=== PATIENT | female | born 1975 | race African-American/Black ===

== ENCOUNTER 2016-02-19 05:49 | Inpatient (IN) | payer MEDICAID ==
[~2016-02-19] VITALS: Ht 162.6 cm; Wt 75.0 kg
[2016-02-19] VITALS (30 sets, daily range): BP systolic 146–188; BP diastolic 75–98
[~2016-02-19 05:49] MED LIST: ASPI81TA2 PO; ASPI81TA9 PO; CARV12.5 PO; CLOP75TA PO; FERR325T58 PO; LOVA40TA2 PO; METF10002 PO; PANT40TA5 PO; PRAV10TA2 PO; [UNRECOGNIZED DRUG - REMARK] PO
--- NOTE | 2016-02-19 06:21 | PHYS DOC ---
Past Medical History Past Medical History: Anemia, Anxiety, CVA, Diabetes-Type II, Hypertension Past Surgical History: Alcohol Use: Occasionally Drug Use: Marijuana Adult General Chief Complaint Chief Complaint: HEADACHE HPI HPI Patient is a 40 year old female who presents with complaint of severe headache. Patient states that this awoke her from sleep approximately 2 hours prior to arrival. Patient states that her pain is along the right side of her head. Patient rates her pain as 10 out of 10. Patient states that she is having associated nausea and has had episodes of vomiting in the emergency department prior to my patient interview. Patient denies any fevers or recent illnesses. The patient has history of diabetes mellitus, hypertension, history of myocardial infarction and stroke. The patient is supposed to be taking medications for all of these problems however the patient states that she did not take her medications yesterday. Patient states that she does not have a primary physician at this time. Patient has not taken any medications this morning to help with her symptoms. Patient denies any unilateral weakness, difficulty with speech or swallowing, or vision loss at this time. Review of Systems Review of Systems Constitutional: Denies fever or chills [] Eyes: Denies change in visual acuity, redness, or eye pain [] HENT: Denies nasal congestion or sore throat [] Respiratory: Denies cough or shortness of breath [] Cardiovascular: Denies chest pain or edema [] GI: Nausea, vomiting, denies abdominal pain, bloody stools or diarrhea [] : Denies dysuria or hematuria [] Musculoskeletal: Denies back pain or joint pain [] Integument: Denies rash or skin lesions [] Neurologic: Headache, denies focal weakness or sensory changes [] Endocrine: Denies polyuria or polydipsia [] Current Medications Current Medications Current Medications Medications (Trade) Dose Ordered Sig/Payton Start Time Stop Time Status Last Admin Dose Admin Acetaminophen (Tylenol) 650 mg PRN Q4HRS PRN 02/19/16 08:30 02/20/16 08:29 Fentanyl Citrate (Fentanyl 2ml Vial) 50 mcg PRN Q15MIN PRN 02/19/16 06:30 02/20/16 06:29 02/19/16 08:04 50 MCG Fentanyl Citrate 50 mcg 50 mcg PRN Q2HR PRN 02/19/16 08:30 02/20/16 08:29 Hydralazine HCl (Apresoline) 10 mg 1X ONCE 02/19/16 06:30 02/19/16 06:31 DC 02/19/16 06:41 10 MG Lorazepam (Ativan) 1 mg 1X ONCE 02/19/16 07:00 02/19/16 07:08 DC 02/19/16 07:49 1 MG Lorazepam 1 mg 1 mg 1X ONCE 02/19/16 08:00 02/19/16 08:00 DC Nitroglycerin/ Dextrose (Nitroglycerin Drip) 250 ml @ 0 mls/hr CONT PRN 02/19/16 08:30 02/19/16 08:37 0 MLS/HR Ondansetron HCl (Zofran) 4 mg PRN Q8HRS PRN 02/19/16 08:30 02/20/16 08:29 Promethazine HCl (Phenergan Im) 25 mg 1X ONCE 02/19/16 07:00 02/19/16 07:01 DC 02/19/16 07:49 25 MG Sodium Chloride (Iv Sodium Chloride 0.9% 1000ml Bag) 1,000 ml @ 100 mls/hr Q10H 02/19/16 08:18 02/20/16 08:17 Allergies Allergies Allergies Coded Allergies Type Severity Reaction Last Updated Verified Sulfa (Sulfonamide Antibiotics) Allergy Intermediate hives 06/08/15 Yes lisinopril Allergy Intermediate hives 06/08/15 Yes Physical Exam Physical Exam Constitutional: Alert, afebrile, appears in moderate discomfort [] HENT: Normocephalic, atraumatic, bilateral external ears normal, oropharynx moist, no oral exudates, nose normal. [] Eyes: PERRLA, EOMI, conjunctiva normal, no discharge. [] Neck: Normal range of motion, no tenderness, supple, no stridor. [] Cardiovascular:Heart rate regular rhythm, no murmur [] Lungs & Thorax: Bilateral breath sounds clear to auscultation [] Abdomen: Bowel sounds normal, soft, no tenderness, no masses, no pulsatile masses. [] Skin: Warm, dry, no erythema, no rash. [] Back: No tenderness, no CVA tenderness. [] Extremities: No tenderness, no cyanosis, no clubbing, ROM intact, no edema. [] Neurologic: Alert and oriented X 3, normal motor function, normal sensory function, no focal deficits noted. [] Current Patient Data Vital Signs Vital Signs Date Time Temp Pulse Resp B/P Pulse Ox O2 Delivery O2 Flow Rate FiO2 02/19/16 08:37 24 02/19/16 06:41 65 217/100 02/19/16 06:37 100 Room Air 02/19/16 05:49 97.9 97.9 Lab Values Laboratory Tests Test 02/19/16 06:30 White Blood Count 9.9x10^3/uL (4.0-11.0) Red Blood Count 4.11x10^6/uL (3.50-5.40) Hemoglobin 13.3g/dL (12.0-15.5) Hematocrit 38.8% (36.0-47.0) Mean Corpuscular Volume 95fL (79-100) Mean Corpuscular Hemoglobin 33pg (25-35) Mean Corpuscular Hemoglobin Concent 34g/dL (31-37) Red Cell Distribution Width 13.5% (11.5-14.5) Platelet Count 288x10^3/uL (140-400) Neutrophils (%) (Auto) 60% (31-73) Lymphocytes (%) (Auto) 25% (24-48) Monocytes (%) (Auto) 10% (0-9) H Eosinophils (%) (Auto) 3% (0-3) Basophils (%) (Auto) 2% (0-3) Neutrophils # (Auto) 5.9x10^3uL (1.8-7.7) Lymphocytes # (Auto) 2.5x10^3/uL (1.0-4.8) Monocytes # (Auto) 1.0x10^3/uL (0.0-1.1) Eosinophils # (Auto) 0.3x10^3/uL (0.0-0.7) Basophils # (Auto) 0.1x10^3/uL (0.0-0.2) Prothrombin Time 13.4SEC (11.7-14.0) Prothrombin Time INR 1.1 (0.8-1.1) PTT 29SEC (24-38) Urine Collection Type Unknown Urine Color Yellow Urine Clarity Clear Urine pH 7.0 Urine Specific [place] 1.020 Urine Protein Negativemg/dL (NEG-TRACE) Urine Glucose (UA) Negativemg/dL (NEG) Urine Ketones (Stick) 15mg/dL (NEG) Urine Blood Large (NEG) Urine Nitrite Negative (NEG) Urine Bilirubin Negative (NEG) Urine Urobilinogen Dipstick 0.2mg/dL (0.2 mg/dL) Urine Leukocyte Esterase Negative (NEG) Urine RBC Occ/HPF (0-2) Urine WBC Rare/HPF (0-4) Urine Squamous Epithelial Cells Many/LPF Urine Bacteria Moderate/HPF (0-FEW) Urine Mucus Marked/LPF Urine Test Negative (NEG) Sodium Level 143mmol/L (136-145) Potassium Level 3.6mmol/L (3.5-5.1) Chloride Level 105mmol/L (98-107) Carbon Dioxide Level 20mmol/L (21-32) L Anion Gap 18 (6-14) H Blood Urea Nitrogen 10mg/dL (7-20) Creatinine 0.8mg/dL (0.6-1.0) Estimated GFR (Cockcroft-Gault) 95.2 BUN/Creatinine Ratio 13 (6-20) Glucose Level 186mg/dL (70-99) H Calcium Level 9.6mg/dL (8.5-10.1) Magnesium Level 1.6mg/dL (1.8-2.4) L Total Bilirubin 0.4mg/dL (0.2-1.0) Aspartate Amino Transferase (AST) 23U/L (15-37) Alanine Aminotransferase (ALT) 26U/L (14-59) Alkaline Phosphatase 74U/L (46-116) Total Protein 8.3g/dL (6.4-8.2) H Albumin 4.0g/dL (3.4-5.0) Albumin/Globulin Ratio 0.9 (1.0-1.7) L Urine Opiates Screen Neg (NEG) Urine Methadone Screen Neg (NEG) Urine Barbiturates Neg (NEG) Urine Phencyclidine Screen Neg (NEG) Urine Amphetamine/Methamphetamine Neg (NEG) Urine Benzodiazepines Screen Neg (NEG) Urine Cocaine Screen Pos (NEG) Urine Cannabinoids Screen Pos (NEG) Urine Ethyl Alcohol Neg (NEG) Laboratory Tests 02/19/16 06:30 Laboratory Tests 02/19/16 06:30 EKG EKG Interpreted by me: Heart rate 64, sinus rhythm, normal intervals, normal axis, no acute ST/T-wave abnormalities present [] Radiology/Procedures Radiology/Procedures [facility] [address] [place] [address] IMAGING REPORT Signed PATIENT: MARILU MANCIA ACCOUNT: [id number] : 1975 LOCATION: ER AGE: 40 SEX: F EXAM STATUS: REG ER ORD. PHYSICIAN: TL SANTIZO MD REASON: vomiting, hypertension, headache, rule out acute cardiopulmonary abnormalit PROCEDURE: PORTABLE CHEST 1V Portable AP view CXR: Clinical indications: Vomiting. Hypertension. Chest pain. Comparison: August 23, 2015. Findings: No acute lung infiltrate or pleural effusion or pulmonary edema or lung mass or pneumothorax is seen. The heart size, pulmonary vasculature, mediastinum and both soy are unremarkable. Impression: No acute radiographic abnormality is seen. DICTATED and SIGNED BY: SHEFALI LOERA MD DATE: 02/19/16804 CC: TL SANTIZO MD; NO PCP ~ [facility] [address] [place] [address] IMAGING REPORT Signed PATIENT: MARILU MANCIA ACCOUNT: [id number] : 1975 LOCATION: ER AGE: 40 SEX: F EXAM STATUS: REG ER ORD. PHYSICIAN: TL SANTIZO MD REASON: severe headache PROCEDURE: HEAD WO CONTRAST Clinical indications: Severe headache today with nausea.. Technique: Noncontrast axial cross sectional scanning of the head was performed. PQRS Compliance Statement: One or more of the following individualized dose reduction techniques were utilized for this examination: 1. Automated exposure control 2. Adjustment of the mA and/or kV according to patient size 3. Use of iterative reconstruction technique Comparison: None available. Findings: No acute intracranial hemorrhage or midline shift or mass-effect or hydrocephalus or extra-axial fluid collection is seen. No focal hypodense area or sulci effacement is seen to indicate an acute infarct or edema radiographically. No skull fracture or pneumocephalus is seen. No opacification of the mastoid sinuses or the paranasal sinuses is seen. The maxillary sinuses are not seen in this study. Impression: No acute intracranial abnormality is seen. DICTATED and SIGNED BY: SHEFALI LOERA MD DATE: 02/19/16 0801 CC: TL SANTIZO MD; NO PCP ~ [] Course & Med Decision Making Course & Med Decision Making Pertinent Labs and Imaging studies reviewed. (See chart for details) Patient was given lorazepam, hydralazine, Zofran, fentanyl, and Phenergan. Despite treatment, the patient continues to have severe headache and elevated blood pressure area. Patient was found to be cocaine positive in her tox screen. A consult to Dr. Jerry of cardiology. He recommended the patient be put on a nitroglycerin drip to help with her blood pressure. This was started in the emergency department with slight reduction in blood pressure 199/100. The patient will be admitted for further treatment. I spoke with Dr. Purcell who accepted care patient in hospital. Critical care time excluding procedures: 45 minutes Dragon Disclaimer Dragon Disclaimer This electronic medical record was generated, in whole or in part, using a voice recognition dictation system. Departure Departure Impression: Primary Impression: Malignant hypertension Additional Impressions: Cocaine abuse Coronary artery disease Intractable vomiting Headache Type 2 diabetes mellitus Disposition: ADMITTED INPATIENT Admitting Physician: Other Condition: GUARDED Referrals: NO PCP (PCP) Problem Qualifiers Additional Impressions: Coronary artery disease Coronary Disease-Associated Artery/Lesion type: [place] artery [place] vs. transplanted heart: [place] heart Associated angina: without angina Qualified Code: I25.10 - Atherosclerotic heart disease of [place] coronary artery without angina pectoris Intractable vomiting Vomiting type: unspecified Nausea presence: with nausea Qualified Code: R11.2 - Nausea with vomiting, unspecified Headache Headache type: unspecified Headache chronicity pattern: acute headache Intractability: intractable Qualified Code: R51 - Headache Type 2 diabetes mellitus Diabetes mellitus complication status: with hyperglycemia Diabetes mellitus chcf insulin use: without chcf use Qualified Code: E11.65 - Type 2 diabetes mellitus with hyperglycemia TL SANTIZO MD Feb 19, 2016 06:21
[2016-02-19] MEDS ORDERED: ONDANSETRON PF 4 MG/2 ML VIAL. IV ONE (06:30)
[2016-02-19] MEDS ORDERED: hydrALAZINE 20 MG/ML VIAL. IVP ONE (06:30)
[2016-02-19] MEDS ORDERED: IV NORMAL SALINE 1000ML BAG 1,000 ML IV SCH ×2 (06:30→08:18)
[2016-02-19] MEDS: FENTANYL PF 100 MCG/2 ML VIAL. IV PRN ×2 (06:37→08:04)
[2016-02-19 06:48] LABS: CALCIUM 9.6 mg/dL (8.5-10.1); CREATININE 0.8 mg/dL (0.6-1.0); GFR 95.2; POTASSIUM 3.6 mmol/L (3.5-5.1)
[2016-02-19 06:52] LABS: BARBITURATES NEG (NEG); BASO # 0.1 x10^3/uL (0.0-0.2); BASO % 2 % (0-3); BENZODIAZEPINES NEG (NEG); CANNABINOIDS POS (NEG); COCAINE POS (NEG); EOS % 3 % (0-3); HEMATOCRIT 38.8 % (36.0-47.0); HEMOGLOBIN 13.3 g/dL (12.0-15.5); LYMPH # 2.5 x10^3/uL (1.0-4.8); LYMPH % 25 % (24-48); MEAN CORPUSCULAR HEMOGLOBIN 33 pg (25-35); MEAN CORPUSCULAR HGB CONC 34 g/dL (31-37); MEAN CORPUSCULAR VOLUME 95 fL (79-100); METHADONE NEG (NEG); MONO % 10 % (0-9); NEUT % 60 % (31-73); OPIATES NEG (NEG); PHENCYCLIDINE NEG (NEG); PLATELET COUNT 288 x10^3/uL (140-400); RED BLOOD COUNT 4.11 x10^6/uL (3.50-5.40); RED CELL DISTRIBUTION WIDTH 13.5 % (11.5-14.5); WHITE BLOOD COUNT 9.9 x10^3/uL (4.0-11.0)
[2016-02-19 06:53] LABS: ALBUMIN/GLOBULIN RATIO 0.9 (1.0-1.7); MAGNESIUM 1.6 mg/dL (1.8-2.4); TOTAL BILIRUBIN 0.4 mg/dL (0.2-1.0); TOTAL PROTEIN 8.3 g/dL (6.4-8.2)
[2016-02-19 06:56] LABS: ETHANOL, URINE NEG (NEG)
[2016-02-19] MEDS ORDERED: PROMETHAZINE IM 25 MG/ML VIAL IM ONE (07:00)
[2016-02-19] MEDS ORDERED: LORAZEPAM 2 MG/ML VIAL IV ONE ×2 (07:00→08:00)
[2016-02-19 07:10] LABS: NEG OBC UR NEG; POS OBC UR POS
[2016-02-19 07:11] LABS: BILIRUBIN,URINE NEGATIVE (NEG); GLUCOSE,URINE NEGATIVE (NEG); NITRITE,URINE NEGATIVE (NEG); UROBILINOGEN,URINE 0.2 mg/dL (0.2 mg/dL)
[2016-02-19 07:23] LABS: PROTEIN,URINE NEGATIVE (NEG-TRACE); RBC,URINE OCC /HPF (0-2); WBC,URINE RARE /HPF (0-4)
[2016-02-19 07:24] LABS: BACTERIA,URINE MODERATE /HPF (0-FEW); SQUAMOUS EPITHELIAL CELL,UR MANY /LPF
[2016-02-19 07:36] LABS: INR 1.1 (0.8-1.1); PROTHROMBIN TIME PATIENT 13.4 SEC (11.7-14.0)
--- NOTE | 2016-02-19 08:06 | RAD ---
Clinical indications: Severe headache today with nausea.. Technique: Noncontrast axial cross sectional scanning of the head was performed. PQRS Compliance Statement: One or more of the following individualized dose reduction techniques were utilized for this examination: 1. Automated exposure control 2. Adjustment of the mA and/or kV according to patient size 3. Use of iterative reconstruction technique Comparison: None available. Findings: No acute intracranial hemorrhage or midline shift or mass-effect or hydrocephalus or extra-axial fluid collection is seen. No focal hypodense area or sulci effacement is seen to indicate an acute infarct or edema radiographically. No skull fracture or pneumocephalus is seen. No opacification of the mastoid sinuses or the paranasal sinuses is seen. The maxillary sinuses are not seen in this study. Impression: No acute intracranial abnormality is seen.
--- NOTE | 2016-02-19 08:08 | RAD ---
Portable AP view CXR: Clinical indications: Vomiting. Hypertension. Chest pain. Comparison: August 23, 2015. Findings: No acute lung infiltrate or pleural effusion or pulmonary edema or lung mass or pneumothorax is seen. The heart size, pulmonary vasculature, mediastinum and both soy are unremarkable. Impression: No acute radiographic abnormality is seen.
[2016-02-19] MEDS ORDERED: ONDANSETRON PF 4 MG/2 ML VIAL. IV PRN (08:30)
[2016-02-19] MEDS ORDERED: FENTANYL PF 100 MCG/2 ML VIAL. IV PRN (08:30)
[2016-02-19] MEDS ORDERED: NITROGLYCERIN PREMIX 250 ML IV PRN (08:30)
[2016-02-19] MEDS ORDERED: ACETAMINOPHEN 325 MG TABLET. PO PRN (08:30)
[2016-02-19] MEDS ORDERED: MAGNESIUM SULFATE 2GM 50 ML IV ONE (10:00)
[2016-02-19 10:20] LABS: CKMB INDEX 0.8 % (0-4); CKMB MASS 0.7 ng/mL (0.0-3.6)
--- NOTE | 2016-02-19 10:20 | PDOC2 ---
CARDIAC CONSULT DATE OF CONSULT Date of Consult DATE: 02/19/16 TIME: 10:16 REASON FOR CONSULT Reason for Consult: malignant HTN REFERRING PHYSICIAN Referring Physician: Dr. Austin Fulton SOURCE Source: Chart review, Patient (who is a poor historian) HISTORY OF PRESENT ILLNESS HISTORY OF PRESENT ILLNESS 40 year old female admitted through the ER with accelerated HTN and headaches which awakened her about 0200 today. Missed all medications in the last 24 - 48 hours. ? CP prior to admission. Patient is very groggy during this interview and was unable to remain awake for questioning. UDS + cocaine and admits to THC use. No acute changes in EKG. Reason for Visit: HTN PAST MEDICAL HISTORY Cardiovascular: CAD (BMS to RPLB, OM AND LAD- 08/2015), HTN, Hyperlipidemia CENTRAL NERVOUS SYSTEM: CVA, TIA Heme/Onc: Anemia NOS Psych: Anxiety Endocrine: Diabetes PAST SURGICAL HISTORY Past Surgical History: , Other (cardiac cath) FAMILY HISTORY Family History: Diabetes SOCIAL HISTORY Smoke: 1 pack per day ALCOHOL: occassional Drugs: Cocaine, Marijuana CURRENT MEDICATIONS CURRENT MEDICATIONS Current Medications Medications (Trade) Dose Ordered Sig/Payton Route PRN Reason Start Time Stop Time Status Last Admin Dose Admin Sodium Chloride (Iv Sodium Chloride 0.9% 1000ml Bag) 1,000 ml @ 100 mls/hr Q10H IV 02/19/16 06:30 02/19/16 16:29 02/19/16 06:33 Hydralazine HCl (Apresoline) 10 mg 1X ONCE IVP 02/19/16 06:30 02/19/16 06:31 DC 02/19/16 06:41 Fentanyl Citrate (Fentanyl 2ml Vial) 50 mcg PRN Q15MIN PRN IV PAIN GREATER THAN 3/10 02/19/16 06:30 02/20/16 06:29 02/19/16 08:04 Ondansetron HCl (Zofran) 4 mg 1X ONCE IV 02/19/16 06:30 02/19/16 06:31 DC 02/19/16 06:35 Promethazine HCl (Phenergan Im) 25 mg 1X ONCE IM 02/19/16 07:00 02/19/16 07:01 DC 02/19/16 07:49 Lorazepam 1 mg 1 mg 1X ONCE IV 02/19/16 07:00 02/19/16 07:08 DC 02/19/16 07:49 Nitroglycerin/ Dextrose (Nitroglycerin Drip) 250 ml @ 0 mls/hr CONT PRN IV SEE I/O RECORD 02/19/16 08:30 02/19/16 08:37 ALLERGIES ALLERGIES: Coded Allergies: Sulfa (Sulfonamide Antibiotics) (Verified Allergy, Intermediate, hives, ) lisinopril (Verified Allergy, Intermediate, hives, 06/08/15) ROS Review of System 14 point review attempted - pertinent positives in HPI PHYSICAL EXAM General: Cooperative, No acute distress HEENT: Atraumatic, PERRLA Lungs: Clear to auscultation Heart: Regular rate, Normal S1, Normal S2, No murmurs Abdomen: Normal bowel sounds, Soft Extremities: No edema, Normal pulses Skin: No rashes Neuro: Normal speech Psych/Mental Status: Mood NL MUSCULOSKELETAL: No deformity VITALS VITALS Vital Signs Date Time Temp Pulse Resp B/P Pulse Ox O2 Delivery O2 Flow Rate FiO2 02/19/16 09:25 62 34 184/98 100 02/19/16 06:37 Room Air 02/19/16 05:49 97.9 97.9 LABS Lab: Laboratory Tests Test 02/19/16 06:30 White Blood Count 9.9x10^3/uL (4.0-11.0) Red Blood Count 4.11x10^6/uL (3.50-5.40) Hemoglobin 13.3g/dL (12.0-15.5) Hematocrit 38.8% (36.0-47.0) Mean Corpuscular Volume 95fL (79-100) Mean Corpuscular Hemoglobin 33pg (25-35) Mean Corpuscular Hemoglobin Concent 34g/dL (31-37) Red Cell Distribution Width 13.5% (11.5-14.5) Platelet Count 288x10^3/uL (140-400) Neutrophils (%) (Auto) 60% (31-73) Lymphocytes (%) (Auto) 25% (24-48) Monocytes (%) (Auto) 10% (0-9) Eosinophils (%) (Auto) 3% (0-3) Basophils (%) (Auto) 2% (0-3) Neutrophils # (Auto) 5.9x10^3uL (1.8-7.7) Lymphocytes # (Auto) 2.5x10^3/uL (1.0-4.8) Monocytes # (Auto) 1.0x10^3/uL (0.0-1.1) Eosinophils # (Auto) 0.3x10^3/uL (0.0-0.7) Basophils # (Auto) 0.1x10^3/uL (0.0-0.2) Prothrombin Time 13.4SEC (11.7-14.0) Prothromb Time International Ratio 1.1 (0.8-1.1) Activated Partial Thromboplast Time 29SEC (24-38) Urine Collection Type Unknown Urine Color Yellow Urine Clarity Clear Urine pH 7.0 Urine Specific [place] 1.020 Urine Protein Negativemg/dL (NEG-TRACE) Urine Glucose (UA) Negativemg/dL (NEG) Urine Ketones (Stick) 15mg/dL (NEG) Urine Blood Large (NEG) Urine Nitrite Negative (NEG) Urine Bilirubin Negative (NEG) Urine Urobilinogen Dipstick 0.2mg/dL (0.2 mg/dL) Urine Leukocyte Esterase Negative (NEG) Urine RBC Occ/HPF (0-2) Urine WBC Rare/HPF (0-4) Urine Squamous Epithelial Cells Many/LPF Urine Bacteria Moderate/HPF (0-FEW) Urine Mucus Marked/LPF Urine Test Negative (NEG) Sodium Level 143mmol/L (136-145) Potassium Level 3.6mmol/L (3.5-5.1) Chloride Level 105mmol/L (98-107) Carbon Dioxide Level 20mmol/L (21-32) Anion Gap 18 (6-14) Blood Urea Nitrogen 10mg/dL (7-20) Creatinine 0.8mg/dL (0.6-1.0) Estimated GFR (Cockcroft-Gault) 95.2 BUN/Creatinine Ratio 13 (6-20) Glucose Level 186mg/dL (70-99) Calcium Level 9.6mg/dL (8.5-10.1) Magnesium Level 1.6mg/dL (1.8-2.4) Total Bilirubin 0.4mg/dL (0.2-1.0) Aspartate Amino Transf (AST/SGOT) 23U/L (15-37) Alanine Aminotransferase (ALT/SGPT) 26U/L (14-59) Alkaline Phosphatase 74U/L (46-116) Total Protein 8.3g/dL (6.4-8.2) Albumin 4.0g/dL (3.4-5.0) Albumin/Globulin Ratio 0.9 (1.0-1.7) Urine Opiates Screen Neg (NEG) Urine Methadone Screen Neg (NEG) Urine Barbiturates Neg (NEG) Urine Phencyclidine Screen Neg (NEG) Urine Amphetamine/Methamphetamine Neg (NEG) Urine Benzodiazepines Screen Neg (NEG) Urine Cocaine Screen Pos (NEG) Urine Cannabinoids Screen Pos (NEG) Urine Ethyl Alcohol Neg (NEG) IMAGES IMAGES CXR without acute process EKG EKG SR without acute changes ECHOCARDIOGRAM ECHOCARDIOGRAM 08/25/2015: TTE: The left ventricle is normal size. Left ventricle systolic function is normal. The Ejection Fraction is 55-60%. There is no significant aortic valvular stenosis. Doppler and Color Flow revealed no significant aortic regurgitation. Doppler and Color Flow revealed trace mitral regurgitation. Doppler and Color Flow revealed trace to mild tricuspid regurgitation. The PA pressure was estimated at 44 mmHg. HEART CATH HEART CATH 08/25/2015: Conclusion 1. Three-vessel coronary artery disease 2. Successful PCI/bare metal stents placement to the posterolateral branch of right coronary artery, obtuse marginal branch of left circumflex artery and the left anterior descending artery Recommendations 1. Plavix 75 mg daily for preferably one year 2. Aspirin 325 mg daily if okay with gastroenterology team (anemia from possible GI bleed) 3. Check 2-D echo to assess LV systolic function 4. Cardiovascular risk factor modification ASSESSMENT/PLAN ASSESSMENT/PLAN 1. malignant HTN NO BETA-BLOCKERS DUE TO COCAINE USE will add amlodipine as must stop usual carvedilol allergy to ACEI prn hydralazine 2. CAD with multiple BMS preserved LVEF ? CP continue DAPT and medical management 3. HLD check FLP in a.m continue statin therapy 4. DM, II per primary service 5. polysubstance abuse cocaine, THC, tobacco, ETOH 6. hypomagnesemia replace Problems: ALIX BARRAZA APRN Feb 19, 2016 10:20
[2016-02-19] MEDS ORDERED: hydrALAZINE 20 MG/ML VIAL. IVP PRN ×2 (10:30→14:15)
[2016-02-19] MEDS: AMLODIPINE BESYLATE 5 MG TABLET PO SCH (11:31)
--- NOTE | 2016-02-19 11:42 | EKG ---
[facility] [address] [place] [address] Test Date: 2016-02-19 Test Time: 05:55:11 Pat Name: MARILU MANCIA Department: Room: 205 1 Gender: F [employer] Supervisor: : 1975 Requested By: TL SANTIZO Order Number: [id number] Reading MD: Donna Matthews Measurements Intervals [place] Rate: 64 P: [place]: QRS: 41 QRSD: 84 T: 27 QT: 408 QTc: 421 Interpretive Statements IRREGULAR RHYTHM, NO P-WAVE FOUND OTHERWISE NORMAL ECG RI6.01 Compared to ECG 08/24/2015 12:55:21 Sinus rhythm no longer present Electronically Signed On 02-21-2016 0:16:10 CATHOLIC PRIEST by Donna Matthews
[2016-02-19] MEDS ORDERED: ENOXAPARIN 40 MG/0.4 ML DISP.SYRIN. SQ SCH (15:00)
--- NOTE | 2016-02-19 15:32 | HP ---
ADMIT DATE: 02/19/2016 CHIEF COMPLAINT: Headache, hypertensive urgency. HISTORY OF PRESENT ILLNESS: The patient is a 40-year-old woman with history of CAD, status post RI and stent placement x 3 in 08/2015. She presented to the Emergency Room after waking up with severe headache over her right frontal area. She tried to take Goody's powder for this, unfortunately without any result. She came to the Emergency Room, was found with severe hypertension and was admitted for further monitoring. Of note, her drug screen was positive for cocaine as well as cannabinoids, both of which she professes not know how that happened. PAST MEDICAL HISTORY: CAD status post stent placement x 3 in 08/2015 and hypertension. FAMILY HISTORY: No family history of CAD. Diabetes and hypertension in mother and two sisters. SOCIAL HISTORY: Recently lost her home, currently with her sister. Started smoking again 1 pack a day, positive drug use. ALLERGIES: SULFA AND LISINOPRIL. MEDICATIONS: Home medications were reconciled with MAR. REVIEW OF SYSTEMS: Positive for right frontal headache, stuffy nose, postnasal drip. No cough, no chest pain, no shortness of breath. Rest of organ system review is completely negative. PHYSICAL EXAMINATION: VITAL SIGNS: From today show a blood pressure of 183/89, heart rate of 68, respiratory rate at 20. She is afebrile. GENERAL: This is a well-nourished 40-year-old woman, alert and oriented, in no acute distress. HEENT: Shows no scleral icterus. Tenderness to palpation over the right orbital ridge and maxillary sinuses. NECK: Supple, without any lymphadenopathy. LUNGS: Clear to auscultation bilaterally. HEART: Regular rate and rhythm. ABDOMEN: Has positive bowel sounds, soft, nontender, without any organomegaly or masses. EXTREMITIES: Show no edema. SKIN: Warm, soft and dry without any rash. NEUROLOGIC: She appears grossly intact. LABORATORY DATA: CBC from today shows a WBC of 9.9, hemoglobin 13.3 and a platelet count of 288. Essentially normal differential. Chemistries with a BUN and creatinine of 10 and 0.8. Normal electrolytes, normal LFTs. Only abnormality is magnesium of 1.6, glucose at 186, repeat fingerstick at 260. Toxicology is positive for urine cocaine and cannabinoids. UA with large blood, occasional rbc, rare wbc, and moderate bacteria. Coags within normal. RADIOGRAPHIC FINDINGS: Chest x-ray without acute radiographic abnormality. ASSESSMENT AND PLAN: The patient is a 40-year-old woman with coronary artery disease, who presents with what appears to be sinus pressure headache. She is found with hypertensive urgency. For her sinus headache, we will give her Excedrin and decongestant. For the more urgent issue of hypertension, we will have to hold off beta blockers due to recent cocaine use, and she has a listed ALLERGY TO LISINOPRIL, specificity unknown. We will start hydralazine IV p.r.n. Start Norvasc for long-term blood pressure control. We will continue her other home medications including aspirin and clopidogrel. She is on lovastatin for cardiac risk control. Diabetes mellitus is currently poorly controlled. She did not receive her morning medication. We will continue on metformin, add insulin sliding scale. Prophylaxis will be achieved with Lovenox and PPI, which she is already taken for gastroesophageal reflux disease. The patient is on antidepressants, but cannot recall the name. We will try and get more information from her pharmacy. EULA KENNEDY MD DR: SHERRIE/nts JOB#: [id number] / [id number]
[2016-02-19] MEDS: ASA/APAP/CAFFEINE 250/250/65MG TABLET. PO PRN (18:19)
[2016-02-19] MEDS: METFORMIN 1,000 MG TABLET PO SCH (18:19)
[2016-02-19] MEDS ORDERED: OXYMETAZOLINE 0.05% NASAL SPRAY 30ML BOTTLE. NS PRN ×2 (20:00)
[2016-02-19] MEDS ORDERED: ATORVASTATIN CALCIUM 10 MG TABLET. PO SCH (21:00)
[2016-02-20] VITALS (10 sets, daily range): BP systolic 142–181; BP diastolic 80–102
[2016-02-20 03:42] LABS: BASO # 0.1 x10^3/uL (0.0-0.2); BASO % 1 % (0-3); EOS % 2 % (0-3); HEMATOCRIT 33.7 % (36.0-47.0); HEMOGLOBIN 11.6 g/dL (12.0-15.5); LYMPH % 24 % (24-48); MEAN CORPUSCULAR HEMOGLOBIN 34 pg (25-35); MEAN CORPUSCULAR HGB CONC 35 g/dL (31-37); MEAN CORPUSCULAR VOLUME 97 fL (79-100); MONO % 10 % (0-9); NEUT % 64 % (31-73); PLATELET COUNT 242 x10^3/uL (140-400); RED BLOOD COUNT 3.47 x10^6/uL (3.50-5.40); RED CELL DISTRIBUTION WIDTH 13.8 % (11.5-14.5); WHITE BLOOD COUNT 8.5 x10^3/uL (4.0-11.0)
[2016-02-20 04:06] LABS: CALCIUM 8.6 mg/dL (8.5-10.1); CREATININE 0.9 mg/dL (0.6-1.0); GFR 83.1; POTASSIUM 3.3 mmol/L (3.5-5.1)
[2016-02-20 04:15] LABS: CHOLESTEROL/HDL RATIO 3.2
--- NOTE | 2016-02-20 06:53 | ACF ---
Admission Forms Criteria HEADACHES Clinical Indications for Admission to Inpatient Care (Place 'X' for any and all applicable criteria): Admission is indicated for ANY ONE of the following(1)(2)(3)(4): [X]I. Inpatient admission required rather than observational care (Also use Headaches: Observation Care as appropriate) because of ANY ONE of the following: [X]a) Severe pain requiring acute inpatient management [ ]b) Altered mental status that is severe or persistent [X]c) Vomiting or dehydration that is severe or persistent [ ]d) New-onset focal neurologic deficit that is severe or persistent [X]e) Hypertension requiring inpatient treatment [ ]f) Severe (new) neurologic findings requiring inpatient care as indicated by ANY ONE of following(9)(10): [ ]1) Papilledema [ ]2) Cerebral edema [ ]3) Mass effect on CT scan [ ]4) Cerebral bleeding, ischemia, or vasospasm(16) [ ]5) Hydrocephalus(17) [ ]6) Uncontrolled seizures [ ]g) IV infusion of anticoagulation, platelet inhibitors vasoactive, or antiarrhythmic medication. [ ]h) Cerebral bleeding, hydrocephalus, or vasospasm monitoring (16) [ ]i) Increased intracranial pressure or cerebral edema monitoring (17) [ ]j) Other condition, treatment or monitoring requiring inpatient admission [ ]II. Unruptured but threatening aneurysm or vascular malformation [ ]III. Venous sinus thrombosis [ ]IV. Increased intracranial pressure [ ]V. Cerebral spinal fluid leak with decreased intracranial pressure [ ]. Medication-overuse headache that has failed all outpatient management options [ ]VII. Vasculitis (eg, giant cell (temporal) arteritis, central nervous system vasculitis) requiring IV corticosteroids, IV antithrombotic therapy, or inpatient monitoring (eg, visual symptoms or findings, other ischemic manifestations)[A](10)(11) Extended stay beyond goal length of stay may be needed for (27): [ ]a) Intractable migraine [ ]b) Subarachnoid or intracranial hemorrhage [ ]c) Malignant hypertension [ ]d) Detoxification from drug withdrawal in medication-overuse headache (29) The original [facility] content created by [employer] has been revised. The portions of the content which have been revised are identified through the use of italic text or in bold, and [employer] has neither reviewed nor approved the modified material.All other unmodified content is copyright [facility]. Please see references footnoted in the original [facility] edition 2016 Admission Criteria Met?: Yes CINDY HE Feb 20, 2016 06:53
[2016-02-20] MEDS ORDERED: FLUTICASONE 50MCG/NASAL SPRAY 16GM BOTTLE. NS SCH (09:00)
[2016-02-20] MEDS ORDERED: FERROUS SULFATE 325 MG TABLET PO SCH (09:00)
[2016-02-20] MEDS: ASPIRIN 81 MG TAB.CHEW PO SCH ×2 (09:43→13:22)
[2016-02-20] MEDS: AMLODIPINE BESYLATE 5 MG TABLET PO SCH ×2 (09:44→13:23)
[2016-02-20] MEDS: CLOPIDOGREL BISULFATE 75 MG TABLET PO SCH ×2 (09:44→13:22)
[2016-02-20] MEDS: METFORMIN 1,000 MG TABLET PO SCH ×2 (09:44→13:22)
[2016-02-20] MEDS: PANTOPRAZOLE 40 MG TABLET. PO SCH ×2 (09:44→13:22)
[2016-02-20] MEDS: ASA/APAP/CAFFEINE 250/250/65MG TABLET. PO PRN (09:45)
--- NOTE | 2016-02-20 10:45 | PDOC ---
CARDIO Progress Notes Date and Time Date of Service 02/20/2016 Time of Evaluation 1040 Subjective Subjective: No Chest Pain, No shortness of breath, No Palpitations, No Dizziness, Other (teary talking about family psychosocial issues) Vitals Vitals Vital Signs Date Time Temp Pulse Resp B/P Pulse Ox O2 Delivery O2 Flow Rate FiO2 02/20/16 10:17 98.0 89 18 163/91 98 Room Air 98.0 Weight Weight [ ] Input and Output Intake and Output Intake and Output 02/20/16 07:00 Intake Total 660 ml Output Total 380 ml Balance 280 ml Intake Oral 660 ml Output Urine Total 350 ml Emesis 30 ml # Voids 2 Laboratory Labs Laboratory Tests Test 02/20/16 03:22 White Blood Count 8.5x10^3/uL (4.0-11.0) Red Blood Count 3.47x10^6/uL (3.50-5.40) Hemoglobin 11.6g/dL (12.0-15.5) Hematocrit 33.7% (36.0-47.0) Mean Corpuscular Volume 97fL (79-100) Mean Corpuscular Hemoglobin 34pg (25-35) Mean Corpuscular Hemoglobin Concent 35g/dL (31-37) Red Cell Distribution Width 13.8% (11.5-14.5) Platelet Count 242x10^3/uL (140-400) Neutrophils (%) (Auto) 64% (31-73) Lymphocytes (%) (Auto) 24% (24-48) Monocytes (%) (Auto) 10% (0-9) Eosinophils (%) (Auto) 2% (0-3) Basophils (%) (Auto) 1% (0-3) Neutrophils # (Auto) 5.4x10^3uL (1.8-7.7) Lymphocytes # (Auto) 2.0x10^3/uL (1.0-4.8) Monocytes # (Auto) 0.8x10^3/uL (0.0-1.1) Eosinophils # (Auto) 0.1x10^3/uL (0.0-0.7) Basophils # (Auto) 0.1x10^3/uL (0.0-0.2) Sodium Level 137mmol/L (136-145) Potassium Level 3.3mmol/L (3.5-5.1) Chloride Level 102mmol/L (98-107) Carbon Dioxide Level 24mmol/L (21-32) Anion Gap 11 (6-14) Blood Urea Nitrogen 10mg/dL (7-20) Creatinine 0.9mg/dL (0.6-1.0) Estimated GFR (Cockcroft-Gault) 83.1 Glucose Level 240mg/dL (70-99) Calcium Level 8.6mg/dL (8.5-10.1) Triglycerides Level 124mg/dL (0-150) Cholesterol Level 186mg/dL (0-200) LDL Cholesterol, Calculated 102mg/dL (0-100) VLDL Cholesterol, Calculated 25mg/dL (0-40) HDL Cholesterol 59mg/dL (40-60) Cholesterol/HDL Ratio 3.2 Physical Exam HEENT: Neck Supple W Full Motion Chest: Symmetric LUNGS: Clear to Auscultation Heart: S1S2, RRR (SR no signficiant ectopies overnight) Abdomen: Soft N/T Extremities: No Calf Tenderness Neurology: alert, oriented, follow commands Assessment Assessment 1. Malignant HTN NO BETA-BLOCKERS DUE TO COCAINE USE Remains labile. Continue with amlodipine. Start on hydralazine and imdur. Allergy to ACEi (hives) Will reevaluate BB use at a later time when abstinence to recreational drugs is consistent. 2. CAD with multiple BMS preserved LVEF continue DAPT and medical management 3. HLD Lipids close to goal continue statin therapy 4. DM, II uncontrolled. Per PCP 5. polysubstance abuse cocaine, THC, tobacco, ETOH Discussed cessation and compliance with cardiac treatments. 6. hypomagnesemia/hypokalemia Check Mg. Replace K. 7. Anxiety Issues with family psychosocial issues Defer to PCP KEILY BUCIO APRN Feb 20, 2016 10:45
[2016-02-20] MEDS ORDERED: POTASSIUM CHLORIDE 20 MEQ TABLET.ER. PO ONE (11:30)
[2016-02-20] MEDS ORDERED: DEXTROSE 50% 25 GM / 50ML DISP.SYRIN. IV PRN (11:45)
[2016-02-20] MEDS ORDERED: INSULIN ASPART 300 UNITS/3 ML INSULN.PEN SQ SCH (12:00)
--- NOTE | 2016-02-20 12:24 | DISCH ---
DISCHARGE INSTRUCTIONS Condition on Discharge Condition on Discharge: Stable Activity After Discharge Activity Instructions for Disc: No restrictions Diet after Discharge Diet after Discharge: [facility] Contacting the DR. after DC Call your doctor for: If your condition worsens Follow-Up Follow up with: PCP EULA STEWARD MD Feb 20, 2016 12:24
[2016-02-20] MEDS ORDERED: HYDR-2868 PO (12:27)
[2016-02-20] MEDS ORDERED: FLUT16SP NS (12:27)
[2016-02-20] MEDS ORDERED: AMLO5TAB2 PO (12:27)
[2016-02-20] MEDS ORDERED: ISOS30TA4 PO (12:27)
[2016-02-20] MEDS ORDERED: HYDRALAZINE 25 MG TABLET PO SCH (14:00)
[2016-02-20] MEDS ORDERED: ATORVASTATIN CALCIUM 40 MG TABLET. PO SCH (21:00)
--- NOTE | 2016-02-20 22:18 | DS ---
DATE OF DISCHARGE: 02/20/2016 CHIEF COMPLAINT: Headache, hypertensive urgency. HOSPITAL COURSE: The patient is a 40-year-old -[place] woman who presented with headache into the Emergency Room and was found with severe hypertension. She does carry a diagnosis of CAD with an CA and stent placement x 3 in August 2015. She was therefore admitted for rule out ACS and blood pressure control. Headache was addressed with Excedrin and nasal steroids with good improvement. As far as cardiac issues were concerned, she was ruled out by serial enzymes and EKGs. Beta blockers were held secondary to cocaine use, and she was started on Norvasc and hydralazine as well as Imdur with improved, albeit not ideal control. Because of social issues including moving into a new apartment, she was discharged on her urging on 02/20/2016. She will follow up with her filenet architect for adjustment of her blood pressure medications LUANNE. PHYSICAL EXAMINATION: VITAL SIGNS: From today show a blood pressure of 148/96, heart rate of 95, respiratory rate at 18. She is afebrile. GENERAL: This is a well-nourished 40-year-old -[place] woman, alert and oriented, no acute distress. HEENT: Shows no scleral icterus. Oral mucosa is pink and moist. NECK: Supple. LUNGS: Clear. HEART: Regular rate and rhythm. ABDOMEN: Positive bowel sounds, soft, nontender. EXTREMITIES: Show no edema. DISCHARGE DATE: 02/20/2016 DISCHARGE DISPOSITION: To home. DISCHARGE CONDITION: Improved. DISCHARGE DIAGNOSES: 1. Hypertensive urgency. 2. Cocaine use. 3. Sinus headache. DISCHARGE MEDICATIONS: Please refer to MAR. DISCHARGE INSTRUCTIONS: The patient will follow up with her filenet architect LUANNE. EULA KENNEDY MD DR: UR/nts JOB#: [id number] / [id number] VANDA
[2016-02-21] MEDS ORDERED: ISOSORBIDE MONONITRATE ER 30 MG TAB.ER.24H PO SCH (09:00)
== END 2016-02-20 15:29 | disposition home or self-care (01) | DRG 103 ==
LOC: ER 05:49 → 2 NORTH 07:26
PROVIDERS: ADMIT Internal Medicine Hematology & Oncology; ATTEND Internal Medicine Hematology & Oncology
DX: R51 Headache (principal); I16.0 Hypertensive urgency; E78.5 Hyperlipidemia, unspecified; E83.42 Hypomagnesemia; E87.6 Hypokalemia; F14.10 Cocaine abuse, uncomplicated; F17.200 Nicotine dependence, unspecified, uncomplicated; F41.9 Anxiety disorder, unspecified; E11.65 Type 2 diabetes mellitus with hyperglycemia; I25.10 Atherosclerotic heart disease of native coronary artery without angina pectoris; K21.9 Gastro-esophageal reflux disease without esophagitis; Z82.49 Family history of ischemic heart disease and other diseases of the circulatory system; I25.2 Old myocardial infarction; Z83.3 Family history of diabetes mellitus; Z86.73 Personal history of transient ischemic attack (TIA), and cerebral infarction without residual deficits; Z88.8 Allergy status to other drugs, medicaments and biological substances; Z95.5 Presence of coronary angioplasty implant and graft; Z88.2 Allergy status to sulfonamides; Z79.4 Long term (current) use of insulin; I10 Essential (primary) hypertension; D64.9 Anemia, unspecified
CPT/HCPCS: 36415; 70450; 71010; 80048; 80053; 80061; 81001; 81025; 82553; 82947; 83735; 84484; 85027; 85610; 85730; 87086; 93005; 96372; 96374; 96375; G0481; J0360; J1650; J1815; J2060; J2405; J2550; J3010; J3490; J7030; J7060; 99285-25

== ENCOUNTER 2016-03-05 15:13 | Emergency (ER) | payer MEDICAID ==
[~2016-03-05] VITALS: Ht 162.6 cm; Wt 68.0 kg
[~2016-03-05 15:13] MED LIST changes: +AMLO5TAB2 PO; +FLUT16SP NS; +HYDR-2868 PO; +ISOS30TA4 PO
[2016-03-05] MEDS ORDERED: NAPROXEN 500 MG TABLET PO STA (15:30)
[2016-03-05] MEDS ORDERED: HYDROCODONE/APAP 5/325MG TABLET. PO ONE (15:30)
[2016-03-05] MEDS ORDERED: ONDANSETRON ODT 4 MG TAB.RAPDIS PO ONE (15:30)
--- NOTE | 2016-03-05 15:37 | PHYS DOC ---
Past Medical History Past Medical History: Anemia, Anxiety, CVA, Diabetes-Type II, Hypertension Past Surgical History: Alcohol Use: Occasionally Drug Use: Marijuana Adult General Chief Complaint Chief Complaint: ABDOMINAL PAIN HPI HPI Patient is a 40 year old female with history of anxiety, hypertension, diabetes type 2, CVA, who presents today with moderate right pelvic pain that began at 1:00 PM when having sex with her partner. Patient denies any chance she is , denies any concerns for STDs. Denies any urgency frequency dysuria. Denies any chance she is . Patient is very tearful. Review of Systems Review of Systems Constitutional: Denies fever or chills [] Eyes: Denies change in visual acuity, redness, or eye pain [] HENT: Denies nasal congestion or sore throat [] Respiratory: Denies cough or shortness of breath [] Cardiovascular: No additional information not addressed in HPI [] GI: Right pelvic pain : Denies dysuria or hematuria [] Musculoskeletal: Denies back pain or joint pain [] Integument: Denies rash or skin lesions [] Neurologic: Denies headache, focal weakness or sensory changes [] Endocrine: Denies polyuria or polydipsia [] Current Medications Current Medications Current Medications Medications (Trade) Dose Ordered Sig/Payton Start Time Stop Time Status Last Admin Dose Admin Acetaminophen/ Hydrocodone Bitart (Lortab 5/325) 2 tab 1X ONCE 03/05/16 15:30 03/05/16 15:33 DC 03/05/16 15:50 2 TAB Clonidine HCl (Catapres) 0.1 mg 1X ONCE 03/05/16 15:45 03/05/16 15:46 DC 03/05/16 15:50 0.1 MG Naproxen (Naprosyn) 500 mg 1X STAT 03/05/16 15:30 03/05/16 15:33 DC 03/05/16 15:49 500 MG Ondansetron HCl (Zofran Odt) 4 mg 1X ONCE 03/05/16 15:30 03/05/16 15:33 DC 03/05/16 15:51 4 MG Allergies Allergies Allergies Coded Allergies Type Severity Reaction Last Updated Verified Sulfa (Sulfonamide Antibiotics) Allergy Intermediate hives 06/08/15 Yes lisinopril Allergy Intermediate hives 06/08/15 Yes Physical Exam Physical Exam Constitutional: Well developed, well nourished, no acute distress, non-toxic appearance. [] HENT: Normocephalic, atraumatic, bilateral external ears normal, oropharynx moist, no oral exudates, nose normal. [] Eyes: PERRLA, EOMI, conjunctiva normal, no discharge. [] Neck: Normal range of motion, no tenderness, supple, no stridor. [] Cardiovascular:Heart rate regular rhythm, no murmur [] Lungs & Thorax: Bilateral breath sounds clear to auscultation [] Abdomen: Bowel sounds normal, soft, no tenderness, no masses, no pulsatile masses. [] Pelvic exam External pelvic appears normal. Cervix is closed, no CMT, mild right adnexal tenderness, no left adnexal tenderness, small amount of white discharge in the vaginal vault. Skin: Warm, dry, no erythema, no rash. [] Back: No tenderness, no CVA tenderness. [] Extremities: No tenderness, no cyanosis, no clubbing, ROM intact, no edema. [] Neurologic: Alert and oriented X 3, normal motor function, normal sensory function, no focal deficits noted. [] Psychologic: Affect normal, judgement normal, mood normal. [] Current Patient Data Vital Signs Vital Signs Date Time Temp Pulse Resp B/P Pulse Ox O2 Delivery O2 Flow Rate FiO2 03/05/16 15:50 72 149/102 03/05/16 15:50 18 Room Air 03/05/16 15:32 97.9 100 97.9 Lab Values Laboratory Tests Test 03/05/16 15:20 Urine Collection Type Unknown Urine Color Yellow Urine Clarity Clear Urine pH 7.0 Urine Specific [place] 1.010 Urine Protein Negativemg/dL (NEG-TRACE) Urine Glucose (UA) Negativemg/dL (NEG) Urine Ketones (Stick) 15mg/dL (NEG) Urine Blood Negative (NEG) Urine Nitrite Negative (NEG) Urine Bilirubin Negative (NEG) Urine Urobilinogen Dipstick 0.2mg/dL (0.2 mg/dL) Urine Leukocyte Esterase Negative (NEG) Urine RBC Occ/HPF (0-2) Urine WBC 0/HPF (0-4) Urine Squamous Epithelial Cells Few/LPF Urine Bacteria 0/HPF (0-FEW) Urine Mucus Mod/LPF Urine Test Negative (NEG) Microbiology 03/05/16 Wet Prep - Final, Complete EKG EKG [] Radiology/Procedures Radiology/Procedures [] Course & Med Decision Making Course & Med Decision Making Pertinent Labs and Imaging studies reviewed. (See chart for details) Patient is in the Ed with Right Pelvic pain that begun at 1 pm while having sex with the partner. She is very tearful on arrival via EMS. Negative urine hCG, UA negative for infection. Wet prep negative for any acute findings. Pelvic ultrasound noted for probable complex cyst associated with the right ovary with recommendation for follow-up imaging. Talked to patient this results. She has a PCP she follows up for her OB care. Recommended she follows up with the PCP and have follow-up imaging done. She is provided return precautions and discharged in stable condition. Dragon Disclaimer Dragon Disclaimer This electronic medical record was generated, in whole or in part, using a voice recognition dictation system. Departure Departure Impression: Primary Impression: Ovarian cyst Additional Impression: Dyspareunia Disposition: 01 HOME, SELF-CARE Condition: STABLE Referrals: NO PCP (PCP) ROSALIA LEVINE MD Follow-up with your doctor in the next 7 days. Patient Instructions: Dyspareunia, Ovarian Cyst Additional Instructions: You were seen for right pelvic pain after during intercourse. Your ultrasound shows you have a cyst on the right ovary, they recommended follow-up imaging, contact your primary care doctor or INSURANCE CLAIM REPRESENTATIVE and arrange for follow-up imaging. Take the prescribed pain medicines as needed. Come back to the emergency room if symptoms worsen. Scripts Naproxen 500 Mg Tablet.dr1 Tab PO BID #60 TAB Ref 2 Prov:MALENA CID APRN 03/05/16 Hydrocodone/Apap 5-325 ([place] 5-325 Tablet)1 Each Tablet1-2 Tab PO Q4-6HRS #14 TAB Prov:MALENA CID APRN 03/05/16 Problem Qualifiers Primary Impression: Ovarian cyst Laterality: right Qualified Code: N83.201 - Unspecified ovarian cyst, right side MALENA CID HYUN Mar 05, 2016 15:37
[2016-03-05] MEDS ORDERED: CLONIDINE HCL 0.1 MG TABLET PO ONE (15:45)
[2016-03-05 15:58] LABS: NEG OBC UR NEG; POS OBC UR POS
[2016-03-05 16:03] LABS: BILIRUBIN,URINE NEGATIVE (NEG); GLUCOSE,URINE NEGATIVE (NEG); NITRITE,URINE NEGATIVE (NEG); PROTEIN,URINE NEGATIVE (NEG-TRACE); UROBILINOGEN,URINE 0.2 mg/dL (0.2 mg/dL)
[2016-03-05 16:19] LABS: BACTERIA,URINE 0 /HPF (0-FEW); RBC,URINE OCC /HPF (0-2); SQUAMOUS EPITHELIAL CELL,UR FEW /LPF; WBC,URINE 0 /HPF (0-4)
--- NOTE | 2016-03-05 17:00 | RAD ---
Indication pelvic pain. Initially transabdominal scans were obtained. The initial transabdominal scans were supplemented with transvaginal scans. No similar imaging is available. The hCG status is uncertain but for the purposes of this dictation will be assumed to be negative. The uterus measures 12.4 x 6.9 x 6.7 cm. In the posterior body of the uterus there is a 5 cm mass compatible with a fibroid. Endometrial thickness is within normal limits at 8 mm. The right ovary is enlarged measuring overall 7 x 4 x 7 cm. The ovary has a complex appearance. Flow is seen in the ovary. The finding probably reflects a complex cyst. Other etiologies including the potential for neoplastic disease are not entirely excluded. Follow-up imaging should be considered. The appearance of the ovary is not typical of torsion. There is a small amount of free fluid in the pelvis. The left ovary appears unremarkable IMPRESSION: Fibroid uterus. Probable complex cyst associated with the right ovary. Follow-up imaging should be considered.
[2016-03-05 17:31] VITALS: BP 150/90
[2016-03-05] MEDS ORDERED: NAPR500T8 PO (17:35)
[2016-03-05] MEDS ORDERED: HYDR-971 PO (17:35)
== END 2016-03-05 17:40 | disposition home or self-care (01) ==
LOC: ER 15:13
DX: N83.209 Unspecified ovarian cyst, unspecified side (principal); N94.10 Unspecified dyspareunia; E11.9 Type 2 diabetes mellitus without complications; I10 Essential (primary) hypertension; F41.9 Anxiety disorder, unspecified; F12.10 Cannabis abuse, uncomplicated; Z86.73 Personal history of transient ischemic attack (TIA), and cerebral infarction without residual deficits; Z98.890 Other specified postprocedural states; Z88.8 Allergy status to other drugs, medicaments and biological substances; Z88.2 Allergy status to sulfonamides
CPT/HCPCS: 76830; 76856; 81001; 81025; 87491; 87591; 99285; Q0111; Q0162

== ENCOUNTER 2016-07-18 13:11 | Inpatient (IN) | payer SELFPAY ==
[~2016-07-18] VITALS: Ht 162.6 cm; Wt 80.3 kg
[~2016-07-18 13:11] MED LIST changes: +HYDR-971 PO; +METF-620 PO; -METF10002 PO; +NAPR500T8 PO
[2016-07-18] MEDS ORDERED: IV NORMAL SALINE 1000ML BAG 1,000 ML IV SCH (13:26)
--- NOTE | 2016-07-18 13:44 | EKG ---
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 RI6.01 Unconfirmed report Electronically Signed On 07-24-2016 9:20:13 CDT by Alistair Christopher
--- NOTE | 2016-07-18 13:51 | RAD ---
Indication weakness. Protocol study. A single view of the chest was obtained. Comparison is made to an examination 5 months earlier. Heart size is unchanged. The pulmonary vasculature is normal. Lungs are clear. There has not been a significant change compared to the prior study. IMPRESSION: No acute or focal process. No significant change
--- NOTE | 2016-07-18 13:54 | PHYS DOC ---
Past Medical History Past Medical History: Anemia, Anxiety, CVA, Diabetes-Type II, Hypertension Past Surgical History: Alcohol Use: Occasionally Drug Use: Marijuana Adult General Chief Complaint Chief Complaint: NEURO SYMPTOMS/DEFICITS HPI HPI Patient is a 41 year old female who presents with complaint of right-sided weakness. Patient states her symptoms started 2 days ago. Patient has history of type 2 diabetes mellitus and hypertension. Patient states that she has not been taking medications for the past several months and does not have a primary physician at this time. Patient states that she is having residual numbness throughout her right arm and right leg and states that she has been having difficulty with walking due to loss of balance. Patient also notes that she has been having right-sided chest pain which started today. Patient describes her pain as sharp and currently rates it 10 out of 10. Patient states she also started having slurring of speech last night though she says that this has resolved today. Review of Systems Review of Systems Constitutional: Denies fever or chills [] Eyes: Denies change in visual acuity, redness, or eye pain [] HENT: Denies nasal congestion or sore throat [] Respiratory: Denies cough or shortness of breath [] Cardiovascular: Right-sided chest pain [] GI: Denies abdominal pain, nausea, vomiting, bloody stools or diarrhea [] : Denies dysuria or hematuria [] Musculoskeletal: Denies back pain or joint pain [] Integument: Denies rash or skin lesions [] Neurologic: Right-sided numbness and weakness, slurring of speech [] Current Medications Current Medications Current Medications Medications (Trade) Dose Ordered Sig/[facility] Start Time Stop Time Status Last Admin Dose Admin Sodium Chloride 1,000 ml @ 100 mls/hr Q10H 07/18/16 13:26 07/18/16 23:25 07/18/16 13:50 100 MLS/HR Allergies Allergies Allergies Coded Allergies Type Severity Reaction Last Updated Verified Sulfa (Sulfonamide Antibiotics) Allergy Intermediate hives 06/08/15 Yes lisinopril Allergy Intermediate hives 06/08/15 Yes Physical Exam Physical Exam Constitutional: Alert, afebrile, appears in mild to moderate discomfort. [] HENT: Normocephalic, atraumatic, bilateral external ears normal, oropharynx moist, no oral exudates, nose normal. [] Eyes: PERRLA, EOMI, conjunctiva normal, no discharge. [] Neck: Normal range of motion, no tenderness, supple, no stridor. [] Cardiovascular:Heart rate regular rhythm, no murmur [] Lungs & Thorax: Bilateral breath sounds clear to auscultation [] Abdomen: Bowel sounds normal, soft, no tenderness, no masses, no pulsatile masses. [] Skin: Warm, dry, no erythema, no rash. [] Back: No tenderness, no CVA tenderness. [] Extremities: No tenderness, no cyanosis, no clubbing, ROM intact, no edema. [] Neurologic: Alert and oriented X 3, 4 out of 5 strength in right upper and lower extremity, 5 out of 5 strength in left upper and lower extremity, pronator drift and right upper extremity, decreased sensation to light touch in right upper and lower extremity. [] Current Patient Data Vital Signs Vital Signs Date Time Temp Pulse Resp B/P (MAP) Pulse Ox O2 Delivery O2 Flow Rate FiO2 07/18/16 14:15 82 22 177/90 (119) 100 07/18/16 13:51 Room Air 07/18/16 13:20 98.3 98.3 Lab Values Laboratory Tests Test 07/18/16 13:02 07/18/16 13:24 07/18/16 13:50 07/18/16 14:25 POC Urine HCG, Qualitative Hcg negative (Negative) White Blood Count 8.2 x10^3/uL (4.0-11.0) Red Blood Count 3.98 x10^6/uL (3.50-5.40) Hemoglobin 12.1 g/dL (12.0-15.5) Hematocrit 36.3 % (36.0-47.0) Mean Corpuscular Volume 91 fL (79-100) Mean Corpuscular Hemoglobin 31 pg (25-35) Mean Corpuscular Hemoglobin Concent 33 g/dL (31-37) Red Cell Distribution Width 15.7 % (11.5-14.5) H Platelet Count 302 x10^3/uL (140-400) Neutrophils (%) (Auto) 63 % (31-73) Lymphocytes (%) (Auto) 26 % (24-48) Monocytes (%) (Auto) 7 % (0-9) Eosinophils (%) (Auto) 2 % (0-3) Basophils (%) (Auto) 1 % (0-3) Neutrophils # (Auto) 5.2 x10^3uL (1.8-7.7) Lymphocytes # (Auto) 2.2 x10^3/uL (1.0-4.8) Monocytes # (Auto) 0.6 x10^3/uL (0.0-1.1) Eosinophils # (Auto) 0.2 x10^3/uL (0.0-0.7) Basophils # (Auto) 0.1 x10^3/uL (0.0-0.2) Prothrombin Time 13.3 SEC (11.7-14.0) Prothrombin Time INR 1.1 (0.8-1.1) PTT 31 SEC (24-38) Urine Color Yellow Urine Clarity Cloudy Urine pH 6.0 Urine Specific [place] >=1.030 Urine Protein 30 mg/dL (NEG-TRACE) Urine Glucose (UA) >=1000 mg/dL (NEG) Urine Ketones (Stick) Negative mg/dL (NEG) Urine Blood Negative (NEG) Urine Nitrite Negative (NEG) Urine Bilirubin Negative (NEG) Urine Urobilinogen Dipstick 1.0 mg/dL (0.2 mg/dL) Urine Leukocyte Esterase Negative (NEG) Urine RBC 0 /HPF (0-2) Urine WBC 0 /HPF (0-4) Urine Squamous Epithelial Cells Many /LPF Urine Bacteria 0 /HPF (0-FEW) Urine Mucus Mod /LPF Urine Yeast Present /HPF Urine Opiates Screen Neg (NEG) Urine Methadone Screen Neg (NEG) Urine Barbiturates Neg (NEG) Urine Phencyclidine Screen Neg (NEG) Urine Amphetamine/Methamphetamine Neg (NEG) Urine Benzodiazepines Screen Neg (NEG) Urine Cocaine Screen Pos (NEG) Urine Cannabinoids Screen Pos (NEG) Urine Ethyl Alcohol Neg (NEG) Sodium Level 139 mmol/L (136-145) Potassium Level 4.3 mmol/L (3.5-5.1) Chloride Level 104 mmol/L (98-107) Carbon Dioxide Level 25 mmol/L (21-32) Anion Gap 10 (6-14) Blood Urea Nitrogen 11 mg/dL (7-20) Creatinine 0.9 mg/dL (0.6-1.0) Estimated GFR (Cockcroft-Gault) 82.7 BUN/Creatinine Ratio 12 (6-20) Glucose Level 259 mg/dL (70-99) H Calcium Level 8.6 mg/dL (8.5-10.1) Magnesium Level 1.8 mg/dL (1.8-2.4) Total Bilirubin 0.3 mg/dL (0.2-1.0) Aspartate Amino Transferase (AST) 25 U/L (15-37) Alanine Aminotransferase (ALT) 26 U/L (14-59) Alkaline Phosphatase 72 U/L (46-116) Troponin I Quantitative < 0.017 ng/mL (0.000-0.055) Total Protein 7.3 g/dL (6.4-8.2) Albumin 3.5 g/dL (3.4-5.0) Albumin/Globulin Ratio 0.9 (1.0-1.7) L Lipase 205 U/L (73-393) Laboratory Tests 07/18/16 13:24 Laboratory Tests 07/18/16 14:25 EKG EKG Interpreted by me: Heart rate 77, sinus rhythm, normal intervals, normal axis, no acute ST/T-wave abnormalities present [] Radiology/Procedures Radiology/Procedures [place] [id number] IMAGING REPORT Signed PATIENT: MARILU MANCIA ACCOUNT: [id number] : 1975 LOCATION: ER AGE: 41 SEX: F EXAM STATUS: PRE ER ORD. PHYSICIAN: TL SANTIZO MD REASON: weakness, rule out acute cardiopulmonary abnormality PROCEDURE: PORTABLE CHEST 1V Indication weakness. Protocol study. A single view of the chest was obtained. Comparison is made to an examination 5 months earlier. Heart size is unchanged. The pulmonary vasculature is normal. Lungs are clear. There has not been a significant change compared to the prior study. IMPRESSION: No acute or focal process. No significant change DICTATED and SIGNED BY: MYLA KAPADIA MD DATE: 07/18/16 1348 CC: ROSALIA LEVINE MD; TL SANTIZO MD ~ [address] [id number] IMAGING REPORT Signed PATIENT: MARILU MANCIA ACCOUNT: [id number] : 1975 LOCATION: ER AGE: 41 SEX: F EXAM STATUS: REG ER ORD. PHYSICIAN: TL SANTIZO MD REASON: right-sided weakness for 2 days PROCEDURE: CT HEAD WO CONTRAST Indication right-sided weakness for 2 days. Noncontrast images of the head were obtained. Comparison is made to an examination 5 months earlier. No acute or significant calvarial finding is seen. The visualized paranasal sinuses are unremarkable. There is some diminished aeration of mastoid air cells. This is likely chronic and appears similar to the previous exam. There is a small area of parenchymal loss in the left parietal lobe appearing similar to the previous exam. There is a small lucency in the left basal ganglia. This is not readily apparent on the previous exam and an interval small bland lacunar infarct is not excluded. If additional evaluation of the head is warranted an MRI examination could be performed. There is no evidence of hemorrhage. The right cerebral hemisphere appears unremarkable. IMPRESSION: No evidence of hemorrhage. Small lucency in the left basal ganglia, new relative to the previous exam 5 months ago. A small bland area of infarction accounting for the appearance is most likely. PQRS Compliance Statement: One or more of the following individualized dose reduction techniques were utilized for this examination: 1. Automated exposure control 2. Adjustment of the mA and/or kV according to patient size 3. Use of iterative reconstruction technique DICTATED and SIGNED BY: MYLA KAPADIA MD DATE: 07/18/16 1412 CC: ROSALIA LEVINE MD; TL SANTIZO MD ~ [] Course & Med Decision Making Course & Med Decision Making Pertinent Labs and Imaging studies reviewed. (See chart for details) The patient had an NIH score of 4 in the emergency department. The patient's CT scan shows an area of evolving stroke in the left basal ganglia. Given the patient's symptoms present for the past 2 days, the patient is out of the window for any aggressive intervention including TPA or clot retrieval. The patient was started on oral aspirin in the emergency department. I spoke with Dr. Cruz of neurology who agreed with initial plan of care and will consult on patient in hospital. Patient was admitted to Dr. Naqvi. Digna Disclaimer Digna Disclaimer This electronic medical record was generated, in whole or in part, using a voice recognition dictation system. 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
[2016-07-18 14:00] LABS: BASO # 0.1 x10^3/uL (0.0-0.2); BASO % 1 % (0-3); EOS % 2 % (0-3); HEMATOCRIT 36.3 % (36.0-47.0); HEMOGLOBIN 12.1 g/dL (12.0-15.5); LYMPH # 2.2 x10^3/uL (1.0-4.8); LYMPH % 26 % (24-48); MEAN CORPUSCULAR HEMOGLOBIN 31 pg (25-35); MEAN CORPUSCULAR HGB CONC 33 g/dL (31-37); MEAN CORPUSCULAR VOLUME 91 fL (79-100); MONO % 7 % (0-9); NEUT % 63 % (31-73); PLATELET COUNT 302 x10^3/uL (140-400); RED BLOOD COUNT 3.98 x10^6/uL (3.50-5.40); RED CELL DISTRIBUTION WIDTH 15.7 % (11.5-14.5); WHITE BLOOD COUNT 8.2 x10^3/uL (4.0-11.0)
[2016-07-18 14:09] LABS: INR 1.1 (0.8-1.1); PROTHROMBIN TIME PATIENT 13.3 SEC (11.7-14.0)
[2016-07-18 14:10] LABS: BILIRUBIN,URINE NEGATIVE (NEG); GLUCOSE,URINE >=1000 mg/dL (NEG); NITRITE,URINE NEGATIVE (NEG); PROTEIN,URINE 30 mg/dL (NEG-TRACE)
[2016-07-18 14:14] LABS: BARBITURATES NEG (NEG); BENZODIAZEPINES NEG (NEG); CANNABINOIDS POS (NEG); COCAINE POS (NEG); METHADONE NEG (NEG); OPIATES NEG (NEG); PHENCYCLIDINE NEG (NEG)
--- NOTE | 2016-07-18 14:26 | RAD ---
Indication right-sided weakness for 2 days. Noncontrast images of the head were obtained. Comparison is made to an examination 5 months earlier. No acute or significant calvarial finding is seen. The visualized paranasal sinuses are unremarkable. There is some diminished aeration of mastoid air cells. This is likely chronic and appears similar to the previous exam. There is a small area of parenchymal loss in the left parietal lobe appearing similar to the previous exam. There is a small lucency in the left basal ganglia. This is not readily apparent on the previous exam and an interval small bland lacunar infarct is not excluded. If additional evaluation of the head is warranted an MRI examination could be performed. There is no evidence of hemorrhage. The right cerebral hemisphere appears unremarkable. IMPRESSION: No evidence of hemorrhage. Small lucency in the left basal ganglia, new relative to the previous exam 5 months ago. A small bland area of infarction accounting for the appearance is most likely. PQRS Compliance Statement: One or more of the following individualized dose reduction techniques were utilized for this examination: 1. Automated exposure control 2. Adjustment of the mA and/or kV according to patient size 3. Use of iterative reconstruction technique
--- NOTE | 2016-07-18 14:27 | ACF ---
Admit Criteria Forms Admit Criteria Forms Admit Criteria Forms NEUROLOGY [facility] Clinical Indications for Admission to Inpatient Care (Place ' X' for any and all applicable criteria): Hospital admission is needed for appropriate care of the patient because of 1 or more of the following: [ ]I. Encephalitis [ ]II. Severe [employer]FORMATION SYSTEM[employer]JECT [employer]GER infections indicated by 1 or more of the following(1)(2)(3) : [ ]a) Intracranial abscess [ ]b) Spinal abscess or myelitis [ ]c) Tuberculous or other nonbacterial, nonviral [employer]FORMATION [employer]S PROJECT MANAGER infection(8) [ ]III. Vasculitis and 1 or more of the following(14)(15): []a) Altered mental status that is severe or persistent or other acute neurologic change []b) Psychosis []c) Seizure [ ]IV. Status epilepticus or repetitive seizures not controlled with emergent treatment [A] (7)(8) [ ]V. Altered mental status that is severe or persistent [ ]. Transient alteration in consciousness with high-risk etiology; examples include (12)(13): [ ]a) Cardiovascular source [ ]b) Cataplexy [ ]VII. Cerebral aneurysm requiring ANY ONE of the following(14): [ ]a) IV antihypertensives or vasoactive agents [ ]b) Sedation and analgesia for suspected leak [ ]c) Need for external ventricular drainage and cerebral perfusion pressure monitoring [ ]d) Emergent evaluation to determine need for surgical clipping or endovascular coiling by interventional radiology. If surgery is required ( Also use Craniotomy, Supratentorial, for Surgery of Bleeding Intracranial Aneurysm (for bleeding aneurysm) or Craniotomy, Supratentorial (for nonbleeding aneurysm) as appropriate. [X]VIII. New-onset severe neurologic symptom requiring inpatient care indicated by ANY ONE of the following: [ ]a) Aphasia(15) [X]b) Weakness (grade 3 or less) [ ]c) Paralysis (eg, hemiplegia) [ ]d) Spasticity(16) [ ]e) Dystonia [ ]e) Ataxia(17) [ ]f) Amnesia(18) [ ]g) Involuntary movements(19) [ ]h) Vertigo [ ] Visual loss [ ]i) Other severe neurologic finding (eg, papilledema, mass effect on imaging, myoclonus not treatable at alternative level of care (eg, observation care) [ ]IX. Guillain-Victor syndrome(20) [ ]X. Myasthenia gravis crisis or inpatient monitoring need as indicated by 1 or more of the following(21): [ ]a) Intensive treatment (eg, course of plasmapheresis) with inadequate outpatient situation to monitor patients status [ ]b) Inadequate airway protection [ ]c) Respiratory insufficiency requiring intubation or inpatient. monitoring [ ]d) Progressive dysphagia with failure to thrive [ ]XI. Multiple sclerosis or other acute demyelinating disease requiring inpatient care as indicated by 1 or more of the following (22)(23): [ ]a) Acute severe deterioration requiring inpatient treatment (eg, IV steroids, plasmapheresis, close observation) [ ]b) Acute complication requiring inpatient care (eg, sepsis, severe decubitus, aspiration) [ ]XII.Parkinson disease requiring inpatient care (Also use Optimal Recovery Care Criteria or General Recovery Criteria as appropriate) indicated by 1 or more of the following(25): [ ]a) Infection (eg, aspiration pneumonia) not treatable at alternative level of care [ ]b Dehydration that is severe or persistent [ ]c) Life-threatening agitation or psychotic behavior not treatable on emergency, observation care, or alternative level (eg, residential) basis [ ]d) Severe medication withdrawal effects (eg, freezing, neuroleptic malignant syndrome) not responsive to emergency and observation care treatment ( as appropriate) [ ]e) Other severe manifestation not treatable at alternative level of care [ ]XII. Amyotrophic lateral sclerosis with inpatient care needs as indicated by ANY ONE of the following(26): [ ]a) Acute complications (eg, aspiration pneumonia, sepsis ) requiring inpatient care ( see other optimal Recovery Guideline as appropriate) [ ]b) Dehydration that is severe persistent AND artificial support desired [ ]c) Inadequate airway protection AND artificial support desired [ ]d) Severe ventilatory insufficiency AND artificial support desired [ ]XIII. Myasthenia gravis crisis or inpatient monitoring need as indicated by 1 or more of the following(21): [] a) Inadequate airway protection []b) Respiratory insufficiency requiring intubation or inpatient monitoring []c) Progressive dysphagia with failure to thrive []d) Intensive treatment (e.g., course of plasmapheresis) with inadequate outpatient situation to monitor patients status [ ]XIV. Multiple sclerosis or other acute demyelinating disease requiring inpatient care indicated by 1 or more of the following[C](36)(43)(44)(45)(46): []a) Acute severe deterioration requiring inpatient treatment (eg, IV steroids, plasmapheresis, close observation) []b) Acute complication requiring inpatient care (eg, sepsis, severe decubitus, aspiration) [ ]XV. Intracranial hypertension (e.g., pseudotumor cerebri) requiring inpatient care (e.g., acute visual loss, inadequate oral intake) (47)(48)(49) [ ]XVI. Parkinson disease requiring inpatient care (Also use Optimal Recovery Care Criteria or General Recovery Criteria as appropriate) indicated by 1 or more of the following(25): [] a) Infection (e.g., aspiration pneumonia) not treatable at alternative level of care []b) Volume depletion not responsive to emergency and observation care treatment (as appropriate) []c) Life-threatening agitation or psychotic behavior not treatable on emergency, observation care, or alternative level (e.g., residential) basis []d) Severe medication withdrawal effects (e.g., freezing, neuroleptic malignant syndrome) not responsive to emergency and observation care treatment (as appropriate) []e) Other severe manifestation not treatable at alternative level of care [ ]XVII. Amyotrophic lateral sclerosis with inpatient care needs as indicated by1 or more of the following(42): []a) Acute complications (eg, aspiration pneumonia, sepsis) requiring inpatient care (see other Optimal Recovery Guideline or General Recovery Guideline as appropriate) []b) Dehydration that is severe or persistent AND artificial support desired []c) Inadequate airway protection AND artificial support desired []d) Severe ventilatory insufficiency AND artificial support desired [ ]XVIII. Severe myopathy, neuropathy, or other neuromuscular disease indicated by 1 or more of the following(42)(52)(53)(54): []a ) New-onset severe diffuse weakness (eg, strength 3/5 or less) []b) Severe dysphagia []c) Dyspnea at rest or with minimal exertion (new) []d) Inadequate airway protection []e) Inadequate ventilation indicated by 1 or more of the following : i) Partial pressure of carbon dioxide greater than 44 mm Hg ( 5.9 kPa) (new) ii) Reduced peak expiratory flow rate (new) iii) Vital capacity less than 50% of predicted (less than 15 mL/kg) iv) Peak inspiratory force less negative than -30 cm H2O (- 2942 Pa) [ ]XVII.Complications of congenital or degenerative disease (eg, infection, seizures, dehydration, injury) not responsive to emergency and observation care treatment (as appropriate ) [C](16)(29)(30) [ ]XVIII.Suspected or confirmed nerve or muscle toxic injury, including ANY ONE of the following: [ ]a) Rhabdomyolysis(31) i) Acute renal failure ii) Dehydration that is severe or persistent iii) Altered mental status that is severe or persistent iv) Electrolyte abnormality that remains after emergency or observation level care ( as appropriate) [ ]b) Botulism(32) [ ]c) Other severe toxin-induced sign or symptom [ ]XIX. Neurologic trauma requiring inpatient treatment (medical) indicated by ANY ONE of the following(33)(34): [ ]a) Vital signs or neurologic signs more frequently than every 4 hours [ ]b) Hyperosmolar therapy [ ]c) Respiratory monitoring [ ]d) Intracranial pressure monitoring and treatment [ ]e) Stabilization and immobilization device placement (eg, braces, body jacket) [ ]f) Intubation & mechanical ventilation for airway protection or therapeutic hyperventilation [ ]g) Other treatment or monitoring needed that requires inpatient level of care [ ]XX.Complications of neurologic devices (eg, ventricular shunt, neurostimulator) requiring 1 or more of the following(35)(36): [ ]a) IV antibiotics with monitoring while awaiting culture results [ ]b) Monitoring for hydrocephalus [ ]XXI. Neurology condition symptom, or finding for which emergency and observation care have failed or are not considered appropriate. See General Criteria: Observation Care ISC, General Admission Criteria GRG, or Pediatric General Admission Criteria [facility] guideline as appropriate. The original [employer] content created by [employer] has been revised. The portions of the content which have been revised are identified through the use of italic text or in bold, and [facility] has neither reviewed nor approved the modified material. All other unmodified content is copyright [facility] Original Please see references footnoted in the original [facility] edition 2016 PADMINI VORA Jul 18, 2016 14:27
[2016-07-18 14:30] LABS: BACTERIA,URINE 0 /HPF (0-FEW); RBC,URINE 0 /HPF (0-2); SQUAMOUS EPITHELIAL CELL,UR MANY /LPF; WBC,URINE 0 /HPF (0-4)
[2016-07-18 14:31] LABS: YEAST,URINE PRESENT /HPF
[2016-07-18] MEDS: ASPIRIN 325 MG TABLET PO ONE ×2 (14:45→15:24)
[2016-07-18 14:52] LABS: ALBUMIN 3.5 g/dL (3.4-5.0); ALBUMIN/GLOBULIN RATIO 0.9 (1.0-1.7); CALCIUM 8.6 mg/dL (8.5-10.1); CREATININE 0.9 mg/dL (0.6-1.0); GFR 82.7; MAGNESIUM 1.8 mg/dL (1.8-2.4); POTASSIUM 4.3 mmol/L (3.5-5.1); TOTAL BILIRUBIN 0.3 mg/dL (0.2-1.0); TOTAL PROTEIN 7.3 g/dL (6.4-8.2)
[2016-07-18] MEDS: IV NORMAL SALINE 1000ML BAG 1,000 ML IV SCH ×3 (14:59→22:59)
[2016-07-18] MEDS ORDERED: ONDANSETRON PF 4 MG/2 ML VIAL. IV PRN (15:00)
[2016-07-18] MEDS ORDERED: ACETAMINOPHEN 325 MG TABLET. PO PRN ×2 (15:00→15:15)
[2016-07-18] MEDS ORDERED: fentaNYL PF VIAL 100 MCG/2 ML VIAL IV PRN (15:00)
[2016-07-18] MEDS ORDERED: ACETAMINOPHEN 650 MG SUPP.RECT. PR PRN (15:15)
[2016-07-18] MEDS ORDERED: LABETALOL 20 MG/4 ML DISP.SYRIN. IV PRN (15:15)
[2016-07-18] MEDS ORDERED: 0.9 % SODIUM CHLORIDE 10 ML DISP.SYRIN. IV PRN (15:15)
--- NOTE | 2016-07-18 15:18 | PDOC2 ---
NEUROLOGY CONSULT Date of Admission Date of Admission DATE: 07/18/16 TIME: 15:13 Reason for Consult Reason for Consult: Stroke Referring Physician Referring Physician: Dr. Naqvi Source Source: Chart review, Patient History of Present Illness History of Present Illness The patient is a 41-year-old right-handed female presenting with right hemiparesis for the past 2 days of acute onset. She has hypertension and diabetes but has been noncompliant for the last several months. She also recently used cocaine. There is no prior history of seizure or head injury but she did have 2 strokes in the past from which she made a full recovery. She was at for them Past Medical History Cardiovascular: HTN CENTRAL NERVOUS SYSTEM: CVA Heme/Onc: Anemia NOS Psych: Anxiety, Depression Renal/: Other (uterine fibroid) Endocrine: Diabetes Past Surgical History Past Surgical History: Family History Family History: No pertinent hx Social History Social History Unemployed, trying for disability, occasional cocaine, tobacco, alcohol; marijuana daily, Current Medications Current Medications Current Medications Sodium Chloride 1,000 ml @ 100 mls/hr Q10H IV Last administered on 07/18/16t 13 :50; Start 07/18/16 at 13:26; Stop 07/18/16 at 23:25 Aspirin (Yenifer Aspirin) 325 mg 1X ONCE PO ; Start 07/18/16 at 14:45; Stop at 14:49; Status DC Ondansetron HCl (Zofran) 4 mg PRN Q8HRS PRN IV NAUSEA/VOMITING; Start 07/18/16 at 15:00; Stop 07/19/16 at 14:59 Fentanyl Citrate (Fentanyl 2ml Vial) 50 mcg PRN Q2HR PRN IV PAIN; Start at 15:00; Stop 07/19/16 at 14:59 Sodium Chloride 1,000 ml @ 125 mls/hr Q8H IV ; Start 07/18/16 at 14:59; Stop 07/19/16 at 14:58 Acetaminophen (Tylenol) 650 mg PRN Q4HRS PRN PO FEVER; Start 07/18/16 at 15:00; Stop 07/19/16 at 14:59 Aspirin (Yenifer Aspirin) 325 mg DAILYWBKFT PO ; Start 07/19/16 at 08:00 Amlodipine Besylate (Norvasc) 10 mg DAILY PO ; Start 07/19/16 at 09:00; Status UNV Aspirin (Children'S Aspirin) 81 mg DAILY PO ; Start 07/19/16 at 09:00; Status UNV Carvedilol (Coreg) 12.5 mg BIDWMEALS PO ; Start 07/18/16 at 17:00; Status UNV Clopidogrel Bisulfate (Plavix) 75 mg DAILYWBKFT PO ; Start 07/19/16 at 08:00; Status UNV Ferrous Sulfate (Feosol) 325 mg DAILY PO ; Start 07/19/16 at 09:00; Status UNV Fluticasone Propionate (Flonase) 2 spray DAILY NS ; Start 07/19/16 at 09:00; Status UNV Hydralazine HCl (Apresoline) 25 mg TID PO ; Start 07/18/16 at 21:00; Status UNV Acetaminophen/ Hydrocodone Bitart (Lortab 5/325) 1 tab PRN Q6HRS PRN PO PAIN; Start 07/18/16 at 15:15; Status UNV Isosorbide Mononitrate (Imdur) 30 mg DAILY PO ; Start 07/19/16 at 09:00; Status UNV Metformin HCl (Glucophage) 1,000 mg BID PO ; Start 07/18/16 at 21:00; Status UNV Pantoprazole Sodium (Protonix) 40 mg DAILYAC PO ; Start 07/19/16 at 07:30; Status UNV Non-Formulary Medication 40 mg DAILY PO ; Start 07/19/16 at 09:00; Status UNV Active Scripts Active Naproxen 500 Mg Tablet.dr 1 Tab PO BID Austin 5-325 Tablet (Acetaminophen/Hydrocodone Bitart) 1 Each Tablet 1-2 Tab PO Q4-6HRS Isosorbide Mononitrate Er (Isosorbide Mononitrate) 30 Mg Tab.er.24h 30 Mg PO DAILY Hydralazine Hcl 25 Mg Tablet 25 Mg PO TID Fluticasone Propionate Nasal Overton (Fluticasone Propionate) 16 Gm Overton.susp 2 Overton NS DAILY Amlodipine Besylate 5 Mg Tablet 10 Mg PO DAILY Pantoprazole Sodium 40 Mg Tablet.dr 40 Mg PO DAILYAC Coreg (Carvedilol) 12.5 Mg Tablet 12.5 Mg PO BIDWMEALS Lovastatin 40 Mg Tablet 40 Mg PO DAILY Metformin Hcl 1,000 Mg Tablet 1,000 Mg PO BID Clopidogrel (Clopidogrel Bisulfate) 75 Mg Tablet 75 Mg PO DAILYWBKFT Reported [depression pill] 1 Tab PO DAILY Iron Supplement (Ferrous Sulfate) 325 Mg Tablet 1 Tab PO DAILY Aspirin 81 Mg Tab.chew 1 Tab PO DAILY Allergies Allergies: Coded Allergies: Sulfa (Sulfonamide Antibiotics) (Verified Allergy, Intermediate, hives, ) lisinopril (Verified Allergy, Intermediate, hives, 06/08/15) ROS Review of System Patient denies fevers, chills, weight loss, dyspnea, angina, abdominal pain, change in bowels, or dysuria. 14 point review of systems is negative. Physical Exam Physical Examination PHYSICAL EXAMINATION: Vital signs: see above. General appearance is normal and in no acute distress. HEENT: Normocephalic and nontraumatic. Eyes, nose, ears, and throat are unremarkable. Neck is supple. No lymphadenopathy. No bruits are heard over the carotid artery. No crepitus. NEUROLOGICAL EXAMINATION: Mental Status Examination: Alert. Oriented to time, place, and person. Answers questions and follows commends. Pupils are equal round and reactive to light and accommodation. Funduscopic exam: No papilledema. Extraocular movements are intact. Visual field exam shows no defect on the direct confrontation. No motor or sensory deficits on the facial exam. Uvula in the midline and the soft palate elevated symmetrically. No deviation of the tongue to any direction. Gross hearing is normal. Shoulder shrug normal. Muscle tone is normal. Muscle strength is 4/5 on right, 5/5 on left. Deep tendon reflexes are 2+ all around. Plantar reflex is with flexion response bilaterally. Finger -to-nose test performance is accurate. Alternative movements are accurate. Gait not tested. Sensory exam shows no deficits. No cerebellar signs are elicited. Vitals VITALS Vital Signs Date Time Temp Pulse Resp B/P (MAP) Pulse Ox O2 Delivery O2 Flow Rate FiO2 07/18/16 14:45 72 27 188/88 (121) 99 07/18/16 13:51 Room Air 07/18/16 13:20 98.3 98.3 Labs Labs Laboratory Tests Test 07/18/16 13:02 07/18/16 13:24 07/18/16 13:50 07/18/16 14:25 Bedside Urine HCG, Qualitative Hcg negative (Negative) White Blood Count 8.2 x10^3/uL (4.0-11.0) Red Blood Count 3.98 x10^6/uL (3.50-5.40) Hemoglobin 12.1 g/dL (12.0-15.5) Hematocrit 36.3 % (36.0-47.0) Mean Corpuscular Volume 91 fL (79-100) Mean Corpuscular Hemoglobin 31 pg (25-35) Mean Corpuscular Hemoglobin Concent 33 g/dL (31-37) Red Cell Distribution Width 15.7 % (11.5-14.5) Platelet Count 302 x10^3/uL (140-400) Neutrophils (%) (Auto) 63 % (31-73) Lymphocytes (%) (Auto) 26 % (24-48) Monocytes (%) (Auto) 7 % (0-9) Eosinophils (%) (Auto) 2 % (0-3) Basophils (%) (Auto) 1 % (0-3) Neutrophils # (Auto) 5.2 x10^3uL (1.8-7.7) Lymphocytes # (Auto) 2.2 x10^3/uL (1.0-4.8) Monocytes # (Auto) 0.6 x10^3/uL (0.0-1.1) Eosinophils # (Auto) 0.2 x10^3/uL (0.0-0.7) Basophils # (Auto) 0.1 x10^3/uL (0.0-0.2) Prothrombin Time 13.3 SEC (11.7-14.0) Prothromb Time International Ratio 1.1 (0.8-1.1) Activated Partial Thromboplast Time 31 SEC (24-38) Urine Color Yellow Urine Clarity Cloudy Urine pH 6.0 Urine Specific [place] >=1.030 Urine Protein 30 mg/dL (NEG-TRACE) Urine Glucose (UA) >=1000 mg/dL (NEG) Urine Ketones (Stick) Negative mg/dL (NEG) Urine Blood Negative (NEG) Urine Nitrite Negative (NEG) Urine Bilirubin Negative (NEG) Urine Urobilinogen Dipstick 1.0 mg/dL (0.2 mg/dL) Urine Leukocyte Esterase Negative (NEG) Urine RBC 0 /HPF (0-2) Urine WBC 0 /HPF (0-4) Urine Squamous Epithelial Cells Many /LPF Urine Bacteria 0 /HPF (0-FEW) Urine Mucus Mod /LPF Urine Yeast Present /HPF Urine Opiates Screen Neg (NEG) Urine Methadone Screen Neg (NEG) Urine Barbiturates Neg (NEG) Urine Phencyclidine Screen Neg (NEG) Urine Amphetamine/Methamphetamine Neg (NEG) Urine Benzodiazepines Screen Neg (NEG) Urine Cocaine Screen Pos (NEG) Urine Cannabinoids Screen Pos (NEG) Urine Ethyl Alcohol Neg (NEG) Sodium Level 139 mmol/L (136-145) Potassium Level 4.3 mmol/L (3.5-5.1) Chloride Level 104 mmol/L (98-107) Carbon Dioxide Level 25 mmol/L (21-32) Anion Gap 10 (6-14) Blood Urea Nitrogen 11 mg/dL (7-20) Creatinine 0.9 mg/dL (0.6-1.0) Estimated GFR (Cockcroft-Gault) 82.7 BUN/Creatinine Ratio 12 (6-20) Glucose Level 259 mg/dL (70-99) Calcium Level 8.6 mg/dL (8.5-10.1) Magnesium Level 1.8 mg/dL (1.8-2.4) Total Bilirubin 0.3 mg/dL (0.2-1.0) Aspartate Amino Transf (AST/SGOT) 25 U/L (15-37) Alanine Aminotransferase (ALT/SGPT) 26 U/L (14-59) Alkaline Phosphatase 72 U/L (46-116) Troponin I Quantitative < 0.017 ng/mL (0.000-0.055) Total Protein 7.3 g/dL (6.4-8.2) Albumin 3.5 g/dL (3.4-5.0) Albumin/Globulin Ratio 0.9 (1.0-1.7) Lipase 205 U/L (73-393) Laboratory Tests Test 07/18/16 13:02 07/18/16 13:24 07/18/16 13:50 07/18/16 14:25 Bedside Urine HCG, Qualitative Hcg negative (Negative) White Blood Count 8.2 x10^3/uL (4.0-11.0) Red Blood Count 3.98 x10^6/uL (3.50-5.40) Hemoglobin 12.1 g/dL (12.0-15.5) Hematocrit 36.3 % (36.0-47.0) Mean Corpuscular Volume 91 fL (79-100) Mean Corpuscular Hemoglobin 31 pg (25-35) Mean Corpuscular Hemoglobin Concent 33 g/dL (31-37) Red Cell Distribution Width 15.7 % (11.5-14.5) Platelet Count 302 x10^3/uL (140-400) Neutrophils (%) (Auto) 63 % (31-73) Lymphocytes (%) (Auto) 26 % (24-48) Monocytes (%) (Auto) 7 % (0-9) Eosinophils (%) (Auto) 2 % (0-3) Basophils (%) (Auto) 1 % (0-3) Neutrophils # (Auto) 5.2 x10^3uL (1.8-7.7) Lymphocytes # (Auto) 2.2 x10^3/uL (1.0-4.8) Monocytes # (Auto) 0.6 x10^3/uL (0.0-1.1) Eosinophils # (Auto) 0.2 x10^3/uL (0.0-0.7) Basophils # (Auto) 0.1 x10^3/uL (0.0-0.2) Prothrombin Time 13.3 SEC (11.7-14.0) Prothromb Time International Ratio 1.1 (0.8-1.1) Activated Partial Thromboplast Time 31 SEC (24-38) Urine Color Yellow Urine Clarity Cloudy Urine pH 6.0 Urine Specific [place] >=1.030 Urine Protein 30 mg/dL (NEG-TRACE) Urine Glucose (UA) >=1000 mg/dL (NEG) Urine Ketones (Stick) Negative mg/dL (NEG) Urine Blood Negative (NEG) Urine Nitrite Negative (NEG) Urine Bilirubin Negative (NEG) Urine Urobilinogen Dipstick 1.0 mg/dL (0.2 mg/dL) Urine Leukocyte Esterase Negative (NEG) Urine RBC 0 /HPF (0-2) Urine WBC 0 /HPF (0-4) Urine Squamous Epithelial Cells Many /LPF Urine Bacteria 0 /HPF (0-FEW) Urine Mucus Mod /LPF Urine Yeast Present /HPF Urine Opiates Screen Neg (NEG) Urine Methadone Screen Neg (NEG) Urine Barbiturates Neg (NEG) Urine Phencyclidine Screen Neg (NEG) Urine Amphetamine/Methamphetamine Neg (NEG) Urine Benzodiazepines Screen Neg (NEG) Urine Cocaine Screen Pos (NEG) Urine Cannabinoids Screen Pos (NEG) Urine Ethyl Alcohol Neg (NEG) Sodium Level 139 mmol/L (136-145) Potassium Level 4.3 mmol/L (3.5-5.1) Chloride Level 104 mmol/L (98-107) Carbon Dioxide Level 25 mmol/L (21-32) Anion Gap 10 (6-14) Blood Urea Nitrogen 11 mg/dL (7-20) Creatinine 0.9 mg/dL (0.6-1.0) Estimated GFR (Cockcroft-Gault) 82.7 BUN/Creatinine Ratio 12 (6-20) Glucose Level 259 mg/dL (70-99) Calcium Level 8.6 mg/dL (8.5-10.1) Magnesium Level 1.8 mg/dL (1.8-2.4) Total Bilirubin 0.3 mg/dL (0.2-1.0) Aspartate Amino Transf (AST/SGOT) 25 U/L (15-37) Alanine Aminotransferase (ALT/SGPT) 26 U/L (14-59) Alkaline Phosphatase 72 U/L (46-116) Troponin I Quantitative < 0.017 ng/mL (0.000-0.055) Total Protein 7.3 g/dL (6.4-8.2) Albumin 3.5 g/dL (3.4-5.0) Albumin/Globulin Ratio 0.9 (1.0-1.7) Lipase 205 U/L (73-393) Images Images CT head: No acute or significant calvarial finding is seen. The visualized paranasal sinuses are unremarkable. There is some diminished aeration of mastoid air cells. This is likely chronic and appears similar to the previous exam. There is a small area of parenchymal loss in the left parietal lobe appearing similar to the previous exam. There is a small lucency in the left basal ganglia. This is not readily apparent on the previous exam and an interval small bland lacunar infarct is not excluded. If additional evaluation of the head is warranted an MRI examination could be performed. There is no evidence of hemorrhage. The right cerebral hemisphere appears unremarkable. IMPRESSION: No evidence of hemorrhage. Small lucency in the left basal ganglia, new relative to the previous exam 5 months ago. A small bland area of infarction accounting for the appearance is most likely. Assessment/Plan Assessment/Plan Impression: Left base of ganglia lacunar stroke already apparent on the head CT related to her known hypertension and diabetes Recommendations: Blood pressure and diabetic control Statin Rehabilitation modalities Aspirin Carotid Dopplers Echocardiogram Thank you for letting me help with the patient's care. CAT DORADO MD Jul 18, 2016 15:18
--- NOTE | 2016-07-18 15:23 | PDOC1 ---
History and Physical Date of Admission Date of Admission 07/18/16 Identification/Chief Complaint Chief Complaint right side weakness Problems: Source Source: Chart review, Patient History of Present Illness History of Present Illness HPI HPI Patient is a 41 year old female with h/o CVA wo neurologic deficit, MO with 3 stents last time 07/2015, smoking, presents with complaint of right-sided weakness FOR 1 week. Pt is currently off insurance, not taking meds or fu PCP for 2 months. Crying. She said she started to feel right side upper and lower ext weakness 1 week ago , worse for 2 days, with slurry speech this am, now better. NO headache, vision , or hearing change. has difficulty to walk now. Pt has non productive cough, smoking, left side lower chest pain intermittent for a few days. No fever, chills, N/V. has lower abd pain, chronic , with fibroids. Head CT neg. Past Medical History Cardiovascular: CAD, HTN, Hyperlipidemia Pulmonary: No pertinent hx CENTRAL NERVOUS SYSTEM: CVA, TIA GI: No pertinent hx Heme/Onc: Anemia NOS Hepatobiliary: No pertinent hx Psych: Anxiety Rheumatologic: No pertinent hx Infectious disease: No pertinent hx Renal/: Other Endocrine: Diabetes Past Surgical History Past Surgical History: , Other Family History Family History: Diabetes Social History Smoke: <1 pack per day ALCOHOL: occassional Drugs: Cocaine, Marijuana Current Problem List Problem List Problems Medical Problems: (1) Acute CVA (cerebrovascular accident) Status: Acute Current Medications Current Medications Current Medications Medications (Trade) Dose Ordered Sig/Payton Start Time Stop Time Status Last Admin Dose Admin Acetaminophen (Tylenol) 650 mg PRN Q4HRS PRN 07/18/16 15:00 07/19/16 14:59 Aspirin (Yenifer Aspirin) 325 mg DAILYWBKFT 07/19/16 08:00 Fentanyl Citrate (Fentanyl 2ml Vial) 50 mcg PRN Q2HR PRN 07/18/16 15:00 07/19/16 14:59 Ondansetron HCl (Zofran) 4 mg PRN Q8HRS PRN 07/18/16 15:00 07/19/16 14:59 Sodium Chloride 1,000 ml @ 125 mls/hr Q8H 07/18/16 14:59 07/19/16 14:58 Allergies Allergies Allergies Coded Allergies Type Severity Reaction Last Updated Verified Sulfa (Sulfonamide Antibiotics) Allergy Intermediate hives 06/08/15 Yes lisinopril Allergy Intermediate hives 06/08/15 Yes ROS Review of System CONSTITUTIONAL: No fever or chills EYES: No recent changes SKIN: No rash or itching CARDIOVASCULAR: No chest pain, syncope, palpitations, or edema RESPIRATORY: No SOB or cough GASTROINTESTINAL: No nausea, vomiting or abdominal pain NEUROLOGICAL: No headaches or weakness ENDOCRINE: No cold or heat intolerance GENITOURINARY: No urgency or frequency of urination MUSCULOSKELETAL: No back pain or joint pain LYMPHATICS: No enlarged lymph nodes PSYCHIATRIC: No anxiety or depression Physical Exam Physical Exam GEN.: crying. Alert and oriented. HEENT: Head is normocephalic, atraumatic NECK: Supple. LUNGS: bl decreased bs. left lower chest wall mild tenderness. HEART: RRR, S1, S2 present. Peripheral pulses intact ABDOMEN: Soft, nontender. Positive bowel sounds. EXTREMITIES: Without any cyanosis. mild right side facial droop, right side sensation decreased, strength right arm 4/5, leg 2/5. left side normal. NEUROLOGIC: Normal speech, normal tone PSYCHIATRIC: Normal affect, normal mood. SKIN: No ulcerations Vitals Vitals Vital Signs Date Time Temp Pulse Resp B/P (MAP) Pulse Ox O2 Delivery O2 Flow Rate FiO2 07/18/16 14:45 72 27 188/88 (121) 99 07/18/16 13:51 Room Air 07/18/16 13:20 98.3 98.3 Labs Labs Laboratory Tests Test 07/18/16 13:02 07/18/16 13:24 07/18/16 13:50 07/18/16 14:25 Bedside Urine HCG, Qualitative Hcg negative (Negative) White Blood Count 8.2 x10^3/uL (4.0-11.0) Red Blood Count 3.98 x10^6/uL (3.50-5.40) Hemoglobin 12.1 g/dL (12.0-15.5) Hematocrit 36.3 % (36.0-47.0) Mean Corpuscular Volume 91 fL (79-100) Mean Corpuscular Hemoglobin 31 pg (25-35) Mean Corpuscular Hemoglobin Concent 33 g/dL (31-37) Red Cell Distribution Width 15.7 % (11.5-14.5) Platelet Count 302 x10^3/uL (140-400) Neutrophils (%) (Auto) 63 % (31-73) Lymphocytes (%) (Auto) 26 % (24-48) Monocytes (%) (Auto) 7 % (0-9) Eosinophils (%) (Auto) 2 % (0-3) Basophils (%) (Auto) 1 % (0-3) Neutrophils # (Auto) 5.2 x10^3uL (1.8-7.7) Lymphocytes # (Auto) 2.2 x10^3/uL (1.0-4.8) Monocytes # (Auto) 0.6 x10^3/uL (0.0-1.1) Eosinophils # (Auto) 0.2 x10^3/uL (0.0-0.7) Basophils # (Auto) 0.1 x10^3/uL (0.0-0.2) Prothrombin Time 13.3 SEC (11.7-14.0) Prothromb Time International Ratio 1.1 (0.8-1.1) Activated Partial Thromboplast Time 31 SEC (24-38) Urine Color Yellow Urine Clarity Cloudy Urine pH 6.0 Urine Specific [place] >=1.030 Urine Protein 30 mg/dL (NEG-TRACE) Urine Glucose (UA) >=1000 mg/dL (NEG) Urine Ketones (Stick) Negative mg/dL (NEG) Urine Blood Negative (NEG) Urine Nitrite Negative (NEG) Urine Bilirubin Negative (NEG) Urine Urobilinogen Dipstick 1.0 mg/dL (0.2 mg/dL) Urine Leukocyte Esterase Negative (NEG) Urine RBC 0 /HPF (0-2) Urine WBC 0 /HPF (0-4) Urine Squamous Epithelial Cells Many /LPF Urine Bacteria 0 /HPF (0-FEW) Urine Mucus Mod /LPF Urine Yeast Present /HPF Urine Opiates Screen Neg (NEG) Urine Methadone Screen Neg (NEG) Urine Barbiturates Neg (NEG) Urine Phencyclidine Screen Neg (NEG) Urine Amphetamine/Methamphetamine Neg (NEG) Urine Benzodiazepines Screen Neg (NEG) Urine Cocaine Screen Pos (NEG) Urine Cannabinoids Screen Pos (NEG) Urine Ethyl Alcohol Neg (NEG) Sodium Level 139 mmol/L (136-145) Potassium Level 4.3 mmol/L (3.5-5.1) Chloride Level 104 mmol/L (98-107) Carbon Dioxide Level 25 mmol/L (21-32) Anion Gap 10 (6-14) Blood Urea Nitrogen 11 mg/dL (7-20) Creatinine 0.9 mg/dL (0.6-1.0) Estimated GFR (Cockcroft-Gault) 82.7 BUN/Creatinine Ratio 12 (6-20) Glucose Level 259 mg/dL (70-99) Calcium Level 8.6 mg/dL (8.5-10.1) Magnesium Level 1.8 mg/dL (1.8-2.4) Total Bilirubin 0.3 mg/dL (0.2-1.0) Aspartate Amino Transf (AST/SGOT) 25 U/L (15-37) Alanine Aminotransferase (ALT/SGPT) 26 U/L (14-59) Alkaline Phosphatase 72 U/L (46-116) Troponin I Quantitative < 0.017 ng/mL (0.000-0.055) Total Protein 7.3 g/dL (6.4-8.2) Albumin 3.5 g/dL (3.4-5.0) Albumin/Globulin Ratio 0.9 (1.0-1.7) Lipase 205 U/L (73-393) Laboratory Tests Test 07/18/16 13:02 07/18/16 13:24 07/18/16 13:50 07/18/16 14:25 Bedside Urine HCG, Qualitative Hcg negative (Negative) White Blood Count 8.2 x10^3/uL (4.0-11.0) Red Blood Count 3.98 x10^6/uL (3.50-5.40) Hemoglobin 12.1 g/dL (12.0-15.5) Hematocrit 36.3 % (36.0-47.0) Mean Corpuscular Volume 91 fL (79-100) Mean Corpuscular Hemoglobin 31 pg (25-35) Mean Corpuscular Hemoglobin Concent 33 g/dL (31-37) Red Cell Distribution Width 15.7 % (11.5-14.5) Platelet Count 302 x10^3/uL (140-400) Neutrophils (%) (Auto) 63 % (31-73) Lymphocytes (%) (Auto) 26 % (24-48) Monocytes (%) (Auto) 7 % (0-9) Eosinophils (%) (Auto) 2 % (0-3) Basophils (%) (Auto) 1 % (0-3) Neutrophils # (Auto) 5.2 x10^3uL (1.8-7.7) Lymphocytes # (Auto) 2.2 x10^3/uL (1.0-4.8) Monocytes # (Auto) 0.6 x10^3/uL (0.0-1.1) Eosinophils # (Auto) 0.2 x10^3/uL (0.0-0.7) Basophils # (Auto) 0.1 x10^3/uL (0.0-0.2) Prothrombin Time 13.3 SEC (11.7-14.0) Prothromb Time International Ratio 1.1 (0.8-1.1) Activated Partial Thromboplast Time 31 SEC (24-38) Urine Color Yellow Urine Clarity Cloudy Urine pH 6.0 Urine Specific [place] >=1.030 Urine Protein 30 mg/dL (NEG-TRACE) Urine Glucose (UA) >=1000 mg/dL (NEG) Urine Ketones (Stick) Negative mg/dL (NEG) Urine Blood Negative (NEG) Urine Nitrite Negative (NEG) Urine Bilirubin Negative (NEG) Urine Urobilinogen Dipstick 1.0 mg/dL (0.2 mg/dL) Urine Leukocyte Esterase Negative (NEG) Urine RBC 0 /HPF (0-2) Urine WBC 0 /HPF (0-4) Urine Squamous Epithelial Cells Many /LPF Urine Bacteria 0 /HPF (0-FEW) Urine Mucus Mod /LPF Urine Yeast Present /HPF Urine Opiates Screen Neg (NEG) Urine Methadone Screen Neg (NEG) Urine Barbiturates Neg (NEG) Urine Phencyclidine Screen Neg (NEG) Urine Amphetamine/Methamphetamine Neg (NEG) Urine Benzodiazepines Screen Neg (NEG) Urine Cocaine Screen Pos (NEG) Urine Cannabinoids Screen Pos (NEG) Urine Ethyl Alcohol Neg (NEG) Sodium Level 139 mmol/L (136-145) Potassium Level 4.3 mmol/L (3.5-5.1) Chloride Level 104 mmol/L (98-107) Carbon Dioxide Level 25 mmol/L (21-32) Anion Gap 10 (6-14) Blood Urea Nitrogen 11 mg/dL (7-20) Creatinine 0.9 mg/dL (0.6-1.0) Estimated GFR (Cockcroft-Gault) 82.7 BUN/Creatinine Ratio 12 (6-20) Glucose Level 259 mg/dL (70-99) Calcium Level 8.6 mg/dL (8.5-10.1) Magnesium Level 1.8 mg/dL (1.8-2.4) Total Bilirubin 0.3 mg/dL (0.2-1.0) Aspartate Amino Transf (AST/SGOT) 25 U/L (15-37) Alanine Aminotransferase (ALT/SGPT) 26 U/L (14-59) Alkaline Phosphatase 72 U/L (46-116) Troponin I Quantitative < 0.017 ng/mL (0.000-0.055) Total Protein 7.3 g/dL (6.4-8.2) Albumin 3.5 g/dL (3.4-5.0) Albumin/Globulin Ratio 0.9 (1.0-1.7) Lipase 205 U/L (73-393) VTE Prophylaxis Ordered VTE Prophylaxis Devices: Yes VTE Pharmacological Prophylaxi: Yes Assessment/Plan Assessment/Plan 1. acute stroke, ischemic likely. right side weakness 2. HTN urgency 3. uncompliance wo insurance 4. h/o CVA wo deficit 5. h/o CAD with PCI 3 stents 6. dm2 7. obesity 8. drug abuse with marijuana daily, denies cocaine, but + in urine tox plan: fu with Neuro allow BP high for tonight, till >200/110 cont home meds on ASA 325mg daily as per neuro, cont plavix mri brain, echo, carotid US dvt ppx PTOT SW for medicaid and clinic referral check hba1c, lipid panel. SSI ALBUTERol prn admit >2 nights TREE DUARTE MD Jul 18, 2016 15:23
[2016-07-18] MEDS ORDERED: ALBUTEROL SULFATE 2.5 MG/3 ML NEBU. NEB PRN (15:30)
[2016-07-18] MEDS ORDERED: hydrALAZINE 20 MG/ML VIAL. IVP PRN (15:30)
[2016-07-18] MEDS ORDERED: DEXTROSE 50% 25 GM / 50ML DISP.SYRIN. IV PRN (15:30)
[2016-07-18] MEDS: hydrALAZINE 25 MG TABLET PO SCH ×2 (16:00→21:00)
[2016-07-18] MEDS: ASPIRIN CHEWABLE 81 MG TABLET. PO SCH (16:00)
[2016-07-18] MEDS: ISOSORBIDE MONONITRATE ER 30 MG TAB.ER.24H PO SCH (16:00)
[2016-07-18] MEDS: amLODIPine BESYLATE 10 MG TABLET PO SCH (16:00)
--- NOTE | 2016-07-18 16:21 | RAD ---
Indication CVA. Grayscale color Doppler and spectral analysis was performed. Examination was targeted to the carotid bifurcations. On the right significant plaquing is not seen. The color Doppler images do not suggest significant turbulence. The common carotid waveform and velocities are normal. The external carotid has a normal appearance. The internal carotid waveform and velocities are also normal. The vertebral is patent and demonstrates normal directional flow. On the left there is no significant plaquing. The color Doppler images do not suggest significant turbulence. The common carotid waveform and velocities are normal. The external carotid has a normal appearance. The internal carotid waveform and velocities are normal. The vertebral is patent and demonstrates normal directional flow. IMPRESSION: No evidence of hemodynamically significant stenosis at either carotid bifurcation. Stenosis 0-50%. Note: Stenosis calculations for CT, MR and conventional angiography are based upon determination of the distal ICA diameter in accordance with the NASCET methodology. Stenosis calculations for doppler studies are derived from validated velocity criteria which are known to correlate with NASCET methodology of determining stenosis.
--- NOTE | 2016-07-18 16:45 | RAD ---
EXAM: Brain MRI without contrast. HISTORY: Right side numbness and speech difficulty. TECHNIQUE: Multiplanar, multisequence magnetic resonance imaging of the brain was performed without contrast. COMPARISON: Head CT obtained on the same date. FINDINGS: There are multiple there are 6 foci of restricted diffusion within the bilateral cerebral and cerebellar hemispheres. These are located within the posterior lateral right frontal lobe, the right caudate nucleus, the junction of the left thalamus and internal capsule, left parieto-occipital junction and the right cerebellum and possibly left cerebellum. These are consistent with acute or subacute infarcts. There is no susceptibility artifact to suggest hemorrhage. There is no mass effect or midline shift. There is no hydrocephalus. There are 15-20 scattered focal areas of T2/FLAIR hyperintensity throughout the cerebral white matter. The distribution and configuration of these lesions favors demyelinating disease. There is a suspected chronic lacunar infarct within the left thalamus and there are chronic lacunar infarcts or dilated perivascular spaces within the bilateral putamina. The orbits are unremarkable. The right maxillary sinus is slightly decreased in size, likely due to hypoplasia or chronic sinusitis. There is mild paranasal sinus thickening. There is trace fluid within the mastoid air cells. There are normal flow voids within the cerebral vessels. IMPRESSION: 1. Several scattered foci of restricted diffusion within the posterior right frontal lobe, right caudate nucleus, the junction of the left thalamus and internal capsule, left parietal-occipital junction and right cerebellum and possibly left cerebellum. This is most likely due to scattered acute or subacute infarcts. 2. Multiple scattered focal areas of T2/FLAIR hyperintensity throughout the cerebral white matter, the majority which are separate from the aforementioned areas of suspected acute or subacute infarction. The distribution and configuration of these lesions and age of the patient favors demyelinating disease as the underlying etiology. Correlate with clinical history and possible CSF analysis. 3. Suspected chronic lacunar infarct within the left thalamus and possible chronic lacunar infarcts or dilated perivascular spaces within the bilateral renal ganglia. Findings were discussed with Jimbo, the nurse caring for the patient, at 1640 hours on 07/18/2016. Electronically signed by: Jocelyn Miller MD (07/18/2016 4:42 PM)
[2016-07-18] MEDS: INSULIN ASPART 300 UNITS/3 ML INSULN.PEN SQ SCH (17:00)
[2016-07-18 17:35] VITALS: BP 170/93
[2016-07-18] MEDS: FERROUS SULFATE 325 MG TABLET. PO SCH (18:30)
[2016-07-18] MEDS: PANTOPRAZOLE 40 MG TABLET.DR. PO SCH (18:30)
[2016-07-18] MEDS: ASPIRIN ENTERIC COATED 325 MG TABLET.DR. PO SCH (18:30)
[2016-07-18] MEDS: CLOPIDOGREL BISULFATE 75 MG TABLET PO SCH (18:31)
[2016-07-18] MEDS: CARVEDILOL 12.5 MG TABLET. PO SCH (18:31)
[2016-07-18] MEDS: ENOXAPARIN 40 MG/0.4 ML SYRINGE. SQ SCH (18:32)
[2016-07-18] MEDS: IPRATRPIUM/ALBUTEROL 0.5/2.5MG 3 ML NEBU. NEB SCH ×2 (19:52→20:39)
[2016-07-18 19:57] VITALS: BP 159/85
[2016-07-18] MEDS ORDERED: ATORVASTATIN CALCIUM 10 MG TABLET. PO SCH (21:00)
[2016-07-18] MEDS ORDERED: ATORVASTATIN CALCIUM 20 MG TABLET PO SCH (21:00)
[2016-07-18] MEDS: HYDROcodone/APAP 5/325MG 1 TAB TABLET PO PRN (21:18)
[2016-07-18 23:41] VITALS: BP 149/91
[2016-07-19] MEDS: IV NORMAL SALINE 1000ML BAG 1,000 ML IV SCH ×2 (01:10→01:57)
[2016-07-19 03:37] VITALS: BP 150/87
[2016-07-19 04:19] LABS: BASO # 0.1 x10^3/uL (0.0-0.2); BASO % 1 % (0-3); EOS % 4 % (0-3); HEMATOCRIT 33.9 % (36.0-47.0); HEMOGLOBIN 11.2 g/dL (12.0-15.5); LYMPH # 2.4 x10^3/uL (1.0-4.8); LYMPH % 31 % (24-48); MEAN CORPUSCULAR HEMOGLOBIN 31 pg (25-35); MEAN CORPUSCULAR HGB CONC 33 g/dL (31-37); MEAN CORPUSCULAR VOLUME 92 fL (79-100); MONO % 11 % (0-9); NEUT % 53 % (31-73); PLATELET COUNT 254 x10^3/uL (140-400); RED BLOOD COUNT 3.68 x10^6/uL (3.50-5.40); RED CELL DISTRIBUTION WIDTH 16.1 % (11.5-14.5); WHITE BLOOD COUNT 7.6 x10^3/uL (4.0-11.0)
[2016-07-19 04:29] LABS: CALCIUM 8.8 mg/dL (8.5-10.1); CREATININE 0.9 mg/dL (0.6-1.0); GFR 82.7; POTASSIUM 4.1 mmol/L (3.5-5.1)
[2016-07-19 04:39] LABS: CHOLESTEROL/HDL RATIO 3.9
[2016-07-19] MEDS: IPRATRPIUM/ALBUTEROL 0.5/2.5MG 3 ML NEBU. NEB SCH ×4 (07:32→20:08)
[2016-07-19] MEDS: FERROUS SULFATE 325 MG TABLET. PO SCH (07:58)
[2016-07-19] MEDS: ASPIRIN ENTERIC COATED 325 MG TABLET.DR. PO SCH (07:58)
[2016-07-19] MEDS: CARVEDILOL 12.5 MG TABLET. PO SCH ×3 (07:58→18:05)
[2016-07-19 07:59] VITALS: BP 175/99
[2016-07-19] MEDS: PANTOPRAZOLE 40 MG TABLET.DR. PO SCH (07:59)
[2016-07-19] MEDS: CLOPIDOGREL BISULFATE 75 MG TABLET PO SCH (07:59)
[2016-07-19] MEDS: ASPIRIN 325 MG TABLET PO SCH (08:00)
[2016-07-19] MEDS: INSULIN ASPART 300 UNITS/3 ML INSULN.PEN SQ SCH ×3 (08:16→17:00)
[2016-07-19] MEDS: ASPIRIN CHEWABLE 81 MG TABLET. PO SCH (09:00)
[2016-07-19] MEDS: amLODIPine BESYLATE 10 MG TABLET PO SCH (09:00)
[2016-07-19] MEDS: hydrALAZINE 25 MG TABLET PO SCH (09:00)
--- NOTE | 2016-07-19 10:34 | PDOC ---
PROGRESS NOTES Assessment Problems Medical Problems: (1) Acute CVA (cerebrovascular accident) Status: Acute (2) Chest pain Status: Acute (3) Cocaine abuse Status: Acute (4) Hypertension Status: Acute (5) Noncompliance with medications Status: Acute (6) Type 2 diabetes mellitus Status: Acute Left base of ganglia lacunar stroke already apparent on the head CT related to her known hypertension and diabetes. MRI brain shows multiple other acute white matter infarcts consistent with her history of hypertension, diabetes, and cocaine use. Chronic white matter abnormalities, given her use of cocaine, hypertension, and diabetes, these are much more likely to be related to cerebrovascular disease than multiple sclerosis. Plan Blood pressure and diabetic control Statin Rehabilitation modalities Aspirin Observe over weekend No need for workup for multiple sclerosis Subjective Feels better Objective Vital Signs Date Time Temp Pulse Resp B/P (MAP) Pulse Ox O2 Delivery O2 Flow Rate FiO2 07/19/16 07:59 97.7 78 20 175/99 (124) 98 Room Air 97.7 Intake and Output 07/19/16 07:00 Intake Total 450 ml Balance 450 ml Intake Oral 300 ml IV Total 150 ml # Voids 3 PHYSICAL EXAM Alert. Oriented to time, place and person. PERRL. EOMI. CN: no focal findings. Muscle tone: normal. Muscle strength: 5-/5 on right, 5/5 on left DTR: 1+ Plantar reflex: flexor Gait: not examined in bed. Sensory exam: no abnormal findings. No cerebellar signs elicited. Review of Relevant I have reviewed the following items cecilia (where applicable) has been applied. Labs Laboratory Tests Test 07/18/16 13:02 07/18/16 13:24 07/18/16 13:50 07/18/16 14:25 Bedside Urine HCG, Qualitative Hcg negative (Negative) White Blood Count 8.2 x10^3/uL (4.0-11.0) Red Blood Count 3.98 x10^6/uL (3.50-5.40) Hemoglobin 12.1 g/dL (12.0-15.5) Hematocrit 36.3 % (36.0-47.0) Mean Corpuscular Volume 91 fL (79-100) Mean Corpuscular Hemoglobin 31 pg (25-35) Mean Corpuscular Hemoglobin Concent 33 g/dL (31-37) Red Cell Distribution Width 15.7 % (11.5-14.5) Platelet Count 302 x10^3/uL (140-400) Neutrophils (%) (Auto) 63 % (31-73) Lymphocytes (%) (Auto) 26 % (24-48) Monocytes (%) (Auto) 7 % (0-9) Eosinophils (%) (Auto) 2 % (0-3) Basophils (%) (Auto) 1 % (0-3) Neutrophils # (Auto) 5.2 x10^3uL (1.8-7.7) Lymphocytes # (Auto) 2.2 x10^3/uL (1.0-4.8) Monocytes # (Auto) 0.6 x10^3/uL (0.0-1.1) Eosinophils # (Auto) 0.2 x10^3/uL (0.0-0.7) Basophils # (Auto) 0.1 x10^3/uL (0.0-0.2) Prothrombin Time 13.3 SEC (11.7-14.0) Prothromb Time International Ratio 1.1 (0.8-1.1) Activated Partial Thromboplast Time 31 SEC (24-38) Urine Color Yellow Urine Clarity Cloudy Urine pH 6.0 Urine Specific Byers >=1.030 Urine Protein 30 mg/dL (NEG-TRACE) Urine Glucose (UA) >=1000 mg/dL (NEG) Urine Ketones (Stick) Negative mg/dL (NEG) Urine Blood Negative (NEG) Urine Nitrite Negative (NEG) Urine Bilirubin Negative (NEG) Urine Urobilinogen Dipstick 1.0 mg/dL (0.2 mg/dL) Urine Leukocyte Esterase Negative (NEG) Urine RBC 0 /HPF (0-2) Urine WBC 0 /HPF (0-4) Urine Squamous Epithelial Cells Many /LPF Urine Bacteria 0 /HPF (0-FEW) Urine Mucus Mod /LPF Urine Yeast Present /HPF Urine Opiates Screen Neg (NEG) Urine Methadone Screen Neg (NEG) Urine Barbiturates Neg (NEG) Urine Phencyclidine Screen Neg (NEG) Urine Amphetamine/Methamphetamine Neg (NEG) Urine Benzodiazepines Screen Neg (NEG) Urine Cocaine Screen Pos (NEG) Urine Cannabinoids Screen Pos (NEG) Urine Ethyl Alcohol Neg (NEG) Sodium Level 139 mmol/L (136-145) Potassium Level 4.3 mmol/L (3.5-5.1) Chloride Level 104 mmol/L (98-107) Carbon Dioxide Level 25 mmol/L (21-32) Anion Gap 10 (6-14) Blood Urea Nitrogen 11 mg/dL (7-20) Creatinine 0.9 mg/dL (0.6-1.0) Estimated GFR (Cockcroft-Gault) 82.7 BUN/Creatinine Ratio 12 (6-20) Glucose Level 259 mg/dL (70-99) Calcium Level 8.6 mg/dL (8.5-10.1) Magnesium Level 1.8 mg/dL (1.8-2.4) Total Bilirubin 0.3 mg/dL (0.2-1.0) Aspartate Amino Transf (AST/SGOT) 25 U/L (15-37) Alanine Aminotransferase (ALT/SGPT) 26 U/L (14-59) Alkaline Phosphatase 72 U/L (46-116) Troponin I Quantitative < 0.017 ng/mL (0.000-0.055) Total Protein 7.3 g/dL (6.4-8.2) Albumin 3.5 g/dL (3.4-5.0) Albumin/Globulin Ratio 0.9 (1.0-1.7) Lipase 205 U/L (73-393) Test 07/18/16 17:32 07/18/16 20:35 07/19/16 04:03 07/19/16 08:10 Glucose (Fingerstick) 191 mg/dL (70-99) 224 mg/dL (70-99) 181 mg/dL (70-99) White Blood Count 7.6 x10^3/uL (4.0-11.0) Red Blood Count 3.68 x10^6/uL (3.50-5.40) Hemoglobin 11.2 g/dL (12.0-15.5) Hematocrit 33.9 % (36.0-47.0) Mean Corpuscular Volume 92 fL (79-100) Mean Corpuscular Hemoglobin 31 pg (25-35) Mean Corpuscular Hemoglobin Concent 33 g/dL (31-37) Red Cell Distribution Width 16.1 % (11.5-14.5) Platelet Count 254 x10^3/uL (140-400) Neutrophils (%) (Auto) 53 % (31-73) Lymphocytes (%) (Auto) 31 % (24-48) Monocytes (%) (Auto) 11 % (0-9) Eosinophils (%) (Auto) 4 % (0-3) Basophils (%) (Auto) 1 % (0-3) Neutrophils # (Auto) 4.0 x10^3uL (1.8-7.7) Lymphocytes # (Auto) 2.4 x10^3/uL (1.0-4.8) Monocytes # (Auto) 0.8 x10^3/uL (0.0-1.1) Eosinophils # (Auto) 0.3 x10^3/uL (0.0-0.7) Basophils # (Auto) 0.1 x10^3/uL (0.0-0.2) Sodium Level 138 mmol/L (136-145) Potassium Level 4.1 mmol/L (3.5-5.1) Chloride Level 104 mmol/L (98-107) Carbon Dioxide Level 22 mmol/L (21-32) Anion Gap 12 (6-14) Blood Urea Nitrogen 9 mg/dL (7-20) Creatinine 0.9 mg/dL (0.6-1.0) Estimated GFR (Cockcroft-Gault) 82.7 Glucose Level 140 mg/dL (70-99) Calcium Level 8.8 mg/dL (8.5-10.1) Troponin I Quantitative < 0.017 ng/mL (0.000-0.055) Triglycerides Level 150 mg/dL (0-150) Cholesterol Level 201 mg/dL (0-200) LDL Cholesterol, Calculated 119 mg/dL (0-100) VLDL Cholesterol, Calculated 30 mg/dL (0-40) Non-HDL Cholesterol Calculated 149 mg/dL (0-129) HDL Cholesterol 52 mg/dL (40-60) Cholesterol/HDL Ratio 3.9 Laboratory Tests Test 07/18/16 13:02 07/18/16 13:24 07/18/16 13:50 07/18/16 14:25 Bedside Urine HCG, Qualitative Hcg negative (Negative) White Blood Count 8.2 x10^3/uL (4.0-11.0) Red Blood Count 3.98 x10^6/uL (3.50-5.40) Hemoglobin 12.1 g/dL (12.0-15.5) Hematocrit 36.3 % (36.0-47.0) Mean Corpuscular Volume 91 fL (79-100) Mean Corpuscular Hemoglobin 31 pg (25-35) Mean Corpuscular Hemoglobin Concent 33 g/dL (31-37) Red Cell Distribution Width 15.7 % (11.5-14.5) Platelet Count 302 x10^3/uL (140-400) Neutrophils (%) (Auto) 63 % (31-73) Lymphocytes (%) (Auto) 26 % (24-48) Monocytes (%) (Auto) 7 % (0-9) Eosinophils (%) (Auto) 2 % (0-3) Basophils (%) (Auto) 1 % (0-3) Neutrophils # (Auto) 5.2 x10^3uL (1.8-7.7) Lymphocytes # (Auto) 2.2 x10^3/uL (1.0-4.8) Monocytes # (Auto) 0.6 x10^3/uL (0.0-1.1) Eosinophils # (Auto) 0.2 x10^3/uL (0.0-0.7) Basophils # (Auto) 0.1 x10^3/uL (0.0-0.2) Prothrombin Time 13.3 SEC (11.7-14.0) Prothromb Time International Ratio 1.1 (0.8-1.1) Activated Partial Thromboplast Time 31 SEC (24-38) Urine Color Yellow Urine Clarity Cloudy Urine pH 6.0 Urine Specific [place]ers >=1.030 Urine Protein 30 mg/dL (NEG-TRACE) Urine Glucose (UA) >=1000 mg/dL (NEG) Urine Ketones (Stick) Negative mg/dL (NEG) Urine Blood Negative (NEG) Urine Nitrite Negative (NEG) Urine Bilirubin Negative (NEG) Urine Urobilinogen Dipstick 1.0 mg/dL (0.2 mg/dL) Urine Leukocyte Esterase Negative (NEG) Urine RBC 0 /HPF (0-2) Urine WBC 0 /HPF (0-4) Urine Squamous Epithelial Cells Many /LPF Urine Bacteria 0 /HPF (0-FEW) Urine Mucus Mod /LPF Urine Yeast Present /HPF Urine Opiates Screen Neg (NEG) Urine Methadone Screen Neg (NEG) Urine Barbiturates Neg (NEG) Urine Phencyclidine Screen Neg (NEG) Urine Amphetamine/Methamphetamine Neg (NEG) Urine Benzodiazepines Screen Neg (NEG) Urine Cocaine Screen Pos (NEG) Urine Cannabinoids Screen Pos (NEG) Urine Ethyl Alcohol Neg (NEG) Sodium Level 139 mmol/L (136-145) Potassium Level 4.3 mmol/L (3.5-5.1) Chloride Level 104 mmol/L (98-107) Carbon Dioxide Level 25 mmol/L (21-32) Anion Gap 10 (6-14) Blood Urea Nitrogen 11 mg/dL (7-20) Creatinine 0.9 mg/dL (0.6-1.0) Estimated GFR (Cockcroft-Gault) 82.7 BUN/Creatinine Ratio 12 (6-20) Glucose Level 259 mg/dL (70-99) Calcium Level 8.6 mg/dL (8.5-10.1) Magnesium Level 1.8 mg/dL (1.8-2.4) Total Bilirubin 0.3 mg/dL (0.2-1.0) Aspartate Amino Transf (AST/SGOT) 25 U/L (15-37) Alanine Aminotransferase (ALT/SGPT) 26 U/L (14-59) Alkaline Phosphatase 72 U/L (46-116) Troponin I Quantitative < 0.017 ng/mL (0.000-0.055) Total Protein 7.3 g/dL (6.4-8.2) Albumin 3.5 g/dL (3.4-5.0) Albumin/Globulin Ratio 0.9 (1.0-1.7) Lipase 205 U/L (73-393) Test 07/18/16 17:32 07/18/16 20:35 07/19/16 04:03 07/19/16 08:10 Glucose (Fingerstick) 191 mg/dL (70-99) 224 mg/dL (70-99) 181 mg/dL (70-99) White Blood Count 7.6 x10^3/uL (4.0-11.0) Red Blood Count 3.68 x10^6/uL (3.50-5.40) Hemoglobin 11.2 g/dL (12.0-15.5) Hematocrit 33.9 % (36.0-47.0) Mean Corpuscular Volume 92 fL (79-100) Mean Corpuscular Hemoglobin 31 pg (25-35) Mean Corpuscular Hemoglobin Concent 33 g/dL (31-37) Red Cell Distribution Width 16.1 % (11.5-14.5) Platelet Count 254 x10^3/uL (140-400) Neutrophils (%) (Auto) 53 % (31-73) Lymphocytes (%) (Auto) 31 % (24-48) Monocytes (%) (Auto) 11 % (0-9) Eosinophils (%) (Auto) 4 % (0-3) Basophils (%) (Auto) 1 % (0-3) Neutrophils # (Auto) 4.0 x10^3uL (1.8-7.7) Lymphocytes # (Auto) 2.4 x10^3/uL (1.0-4.8) Monocytes # (Auto) 0.8 x10^3/uL (0.0-1.1) Eosinophils # (Auto) 0.3 x10^3/uL (0.0-0.7) Basophils # (Auto) 0.1 x10^3/uL (0.0-0.2) Sodium Level 138 mmol/L (136-145) Potassium Level 4.1 mmol/L (3.5-5.1) Chloride Level 104 mmol/L (98-107) Carbon Dioxide Level 22 mmol/L (21-32) Anion Gap 12 (6-14) Blood Urea Nitrogen 9 mg/dL (7-20) Creatinine 0.9 mg/dL (0.6-1.0) Estimated GFR (Cockcroft-Gault) 82.7 Glucose Level 140 mg/dL (70-99) Calcium Level 8.8 mg/dL (8.5-10.1) Troponin I Quantitative < 0.017 ng/mL (0.000-0.055) Triglycerides Level 150 mg/dL (0-150) Cholesterol Level 201 mg/dL (0-200) LDL Cholesterol, Calculated 119 mg/dL (0-100) VLDL Cholesterol, Calculated 30 mg/dL (0-40) Non-HDL Cholesterol Calculated 149 mg/dL (0-129) HDL Cholesterol 52 mg/dL (40-60) Cholesterol/HDL Ratio 3.9 Medications Current Medications Sodium Chloride 1,000 ml @ 100 mls/hr Q10H IV Last administered on 07/18/16t 13 :50; Start 07/18/16 at 13:26; Stop 07/18/16 at 23:25; Status DC Aspirin (Yenifer Aspirin) 325 mg 1X ONCE PO Last administered on 07/18/16 15:24 ; Start 07/18/16 at 14:45; Stop 07/18/16 at 14:49; Status DC Ondansetron HCl (Zofran) 4 mg PRN Q8HRS PRN IV NAUSEA/VOMITING; Start 07/18/16 at 15:00; Stop 07/19/16 at 14:59 Fentanyl Citrate (Fentanyl 2ml Vial) 50 mcg PRN Q2HR PRN IV PAIN; Start at 15:00; Stop 07/19/16 at 14:59 Sodium Chloride 1,000 ml @ 125 mls/hr Q8H IV ; Start 07/18/16 at 14:59; Stop 07/19/16 at 09:35; Status DC Acetaminophen (Tylenol) 650 mg PRN Q4HRS PRN PO FEVER; Start 07/18/16 at 15:00; Stop 07/19/16 at 14:59 Aspirin (Yenifer Aspirin) 325 mg DAILYWBKFT PO ; Start 07/19/16 at 08:00 Amlodipine Besylate (Norvasc) 10 mg DAILY PO ; Start 07/18/16 at 16:00 Aspirin (Children'S Aspirin) 81 mg DAILY PO ; Start 07/18/16 at 16:00; Stop at 09:35; Status DC Carvedilol (Coreg) 12.5 mg BIDWMEALS PO Last administered on 07/19/16 07:58; Start 07/18/16 at 17:00 Clopidogrel Bisulfate (Plavix) 75 mg DAILYWBKFT PO Last administered on 07:59; Start 07/18/16 at 16:00 Ferrous Sulfate (Feosol) 325 mg DAILY PO Last administered on 07/19/16 07:58; Start 07/18/16 at 16:00 Fluticasone Propionate (Flonase) 2 spray DAILY NS ; Start 07/19/16 at 09:00 Hydralazine HCl (Apresoline) 25 mg TID PO ; Start 07/18/16 at 16:00 Acetaminophen/ Hydrocodone Bitart (Lortab 5/325) 1 tab PRN Q6HRS PRN PO PAIN Last administered on 07/18/16 21:18; Start 07/18/16 at 15:15 Isosorbide Mononitrate (Imdur) 30 mg DAILY PO ; Start 07/18/16 at 16:00 Metformin HCl (Glucophage) 1,000 mg BIDWMEALS PO Last administered on 07/19/16 07:58; Start 07/18/16 at 17:00 Pantoprazole Sodium (Protonix) 40 mg DAILYAC PO Last administered on 07/19/16 07:59; Start 07/18/16 at 16:30 Atorvastatin Calcium (Lipitor) 10 mg QHS PO ; Start 07/18/16 at 21:00; Stop at 09:35; Status DC Sodium Chloride (Normal Saline Flush) 3 ml QSHIFT PRN IV AFTER MEDS AND BLOOD DRAWS; Start 07/18/16 at 15:15 Sodium Chloride 1,000 ml @ 100 mls/hr Q10H IV ; Start 07/18/16 at 15:10 Aspirin (Ecotrin) 325 mg DAILYWBKFT PO Last administered on 07/19/16 07:58; Start 07/18/16 at 16:00; Stop 07/19/16 at 09:35; Status DC Atorvastatin Calcium (Lipitor) 20 mg QHS PO Last administered on 07/18/16 21:17 ; Start 07/18/16 at 21:00 Labetalol HCl (Normodyne) 10 mg PRN Q10MIN PRN IV HYPERTENSION, SEE COMMENTS; Start 07/18/16 at 15:15 Acetaminophen (Tylenol) 650 mg PRN Q6HRS PRN PO FEVER; Start 07/18/16 at 15:15; Stop 07/18/16 at 15:34; Status DC Acetaminophen (Acetaminophen Supp) 650 mg PRN Q6HRS PRN [place] FEVER; Start at 15:15 Ondansetron HCl (Zofran) 4 mg PRN Q6HRS PRN IV NAUSEA/VOMITING; Start 07/18/16 at 15:15 Enoxaparin Sodium (Lovenox 40mg Syringe) 40 mg Q24H SQ Last administered on 07/18 18:32; Start 07/18/16 at 16:00 Hydralazine HCl (Apresoline) 10 mg PRN Q4HRS PRN IVP ELEVATED BP, SEE COMMENTS ; Start 07/18/16 at 15:30 Insulin Aspart (NovoLOG) 0-9 UNITS TIDWMEALS SQ Last administered on 07/19/16 08:16; Start 07/18/16 at 17:00 Dextrose (Dextrose 50%-Water Syringe) 12.5 gm PRN Q15MIN PRN IV SEE COMMENTS; Start 07/18/16 at 15:30 Nicotine (Nicoderm Cq 21mg) 1 patch PRN DAILY PRN TD SMOKING CESSATION; Start 07/18/16 at 15:30 Albuterol/ Ipratropium (Duoneb) 3 ml RTQID NEB Last administered on 07/19/16 07 :32; Start 07/18/16 at 16:00 Albuterol Sulfate (Ventolin Neb Soln) 2.5 mg PRN Q2HR PRN NEB SHORTNESS OF BREATH; Start 07/18/16 at 15:30 Guaifenesin (Mucinex) 600 mg BID PO Last administered on 07/19/16 07:58; Start 07/18/16 at 21:00 Active Scripts Active Naproxen 500 Mg Tablet.dr 1 Tab PO BID [place] 5-325 Tablet (Acetaminophen/Hydrocodone Bitart) 1 Each Tablet 1-2 Tab PO Q4-6HRS Isosorbide Mononitrate Er (Isosorbide Mononitrate) 30 Mg Tab.er.24h 30 Mg PO DAILY Hydralazine Hcl 25 Mg Tablet 25 Mg PO TID Fluticasone Propionate Nasal [place] (Fluticasone Propionate) 16 Gm [place].susp 2 [place] NS DAILY Amlodipine Besylate 5 Mg Tablet 10 Mg PO DAILY Pantoprazole Sodium 40 Mg Tablet.dr 40 Mg PO DAILYAC Coreg (Carvedilol) 12.5 Mg Tablet 12.5 Mg PO BIDWMEALS Lovastatin 40 Mg Tablet 40 Mg PO DAILY Metformin Hcl 1,000 Mg Tablet 1,000 Mg PO BID Clopidogrel (Clopidogrel Bisulfate) 75 Mg Tablet 75 Mg PO DAILYWBKFT Reported [depression pill] 1 Tab PO DAILY Iron Supplement (Ferrous Sulfate) 325 Mg Tablet 1 Tab PO DAILY Aspirin 81 Mg Tab.chew 1 Tab PO DAILY Vitals/I & O Vital Sign - Last 24 Hours 07/18/16 07/18/16 07/18/16 07/18/16 13:20 13:51 14:15 14:45 Temp 98.3 98.3 Pulse 82 75 82 72 Resp 16 20 22 27 B/P (MAP) 178/92 (120) 187/92 (123) 177/90 (119) 188/88 (121) Pulse Ox 99 99 100 99 O2 Delivery Room Air Room Air 07/18/16 07/18/16 07/18/16 07/18/16 16:00 16:00 17:35 17:35 Temp 98.2 98.2 98.2 98.2 Pulse 74 74 74 74 Resp 20 20 B/P (MAP) 170/93 170/93 170/93 (118) 170/93 (118) Pulse Ox 99 99 O2 Delivery Room Air Room Air 07/18/16 07/18/16 07/18/16 07/18/16 18:31 19:57 20:43 23:13 Temp 98.1 98.1 Pulse 74 82 Resp 18 B/P (MAP) 170/93 159/85 (109) Pulse Ox 99 99 O2 Delivery Room Air Room Air Room Air 07/18/16 07/19/16 07/19/16 07/19/16 23:41 03:37 07:32 07:58 Temp 98.2 99.0 98.2 99.0 Pulse 82 83 83 Resp 18 18 B/P (MAP) 149/91 (110) 150/87 (108) 150/87 Pulse Ox 100 100 99 O2 Delivery Room Air Room Air Room Air 07/19/16 07:59 Temp 97.7 97.7 Pulse 78 Resp 20 B/P (MAP) 175/99 (124) Pulse Ox 98 O2 Delivery Room Air Intake and Output 07/18/16 07/18/16 07/19/16 15:00 23:00 07:00 Intake Total 150 ml 300 ml Balance 150 ml 300 ml Images MRI brain: FINDINGS: There are multiple there are 6 foci of restricted diffusion within the bilateral cerebral and cerebellar hemispheres. These are located within the posterior lateral right frontal lobe, the right caudate nucleus, the junction of the left thalamus and internal capsule, left parieto-occipital junction and the right cerebellum and possibly left cerebellum. These are consistent with acute or subacute infarcts. There is no susceptibility artifact to suggest hemorrhage. There is no mass effect or midline shift. There is no hydrocephalus. There are 15-20 scattered focal areas of T2/FLAIR hyperintensity throughout the cerebral white matter. The distribution and configuration of these lesions favors demyelinating disease. There is a suspected chronic lacunar infarct within the left thalamus and there are chronic lacunar infarcts or dilated perivascular spaces within the bilateral putamina. The orbits are unremarkable. The right maxillary sinus is slightly decreased in size, likely due to hypoplasia or chronic sinusitis. There is mild paranasal sinus thickening. There is trace fluid within the mastoid air cells. There are normal flow voids within the cerebral vessels. IMPRESSION: 1. Several scattered foci of restricted diffusion within the posterior right frontal lobe, right caudate nucleus, the junction of the left thalamus and internal capsule, left parietal-occipital junction and right cerebellum and possibly left cerebellum. This is most likely due to scattered acute or subacute infarcts. 2. Multiple scattered focal areas of T2/FLAIR hyperintensity throughout the cerebral white matter, the majority which are separate from the aforementioned areas of suspected acute or subacute infarction. The distribution and configuration of these lesions and age of the patient favors demyelinating disease as the underlying etiology. Correlate with clinical history and possible CSF analysis. 3. Suspected chronic lacunar infarct within the left thalamus and possible chronic lacunar infarcts or dilated perivascular spaces within the bilateral renal ganglia. Carotids: On the right significant plaquing is not seen. The color Doppler images do not suggest significant turbulence. The common carotid waveform and velocities are normal. The external carotid has a normal appearance. The internal carotid waveform and velocities are also normal. The vertebral is patent and demonstrates normal directional flow. On the left there is no significant plaquing. The color Doppler images do not suggest significant turbulence. The common carotid waveform and velocities are normal. The external carotid has a normal appearance. The internal carotid waveform and velocities are normal. The vertebral is patent and demonstrates normal directional flow. IMPRESSION: No evidence of hemodynamically significant stenosis at either carotid bifurcation. Stenosis 0-50%. Echocardiogram:Pending CAT DORADO MD Jul 19, 2016 10:34
[2016-07-19 10:35] VITALS: BP 181/104
--- NOTE | 2016-07-19 11:01 | CARD ---
APPROVED REPORT EXAM: Two-dimensional and M-mode echocardiogram with Doppler and color Doppler. Other Information Quality : GoodHR: 69bpm Rhythm : NSR INDICATION Acute CVA RISK FACTORS Hypertension 2D DIMENSIONS RVDd2.5 (2.9-3.5cm)Left Atrium(2D)3.9 (1.6-4.0cm) IVSd1.1 (0.7-1.1cm)Aortic Root(2D)2.4 (2.0-3.7cm) LVDd4.9 (3.9-5.9cm)LVOT Diameter2.2 (1.8-2.4cm) PWd1.1 (0.7-1.1cm)LVDs3.0 (2.5-4.0cm) FS (%) 39.7 %SV79.1 ml LVEF(%)70.1 (>50%) Aortic Valve AoV Peak Jon.127.9cm/sAoV VTI25.9cm AO Peak GR.6.5mmHgLVOT Peak Jon.114.1cm/s AO Mean GR.4mmHgAVA (VMAX)3.45cm2 Mitral Valve MV E Nawlclfg40.4cm/sMV E Peak Gr.3mmHg MV DECEL [id number] A Hnqmyerf21.0cm/s MV E Mean Gr.1mmHgE/A Ratio1.1 MV A [id number] Pulmonary Valve PV Peak Getyjvsg56.9cm/s Pulmonary Vein S1 Btxdrvwz25.0cm/sD2 Tlvvkocg17.2cm/s PVa [id number] LEFT VENTRICLE The left ventricle is normal size. There is mild concentric left ventricular hypertrophy. The left ve ntricular systolic function is normal and the ejection fraction is within normal range. The Ejection Fraction is 60-65%. There is normal LV segmental wall motion. The left ventricular diastolic function and filling is normal for age. No left ventricle thrombus noted on this study. There is no ventricul ar septal defect visualized. RIGHT VENTRICLE The right ventricle is normal size. There is normal right ventricular wall thickness. The right ventr icular systolic function is normal. ATRIA The left atrium is mildly dilated. The right atrium size is normal. There is a small interatrial shun t, consistent with PFO upon injection of agitated saline contrast. AORTIC VALVE The aortic valve is normal in structure and function. Doppler and Color Flow revealed no significant aortic regurgitation. There is no significant aortic valvular stenosis. MITRAL VALVE The mitral valve is normal in structure and function. There is no evidence of mitral valve prolapse. There is no mitral valve stenosis. Doppler and Color Flow revealed trace mitral regurgitation. TRICUSPID VALVE Doppler and Color Flow revealed trace tricuspid regurgitation. Pulmonary artery pressures could not b e assessed at exam time. PULMONIC VALVE Doppler and Color Flow revealed no pulmonic valvular regurgitation. There is no pulmonic valvular farhan nosis. GREAT VESSELS The aortic root is normal in size. The ascending aorta is normal in size. The pulmonary artery is nor mal. The IVC is normal in size and collapses >50% with inspiration. PERICARDIAL EFFUSION There is no evidence of significant pericardial effusion. Critical Notification Critical Value: No <Conclusion> The left ventricular systolic function is normal and the ejection fraction is within normal range. Th e Ejection Fraction is 60-65%. There is normal LV segmental wall motion. There is a small interatrial shunt, consistent with PFO upon injection of agitated saline contrast. ( Positive bubble study)
[2016-07-19] MEDS: FLUTICASONE 50MCG/NASAL SPRAY 16GM BOTTLE. NS SCH (11:43)
[2016-07-19] MEDS: ISOSORBIDE MONONITRATE ER 30 MG TAB.ER.24H PO SCH (11:44)
[2016-07-19] MEDS: HYDROcodone/APAP 5/325MG 1 TAB TABLET PO PRN ×2 (11:48→20:22)
[2016-07-19] MEDS ORDERED: FLUCONAZOLE 100 MG TABLET. PO ONE (12:00)
[2016-07-19] MEDS ORDERED: traMADol 50 MG TABLET PO PRN (12:00)
--- NOTE | 2016-07-19 13:25 | PDOC ---
PROGRESS NOTES Chief Complaint Chief Complaint 1. acute ischemic left basal ganglia stroke 2. HTN urgency 3. uncompliance wo insurance 4. h/o CVA wo deficit 5. h/o CAD with PCI 3 stents 6. dm2 7. obesity 8. drug abuse with marijuana daily, denies cocaine, but + in urine tox plan: fu with Neuro control HTN cont home meds, was on many HTN meds, which pt didnot take anyway, dc hydralazine and imdur. on ASA 325mg daily as per neuro, cont plavix mri brain done. echo, carotid US neg dvt ppx PTOT SW for medicaid and clinic referral check hba1c, lipid panel. increase lipitor to 40mg daily SSI ALBUTERol prn diflucan x1 for possible fungus vaginitis History of Present Illness History of Present Illness STILL right side weakness, leg is worse c/o right shoulder pain with rotator cuff tear history c/o vaginal discharge and pain high BP + headache Vitals Vitals Vital Signs Date Time Temp Pulse Resp B/P (MAP) Pulse Ox O2 Delivery O2 Flow Rate FiO2 07/19/16 11:48 20 Room Air 07/19/16 11:44 75 181/104 07/19/16 10:35 98.1 99 98.1 Physical Exam Physical Exam right arm strength 4/5, leg 2-3/5 General: Alert, Oriented X3, Cooperative Heart: Regular rate, Normal S1 Lungs: Clear Abdomen: Normal bowel sounds, Soft Extremities: No clubbing, No cyanosis Labs LABS Laboratory Tests Test 07/18/16 13:24 07/18/16 13:50 07/18/16 14:25 07/18/16 17:32 White Blood Count 8.2 x10^3/uL (4.0-11.0) Red Blood Count 3.98 x10^6/uL (3.50-5.40) Hemoglobin 12.1 g/dL (12.0-15.5) Hematocrit 36.3 % (36.0-47.0) Mean Corpuscular Volume 91 fL (79-100) Mean Corpuscular Hemoglobin 31 pg (25-35) Mean Corpuscular Hemoglobin Concent 33 g/dL (31-37) Red Cell Distribution Width 15.7 % (11.5-14.5) Platelet Count 302 x10^3/uL (140-400) Neutrophils (%) (Auto) 63 % (31-73) Lymphocytes (%) (Auto) 26 % (24-48) Monocytes (%) (Auto) 7 % (0-9) Eosinophils (%) (Auto) 2 % (0-3) Basophils (%) (Auto) 1 % (0-3) Neutrophils # (Auto) 5.2 x10^3uL (1.8-7.7) Lymphocytes # (Auto) 2.2 x10^3/uL (1.0-4.8) Monocytes # (Auto) 0.6 x10^3/uL (0.0-1.1) Eosinophils # (Auto) 0.2 x10^3/uL (0.0-0.7) Basophils # (Auto) 0.1 x10^3/uL (0.0-0.2) Prothrombin Time 13.3 SEC (11.7-14.0) Prothromb Time International Ratio 1.1 (0.8-1.1) Activated Partial Thromboplast Time 31 SEC (24-38) Urine Color Yellow Urine Clarity Cloudy Urine pH 6.0 Urine Specific [place] >=1.030 Urine Protein 30 mg/dL (NEG-TRACE) Urine Glucose (UA) >=1000 mg/dL (NEG) Urine Ketones (Stick) Negative mg/dL (NEG) Urine Blood Negative (NEG) Urine Nitrite Negative (NEG) Urine Bilirubin Negative (NEG) Urine Urobilinogen Dipstick 1.0 mg/dL (0.2 mg/dL) Urine Leukocyte Esterase Negative (NEG) Urine RBC 0 /HPF (0-2) Urine WBC 0 /HPF (0-4) Urine Squamous Epithelial Cells Many /LPF Urine Bacteria 0 /HPF (0-FEW) Urine Mucus Mod /LPF Urine Yeast Present /HPF Urine Opiates Screen Neg (NEG) Urine Methadone Screen Neg (NEG) Urine Barbiturates Neg (NEG) Urine Phencyclidine Screen Neg (NEG) Urine Amphetamine/Methamphetamine Neg (NEG) Urine Benzodiazepines Screen Neg (NEG) Urine Cocaine Screen Pos (NEG) Urine Cannabinoids Screen Pos (NEG) Urine Ethyl Alcohol Neg (NEG) Sodium Level 139 mmol/L (136-145) Potassium Level 4.3 mmol/L (3.5-5.1) Chloride Level 104 mmol/L (98-107) Carbon Dioxide Level 25 mmol/L (21-32) Anion Gap 10 (6-14) Blood Urea Nitrogen 11 mg/dL (7-20) Creatinine 0.9 mg/dL (0.6-1.0) Estimated GFR (Cockcroft-Gault) 82.7 BUN/Creatinine Ratio 12 (6-20) Glucose Level 259 mg/dL (70-99) Calcium Level 8.6 mg/dL (8.5-10.1) Magnesium Level 1.8 mg/dL (1.8-2.4) Total Bilirubin 0.3 mg/dL (0.2-1.0) Aspartate Amino Transf (AST/SGOT) 25 U/L (15-37) Alanine Aminotransferase (ALT/SGPT) 26 U/L (14-59) Alkaline Phosphatase 72 U/L (46-116) Troponin I Quantitative < 0.017 ng/mL (0.000-0.055) Total Protein 7.3 g/dL (6.4-8.2) Albumin 3.5 g/dL (3.4-5.0) Albumin/Globulin Ratio 0.9 (1.0-1.7) Lipase 205 U/L (73-393) Glucose (Fingerstick) 191 mg/dL (70-99) Test 07/18/16 20:35 07/19/16 04:03 07/19/16 08:10 07/19/16 11:55 Glucose (Fingerstick) 224 mg/dL (70-99) 181 mg/dL (70-99) 183 mg/dL (70-99) White Blood Count 7.6 x10^3/uL (4.0-11.0) Red Blood Count 3.68 x10^6/uL (3.50-5.40) Hemoglobin 11.2 g/dL (12.0-15.5) Hematocrit 33.9 % (36.0-47.0) Mean Corpuscular Volume 92 fL (79-100) Mean Corpuscular Hemoglobin 31 pg (25-35) Mean Corpuscular Hemoglobin Concent 33 g/dL (31-37) Red Cell Distribution Width 16.1 % (11.5-14.5) Platelet Count 254 x10^3/uL (140-400) Neutrophils (%) (Auto) 53 % (31-73) Lymphocytes (%) (Auto) 31 % (24-48) Monocytes (%) (Auto) 11 % (0-9) Eosinophils (%) (Auto) 4 % (0-3) Basophils (%) (Auto) 1 % (0-3) Neutrophils # (Auto) 4.0 x10^3uL (1.8-7.7) Lymphocytes # (Auto) 2.4 x10^3/uL (1.0-4.8) Monocytes # (Auto) 0.8 x10^3/uL (0.0-1.1) Eosinophils # (Auto) 0.3 x10^3/uL (0.0-0.7) Basophils # (Auto) 0.1 x10^3/uL (0.0-0.2) Sodium Level 138 mmol/L (136-145) Potassium Level 4.1 mmol/L (3.5-5.1) Chloride Level 104 mmol/L (98-107) Carbon Dioxide Level 22 mmol/L (21-32) Anion Gap 12 (6-14) Blood Urea Nitrogen 9 mg/dL (7-20) Creatinine 0.9 mg/dL (0.6-1.0) Estimated GFR (Cockcroft-Gault) 82.7 Glucose Level 140 mg/dL (70-99) Calcium Level 8.8 mg/dL (8.5-10.1) Troponin I Quantitative < 0.017 ng/mL (0.000-0.055) Triglycerides Level 150 mg/dL (0-150) Cholesterol Level 201 mg/dL (0-200) LDL Cholesterol, Calculated 119 mg/dL (0-100) VLDL Cholesterol, Calculated 30 mg/dL (0-40) Non-HDL Cholesterol Calculated 149 mg/dL (0-129) HDL Cholesterol 52 mg/dL (40-60) Cholesterol/HDL Ratio 3.9 Review of Systems Review of Systems no fever, chills, sob or chest pain Assessment and Plan Assessmemt and Plan Problems Medical Problems: (1) Acute CVA (cerebrovascular accident) Status: Acute (2) Chest pain Status: Acute (3) Cocaine abuse Status: Acute (4) Hypertension Status: Acute (5) Noncompliance with medications Status: Acute (6) Type 2 diabetes mellitus Status: Acute Problems: Comment Review of Relevant I have reviewed the following items cecilia (where applicable) has been applied. Labs Laboratory Tests Test 07/18/16 13:02 07/18/16 13:24 07/18/16 13:50 07/18/16 14:25 Bedside Urine HCG, Qualitative Hcg negative (Negative) White Blood Count 8.2 x10^3/uL (4.0-11.0) Red Blood Count 3.98 x10^6/uL (3.50-5.40) Hemoglobin 12.1 g/dL (12.0-15.5) Hematocrit 36.3 % (36.0-47.0) Mean Corpuscular Volume 91 fL (79-100) Mean Corpuscular Hemoglobin 31 pg (25-35) Mean Corpuscular Hemoglobin Concent 33 g/dL (31-37) Red Cell Distribution Width 15.7 % (11.5-14.5) Platelet Count 302 x10^3/uL (140-400) Neutrophils (%) (Auto) 63 % (31-73) Lymphocytes (%) (Auto) 26 % (24-48) Monocytes (%) (Auto) 7 % (0-9) Eosinophils (%) (Auto) 2 % (0-3) Basophils (%) (Auto) 1 % (0-3) Neutrophils # (Auto) 5.2 x10^3uL (1.8-7.7) Lymphocytes # (Auto) 2.2 x10^3/uL (1.0-4.8) Monocytes # (Auto) 0.6 x10^3/uL (0.0-1.1) Eosinophils # (Auto) 0.2 x10^3/uL (0.0-0.7) Basophils # (Auto) 0.1 x10^3/uL (0.0-0.2) Prothrombin Time 13.3 SEC (11.7-14.0) Prothromb Time International Ratio 1.1 (0.8-1.1) Activated Partial Thromboplast Time 31 SEC (24-38) Urine Color Yellow Urine Clarity Cloudy Urine pH 6.0 Urine Specific [place] >=1.030 Urine Protein 30 mg/dL (NEG-TRACE) Urine Glucose (UA) >=1000 mg/dL (NEG) Urine Ketones (Stick) Negative mg/dL (NEG) Urine Blood Negative (NEG) Urine Nitrite Negative (NEG) Urine Bilirubin Negative (NEG) Urine Urobilinogen Dipstick 1.0 mg/dL (0.2 mg/dL) Urine Leukocyte Esterase Negative (NEG) Urine RBC 0 /HPF (0-2) Urine WBC 0 /HPF (0-4) Urine Squamous Epithelial Cells Many /LPF Urine Bacteria 0 /HPF (0-FEW) Urine Mucus Mod /LPF Urine Yeast Present /HPF Urine Opiates Screen Neg (NEG) Urine Methadone Screen Neg (NEG) Urine Barbiturates Neg (NEG) Urine Phencyclidine Screen Neg (NEG) Urine Amphetamine/Methamphetamine Neg (NEG) Urine Benzodiazepines Screen Neg (NEG) Urine Cocaine Screen Pos (NEG) Urine Cannabinoids Screen Pos (NEG) Urine Ethyl Alcohol Neg (NEG) Sodium Level 139 mmol/L (136-145) Potassium Level 4.3 mmol/L (3.5-5.1) Chloride Level 104 mmol/L (98-107) Carbon Dioxide Level 25 mmol/L (21-32) Anion Gap 10 (6-14) Blood Urea Nitrogen 11 mg/dL (7-20) Creatinine 0.9 mg/dL (0.6-1.0) Estimated GFR (Cockcroft-Gault) 82.7 BUN/Creatinine Ratio 12 (6-20) Glucose Level 259 mg/dL (70-99) Calcium Level 8.6 mg/dL (8.5-10.1) Magnesium Level 1.8 mg/dL (1.8-2.4) Total Bilirubin 0.3 mg/dL (0.2-1.0) Aspartate Amino Transf (AST/SGOT) 25 U/L (15-37) Alanine Aminotransferase (ALT/SGPT) 26 U/L (14-59) Alkaline Phosphatase 72 U/L (46-116) Troponin I Quantitative < 0.017 ng/mL (0.000-0.055) Total Protein 7.3 g/dL (6.4-8.2) Albumin 3.5 g/dL (3.4-5.0) Albumin/Globulin Ratio 0.9 (1.0-1.7) Lipase 205 U/L (73-393) Test 07/18/16 17:32 07/18/16 20:35 07/19/16 04:03 07/19/16 08:10 Glucose (Fingerstick) 191 mg/dL (70-99) 224 mg/dL (70-99) 181 mg/dL (70-99) White Blood Count 7.6 x10^3/uL (4.0-11.0) Red Blood Count 3.68 x10^6/uL (3.50-5.40) Hemoglobin 11.2 g/dL (12.0-15.5) Hematocrit 33.9 % (36.0-47.0) Mean Corpuscular Volume 92 fL (79-100) Mean Corpuscular Hemoglobin 31 pg (25-35) Mean Corpuscular Hemoglobin Concent 33 g/dL (31-37) Red Cell Distribution Width 16.1 % (11.5-14.5) Platelet Count 254 x10^3/uL (140-400) Neutrophils (%) (Auto) 53 % (31-73) Lymphocytes (%) (Auto) 31 % (24-48) Monocytes (%) (Auto) 11 % (0-9) Eosinophils (%) (Auto) 4 % (0-3) Basophils (%) (Auto) 1 % (0-3) Neutrophils # (Auto) 4.0 x10^3uL (1.8-7.7) Lymphocytes # (Auto) 2.4 x10^3/uL (1.0-4.8) Monocytes # (Auto) 0.8 x10^3/uL (0.0-1.1) Eosinophils # (Auto) 0.3 x10^3/uL (0.0-0.7) Basophils # (Auto) 0.1 x10^3/uL (0.0-0.2) Sodium Level 138 mmol/L (136-145) Potassium Level 4.1 mmol/L (3.5-5.1) Chloride Level 104 mmol/L (98-107) Carbon Dioxide Level 22 mmol/L (21-32) Anion Gap 12 (6-14) Blood Urea Nitrogen 9 mg/dL (7-20) Creatinine 0.9 mg/dL (0.6-1.0) Estimated GFR (Cockcroft-Gault) 82.7 Glucose Level 140 mg/dL (70-99) Calcium Level 8.8 mg/dL (8.5-10.1) Troponin I Quantitative < 0.017 ng/mL (0.000-0.055) Triglycerides Level 150 mg/dL (0-150) Cholesterol Level 201 mg/dL (0-200) LDL Cholesterol, Calculated 119 mg/dL (0-100) VLDL Cholesterol, Calculated 30 mg/dL (0-40) Non-HDL Cholesterol Calculated 149 mg/dL (0-129) HDL Cholesterol 52 mg/dL (40-60) Cholesterol/HDL Ratio 3.9 Test 07/19/16 11:55 Glucose (Fingerstick) 183 mg/dL (70-99) Laboratory Tests Test 07/18/16 13:24 07/18/16 13:50 07/18/16 14:25 07/18/16 17:32 White Blood Count 8.2 x10^3/uL (4.0-11.0) Red Blood Count 3.98 x10^6/uL (3.50-5.40) Hemoglobin 12.1 g/dL (12.0-15.5) Hematocrit 36.3 % (36.0-47.0) Mean Corpuscular Volume 91 fL (79-100) Mean Corpuscular Hemoglobin 31 pg (25-35) Mean Corpuscular Hemoglobin Concent 33 g/dL (31-37) Red Cell Distribution Width 15.7 % (11.5-14.5) Platelet Count 302 x10^3/uL (140-400) Neutrophils (%) (Auto) 63 % (31-73) Lymphocytes (%) (Auto) 26 % (24-48) Monocytes (%) (Auto) 7 % (0-9) Eosinophils (%) (Auto) 2 % (0-3) Basophils (%) (Auto) 1 % (0-3) Neutrophils # (Auto) 5.2 x10^3uL (1.8-7.7) Lymphocytes # (Auto) 2.2 x10^3/uL (1.0-4.8) Monocytes # (Auto) 0.6 x10^3/uL (0.0-1.1) Eosinophils # (Auto) 0.2 x10^3/uL (0.0-0.7) Basophils # (Auto) 0.1 x10^3/uL (0.0-0.2) Prothrombin Time 13.3 SEC (11.7-14.0) Prothromb Time International Ratio 1.1 (0.8-1.1) Activated Partial Thromboplast Time 31 SEC (24-38) Urine Color Yellow Urine Clarity Cloudy Urine pH 6.0 Urine Specific [place] >=1.030 Urine Protein 30 mg/dL (NEG-TRACE) Urine Glucose (UA) >=1000 mg/dL (NEG) Urine Ketones (Stick) Negative mg/dL (NEG) Urine Blood Negative (NEG) Urine Nitrite Negative (NEG) Urine Bilirubin Negative (NEG) Urine Urobilinogen Dipstick 1.0 mg/dL (0.2 mg/dL) Urine Leukocyte Esterase Negative (NEG) Urine RBC 0 /HPF (0-2) Urine WBC 0 /HPF (0-4) Urine Squamous Epithelial Cells Many /LPF Urine Bacteria 0 /HPF (0-FEW) Urine Mucus Mod /LPF Urine Yeast Present /HPF Urine Opiates Screen Neg (NEG) Urine Methadone Screen Neg (NEG) Urine Barbiturates Neg (NEG) Urine Phencyclidine Screen Neg (NEG) Urine Amphetamine/Methamphetamine Neg (NEG) Urine Benzodiazepines Screen Neg (NEG) Urine Cocaine Screen Pos (NEG) Urine Cannabinoids Screen Pos (NEG) Urine Ethyl Alcohol Neg (NEG) Sodium Level 139 mmol/L (136-145) Potassium Level 4.3 mmol/L (3.5-5.1) Chloride Level 104 mmol/L (98-107) Carbon Dioxide Level 25 mmol/L (21-32) Anion Gap 10 (6-14) Blood Urea Nitrogen 11 mg/dL (7-20) Creatinine 0.9 mg/dL (0.6-1.0) Estimated GFR (Cockcroft-Gault) 82.7 BUN/Creatinine Ratio 12 (6-20) Glucose Level 259 mg/dL (70-99) Calcium Level 8.6 mg/dL (8.5-10.1) Magnesium Level 1.8 mg/dL (1.8-2.4) Total Bilirubin 0.3 mg/dL (0.2-1.0) Aspartate Amino Transf (AST/SGOT) 25 U/L (15-37) Alanine Aminotransferase (ALT/SGPT) 26 U/L (14-59) Alkaline Phosphatase 72 U/L (46-116) Troponin I Quantitative < 0.017 ng/mL (0.000-0.055) Total Protein 7.3 g/dL (6.4-8.2) Albumin 3.5 g/dL (3.4-5.0) Albumin/Globulin Ratio 0.9 (1.0-1.7) Lipase 205 U/L (73-393) Glucose (Fingerstick) 191 mg/dL (70-99) Test 07/18/16 20:35 07/19/16 04:03 07/19/16 08:10 07/19/16 11:55 Glucose (Fingerstick) 224 mg/dL (70-99) 181 mg/dL (70-99) 183 mg/dL (70-99) White Blood Count 7.6 x10^3/uL (4.0-11.0) Red Blood Count 3.68 x10^6/uL (3.50-5.40) Hemoglobin 11.2 g/dL (12.0-15.5) Hematocrit 33.9 % (36.0-47.0) Mean Corpuscular Volume 92 fL (79-100) Mean Corpuscular Hemoglobin 31 pg (25-35) Mean Corpuscular Hemoglobin Concent 33 g/dL (31-37) Red Cell Distribution Width 16.1 % (11.5-14.5) Platelet Count 254 x10^3/uL (140-400) Neutrophils (%) (Auto) 53 % (31-73) Lymphocytes (%) (Auto) 31 % (24-48) Monocytes (%) (Auto) 11 % (0-9) Eosinophils (%) (Auto) 4 % (0-3) Basophils (%) (Auto) 1 % (0-3) Neutrophils # (Auto) 4.0 x10^3uL (1.8-7.7) Lymphocytes # (Auto) 2.4 x10^3/uL (1.0-4.8) Monocytes # (Auto) 0.8 x10^3/uL (0.0-1.1) Eosinophils # (Auto) 0.3 x10^3/uL (0.0-0.7) Basophils # (Auto) 0.1 x10^3/uL (0.0-0.2) Sodium Level 138 mmol/L (136-145) Potassium Level 4.1 mmol/L (3.5-5.1) Chloride Level 104 mmol/L (98-107) Carbon Dioxide Level 22 mmol/L (21-32) Anion Gap 12 (6-14) Blood Urea Nitrogen 9 mg/dL (7-20) Creatinine 0.9 mg/dL (0.6-1.0) Estimated GFR (Cockcroft-Gault) 82.7 Glucose Level 140 mg/dL (70-99) Calcium Level 8.8 mg/dL (8.5-10.1) Troponin I Quantitative < 0.017 ng/mL (0.000-0.055) Triglycerides Level 150 mg/dL (0-150) Cholesterol Level 201 mg/dL (0-200) LDL Cholesterol, Calculated 119 mg/dL (0-100) VLDL Cholesterol, Calculated 30 mg/dL (0-40) Non-HDL Cholesterol Calculated 149 mg/dL (0-129) HDL Cholesterol 52 mg/dL (40-60) Cholesterol/HDL Ratio 3.9 Medications Current Medications Sodium Chloride 1,000 ml @ 100 mls/hr Q10H IV Last administered on 07/18/16 13 :50; Start 07/18/16 at 13:26; Stop 07/18/16 at 23:25; Status DC Aspirin (Yenifer Aspirin) 325 mg 1X ONCE PO Last administered on 07/18/16 15:24 ; Start 07/18/16 at 14:45; Stop 07/18/16 at 14:49; Status DC Ondansetron HCl (Zofran) 4 mg PRN Q8HRS PRN IV NAUSEA/VOMITING; Start 07/18/16 at 15:00; Stop 07/19/16 at 14:59 Fentanyl Citrate (Fentanyl 2ml Vial) 50 mcg PRN Q2HR PRN IV PAIN; Start at 15:00; Stop 07/19/16 at 14:59 Sodium Chloride 1,000 ml @ 125 mls/hr Q8H IV ; Start 07/18/16 at 14:59; Stop 07/19/16 at 09:35; Status DC Acetaminophen (Tylenol) 650 mg PRN Q4HRS PRN PO FEVER; Start 07/18/16 at 15:00; Stop 07/19/16 at 14:59 Aspirin (Yenifer Aspirin) 325 mg DAILYWBKFT PO ; Start 07/19/16 at 08:00 Amlodipine Besylate (Norvasc) 10 mg DAILY PO ; Start 07/18/16 at 16:00 Aspirin (Children'S Aspirin) 81 mg DAILY PO ; Start 07/18/16 at 16:00; Stop at 09:35; Status DC Carvedilol (Coreg) 12.5 mg BIDWMEALS PO Last administered on 07/19/16 07:58; Start 07/18/16 at 17:00 Clopidogrel Bisulfate (Plavix) 75 mg DAILYWBKFT PO Last administered on 07:59; Start 07/18/16 at 16:00 Ferrous Sulfate (Feosol) 325 mg DAILY PO Last administered on 07/19/16 07:58; Start 07/18/16 at 16:00 Fluticasone Propionate (Flonase) 2 spray DAILY NS Last administered on 11:43; Start 07/19/16 at 09:00 Hydralazine HCl (Apresoline) 25 mg TID PO ; Start 07/18/16 at 16:00; Stop at 11:54; Status DC Acetaminophen/ Hydrocodone Bitart (Lortab 5/325) 1 tab PRN Q6HRS PRN PO PAIN Last administered on 07/19/16 11:48; Start 07/18/16 at 15:15 Isosorbide Mononitrate (Imdur) 30 mg DAILY PO Last administered on 07/19/16 11: 44; Start 07/18/16 at 16:00; Stop 07/19/16 at 11:54; Status DC Metformin HCl (Glucophage) 1,000 mg BIDWMEALS PO Last administered on 07/19/16 07:58; Start 07/18/16 at 17:00 Pantoprazole Sodium (Protonix) 40 mg DAILYAC PO Last administered on 07/19/16 07:59; Start 07/18/16 at 16:30 Atorvastatin Calcium (Lipitor) 10 mg QHS PO ; Start 07/18/16 at 21:00; Stop at 09:35; Status DC Sodium Chloride (Normal Saline Flush) 3 ml QSHIFT PRN IV AFTER MEDS AND BLOOD DRAWS; Start 07/18/16 at 15:15 Sodium Chloride 1,000 ml @ 100 mls/hr Q10H IV ; Start 07/18/16 at 15:10; Stop at 10:52; Status DC Aspirin (Ecotrin) 325 mg DAILYWBKFT PO Last administered on 07/19/16 07:58; Start 07/18/16 at 16:00; Stop 07/19/16 at 09:35; Status DC Atorvastatin Calcium (Lipitor) 20 mg QHS PO Last administered on 07/18/16 21:17 ; Start 07/18/16 at 21:00 Labetalol HCl (Normodyne) 10 mg PRN Q10MIN PRN IV HYPERTENSION, SEE COMMENTS; Start 07/18/16 at 15:15 Acetaminophen (Tylenol) 650 mg PRN Q6HRS PRN PO FEVER; Start 07/18/16 at 15:15; Stop 07/18/16 at 15:34; Status DC Acetaminophen (Acetaminophen Supp) 650 mg PRN Q6HRS PRN MI FEVER; Start at 15:15 Ondansetron HCl (Zofran) 4 mg PRN Q6HRS PRN IV NAUSEA/VOMITING; Start 07/18/16 at 15:15 Enoxaparin Sodium (Lovenox 40mg Syringe) 40 mg Q24H SQ Last administered on 07/18 18:32; Start 07/18/16 at 16:00 Hydralazine HCl (Apresoline) 10 mg PRN Q4HRS PRN IVP ELEVATED BP, SEE COMMENTS ; Start 07/18/16 at 15:30 Insulin Aspart (NovoLOG) 0-9 UNITS TIDWMEALS SQ Last administered on 07/19/16 08:16; Start 07/18/16 at 17:00 Dextrose (Dextrose 50%-Water Syringe) 12.5 gm PRN Q15MIN PRN IV SEE COMMENTS; Start 07/18/16 at 15:30 Nicotine (Nicoderm Cq 21mg) 1 patch PRN DAILY PRN TD SMOKING CESSATION; Start 07/18/16 at 15:30 Albuterol/ Ipratropium (Duoneb) 3 ml RTQID NEB Last administered on 07/19/16 11 :05; Start 07/18/16 at 16:00 Albuterol Sulfate (Ventolin Neb Soln) 2.5 mg PRN Q2HR PRN NEB SHORTNESS OF BREATH; Start 07/18/16 at 15:30 Guaifenesin (Mucinex) 600 mg BID PO Last administered on 6/2/17at 07:58; Start 07/18/16 at 21:00 Fluconazole (Diflucan) 200 mg 1X ONCE PO ; Start 07/19/16 at 12:00; Stop at 12:01; Status DC Tramadol HCl (Ultram) 50 mg PRN Q6HRS PRN PO PAIN MILD TO MOD; Start 07/19/16 at 12:00 Active Scripts Active Naproxen 500 Mg Tablet.dr 1 Tab PO BID [place] 5-325 Tablet (Acetaminophen/Hydrocodone Bitart) 1 Each Tablet 1-2 Tab PO Q4-6HRS Isosorbide Mononitrate Er (Isosorbide Mononitrate) 30 Mg Tab.er.24h 30 Mg PO DAILY Hydralazine Hcl 25 Mg Tablet 25 Mg PO TID Fluticasone Propionate Nasal [place] (Fluticasone Propionate) 16 Gm [place]ers.susp 2 [place]ers NS DAILY Amlodipine Besylate 5 Mg Tablet 10 Mg PO DAILY Pantoprazole Sodium 40 Mg Tablet.dr 40 Mg PO DAILYAC Coreg (Carvedilol) 12.5 Mg Tablet 12.5 Mg PO BIDWMEALS Lovastatin 40 Mg Tablet 40 Mg PO DAILY Metformin Hcl 1,000 Mg Tablet 1,000 Mg PO BID Clopidogrel (Clopidogrel Bisulfate) 75 Mg Tablet 75 Mg PO DAILYWBKFT Reported [depression pill] 1 Tab PO DAILY Iron Supplement (Ferrous Sulfate) 325 Mg Tablet 1 Tab PO DAILY Aspirin 81 Mg Tab.chew 1 Tab PO DAILY Vitals/I & O Vital Sign - Last 24 Hours 07/18/16 07/18/16 07/18/16 07/18/16 13:20 13:51 14:15 14:45 Temp 98.3 98.3 Pulse 82 75 82 72 Resp 16 20 22 27 B/P (MAP) 178/92 (120) 187/92 (123) 177/90 (119) 188/88 (121) Pulse Ox 99 99 100 99 O2 Delivery Room Air Room Air 07/18/16 07/18/16 07/18/16 07/18/16 16:00 16:00 17:35 17:35 Temp 98.2 98.2 98.2 98.2 Pulse 74 74 74 74 Resp 20 20 B/P (MAP) 170/93 170/93 170/93 (118) 170/93 (118) Pulse Ox 99 99 O2 Delivery Room Air Room Air 607/18/16 07/18/16 07/18/16 18:31 19:57 20:43 23:13 Temp 98.1 98.1 Pulse 74 82 Resp 18 B/P (MAP) 170/93 159/85 (109) Pulse Ox 99 99 O2 Delivery Room Air Room Air Room Air 07/18/16 07/19/16 07/19/16 07/19/16 23:41 03:37 07:32 07:58 Temp 98.2 99.0 98.2 99.0 Pulse 82 83 83 Resp 18 18 B/P (MAP) 149/91 (110) 150/87 (108) 150/87 Pulse Ox 100 100 99 O2 Delivery Room Air Room Air Room Air 07/19/16 07/19/16 07/19/16 07/19/16 07:59 10:35 11:06 11:44 Temp 97.7 98.1 97.7 98.1 Pulse 78 75 75 Resp 20 20 B/P (MAP) 175/99 (124) 181/104 (129) 181/104 Pulse Ox 98 99 O2 Delivery Room Air Room Air Room Air 07/19/16 11:48 Resp 20 O2 Delivery Room Air Intake and Output 07/18/16 07/18/16 07/19/16 15:00 23:00 07:00 Intake Total 150 ml 300 ml Balance 150 ml 300 ml TREE DUARTE MD Jul 19, 2016 13:25
[2016-07-19 15:00] VITALS: BP 133/73
[2016-07-19] MEDS: ENOXAPARIN 40 MG/0.4 ML SYRINGE. SQ SCH (18:01)
[2016-07-19] MEDS: ONDANSETRON PF 4 MG/2 ML VIAL. IV PRN (18:13)
[2016-07-19 19:58] VITALS: BP 134/75
[2016-07-19] MEDS: NICOTINE 21MG PATCH. TD PRN (20:22)
[2016-07-19] MEDS: ATORVASTATIN CALCIUM 40 MG TABLET. PO SCH (20:22)
[2016-07-19 23:36] VITALS: BP 134/82
[2016-07-20 03:31] VITALS: BP 120/69
[2016-07-20 07:00] VITALS: BP 169/98
[2016-07-20] MEDS: INSULIN ASPART 300 UNITS/3 ML INSULN.PEN SQ SCH ×3 (08:00→16:46)
[2016-07-20] MEDS: IPRATRPIUM/ALBUTEROL 0.5/2.5MG 3 ML NEBU. NEB SCH ×4 (08:11→20:08)
[2016-07-20 08:59] LABS: BASO # 0.1 x10^3/uL (0.0-0.2); BASO % 1 % (0-3); EOS % 3 % (0-3); HEMATOCRIT 32.9 % (36.0-47.0); HEMOGLOBIN 11.2 g/dL (12.0-15.5); LYMPH # 1.3 x10^3/uL (1.0-4.8); LYMPH % 19 % (24-48); MEAN CORPUSCULAR HEMOGLOBIN 31 pg (25-35); MEAN CORPUSCULAR HGB CONC 34 g/dL (31-37); MEAN CORPUSCULAR VOLUME 90 fL (79-100); MONO % 9 % (0-9); NEUT % 69 % (31-73); PLATELET COUNT 278 x10^3/uL (140-400); RED BLOOD COUNT 3.65 x10^6/uL (3.50-5.40); RED CELL DISTRIBUTION WIDTH 16.2 % (11.5-14.5)
[2016-07-20] MEDS: FLUTICASONE 50MCG/NASAL SPRAY 16GM BOTTLE. NS SCH ×2 (09:00→20:39)
[2016-07-20 09:06] LABS: CREATININE 0.9 mg/dL (0.6-1.0); GFR 82.7; POTASSIUM 4.1 mmol/L (3.5-5.1)
[2016-07-20] MEDS: ASPIRIN 325 MG TABLET PO SCH (09:12)
[2016-07-20] MEDS: FERROUS SULFATE 325 MG TABLET. PO SCH (09:13)
[2016-07-20] MEDS: CARVEDILOL 12.5 MG TABLET. PO SCH ×2 (09:13→16:41)
[2016-07-20] MEDS: CLOPIDOGREL BISULFATE 75 MG TABLET PO SCH (09:13)
[2016-07-20] MEDS: amLODIPine BESYLATE 10 MG TABLET PO SCH (09:13)
[2016-07-20] MEDS: PANTOPRAZOLE 40 MG TABLET.DR. PO SCH (09:14)
[2016-07-20] MEDS: ONDANSETRON PF 4 MG/2 ML VIAL. IV PRN (09:21)
[2016-07-20] MEDS: NICOTINE 21MG PATCH. TD PRN (10:05)
[2016-07-20 11:00] VITALS: BP 164/88
--- NOTE | 2016-07-20 11:07 | PDOC ---
PROGRESS NOTES Chief Complaint Chief Complaint 1. acute ischemic left basal ganglia stroke 2. HTN urgency 3. uncompliance wo insurance 4. h/o CVA wo deficit 5. h/o CAD with PCI 3 stents 6. dm2 7. obesity 8. drug abuse with marijuana daily, denies cocaine, but + in urine tox plan: fu with Neuro control HTN cont home meds, was on many HTN meds, which pt didnot take anyway, dc hydralazine and imdur. on ASA 325mg daily as per neuro, cont plavix mri brain done. echo, carotid US neg dvt ppx PTOT SW for medicaid and clinic referral check hba1c, lipid panel. increase lipitor to 40mg daily SSI ALBUTERol prn diflucan x1 for possible fungus vaginitis History of Present Illness History of Present Illness Up walking, but weak. Cant write. STILL right side weakness, leg is worse c/o right shoulder pain with rotator cuff tear history c/o vaginal discharge and pain high BP + headache Vitals Vitals Vital Signs Date Time Temp Pulse Resp B/P (MAP) Pulse Ox O2 Delivery O2 Flow Rate FiO2 07/20/16 09:13 82 169/98 07/20/16 08:11 Room Air 07/20/16 07:00 97.6 20 96 97.6 Physical Exam Physical Exam right arm strength 4/5, leg 2-3/5 General: Alert, Oriented X3, Cooperative Heart: Regular rate, Normal S1 Lungs: Clear Abdomen: Normal bowel sounds, Soft Extremities: No clubbing, No cyanosis Labs LABS Laboratory Tests Test 07/19/16 11:55 07/19/16 17:15 07/19/16 20:21 07/20/16 07:52 Glucose (Fingerstick) 183 mg/dL (70-99) 111 mg/dL (70-99) 116 mg/dL (70-99) 144 mg/dL (70-99) Test 07/20/16 08:20 White Blood Count 7.0 x10^3/uL (4.0-11.0) Red Blood Count 3.65 x10^6/uL (3.50-5.40) Hemoglobin 11.2 g/dL (12.0-15.5) Hematocrit 32.9 % (36.0-47.0) Mean Corpuscular Volume 90 fL (79-100) Mean Corpuscular Hemoglobin 31 pg (25-35) Mean Corpuscular Hemoglobin Concent 34 g/dL (31-37) Red Cell Distribution Width 16.2 % (11.5-14.5) Platelet Count 278 x10^3/uL (140-400) Neutrophils (%) (Auto) 69 % (31-73) Lymphocytes (%) (Auto) 19 % (24-48) Monocytes (%) (Auto) 9 % (0-9) Eosinophils (%) (Auto) 3 % (0-3) Basophils (%) (Auto) 1 % (0-3) Neutrophils # (Auto) 4.8 x10^3uL (1.8-7.7) Lymphocytes # (Auto) 1.3 x10^3/uL (1.0-4.8) Monocytes # (Auto) 0.6 x10^3/uL (0.0-1.1) Eosinophils # (Auto) 0.2 x10^3/uL (0.0-0.7) Basophils # (Auto) 0.1 x10^3/uL (0.0-0.2) Sodium Level 137 mmol/L (136-145) Potassium Level 4.1 mmol/L (3.5-5.1) Chloride Level 104 mmol/L (98-107) Carbon Dioxide Level 24 mmol/L (21-32) Anion Gap 9 (6-14) Blood Urea Nitrogen 9 mg/dL (7-20) Creatinine 0.9 mg/dL (0.6-1.0) Estimated GFR (Cockcroft-Gault) 82.7 Glucose Level 143 mg/dL (70-99) Calcium Level 9.0 mg/dL (8.5-10.1) Review of Systems Review of Systems co weakness co pain Assessment and Plan Assessmemt and Plan Problems Medical Problems: (1) Acute CVA (cerebrovascular accident) Status: Acute (2) Chest pain Status: Acute (3) Cocaine abuse Status: Acute (4) Hypertension Status: Acute (5) Noncompliance with medications Status: Acute (6) Type 2 diabetes mellitus Status: Acute 1. acute ischemic left basal ganglia stroke 2. HTN urgency 3. uncompliance wo insurance 4. h/o CVA wo deficit 5. h/o CAD with PCI 3 stents 6. dm2 7. obesity 8. drug abuse with marijuana daily, denies cocaine, but + in urine tox plan: fu with Neuro control HTN cont home meds, was on many HTN meds, which pt didnot take anyway, dc hydralazine and imdur. on ASA 325mg daily as per neuro, cont plavix mri brain done. echo, carotid US neg dvt ppx PTOT SW for medicaid and clinic referral check hba1c, lipid panel. increase lipitor to 40mg daily SSI ALBUTERol prn diflucan x1 for possible fungus vaginitis Problems: Comment Review of Relevant I have reviewed the following items cecilia (where applicable) has been applied. Labs Laboratory Tests Test 07/18/16 13:02 07/18/16 13:24 07/18/16 13:50 07/18/16 14:25 Bedside Urine HCG, Qualitative Hcg negative (Negative) White Blood Count 8.2 x10^3/uL (4.0-11.0) Red Blood Count 3.98 x10^6/uL (3.50-5.40) Hemoglobin 12.1 g/dL (12.0-15.5) Hematocrit 36.3 % (36.0-47.0) Mean Corpuscular Volume 91 fL (79-100) Mean Corpuscular Hemoglobin 31 pg (25-35) Mean Corpuscular Hemoglobin Concent 33 g/dL (31-37) Red Cell Distribution Width 15.7 % (11.5-14.5) Platelet Count 302 x10^3/uL (140-400) Neutrophils (%) (Auto) 63 % (31-73) Lymphocytes (%) (Auto) 26 % (24-48) Monocytes (%) (Auto) 7 % (0-9) Eosinophils (%) (Auto) 2 % (0-3) Basophils (%) (Auto) 1 % (0-3) Neutrophils # (Auto) 5.2 x10^3uL (1.8-7.7) Lymphocytes # (Auto) 2.2 x10^3/uL (1.0-4.8) Monocytes # (Auto) 0.6 x10^3/uL (0.0-1.1) Eosinophils # (Auto) 0.2 x10^3/uL (0.0-0.7) Basophils # (Auto) 0.1 x10^3/uL (0.0-0.2) Prothrombin Time 13.3 SEC (11.7-14.0) Prothromb Time International Ratio 1.1 (0.8-1.1) Activated Partial Thromboplast Time 31 SEC (24-38) Urine Color Yellow Urine Clarity Cloudy Urine pH 6.0 Urine Specific [place] >=1.030 Urine Protein 30 mg/dL (NEG-TRACE) Urine Glucose (UA) >=1000 mg/dL (NEG) Urine Ketones (Stick) Negative mg/dL (NEG) Urine Blood Negative (NEG) Urine Nitrite Negative (NEG) Urine Bilirubin Negative (NEG) Urine Urobilinogen Dipstick 1.0 mg/dL (0.2 mg/dL) Urine Leukocyte Esterase Negative (NEG) Urine RBC 0 /HPF (0-2) Urine WBC 0 /HPF (0-4) Urine Squamous Epithelial Cells Many /LPF Urine Bacteria 0 /HPF (0-FEW) Urine Mucus Mod /LPF Urine Yeast Present /HPF Urine Opiates Screen Neg (NEG) Urine Methadone Screen Neg (NEG) Urine Barbiturates Neg (NEG) Urine Phencyclidine Screen Neg (NEG) Urine Amphetamine/Methamphetamine Neg (NEG) Urine Benzodiazepines Screen Neg (NEG) Urine Cocaine Screen Pos (NEG) Urine Cannabinoids Screen Pos (NEG) Urine Ethyl Alcohol Neg (NEG) Sodium Level 139 mmol/L (136-145) Potassium Level 4.3 mmol/L (3.5-5.1) Chloride Level 104 mmol/L (98-107) Carbon Dioxide Level 25 mmol/L (21-32) Anion Gap 10 (6-14) Blood Urea Nitrogen 11 mg/dL (7-20) Creatinine 0.9 mg/dL (0.6-1.0) Estimated GFR (Cockcroft-Gault) 82.7 BUN/Creatinine Ratio 12 (6-20) Glucose Level 259 mg/dL (70-99) Calcium Level 8.6 mg/dL (8.5-10.1) Magnesium Level 1.8 mg/dL (1.8-2.4) Total Bilirubin 0.3 mg/dL (0.2-1.0) Aspartate Amino Transf (AST/SGOT) 25 U/L (15-37) Alanine Aminotransferase (ALT/SGPT) 26 U/L (14-59) Alkaline Phosphatase 72 U/L (46-116) Troponin I Quantitative < 0.017 ng/mL (0.000-0.055) Total Protein 7.3 g/dL (6.4-8.2) Albumin 3.5 g/dL (3.4-5.0) Albumin/Globulin Ratio 0.9 (1.0-1.7) Lipase 205 U/L (73-393) Test 07/18/16 17:32 07/18/16 20:35 07/19/16 04:03 07/19/16 08:10 Glucose (Fingerstick) 191 mg/dL (70-99) 224 mg/dL (70-99) 181 mg/dL (70-99) White Blood Count 7.6 x10^3/uL (4.0-11.0) Red Blood Count 3.68 x10^6/uL (3.50-5.40) Hemoglobin 11.2 g/dL (12.0-15.5) Hematocrit 33.9 % (36.0-47.0) Mean Corpuscular Volume 92 fL (79-100) Mean Corpuscular Hemoglobin 31 pg (25-35) Mean Corpuscular Hemoglobin Concent 33 g/dL (31-37) Red Cell Distribution Width 16.1 % (11.5-14.5) Platelet Count 254 x10^3/uL (140-400) Neutrophils (%) (Auto) 53 % (31-73) Lymphocytes (%) (Auto) 31 % (24-48) Monocytes (%) (Auto) 11 % (0-9) Eosinophils (%) (Auto) 4 % (0-3) Basophils (%) (Auto) 1 % (0-3) Neutrophils # (Auto) 4.0 x10^3uL (1.8-7.7) Lymphocytes # (Auto) 2.4 x10^3/uL (1.0-4.8) Monocytes # (Auto) 0.8 x10^3/uL (0.0-1.1) Eosinophils # (Auto) 0.3 x10^3/uL (0.0-0.7) Basophils # (Auto) 0.1 x10^3/uL (0.0-0.2) Sodium Level 138 mmol/L (136-145) Potassium Level 4.1 mmol/L (3.5-5.1) Chloride Level 104 mmol/L (98-107) Carbon Dioxide Level 22 mmol/L (21-32) Anion Gap 12 (6-14) Blood Urea Nitrogen 9 mg/dL (7-20) Creatinine 0.9 mg/dL (0.6-1.0) Estimated GFR (Cockcroft-Gault) 82.7 Glucose Level 140 mg/dL (70-99) Hemoglobin A1c 7.7 % (4.8-5.6) Calcium Level 8.8 mg/dL (8.5-10.1) Troponin I Quantitative < 0.017 ng/mL (0.000-0.055) Triglycerides Level 150 mg/dL (0-150) Cholesterol Level 201 mg/dL (0-200) LDL Cholesterol, Calculated 119 mg/dL (0-100) VLDL Cholesterol, Calculated 30 mg/dL (0-40) Non-HDL Cholesterol Calculated 149 mg/dL (0-129) HDL Cholesterol 52 mg/dL (40-60) Cholesterol/HDL Ratio 3.9 Test 07/19/16 11:55 07/19/16 17:15 07/19/16 20:21 07/20/16 07:52 Glucose (Fingerstick) 183 mg/dL (70-99) 111 mg/dL (70-99) 116 mg/dL (70-99) 144 mg/dL (70-99) Test 07/20/16 08:20 White Blood Count 7.0 x10^3/uL (4.0-11.0) Red Blood Count 3.65 x10^6/uL (3.50-5.40) Hemoglobin 11.2 g/dL (12.0-15.5) Hematocrit 32.9 % (36.0-47.0) Mean Corpuscular Volume 90 fL (79-100) Mean Corpuscular Hemoglobin 31 pg (25-35) Mean Corpuscular Hemoglobin Concent 34 g/dL (31-37) Red Cell Distribution Width 16.2 % (11.5-14.5) Platelet Count 278 x10^3/uL (140-400) Neutrophils (%) (Auto) 69 % (31-73) Lymphocytes (%) (Auto) 19 % (24-48) Monocytes (%) (Auto) 9 % (0-9) Eosinophils (%) (Auto) 3 % (0-3) Basophils (%) (Auto) 1 % (0-3) Neutrophils # (Auto) 4.8 x10^3uL (1.8-7.7) Lymphocytes # (Auto) 1.3 x10^3/uL (1.0-4.8) Monocytes # (Auto) 0.6 x10^3/uL (0.0-1.1) Eosinophils # (Auto) 0.2 x10^3/uL (0.0-0.7) Basophils # (Auto) 0.1 x10^3/uL (0.0-0.2) Sodium Level 137 mmol/L (136-145) Potassium Level 4.1 mmol/L (3.5-5.1) Chloride Level 104 mmol/L (98-107) Carbon Dioxide Level 24 mmol/L (21-32) Anion Gap 9 (6-14) Blood Urea Nitrogen 9 mg/dL (7-20) Creatinine 0.9 mg/dL (0.6-1.0) Estimated GFR (Cockcroft-Gault) 82.7 Glucose Level 143 mg/dL (70-99) Calcium Level 9.0 mg/dL (8.5-10.1) Laboratory Tests Test 07/19/16 11:55 07/19/16 17:15 07/19/16 20:21 07/20/16 07:52 Glucose (Fingerstick) 183 mg/dL (70-99) 111 mg/dL (70-99) 116 mg/dL (70-99) 144 mg/dL (70-99) Test 07/20/16 08:20 White Blood Count 7.0 x10^3/uL (4.0-11.0) Red Blood Count 3.65 x10^6/uL (3.50-5.40) Hemoglobin 11.2 g/dL (12.0-15.5) Hematocrit 32.9 % (36.0-47.0) Mean Corpuscular Volume 90 fL (79-100) Mean Corpuscular Hemoglobin 31 pg (25-35) Mean Corpuscular Hemoglobin Concent 34 g/dL (31-37) Red Cell Distribution Width 16.2 % (11.5-14.5) Platelet Count 278 x10^3/uL (140-400) Neutrophils (%) (Auto) 69 % (31-73) Lymphocytes (%) (Auto) 19 % (24-48) Monocytes (%) (Auto) 9 % (0-9) Eosinophils (%) (Auto) 3 % (0-3) Basophils (%) (Auto) 1 % (0-3) Neutrophils # (Auto) 4.8 x10^3uL (1.8-7.7) Lymphocytes # (Auto) 1.3 x10^3/uL (1.0-4.8) Monocytes # (Auto) 0.6 x10^3/uL (0.0-1.1) Eosinophils # (Auto) 0.2 x10^3/uL (0.0-0.7) Basophils # (Auto) 0.1 x10^3/uL (0.0-0.2) Sodium Level 137 mmol/L (136-145) Potassium Level 4.1 mmol/L (3.5-5.1) Chloride Level 104 mmol/L (98-107) Carbon Dioxide Level 24 mmol/L (21-32) Anion Gap 9 (6-14) Blood Urea Nitrogen 9 mg/dL (7-20) Creatinine 0.9 mg/dL (0.6-1.0) Estimated GFR (Cockcroft-Gault) 82.7 Glucose Level 143 mg/dL (70-99) Calcium Level 9.0 mg/dL (8.5-10.1) Medications Current Medications Sodium Chloride 1,000 ml @ 100 mls/hr Q10H IV Last administered on 07/18/16 13 :50; Start 07/18/16 at 13:26; Stop 07/18/16 at 23:25; Status DC Aspirin (Yenifer Aspirin) 325 mg 1X ONCE PO Last administered on 07/18/16 15:24 ; Start 07/18/16 at 14:45; Stop 07/18/16 at 14:49; Status DC Ondansetron HCl (Zofran) 4 mg PRN Q8HRS PRN IV NAUSEA/VOMITING; Start 07/18/16 at 15:00; Stop 07/19/16 at 14:59; Status DC Fentanyl Citrate (Fentanyl 2ml Vial) 50 mcg PRN Q2HR PRN IV PAIN; Start at 15:00; Stop 07/19/16 at 14:59; Status DC Sodium Chloride 1,000 ml @ 125 mls/hr Q8H IV ; Start 07/18/16 at 14:59; Stop 07/19/16 at 09:35; Status DC Acetaminophen (Tylenol) 650 mg PRN Q4HRS PRN PO FEVER; Start 07/18/16 at 15:00; Stop 07/19/16 at 14:59; Status DC Aspirin (Yenifer Aspirin) 325 mg DAILYWBKFT PO Last administered on 07/20/16 09: 12; Start 07/19/16 at 08:00 Amlodipine Besylate (Norvasc) 10 mg DAILY PO Last administered on 07/20/16 09: 13; Start 07/18/16 at 16:00 Aspirin (Children'S Aspirin) 81 mg DAILY PO ; Start 07/18/16 at 16:00; Stop at 09:35; Status DC Carvedilol (Coreg) 12.5 mg BIDWMEALS PO Last administered on 07/20/16 09:13; Start 07/18/16 at 17:00 Clopidogrel Bisulfate (Plavix) 75 mg DAILYWBKFT PO Last administered on 09:13; Start 07/18/16 at 16:00 Ferrous Sulfate (Feosol) 325 mg DAILY PO Last administered on 07/20/16 09:13; Start 07/18/16 at 16:00 Fluticasone Propionate (Flonase) 2 spray DAILY NS Last administered on 11:43; Start 07/19/16 at 09:00 Hydralazine HCl (Apresoline) 25 mg TID PO ; Start 07/18/16 at 16:00; Stop at 11:54; Status DC Acetaminophen/ Hydrocodone Bitart (Lortab 5/325) 1 tab PRN Q6HRS PRN PO PAIN Last administered on 07/19/16 20:22; Start 07/18/16 at 15:15 Isosorbide Mononitrate (Imdur) 30 mg DAILY PO Last administered on 07/19/16 11: 44; Start 07/18/16 at 16:00; Stop 07/19/16 at 11:54; Status DC Metformin HCl (Glucophage) 1,000 mg BIDWMEALS PO Last administered on 07/20/16 09:14; Start 07/18/16 at 17:00 Pantoprazole Sodium (Protonix) 40 mg DAILYAC PO Last administered on 07/20/16 09:14; Start 07/18/16 at 16:30 Atorvastatin Calcium (Lipitor) 10 mg QHS PO ; Start 07/18/16 at 21:00; Stop at 09:35; Status DC Sodium Chloride (Normal Saline Flush) 3 ml QSHIFT PRN IV AFTER MEDS AND BLOOD DRAWS; Start 07/18/16 at 15:15 Sodium Chloride 1,000 ml @ 100 mls/hr Q10H IV ; Start 07/18/16 at 15:10; Stop at 10:52; Status DC Aspirin (Ecotrin) 325 mg DAILYWBKFT PO Last administered on 07/19/16 07:58; Start 07/18/16 at 16:00; Stop 07/19/16 at 09:35; Status DC Atorvastatin Calcium (Lipitor) 20 mg QHS PO Last administered on 07/18/16 21:17 ; Start 07/18/16 at 21:00; Stop 07/19/16 at 13:24; Status DC Labetalol HCl (Normodyne) 10 mg PRN Q10MIN PRN IV HYPERTENSION, SEE COMMENTS; Start 07/18/16 at 15:15 Acetaminophen (Tylenol) 650 mg PRN Q6HRS PRN PO FEVER; Start 07/18/16 at 15:15; Stop 07/18/16 at 15:34; Status DC Acetaminophen (Acetaminophen Supp) 650 mg PRN Q6HRS PRN [place] FEVER; Start at 15:15 Ondansetron HCl (Zofran) 4 mg PRN Q6HRS PRN IV NAUSEA/VOMITING Last administered on 07/20/16 09:21; Start 07/18/16 at 15:15 Enoxaparin Sodium (Lovenox 40mg Syringe) 40 mg Q24H SQ Last administered on 07/19 18:01; Start 07/18/16 at 16:00 Hydralazine HCl (Apresoline) 10 mg PRN Q4HRS PRN IVP ELEVATED BP, SEE COMMENTS ; Start 07/18/16 at 15:30 Insulin Aspart (NovoLOG) 0-9 UNITS TIDWMEALS SQ Last administered on 07/19/16 13:43; Start 07/18/16 at 17:00 Dextrose (Dextrose 50%-Water Syringe) 12.5 gm PRN Q15MIN PRN IV SEE COMMENTS; Start 07/18/16 at 15:30 Nicotine (Nicoderm Cq 21mg) 1 patch PRN DAILY PRN TD SMOKING CESSATION Last administered on 07/20/16 10:05; Start 07/18/16 at 15:30 Albuterol/ Ipratropium (Duoneb) 3 ml RTQID NEB Last administered on 07/20/16 08 :11; Start 07/18/16 at 16:00 Albuterol Sulfate (Ventolin Neb Soln) 2.5 mg PRN Q2HR PRN NEB SHORTNESS OF BREATH; Start 07/18/16 at 15:30 Guaifenesin (Mucinex) 600 mg BID PO Last administered on 07/20/16 09:13; Start 07/18/16 at 21:00 Fluconazole (Diflucan) 200 mg 1X ONCE PO Last administered on 07/19/16 13:41; Start 07/19/16 at 12:00; Stop 07/19/16 at 12:01; Status DC Tramadol HCl (Ultram) 50 mg PRN Q6HRS PRN PO PAIN MILD TO MOD; Start 07/19/16 at 12:00 Atorvastatin Calcium (Lipitor) 40 mg QHS PO Last administered on 07/19/16 20:22 ; Start 07/19/16 at 21:00 Active Scripts Active Naproxen 500 Mg Tablet.dr 1 Tab PO BID [place] 5-325 Tablet (Acetaminophen/Hydrocodone Bitart) 1 Each Tablet 1-2 Tab PO Q4-6HRS Isosorbide Mononitrate Er (Isosorbide Mononitrate) 30 Mg Tab.er.24h 30 Mg PO DAILY Hydralazine Hcl 25 Mg Tablet 25 Mg PO TID Fluticasone Propionate Nasal [place] (Fluticasone Propionate) 16 Gm [place].susp 2 [place] NS DAILY Amlodipine Besylate 5 Mg Tablet 10 Mg PO DAILY Pantoprazole Sodium 40 Mg Tablet.dr 40 Mg PO DAILYAC Coreg (Carvedilol) 12.5 Mg Tablet 12.5 Mg PO BIDWMEALS Lovastatin 40 Mg Tablet 40 Mg PO DAILY Metformin Hcl 1,000 Mg Tablet 1,000 Mg PO BID Clopidogrel (Clopidogrel Bisulfate) 75 Mg Tablet 75 Mg PO DAILYWBKFT Reported [depression pill] 1 Tab PO DAILY Iron Supplement (Ferrous Sulfate) 325 Mg Tablet 1 Tab PO DAILY Aspirin 81 Mg Tab.chew 1 Tab PO DAILY Vitals/I & O Vital Sign - Last 24 Hours 07/19/16 07/19/16 07/19/16 07/19/16 11:06 11:44 11:48 12:48 Pulse 75 Resp 20 20 B/P (MAP) 181/104 O2 Delivery Room Air Room Air Room Air 07/19/16 07/19/16 07/19/16 07/19/16 15:00 15:23 19:58 20:00 Temp 97.7 98.1 97.7 98.1 Pulse 83 71 Resp 20 20 B/P (MAP) 133/73 (93) 134/75 (94) Pulse Ox 100 99 O2 Delivery Room Air Room Air Room Air Room Air 07/19/16 07/19/16 07/20/16 07/20/16 20:09 23:36 03:31 07:00 Temp 98.8 98.1 97.6 98.8 98.1 97.6 Pulse 85 80 82 Resp 16 16 20 B/P (MAP) 134/82 (99) 120/69 (86) 169/98 (121) Pulse Ox 99 99 96 O2 Delivery Room Air Room Air Room Air Room Air 07/20/16 07/20/16 07/20/16 07/20/16 08:00 08:11 09:13 09:13 Pulse 82 82 B/P (MAP) 169/98 169/98 O2 Delivery Room Air Room Air Intake and Output 07/19/16 07/19/16 07/20/16 15:00 23:00 07:00 Intake Total 120 ml 600 ml Balance 120 ml 600 ml BYRON DINH III DO Jul 20, 2016 11:07
[2016-07-20 15:00] VITALS: BP 136/84
--- NOTE | 2016-07-20 15:53 | PDOC ---
PROGRESS NOTES Assessment Problems Medical Problems: (1) Acute CVA (cerebrovascular accident) Status: Acute (2) Chest pain Status: Acute (3) Cocaine abuse Status: Acute (4) Hypertension Status: Acute (5) Noncompliance with medications Status: Acute (6) Type 2 diabetes mellitus Status: Acute Left basal ganglia lacunar stroke already apparent on the head CT related to her known hypertension and diabetes. MRI brain shows multiple other acute white matter infarcts consistent with her history of hypertension, diabetes, and cocaine use. Chronic white matter abnormalities, given her use of cocaine, hypertension, and diabetes, these are much more likely to be related to cerebrovascular disease than multiple sclerosis. Plan Blood pressure and diabetic control Statin Rehabilitation modalities Aspirin Observe over weekend No need for workup for multiple sclerosis Subjective She wants to go home today but after discussion she is willing to stay through the weekend to make sure that she has received full rehabilitation modalities. Objective Vital Signs Date Time Temp Pulse Resp B/P (MAP) Pulse Ox O2 Delivery O2 Flow Rate FiO2 07/20/16 15:00 97.4 85 20 136/84 (101) 99 Room Air 97.4 Intake and Output 07/20/16 07:00 Intake Total 720 ml Balance 720 ml Intake Oral 720 ml # Voids 4 PHYSICAL EXAM Alert. Oriented to time, place and person. PERRL. EOMI. CN: no focal findings. Muscle tone: normal. Muscle strength: 5-/5 on right, 5/5 on left DTR: 1+ Plantar reflex: flexor Gait: does well, but needs walker Sensory exam: no abnormal findings. No cerebellar signs elicited. Review of Relevant I have reviewed the following items cecilia (where applicable) has been applied. Labs Laboratory Tests Test 07/18/16 17:32 07/18/16 20:35 07/19/16 04:03 07/19/16 08:10 Glucose (Fingerstick) 191 mg/dL (70-99) 224 mg/dL (70-99) 181 mg/dL (70-99) White Blood Count 7.6 x10^3/uL (4.0-11.0) Red Blood Count 3.68 x10^6/uL (3.50-5.40) Hemoglobin 11.2 g/dL (12.0-15.5) Hematocrit 33.9 % (36.0-47.0) Mean Corpuscular Volume 92 fL (79-100) Mean Corpuscular Hemoglobin 31 pg (25-35) Mean Corpuscular Hemoglobin Concent 33 g/dL (31-37) Red Cell Distribution Width 16.1 % (11.5-14.5) Platelet Count 254 x10^3/uL (140-400) Neutrophils (%) (Auto) 53 % (31-73) Lymphocytes (%) (Auto) 31 % (24-48) Monocytes (%) (Auto) 11 % (0-9) Eosinophils (%) (Auto) 4 % (0-3) Basophils (%) (Auto) 1 % (0-3) Neutrophils # (Auto) 4.0 x10^3uL (1.8-7.7) Lymphocytes # (Auto) 2.4 x10^3/uL (1.0-4.8) Monocytes # (Auto) 0.8 x10^3/uL (0.0-1.1) Eosinophils # (Auto) 0.3 x10^3/uL (0.0-0.7) Basophils # (Auto) 0.1 x10^3/uL (0.0-0.2) Sodium Level 138 mmol/L (136-145) Potassium Level 4.1 mmol/L (3.5-5.1) Chloride Level 104 mmol/L (98-107) Carbon Dioxide Level 22 mmol/L (21-32) Anion Gap 12 (6-14) Blood Urea Nitrogen 9 mg/dL (7-20) Creatinine 0.9 mg/dL (0.6-1.0) Estimated GFR (Cockcroft-Gault) 82.7 Glucose Level 140 mg/dL (70-99) Hemoglobin A1c 7.7 % (4.8-5.6) Calcium Level 8.8 mg/dL (8.5-10.1) Troponin I Quantitative < 0.017 ng/mL (0.000-0.055) Triglycerides Level 150 mg/dL (0-150) Cholesterol Level 201 mg/dL (0-200) LDL Cholesterol, Calculated 119 mg/dL (0-100) VLDL Cholesterol, Calculated 30 mg/dL (0-40) Non-HDL Cholesterol Calculated 149 mg/dL (0-129) HDL Cholesterol 52 mg/dL (40-60) Cholesterol/HDL Ratio 3.9 Test 07/19/16 11:55 07/19/16 17:15 07/19/16 20:21 07/20/16 07:52 Glucose (Fingerstick) 183 mg/dL (70-99) 111 mg/dL (70-99) 116 mg/dL (70-99) 144 mg/dL (70-99) Test 07/20/16 08:20 07/20/16 11:36 White Blood Count 7.0 x10^3/uL (4.0-11.0) Red Blood Count 3.65 x10^6/uL (3.50-5.40) Hemoglobin 11.2 g/dL (12.0-15.5) Hematocrit 32.9 % (36.0-47.0) Mean Corpuscular Volume 90 fL (79-100) Mean Corpuscular Hemoglobin 31 pg (25-35) Mean Corpuscular Hemoglobin Concent 34 g/dL (31-37) Red Cell Distribution Width 16.2 % (11.5-14.5) Platelet Count 278 x10^3/uL (140-400) Neutrophils (%) (Auto) 69 % (31-73) Lymphocytes (%) (Auto) 19 % (24-48) Monocytes (%) (Auto) 9 % (0-9) Eosinophils (%) (Auto) 3 % (0-3) Basophils (%) (Auto) 1 % (0-3) Neutrophils # (Auto) 4.8 x10^3uL (1.8-7.7) Lymphocytes # (Auto) 1.3 x10^3/uL (1.0-4.8) Monocytes # (Auto) 0.6 x10^3/uL (0.0-1.1) Eosinophils # (Auto) 0.2 x10^3/uL (0.0-0.7) Basophils # (Auto) 0.1 x10^3/uL (0.0-0.2) Sodium Level 137 mmol/L (136-145) Potassium Level 4.1 mmol/L (3.5-5.1) Chloride Level 104 mmol/L (98-107) Carbon Dioxide Level 24 mmol/L (21-32) Anion Gap 9 (6-14) Blood Urea Nitrogen 9 mg/dL (7-20) Creatinine 0.9 mg/dL (0.6-1.0) Estimated GFR (Cockcroft-Gault) 82.7 Glucose Level 143 mg/dL (70-99) Calcium Level 9.0 mg/dL (8.5-10.1) Glucose (Fingerstick) 188 mg/dL (70-99) Laboratory Tests Test 07/19/16 17:15 07/19/16 20:21 07/20/16 07:52 07/20/16 08:20 Glucose (Fingerstick) 111 mg/dL (70-99) 116 mg/dL (70-99) 144 mg/dL (70-99) White Blood Count 7.0 x10^3/uL (4.0-11.0) Red Blood Count 3.65 x10^6/uL (3.50-5.40) Hemoglobin 11.2 g/dL (12.0-15.5) Hematocrit 32.9 % (36.0-47.0) Mean Corpuscular Volume 90 fL (79-100) Mean Corpuscular Hemoglobin 31 pg (25-35) Mean Corpuscular Hemoglobin Concent 34 g/dL (31-37) Red Cell Distribution Width 16.2 % (11.5-14.5) Platelet Count 278 x10^3/uL (140-400) Neutrophils (%) (Auto) 69 % (31-73) Lymphocytes (%) (Auto) 19 % (24-48) Monocytes (%) (Auto) 9 % (0-9) Eosinophils (%) (Auto) 3 % (0-3) Basophils (%) (Auto) 1 % (0-3) Neutrophils # (Auto) 4.8 x10^3uL (1.8-7.7) Lymphocytes # (Auto) 1.3 x10^3/uL (1.0-4.8) Monocytes # (Auto) 0.6 x10^3/uL (0.0-1.1) Eosinophils # (Auto) 0.2 x10^3/uL (0.0-0.7) Basophils # (Auto) 0.1 x10^3/uL (0.0-0.2) Sodium Level 137 mmol/L (136-145) Potassium Level 4.1 mmol/L (3.5-5.1) Chloride Level 104 mmol/L (98-107) Carbon Dioxide Level 24 mmol/L (21-32) Anion Gap 9 (6-14) Blood Urea Nitrogen 9 mg/dL (7-20) Creatinine 0.9 mg/dL (0.6-1.0) Estimated GFR (Cockcroft-Gault) 82.7 Glucose Level 143 mg/dL (70-99) Calcium Level 9.0 mg/dL (8.5-10.1) Test 07/20/16 11:36 Glucose (Fingerstick) 188 mg/dL (70-99) Medications Current Medications Sodium Chloride 1,000 ml @ 100 mls/hr Q10H IV Last administered on 07/18/16 13 :50; Start 07/18/16 at 13:26; Stop 07/18/16 at 23:25; Status DC Aspirin ([employer] Aspirin) 325 mg 1X ONCE PO Last administered on 07/18/16 15:24 ; Start 07/18/16 at 14:45; Stop 07/18/16 at 14:49; Status DC Ondansetron HCl (Zofran) 4 mg PRN Q8HRS PRN IV NAUSEA/VOMITING; Start 07/18/16 at 15:00; Stop 07/19/16 at 14:59; Status DC Fentanyl Citrate (Fentanyl 2ml Vial) 50 mcg PRN Q2HR PRN IV PAIN; Start at 15:00; Stop 07/19/16 at 14:59; Status DC Sodium Chloride 1,000 ml @ 125 mls/hr Q8H IV ; Start 07/18/16 at 14:59; Stop 07/19/16 at 09:35; Status DC Acetaminophen (Tylenol) 650 mg PRN Q4HRS PRN PO FEVER; Start 07/18/16 at 15:00; Stop 07/19/16 at 14:59; Status DC Aspirin ([employer] Aspirin) 325 mg DAILYWBKFT PO Last administered on 07/20/16 09: 12; Start 07/19/16 at 08:00 Amlodipine Besylate (Norvasc) 10 mg DAILY PO Last administered on 07/20/16 09: 13; Start 07/18/16 at 16:00 Aspirin (Children'S Aspirin) 81 mg DAILY PO ; Start 07/18/16 at 16:00; Stop at 09:35; Status DC Carvedilol (Coreg) 12.5 mg BIDWMEALS PO Last administered on 07/20/16 09:13; Start 07/18/16 at 17:00 Clopidogrel Bisulfate (Plavix) 75 mg DAILYWBKFT PO Last administered on 09:13; Start 07/18/16 at 16:00 Ferrous Sulfate (Feosol) 325 mg DAILY PO Last administered on 07/20/16 09:13; Start 07/18/16 at 16:00 Fluticasone Propionate (Flonase) 2 spray DAILY NS Last administered on 11:43; Start 07/19/16 at 09:00 Hydralazine HCl (Apresoline) 25 mg TID PO ; Start 07/18/16 at 16:00; Stop at 11:54; Status DC Acetaminophen/ Hydrocodone Bitart (Lortab 5/325) 1 tab PRN Q6HRS PRN PO PAIN Last administered on 07/19/16 20:22; Start 07/18/16 at 15:15 Isosorbide Mononitrate (Imdur) 30 mg DAILY PO Last administered on 07/19/16 11: 44; Start 07/18/16 at 16:00; Stop 07/19/16 at 11:54; Status DC Metformin HCl (Glucophage) 1,000 mg BIDWMEALS PO Last administered on 07/20/16 09:14; Start 07/18/16 at 17:00 Pantoprazole Sodium (Protonix) 40 mg DAILYAC PO Last administered on 07/20/16 09:14; Start 07/18/16 at 16:30 Atorvastatin Calcium (Lipitor) 10 mg QHS PO ; Start 07/18/16 at 21:00; Stop at 09:35; Status DC Sodium Chloride (Normal Saline Flush) 3 ml QSHIFT PRN IV AFTER MEDS AND BLOOD DRAWS; Start 07/18/16 at 15:15 Sodium Chloride 1,000 ml @ 100 mls/hr Q10H IV ; Start 07/18/16 at 15:10; Stop at 10:52; Status DC Aspirin (Ecotrin) 325 mg DAILYWBKFT PO Last administered on 07/19/16 07:58; Start 07/18/16 at 16:00; Stop 07/19/16 at 09:35; Status DC Atorvastatin Calcium (Lipitor) 20 mg QHS PO Last administered on 07/18/16 21:17 ; Start 07/18/16 at 21:00; Stop 07/19/16 at 13:24; Status DC Labetalol HCl (Normodyne) 10 mg PRN Q10MIN PRN IV HYPERTENSION, SEE COMMENTS; Start 07/18/16 at 15:15 Acetaminophen (Tylenol) 650 mg PRN Q6HRS PRN PO FEVER; Start 07/18/16 at 15:15; Stop 07/18/16 at 15:34; Status DC Acetaminophen (Acetaminophen Supp) 650 mg PRN Q6HRS PRN [place] FEVER; Start at 15:15 Ondansetron HCl (Zofran) 4 mg PRN Q6HRS PRN IV NAUSEA/VOMITING Last administered on 07/20/16 09:21; Start 07/18/16 at 15:15 Enoxaparin Sodium (Lovenox 40mg Syringe) 40 mg Q24H SQ Last administered on 07/19 18:01; Start 07/18/16 at 16:00 Hydralazine HCl (Apresoline) 10 mg PRN Q4HRS PRN IVP ELEVATED BP, SEE COMMENTS ; Start 07/18/16 at 15:30 Insulin Aspart (NovoLOG) 0-9 UNITS TIDWMEALS SQ Last administered on 07/20/16 12:29; Start 07/18/16 at 17:00 Dextrose (Dextrose 50%-Water Syringe) 12.5 gm PRN Q15MIN PRN IV SEE COMMENTS; Start 07/18/16 at 15:30 Nicotine (Nicoderm Cq 21mg) 1 patch PRN DAILY PRN TD SMOKING CESSATION Last administered on 07/20/16 10:05; Start 07/18/16 at 15:30 Albuterol/ Ipratropium (Duoneb) 3 ml RTQID NEB Last administered on 07/20/16 11 :29; Start 07/18/16 at 16:00 Albuterol Sulfate (Ventolin Neb Soln) 2.5 mg PRN Q2HR PRN NEB SHORTNESS OF BREATH; Start 07/18/16 at 15:30 Guaifenesin (Mucinex) 600 mg BID PO Last administered on 07/20/16 09:13; Start 07/18/16 at 21:00 Fluconazole (Diflucan) 200 mg 1X ONCE PO Last administered on 07/19/16 13:41; Start 07/19/16 at 12:00; Stop 07/19/16 at 12:01; Status DC Tramadol HCl (Ultram) 50 mg PRN Q6HRS PRN PO PAIN MILD TO MOD; Start 07/19/16 at 12:00 Atorvastatin Calcium (Lipitor) 40 mg QHS PO Last administered on 07/19/16 20:22 ; Start 07/19/16 at 21:00 Active Scripts Active Naproxen 500 Mg Tablet.dr 1 Tab PO BID [place] 5-325 Tablet (Acetaminophen/Hydrocodone Bitart) 1 Each Tablet 1-2 Tab PO Q4-6HRS Isosorbide Mononitrate Er (Isosorbide Mononitrate) 30 Mg Tab.er.24h 30 Mg PO DAILY Hydralazine Hcl 25 Mg Tablet 25 Mg PO TID Fluticasone Propionate Nasal [place] (Fluticasone Propionate) 16 Gm [place].susp 2 [place] NS DAILY Amlodipine Besylate 5 Mg Tablet 10 Mg PO DAILY Pantoprazole Sodium 40 Mg Tablet.dr 40 Mg PO DAILYAC Coreg (Carvedilol) 12.5 Mg Tablet 12.5 Mg PO BIDWMEALS Lovastatin 40 Mg Tablet 40 Mg PO DAILY Metformin Hcl 1,000 Mg Tablet 1,000 Mg PO BID Clopidogrel (Clopidogrel Bisulfate) 75 Mg Tablet 75 Mg PO DAILYWBKFT Reported [depression pill] 1 Tab PO DAILY Iron Supplement (Ferrous Sulfate) 325 Mg Tablet 1 Tab PO DAILY Aspirin 81 Mg Tab.chew 1 Tab PO DAILY Vitals/I & O Vital Sign - Last 24 Hours 07/19/16 07/19/16 07/19/16 07/19/16 19:58 20:00 20:09 23:36 Temp 98.1 98.8 98.1 98.8 Pulse 71 85 Resp 20 16 B/P (MAP) 134/75 (94) 134/82 (99) Pulse Ox 99 99 O2 Delivery Room Air Room Air Room Air Room Air 07/20/16 07/20/16 07/20/16 07/20/16 03:31 07:00 08:00 08:11 Temp 98.1 97.6 98.1 97.6 Pulse 80 82 Resp 16 20 B/P (MAP) 120/69 (86) 169/98 (121) Pulse Ox 99 96 O2 Delivery Room Air Room Air Room Air Room Air 07/20/16 07/20/16 07/20/16 07/20/16 09:13 09:13 11:00 11:29 Temp 97.7 97.7 Pulse 82 82 85 Resp 20 B/P (MAP) 169/98 169/98 164/88 (113) Pulse Ox 97 O2 Delivery Room Air Room Air 07/20/16 15:00 Temp 97.4 97.4 Pulse 85 Resp 20 B/P (MAP) 136/84 (101) Pulse Ox 99 O2 Delivery Room Air Intake and Output 07/19/16 07/19/16 07/20/16 15:00 23:00 07:00 Intake Total 120 ml 600 ml Balance 120 ml 600 ml CAT DORADO MD Jul 20, 2016 15:53
[2016-07-20] MEDS: ENOXAPARIN 40 MG/0.4 ML SYRINGE. SQ SCH (16:41)
[2016-07-20 19:20] VITALS: BP 162/101
[2016-07-20] MEDS: ATORVASTATIN CALCIUM 40 MG TABLET. PO SCH (20:38)
[2016-07-20 23:15] VITALS: BP 173/96
[2016-07-21 03:41] VITALS: BP 150/90
[2016-07-21 07:00] VITALS: BP 139/82
[2016-07-21] MEDS: IPRATRPIUM/ALBUTEROL 0.5/2.5MG 3 ML NEBU. NEB SCH ×4 (08:00→20:25)
[2016-07-21] MEDS: ONDANSETRON PF 4 MG/2 ML VIAL. IV PRN (09:03)
[2016-07-21] MEDS: HYDROcodone/APAP 5/325MG 1 TAB TABLET PO PRN (09:07)
[2016-07-21] MEDS: amLODIPine BESYLATE 10 MG TABLET PO SCH (09:08)
[2016-07-21] MEDS: ASPIRIN 325 MG TABLET PO SCH (09:08)
[2016-07-21] MEDS: PANTOPRAZOLE 40 MG TABLET.DR. PO SCH (09:08)
[2016-07-21] MEDS: CLOPIDOGREL BISULFATE 75 MG TABLET PO SCH (09:09)
[2016-07-21] MEDS: FERROUS SULFATE 325 MG TABLET. PO SCH (09:09)
[2016-07-21] MEDS: CARVEDILOL 12.5 MG TABLET. PO SCH ×2 (09:10→17:04)
[2016-07-21] MEDS: FLUTICASONE 50MCG/NASAL SPRAY 16GM BOTTLE. NS SCH (09:11)
[2016-07-21] MEDS: INSULIN ASPART 300 UNITS/3 ML INSULN.PEN SQ SCH ×3 (09:17→17:00)
[2016-07-21 11:00] VITALS: BP 160/91
[2016-07-21] MEDS: NICOTINE 21MG PATCH. TD PRN (12:34)
--- NOTE | 2016-07-21 13:45 | PDOC ---
PROGRESS NOTES Chief Complaint Chief Complaint 1. acute ischemic left basal ganglia stroke 2. HTN urgency 3. uncompliance wo insurance 4. h/o CVA wo deficit 5. h/o CAD with PCI 3 stents 6. dm2 7. obesity 8. drug abuse with marijuana daily, denies cocaine, but + in urine tox plan: fu with Neuro control HTN cont home meds, was on many HTN meds, which pt didnot take anyway, dc hydralazine and imdur. on ASA 325mg daily as per neuro, cont plavix mri brain done. echo, carotid US neg dvt ppx PTOT SW for medicaid and clinic referral check hba1c, lipid panel. increase lipitor to 40mg daily SSI ALBUTERol prn diflucan x1 for possible fungus vaginitis History of Present Illness History of Present Illness Seen and examined Sleeping, awoke. Daughter present VSS. Vitals Vitals Vital Signs Date Time Temp Pulse Resp B/P (MAP) Pulse Ox O2 Delivery O2 Flow Rate FiO2 07/21/16 11:34 98 Room Air 07/21/16 11:00 97.7 108 18 160/91 (114) 97.7 Physical Exam Physical Exam right arm strength 4/5, leg 2-3/5 General: Alert, Oriented X3, Cooperative Heart: Regular rate, Normal S1 Lungs: Clear Abdomen: Normal bowel sounds, Soft Extremities: No clubbing, No cyanosis Labs LABS Laboratory Tests Test 07/20/16 16:41 07/20/16 20:56 07/21/16 07:21 07/21/16 11:45 Glucose (Fingerstick) 153 mg/dL (70-99) 163 mg/dL (70-99) 173 mg/dL (70-99) 126 mg/dL (70-99) Review of Systems Review of Systems co r weakness co feeling tired Assessment and Plan Assessmemt and Plan Problems Medical Problems: (1) Acute CVA (cerebrovascular accident) Status: Acute (2) Chest pain Status: Acute (3) Cocaine abuse Status: Acute (4) Hypertension Status: Acute (5) Noncompliance with medications Status: Acute (6) Type 2 diabetes mellitus Status: Acute 1. acute ischemic left basal ganglia stroke 2. HTN urgency 3. uncompliance wo insurance 4. h/o CVA wo deficit 5. h/o CAD with PCI 3 stents 6. dm2 7. obesity 8. drug abuse with marijuana daily, denies cocaine, but + in urine tox plan: fu with Neuro control HTN cont home meds, was on many HTN meds, which pt didnot take anyway, dc hydralazine and imdur. on ASA 325mg daily as per neuro, cont plavix mri brain done. echo, carotid US neg dvt ppx PTOT SW for medicaid and clinic referral check hba1c, lipid panel. increase lipitor to 40mg daily SSI ALBUTERol prn ? dc in am? Problems: Comment Review of Relevant I have reviewed the following items cecilia (where applicable) has been applied. Labs Laboratory Tests Test 07/19/16 17:15 07/19/16 20:21 07/20/16 07:52 07/20/16 08:20 Glucose (Fingerstick) 111 mg/dL (70-99) 116 mg/dL (70-99) 144 mg/dL (70-99) White Blood Count 7.0 x10^3/uL (4.0-11.0) Red Blood Count 3.65 x10^6/uL (3.50-5.40) Hemoglobin 11.2 g/dL (12.0-15.5) Hematocrit 32.9 % (36.0-47.0) Mean Corpuscular Volume 90 fL (79-100) Mean Corpuscular Hemoglobin 31 pg (25-35) Mean Corpuscular Hemoglobin Concent 34 g/dL (31-37) Red Cell Distribution Width 16.2 % (11.5-14.5) Platelet Count 278 x10^3/uL (140-400) Neutrophils (%) (Auto) 69 % (31-73) Lymphocytes (%) (Auto) 19 % (24-48) Monocytes (%) (Auto) 9 % (0-9) Eosinophils (%) (Auto) 3 % (0-3) Basophils (%) (Auto) 1 % (0-3) Neutrophils # (Auto) 4.8 x10^3uL (1.8-7.7) Lymphocytes # (Auto) 1.3 x10^3/uL (1.0-4.8) Monocytes # (Auto) 0.6 x10^3/uL (0.0-1.1) Eosinophils # (Auto) 0.2 x10^3/uL (0.0-0.7) Basophils # (Auto) 0.1 x10^3/uL (0.0-0.2) Sodium Level 137 mmol/L (136-145) Potassium Level 4.1 mmol/L (3.5-5.1) Chloride Level 104 mmol/L (98-107) Carbon Dioxide Level 24 mmol/L (21-32) Anion Gap 9 (6-14) Blood Urea Nitrogen 9 mg/dL (7-20) Creatinine 0.9 mg/dL (0.6-1.0) Estimated GFR (Cockcroft-Gault) 82.7 Glucose Level 143 mg/dL (70-99) Calcium Level 9.0 mg/dL (8.5-10.1) Test 07/20/16 11:36 07/20/16 16:41 07/20/16 20:56 07/21/16 07:21 Glucose (Fingerstick) 188 mg/dL (70-99) 153 mg/dL (70-99) 163 mg/dL (70-99) 173 mg/dL (70-99) Test 07/21/16 11:45 Glucose (Fingerstick) 126 mg/dL (70-99) Laboratory Tests Test 07/20/16 16:41 07/20/16 20:56 07/21/16 07:21 07/21/16 11:45 Glucose (Fingerstick) 153 mg/dL (70-99) 163 mg/dL (70-99) 173 mg/dL (70-99) 126 mg/dL (70-99) Medications Current Medications Sodium Chloride 1,000 ml @ 100 mls/hr Q10H IV Last administered on 07/18/16 13 :50; Start 07/18/16 at 13:26; Stop 07/18/16 at 23:25; Status DC Aspirin ([employer] Aspirin) 325 mg 1X ONCE PO Last administered on 07/18/16 15:24 ; Start 07/18/16 at 14:45; Stop 07/18/16 at 14:49; Status DC Ondansetron HCl (Zofran) 4 mg PRN Q8HRS PRN IV NAUSEA/VOMITING; Start 07/18/16 at 15:00; Stop 07/19/16 at 14:59; Status DC Fentanyl Citrate (Fentanyl 2ml Vial) 50 mcg PRN Q2HR PRN IV PAIN; Start at 15:00; Stop 07/19/16 at 14:59; Status DC Sodium Chloride 1,000 ml @ 125 mls/hr Q8H IV ; Start 07/18/16 at 14:59; Stop 07/19/16 at 09:35; Status DC Acetaminophen (Tylenol) 650 mg PRN Q4HRS PRN PO FEVER; Start 07/18/16 at 15:00; Stop 07/19/16 at 14:59; Status DC Aspirin ([employer] Aspirin) 325 mg DAILYWBKFT PO Last administered on 07/21/16 09: 08; Start 07/19/16 at 08:00 Amlodipine Besylate (Norvasc) 10 mg DAILY PO Last administered on 07/21/16 09: 08; Start 07/18/16 at 16:00 Aspirin (Children'S Aspirin) 81 mg DAILY PO ; Start 07/18/16 at 16:00; Stop at 09:35; Status DC Carvedilol (Coreg) 12.5 mg BIDWMEALS PO Last administered on 07/21/16 09:10; Start 07/18/16 at 17:00 Clopidogrel Bisulfate (Plavix) 75 mg DAILYWBKFT PO Last administered on 09:09; Start 07/18/16 at 16:00 Ferrous Sulfate (Feosol) 325 mg DAILY PO Last administered on 07/21/16 09:09; Start 07/18/16 at 16:00 Fluticasone Propionate (Flonase) 2 spray DAILY NS Last administered on 09:11; Start 07/19/16 at 09:00 Hydralazine HCl (Apresoline) 25 mg TID PO ; Start 07/18/16 at 16:00; Stop at 11:54; Status DC Acetaminophen/ Hydrocodone Bitart (Lortab 5/325) 1 tab PRN Q6HRS PRN PO PAIN Last administered on 07/21/16 09:07; Start 07/18/16 at 15:15 Isosorbide Mononitrate (Imdur) 30 mg DAILY PO Last administered on 07/19/16 11: 44; Start 07/18/16 at 16:00; Stop 07/19/16 at 11:54; Status DC Metformin HCl (Glucophage) 1,000 mg BIDWMEALS PO Last administered on 07/21/16 09:09; Start 07/18/16 at 17:00 Pantoprazole Sodium (Protonix) 40 mg DAILYAC PO Last administered on 07/21/16 09:08; Start 07/18/16 at 16:30 Atorvastatin Calcium (Lipitor) 10 mg QHS PO ; Start 07/18/16 at 21:00; Stop at 09:35; Status DC Sodium Chloride (Normal Saline Flush) 3 ml QSHIFT PRN IV AFTER MEDS AND BLOOD DRAWS; Start 07/18/16 at 15:15 Sodium Chloride 1,000 ml @ 100 mls/hr Q10H IV ; Start 07/18/16 at 15:10; Stop at 10:52; Status DC Aspirin (Ecotrin) 325 mg DAILYWBKFT PO Last administered on 07/19/16 07:58; Start 07/18/16 at 16:00; Stop 07/19/16 at 09:35; Status DC Atorvastatin Calcium (Lipitor) 20 mg QHS PO Last administered on 07/18/16 21:17 ; Start 07/18/16 at 21:00; Stop 07/19/16 at 13:24; Status DC Labetalol HCl (Normodyne) 10 mg PRN Q10MIN PRN IV HYPERTENSION, SEE COMMENTS; Start 07/18/16 at 15:15 Acetaminophen (Tylenol) 650 mg PRN Q6HRS PRN PO FEVER; Start 07/18/16 at 15:15; Stop 07/18/16 at 15:34; Status DC Acetaminophen (Acetaminophen Supp) 650 mg PRN Q6HRS PRN [place] FEVER; Start at 15:15 Ondansetron HCl (Zofran) 4 mg PRN Q6HRS PRN IV NAUSEA/VOMITING Last administered on 07/21/16 09:03; Start 07/18/16 at 15:15 Enoxaparin Sodium (Lovenox 40mg Syringe) 40 mg Q24H SQ Last administered on 07/20 16:41; Start 07/18/16 at 16:00 Hydralazine HCl (Apresoline) 10 mg PRN Q4HRS PRN IVP ELEVATED BP, SEE COMMENTS ; Start 07/18/16 at 15:30 Insulin Aspart (NovoLOG) 0-9 UNITS TIDWMEALS SQ Last administered on 07/21/16 09:17; Start 07/18/16 at 17:00 Dextrose (Dextrose 50%-Water Syringe) 12.5 gm PRN Q15MIN PRN IV SEE COMMENTS; Start 07/18/16 at 15:30 Nicotine (Nicoderm Cq 21mg) 1 patch PRN DAILY PRN TD SMOKING CESSATION Last administered on 07/21/16 12:34; Start 07/18/16 at 15:30 Albuterol/ Ipratropium (Duoneb) 3 ml RTQID NEB Last administered on 07/21/16 11 :32; Start 07/18/16 at 16:00 Albuterol Sulfate (Ventolin Neb Soln) 2.5 mg PRN Q2HR PRN NEB SHORTNESS OF BREATH; Start 07/18/16 at 15:30 Guaifenesin (Mucinex) 600 mg BID PO Last administered on 07/21/16 09:09; Start 07/18/16 at 21:00 Fluconazole (Diflucan) 200 mg 1X ONCE PO Last administered on 07/19/16 13:41; Start 07/19/16 at 12:00; Stop 07/19/16 at 12:01; Status DC Tramadol HCl (Ultram) 50 mg PRN Q6HRS PRN PO PAIN MILD TO MOD; Start 07/19/16 at 12:00 Atorvastatin Calcium (Lipitor) 40 mg QHS PO Last administered on 07/20/16 20:38 ; Start 07/19/16 at 21:00 Active Scripts Active Naproxen 500 Mg Tablet. 1 Tab PO BID [place] 5-325 Tablet (Acetaminophen/Hydrocodone Bitart) 1 Each Tablet 1-2 Tab PO Q4-6HRS Isosorbide Mononitrate Er (Isosorbide Mononitrate) 30 Mg Tab.er.24h 30 Mg PO DAILY Hydralazine Hcl 25 Mg Tablet 25 Mg PO TID Fluticasone Propionate Nasal [place] (Fluticasone Propionate) 16 Gm [place].susp 2 [place] NS DAILY Amlodipine Besylate 5 Mg Tablet 10 Mg PO DAILY Pantoprazole Sodium 40 Mg Tablet.dr 40 Mg PO DAILYAC Coreg (Carvedilol) 12.5 Mg Tablet 12.5 Mg PO BIDWMEALS Lovastatin 40 Mg Tablet 40 Mg PO DAILY Metformin Hcl 1,000 Mg Tablet 1,000 Mg PO BID Clopidogrel (Clopidogrel Bisulfate) 75 Mg Tablet 75 Mg PO DAILYWBKFT Reported [depression pill] 1 Tab PO DAILY Iron Supplement (Ferrous Sulfate) 325 Mg Tablet 1 Tab PO DAILY Aspirin 81 Mg Tab.chew 1 Tab PO DAILY Vitals/I & O Vital Sign - Last 24 Hours 07/20/16 07/20/16 07/20/16 07/20/16 15:00 15:59 16:41 19:20 Temp 97.4 98.1 97.4 98.1 Pulse 85 85 83 Resp 20 18 B/P (MAP) 136/84 (101) 136/84 162/101 (121) Pulse Ox 99 97 O2 Delivery Room Air Room Air Room Air 07/20/16 07/20/16 07/20/16 07/21/16 20:05 20:09 23:15 03:41 Temp 98.1 98.4 98.1 98.4 Pulse 81 87 Resp 18 18 B/P (MAP) 173/96 (121) 150/90 (110) Pulse Ox 98 98 O2 Delivery Room Air Room Air Room Air Room Air 07/21/16 07/21/16 07/21/16 07/21/16 07:00 08:00 09:07 09:08 Temp 97.5 97.5 Pulse 101 101 Resp 18 B/P (MAP) 139/82 (101) 139/82 Pulse Ox 99 99 O2 Delivery Room Air Room Air Room Air 07/21/16 07/21/16 07/21/16 07/21/16 09:10 10:11 11:00 11:34 Temp 97.7 97.7 Pulse 101 108 Resp 18 B/P (MAP) 139/82 160/91 (114) Pulse Ox 99 98 98 O2 Delivery Room Air Room Air Room Air Intake and Output 07/20/16 07/20/16 07/21/16 15:00 23:00 07:00 Intake Total 500 ml 240 ml Output Total 0 ml Balance 500 ml 240 ml BYRON DINH III DO Jul 21, 2016 13:45
--- NOTE | 2016-07-21 14:43 | PDOC ---
PROGRESS NOTES Assessment Problems Medical Problems: (1) Acute CVA (cerebrovascular accident) Status: Acute (2) Chest pain Status: Acute (3) Cocaine abuse Status: Acute (4) Hypertension Status: Acute (5) Noncompliance with medications Status: Acute (6) Type 2 diabetes mellitus Status: Acute Left basal ganglia lacunar stroke, multiple other acute white matter infarcts consistent with her history of hypertension, diabetes, and cocaine use. Chronic white matter abnormalities, given her use of cocaine, hypertension, and diabetes, these are much more likely to be related to cerebrovascular disease than multiple sclerosis. Plan Blood pressure and diabetic control Statin Rehabilitation modalities Aspirin No need for workup for multiple sclerosis Aim for discharge tomorrow Subjective No complaints, ready to go home tomorrow. Objective Vital Signs Date Time Temp Pulse Resp B/P (MAP) Pulse Ox O2 Delivery O2 Flow Rate FiO2 07/21/16 11:34 98 Room Air 07/21/16 11:00 97.7 108 18 160/91 (114) 97.7 Intake and Output 07/21/16 07:00 Intake Total 740 ml Output Total 0 ml Balance 740 ml Intake Oral 740 ml Output Urine Total 0 ml # Voids 4 PHYSICAL EXAM Alert. Oriented to time, place and person. PERRL. EOMI. CN: no focal findings. Muscle tone: normal. Muscle strength: 5-/5 on right, 5/5 on left DTR: 1+ Plantar reflex: flexor Gait: Not tested Sensory exam: no abnormal findings. No cerebellar signs elicited. Review of Relevant I have reviewed the following items cecilia (where applicable) has been applied. Labs Laboratory Tests Test 07/19/16 17:15 07/19/16 20:21 07/20/16 07:52 07/20/16 08:20 Glucose (Fingerstick) 111 mg/dL (70-99) 116 mg/dL (70-99) 144 mg/dL (70-99) White Blood Count 7.0 x10^3/uL (4.0-11.0) Red Blood Count 3.65 x10^6/uL (3.50-5.40) Hemoglobin 11.2 g/dL (12.0-15.5) Hematocrit 32.9 % (36.0-47.0) Mean Corpuscular Volume 90 fL (79-100) Mean Corpuscular Hemoglobin 31 pg (25-35) Mean Corpuscular Hemoglobin Concent 34 g/dL (31-37) Red Cell Distribution Width 16.2 % (11.5-14.5) Platelet Count 278 x10^3/uL (140-400) Neutrophils (%) (Auto) 69 % (31-73) Lymphocytes (%) (Auto) 19 % (24-48) Monocytes (%) (Auto) 9 % (0-9) Eosinophils (%) (Auto) 3 % (0-3) Basophils (%) (Auto) 1 % (0-3) Neutrophils # (Auto) 4.8 x10^3uL (1.8-7.7) Lymphocytes # (Auto) 1.3 x10^3/uL (1.0-4.8) Monocytes # (Auto) 0.6 x10^3/uL (0.0-1.1) Eosinophils # (Auto) 0.2 x10^3/uL (0.0-0.7) Basophils # (Auto) 0.1 x10^3/uL (0.0-0.2) Sodium Level 137 mmol/L (136-145) Potassium Level 4.1 mmol/L (3.5-5.1) Chloride Level 104 mmol/L (98-107) Carbon Dioxide Level 24 mmol/L (21-32) Anion Gap 9 (6-14) Blood Urea Nitrogen 9 mg/dL (7-20) Creatinine 0.9 mg/dL (0.6-1.0) Estimated GFR (Cockcroft-Gault) 82.7 Glucose Level 143 mg/dL (70-99) Calcium Level 9.0 mg/dL (8.5-10.1) Test 07/20/16 11:36 07/20/16 16:41 07/20/16 20:56 07/21/16 07:21 Glucose (Fingerstick) 188 mg/dL (70-99) 153 mg/dL (70-99) 163 mg/dL (70-99) 173 mg/dL (70-99) Test 07/21/16 11:45 Glucose (Fingerstick) 126 mg/dL (70-99) Laboratory Tests Test 07/20/16 16:41 07/20/16 20:56 07/21/16 07:21 07/21/16 11:45 Glucose (Fingerstick) 153 mg/dL (70-99) 163 mg/dL (70-99) 173 mg/dL (70-99) 126 mg/dL (70-99) Medications Current Medications Sodium Chloride 1,000 ml @ 100 mls/hr Q10H IV Last administered on 07/18/16 13 :50; Start 07/18/16 at 13:26; Stop 07/18/16 at 23:25; Status DC Aspirin (Yenifer Aspirin) 325 mg 1X ONCE PO Last administered on 07/18/16 15:24 ; Start 07/18/16 at 14:45; Stop 07/18/16 at 14:49; Status DC Ondansetron HCl (Zofran) 4 mg PRN Q8HRS PRN IV NAUSEA/VOMITING; Start 07/18/16 at 15:00; Stop 07/19/16 at 14:59; Status DC Fentanyl Citrate (Fentanyl 2ml Vial) 50 mcg PRN Q2HR PRN IV PAIN; Start at 15:00; Stop 07/19/16 at 14:59; Status DC Sodium Chloride 1,000 ml @ 125 mls/hr Q8H IV ; Start 07/18/16 at 14:59; Stop 07/19/16 at 09:35; Status DC Acetaminophen (Tylenol) 650 mg PRN Q4HRS PRN PO FEVER; Start 07/18/16 at 15:00; Stop 07/19/16 at 14:59; Status DC Aspirin (Yenifer Aspirin) 325 mg DAILYWBKFT PO Last administered on 07/21/16 09: 08; Start 07/19/16 at 08:00 Amlodipine Besylate (Norvasc) 10 mg DAILY PO Last administered on 07/21/16 09: 08; Start 07/18/16 at 16:00 Aspirin (Children'S Aspirin) 81 mg DAILY PO ; Start 07/18/16 at 16:00; Stop at 09:35; Status DC Carvedilol (Coreg) 12.5 mg BIDWMEALS PO Last administered on 07/21/16 09:10; Start 07/18/16 at 17:00 Clopidogrel Bisulfate (Plavix) 75 mg DAILYWBKFT PO Last administered on 09:09; Start 07/18/16 at 16:00 Ferrous Sulfate (Feosol) 325 mg DAILY PO Last administered on 07/21/16 09:09; Start 07/18/16 at 16:00 Fluticasone Propionate (Flonase) 2 spray DAILY NS Last administered on 09:11; Start 07/19/16 at 09:00 Hydralazine HCl (Apresoline) 25 mg TID PO ; Start 07/18/16 at 16:00; Stop at 11:54; Status DC Acetaminophen/ Hydrocodone Bitart (Lortab 5/325) 1 tab PRN Q6HRS PRN PO PAIN Last administered on 07/21/16 09:07; Start 07/18/16 at 15:15 Isosorbide Mononitrate (Imdur) 30 mg DAILY PO Last administered on 07/19/16 11: 44; Start 07/18/16 at 16:00; Stop 07/19/16 at 11:54; Status DC Metformin HCl (Glucophage) 1,000 mg BIDWMEALS PO Last administered on 07/21/16 09:09; Start 07/18/16 at 17:00 Pantoprazole Sodium (Protonix) 40 mg DAILYAC PO Last administered on 07/21/16 09:08; Start 07/18/16 at 16:30 Atorvastatin Calcium (Lipitor) 10 mg QHS PO ; Start 07/18/16 at 21:00; Stop at 09:35; Status DC Sodium Chloride (Normal Saline Flush) 3 ml QSHIFT PRN IV AFTER MEDS AND BLOOD DRAWS; Start 07/18/16 at 15:15 Sodium Chloride 1,000 ml @ 100 mls/hr Q10H IV ; Start 07/18/16 at 15:10; Stop at 10:52; Status DC Aspirin (Ecotrin) 325 mg DAILYWBKFT PO Last administered on 07/19/16 07:58; Start 07/18/16 at 16:00; Stop 07/19/16 at 09:35; Status DC Atorvastatin Calcium (Lipitor) 20 mg QHS PO Last administered on 07/18/16 21:17 ; Start 07/18/16 at 21:00; Stop 07/19/16 at 13:24; Status DC Labetalol HCl (Normodyne) 10 mg PRN Q10MIN PRN IV HYPERTENSION, SEE COMMENTS; Start 07/18/16 at 15:15 Acetaminophen (Tylenol) 650 mg PRN Q6HRS PRN PO FEVER; Start 07/18/16 at 15:15; Stop 07/18/16 at 15:34; Status DC Acetaminophen (Acetaminophen Supp) 650 mg PRN Q6HRS PRN [place] FEVER; Start at 15:15 Ondansetron HCl (Zofran) 4 mg PRN Q6HRS PRN IV NAUSEA/VOMITING Last administered on 07/21/16 09:03; Start 07/18/16 at 15:15 Enoxaparin Sodium (Lovenox 40mg Syringe) 40 mg Q24H SQ Last administered on 07/20 16:41; Start 07/18/16 at 16:00 Hydralazine HCl (Apresoline) 10 mg PRN Q4HRS PRN IVP ELEVATED BP, SEE COMMENTS ; Start 07/18/16 at 15:30 Insulin Aspart (NovoLOG) 0-9 UNITS TIDWMEALS SQ Last administered on 07/21/16 09:17; Start 07/18/16 at 17:00 Dextrose (Dextrose 50%-Water Syringe) 12.5 gm PRN Q15MIN PRN IV SEE COMMENTS; Start 07/18/16 at 15:30 Nicotine (Nicoderm Cq 21mg) 1 patch PRN DAILY PRN TD SMOKING CESSATION Last administered on 07/21/16 12:34; Start 07/18/16 at 15:30 Albuterol/ Ipratropium (Duoneb) 3 ml RTQID NEB Last administered on 07/21/16 11 :32; Start 07/18/16 at 16:00 Albuterol Sulfate (Ventolin Neb Soln) 2.5 mg PRN Q2HR PRN NEB SHORTNESS OF BREATH; Start 07/18/16 at 15:30 Guaifenesin (Mucinex) 600 mg BID PO Last administered on 07/21/16 09:09; Start 07/18/16 at 21:00 Fluconazole (Diflucan) 200 mg 1X ONCE PO Last administered on 07/19/16 13:41; Start 07/19/16 at 12:00; Stop 07/19/16 at 12:01; Status DC Tramadol HCl (Ultram) 50 mg PRN Q6HRS PRN PO PAIN MILD TO MOD; Start 07/19/16 at 12:00 Atorvastatin Calcium (Lipitor) 40 mg QHS PO Last administered on 07/20/16t 20:38 ; Start 07/19/16 at 21:00 Active Scripts Active Naproxen 500 Mg Tablet.dr 1 Tab PO BID [place] 5-325 Tablet (Acetaminophen/Hydrocodone Bitart) 1 Each Tablet 1-2 Tab PO Q4-6HRS Isosorbide Mononitrate Er (Isosorbide Mononitrate) 30 Mg Tab.er.24h 30 Mg PO DAILY Hydralazine Hcl 25 Mg Tablet 25 Mg PO TID Fluticasone Propionate Nasal [place] (Fluticasone Propionate) 16 Gm [place].susp 2 [place] NS DAILY Amlodipine Besylate 5 Mg Tablet 10 Mg PO DAILY Pantoprazole Sodium 40 Mg Tablet.dr 40 Mg PO DAILYAC Coreg (Carvedilol) 12.5 Mg Tablet 12.5 Mg PO BIDWMEALS Lovastatin 40 Mg Tablet 40 Mg PO DAILY Metformin Hcl 1,000 Mg Tablet 1,000 Mg PO BID Clopidogrel (Clopidogrel Bisulfate) 75 Mg Tablet 75 Mg PO DAILYWBKFT Reported [depression pill] 1 Tab PO DAILY Iron Supplement (Ferrous Sulfate) 325 Mg Tablet 1 Tab PO DAILY Aspirin 81 Mg Tab.chew 1 Tab PO DAILY Vitals/I & O Vital Sign - Last 24 Hours 07/20/16 07/20/16 07/20/16 07/20/16 15:00 15:59 16:41 19:20 Temp 97.4 98.1 97.4 98.1 Pulse 85 85 83 Resp 20 18 B/P (MAP) 136/84 (101) 136/84 162/101 (121) Pulse Ox 99 97 O2 Delivery Room Air Room Air Room Air 07/20/16 07/20/16 07/20/16 07/21/16 20:05 20:09 23:15 03:41 Temp 98.1 98.4 98.1 98.4 Pulse 81 87 Resp 18 18 B/P (MAP) 173/96 (121) 150/90 (110) Pulse Ox 98 98 O2 Delivery Room Air Room Air Room Air Room Air 07/21/16 07/21/16 07/21/16 07/21/16 07:00 08:00 09:07 09:08 Temp 97.5 97.5 Pulse 101 101 Resp 18 B/P (MAP) 139/82 (101) 139/82 Pulse Ox 99 99 O2 Delivery Room Air Room Air Room Air 07/21/16 07/21/16 07/21/16 07/21/16 09:10 10:11 11:00 11:34 Temp 97.7 97.7 Pulse 101 108 Resp 18 B/P (MAP) 139/82 160/91 (114) Pulse Ox 99 98 98 O2 Delivery Room Air Room Air Room Air Intake and Output 07/20/16 07/20/16 07/21/16 15:00 23:00 07:00 Intake Total 500 ml 240 ml Output Total 0 ml Balance 500 ml 240 ml CAT DORADO MD Jul 21, 2016 14:43
[2016-07-21 14:53] VITALS: BP 123/77
[2016-07-21] MEDS: ENOXAPARIN 40 MG/0.4 ML SYRINGE. SQ SCH (17:04)
[2016-07-21 19:00] VITALS: BP 133/82
[2016-07-21] MEDS: ATORVASTATIN CALCIUM 40 MG TABLET. PO SCH (20:21)
[2016-07-21 23:00] VITALS: BP 144/88
[2016-07-22 03:00] VITALS: BP 134/79
[2016-07-22 07:00] VITALS: BP 116/82
[2016-07-22] MEDS: IPRATRPIUM/ALBUTEROL 0.5/2.5MG 3 ML NEBU. NEB SCH ×2 (07:55→11:30)
[2016-07-22] MEDS: INSULIN ASPART 300 UNITS/3 ML INSULN.PEN SQ SCH (08:00)
[2016-07-22] MEDS: ASPIRIN 325 MG TABLET PO SCH (08:15)
[2016-07-22] MEDS: NICOTINE 21MG PATCH. TD PRN (08:15)
[2016-07-22] MEDS: FERROUS SULFATE 325 MG TABLET. PO SCH (08:16)
[2016-07-22] MEDS: CLOPIDOGREL BISULFATE 75 MG TABLET PO SCH (08:16)
[2016-07-22] MEDS: CARVEDILOL 12.5 MG TABLET. PO SCH (08:16)
[2016-07-22] MEDS: PANTOPRAZOLE 40 MG TABLET.DR. PO SCH (08:16)
[2016-07-22] MEDS: FLUTICASONE 50MCG/NASAL SPRAY 16GM BOTTLE. NS SCH (08:17)
[2016-07-22] MEDS: amLODIPine BESYLATE 10 MG TABLET PO SCH (08:17)
--- NOTE | 2016-07-22 10:53 | DS ---
DATE OF DISCHARGE: 07/22/2016 ADMISSION DIAGNOSES: Stroke in the left basal ganglia, hypertensive urgency, drug abuse with marijuana, and she was cocaine positive on her drug screen, although she denies that. DISCHARGE DIAGNOSES: Resolving stroke, diabetes, obesity, resolving hypertension, drug abuse, history of old stroke, and history of coronary artery disease with three stents. HOSPITAL COURSE: The patient is a pleasant middle-aged female who basically presented with a new stroke. She was weak on the right. She was admitted. The stroke appeared to be ischemic on her imaging study. She also was cocaine positive. We did physical therapy, occupational therapy, and speech therapy. She is back to her baseline. We will plan to discharge her with close outpatient followup. The patient was seen and examined this morning. Her heart sounds were normal. Her lungs were clear. Abdomen was soft. Extremities were with no edema. DISPOSITION: Home. ACTIVITY: As tolerated. DIET: Low sodium. MEDICATIONS: Please see the MRAD. TOTAL TIME ON DISCHARGE: 31 minutes. BYRON DINH DO DR: JESSICA/ivonne JOB#: [id number] / [id number]
--- NOTE | 2016-07-22 10:58 | PDOC ---
PROGRESS NOTES Assessment Problems Medical Problems: (1) Acute CVA (cerebrovascular accident) Status: Acute (2) Chest pain Status: Acute (3) Cocaine abuse Status: Acute (4) Hypertension Status: Acute (5) Noncompliance with medications Status: Acute (6) Type 2 diabetes mellitus Status: Acute Left basal ganglia lacunar stroke, multiple other acute white matter infarcts consistent with her history of hypertension, diabetes, and cocaine use. Chronic white matter abnormalities, given her use of cocaine, hypertension, and diabetes, these are much more likely to be related to cerebrovascular disease than multiple sclerosis. PFO Plan Blood pressure and diabetic control Statin Rehabilitation modalities Aspirin No need for workup for multiple sclerosis Okay for discharge Follow-up with me as needed She needs to follow up with a primary care physician Studies show no role for closure of PFO, but would consider this if she continues to have strokes despite maximum medical treatment Subjective She complains of heavy menstrual bleeding Objective Vital Signs Date Time Temp Pulse Resp B/P (MAP) Pulse Ox O2 Delivery O2 Flow Rate FiO2 07/22/16 08:21 Room Air 07/22/16 08:17 77 116/82 07/22/16 07:57 97 07/22/16 07:00 98.1 18 98.1 Intake and Output 07/22/16 07:00 Intake Total 460 ml Balance 460 ml Intake Oral 460 ml # Voids 4 PHYSICAL EXAM Alert. Oriented to time, place and person. PERRL. EOMI. CN: no focal findings. Muscle tone: normal. Muscle strength: 5-/5 on right, 5/5 on left DTR: 1+ Plantar reflex: flexor Gait: Not tested Sensory exam: no abnormal findings. No cerebellar signs elicited. Review of Relevant I have reviewed the following items cecilia (where applicable) has been applied. Labs Laboratory Tests Test 07/20/16 11:36 07/20/16 16:41 07/20/16 20:56 07/21/16 07:21 Glucose (Fingerstick) 188 mg/dL (70-99) 153 mg/dL (70-99) 163 mg/dL (70-99) 173 mg/dL (70-99) Test 07/21/16 11:45 07/21/16 16:53 07/21/16 20:51 07/21/16 20:58 Glucose (Fingerstick) 126 mg/dL (70-99) 110 mg/dL (70-99) 237 mg/dL (70-99) 168 mg/dL (70-99) Test 07/22/16 07:48 Glucose (Fingerstick) 148 mg/dL (70-99) Laboratory Tests Test 07/21/16 11:45 07/21/16 16:53 07/21/16 20:51 07/21/16 20:58 Glucose (Fingerstick) 126 mg/dL (70-99) 110 mg/dL (70-99) 237 mg/dL (70-99) 168 mg/dL (70-99) Test 07/22/16 07:48 Glucose (Fingerstick) 148 mg/dL (70-99) Medications Current Medications Sodium Chloride 1,000 ml @ 100 mls/hr Q10H IV Last administered on 07/18/16 13 :50; Start 07/18/16 at 13:26; Stop 07/18/16 at 23:25; Status DC Aspirin ([place] Noise Aspirin) 325 mg 1X ONCE PO Last administered on 07/18/16 15:24 ; Start 07/18/16 at 14:45; Stop 07/18/16 at 14:49; Status DC Ondansetron HCl (Zofran) 4 mg PRN Q8HRS PRN IV NAUSEA/VOMITING; Start 07/18/16 at 15:00; Stop 07/19/16 at 14:59; Status DC Fentanyl Citrate (Fentanyl 2ml Vial) 50 mcg PRN Q2HR PRN IV PAIN; Start at 15:00; Stop 07/19/16 at 14:59; Status DC Sodium Chloride 1,000 ml @ 125 mls/hr Q8H IV ; Start 07/18/16 at 14:59; Stop 07/19/16 at 09:35; Status DC Acetaminophen (Tylenol) 650 mg PRN Q4HRS PRN PO FEVER; Start 07/18/16 at 15:00; Stop 07/19/16 at 14:59; Status DC Aspirin (Yenifer Aspirin) 325 mg DAILYWBKFT PO Last administered on 07/22/16 08: 15; Start 07/19/16 at 08:00 Amlodipine Besylate (Norvasc) 10 mg DAILY PO Last administered on 07/22/16 08: 17; Start 07/18/16 at 16:00 Aspirin (Children'S Aspirin) 81 mg DAILY PO ; Start 07/18/16 at 16:00; Stop at 09:35; Status DC Carvedilol (Coreg) 12.5 mg BIDWMEALS PO Last administered on 07/22/16 08:16; Start 07/18/16 at 17:00 Clopidogrel Bisulfate (Plavix) 75 mg DAILYWBKFT PO Last administered on 08:16; Start 07/18/16 at 16:00 Ferrous Sulfate (Feosol) 325 mg DAILY PO Last administered on 07/22/16 08:16; Start 07/18/16 at 16:00 Fluticasone Propionate (Flonase) 2 spray DAILY NS Last administered on 09:11; Start 07/19/16 at 09:00 Hydralazine HCl (Apresoline) 25 mg TID PO ; Start 07/18/16 at 16:00; Stop at 11:54; Status DC Acetaminophen/ Hydrocodone Bitart (Lortab 5/325) 1 tab PRN Q6HRS PRN PO PAIN Last administered on 07/21/16 09:07; Start 07/18/16 at 15:15 Isosorbide Mononitrate (Imdur) 30 mg DAILY PO Last administered on 07/19/16 11: 44; Start 07/18/16 at 16:00; Stop 07/19/16 at 11:54; Status DC Metformin HCl (Glucophage) 1,000 mg BIDWMEALS PO Last administered on 07/22/16 08:15; Start 07/18/16 at 17:00 Pantoprazole Sodium (Protonix) 40 mg DAILYAC PO Last administered on 07/22/16 08:16; Start 07/18/16 at 16:30 Atorvastatin Calcium (Lipitor) 10 mg QHS PO ; Start 07/18/16 at 21:00; Stop at 09:35; Status DC Sodium Chloride (Normal Saline Flush) 3 ml QSHIFT PRN IV AFTER MEDS AND BLOOD DRAWS; Start 07/18/16 at 15:15 Sodium Chloride 1,000 ml @ 100 mls/hr Q10H IV ; Start 07/18/16 at 15:10; Stop at 10:52; Status DC Aspirin (Ecotrin) 325 mg DAILYWBKFT PO Last administered on 07/19/16 07:58; Start 07/18/16 at 16:00; Stop 07/19/16 at 09:35; Status DC Atorvastatin Calcium (Lipitor) 20 mg QHS PO Last administered on 07/18/16 21:17 ; Start 07/18/16 at 21:00; Stop 07/19/16 at 13:24; Status DC Labetalol HCl (Normodyne) 10 mg PRN Q10MIN PRN IV HYPERTENSION, SEE COMMENTS; Start 07/18/16 at 15:15 Acetaminophen (Tylenol) 650 mg PRN Q6HRS PRN PO FEVER; Start 07/18/16 at 15:15; Stop 07/18/16 at 15:34; Status DC Acetaminophen (Acetaminophen Supp) 650 mg PRN Q6HRS PRN [place] FEVER; Start at 15:15 Ondansetron HCl (Zofran) 4 mg PRN Q6HRS PRN IV NAUSEA/VOMITING Last administered on 07/21/16 09:03; Start 07/18/16 at 15:15 Enoxaparin Sodium (Lovenox 40mg Syringe) 40 mg Q24H SQ Last administered on 07/21 17:04; Start 07/18/16 at 16:00 Hydralazine HCl (Apresoline) 10 mg PRN Q4HRS PRN IVP ELEVATED BP, SEE COMMENTS ; Start 07/18/16 at 15:30 Insulin Aspart (NovoLOG) 0-9 UNITS TIDWMEALS SQ Last administered on 07/21/16 09:17; Start 07/18/16 at 17:00 Dextrose (Dextrose 50%-Water Syringe) 12.5 gm PRN Q15MIN PRN IV SEE COMMENTS; Start 07/18/16 at 15:30 Nicotine (Nicoderm Cq 21mg) 1 patch PRN DAILY PRN TD SMOKING CESSATION Last administered on 07/22/16 08:15; Start 07/18/16 at 15:30 Albuterol/ Ipratropium (Duoneb) 3 ml RTQID NEB Last administered on 07/22/16 07 :55; Start 07/18/16 at 16:00 Albuterol Sulfate (Ventolin Neb Soln) 2.5 mg PRN Q2HR PRN NEB SHORTNESS OF BREATH; Start 07/18/16 at 15:30 Guaifenesin (Mucinex) 600 mg BID PO Last administered on 07/22/16 08:16; Start 07/18/16 at 21:00 Fluconazole (Diflucan) 200 mg 1X ONCE PO Last administered on 07/19/16 13:41; Start 07/19/16 at 12:00; Stop 07/19/16 at 12:01; Status DC Tramadol HCl (Ultram) 50 mg PRN Q6HRS PRN PO PAIN MILD TO MOD; Start 07/19/16 at 12:00 Atorvastatin Calcium (Lipitor) 40 mg QHS PO Last administered on 07/21/16 20:21 ; Start 07/19/16 at 21:00 Active Scripts Active Naproxen 500 Mg Tablet.dr 1 Tab PO BID [place] 5-325 Tablet (Acetaminophen/Hydrocodone Bitart) 1 Each Tablet 1-2 Tab PO Q4-6HRS Isosorbide Mononitrate Er (Isosorbide Mononitrate) 30 Mg Tab.er.24h 30 Mg PO DAILY Hydralazine Hcl 25 Mg Tablet 25 Mg PO TID Fluticasone Propionate Nasal [place] (Fluticasone Propionate) 16 Gm [place].susp 2 [place] NS DAILY Amlodipine Besylate 5 Mg Tablet 10 Mg PO DAILY Pantoprazole Sodium 40 Mg Tablet.dr 40 Mg PO DAILYAC Coreg (Carvedilol) 12.5 Mg Tablet 12.5 Mg PO BIDWMEALS Lovastatin 40 Mg Tablet 40 Mg PO DAILY Metformin Hcl 1,000 Mg Tablet 1,000 Mg PO BID Clopidogrel (Clopidogrel Bisulfate) 75 Mg Tablet 75 Mg PO DAILYWBKFT Reported [depression pill] 1 Tab PO DAILY Iron Supplement (Ferrous Sulfate) 325 Mg Tablet 1 Tab PO DAILY Aspirin 81 Mg Tab.chew 1 Tab PO DAILY Vitals/I & O Vital Sign - Last 24 Hours 07/21/16 07/21/16 07/21/16 07/21/16 11:00 11:34 14:53 17:04 Temp 97.7 97.9 97.7 97.9 Pulse 108 87 87 Resp 18 18 B/P (MAP) 160/91 (114) 123/77 (92) 123/77 Pulse Ox 98 98 99 O2 Delivery Room Air Room Air Room Air 6/4/17 6/4/17 6/4/17 6/4/17 19:00 20:10 20:26 23:00 Temp 98.8 97.9 98.8 97.9 Pulse 85 82 Resp 20 20 B/P (MAP) 133/82 (99) 144/88 (106) Pulse Ox 99 97 99 O2 Delivery Room Air Room Air Room Air Room Air 07/22/16 07/22/16 07/22/16 07/22/16 03:00 07:00 07:57 08:16 Temp 98.2 98.1 98.2 98.1 Pulse 78 77 77 Resp 20 18 B/P (MAP) 134/79 (97) 116/82 (93) 116/82 Pulse Ox 99 98 97 O2 Delivery Room Air Room Air Room Air 07/22/16 07/22/16 08:17 08:21 Pulse 77 B/P (MAP) 116/82 O2 Delivery Room Air Intake and Output 07/21/16 07/21/16 07/22/16 15:00 23:00 07:00 Intake Total 460 ml Balance 460 ml Images Echo: LEFT VENTRICLE The left ventricle is normal size. There is mild concentric left ventricular hypertrophy. The left ventricular systolic function is normal and the ejection fraction is within normal range. The Ejection Fraction is 60-65%. There is normal LV segmental wall motion. The left ventricular diastolic function and filling is normal for age. No left ventricle thrombus noted on this study. There is no ventricular septal defect visualized. RIGHT VENTRICLE The right ventricle is normal size. There is normal right ventricular wall thickness. The right ventricular systolic function is normal. ATRIA The left atrium is mildly dilated. The right atrium size is normal. There is a small interatrial shunt, consistent with PFO upon injection of agitated saline contrast. AORTIC VALVE The aortic valve is normal in structure and function. Doppler and Color Flow revealed no significant aortic regurgitation. There is no significant aortic valvular stenosis. MITRAL VALVE The mitral valve is normal in structure and function. There is no evidence of mitral valve prolapse. There is no mitral valve stenosis. Doppler and Color Flow revealed trace mitral regurgitation. TRICUSPID VALVE Doppler and Color Flow revealed trace tricuspid regurgitation. Pulmonary artery pressures could not be assessed at exam time. PULMONIC VALVE Doppler and Color Flow revealed no pulmonic valvular regurgitation. There is no pulmonic valvular stenosis. GREAT VESSELS The aortic root is normal in size. The ascending aorta is normal in size. The pulmonary artery is normal. The IVC is normal in size and collapses >50% with inspiration. PERICARDIAL EFFUSION There is no evidence of significant pericardial effusion. Critical Notification Critical Value: No <Conclusion> The left ventricular systolic function is normal and the ejection fraction is within normal range. The Ejection Fraction is 60-65%. There is normal LV segmental wall motion. There is a small interatrial shunt, consistent with PFO upon injection of agitated saline contrast. (Positive bubble study) CAT DORADO MD Jul 22, 2016 10:58
[2016-07-22 11:23] VITALS: BP 124/86
== END 2016-07-22 13:15 | disposition home or self-care (01) | DRG 65 ==
LOC: ER 13:11 → 6 SOUTH 14:40
PROVIDERS: ADMIT Internal Medicine; ATTEND Internal Medicine
DX: I63.9 Cerebral infarction, unspecified (principal); G81.91 Hemiplegia, unspecified affecting right dominant side; F12.10 Cannabis abuse, uncomplicated; E11.9 Type 2 diabetes mellitus without complications; E66.9 Obesity, unspecified; E78.5 Hyperlipidemia, unspecified; I10 Essential (primary) hypertension; I25.10 Atherosclerotic heart disease of native coronary artery without angina pectoris; I16.0 Hypertensive urgency; F14.10 Cocaine abuse, uncomplicated; D25.9 Leiomyoma of uterus, unspecified; F17.200 Nicotine dependence, unspecified, uncomplicated; G35 Multiple sclerosis; F32.9 Major depressive disorder, single episode, unspecified; F41.9 Anxiety disorder, unspecified; Z86.73 Personal history of transient ischemic attack (TIA), and cerebral infarction without residual deficits; Z91.14 Patient's other noncompliance with medication regimen; Z91.19 Patient's noncompliance with other medical treatment and regimen; Z83.3 Family history of diabetes mellitus; Z88.2 Allergy status to sulfonamides; Z88.8 Allergy status to other drugs, medicaments and biological substances
CPT/HCPCS: 99285; C8929; 36415; 70450; 70551; 71010; 80048; 80053; 80061; 81001; 81025; 82962; 83036; 83690; 83735; 84484; 85027; 85610; 85730; 93005; 93880; 94250; 94640; 94760; 96360; 96361; G0481; J1650; J1815; J2405; J7030; J7620; 92610; 97110; 97112; 97116

== ENCOUNTER 2016-07-22 19:52 | Inpatient (IN) | payer SELFPAY ==
[~2016-07-22] VITALS: Ht 157.5 cm; Wt 80.3 kg
[2016-07-22] MEDS ORDERED: IV NORMAL SALINE 1000ML BAG 1,000 ML IV SCH (20:12)
[2016-07-22] MEDS ORDERED: fentaNYL PF VIAL 100 MCG/2 ML VIAL IV ONE (20:30)
[2016-07-22] MEDS ORDERED: PROCHLORPERAZINE 10 MG/2 ML VIAL. IV ONE (20:30)
[2016-07-22] MEDS ORDERED: diphenhydrAMINE 50 MG/ML VIAL IVP ONE (20:30)
[2016-07-22 20:40] LABS: BASO # 0.1 x10^3/uL (0.0-0.2); BASO % 1 % (0-3); EOS % 1 % (0-3); HEMATOCRIT 34.1 % (36.0-47.0); HEMOGLOBIN 11.5 g/dL (12.0-15.5); LYMPH # 1.1 x10^3/uL (1.0-4.8); LYMPH % 12 % (24-48); MEAN CORPUSCULAR HEMOGLOBIN 31 pg (25-35); MEAN CORPUSCULAR HGB CONC 34 g/dL (31-37); MEAN CORPUSCULAR VOLUME 91 fL (79-100); MONO % 5 % (0-9); NEUT % 81 % (31-73); PLATELET COUNT 267 x10^3/uL (140-400); RED BLOOD COUNT 3.74 x10^6/uL (3.50-5.40); RED CELL DISTRIBUTION WIDTH 16.3 % (11.5-14.5); WHITE BLOOD COUNT 9.2 x10^3/uL (4.0-11.0)
[2016-07-22 20:50] LABS: INR 1.1 (0.8-1.1); PROTHROMBIN TIME PATIENT 13.6 SEC (11.7-14.0)
[2016-07-22 20:51] LABS: CALCIUM 9.7 mg/dL (8.5-10.1); CREATININE 1.4 mg/dL (0.6-1.0); GFR 49.7; POTASSIUM 4.9 mmol/L (3.5-5.1)
[2016-07-22 20:57] LABS: ALBUMIN 4.3 g/dL (3.4-5.0); ALBUMIN/GLOBULIN RATIO 1.1 (1.0-1.7); MAGNESIUM 1.7 mg/dL (1.8-2.4); TOTAL BILIRUBIN 0.3 mg/dL (0.2-1.0); TOTAL PROTEIN 8.3 g/dL (6.4-8.2)
--- NOTE | 2016-07-22 21:09 | PHYS DOC ---
Past Medical History Past Medical History: Anemia, Anxiety, CVA, Diabetes-Type II, Hypertension Past Surgical History: Additional Past Surgical Histo: heart stents Alcohol Use: Occasionally Drug Use: Marijuana Adult General Chief Complaint Chief Complaint: NEURO SYMPTOMS/DEFICITS HPI HPI Patient is a 41 year old female who presents with complaint of left-sided headache and weakness. Patient states that her symptoms started at 1400 today. Patient was admitted to the hospital on July 18, 2016 and diagnosed with an acute CVA. Patient underwent MRI imaging which confirmed multiple small areas of acute and subacute stroke in the right hemisphere. Patient has history of hypertension and substance abuse. Patient's symptoms had resolved and patient was discharged home earlier today. Patient states her symptoms started shortly after discharge. Patient rates her pain as 10 out of 10. Patient states the pain is mostly along the left side of her head and neck. Patient also notes that she had noticed facial drooping and slurring of speech with onset of symptoms. Patient has not taken any medications to help with symptoms at this time. Review of Systems Review of Systems Constitutional: Denies fever or chills [] Eyes: Denies change in visual acuity, redness, or eye pain [] HENT: Denies nasal congestion or sore throat [] Respiratory: Denies cough or shortness of breath [] Cardiovascular: Denies chest pain or edema [] GI: Denies abdominal pain, nausea, vomiting, bloody stools or diarrhea [] : Denies dysuria or hematuria [] Musculoskeletal: Denies back pain or joint pain [] Integument: Denies rash or skin lesions [] Neurologic: Headache, left-sided facial droop [] Endocrine: Denies polyuria or polydipsia [] Current Medications Current Medications Current Medications Medications (Trade) Dose Ordered Sig/Payton Start Time Stop Time Status Last Admin Dose Admin Diphenhydramine HCl (Benadryl) 25 mg 1X ONCE 07/22/16 20:30 07/22/16 20:31 DC 07/22/16 21:06 25 MG Fentanyl Citrate (Fentanyl 2ml Vial) 50 mcg 1X ONCE 07/22/16 20:30 07/22/16 20:31 DC 07/22/16 21:06 50 MCG Prochlorperazine Edisylate (Compazine) 10 mg 1X ONCE 07/22/16 20:30 07/22/16 20:31 DC 07/22/16 21:06 10 MG Sodium Chloride 1,000 ml @ 100 mls/hr Q10H 07/22/16 20:12 07/23/16 06:11 07/22/16 20:12 100 MLS/HR Allergies Allergies Allergies Coded Allergies Type Severity Reaction Last Updated Verified Sulfa (Sulfonamide Antibiotics) Allergy Intermediate hives 06/08/15 Yes lisinopril Allergy Intermediate hives 06/08/15 Yes Physical Exam Physical Exam Constitutional: Alert, afebrile, appears in moderate to severe discomfort. [] HENT: Normocephalic, atraumatic, bilateral external ears normal, oropharynx moist, no oral exudates, nose normal. [] Eyes: PERRLA, EOMI, conjunctiva normal, no discharge. [] Neck: Normal range of motion, no tenderness, supple, no stridor. [] Cardiovascular:Heart rate regular rhythm, no murmur [] Lungs & Thorax: Bilateral breath sounds clear to auscultation [] Abdomen: Bowel sounds normal, soft, no tenderness, no masses, no pulsatile masses. [] Skin: Warm, dry, no erythema, no rash. [] Back: No tenderness, no CVA tenderness. [] Extremities: No tenderness, no cyanosis, no clubbing, ROM intact, no edema. [] Neurologic: Alert and oriented X 3, 4 out of 5 strength in right upper and lower extremity, slight slurring speech, normal sensory function. [] Current Patient Data Vital Signs Vital Signs Date Time Temp Pulse Resp B/P (MAP) Pulse Ox O2 Delivery O2 Flow Rate FiO2 07/22/16 21:06 16 Room Air 07/22/16 20:25 98.8 82 169/100 (123) 100 98.8 Lab Values Laboratory Tests Test 07/22/16 20:23 07/22/16 20:30 Glucose (Fingerstick) 200 mg/dL (70-99) H White Blood Count 9.2 x10^3/uL (4.0-11.0) Red Blood Count 3.74 x10^6/uL (3.50-5.40) Hemoglobin 11.5 g/dL (12.0-15.5) L Hematocrit 34.1 % (36.0-47.0) L Mean Corpuscular Volume 91 fL (79-100) Mean Corpuscular Hemoglobin 31 pg (25-35) Mean Corpuscular Hemoglobin Concent 34 g/dL (31-37) Red Cell Distribution Width 16.3 % (11.5-14.5) H Platelet Count 267 x10^3/uL (140-400) Neutrophils (%) (Auto) 81 % (31-73) H Lymphocytes (%) (Auto) 12 % (24-48) L Monocytes (%) (Auto) 5 % (0-9) Eosinophils (%) (Auto) 1 % (0-3) Basophils (%) (Auto) 1 % (0-3) Neutrophils # (Auto) 7.5 x10^3uL (1.8-7.7) Lymphocytes # (Auto) 1.1 x10^3/uL (1.0-4.8) Monocytes # (Auto) 0.5 x10^3/uL (0.0-1.1) Eosinophils # (Auto) 0.1 x10^3/uL (0.0-0.7) Basophils # (Auto) 0.1 x10^3/uL (0.0-0.2) Prothrombin Time 13.6 SEC (11.7-14.0) Prothrombin Time INR 1.1 (0.8-1.1) PTT 28 SEC (24-38) Sodium Level 135 mmol/L (136-145) L Potassium Level 4.9 mmol/L (3.5-5.1) Chloride Level 101 mmol/L (98-107) Carbon Dioxide Level 23 mmol/L (21-32) Anion Gap 11 (6-14) Blood Urea Nitrogen 22 mg/dL (7-20) H Creatinine 1.4 mg/dL (0.6-1.0) H Estimated GFR (Cockcroft-Gault) 49.7 BUN/Creatinine Ratio 16 (6-20) Glucose Level 194 mg/dL (70-99) H Calcium Level 9.7 mg/dL (8.5-10.1) Magnesium Level 1.7 mg/dL (1.8-2.4) L Total Bilirubin 0.3 mg/dL (0.2-1.0) Aspartate Amino Transferase (AST) 31 U/L (15-37) Alanine Aminotransferase (ALT) 27 U/L (14-59) Alkaline Phosphatase 73 U/L (46-116) Total Protein 8.3 g/dL (6.4-8.2) H Albumin 4.3 g/dL (3.4-5.0) Albumin/Globulin Ratio 1.1 (1.0-1.7) Laboratory Tests 07/22/16 20:30 Laboratory Tests 07/22/16 20:30 EKG EKG Interpreted by me: Heart rate 82, sinus rhythm, normal intervals, normal axis, no acute ST/T-wave abnormalities present [] Radiology/Procedures Radiology/Procedures [facility] [address] [place] [address] IMAGING REPORT Signed PATIENT: MARILU MANCIA ACCOUNT: [id number] : 1975 LOCATION: ER AGE: 41 SEX: F EXAM STATUS: REG ER ORD. PHYSICIAN: TL SANTIZO MD REASON: left-sided weakness, recent ischemic stroke PROCEDURE: CT HEAD WO CONTRAST CT Head without contrast Indication: RT SD WEAK, LT SD REYNOLDS, RECENT ISCHEMIC STROKE, PRIOR SENT Date of service:07/22/2016 8:47 PM. Comparison: CT head without contrast from 07/18/2016. Technique:Contiguous helical images are obtained from foramen magnum, to the vertex without IV contrast . Findings: The ventricles and sulci are normal for the patient's age. No mass , midline shift , hemorrhage or acute infarct is present. Chronic-appearing calcification is seen in the left lentiform nucleus. Bone windows are normal without calvarial abnormality. The visualized orbits, paranasal sinuses and mastoid air cells are clear . Impression: No acute intracranial process detected. PQRS Compliance Statement: One or more of the following individualized dose reduction techniques were utilized for this examination: 1. Automated exposure control 2. Adjustment of the mA and/or kV according to patient size 3. Use of iterative reconstruction technique Electronically signed by: Ashley Malin MD (07/22/2016 9:04 PM) DICTATED and SIGNED BY: ASHLEY MALIN MD DATE: 07/22/162101 CC: ROSALIA LEVINE MD; TL SANTIZO MD ~ [] Course & Med Decision Making Course & Med Decision Making Pertinent Labs and Imaging studies reviewed. (See chart for details) Patient's CT shows no acute abnormalities. Due to recent stroke, the patient is out of the window for TPA. Patient's symptoms may be due to evolving symptoms from previous stroke. I spoke with Dr. Purcell who asked that the patient be admitted under observation status. Spoke with patient regarding plan of care and she is in agreement at this time. Dragon Disclaimer Dragon Disclaimer This electronic medical record was generated, in whole or in part, using a voice recognition dictation system. Departure Departure Impression: Primary Impression: CVA (cerebral vascular accident) Additional Impressions: Dehydration Substance abuse Disposition: ADMITTED INPATIENT Admitting Physician: Other Condition: STABLE Referrals: ROSALIA LEVINE MD (PCP) Problem Qualifiers Primary Impression: CVA (cerebral vascular accident) CVA mechanism: unspecified Qualified Codes: I63.9 - Cerebral infarction, unspecified TL SANTIZO MD Jul 22, 2016 21:09
[2016-07-22 21:20] LABS: BILIRUBIN,URINE MODERATE (NEG); GLUCOSE,URINE NEGATIVE (NEG); NITRITE,URINE NEGATIVE (NEG); PROTEIN,URINE 100 mg/dL (NEG-TRACE)
[2016-07-22 21:25] LABS: RBC,URINE TNTC /HPF (0-2)
[2016-07-22 21:26] LABS: BACTERIA,URINE 0 /HPF (0-FEW); SQUAMOUS EPITHELIAL CELL,UR MOD /LPF
[2016-07-22 21:33] LABS: BARBITURATES NEG (NEG); BENZODIAZEPINES NEG (NEG); CANNABINOIDS POS (NEG); COCAINE NEG (NEG); METHADONE NEG (NEG); OPIATES POS (NEG); PHENCYCLIDINE NEG (NEG)
[2016-07-22] MEDS: NAPROXEN 500 MG TABLET PO SCH (21:45)
[2016-07-22] MEDS ORDERED: ATORVASTATIN CALCIUM 10 MG TABLET. PO SCH (21:45)
[2016-07-22] MEDS: hydrALAZINE 25 MG TABLET PO SCH (21:45)
[2016-07-22] MEDS: IV NORMAL SALINE 1000ML BAG 1,000 ML IV SCH (22:00)
[2016-07-22] MEDS ORDERED: ACETAMINOPHEN 325 MG TABLET. PO PRN (22:00)
[2016-07-22] MEDS ORDERED: ONDANSETRON PF 4 MG/2 ML VIAL. IV PRN (22:00)
[2016-07-22] MEDS ORDERED: fentaNYL PF VIAL 100 MCG/2 ML VIAL IV PRN (22:00)
[2016-07-22 23:21] VITALS: BP 127/76
--- NOTE | 2016-07-23 01:41 | ACF ---
Admission Forms Criteria TELEMETRY CARE Telemetry Admission Guidelines (Place 'X' for any and all applicable criteria): Admission to telemetry [A] may be indicated for ANY ONE of the following(1)(2)(3 )(4)(5): [ ]I. Cardiac disease, including ANY ONE of the following (9)(10)(11)(12)(13 ): [ ]a) Postacute ID [ ]b) Low-risk patients with ST-segment elevation ID who have undergone successful percutaneous coronary intervention [ ]c) Unstable angina [ ]d) Suspected ID (until it is ruled out) [ ]e) Post cardiac surgery (first 48 to 72 hours unless complications occur) [ ]f) Acute arrhythmias (including significant tachycardia or bradycardia) [B] [ ]g) Firing of an implantable cardioverter defibrillator [C] [ ]h) Suspected pacemaker or implantable cardioverter defibrillator malfunction (10) [ ]i) New administration or adjustment of an antiarrhythmic drug [D ] [ ]j) Child admitted for acute congestive heart failure [ ]j) Long QT syndrome [ ]k) Advanced heart block (eg, second-degree Mobitz type II, third- degree heart block) [ ]l) Acute myocarditis or pericarditis [ ]m) Short-term (ambulatory or inpatient) monitoring after a cardiac procedure as indicated by ANY ONE of the following [E]: [ ]i) Electrophysiologic studies [ ]ii) Percutaneous coronary intervention with stent placement [ ]iii) Pacemaker placement with cardiac conduction defect [ ]iv) Implantable cardiac defibrillator placement [ ]II. Drug overdose or poisoning with substance that causes arrhythmias or QT prolongation (eg, phenothiazines, sympathomimetic agents, cyclic antidepressants, digitalis, antiarrhythmic drugs)(15) [ ]III. Short-term (ambulatory or inpatient) monitoring after therapeutic or diagnostic procedure requiring conscious sedation or anesthesia (eg, endoscopy, elective cardioversion) [X]IV. Acute cerebrovascular even[F](18) [ ]V. Massive blood transfusion (eg, at least 10 units of packed red blood cells in 24 hours) [ ]. Variceal bleeding after endoscopy, sclerotherapy, or IV vasopressin [ ]VII. Uncorrected electrolyte abnormalities associated with an increased risk of dangerous arrhythmia [G]; examples include [ ]a) Hyperkalemia with attributable ECG changes [ ]b) Potassium greater than 6.5 mmol/L (mEq/L) in a patient without history of chronic renal disease [ ]c) Prolonged QT attributed to hypokalemia, hypomagnesemia, or hypocalcemia [ ]VIII.Unexplained syncope or other neurologic event suspected of being due to arrhythmia due to a finding that increases risk; examples include(19)(20)(21): [ ]a) High-risk ECG findings (eg, bifascicular block, bradycardia, abnormal QT interval, ventricular pre- excitation) [ ]b) History of previous syncope due to arrhythmia [ ]c) Abnormal ventricular function (eg, reduced ejection fraction ) [ ]d) Exertional or supine syncope [ ]e) Concerning syncope characteristics (eg, sudden loss of consciousness without prodrome) [ ]f) Family history of sudden [ ]g) Use of arrhythmogenic medication [ ]h) Suspected cardiac ischemia [ ]i) Known channelopathy (eg, long QT syndrome, Brugada syndrome, or catecholaminergic paroxysmal ventricular tachycardia) [ ]j) Known structural heart disease (eg, hypertrophic cardiomyopathy , severe valvular disease) [ ]k) Palpitations preceding syncope The original [email or web address] content created by [employer] has been revised. The portions of the content which have been revised are identified through the use of italic text or in bold, and [facility] [facility] [employer] has neither reviewed nor approved the modified material. All other unmodified content is copyright [employer]. Please see references footnoted in the original [employer] edition 2016 Admission Criteria Met?: Yes BENI SY Jul 23, 2016 01:41
[2016-07-23 03:43] VITALS: BP 128/74
[2016-07-23 04:13] LABS: BASO % 1 % (0-3); EOS % 2 % (0-3); HEMATOCRIT 30.9 % (36.0-47.0); HEMOGLOBIN 10.2 g/dL (12.0-15.5); LYMPH # 2.1 x10^3/uL (1.0-4.8); LYMPH % 26 % (24-48); MEAN CORPUSCULAR HEMOGLOBIN 30 pg (25-35); MEAN CORPUSCULAR HGB CONC 33 g/dL (31-37); MEAN CORPUSCULAR VOLUME 92 fL (79-100); MONO % 9 % (0-9); NEUT % 63 % (31-73); PLATELET COUNT 243 x10^3/uL (140-400); RED BLOOD COUNT 3.35 x10^6/uL (3.50-5.40); RED CELL DISTRIBUTION WIDTH 16.4 % (11.5-14.5)
[2016-07-23 04:26] LABS: CALCIUM 8.7 mg/dL (8.5-10.1); CREATININE 1.3 mg/dL (0.6-1.0); GFR 54.1; POTASSIUM 3.8 mmol/L (3.5-5.1)
[2016-07-23 07:00] VITALS: BP 133/76
[2016-07-23] MEDS ORDERED: PANTOPRAZOLE 40 MG TABLET.DR. PO SCH (07:30)
--- NOTE | 2016-07-23 07:44 | EKG ---
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
[2016-07-23] MEDS ORDERED: ASPIRIN 325 MG TABLET PO SCH (08:00)
[2016-07-23] MEDS ORDERED: CARVEDILOL 12.5 MG TABLET. PO SCH (08:00)
[2016-07-23] MEDS ORDERED: CLOPIDOGREL BISULFATE 75 MG TABLET PO SCH (08:00)
[2016-07-23] MEDS: IV NORMAL SALINE 1000ML BAG 1,000 ML IV SCH (08:00)
[2016-07-23] MEDS ORDERED: ASPIRIN CHEWABLE 81 MG TABLET. PO SCH (09:00)
[2016-07-23] MEDS ORDERED: amLODIPine BESYLATE 10 MG TABLET PO SCH (09:00)
[2016-07-23] MEDS ORDERED: ISOSORBIDE MONONITRATE ER 30 MG TAB.ER.24H PO SCH (09:00)
[2016-07-23] MEDS ORDERED: FLUTICASONE 50MCG/NASAL SPRAY 16GM BOTTLE. NS SCH (09:00)
[2016-07-23] MEDS ORDERED: FERROUS SULFATE 325 MG TABLET. PO SCH (09:00)
[2016-07-23] MEDS: hydrALAZINE 25 MG TABLET PO SCH (09:23)
[2016-07-23] MEDS: NAPROXEN 500 MG TABLET PO SCH (09:25)
--- NOTE | 2016-07-23 10:57 | PDOC2 ---
NEUROLOGY CONSULT Date of Admission Date of Admission DATE: 07/23/16 TIME: 10:47 Reason for Consult Reason for Consult: Stroke symptoms Referring Physician Referring Physician: Dr. Purcell Source Source: Chart review, Patient History of Present Illness History of Present Illness The patient is a 41-year-old right-handed female just discharged yesterday from admission for stroke involving right hemiparesis. MRI of the brain showed multiple acute infarcts, including posterior right frontal lobe, right caudate nucleus, the junction of the left thalamus and internal capsule, left parietal- occipital junction and right cerebellum and possibly left cerebellum. The study also showed possible demyelinating disease which I felt was small vessel disease from her uncontrolled hypertension and diabetes. Urine drug screen was positive for marijuana and cocaine. The patient was feeling well yesterday and was discharged, but when she got home, she noticed severe headache and left- sided weakness and numbness. Urine drug screen this time is positive for opiates and cannabinoids and the patient admits that she did ingest these as well as smoking a cigarette. Past Medical History Cardiovascular: HTN CENTRAL NERVOUS SYSTEM: CVA Heme/Onc: Anemia NOS Psych: Anxiety, Depression Renal/: Other (Uterine fibroids) Endocrine: Diabetes Past Surgical History Past Surgical History: Family History Family History: No pertinent hx Social History Social History Unemployed, trying for disability, occasional cocaine, tobacco, alcohol; marijuana daily, Current Medications Current Medications Current Medications Sodium Chloride 1,000 ml @ 100 mls/hr Q10H IV Last administered on 07/22/16 20 :12; Start 07/22/16 at 20:12; Stop 07/23/16 at 06:11; Status DC Fentanyl Citrate (Fentanyl 2ml Vial) 50 mcg 1X ONCE IV Last administered on 21:06; Start 07/22/16 at 20:30; Stop 07/22/16 at 20:31; Status DC Prochlorperazine Edisylate (Compazine) 10 mg 1X ONCE IV Last administered on 21:06; Start 07/22/16 at 20:30; Stop 07/22/16 at 20:31; Status DC Diphenhydramine HCl (Benadryl) 25 mg 1X ONCE IVP Last administered on 21:06; Start 07/22/16 at 20:30; Stop 07/22/16 at 20:31; Status DC Amlodipine Besylate (Norvasc) 10 mg DAILY PO Last administered on 07/23/16 09: 24; Start 07/23/16 at 09:00 Aspirin (Children'S Aspirin) 81 mg DAILY PO ; Start 07/23/16 at 09:00 Carvedilol (Coreg) 12.5 mg BIDWMEALS PO Last administered on 07/23/16 09:16; Start 07/23/16 at 08:00 Clopidogrel Bisulfate (Plavix) 75 mg DAILYWBKFT PO Last administered on 09:16; Start 07/23/16 at 08:00 Ferrous Sulfate (Feosol) 325 mg DAILY PO Last administered on 07/23/16 09:25; Start 07/23/16 at 09:00 Fluticasone Propionate (Flonase) 2 spray DAILY NS Last administered on 09:17; Start 07/23/16 at 09:00 Hydralazine HCl (Apresoline) 25 mg TID PO Last administered on 07/23/16 09:23; Start 07/22/16 at 21:45 Isosorbide Mononitrate (Imdur) 30 mg DAILY PO Last administered on 07/23/16 09: 24; Start 07/23/16 at 09:00 Metformin HCl (Glucophage) 1,000 mg BIDWMEALS PO Last administered on 07/23/16 09:16; Start 07/23/16 at 08:00 Pantoprazole Sodium (Protonix) 40 mg DAILYAC PO Last administered on 07/23/16 09:16; Start 07/23/16 at 07:30 Atorvastatin Calcium (Lipitor) 10 mg HS PO ; Start 07/22/16 at 21:45 Naproxen (Naprosyn) 500 mg BID PO Last administered on 07/23/16 09:25; Start at 21:45 Ondansetron HCl (Zofran) 4 mg PRN Q8HRS PRN IV NAUSEA/VOMITING; Start 07/22/16 at 22:00; Stop 07/23/16 at 21:59 Fentanyl Citrate (Fentanyl 2ml Vial) 50 mcg PRN Q2HR PRN IV PAIN; Start at 22:00; Stop 07/23/16 at 21:59 Sodium Chloride 1,000 ml @ 100 mls/hr Q10H IV ; Start 07/22/16 at 22:00; Stop at 21:59 Acetaminophen (Tylenol) 650 mg PRN Q4HRS PRN PO FEVER; Start 07/22/16 at 22:00; Stop 07/23/16 at 21:59 Aspirin (Yenifer Aspirin) 325 mg DAILYWBKFT PO Last administered on 07/23/16t 09: 16; Start 07/23/16 at 08:00 Active Scripts Active Naproxen 500 Mg Tablet.dr 1 Tab PO BID [place] 5-325 Tablet (Acetaminophen/Hydrocodone Bitart) 1 Each Tablet 1-2 Tab PO Q4-6HRS Isosorbide Mononitrate Er (Isosorbide Mononitrate) 30 Mg Tab.er.24h 30 Mg PO DAILY Hydralazine Hcl 25 Mg Tablet 25 Mg PO TID Fluticasone Propionate Nasal [place] (Fluticasone Propionate) 16 Gm [place].susp 2 [place] NS DAILY Amlodipine Besylate 5 Mg Tablet 10 Mg PO DAILY Pantoprazole Sodium 40 Mg Tablet.dr 40 Mg PO DAILYAC Coreg (Carvedilol) 12.5 Mg Tablet 12.5 Mg PO BIDWMEALS Lovastatin 40 Mg Tablet 40 Mg PO DAILY Metformin Hcl 1,000 Mg Tablet 1,000 Mg PO BID Clopidogrel (Clopidogrel Bisulfate) 75 Mg Tablet 75 Mg PO DAILYWBKFT Reported [depression pill] 1 Tab PO DAILY Iron Supplement (Ferrous Sulfate) 325 Mg Tablet 1 Tab PO DAILY Aspirin 81 Mg Tab.chew 1 Tab PO DAILY Allergies Allergies: Coded Allergies: Sulfa (Sulfonamide Antibiotics) (Verified Allergy, Intermediate, hives, ) lisinopril (Verified Allergy, Intermediate, hives, 06/08/15) ROS Review of System Negative for fevers, chills, weight loss, shortness of breath, chest pain, indigestion, hematochezia, melena, dysuria. Full 14-point review systems is negative. Physical Exam Physical Examination PHYSICAL EXAMINATION: Vital signs: see above. General appearance is normal and in no acute distress. HEENT: Normocephalic and nontraumatic. Eyes, nose, ears, and throat are unremarkable. Neck is supple. No lymphadenopathy. No bruits are heard over the carotid artery. No crepitus. NEUROLOGICAL EXAMINATION: Mental Status Examination: Alert. Oriented to time, place, and person. Answers questions and follows commends. Pupils are equal round and reactive to light and accommodation. Funduscopic exam: No papilledema. Extraocular movements are intact. Visual field exam shows no defect on the direct confrontation. No motor or sensory deficits on the facial exam. Uvula in the midline and the soft palate elevated symmetrically. No deviation of the tongue to any direction. Gross hearing is normal. Shoulder shrug normal. Muscle tone is normal. Muscle strength is 5-/5 bilaterally. Deep tendon reflexes are 2+ all around. Plantar reflex is with flexion response bilaterally. [id number] test performance is accurate. Alternative movements are accurate. Gait not tested. Sensory exam shows no deficits. No cerebellar signs are elicited. Vitals VITALS Vital Signs Date Time Temp Pulse Resp B/P (MAP) Pulse Ox O2 Delivery O2 Flow Rate FiO2 07/23/16 09:24 78 133/76 07/23/16 07:00 98.2 18 98 Room Air 98.2 Labs Labs Laboratory Tests Test 07/22/16 20:23 07/22/16 20:30 07/22/16 21:13 07/23/16 03:00 Glucose (Fingerstick) 200 mg/dL (70-99) White Blood Count 9.2 x10^3/uL (4.0-11.0) Red Blood Count 3.74 x10^6/uL (3.50-5.40) Hemoglobin 11.5 g/dL (12.0-15.5) Hematocrit 34.1 % (36.0-47.0) Mean Corpuscular Volume 91 fL (79-100) Mean Corpuscular Hemoglobin 31 pg (25-35) Mean Corpuscular Hemoglobin Concent 34 g/dL (31-37) Red Cell Distribution Width 16.3 % (11.5-14.5) Platelet Count 267 x10^3/uL (140-400) Neutrophils (%) (Auto) 81 % (31-73) Lymphocytes (%) (Auto) 12 % (24-48) Monocytes (%) (Auto) 5 % (0-9) Eosinophils (%) (Auto) 1 % (0-3) Basophils (%) (Auto) 1 % (0-3) Neutrophils # (Auto) 7.5 x10^3uL (1.8-7.7) Lymphocytes # (Auto) 1.1 x10^3/uL (1.0-4.8) Monocytes # (Auto) 0.5 x10^3/uL (0.0-1.1) Eosinophils # (Auto) 0.1 x10^3/uL (0.0-0.7) Basophils # (Auto) 0.1 x10^3/uL (0.0-0.2) Prothrombin Time 13.6 SEC (11.7-14.0) Prothromb Time International Ratio 1.1 (0.8-1.1) Activated Partial Thromboplast Time 28 SEC (24-38) Sodium Level 135 mmol/L (136-145) 138 mmol/L (136-145) Potassium Level 4.9 mmol/L (3.5-5.1) 3.8 mmol/L (3.5-5.1) Chloride Level 101 mmol/L (98-107) 105 mmol/L (98-107) Carbon Dioxide Level 23 mmol/L (21-32) 23 mmol/L (21-32) Anion Gap 11 (6-14) 10 (6-14) Blood Urea Nitrogen 22 mg/dL (7-20) 24 mg/dL (7-20) Creatinine 1.4 mg/dL (0.6-1.0) 1.3 mg/dL (0.6-1.0) Estimated GFR (Cockcroft-Gault) 49.7 54.1 BUN/Creatinine Ratio 16 (6-20) Glucose Level 194 mg/dL (70-99) 144 mg/dL (70-99) Calcium Level 9.7 mg/dL (8.5-10.1) 8.7 mg/dL (8.5-10.1) Magnesium Level 1.7 mg/dL (1.8-2.4) Total Bilirubin 0.3 mg/dL (0.2-1.0) Aspartate Amino Transf (AST/SGOT) 31 U/L (15-37) Alanine Aminotransferase (ALT/SGPT) 27 U/L (14-59) Alkaline Phosphatase 73 U/L (46-116) Total Protein 8.3 g/dL (6.4-8.2) Albumin 4.3 g/dL (3.4-5.0) Albumin/Globulin Ratio 1.1 (1.0-1.7) Urine Collection Type Unknown Urine Color Red Urine Clarity Turbid Urine pH 5.0 Urine Specific [place] >=1.030 Urine Protein 100 mg/dL (NEG-TRACE) Urine Glucose (UA) Negative mg/dL (NEG) Urine Ketones (Stick) 15 mg/dL (NEG) Urine Blood Large (NEG) Urine Nitrite Negative (NEG) Urine Bilirubin Moderate (NEG) Urine Urobilinogen Dipstick 1.0 mg/dL (0.2 mg/dL) Urine Leukocyte Esterase Moderate (NEG) Urine RBC Tntc /HPF (0-2) Urine WBC 5-10 /HPF (0-4) Urine Squamous Epithelial Cells Mod /LPF Urine Bacteria 0 /HPF (0-FEW) Urine Hyaline Casts Moderate /HPF Urine Mucus Mod /LPF Urine Opiates Screen Pos (NEG) Urine Methadone Screen Neg (NEG) Urine Barbiturates Neg (NEG) Urine Phencyclidine Screen Neg (NEG) Urine Amphetamine/Methamphetamine Neg (NEG) Urine Benzodiazepines Screen Neg (NEG) Urine Cocaine Screen Neg (NEG) Urine Cannabinoids Screen Pos (NEG) Urine Ethyl Alcohol Neg (NEG) Test 07/23/16 03:25 07/23/16 07:14 White Blood Count 8.0 x10^3/uL (4.0-11.0) Red Blood Count 3.35 x10^6/uL (3.50-5.40) Hemoglobin 10.2 g/dL (12.0-15.5) Hematocrit 30.9 % (36.0-47.0) Mean Corpuscular Volume 92 fL (79-100) Mean Corpuscular Hemoglobin 30 pg (25-35) Mean Corpuscular Hemoglobin Concent 33 g/dL (31-37) Red Cell Distribution Width 16.4 % (11.5-14.5) Platelet Count 243 x10^3/uL (140-400) Neutrophils (%) (Auto) 63 % (31-73) Lymphocytes (%) (Auto) 26 % (24-48) Monocytes (%) (Auto) 9 % (0-9) Eosinophils (%) (Auto) 2 % (0-3) Basophils (%) (Auto) 1 % (0-3) Neutrophils # (Auto) 5.0 x10^3uL (1.8-7.7) Lymphocytes # (Auto) 2.1 x10^3/uL (1.0-4.8) Monocytes # (Auto) 0.7 x10^3/uL (0.0-1.1) Eosinophils # (Auto) 0.2 x10^3/uL (0.0-0.7) Basophils # (Auto) 0.0 x10^3/uL (0.0-0.2) Glucose (Fingerstick) 139 mg/dL (70-99) Laboratory Tests Test 07/22/16 20:23 07/22/16 20:30 07/22/16 21:13 07/23/16 03:00 Glucose (Fingerstick) 200 mg/dL (70-99) White Blood Count 9.2 x10^3/uL (4.0-11.0) Red Blood Count 3.74 x10^6/uL (3.50-5.40) Hemoglobin 11.5 g/dL (12.0-15.5) Hematocrit 34.1 % (36.0-47.0) Mean Corpuscular Volume 91 fL (79-100) Mean Corpuscular Hemoglobin 31 pg (25-35) Mean Corpuscular Hemoglobin Concent 34 g/dL (31-37) Red Cell Distribution Width 16.3 % (11.5-14.5) Platelet Count 267 x10^3/uL (140-400) Neutrophils (%) (Auto) 81 % (31-73) Lymphocytes (%) (Auto) 12 % (24-48) Monocytes (%) (Auto) 5 % (0-9) Eosinophils (%) (Auto) 1 % (0-3) Basophils (%) (Auto) 1 % (0-3) Neutrophils # (Auto) 7.5 x10^3uL (1.8-7.7) Lymphocytes # (Auto) 1.1 x10^3/uL (1.0-4.8) Monocytes # (Auto) 0.5 x10^3/uL (0.0-1.1) Eosinophils # (Auto) 0.1 x10^3/uL (0.0-0.7) Basophils # (Auto) 0.1 x10^3/uL (0.0-0.2) Prothrombin Time 13.6 SEC (11.7-14.0) Prothromb Time International Ratio 1.1 (0.8-1.1) Activated Partial Thromboplast Time 28 SEC (24-38) Sodium Level 135 mmol/L (136-145) 138 mmol/L (136-145) Potassium Level 4.9 mmol/L (3.5-5.1) 3.8 mmol/L (3.5-5.1) Chloride Level 101 mmol/L (98-107) 105 mmol/L (98-107) Carbon Dioxide Level 23 mmol/L (21-32) 23 mmol/L (21-32) Anion Gap 11 (6-14) 10 (6-14) Blood Urea Nitrogen 22 mg/dL (7-20) 24 mg/dL (7-20) Creatinine 1.4 mg/dL (0.6-1.0) 1.3 mg/dL (0.6-1.0) Estimated GFR (Cockcroft-Gault) 49.7 54.1 BUN/Creatinine Ratio 16 (6-20) Glucose Level 194 mg/dL (70-99) 144 mg/dL (70-99) Calcium Level 9.7 mg/dL (8.5-10.1) 8.7 mg/dL (8.5-10.1) Magnesium Level 1.7 mg/dL (1.8-2.4) Total Bilirubin 0.3 mg/dL (0.2-1.0) Aspartate Amino Transf (AST/SGOT) 31 U/L (15-37) Alanine Aminotransferase (ALT/SGPT) 27 U/L (14-59) Alkaline Phosphatase 73 U/L (46-116) Total Protein 8.3 g/dL (6.4-8.2) Albumin 4.3 g/dL (3.4-5.0) Albumin/Globulin Ratio 1.1 (1.0-1.7) Urine Collection Type Unknown Urine Color Red Urine Clarity Turbid Urine pH 5.0 Urine Specific [place] >=1.030 Urine Protein 100 mg/dL (NEG-TRACE) Urine Glucose (UA) Negative mg/dL (NEG) Urine Ketones (Stick) 15 mg/dL (NEG) Urine Blood Large (NEG) Urine Nitrite Negative (NEG) Urine Bilirubin Moderate (NEG) Urine Urobilinogen Dipstick 1.0 mg/dL (0.2 mg/dL) Urine Leukocyte Esterase Moderate (NEG) Urine RBC Tntc /HPF (0-2) Urine WBC 5-10 /HPF (0-4) Urine Squamous Epithelial Cells Mod /LPF Urine Bacteria 0 /HPF (0-FEW) Urine Hyaline Casts Moderate /HPF Urine Mucus Mod /LPF Urine Opiates Screen Pos (NEG) Urine Methadone Screen Neg (NEG) Urine Barbiturates Neg (NEG) Urine Phencyclidine Screen Neg (NEG) Urine Amphetamine/Methamphetamine Neg (NEG) Urine Benzodiazepines Screen Neg (NEG) Urine Cocaine Screen Neg (NEG) Urine Cannabinoids Screen Pos (NEG) Urine Ethyl Alcohol Neg (NEG) Test 07/23/16 03:25 07/23/16 07:14 White Blood Count 8.0 x10^3/uL (4.0-11.0) Red Blood Count 3.35 x10^6/uL (3.50-5.40) Hemoglobin 10.2 g/dL (12.0-15.5) Hematocrit 30.9 % (36.0-47.0) Mean Corpuscular Volume 92 fL (79-100) Mean Corpuscular Hemoglobin 30 pg (25-35) Mean Corpuscular Hemoglobin Concent 33 g/dL (31-37) Red Cell Distribution Width 16.4 % (11.5-14.5) Platelet Count 243 x10^3/uL (140-400) Neutrophils (%) (Auto) 63 % (31-73) Lymphocytes (%) (Auto) 26 % (24-48) Monocytes (%) (Auto) 9 % (0-9) Eosinophils (%) (Auto) 2 % (0-3) Basophils (%) (Auto) 1 % (0-3) Neutrophils # (Auto) 5.0 x10^3uL (1.8-7.7) Lymphocytes # (Auto) 2.1 x10^3/uL (1.0-4.8) Monocytes # (Auto) 0.7 x10^3/uL (0.0-1.1) Eosinophils # (Auto) 0.2 x10^3/uL (0.0-0.7) Basophils # (Auto) 0.0 x10^3/uL (0.0-0.2) Glucose (Fingerstick) 139 mg/dL (70-99) Images Images CT head: Findings: The ventricles and sulci are normal for the patient's age. No mass , midline shift , hemorrhage or acute infarct is present. Chronic-appearing calcification is seen in the left lentiform nucleus. Bone windows are normal without calvarial abnormality. The visualized orbits, paranasal sinuses and mastoid air cells are clear . Impression: No acute intracranial process detected. Assessment/Plan Assessment/Plan Impression: Left-sided motor and sensory symptoms with right-sided symptoms last week. MRI last week actually showed multiple bilateral infarcts. Workup was otherwise negative. I suspect she just had progression from her prior infarcts rather than anything new, possibly precipitated by drug use as well as the fact that she was hypertensive again. She was not eligible for TPA because of the recent strokes although I would have considered it if the deficit was more severe. Recommendations: Repeat brain MRI, this time with or without contrast because of the possibility of demyelinating disease. I admonished the patient to not use any street drugs Continue aspirin, blood pressure medication, diabetes medications, and statin Discharged later today depending on the MRI results. Thank you for letting me help of the patient's care. CAT DORADO MD Jul 23, 2016 10:57
[2016-07-23] MEDS ORDERED: GADOBUTROL 10 MMOL/10 ML VIAL IV ONE (13:00)
--- NOTE | 2016-07-23 14:18 | RAD ---
MR BRAIN WITH CONTRAST HISTORY: NEW STROKE ONSET, POSSIBLE DEMYELINATING DISEASE, NO SX HX, PRIOR MRI, 8ML GADAVIST COMPARISON: MRI brain from July 18, 2016 TECHNIQUE: Axial diffusion-weighted imaging was obtained. Additional axial FLAIR, and axial T2 weighted images were obtained. Sagittal and axial T1-weighted imaging was obtained prior to the administration of intravenous contrast material. Additional sagittal, axial, and coronal T1-weighted imaging was obtained after the administration of gadolinium based intravenous contrast material. FINDINGS: Again noted are scattered foci of restricted diffusion although some of these have subsided in conspicuity. No new lesions are identified. Notable lesions remains in the posterior right frontal lobe, left thalamus, and right cerebellar hemisphere. There are unchanged scattered areas of abnormal FLAIR signal hyperintensity, some of which are oriented in a perpendicular fashion to the lateral ventricles. One of these lesions shows significant enhancement which is located at the left temporoparietal junction. There is also a FLAIR hyperintense lesion in the left boudreaux radiata which shows some mild enhancement. However, there are other small areas of abnormal enhancement which are not associated with FLAIR hyperintense lesions. A small focus of enhancement in the right caudate head response to an area of restricted diffusion on the prior study but this has resolved on today's exam. A small focus of enhancement within the right putamen does not correspond with any current or former FLAIR or diffusion lesion. There is no acute intracranial hemorrhage. IMPRESSION: Findings are suspicious for presence of acute demyelinating process flare-up as there are at least 2 lesions showing FLAIR signal hyperintensity with associated enhancement in the left cerebral hemisphere which are suggestive of actively demyelinating plaques. The presence of scattered foci of restricted diffusion could reflect the presence of lacunar infarcts but can also be seen in some cases of active demyelination. After discussion with the caring physician, it was learned that the patient's blood pressure has been significantly elevated during this admission. PRES as an etiology is not excluded but the appearance is not typical. Electronically signed by: Bhupinder Shaffer MD (07/23/2016 2:15 PM)
[2016-07-23 14:34] VITALS: BP 138/76
--- NOTE | 2016-07-23 15:48 | PDOC ---
PROGRESS NOTES Chief Complaint Chief Complaint Possible demyelinating disease CVA? Drug abuse Tobacccoism HTN Noncompliance History of Present Illness History of Present Illness Pt tearfull. LADARIUS RN VSS Reviewed MRI Vitals Vitals Vital Signs Date Time Temp Pulse Resp B/P (MAP) Pulse Ox O2 Delivery O2 Flow Rate FiO2 07/23/16 14:34 98.0 88 18 138/76 (96) 97 Room Air 98.0 Physical Exam General: Alert, Oriented X3, Cooperative Heart: Regular rate, Normal S1, Normal S2 Lungs: Clear Abdomen: Normal bowel sounds, Soft Extremities: No clubbing, No cyanosis Skin: No rashes, No breakdown Labs LABS Laboratory Tests Test 07/22/16 20:23 07/22/16 20:30 07/22/16 21:13 07/23/16 03:00 Glucose (Fingerstick) 200 mg/dL (70-99) White Blood Count 9.2 x10^3/uL (4.0-11.0) Red Blood Count 3.74 x10^6/uL (3.50-5.40) Hemoglobin 11.5 g/dL (12.0-15.5) Hematocrit 34.1 % (36.0-47.0) Mean Corpuscular Volume 91 fL (79-100) Mean Corpuscular Hemoglobin 31 pg (25-35) Mean Corpuscular Hemoglobin Concent 34 g/dL (31-37) Red Cell Distribution Width 16.3 % (11.5-14.5) Platelet Count 267 x10^3/uL (140-400) Neutrophils (%) (Auto) 81 % (31-73) Lymphocytes (%) (Auto) 12 % (24-48) Monocytes (%) (Auto) 5 % (0-9) Eosinophils (%) (Auto) 1 % (0-3) Basophils (%) (Auto) 1 % (0-3) Neutrophils # (Auto) 7.5 x10^3uL (1.8-7.7) Lymphocytes # (Auto) 1.1 x10^3/uL (1.0-4.8) Monocytes # (Auto) 0.5 x10^3/uL (0.0-1.1) Eosinophils # (Auto) 0.1 x10^3/uL (0.0-0.7) Basophils # (Auto) 0.1 x10^3/uL (0.0-0.2) Prothrombin Time 13.6 SEC (11.7-14.0) Prothromb Time International Ratio 1.1 (0.8-1.1) Activated Partial Thromboplast Time 28 SEC (24-38) Sodium Level 135 mmol/L (136-145) 138 mmol/L (136-145) Potassium Level 4.9 mmol/L (3.5-5.1) 3.8 mmol/L (3.5-5.1) Chloride Level 101 mmol/L (98-107) 105 mmol/L (98-107) Carbon Dioxide Level 23 mmol/L (21-32) 23 mmol/L (21-32) Anion Gap 11 (6-14) 10 (6-14) Blood Urea Nitrogen 22 mg/dL (7-20) 24 mg/dL (7-20) Creatinine 1.4 mg/dL (0.6-1.0) 1.3 mg/dL (0.6-1.0) Estimated GFR (Cockcroft-Gault) 49.7 54.1 BUN/Creatinine Ratio 16 (6-20) Glucose Level 194 mg/dL (70-99) 144 mg/dL (70-99) Calcium Level 9.7 mg/dL (8.5-10.1) 8.7 mg/dL (8.5-10.1) Magnesium Level 1.7 mg/dL (1.8-2.4) Total Bilirubin 0.3 mg/dL (0.2-1.0) Aspartate Amino Transf (AST/SGOT) 31 U/L (15-37) Alanine Aminotransferase (ALT/SGPT) 27 U/L (14-59) Alkaline Phosphatase 73 U/L (46-116) Total Protein 8.3 g/dL (6.4-8.2) Albumin 4.3 g/dL (3.4-5.0) Albumin/Globulin Ratio 1.1 (1.0-1.7) Urine Collection Type Unknown Urine Color Red Urine Clarity Turbid Urine pH 5.[address] >=1.030 Urine Protein 100 mg/dL (NEG-TRACE) Urine Glucose (UA) Negative mg/dL (NEG) Urine Ketones (Stick) 15 mg/dL (NEG) Urine Blood Large (NEG) Urine Nitrite Negative (NEG) Urine Bilirubin Moderate (NEG) Urine Urobilinogen Dipstick 1.0 mg/dL (0.2 mg/dL) Urine Leukocyte Esterase Moderate (NEG) Urine RBC Tntc /HPF (0-2) Urine WBC 5-10 /HPF (0-4) Urine Squamous Epithelial Cells Mod /LPF Urine Bacteria 0 /HPF (0-FEW) Urine Hyaline Casts Moderate /HPF Urine Mucus Mod /LPF Urine Opiates Screen Pos (NEG) Urine Methadone Screen Neg (NEG) Urine Barbiturates Neg (NEG) Urine Phencyclidine Screen Neg (NEG) Urine Amphetamine/Methamphetamine Neg (NEG) Urine Benzodiazepines Screen Neg (NEG) Urine Cocaine Screen Neg (NEG) Urine Cannabinoids Screen Pos (NEG) Urine Ethyl Alcohol Neg (NEG) Test 07/23/16 03:25 07/23/16 07:14 White Blood Count 8.0 x10^3/uL (4.0-11.0) Red Blood Count 3.35 x10^6/uL (3.50-5.40) Hemoglobin 10.2 g/dL (12.0-15.5) Hematocrit 30.9 % (36.0-47.0) Mean Corpuscular Volume 92 fL (79-100) Mean Corpuscular Hemoglobin 30 pg (25-35) Mean Corpuscular Hemoglobin Concent 33 g/dL (31-37) Red Cell Distribution Width 16.4 % (11.5-14.5) Platelet Count 243 x10^3/uL (140-400) Neutrophils (%) (Auto) 63 % (31-73) Lymphocytes (%) (Auto) 26 % (24-48) Monocytes (%) (Auto) 9 % (0-9) Eosinophils (%) (Auto) 2 % (0-3) Basophils (%) (Auto) 1 % (0-3) Neutrophils # (Auto) 5.0 x10^3uL (1.8-7.7) Lymphocytes # (Auto) 2.1 x10^3/uL (1.0-4.8) Monocytes # (Auto) 0.7 x10^3/uL (0.0-1.1) Eosinophils # (Auto) 0.2 x10^3/uL (0.0-0.7) Basophils # (Auto) 0.0 x10^3/uL (0.0-0.2) Glucose (Fingerstick) 139 mg/dL (70-99) Review of Systems Review of Systems co weakness co sadness, tearfull Assessment and Plan Assessmemt and Plan Problems Medical Problems: (1) CVA (cerebral vascular accident) Status: Acute (2) Dehydration Status: Acute (3) Substance abuse Status: Acute Possible demyelinating disease CVA? Drug abuse Tobacccoism HTN Noncompliance Plan Await neuro input reguarding abnormal MRI PTOT asa consider immunosupression? Home meds Recheck labs Returned 2 phone calls to RN this am also Total time 31 minutes Problems: Comment Review of Relevant I have reviewed the following items cecilia (where applicable) has been applied. Labs Laboratory Tests Test 07/22/16 20:23 07/22/16 20:30 07/22/16 21:13 07/23/16 03:00 Glucose (Fingerstick) 200 mg/dL (70-99) White Blood Count 9.2 x10^3/uL (4.0-11.0) Red Blood Count 3.74 x10^6/uL (3.50-5.40) Hemoglobin 11.5 g/dL (12.0-15.5) Hematocrit 34.1 % (36.0-47.0) Mean Corpuscular Volume 91 fL (79-100) Mean Corpuscular Hemoglobin 31 pg (25-35) Mean Corpuscular Hemoglobin Concent 34 g/dL (31-37) Red Cell Distribution Width 16.3 % (11.5-14.5) Platelet Count 267 x10^3/uL (140-400) Neutrophils (%) (Auto) 81 % (31-73) Lymphocytes (%) (Auto) 12 % (24-48) Monocytes (%) (Auto) 5 % (0-9) Eosinophils (%) (Auto) 1 % (0-3) Basophils (%) (Auto) 1 % (0-3) Neutrophils # (Auto) 7.5 x10^3uL (1.8-7.7) Lymphocytes # (Auto) 1.1 x10^3/uL (1.0-4.8) Monocytes # (Auto) 0.5 x10^3/uL (0.0-1.1) Eosinophils # (Auto) 0.1 x10^3/uL (0.0-0.7) Basophils # (Auto) 0.1 x10^3/uL (0.0-0.2) Prothrombin Time 13.6 SEC (11.7-14.0) Prothromb Time International Ratio 1.1 (0.8-1.1) Activated Partial Thromboplast Time 28 SEC (24-38) Sodium Level 135 mmol/L (136-145) 138 mmol/L (136-145) Potassium Level 4.9 mmol/L (3.5-5.1) 3.8 mmol/L (3.5-5.1) Chloride Level 101 mmol/L (98-107) 105 mmol/L (98-107) Carbon Dioxide Level 23 mmol/L (21-32) 23 mmol/L (21-32) Anion Gap 11 (6-14) 10 (6-14) Blood Urea Nitrogen 22 mg/dL (7-20) 24 mg/dL (7-20) Creatinine 1.4 mg/dL (0.6-1.0) 1.3 mg/dL (0.6-1.0) Estimated GFR (Cockcroft-Gault) 49.7 54.1 BUN/Creatinine Ratio 16 (6-20) Glucose Level 194 mg/dL (70-99) 144 mg/dL (70-99) Calcium Level 9.7 mg/dL (8.5-10.1) 8.7 mg/dL (8.5-10.1) Magnesium Level 1.7 mg/dL (1.8-2.4) Total Bilirubin 0.3 mg/dL (0.2-1.0) Aspartate Amino Transf (AST/SGOT) 31 U/L (15-37) Alanine Aminotransferase (ALT/SGPT) 27 U/L (14-59) Alkaline Phosphatase 73 U/L (46-116) Total Protein 8.3 g/dL (6.4-8.2) Albumin 4.3 g/dL (3.4-5.0) Albumin/Globulin Ratio 1.1 (1.0-1.7) Urine Collection Type Unknown Urine Color Red Urine Clarity Turbid Urine pH 5.[address] >=1.030 Urine Protein 100 mg/dL (NEG-TRACE) Urine Glucose (UA) Negative mg/dL (NEG) Urine Ketones (Stick) 15 mg/dL (NEG) Urine Blood Large (NEG) Urine Nitrite Negative (NEG) Urine Bilirubin Moderate (NEG) Urine Urobilinogen Dipstick 1.0 mg/dL (0.2 mg/dL) Urine Leukocyte Esterase Moderate (NEG) Urine RBC Tntc /HPF (0-2) Urine WBC 5-10 /HPF (0-4) Urine Squamous Epithelial Cells Mod /LPF Urine Bacteria 0 /HPF (0-FEW) Urine Hyaline Casts Moderate /HPF Urine Mucus Mod /LPF Urine Opiates Screen Pos (NEG) Urine Methadone Screen Neg (NEG) Urine Barbiturates Neg (NEG) Urine Phencyclidine Screen Neg (NEG) Urine Amphetamine/Methamphetamine Neg (NEG) Urine Benzodiazepines Screen Neg (NEG) Urine Cocaine Screen Neg (NEG) Urine Cannabinoids Screen Pos (NEG) Urine Ethyl Alcohol Neg (NEG) Test 07/23/16 03:25 07/23/16 07:14 White Blood Count 8.0 x10^3/uL (4.0-11.0) Red Blood Count 3.35 x10^6/uL (3.50-5.40) Hemoglobin 10.2 g/dL (12.0-15.5) Hematocrit 30.9 % (36.0-47.0) Mean Corpuscular Volume 92 fL (79-100) Mean Corpuscular Hemoglobin 30 pg (25-35) Mean Corpuscular Hemoglobin Concent 33 g/dL (31-37) Red Cell Distribution Width 16.4 % (11.5-14.5) Platelet Count 243 x10^3/uL (140-400) Neutrophils (%) (Auto) 63 % (31-73) Lymphocytes (%) (Auto) 26 % (24-48) Monocytes (%) (Auto) 9 % (0-9) Eosinophils (%) (Auto) 2 % (0-3) Basophils (%) (Auto) 1 % (0-3) Neutrophils # (Auto) 5.0 x10^3uL (1.8-7.7) Lymphocytes # (Auto) 2.1 x10^3/uL (1.0-4.8) Monocytes # (Auto) 0.7 x10^3/uL (0.0-1.1) Eosinophils # (Auto) 0.2 x10^3/uL (0.0-0.7) Basophils # (Auto) 0.0 x10^3/uL (0.0-0.2) Glucose (Fingerstick) 139 mg/dL (70-99) Laboratory Tests Test 07/22/16 20:23 07/22/16 20:30 07/22/16 21:13 07/23/16 03:00 Glucose (Fingerstick) 200 mg/dL (70-99) White Blood Count 9.2 x10^3/uL (4.0-11.0) Red Blood Count 3.74 x10^6/uL (3.50-5.40) Hemoglobin 11.5 g/dL (12.0-15.5) Hematocrit 34.1 % (36.0-47.0) Mean Corpuscular Volume 91 fL (79-100) Mean Corpuscular Hemoglobin 31 pg (25-35) Mean Corpuscular Hemoglobin Concent 34 g/dL (31-37) Red Cell Distribution Width 16.3 % (11.5-14.5) Platelet Count 267 x10^3/uL (140-400) Neutrophils (%) (Auto) 81 % (31-73) Lymphocytes (%) (Auto) 12 % (24-48) Monocytes (%) (Auto) 5 % (0-9) Eosinophils (%) (Auto) 1 % (0-3) Basophils (%) (Auto) 1 % (0-3) Neutrophils # (Auto) 7.5 x10^3uL (1.8-7.7) Lymphocytes # (Auto) 1.1 x10^3/uL (1.0-4.8) Monocytes # (Auto) 0.5 x10^3/uL (0.0-1.1) Eosinophils # (Auto) 0.1 x10^3/uL (0.0-0.7) Basophils # (Auto) 0.1 x10^3/uL (0.0-0.2) Prothrombin Time 13.6 SEC (11.7-14.0) Prothromb Time International Ratio 1.1 (0.8-1.1) Activated Partial Thromboplast Time 28 SEC (24-38) Sodium Level 135 mmol/L (136-145) 138 mmol/L (136-145) Potassium Level 4.9 mmol/L (3.5-5.1) 3.8 mmol/L (3.5-5.1) Chloride Level 101 mmol/L (98-107) 105 mmol/L (98-107) Carbon Dioxide Level 23 mmol/L (21-32) 23 mmol/L (21-32) Anion Gap 11 (6-14) 10 (6-14) Blood Urea Nitrogen 22 mg/dL (7-20) 24 mg/dL (7-20) Creatinine 1.4 mg/dL (0.6-1.0) 1.3 mg/dL (0.6-1.0) Estimated GFR (Cockcroft-Gault) 49.7 54.1 BUN/Creatinine Ratio 16 (6-20) Glucose Level 194 mg/dL (70-99) 144 mg/dL (70-99) Calcium Level 9.7 mg/dL (8.5-10.1) 8.7 mg/dL (8.5-10.1) Magnesium Level 1.7 mg/dL (1.8-2.4) Total Bilirubin 0.3 mg/dL (0.2-1.0) Aspartate Amino Transf (AST/SGOT) 31 U/L (15-37) Alanine Aminotransferase (ALT/SGPT) 27 U/L (14-59) Alkaline Phosphatase 73 U/L (46-116) Total Protein 8.3 g/dL (6.4-8.2) Albumin 4.3 g/dL (3.4-5.0) Albumin/Globulin Ratio 1.1 (1.0-1.7) Urine Collection Type Unknown Urine Color Red Urine Clarity Turbid Urine pH 5.[address] >=1.030 Urine Protein 100 mg/dL (NEG-TRACE) Urine Glucose (UA) Negative mg/dL (NEG) Urine Ketones (Stick) 15 mg/dL (NEG) Urine Blood Large (NEG) Urine Nitrite Negative (NEG) Urine Bilirubin Moderate (NEG) Urine Urobilinogen Dipstick 1.0 mg/dL (0.2 mg/dL) Urine Leukocyte Esterase Moderate (NEG) Urine RBC Tntc /HPF (0-2) Urine WBC 5-10 /HPF (0-4) Urine Squamous Epithelial Cells Mod /LPF Urine Bacteria 0 /HPF (0-FEW) Urine Hyaline Casts Moderate /HPF Urine Mucus Mod /LPF Urine Opiates Screen Pos (NEG) Urine Methadone Screen Neg (NEG) Urine Barbiturates Neg (NEG) Urine Phencyclidine Screen Neg (NEG) Urine Amphetamine/Methamphetamine Neg (NEG) Urine Benzodiazepines Screen Neg (NEG) Urine Cocaine Screen Neg (NEG) Urine Cannabinoids Screen Pos (NEG) Urine Ethyl Alcohol Neg (NEG) Test 07/23/16 03:25 07/23/16 07:14 White Blood Count 8.0 x10^3/uL (4.0-11.0) Red Blood Count 3.35 x10^6/uL (3.50-5.40) Hemoglobin 10.2 g/dL (12.0-15.5) Hematocrit 30.9 % (36.0-47.0) Mean Corpuscular Volume 92 fL (79-100) Mean Corpuscular Hemoglobin 30 pg (25-35) Mean Corpuscular Hemoglobin Concent 33 g/dL (31-37) Red Cell Distribution Width 16.4 % (11.5-14.5) Platelet Count 243 x10^3/uL (140-400) Neutrophils (%) (Auto) 63 % (31-73) Lymphocytes (%) (Auto) 26 % (24-48) Monocytes (%) (Auto) 9 % (0-9) Eosinophils (%) (Auto) 2 % (0-3) Basophils (%) (Auto) 1 % (0-3) Neutrophils # (Auto) 5.0 x10^3uL (1.8-7.7) Lymphocytes # (Auto) 2.1 x10^3/uL (1.0-4.8) Monocytes # (Auto) 0.7 x10^3/uL (0.0-1.1) Eosinophils # (Auto) 0.2 x10^3/uL (0.0-0.7) Basophils # (Auto) 0.0 x10^3/uL (0.0-0.2) Glucose (Fingerstick) 139 mg/dL (70-99) Microbiology 07/22/16 Urine Culture - Preliminary, Resulted 07/22/16 Urine Culture Result 1 (ANA) - Preliminary, Resulted Medications Current Medications Sodium Chloride 1,000 ml @ 100 mls/hr Q10H IV Last administered on 07/22/16t 20 :12; Start 07/22/16 at 20:12; Stop 07/23/16 at 06:11; Status DC Fentanyl Citrate (Fentanyl 2ml Vial) 50 mcg 1X ONCE IV Last administered on 21:06; Start 07/22/16 at 20:30; Stop 07/22/16 at 20:31; Status DC Prochlorperazine Edisylate (Compazine) 10 mg 1X ONCE IV Last administered on 21:06; Start 07/22/16 at 20:30; Stop 07/22/16 at 20:31; Status DC Diphenhydramine HCl (Benadryl) 25 mg 1X ONCE IVP Last administered on 21:06; Start 07/22/16 at 20:30; Stop 07/22/16 at 20:31; Status DC Amlodipine Besylate (Norvasc) 10 mg DAILY PO Last administered on 07/23/16 09: 24; Start 07/23/16 at 09:00 Aspirin (Children'S Aspirin) 81 mg DAILY PO ; Start 07/23/16 at 09:00 Carvedilol (Coreg) 12.5 mg BIDWMEALS PO Last administered on 07/23/16 09:16; Start 07/23/16 at 08:00 Clopidogrel Bisulfate (Plavix) 75 mg DAILYWBKFT PO Last administered on 09:16; Start 07/23/16 at 08:00 Ferrous Sulfate (Feosol) 325 mg DAILY PO Last administered on 07/23/16 09:25; Start 07/23/16 at 09:00 Fluticasone Propionate (Flonase) 2 spray DAILY NS Last administered on 09:17; Start 07/23/16 at 09:00 Hydralazine HCl (Apresoline) 25 mg TID PO Last administered on 07/23/16 09:23; Start 07/22/16 at 21:45 Isosorbide Mononitrate (Imdur) 30 mg DAILY PO Last administered on 07/23/16 09: 24; Start 07/23/16 at 09:00 Metformin HCl (Glucophage) 1,000 mg BIDWMEALS PO Last administered on 07/23/16 09:16; Start 07/23/16 at 08:00 Pantoprazole Sodium (Protonix) 40 mg DAILYAC PO Last administered on 07/23/16 09:16; Start 07/23/16 at 07:30 Atorvastatin Calcium (Lipitor) 10 mg HS PO ; Start 07/22/16 at 21:45 Naproxen (Naprosyn) 500 mg BID PO Last administered on 07/23/16 09:25; Start at 21:45 Ondansetron HCl (Zofran) 4 mg PRN Q8HRS PRN IV NAUSEA/VOMITING; Start 07/22/16 at 22:00; Stop 07/23/16 at 21:59 Fentanyl Citrate (Fentanyl 2ml Vial) 50 mcg PRN Q2HR PRN IV PAIN; Start at 22:00; Stop 07/23/16 at 21:59 Sodium Chloride 1,000 ml @ 100 mls/hr Q10H IV ; Start 07/22/16 at 22:00; Stop at 21:59 Acetaminophen (Tylenol) 650 mg PRN Q4HRS PRN PO FEVER; Start 07/22/16 at 22:00; Stop 07/23/16 at 21:59 Aspirin (Yenifer Aspirin) 325 mg DAILYWBKFT PO Last administered on 07/23/16 09: 16; Start 07/23/16 at 08:00 Gadobutrol (Gadavist) 8 mmol 1X ONCE IV Last administered on 07/23/16 13:15; Start 07/23/16 at 13:00; Stop 07/23/16 at 13:05; Status DC Active Scripts Active [place] 5-325 Tablet (Acetaminophen/Hydrocodone Bitart) 1 Each Tablet 1-2 Tab PO Q4-6HRS Isosorbide Mononitrate Er (Isosorbide Mononitrate) 30 Mg Tab.er.24h 30 Mg PO DAILY Hydralazine Hcl 25 Mg Tablet 25 Mg PO TID Fluticasone Propionate Nasal [place] (Fluticasone Propionate) 16 Gm [place].susp 2 [place] NS DAILY Amlodipine Besylate 5 Mg Tablet 10 Mg PO DAILY Pantoprazole Sodium 40 Mg Tablet.dr 40 Mg PO DAILYAC Coreg (Carvedilol) 12.5 Mg Tablet 12.5 Mg PO BIDWMEALS Lovastatin 40 Mg Tablet 40 Mg PO DAILY Metformin Hcl 1,000 Mg Tablet 1,000 Mg PO BID Clopidogrel (Clopidogrel Bisulfate) 75 Mg Tablet 75 Mg PO DAILYWBKFT Reported [depression pill] 1 Tab PO DAILY Iron Supplement (Ferrous Sulfate) 325 Mg Tablet 1 Tab PO DAILY Aspirin 81 Mg Tab.chew 1 Tab PO DAILY Vitals/I & O Vital Sign - Last 24 Hours 07/22/16 07/22/16 07/22/16 07/22/16 20:00 20:23 20:25 20:33 Temp 98.8 98.8 98.8 98.8 Pulse 82 84 82 78 Resp 16 16 16 16 B/P (MAP) 169/100 (123) 158/95 (116) 169/100 (123) 128/79 (95) Pulse Ox 100 100 100 100 O2 Delivery Room Air Room Air Room Air Room Air 07/22/16 07/22/16 07/22/16 07/22/16 20:59 21:03 21:06 23:07 Pulse 80 78 Resp 16 16 16 B/P (MAP) 162/80 (107) 153/75 (101) Pulse Ox 100 100 O2 Delivery Room Air Room Air Room Air Room Air 07/22/16 07/23/16 07/23/16 07/23/16 23:21 03:43 07:00 08:00 Temp 98.5 98.5 98.2 98.5 98.5 98.2 Pulse 76 78 78 Resp 18 18 18 B/P (MAP) 127/76 (93) 128/74 (92) 133/76 (95) Pulse Ox 98 96 98 O2 Delivery Room Air Room Air Room Air Room Air 07/23/16 07/23/16 07/23/16 07/23/16 09:16 09:23 09:24 09:24 Pulse 78 78 78 78 B/P (MAP) 133/76 133/76 133/76 133/76 07/23/16 14:34 Temp 98.0 98.0 Pulse 88 Resp 18 B/P (MAP) 138/76 (96) Pulse Ox 97 O2 Delivery Room Air Intake and Output 07/22/16 07/22/16 07/23/16 15:00 23:00 07:00 Intake Total 0 ml Balance 0 ml BYRON DINH III DO Jul 23, 2016 15:48
== END 2016-07-23 15:35 | disposition left against medical advice (07) | DRG 65 ==
LOC: ER 19:52 → 6 SOUTH 21:07
PROVIDERS: ADMIT Internal Medicine Hematology & Oncology; ATTEND Internal Medicine Hematology & Oncology
DX: I63.9 Cerebral infarction, unspecified (principal); G81.91 Hemiplegia, unspecified affecting right dominant side; I10 Essential (primary) hypertension; E11.9 Type 2 diabetes mellitus without complications; F41.9 Anxiety disorder, unspecified; F32.9 Major depressive disorder, single episode, unspecified; E86.0 Dehydration; D64.9 Anemia, unspecified; R29.810 Facial weakness; R47.81 Slurred speech; D25.9 Leiomyoma of uterus, unspecified; F12.90 Cannabis use, unspecified, uncomplicated; Z79.899 Other long term (current) drug therapy; Z79.82 Long term (current) use of aspirin; Z95.5 Presence of coronary angioplasty implant and graft; Z91.19 Patient's noncompliance with other medical treatment and regimen; Z79.1 Long term (current) use of non-steroidal anti-inflammatories (NSAID); Z79.4 Long term (current) use of insulin; Z88.8 Allergy status to other drugs, medicaments and biological substances; Z88.2 Allergy status to sulfonamides
CPT/HCPCS: 36415; 70450; 70553; 80048; 80053; 81001; 82962; 83735; 85027; 85610; 85730; 87086; 93005; 96361; 96374; 96375; A9585; G0481; J0780; J1200; J3010; J7030; 99285-25

== ENCOUNTER 2016-09-03 13:42 | Emergency (ER) | payer MEDICAID ==
[~2016-09-03 13:42] MED LIST changes: +ASPI-612 PO; +ASPI-630 PO; -ASPI81TA2 PO; -ASPI81TA9 PO
--- NOTE | 2016-09-03 14:24 | PHYS DOC ---
Past Medical History Past Medical History: Anemia, Anxiety, CVA, Diabetes-Type II, Hypertension Additional Past Medical Histor: R arm and R knee numbness from CVA Past Surgical History: Additional Past Surgical Histo: heart stents Alcohol Use: Occasionally Drug Use: Marijuana Adult General Chief Complaint Chief Complaint: ANXIETY/PANIC ATTACK HPI HPI Patient is a 41 year old -[place] female who presents with right-sided dental pain, she states she got to the bone the right upper side this morning when she got home she had had a chance to get her pain meds filled yet she's having severe pain she started hyperventilating and her feet turned numb. She denies any nausea vomiting diarrhea or shortness of breath or chest pain. She states she hasn't had anything to eat as of yet prior to her procedure. She denies any change in her voice or trouble swallowing. Review of Systems Review of Systems Constitutional: Denies fever or chills [] Eyes: Denies change in visual acuity, redness, or eye pain [] HENT: Denies nasal congestion or sore throat [] Respiratory: Denies cough or shortness of breath [] Cardiovascular: No additional information not addressed in HPI [] GI: Denies abdominal pain, nausea, vomiting, bloody stools or diarrhea [] : Denies dysuria or hematuria [] Musculoskeletal: Denies back pain or joint pain [] Integument: Denies rash or skin lesions [] Neurologic: Denies headache, focal weakness or sensory changes [] Endocrine: Denies polyuria or polydipsia [] Current Medications Current Medications Current Medications Medications (Trade) Dose Ordered Sig/Payton Start Time Stop Time Status Last Admin Dose Admin Diphenhydramine HCl (Benadryl) 50 mg STK-MED ONCE 09/03/16 15:02 09/03/16 15:03 DC Morphine Sulfate 2 mg PRN Q15MIN PRN 09/03/16 14:45 09/04/16 14:44 09/03/16 15:04 2 MG Sodium Chloride 1,000 ml @ 1,000 mls/hr 1X ONCE 09/03/16 15:30 09/03/16 16:29 DC 09/03/16 15:11 1,000 MLS/HR Allergies Allergies Allergies Coded Allergies Type Severity Reaction Last Updated Verified Sulfa (Sulfonamide Antibiotics) Allergy Intermediate hives 06/08/15 Yes lisinopril Allergy Intermediate hives 06/08/15 Yes Physical Exam Physical Exam Constitutional: Well developed, well nourished, no acute distress, non-toxic appearance. [] HENT: Normocephalic, atraumatic, bilateral external ears normal, oropharynx moist, no oral exudates, nose normal. Tooth #3 pulled with no signs of bleeding or trauma. No Juanjose angina. Posterior pharynx clear Eyes: PERRLA, EOMI, conjunctiva normal, no discharge. [] Neck: Normal range of motion, no tenderness, supple, no stridor. [] Cardiovascular:Heart rate regular rhythm, no murmur [] Lungs & Thorax: Bilateral breath sounds clear to auscultation [] Abdomen: Bowel sounds normal, soft, no tenderness, no masses, no pulsatile masses. [] Skin: Warm, dry, no erythema, no rash. [] Back: No tenderness, no CVA tenderness. [] Extremities: No tenderness, no cyanosis, no clubbing, ROM intact, no edema. [] Neurologic: Alert and oriented X 3, normal motor function, normal sensory function, no focal deficits noted. [] Psychologic: Affect normal, judgement normal, mood normal. [] Current Patient Data Vital Signs Vital Signs Date Time Temp Pulse Resp B/P (MAP) Pulse Ox O2 Delivery O2 Flow Rate FiO2 09/03/16 16:29 74 16 159/74 (102) 99 Room Air 09/03/16 13:55 98.5 98.5 Lab Values Laboratory Tests Test 09/03/16 13:55 09/03/16 14:28 09/03/16 14:50 09/03/16 14:56 POC Urine HCG, Qualitative Hcg negative (Negative) Urine Test Negative (NEG) Urine Collection Type Unknown Urine Color Yellow Urine Clarity Hazy Urine pH 6.5 Urine Specific [place] 1.010 Urine Protein Negative mg/dL (NEG-TRACE) Urine Glucose (UA) 250 mg/dL (NEG) Urine Ketones (Stick) Negative mg/dL (NEG) Urine Blood Negative (NEG) Urine Nitrite Negative (NEG) Urine Bilirubin Negative (NEG) Urine Urobilinogen Dipstick 0.2 mg/dL (0.2 mg/dL) Urine Leukocyte Esterase Negative (NEG) Urine RBC 0 /HPF (0-2) Urine WBC Occ /HPF (0-4) Urine Squamous Epithelial Cells Many /LPF Urine Bacteria Few /HPF (0-FEW) White Blood Count 9.9 x10^3/uL (4.0-11.0) Red Blood Count 3.69 x10^6/uL (3.50-5.40) Hemoglobin 11.1 g/dL (12.0-15.5) L Hematocrit 33.2 % (36.0-47.0) L Mean Corpuscular Volume 90 fL (79-100) Mean Corpuscular Hemoglobin 30 pg (25-35) Mean Corpuscular Hemoglobin Concent 33 g/dL (31-37) Red Cell Distribution Width 17.0 % (11.5-14.5) H Platelet Count 351 x10^3/uL (140-400) Neutrophils (%) (Auto) 72 % (31-73) Lymphocytes (%) (Auto) 16 % (24-48) L Monocytes (%) (Auto) 9 % (0-9) Eosinophils (%) (Auto) 2 % (0-3) Basophils (%) (Auto) 1 % (0-3) Neutrophils # (Auto) 7.1 x10^3uL (1.8-7.7) Lymphocytes # (Auto) 1.6 x10^3/uL (1.0-4.8) Monocytes # (Auto) 0.9 x10^3/uL (0.0-1.1) Eosinophils # (Auto) 0.2 x10^3/uL (0.0-0.7) Basophils # (Auto) 0.1 x10^3/uL (0.0-0.2) Sodium Level 136 mmol/L (136-145) Potassium Level 3.9 mmol/L (3.5-5.1) Chloride Level 100 mmol/L (98-107) Carbon Dioxide Level 26 mmol/L (21-32) Anion Gap 10 (6-14) Blood Urea Nitrogen 12 mg/dL (7-20) Creatinine 0.9 mg/dL (0.6-1.0) Estimated GFR (Cockcroft-Gault) 82.7 BUN/Creatinine Ratio 13 (6-20) Glucose Level 197 mg/dL (70-99) H Calcium Level 9.6 mg/dL (8.5-10.1) Total Bilirubin 0.2 mg/dL (0.2-1.0) Aspartate Amino Transferase (AST) 19 U/L (15-37) Alanine Aminotransferase (ALT) 23 U/L (14-59) Alkaline Phosphatase 89 U/L (46-116) Total Protein 8.5 g/dL (6.4-8.2) H Albumin 3.9 g/dL (3.4-5.0) Albumin/Globulin Ratio 0.8 (1.0-1.7) L Laboratory Tests 09/03/16 14:56 Laboratory Tests 09/03/16 14:56 EKG EKG [] Radiology/Procedures Radiology/Procedures [] Impressions: Facial pain Course & Med Decision Making Course & Med Decision Making Pertinent Labs and Imaging studies reviewed. (See chart for details) She received IV fluids, pain meds and feels better now. She's being discharged home with return precautions. She has a prescription for Motrin and Vendor from her dentist. Patient's agreeable plans in stable condition this time. Dragon Disclaimer Dragon Disclaimer This electronic medical record was generated, in whole or in part, using a voice recognition dictation system. Departure Departure Impression: Primary Impression: Pain, dental Disposition: 01 HOME, SELF-CARE Condition: STABLE Referrals: REJI CORREA MD (PCP) Patient Instructions: Dental Pain, [id number] Additional Instructions: You were seen today for your pain after having her teeth pulled. He received IV fluids and morphine. Your being discharged home now. Please fill the pain meds prescription he received from [facility] [place]. Please keep your follow-up appointment with him. Return ER for severe uncontrolled pain, nausea vomiting, high fevers or other concerns. ABNER ESCOBEDO MD Sep 03, 2016 14:24
[2016-09-03] MEDS: MORPHINE SULFATE 2 MG/ML DISP.SYRIN. IV/SQ PRN ×2 (14:53→15:04)
[2016-09-03 14:57] LABS: BILIRUBIN,URINE NEGATIVE (NEG); GLUCOSE,URINE 250 mg/dL (NEG); NITRITE,URINE NEGATIVE (NEG); PH,URINE 6.5; PROTEIN,URINE NEGATIVE (NEG-TRACE); UROBILINOGEN,URINE 0.2 mg/dL (0.2 mg/dL)
[2016-09-03] MEDS ORDERED: diphenhydrAMINE 50 MG/ML VIAL ONE (15:02)
[2016-09-03 15:10] LABS: BACTERIA,URINE FEW /HPF (0-FEW); RBC,URINE 0 /HPF (0-2); SQUAMOUS EPITHELIAL CELL,UR MANY /LPF; WBC,URINE OCC /HPF (0-4)
[2016-09-03 15:14] LABS: BASO # 0.1 x10^3/uL (0.0-0.2); BASO % 1 % (0-3); EOS % 2 % (0-3); HEMATOCRIT 33.2 % (36.0-47.0); HEMOGLOBIN 11.1 g/dL (12.0-15.5); LYMPH # 1.6 x10^3/uL (1.0-4.8); LYMPH % 16 % (24-48); MEAN CORPUSCULAR HEMOGLOBIN 30 pg (25-35); MEAN CORPUSCULAR HGB CONC 33 g/dL (31-37); MEAN CORPUSCULAR VOLUME 90 fL (79-100); MONO % 9 % (0-9); NEUT % 72 % (31-73); PLATELET COUNT 351 x10^3/uL (140-400); RED BLOOD COUNT 3.69 x10^6/uL (3.50-5.40); WHITE BLOOD COUNT 9.9 x10^3/uL (4.0-11.0)
[2016-09-03 15:26] LABS: NEG OBC UR NEG; POS OBC UR POS
[2016-09-03] MEDS ORDERED: IV NORMAL SALINE 1000ML BAG 1,000 ML IV ONE (15:30)
[2016-09-03 15:33] LABS: CALCIUM 9.6 mg/dL (8.5-10.1); CREATININE 0.9 mg/dL (0.6-1.0); GFR 82.7; POTASSIUM 3.9 mmol/L (3.5-5.1)
[2016-09-03 15:38] LABS: ALBUMIN 3.9 g/dL (3.4-5.0); ALBUMIN/GLOBULIN RATIO 0.8 (1.0-1.7); TOTAL BILIRUBIN 0.2 mg/dL (0.2-1.0); TOTAL PROTEIN 8.5 g/dL (6.4-8.2)
[2016-09-03 16:29] VITALS: BP 159/74
== END 2016-09-03 16:50 | disposition home or self-care (01) ==
LOC: ER 13:42
DX: K08.89 Other specified disorders of teeth and supporting structures (principal); R20.0 Anesthesia of skin; F41.9 Anxiety disorder, unspecified; E11.9 Type 2 diabetes mellitus without complications; I10 Essential (primary) hypertension; F12.10 Cannabis abuse, uncomplicated; Z88.2 Allergy status to sulfonamides; Z88.8 Allergy status to other drugs, medicaments and biological substances; Z95.5 Presence of coronary angioplasty implant and graft; Z86.73 Personal history of transient ischemic attack (TIA), and cerebral infarction without residual deficits
CPT/HCPCS: 36415; 80053; 81001; 81025; 84703; 85027; 96361; 96374; 99284; J2270; J7030

== ENCOUNTER 2017-07-10 15:58 | Emergency (ER) | payer SELFPAY | END 2017-07-10 18:32 | disposition home or self-care (01) | LOC: ER 18:32 | DX: N61.0 Mastitis without abscess (principal); R68.84 Jaw pain; F41.9 Anxiety disorder, unspecified; E11.9 Type 2 diabetes mellitus without complications; I10 Essential (primary) hypertension; F12.10 Cannabis abuse, uncomplicated; Z88.2 Allergy status to sulfonamides; Z88.8 Allergy status to other drugs, medicaments and biological substances; Z86.73 Personal history of transient ischemic attack (TIA), and cerebral infarction without residual deficits | CPT/HCPCS: 76641; 99284 ==

== ENCOUNTER → 2017-08-21 | Outpatient (CLI) | payer SELFPAY ==
[2017-08-21] MEDS: GADOBUTROL 7.5 MMOL/7.5 ML VIAL IV (13:37)
== END | disposition home or self-care (01) ==
LOC: MRI 12:34
DX: G93.89 Other specified disorders of brain (principal); I10 Essential (primary) hypertension; E11.9 Type 2 diabetes mellitus without complications; K21.9 Gastro-esophageal reflux disease without esophagitis
CPT/HCPCS: 70552; A9585

== ENCOUNTER 2017-12-31 12:22 | Emergency (ER) | payer OTHER ==
[~2017-12-31] VITALS: Ht 162.6 cm; Wt 74.8 kg
[~2017-12-31 12:22] MED LIST changes: -AMLO5TAB2 PO; +AMLO5TAB7 PO; +CEPH-264 PO; +HYDR-2758 PO; +HYDR-3164 PO; -HYDR-971 PO; -METF-620 PO; +METF10007 PO; +TRAM50TA PO
[2017-12-31] MEDS ORDERED: LIDOCAINE 1% Multi-Dose 20 ML VIAL. INJ ONE (13:00)
[2017-12-31] MEDS ORDERED: HYDROcodone/APAP 5/325MG 1 TAB TABLET PO ONE (14:45)
[2017-12-31] MEDS ORDERED: HYDR-3164 PO (14:46)
[2017-12-31] MEDS ORDERED: CLIN300C8 PO (14:46)
[2017-12-31 15:00] VITALS: BP 169/88
--- NOTE | 2017-12-31 20:02 | PHYS DOC ---
Past Medical History Past Medical History: Anemia, Anxiety, CVA, Diabetes-Type II, Hypertension Additional Past Medical Histor: R arm and R knee numbness from CVA, MS, MYASTHENIA GRAVIS Past Surgical History: , Other Additional Past Surgical Histo: heart stents Additional Information: 1/2 PPD. Alcohol Use: Occasionally Drug Use: Marijuana Social History Narrative: Last smoked 2 days ago. Adult General Chief Complaint Chief Complaint: ABSCESS HPI HPI Patient is a 42 year old female who presents with abscess on the labia. The patient does have a prior history of similar episodes. This episode is been present over the last 2-3 days but the pain became severe overnight last night. She complains of pain and swelling over the left labia. She is currently on her menses. She denies additional vaginal complaints. No pelvic pain. No fever. She also complains of a small similar area over the left breast just above the nipple. She has had this also previously in the past and has been treated with antibiotics. Review of Systems Review of Systems Constitutional: Denies fever HENT: Denies nasal congestion GI: Denies abdominal pain, nausea, vomiting Musculoskeletal: Denies back pain Integument: Denies rash Neurologic: Denies headache All other systems were reviewed and found to be within normal limits, except as documented in this note. Current Medications Current Medications Current Medications Medications (Trade) Dose Ordered Sig/Payton Start Time Stop Time Status Last Admin Dose Admin Acetaminophen/ Hydrocodone Bitart (Lortab 5/325) 2 tab 1X ONCE 12/31/17 14:45 12/31/17 14:46 DC Lidocaine HCl (Lidocaine 1% 20ml Vial) 20 ml 1X ONCE 12/31/17 13:00 12/31/17 13:01 DC 12/31/17 13:00 20 ML Allergies Allergies Allergies Coded Allergies Type Severity Reaction Last Updated Verified Sulfa (Sulfonamide Antibiotics) Allergy Intermediate hives 06/08/15 Yes lisinopril Allergy Intermediate hives 06/08/15 Yes Physical Exam Physical Exam Constitutional: Well developed, well nourished HENT: Normocephalic, atraumatic, bilateral external ears normal, oropharynx moist Neck: Normal range of motion Lungs & Thorax: Bilateral breath sounds clear Abdomen: Bowel sounds normal, soft Skin: Warm, dry Back: No tenderness Neurologic: Alert and oriented X 3 Psychologic: Affect normal Genital exam: there is a 2 cm area of fluctuance, swelling, pain over the left labia majora Current Patient Data Vital Signs Vital Signs Date Time Temp Pulse Resp B/P (MAP) Pulse Ox O2 Delivery O2 Flow Rate FiO2 12/31/17 15:00 86 15 169/88 (115) 98 Room Air 12/31/17 12:31 98.2 98.2 EKG EKG [] Radiology/Procedures Radiology/Procedures [] Course & Med Decision Making Course & Med Decision Making Pertinent Labs and Imaging studies reviewed. (See chart for details) Patient is evaluated in the ER for abscess over the left labia. Incision and drainage was performed. See procedure note below. Patient was discharged home with clindamycin and medication for pain. Not documented above, is an area of about 3 cm of redness and some swelling on the left breast just superior to the nipple at the 2 o'clock position. This area did not seem fluctuant. Patient is treated with antibiotics for this. She is advised to come back to the ER in 48 hours for recheck. No packing is placed in the incision and drainage site. Procedure note. Incision and drainage of left labia. The area was cleaned with Betadine. 1% lidocaine was used to provide local anesthesia, 2 mL. An 11 blade scalpel was used to make a puncture wound in the abscess. There was immediate return of purulent material. In an attempt to limit scarring, a very small incision was made. No packing was placed. Patient tolerated the procedure well. The examination and procedure were both accompanied by a female medical instrument cable fabricator. Dragon Disclaimer Dragon Disclaimer This electronic medical record was generated, in whole or in part, using a voice recognition dictation system. Departure Departure Impression: Primary Impression: Abscess of labia majora Disposition: 01 HOME, SELF-CARE Condition: GOOD Patient Instructions: Abscess, Care After Scripts Hydrocodone/Apap 5-325 (NORCO 5-325 TABLET) 1 Each Tablet 1-2 EACH PO PRN Q6HRS PRN for SEVERE PAIN, #15 as needed for pain Prov: ILIA LYNCH DO 12/31/17 Clindamycin Hcl (CLINDAMYCIN HCL) 300 Mg Capsule 300 MG PO QID for 7 Days, #28 CAP Prov: ILIA LYNCH DO 12/31/17 ILIA LYNCH DO Dec 31, 2017 20:01
== END 2017-12-31 15:09 | disposition home or self-care (01) ==
LOC: ER 12:22
DX: N76.4 Abscess of vulva (principal); F41.9 Anxiety disorder, unspecified; E11.9 Type 2 diabetes mellitus without complications; I10 Essential (primary) hypertension; F17.200 Nicotine dependence, unspecified, uncomplicated; Z98.890 Other specified postprocedural states; Z86.2 Personal history of diseases of the blood and blood-forming organs and certain disorders involving the immune mechanism; Z86.73 Personal history of transient ischemic attack (TIA), and cerebral infarction without residual deficits; Z88.2 Allergy status to sulfonamides; Z88.8 Allergy status to other drugs, medicaments and biological substances
CPT/HCPCS: 56405; 99284

== ENCOUNTER 2018-01-29 12:46 | Emergency (ER) | payer OTHER ==
[~2018-01-29] VITALS: Ht 162.6 cm; Wt 74.8 kg
[~2018-01-29 12:46] MED LIST changes: +CLIN300C8 PO; -HYDR-2758 PO; +HYDR-2761 PO
[2018-01-29 14:05] LABS: BASO # 0.1 x10^3/uL (0.0-0.2); BASO % 1 % (0-3); EOS # 0.2 x10^3/uL (0.0-0.7); EOS % 4 % (0-3); HEMATOCRIT 30.8 % (36.0-47.0); HEMOGLOBIN 10.3 g/dL (12.0-15.5); LYMPH # 1.5 x10^3/uL (1.0-4.8); LYMPH % 28 % (24-48); MEAN CORPUSCULAR HEMOGLOBIN 29 pg (25-35); MEAN CORPUSCULAR HGB CONC 34 g/dL (31-37); MEAN CORPUSCULAR VOLUME 87 fL (79-100); MONO # 0.5 x10^3/uL (0.0-1.1); MONO % 8 % (0-9); NEUT # 3.3 x10^3uL (1.8-7.7); NEUT % 59 % (31-73); PLATELET COUNT 313 x10^3/uL (140-400); RED BLOOD COUNT 3.53 x10^6/uL (3.50-5.40); RED CELL DISTRIBUTION WIDTH 19.2 % (11.5-14.5); WHITE BLOOD COUNT 5.6 x10^3/uL (4.0-11.0)
--- NOTE | 2018-01-29 14:07 | PHYS DOC ---
Past Medical History Past Medical History: Anemia, Anxiety, CVA, Diabetes-Type II, Hypertension Additional Past Medical Histor: R arm and R knee numbness from CVA, MS, MYASTHENIA GRAVIS Past Surgical History: , Other Additional Past Surgical Histo: heart stents Alcohol Use: Occasionally Drug Use: Marijuana Adult General Chief Complaint Chief Complaint: HYPERGLYCEMIA [facility] HPI Patient is a 42 year old female who presents with hyperglycemia. The patient has no physical complaints. She has nursing staff that checks on her at home. Her blood glucose was checked earlier today and noted to be elevated so she was referred to the emergency department. She denies chest pain or shortness of breath. No recent illness. The patient does not take insulin. She states she has been compliant with her oral anti-hyperglycemic medications. Review of Systems Review of Systems Constitutional: Denies fever or chills Eyes: Denies change in visual acuity, redness, or eye pain HENT: Denies nasal congestion or sore throat Respiratory: Denies cough or shortness of breath Cardiovascular: No additional information not addressed in HPI GI: Denies abdominal pain, nausea, vomiting, bloody stools or diarrhea : Denies dysuria or hematuria Musculoskeletal: Denies back pain or joint pain Integument: Denies rash or skin lesions Neurologic: Denies headache, focal weakness or sensory changes Endocrine: Denies polyuria or polydipsia All other systems were reviewed and found to be within normal limits, except as documented in this note. Current Medications Current Medications Current Medications Medications (Trade) Dose Ordered Sig/Payton Start Time Stop Time Status Last Admin Dose Admin Insulin Human Regular (HumuLIN R VIAL) 5 unit 1X ONCE 01/29/18 14:15 01/29/18 14:16 DC 01/29/18 14:44 5 UNIT Allergies Allergies Allergies Coded Allergies Type Severity Reaction Last Updated Verified Sulfa (Sulfonamide Antibiotics) Allergy Intermediate hives 06/08/15 Yes lisinopril Allergy Intermediate hives 06/08/15 Yes Physical Exam Physical Exam Constitutional: Well developed, well nourished, no acute distress HENT: Normocephalic, atraumatic, bilateral external ears normal Eyes: PERRLA, EOMI, conjunctiva normal Neck: Normal range of motion Cardiovascular:Heart rate regular rhythm, no murmur Lungs & Thorax: Bilateral breath sounds clear to auscultation Abdomen: Bowel sounds normal, soft, no tenderness Skin: Warm, dry, no erythema Back: No tenderness Extremities: No edema Neurologic: Alert and oriented X 3, normal motor function Psychologic: Affect normal Current Patient Data Vital Signs Vital Signs Date Time Temp Pulse Resp B/P (MAP) Pulse Ox O2 Delivery O2 Flow Rate FiO2 01/29/18 13:12 98.5 84 16 147/80 (102) 100 Room Air 98.5 Lab Values Laboratory Tests Test 01/29/18 13:01 01/29/18 13:04 01/29/18 13:08 01/29/18 13:54 Glucose (Fingerstick) 509 mg/dL (70-99) *H Urine Collection Type Unknown Urine Color Yellow Urine Clarity Clear Urine pH 6.0 Urine Specific [place] >=1.030 Urine Protein Negative mg/dL (NEG-TRACE) Urine Glucose (UA) >=1000 mg/dL (NEG) Urine Ketones (Stick) Negative mg/dL (NEG) Urine Blood Trace (NEG) Urine Nitrite Negative (NEG) Urine Bilirubin Negative (NEG) Urine Urobilinogen Dipstick 0.2 mg/dL (0.2 mg/dL) Urine Leukocyte Esterase Negative (NEG) Urine RBC 6-10 /HPF (0-2) Urine WBC 0 /HPF (0-4) Urine Squamous Epithelial Cells Mod /LPF Urine Bacteria 0 /HPF (0-FEW) POC Urine HCG, Qualitative Hcg negative (Negative) White Blood Count 5.6 x10^3/uL (4.0-11.0) Red Blood Count 3.53 x10^6/uL (3.50-5.40) Hemoglobin 10.3 g/dL (12.0-15.5) L Hematocrit 30.8 % (36.0-47.0) L Mean Corpuscular Volume 87 fL (79-100) Mean Corpuscular Hemoglobin 29 pg (25-35) Mean Corpuscular Hemoglobin Concent 34 g/dL (31-37) Red Cell Distribution Width 19.2 % (11.5-14.5) H Platelet Count 313 x10^3/uL (140-400) Neutrophils (%) (Auto) 59 % (31-73) Lymphocytes (%) (Auto) 28 % (24-48) Monocytes (%) (Auto) 8 % (0-9) Eosinophils (%) (Auto) 4 % (0-3) H Basophils (%) (Auto) 1 % (0-3) Neutrophils # (Auto) 3.3 x10^3uL (1.8-7.7) Lymphocytes # (Auto) 1.5 x10^3/uL (1.0-4.8) Monocytes # (Auto) 0.5 x10^3/uL (0.0-1.1) Eosinophils # (Auto) 0.2 x10^3/uL (0.0-0.7) Basophils # (Auto) 0.1 x10^3/uL (0.0-0.2) Test 01/29/18 14:40 01/29/18 15:48 Sodium Level 132 mmol/L (136-145) L Potassium Level 4.0 mmol/L (3.5-5.1) Chloride Level 101 mmol/L (98-107) Carbon Dioxide Level 20 mmol/L (21-32) L Anion Gap 11 (6-14) Blood Urea Nitrogen 7 mg/dL (7-20) Creatinine 1.1 mg/dL (0.6-1.0) H Estimated GFR (Cockcroft-Gault) 65.3 Glucose Level 412 mg/dL (70-99) H Calcium Level 9.2 mg/dL (8.5-10.1) Troponin I Quantitative < 0.017 ng/mL (0.000-0.055) Glucose (Fingerstick) 174 mg/dL (70-99) H Laboratory Tests 01/29/18 13:54 Laboratory Tests 01/29/18 14:40 EKG EKG No STEMI Interpretation Time: 14:05 Radiology/Procedures Radiology/Procedures [] Course & Med Decision Making Course & Med Decision Making Pertinent Labs and Imaging studies reviewed. (See chart for details) Patient was evaluated shortly after arrival to her room. She has no physical complaints. She presented to the ER primarily for concerns of hyperglycemia which was reported to her by nursing staff who checked on her at home today. Basic labs including troponin and also EKG and urinalysis are ordered. We will give some insulin and IV fluids. 16:35: Pulse reviewed. Patient is mildly dehydrated. She does not have an anion gap. No urinary tract infection. EKG was normal. Troponin is not elevated. Suspect cause for her hyperglycemia to be medication noncompliance versus poor diet. No acute infectious etiology or other etiology is found during the ED course the day. She was given a single dose of insulin, 5 units. This did improve her blood sugar dramatically. She was also given IV fluids in the ER. Patient is discharged home. She is advised to eat food on her way home. Resume all of her current medical regimens and follow-up with her primary care doctor. Return to the emergency department if she develops any new or additional symptoms. Dragon Disclaimer Dragon Disclaimer This electronic medical record was generated, in whole or in part, using a voice recognition dictation system. Departure Departure Condition: GOOD Referrals: REJI CORREA MD (PCP) ILIA LYNCH DO Jan 29, 2018 14:07
[2018-01-29] MEDS ORDERED: INSULIN REGULAR 100 UNIT/ML 3ML VIAL. IV ONE (14:15)
[2018-01-29 14:16] LABS: BILIRUBIN,URINE NEGATIVE (NEG); CLARITY,URINE CLEAR; COLOR,URINE YELLOW; NITRITE,URINE NEGATIVE (NEG); PROTEIN,URINE NEGATIVE (NEG-TRACE); UROBILINOGEN,URINE 0.2 mg/dL (0.2 mg/dL)
--- NOTE | 2018-01-29 14:22 | EKG ---
[address] [place] [address] Test Date: 2018-01-29 Test Time: 14:01:52 Pat Name: MARILU MANCIA Department: Room: Gender: F Nutrition Counselor: : 1975 Requested By: ILIA LYNCH Order Number: [id number] Reading MD: Measurements Intervals [place] Rate: 73 P: MD: QRS: 27 QRSD: 80 T: 23 QT: 354 QTc: 393 Interpretive Statements IRREGULAR RHYTHM, NO P-WAVE FOUND OTHERWISE NORMAL ECG RI6.01 No previous ECG available for comparison
[2018-01-29 14:28] LABS: BACTERIA,URINE 0 /HPF (0-FEW); SQUAMOUS EPITHELIAL CELL,UR MOD /LPF; WBC,URINE 0 /HPF (0-4)
[2018-01-29 15:16] LABS: CALCIUM 9.2 mg/dL (8.5-10.1); CREATININE 1.1 mg/dL (0.6-1.0); GFR 65.3
[2018-01-29 15:30] VITALS: BP 116/74
== END 2018-01-29 17:00 | disposition home or self-care (01) ==
LOC: ER 12:46
DX: E11.65 Type 2 diabetes mellitus with hyperglycemia (principal); I10 Essential (primary) hypertension; Z86.73 Personal history of transient ischemic attack (TIA), and cerebral infarction without residual deficits; Z95.5 Presence of coronary angioplasty implant and graft; Z88.2 Allergy status to sulfonamides; Z88.8 Allergy status to other drugs, medicaments and biological substances
CPT/HCPCS: 36415; 80048; 81001; 81025; 82962; 84484; 85025; 93005; 96374; 99284; J1815

== ENCOUNTER 2018-01-30 19:44 | Emergency (ER) | payer OTHER ==
[~2018-01-30] VITALS: Ht 170.2 cm; Wt 75.5 kg
[2018-01-30] MEDS ORDERED: IV NORMAL SALINE 1000ML BAG 1,000 ML IV ONE (20:15)
[2018-01-30 20:47] LABS: BASO # 0.1 x10^3/uL (0.0-0.2); BASO % 1 % (0-3); EOS # 0.2 x10^3/uL (0.0-0.7); EOS % 4 % (0-3); HEMATOCRIT 33.5 % (36.0-47.0); HEMOGLOBIN 10.9 g/dL (12.0-15.5); LYMPH # 1.9 x10^3/uL (1.0-4.8); LYMPH % 31 % (24-48); MEAN CORPUSCULAR HEMOGLOBIN 29 pg (25-35); MEAN CORPUSCULAR HGB CONC 33 g/dL (31-37); MEAN CORPUSCULAR VOLUME 87 fL (79-100); MONO # 0.5 x10^3/uL (0.0-1.1); MONO % 7 % (0-9); NEUT # 3.5 x10^3uL (1.8-7.7); NEUT % 57 % (31-73); PLATELET COUNT 290 x10^3/uL (140-400); RED BLOOD COUNT 3.84 x10^6/uL (3.50-5.40); RED CELL DISTRIBUTION WIDTH 19.4 % (11.5-14.5); WHITE BLOOD COUNT 6.1 x10^3/uL (4.0-11.0)
[2018-01-30 20:49] LABS: CALCIUM 9.2 mg/dL (8.5-10.1); CREATININE 1.2 mg/dL (0.6-1.0); GFR 59.1; POTASSIUM 5.6 mmol/L (3.5-5.1)
[2018-01-30 20:55] LABS: ALBUMIN 3.2 g/dL (3.4-5.0); ALBUMIN/GLOBULIN RATIO 0.7 (1.0-1.7); TOTAL BILIRUBIN 0.4 mg/dL (0.2-1.0); TOTAL PROTEIN 7.9 g/dL (6.4-8.2)
--- NOTE | 2018-01-30 21:27 | PHYS DOC ---
Past Medical History Past Medical History: Anemia, Anxiety, CVA, Diabetes-Type II, Hypertension Additional Past Medical Histor: R arm and R knee numbness from CVA, MS, MYASTHENIA GRAVIS Past Surgical History: , Other Additional Past Surgical Histo: heart stents Alcohol Use: Occasionally Drug Use: Marijuana Adult General Chief Complaint Chief Complaint: HYPERGLYCEMIA [facility] HPI Patient is a 42 year old female who presents with states she was here yesterday for hyperglycemia and they gave her some insulin and sent her home to follow up with Dr. Ott on Friday. She states today she had an 8 anything all day but then a rib somatic and she is and checked her glucose as her home health told her to do and her blood sugar was over 400. Patient states she had last ate at 3 PM. Patient states she's has a history of 5 strokes, MD with stents, diabetes. Patient initially takes metformin for diabetes. She states she smokes 3 cigarettes a day but marijuana every day. She denies chest pain, shortness of air, abdominal pain, dizziness, nausea, vomiting, diarrhea but does state that her bilateral legs feel weaker than usual. Patient does have right-sided weakness from the stroke she's had in the past. She states that she is also itching all over her body and she told the doctor yesterday but they didn't do anything about it. Review of Systems Review of Systems Constitutional: Hyperglycemia. Denies fever or chills [] Eyes: Denies change in visual acuity, redness, or eye pain [] HENT: Denies nasal congestion or sore throat [] Respiratory: Denies cough or shortness of breath [] Cardiovascular: No additional information not addressed in HPI [] GI: Denies abdominal pain, nausea, vomiting, bloody stools or diarrhea [] : Denies dysuria or hematuria [] Musculoskeletal: Bilateral leg weakness. Denies back pain or joint pain [] Integument: Dry skin. Denies rash or skin lesions [] Neurologic: Denies headache, focal weakness or sensory changes [] All other systems were reviewed and found to be within normal limits, except as documented in this note. Current Medications Current Medications Current Medications Medications (Trade) Dose Ordered Sig/Payton Start Time Stop Time Status Last Admin Dose Admin Calcium Gluconate (Calcium Gluconate) 1,000 mg 1X ONCE 01/30/18 21:45 01/30/18 21:46 DC Insulin Human Regular (HumuLIN R VIAL) 3 unit 1X ONCE 01/30/18 21:45 01/30/18 21:46 DC Sodium Chloride 1,000 ml @ 1,000 mls/hr 1X ONCE 01/30/18 20:15 01/30/18 21:14 DC 01/30/18 20:38 1,000 MLS/HR Allergies Allergies Allergies Coded Allergies Type Severity Reaction Last Updated Verified Sulfa (Sulfonamide Antibiotics) Allergy Intermediate hives 06/08/15 Yes lisinopril Allergy Intermediate hives 06/08/15 Yes Physical Exam Physical Exam Constitutional: Well developed, well nourished, no acute distress, non-toxic appearance. [] HENT: Normocephalic, atraumatic, bilateral external ears normal, oropharynx moist, no oral exudates, nose normal. [] Eyes: PERRLA, EOMI, conjunctiva normal, no discharge. [] Neck: Normal range of motion, no tenderness, supple, no stridor. [] Cardiovascular:Heart rate regular rhythm, no murmur [] Lungs & Thorax: Bilateral breath sounds clear to auscultation [] Abdomen: Bowel sounds normal, soft, no tenderness, no masses, no pulsatile masses. [] Skin: Generalized dry skin. Warm, dry, no erythema, no rash. [] Back: No tenderness, no CVA tenderness. [] Extremities: No tenderness, no cyanosis, no clubbing, ROM intact, no edema. [] Neurologic: Alert and oriented X 3, normal motor function, normal sensory function, no focal deficits noted. [] Psychologic: Affect normal, judgement normal, mood normal. [] Current Patient Data Vital Signs Vital Signs Date Time Temp Pulse Resp B/P (MAP) Pulse Ox O2 Delivery O2 Flow Rate FiO2 01/30/18 19:46 98.4 90 18 150/90 (110) 100 Room Air 98.4 Lab Values Laboratory Tests Test 01/30/18 19:56 01/30/18 20:34 Glucose (Fingerstick) 401 mg/dL (70-99) H White Blood Count 6.1 x10^3/uL (4.0-11.0) Red Blood Count 3.84 x10^6/uL (3.50-5.40) Hemoglobin 10.9 g/dL (12.0-15.5) L Hematocrit 33.5 % (36.0-47.0) L Mean Corpuscular Volume 87 fL (79-100) Mean Corpuscular Hemoglobin 29 pg (25-35) Mean Corpuscular Hemoglobin Concent 33 g/dL (31-37) Red Cell Distribution Width 19.4 % (11.5-14.5) H Platelet Count 290 x10^3/uL (140-400) Neutrophils (%) (Auto) 57 % (31-73) Lymphocytes (%) (Auto) 31 % (24-48) Monocytes (%) (Auto) 7 % (0-9) Eosinophils (%) (Auto) 4 % (0-3) H Basophils (%) (Auto) 1 % (0-3) Neutrophils # (Auto) 3.5 x10^3uL (1.8-7.7) Lymphocytes # (Auto) 1.9 x10^3/uL (1.0-4.8) Monocytes # (Auto) 0.5 x10^3/uL (0.0-1.1) Eosinophils # (Auto) 0.2 x10^3/uL (0.0-0.7) Basophils # (Auto) 0.1 x10^3/uL (0.0-0.2) Sodium Level 130 mmol/L (136-145) L Potassium Level 5.6 mmol/L (3.5-5.1) H Chloride Level 100 mmol/L (98-107) Carbon Dioxide Level 18 mmol/L (21-32) L Anion Gap 12 (6-14) Blood Urea Nitrogen 11 mg/dL (7-20) Creatinine 1.2 mg/dL (0.6-1.0) H Estimated GFR (Cockcroft-Gault) 59.1 BUN/Creatinine Ratio 9 (6-20) Glucose Level 397 mg/dL (70-99) H Calcium Level 9.2 mg/dL (8.5-10.1) Total Bilirubin 0.4 mg/dL (0.2-1.0) Aspartate Amino Transferase (AST) 36 U/L (15-37) Alanine Aminotransferase (ALT) 19 U/L (14-59) Alkaline Phosphatase 81 U/L (46-116) Total Protein 7.9 g/dL (6.4-8.2) Albumin 3.2 g/dL (3.4-5.0) L Albumin/Globulin Ratio 0.7 (1.0-1.7) L Laboratory Tests 01/30/18 20:34 Laboratory Tests 01/30/18 20:34 EKG EKG [address] Shukla[] Interpretation Time: Sinus rhythm no STEMI Radiology/Procedures Radiology/Procedures [] Course & Med Decision Making Course & Med Decision Making Patient is a 42 year old female who presents with states she was here yesterday for hyperglycemia and they gave her some insulin and sent her home to follow up with Dr. Ott on Friday. She states today she had an 8 anything all day but then a rib somatic and she is and checked her glucose as her home health told her to do and her blood sugar was over 400. Patient states she had last ate at 3 PM. Patient states she's has a history of 5 strokes, MD with stents, diabetes. Patient initially takes metformin for diabetes. She states she smokes 3 cigarettes a day but marijuana every day. She denies chest pain, shortness of air, abdominal pain, dizziness, nausea, vomiting, diarrhea but does state that her bilateral legs feel weaker than usual. Patient does have right-sided weakness from the stroke she's had in the past. She states that she is also itching all over her body and she told the doctor yesterday but they didn't do anything about it. Alert and oriented. PERRLA. Neurologically intact. She does have some right-sided weakness but she does move all extremities. When I asked her about her itching she states that she itches all over body even in her buttocks and vagina. When I asked her to undress for the ball down she was able to do that and moved her legs and all extremities appropriately. There is no facial droop and she is neurologically intact. When examining the patient's body she has got dry skin all over her body even in her perineal area and buttocks. Patient states that she has not tried any lotions. Does not have any swelling in her extremities. Heart rate regular without murmur. Lungs are clear to auscultation all lobes. Patient's glucose is 397 and potassium is 5.6. Patient is given a saline bolus, 1 amp calcium gluconate, 3 units insulin. A BMP be checked in one hour after the medications are given. Because there was a jump between potassium from yesterday to today we did an i-STAT chemistry and glucose is now 249 potassium is 3.6. She will not be given calcium gluconate or insulin. She will need to follow-up with her doctor as scheduled. Patient is stable and in no distress. Dragon Disclaimer Dragon Disclaimer This electronic medical record was generated, in whole or in part, using a voice recognition dictation system. Departure Departure Impression: Primary Impression: Hyperglycemia Disposition: 01 HOME, SELF-CARE Condition: STABLE Referrals: REJI CORREA MD (PCP) Patient Instructions: Hyperglycemia Additional Instructions: Follow up with your primary care as scheduled. LUISA YOUNGER PHYSICAL THERAPY AIDE Jan 30, 2018 21:27
[2018-01-30] MEDS ORDERED: INSULIN REGULAR 100 UNIT/ML 3ML VIAL. IV ONE (21:45)
[2018-01-30] MEDS ORDERED: CALCIUM GLUCONATE 1,000 MG/10 ML VIAL. IVP ONE (21:45)
[2018-01-30 22:44] VITALS: BP 138/82
--- NOTE | 2018-01-31 10:56 | EKG ---
[facility] [address] [place] [address] Test Date: 2018-01-30 Test Time: 21:41:04 Pat Name: MARILU MANCIA Department: Room: Gender: F Bus Assistant: : 1975 Requested By: LUISA YOUNGER Order Number: [id number] Reading MD: Neftaly Ochoa MD Measurements Intervals [place] Rate: 84 P: 24 CT: 122 QRS: 48 QRSD: 74 T: 28 QT: 344 QTc: 409 Interpretive Statements SINUS RHYTHM Electronically Signed On 02-02-2018 10:15:50 PANTOGRAPH II ENGRAVER by Neftaly Ochoa MD
[2018-01-31 12:10] LABS: CREATININE ISTAT 0.9 mg/dL (0.5-1.4); HEMOGLOBIN ISTAT 11.2 g/dL (12-15); ION CA ISTAT 1.18 mmol/L (1.13-1.32); POTASSIUM ISTAT 3.6 mmol/L (3.5-5.0)
== END 2018-01-30 22:36 | disposition home or self-care (01) ==
LOC: ER 19:44
DX: E11.65 Type 2 diabetes mellitus with hyperglycemia (principal); I10 Essential (primary) hypertension; F41.9 Anxiety disorder, unspecified; Z86.73 Personal history of transient ischemic attack (TIA), and cerebral infarction without residual deficits; Z95.5 Presence of coronary angioplasty implant and graft; Z88.2 Allergy status to sulfonamides; Z88.8 Allergy status to other drugs, medicaments and biological substances
CPT/HCPCS: 36415; 80047; 80053; 82962; 85025; 93005; 96360; 99284; J7030

== ENCOUNTER → 2018-02-24 | Outpatient (CLI) | payer OTHER ==
[2018-01-30 22:44] VITALS: BP 138/82
--- NOTE | 2018-02-24 10:12 | CARD ---
MR#: [id number] Date of Study: 02/24/2018 Ordering Physician: DEISI LEMONS, Referring Physician: DEISI LEMONS Tech: Heather Booth RDCS APPROVED REPORT EXAM: Two-dimensional and M-mode echocardiogram with Doppler and color Doppler. INDICATION CVA/TIA Cardiac Disease: CAD Echo Enhancing Agent Agent/Amount Used: Agitated Saline 16mL RISK FACTORS Hypertension Smoking 2D DIMENSIONS RVDd2.4 (2.9-3.5cm)Left Atrium(2D)3.8 (1.6-4.0cm) IVSd1.0 (0.7-1.1cm)Aortic Root(2D)2.7 (2.0-3.7cm) LVDd4.6 (3.9-5.9cm)LVOT Diameter2.0 (1.8-2.4cm) PWd1.0 (0.7-1.1cm)LVDs3.0 (2.5-4.0cm) FS (%) 33.4 %SV59.2 ml LVEF(%)62.1 (>50%) Aortic Valve AoV Peak Jon.120.6cm/sAoV VTI23.5cm AO Peak GR.5.8mmHgLVOT Peak Jon.94.5cm/s LVOT VTI 20.90cmAO Mean GR.3mmHg VANESSA (VMAX)2.58cr5PCT (VTI)2.76cm2 Mitral Valve MV E Xsmyebxo83.4cm/sMV DECEL [id number] MV A Xgvsanpl03.0cm/sMV UOZ01iz E/A Ratio1.2MVA (PHT)3.76cm2 TDI E/Lateral E'9.4E/Medial E'12.5 Tricuspid Valve TR P. [id number]/sRAP WQIFUOBF1pcFk TR Peak Gr.99pvXoVXOY66pvAx Pulmonary Vein S1 Wfqosdzs80.2cm/sD2 Nocunarb09.8cm/s LEFT VENTRICLE The left ventricle is normal size. There is borderline to mild concentric left ventricular hypertroph y. The left ventricular systolic function is normal and the ejection fraction is within normal range. The Ejection Fraction is 55-60%. There is normal LV segmental wall motion. The left ventricular martinez tolic function and filling is normal for age. RIGHT VENTRICLE The right ventricle is normal size. The right ventricular systolic function is normal. ATRIA The left atrium size is normal. The right atrium size is normal. The interatrial septum is intact wit h no evidence for an atrial septal defect or patent foramen ovale as noted on 2-D or Doppler imaging. Injection of agitated saline contrast documented no interatrial shunt. AORTIC VALVE The aortic valve is normal in structure and function. Doppler and Color Flow revealed no significant aortic regurgitation. There is no significant aortic valvular stenosis. MITRAL VALVE The mitral valve is normal in structure and function. There is no evidence of mitral valve prolapse. There is no mitral valve stenosis. Doppler and Color-flow revealed trace mitral regurgitation. TRICUSPID VALVE The tricuspid valve is normal in structure and function. Doppler and Color Flow revealed trace tricus pid regurgitation. The PA pressure was estimated at 34 mmHg. There is no tricuspid valve stenosis. PULMONIC VALVE The pulmonic valve is not well visualized. Doppler and Color Flow revealed no pulmonic valvular regur gitation. There is no pulmonic valvular stenosis. GREAT VESSELS The aortic root is normal in size. The ascending aorta is normal in size. The IVC is normal in size a nd collapses >50% with inspiration. PERICARDIAL EFFUSION There is no evidence of significant pericardial effusion. Critical Notification Critical Value: No <Conclusion> The left ventricular systolic function is normal and the ejection fraction is within normal range. Th e Ejection Fraction is 55-60%. There is normal LV segmental wall motion. The interatrial septum is intact with no evidence for an atrial septal defect or patent foramen ovale as noted on 2-D or Doppler imaging. Injection of agitated saline contrast documented no interatrial shunt. Signed by : Neftaly Ochoa, Electronically Approved : 02/24/2018 10:11:13
== END | disposition home or self-care (01) ==
LOC: ECHO 09:10
PROVIDERS: ATTEND Internal Medicine Cardiovascular Disease
DX: I63.9 Cerebral infarction, unspecified (principal); I11.9 Hypertensive heart disease without heart failure; F17.200 Nicotine dependence, unspecified, uncomplicated
CPT/HCPCS: 93306

== ENCOUNTER → 2018-02-27 | Outpatient (CLI) | payer OTHER ==
[2018-01-30 22:44] VITALS: BP 138/82
[~2018-02-27] MED LIST changes: +AMLO5TAB10 PO; -AMLO5TAB7 PO; +ATOR10TA60 PO; +FERR325T14 PO; +GLIP5TAB10 PO; +METF500T16 PO; -PANT40TA5 PO; +PANT40TA77 PO; +REGADENOSON 0.4 MG/5 ML DISP.SYRIN. IV ONE; +SITA50TA PO
--- NOTE | 2018-02-27 12:52 | RAD ---
MR#: [id number] Date of Study: 02/27/2018 Ordering Physician: DEISI LEMONS Referring Physician: ILDA ADKINS Tech: DAGO Bradshaw APPROVED REPORT Test Type: Pharmacological Stress Nurse/Tech: Chente Hall RN Test Indications: CAD Cardiac History: stents x 3, smoker, CVA, DM Medications: See Electronic Medical Record Medical History: See Electronic Medical Record Resting ECG: SR Resting Heart Rate: 79 bpm Resting Blood Pressure: 150/87mmHg Pretest Chest Pain: None Nurse/Tech Notes lungs CTA, S1S2 Consent: The procedure was explained to the patient in lay terms. Informed consent was witnessed. Valentin eout was entered into [employer]. History and Stress Test performed by Chente Hall RN Pharm. Details Pharmacologic stress testing was performed using 0.4mg per 5ml of regadenoson given intravenously ove r 7-10 seconds. Stress Symptoms No chest pain or symptoms. POST EXERCISE Reason for Termination: Infusion complete Max HR: 107 bpm Max Blood Pressure: 156/88mmHg Blood Pressure response to exercise: Normal blood pressure response during stress. Heart Rate response to exercise: normal response Chest Pain: No. Arrhythmia: No. ST Change: No. INTERPRETATION Stress EKG Conclusion: No evidence of vasodilator stress induced EKG changes. Imaging Protocol IMAGE PROTOCOL: Rest Tc-99m/stress Tc-99m 1 day Rest: Stress: Viability: Radiopharm.Tc99m [id number] Sestamibi Dose11.8mCi 32mCi Duration 17min. 13min. Img Date 02/27/2018 02/27/2018 Inj-Img [id number]. 60min. Rest Admin Site:IV - Left AntecubitalAdministrator:DAGO Bradshaw Stress Admin Site: IV - Left AntecubitalAdministrator: Dmitri Gregory, RT (R)(N) STRESS DATA End Diast. Vol.80.0mlAv. Heart Rate89.0bpm End Syst. Vol.21.0mlCO Index BSA5.3L/min Myocardial Vmpk336.0gEject. Fngkuhfk38.0% Stress Rates Pk. Fill Rate2.82EDV/secLVtime Pk. Fill 162.82msec Pk. Empty Rate5.09ESV/secLVtime Pk. Tudtx455.34msec /3 Pk. Fill1.67EDV/sec Stress Scores Regional WT0.00Summed WT2.00 Regional WM0.00Summed WM3.00 LV Perfusion There is a mild to moderate in intensity REVERSIBLE anterior/septal and anterolateral perfusion defec t of moderate size, suggestive of impaired perfusion reserve and likely coronary stenosis. Wall Motion Normal wall motion. EF 65% LV Perfusion 1 TCD/TID: Yes LV Perf. Quant 17 Seg. SSS5.00 17 Seg. SRS0.00 17 Seg. SDS5.00 Stress Defect Extent (% LAD)5.60Rest Defect Extent (% LAD)0.00Rev. Defect Extent (% LAD)5.60 Stress Defect Extent (% LCX) 12.50Rest Defect Extent (% LCX)0.00Rev. Defect Extent (% LCX)12.50 Stress Defect Extent (% RCA)0.00Rest Defect Extent (% RCA)0.00Rev. Defect Extent (% RCA)0.00 Stress Defect Extent (% KAROL)9.10Rest Defect Extent (% KAROL)0.00Rev. Defect Extent (% KAROL)9.10 Other Information Quality:Average Risk Assessment: Moderate Risk Conclusion 1. No evidence of stress induced EKG changes. 2. Reversible anterior wall defect as noted above with TID at upper limits suggestive of occlusive di sease. 3. Normal EF at > 65% 4. Moderate risk study Recommendations Consider coronary angiography Signed by : Neftaly Ochoa, Electronically Approved : 02/27/2018 12:51:02
== END | disposition home or self-care (01) ==
LOC: NM 08:26
PROVIDERS: ATTEND Internal Medicine Cardiovascular Disease
DX: Z01.810 Encounter for preprocedural cardiovascular examination (principal); I25.10 Atherosclerotic heart disease of native coronary artery without angina pectoris; E11.9 Type 2 diabetes mellitus without complications; Z87.891 Personal history of nicotine dependence; Z86.73 Personal history of transient ischemic attack (TIA), and cerebral infarction without residual deficits
CPT/HCPCS: 78452; 93017; 96374; A9500; J2785

== ENCOUNTER 2018-09-17 22:35 | Emergency (ER) | payer SELFPAY ==
[~2018-09-17] VITALS: Ht 162.6 cm; Wt 74.8 kg
[~2018-09-17 22:35] MED LIST changes: -ATOR10TA60 PO; -FERR325T14 PO; -GLIP5TAB10 PO; -METF500T16 PO; -REGADENOSON 0.4 MG/5 ML DISP.SYRIN. IV ONE; -SITA50TA PO
--- NOTE | 2018-09-17 22:59 | PHYS DOC ---
Past Medical History Past Medical History: Anemia, Anxiety, CVA, Diabetes-Type II, Hypertension Additional Past Medical Histor: R arm and R knee numbness from CVA, MS, MYASTHENIA GRAVIS (MALENA CID APRN) Past Surgical History: , Other Additional Past Surgical Histo: heart stents (MALENA CID APRN) Alcohol Use: Occasionally Drug Use: Marijuana (MALENA CID APRN) Adult General Chief Complaint Chief Complaint: ABDOMINAL PAIN HPI HPI Patient is a 43 year old female with history of CVA, diabetes type 2, hypertension, anxiety, who presents to the ED today complaining of 10 out of 10 bilateral low abdominal pain radiating to her buttocks into her bilateral lower extremities that she states is chronic but got worse this evening. Patient denies anything specifically exacerbating or relieving the pain. She is thrashing around the bed stating she cannot lay on her back. Denies any loss of bowel bladder function. She states she has history of diabetes type 2 and ran out of her medications. PCP Dr. Ott (MALENA CID APRN) Review of Systems Review of Systems Constitutional: Denies fever or chills [] Eyes: Denies change in visual acuity, redness, or eye pain [] HENT: Denies nasal congestion or sore throat [] Respiratory: Denies cough or shortness of breath [] Cardiovascular: No additional information not addressed in HPI [] GI: Reports pain, denies nausea, vomiting, bloody stools or diarrhea [] : Denies dysuria or hematuria [] Musculoskeletal: Reports bilateral low back pain, denies Integument: Denies rash or skin lesions [] Neurologic: Denies headache, focal weakness or sensory changes [] All other systems were reviewed and found to be within normal limits, except as documented in this note. (MALENA CID APRN) Current Medications Current Medications Current Medications Medications (Trade) Dose Ordered Sig/Payton Start Time Stop Time Status Last Admin Dose Admin Fluconazole (Diflucan) 150 mg 1X ONCE 09/18/18 01:15 09/18/18 01:16 DC 09/18/18 01:10 150 MG Info (CONTRAST GIVEN -- Rx MONITORING) 1 each PRN DAILY PRN 09/17/18 23:45 09/18/18 01:18 DC Insulin Human Regular (HumuLIN R VIAL) 8 unit 1X ONCE 09/18/18 00:15 09/18/18 00:16 DC 09/18/18 00:19 8 UNIT Iohexol (Omnipaque 300 Mg/ml) 75 ml 1X ONCE 09/17/18 23:45 09/17/18 23:46 DC 09/17/18 23:56 75 ML Ketorolac Tromethamine (Toradol 30mg Vial) 30 mg 1X ONCE 09/17/18 23:00 09/17/18 23:01 DC 09/17/18 22:59 30 MG Ondansetron HCl (Zofran) 4 mg 1X ONCE 09/17/18 23:00 09/17/18 23:01 DC 09/17/18 22:59 4 MG Sodium Chloride 1,000 ml @ 1,000 mls/hr 1X ONCE 09/17/18 23:00 09/17/18 23:59 DC 09/17/18 22:59 1,000 MLS/HR (RAMON KENDRICK MD) Allergies Allergies Allergies Coded Allergies Type Severity Reaction Last Updated Verified Sulfa (Sulfonamide Antibiotics) Allergy Intermediate hives 06/08/15 Yes lisinopril Allergy Intermediate hives 06/08/15 Yes (RAMON KENDRICK MD) Physical Exam Physical Exam Constitutional: Well developed, well nourished, no acute distress, non-toxic appearance. [] HENT: Normocephalic, atraumatic, bilateral external ears normal, oropharynx moist, no oral exudates, nose normal. [] Eyes: PERRLA, EOMI, conjunctiva normal, no discharge. [] Neck: Normal range of motion, no tenderness, supple, no stridor. [] Cardiovascular:Heart rate regular rhythm, no murmur [] Lungs & Thorax: Bilateral breath sounds clear to auscultation [] Abdomen: Abdominal exam slightly difficult because patient will only lay on her left side. Bowel sounds normal, soft, no tenderness, no masses, no pulsatile masses. [] Skin: Warm, dry, no erythema, no rash. [] Back: Diffuse paraspinal muscle tenderness bilateral lumbar spine, no midline lumbar spine tenderness, no CVA tenderness. [] Extremities: No tenderness, no cyanosis, no clubbing, ROM intact, no edema. [] Neurologic: Alert and oriented X 3, normal motor function, normal sensory function, no focal deficits noted. [] Psychologic: Flat affect, thrashing around in bed (JOSE ROBERTO,MALENA MECHANICAL PRESS OPERATOR) Current Patient Data Vital Signs Vital Signs Date Time Temp Pulse Resp B/P (MAP) Pulse Ox O2 Delivery O2 Flow Rate FiO2 09/18/18 01:07 88 151/80 (103) 99 09/17/18 22:35 98.7 22 Room Air 98.7 (RAMON KENDRICK MD) Lab Values Laboratory Tests Test 09/17/18 23:00 09/17/18 23:30 White Blood Count 5.2 x10^3/uL (4.0-11.0) Red Blood Count 3.73 x10^6/uL (3.50-5.40) Hemoglobin 11.1 g/dL (12.0-15.5) L Hematocrit 33.4 % (36.0-47.0) L Mean Corpuscular Volume 90 fL (79-100) Mean Corpuscular Hemoglobin 30 pg (25-35) Mean Corpuscular Hemoglobin Concent 33 g/dL (31-37) Red Cell Distribution Width 14.4 % (11.5-14.5) Platelet Count 328 x10^3/uL (140-400) Neutrophils (%) (Auto) 49 % (31-73) Lymphocytes (%) (Auto) 35 % (24-48) Monocytes (%) (Auto) 12 % (0-9) H Eosinophils (%) (Auto) 3 % (0-3) Basophils (%) (Auto) 1 % (0-3) Neutrophils # (Auto) 2.5 x10^3/uL (1.8-7.7) Lymphocytes # (Auto) 1.8 x10^3/uL (1.0-4.8) Monocytes # (Auto) 0.6 x10^3/uL (0.0-1.1) Eosinophils # (Auto) 0.2 x10^3/uL (0.0-0.7) Basophils # (Auto) 0.1 x10^3/uL (0.0-0.2) Sodium Level 136 mmol/L (136-145) Potassium Level 4.5 mmol/L (3.5-5.1) Chloride Level 99 mmol/L (98-107) Carbon Dioxide Level 23 mmol/L (21-32) Anion Gap 14 (6-14) Blood Urea Nitrogen 11 mg/dL (7-20) Creatinine 1.1 mg/dL (0.6-1.0) H Estimated GFR (Cockcroft-Gault) 65.0 BUN/Creatinine Ratio 10 (6-20) Glucose Level 422 mg/dL (70-99) H Calcium Level 9.3 mg/dL (8.5-10.1) Total Bilirubin 0.1 mg/dL (0.2-1.0) L Aspartate Amino Transferase (AST) 18 U/L (15-37) Alanine Aminotransferase (ALT) 21 U/L (14-59) Alkaline Phosphatase 91 U/L (46-116) Total Protein 8.5 g/dL (6.4-8.2) H Albumin 3.7 g/dL (3.4-5.0) Albumin/Globulin Ratio 0.8 (1.0-1.7) L Lipase 461 U/L (73-393) H Ethyl Alcohol Level < 10 mg/dL (0-10) Urine Collection Type Unknown Urine Color Yellow Urine Clarity Clear Urine pH 6.0 Urine Specific [place] >=1.030 Urine Protein Negative mg/dL (NEG-TRACE) Urine Glucose (UA) >=1000 mg/dL (NEG) Urine Ketones (Stick) Negative mg/dL (NEG) Urine Blood Negative (NEG) Urine Nitrite Negative (NEG) Urine Bilirubin Negative (NEG) Urine Urobilinogen Dipstick 0.2 mg/dL (0.2 mg/dL) Urine Leukocyte Esterase Negative (NEG) Urine RBC 0 /HPF (0-2) Urine WBC Occ /HPF (0-4) Urine Squamous Epithelial Cells Mod /LPF Urine Bacteria Few /HPF (0-FEW) Urine Yeast Present /HPF Urine Opiates Screen Neg (NEG) Urine Methadone Screen Neg (NEG) Urine Barbiturates Neg (NEG) Urine Phencyclidine Screen Neg (NEG) Urine Amphetamine/Methamphetamine Neg (NEG) Urine Benzodiazepines Screen Neg (NEG) Urine Cocaine Screen Neg (NEG) Urine Cannabinoids Screen Pos (NEG) Urine Ethyl Alcohol Neg (NEG) Laboratory Tests 09/17/18 23:00 Laboratory Tests 09/17/18 23:00 (RAMON KENDRICK MD) Lab Values Laboratory Tests Test 09/17/18 23:00 09/17/18 23:30 White Blood Count 5.2 x10^3/uL (4.0-11.0) Red Blood Count 3.73 x10^6/uL (3.50-5.40) Hemoglobin 11.1 g/dL (12.0-15.5) L Hematocrit 33.4 % (36.0-47.0) L Mean Corpuscular Volume 90 fL (79-100) Mean Corpuscular Hemoglobin 30 pg (25-35) Mean Corpuscular Hemoglobin Concent 33 g/dL (31-37) Red Cell Distribution Width 14.4 % (11.5-14.5) Platelet Count 328 x10^3/uL (140-400) Neutrophils (%) (Auto) 49 % (31-73) Lymphocytes (%) (Auto) 35 % (24-48) Monocytes (%) (Auto) 12 % (0-9) H Eosinophils (%) (Auto) 3 % (0-3) Basophils (%) (Auto) 1 % (0-3) Neutrophils # (Auto) 2.5 x10^3/uL (1.8-7.7) Lymphocytes # (Auto) 1.8 x10^3/uL (1.0-4.8) Monocytes # (Auto) 0.6 x10^3/uL (0.0-1.1) Eosinophils # (Auto) 0.2 x10^3/uL (0.0-0.7) Basophils # (Auto) 0.1 x10^3/uL (0.0-0.2) Sodium Level 136 mmol/L (136-145) Potassium Level 4.5 mmol/L (3.5-5.1) Chloride Level 99 mmol/L (98-107) Carbon Dioxide Level 23 mmol/L (21-32) Anion Gap 14 (6-14) Blood Urea Nitrogen 11 mg/dL (7-20) Creatinine 1.1 mg/dL (0.6-1.0) H Estimated GFR (Cockcroft-Gault) 65.0 BUN/Creatinine Ratio 10 (6-20) Glucose Level 422 mg/dL (70-99) H Calcium Level 9.3 mg/dL (8.5-10.1) Total Bilirubin 0.1 mg/dL (0.2-1.0) L Aspartate Amino Transferase (AST) 18 U/L (15-37) Alanine Aminotransferase (ALT) 21 U/L (14-59) Alkaline Phosphatase 91 U/L (46-116) Total Protein 8.5 g/dL (6.4-8.2) H Albumin 3.7 g/dL (3.4-5.0) Albumin/Globulin Ratio 0.8 (1.0-1.7) L Lipase 461 U/L (73-393) H Ethyl Alcohol Level < 10 mg/dL (0-10) Urine Collection Type Unknown Urine Color Yellow Urine Clarity Clear Urine pH 6.0 Urine Specific [place] >=1.030 Urine Protein Negative mg/dL (NEG-TRACE) Urine Glucose (UA) >=1000 mg/dL (NEG) Urine Ketones (Stick) Negative mg/dL (NEG) Urine Blood Negative (NEG) Urine Nitrite Negative (NEG) Urine Bilirubin Negative (NEG) Urine Urobilinogen Dipstick 0.2 mg/dL (0.2 mg/dL) Urine Leukocyte Esterase Negative (NEG) Urine RBC 0 /HPF (0-2) Urine WBC Occ /HPF (0-4) Urine Squamous Epithelial Cells Mod /LPF Urine Bacteria Few /HPF (0-FEW) Urine Yeast Present /HPF Urine Opiates Screen Neg (NEG) Urine Methadone Screen Neg (NEG) Urine Barbiturates Neg (NEG) Urine Phencyclidine Screen Neg (NEG) Urine Amphetamine/Methamphetamine Neg (NEG) Urine Benzodiazepines Screen Neg (NEG) Urine Cocaine Screen Neg (NEG) Urine Cannabinoids Screen Pos (NEG) Urine Ethyl Alcohol Neg (NEG) Laboratory Tests 09/17/18 23:00 Laboratory Tests 09/17/18 23:00 (MALENA CID APRN) EKG EKG [] (MALENA CID APRN) Radiology/Procedures Radiology/Procedures []PROCEDURE: CT ABD PELV W/ IV CONTRST ONLY EXAM: CT Abdomen and Pelvis with IV contrast CLINICAL HISTORY: Abdominal pain. COMPARISON: none TECHNIQUE: Helical CT of the abdomen and pelvis was performed following the administration of intravenous contrast. Axial, coronal and sagittal reformatted images were generated. PQRS compliance statement - One or more of the following individualized dose reduction techniques were utilized for this study: 1. Automated exposure control 2. Adjustment of the mA and/or kV according to patient size 3. Use of iterative reconstruction technique FINDINGS: Lower chest: Multiple dependent opacities in lung bases likely atelectasis. Abdomen and Pelvis: No focal liver lesion. Calcified granuloma are seen within the spleen. Gallbladder is contracted. No pericholecystic fluid. Appendix is normal. Adrenal glands are normal. Symmetric nephrograms. No focal renal lesion. No hydronephrosis. Multiple bilateral nonobstructing renal calculi are seen. No definite ureteral or bladder calculi. No hydronephrosis or hydroureter. Uterine fibroids are seen within the uterus. Right adnexal cystic structure/follicle is suspected although limited in evaluation by CT. No abdominal pelvic ascites. No abdominal pelvic lymphadenopathy. Moderate to large by colonic stool content is seen. Vascular calcifications are seen. Bones: Multilevel degenerative changes of spine are seen. IMPRESSION: No evidence for bowel obstruction. Multiple bilateral nonobstructing renal calculi. Electronically signed by: Levon Beckett MD (09/18/2018 12:37 AM) [facility] DICTATED and SIGNED BY: LEVON BECKETT MD DATE: 09/18/18 0037 (MALENA CID APRN) Course & Med Decision Making Course & Med Decision Making Pertinent Labs and Imaging studies reviewed. (See chart for details) This is a 43-year-old female patient presented to the ED today complaining of bilateral lower abdominal pain radiating to her buttocks into her lower extremities. No cauda equina syndrome symptoms. Patient is also requesting a refill of all her medications including her diabetes medications Urine analysis is negative for infection. CBC with no acute findings, CMP with glucose of 422, anion gap is normal, patient was given IV fluids as well as insulin in the ED. Lipase noted at 461, patient denies any left upper quadrant abdominal pain. Denies any history of drinking. CT of the abdomen and pelvic is negative for any acute findings, noted for constipation. Patient will be discharged to home. She states the reason she did not have the medications is because she is getting paid tomorrow and did not have any money to buy the medicines. I wrote her prescriptions for the medicines she is missing. Follow-up with her PCP in the course of this week. (MALENA CID APRN) Course & Med Decision Making Staff Physician Addendum: I was working in the ER during the course of this patient's visit. I was available for consultation as needed, but I was not directly involved in the care of this patient. (RAMON KENDRICK MD) Digna Disclaimer Dragon Disclaimer This electronic medical record was generated, in whole or in part, using a voice recognition dictation system. (MALENA CID APRN) Departure Departure Impression: Primary Impression: Hyperglycemia Additional Impressions: Constipation Back pain Elevated lipase Abdominal pain Disposition: HOME, SELF-CARE Condition: STABLE Referrals: REJI CORREA MD (PCP) follow up this week Patient Instructions: Constipation, Adult, Hyperglycemia Additional Instructions: You were evaluated in the emergency room for multiple complaints including abdominal pain and hyperglycemia. Please ensure you use of medications as ordered. Follow-up with your own doctor in the course of this week. You were also noted to be constipated. Try and take natc-vfc-erjxxik MiraLAX and magnesium citrate. Increase your dietary fiber intake Scripts Carvedilol (COREG ) 12.5 Mg Tablet 12.5 MG PO BIDWMEALS for CARDIAC, #30 TAB 30 Refills Prov: MALENA CID APRN 09/18/18 Glipizide (GLIPIZIDE) 5 Mg Tablet 1 TAB PO BID, #30 TAB 3 Refills Prov: MALENA CID APRN 09/18/18 Sitagliptin Phosphate (JANUVIA) 50 Mg Tablet 1 TAB PO DAILY, #30 TAB 0 Refills Prov: MALENA CID APRN 09/18/18 Metformin Hcl (METFORMIN HCL) 500 Mg Tablet 750 MG PO DAILY for ANTI-DIABETIC, #30 TAB 0 Refills Prov: MALENA CID APRN 09/18/18 Ferrous Sulfate (FERROUS SULFATE) 325 Mg Tablet 1 TAB PO DAILY, #30 TAB 0 Refills Prov: MALENA CID APRN 09/18/18 Aspirin (ASPIRIN) 81 Mg Tab.chew 1 TAB PO DAILY, #30 TAB 0 Refills Prov: MALENA CID APRN 09/18/18 Pantoprazole Sodium (PANTOPRAZOLE SODIUM ) 40 Mg Tablet.dr 40 MG PO DAILYAC for GERD, #30 TAB Prov: MALENA CID APRN 09/18/18 Clopidogrel Bisulfate (CLOPIDOGREL) 75 Mg Tablet 1 TAB PO DAILY, #30 TAB 0 Refills Prov: MALENA CID APRN 09/18/18 Atorvastatin Calcium (ATORVASTATIN CALCIUM) 10 Mg Tablet 1 TAB PO DAILY, #30 TAB 0 Refills Prov: MALENA CID APRN 09/18/18 Problem Qualifiers Additional Impressions: Constipation Constipation type: unspecified constipation type Qualified Codes: K59.00 - Constipation, unspecified Back pain Back pain location: low back pain Chronicity: acute Back pain laterality: bilateral Sciatica presence: without sciatica Qualified Codes: M54.5 - Low back pain Abdominal pain Abdominal location: lower abdomen, unspecified Qualified Codes: R10.30 - Lower abdominal pain, unspecified MALENA CID APRN Sep 17, 2018 22:59 RAMON KENDRICK MD Sep 18, 2018 18:16
[2018-09-17] MEDS ORDERED: ONDANSETRON PF 4 MG/2 ML VIAL. IV ONE (23:00)
[2018-09-17] MEDS ORDERED: KETOROLAC 30 MG/ML VIAL. IV ONE (23:00)
[2018-09-17] MEDS ORDERED: IV NORMAL SALINE 1000ML BAG 1,000 ML IV ONE (23:00)
[2018-09-17 23:16] LABS: BASO # 0.1 x10^3/uL (0.0-0.2); BASO % 1 % (0-3); EOS # 0.2 x10^3/uL (0.0-0.7); EOS % 3 % (0-3); HEMATOCRIT 33.4 % (36.0-47.0); HEMOGLOBIN 11.1 g/dL (12.0-15.5); LYMPH # 1.8 x10^3/uL (1.0-4.8); LYMPH % 35 % (24-48); MEAN CORPUSCULAR HEMOGLOBIN 30 pg (25-35); MEAN CORPUSCULAR HGB CONC 33 g/dL (31-37); MEAN CORPUSCULAR VOLUME 90 fL (79-100); MONO # 0.6 x10^3/uL (0.0-1.1); MONO % 12 % (0-9); NEUT # 2.5 x10^3/uL (1.8-7.7); NEUT % 49 % (31-73); PLATELET COUNT 328 x10^3/uL (140-400); RED BLOOD COUNT 3.73 x10^6/uL (3.50-5.40); RED CELL DISTRIBUTION WIDTH 14.4 % (11.5-14.5); WHITE BLOOD COUNT 5.2 x10^3/uL (4.0-11.0)
[2018-09-17 23:28] LABS: CALCIUM 9.3 mg/dL (8.5-10.1); CREATININE 1.1 mg/dL (0.6-1.0); POTASSIUM 4.5 mmol/L (3.5-5.1)
[2018-09-17 23:34] LABS: ALBUMIN 3.7 g/dL (3.4-5.0); ALBUMIN/GLOBULIN RATIO 0.8 (1.0-1.7); TOTAL BILIRUBIN 0.1 mg/dL (0.2-1.0); TOTAL PROTEIN 8.5 g/dL (6.4-8.2)
[2018-09-17 23:41] LABS: BILIRUBIN,URINE NEGATIVE (NEG); CLARITY,URINE CLEAR; COLOR,URINE YELLOW; NITRITE,URINE NEGATIVE (NEG); PROTEIN,URINE NEGATIVE (NEG-TRACE); UROBILINOGEN,URINE 0.2 mg/dL (0.2 mg/dL)
[2018-09-17] MEDS ORDERED: CONTRAST GIVEN. MC PRN (23:45)
[2018-09-17] MEDS ORDERED: IOHEXOL 300 MG/ML 100ML VIAL. IV ONE (23:45)
[2018-09-17 23:48] LABS: BACTERIA,URINE FEW /HPF (0-FEW); RBC,URINE 0 /HPF (0-2); SQUAMOUS EPITHELIAL CELL,UR MOD /LPF; WBC,URINE OCC /HPF (0-4); YEAST,URINE PRESENT /HPF
[2018-09-18 00:08] LABS: BARBITURATES NEG (NEG); BENZODIAZEPINES NEG (NEG); CANNABINOIDS POS (NEG); COCAINE NEG (NEG); METHADONE NEG (NEG); OPIATES NEG (NEG); PHENCYCLIDINE NEG (NEG)
[2018-09-18 00:09] LABS: AMPHETAMINE/METHAMPHETAMINE NEG (NEG)
[2018-09-18] MEDS ORDERED: INSULIN REGULAR 100 UNIT/ML 3ML VIAL. IV ONE (00:15)
--- NOTE | 2018-09-18 00:40 | RAD ---
EXAM: CT Abdomen and Pelvis with IV contrast CLINICAL HISTORY: Abdominal pain. COMPARISON: none TECHNIQUE: Helical CT of the abdomen and pelvis was performed following the administration of intravenous contrast. Axial, coronal and sagittal reformatted images were generated. PQRS compliance statement - One or more of the following individualized dose reduction techniques were utilized for this study: 1. Automated exposure control 2. Adjustment of the mA and/or kV according to patient size 3. Use of iterative reconstruction technique FINDINGS: Lower chest: Multiple dependent opacities in lung bases likely atelectasis. Abdomen and Pelvis: No focal liver lesion. Calcified granuloma are seen within the spleen. Gallbladder is contracted. No pericholecystic fluid. Appendix is normal. Adrenal glands are normal. Symmetric nephrograms. No focal renal lesion. No hydronephrosis. Multiple bilateral nonobstructing renal calculi are seen. No definite ureteral or bladder calculi. No hydronephrosis or hydroureter. Uterine fibroids are seen within the uterus. Right adnexal cystic structure/follicle is suspected although limited in evaluation by CT. No abdominal pelvic ascites. No abdominal pelvic lymphadenopathy. Moderate to large by colonic stool content is seen. Vascular calcifications are seen. Bones: Multilevel degenerative changes of spine are seen. IMPRESSION: No evidence for bowel obstruction. Multiple bilateral nonobstructing renal calculi. Electronically signed by: Levon Art MD (09/18/2018 12:37 AM) [facility]
[2018-09-18] MEDS ORDERED: METF500T16 PO (01:05)
[2018-09-18] MEDS ORDERED: CLOP75TA PO (01:05)
[2018-09-18] MEDS ORDERED: FERR325T14 PO (01:05)
[2018-09-18] MEDS ORDERED: ASPI-630 PO (01:05)
[2018-09-18] MEDS ORDERED: SITA50TA PO (01:05)
[2018-09-18] MEDS ORDERED: CARV12.5 PO (01:05)
[2018-09-18] MEDS ORDERED: GLIP5TAB10 PO (01:05)
[2018-09-18] MEDS ORDERED: ATOR10TA60 PO (01:05)
[2018-09-18] MEDS ORDERED: PANT40TA77 PO (01:05)
[2018-09-18 01:07] VITALS: BP 151/80
[2018-09-18] MEDS ORDERED: FLUCONAZOLE 100 MG TABLET. PO ONE (01:15)
== END 2018-09-18 01:18 | disposition home or self-care (01) ==
LOC: ER 22:35
DX: K59.00 Constipation, unspecified (principal); E11.65 Type 2 diabetes mellitus with hyperglycemia; G89.29 Other chronic pain; R74.8 Abnormal levels of other serum enzymes; M54.5 Low back pain; I10 Essential (primary) hypertension; Z86.73 Personal history of transient ischemic attack (TIA), and cerebral infarction without residual deficits; Z95.5 Presence of coronary angioplasty implant and graft; Z88.2 Allergy status to sulfonamides; Z88.8 Allergy status to other drugs, medicaments and biological substances
CPT/HCPCS: 36415; 74177; 80053; 80307; 81001; 83690; 85025; 96361; 96374; 96375; 99285; G0480; J1815; J1885; J2405; J7030; Q9967

== ENCOUNTER 2018-12-14 16:01 | Emergency (ER) | payer MEDICAID ==
[~2018-12-14] VITALS: Ht 154.9 cm; Wt 77.1 kg
[~2018-12-14 16:01] MED LIST changes: +AMLO10TA8 PO; +AMOX1TAB61 PO; +ATOR10TA60 PO; +FERR325T14 PO; +GLIP5TAB10 PO; +LISI-334 PO; +METF500T16 PO; +NAPR-683 PO; +SITA50TA PO
[2018-12-14] MEDS ORDERED: IV NORMAL SALINE 1000ML BAG 1,000 ML IV SCH (16:07)
[2018-12-14] MEDS ORDERED: fentaNYL PF VIAL 100 MCG/2 ML VIAL IV ONE (16:15)
[2018-12-14] MEDS ORDERED: INSULIN REGULAR 100 UNIT/ML 3ML VIAL. IV ONE ×2 (16:30→17:45)
[2018-12-14 16:31] LABS: BASO # 0.1 x10^3/uL (0.0-0.2); BASO % 2 % (0-3); EOS # 0.5 x10^3/uL (0.0-0.7); EOS % 7 % (0-3); HEMATOCRIT 37.3 % (36.0-47.0); HEMOGLOBIN 12.3 g/dL (12.0-15.5); LYMPH % 27 % (24-48); MEAN CORPUSCULAR HEMOGLOBIN 29 pg (25-35); MEAN CORPUSCULAR HGB CONC 33 g/dL (31-37); MEAN CORPUSCULAR VOLUME 89 fL (79-100); MONO # 0.6 x10^3/uL (0.0-1.1); MONO % 8 % (0-9); NEUT % 56 % (31-73); PLATELET COUNT 303 x10^3/uL (140-400); RED BLOOD COUNT 4.21 x10^6/uL (3.50-5.40); RED CELL DISTRIBUTION WIDTH 16.8 % (11.5-14.5); WHITE BLOOD COUNT 7.1 x10^3/uL (4.0-11.0)
[2018-12-14 16:40] LABS: CALCIUM 9.7 mg/dL (8.5-10.1); CREATININE 1.3 mg/dL (0.6-1.0); GFR 53.6
[2018-12-14 16:46] LABS: ALBUMIN 3.8 g/dL (3.4-5.0); ALBUMIN/GLOBULIN RATIO 0.8 (1.0-1.7); TOTAL BILIRUBIN 0.2 mg/dL (0.2-1.0); TOTAL PROTEIN 8.8 g/dL (6.4-8.2)
--- NOTE | 2018-12-14 16:59 | PHYS DOC ---
Past Medical History Past Medical History: CAD, CVA, Diabetes-Type II, Hypertension, [place], Stroke, Other Additional Past Medical Histor: 3 CARDIAC STENTS, Past Surgical History: Angioplasty, Other Additional Past Surgical Histo: CARDIAC STENTS X'S 3,HEART CATH, Alcohol Use: None Drug Use: Marijuana Adult General Chief Complaint Chief Complaint: HIP PAIN HPI HPI Patient is a 43 year old female patient with history of diabetes mellitus, CVA and right-sided weakness and slurred speech who presents via EMS with thinning of right hip pain. Patient complaining of sudden onset of right ear pain that started about an over prior to arrival to ER without fall or injury and rated her pain as a severe pain. Patient crying when asking questions and her daughter stated that she usually cries because she cannot talk when she is in pain. Patient had blood sugar of more than 400 reported by EMS. Review of Systems Review of Systems Unable to obtain Current Medications Current Medications Current Medications Medications (Trade) Dose Ordered Sig/Payton Start Time Stop Time Status Last Admin Dose Admin Fentanyl Citrate (Fentanyl 2ml Vial) 50 mcg 1X ONCE 12/14/18 16:15 12/14/18 16:16 DC 12/14/18 17:02 50 MCG Insulin Human Regular (HumuLIN R VIAL) 10 unit 1X ONCE 12/14/18 17:45 12/14/18 17:58 DC Sodium Chloride 1,000 ml @ 1,000 mls/hr Q1H 12/14/18 16:07 12/14/18 17:06 DC 12/14/18 17:00 1,000 MLS/HR Allergies Allergies Allergies Coded Allergies Type Severity Reaction Last Updated Verified Sulfa (Sulfonamide Antibiotics) Allergy Intermediate hives 06/08/15 Yes lisinopril Allergy Intermediate hives 06/08/15 Yes Physical Exam Physical Exam Constitutional: Well nourished, mild distress, non-toxic appearance, anxious and tearful. [] HENT: Normocephalic, atraumatic. Eyes: PERRLA, EOMI, conjunctiva normal, no discharge. [] Neck: Normal range of motion, no tenderness, supple, no stridor. [] Cardiovascular:Heart rate regular rhythm, no murmur [] Lungs & Thorax: Bilateral breath sounds clear to auscultation [] Abdomen: Bowel sounds normal, soft, no tenderness, no masses, no pulsatile masses. [] Skin: Warm, dry, no erythema, no rash. [] Back: No tenderness, no CVA tenderness. [] Extremities: No tenderness, no cyanosis, no clubbing, painful range of motion of right hip without sign of injury , no edema. [] Neurologic: Alert , right upper and lower extremity weakness] Psychologic: Affect anxious Current Patient Data Vital Signs Vital Signs Date Time Temp Pulse Resp B/P (MAP) Pulse Ox O2 Delivery O2 Flow Rate FiO2 12/14/18 17:02 16 97 Room Air 12/14/18 16:19 98.4 99 151/101 (118) 98.4 Lab Values Laboratory Tests Test 12/14/18 16:20 12/14/18 17:06 12/14/18 17:31 White Blood Count 7.1 x10^3/uL (4.0-11.0) Red Blood Count 4.21 x10^6/uL (3.50-5.40) Hemoglobin 12.3 g/dL (12.0-15.5) Hematocrit 37.3 % (36.0-47.0) Mean Corpuscular Volume 89 fL (79-100) Mean Corpuscular Hemoglobin 29 pg (25-35) Mean Corpuscular Hemoglobin Concent 33 g/dL (31-37) Red Cell Distribution Width 16.8 % (11.5-14.5) H Platelet Count 303 x10^3/uL (140-400) Neutrophils (%) (Auto) 56 % (31-73) Lymphocytes (%) (Auto) 27 % (24-48) Monocytes (%) (Auto) 8 % (0-9) Eosinophils (%) (Auto) 7 % (0-3) H Basophils (%) (Auto) 2 % (0-3) Neutrophils # (Auto) 4.0 x10^3/uL (1.8-7.7) Lymphocytes # (Auto) 2.0 x10^3/uL (1.0-4.8) Monocytes # (Auto) 0.6 x10^3/uL (0.0-1.1) Eosinophils # (Auto) 0.5 x10^3/uL (0.0-0.7) Basophils # (Auto) 0.1 x10^3/uL (0.0-0.2) Sodium Level 135 mmol/L (136-145) L Potassium Level 4.0 mmol/L (3.5-5.1) Chloride Level 100 mmol/L (98-107) Carbon Dioxide Level 20 mmol/L (21-32) L Anion Gap 15 (6-14) H Blood Urea Nitrogen 10 mg/dL (7-20) Creatinine 1.3 mg/dL (0.6-1.0) H Estimated GFR (Cockcroft-Gault) 53.6 BUN/Creatinine Ratio 8 (6-20) Glucose Level 445 mg/dL (70-99) H Calcium Level 9.7 mg/dL (8.5-10.1) Total Bilirubin 0.2 mg/dL (0.2-1.0) Aspartate Amino Transferase (AST) 20 U/L (15-37) Alanine Aminotransferase (ALT) 26 U/L (14-59) Alkaline Phosphatase 85 U/L (46-116) Total Protein 8.8 g/dL (6.4-8.2) H Albumin 3.8 g/dL (3.4-5.0) Albumin/Globulin Ratio 0.8 (1.0-1.7) L Glucose (Fingerstick) 365 mg/dL (70-99) H Urine Collection Type Unknown Urine Color [place] Urine Clarity Clear Urine pH 5.5 Urine Specific [place] >=1.030 Urine Protein 30 mg/dL (NEG-TRACE) Urine Glucose (UA) >=1000 mg/dL (NEG) Urine Ketones (Stick) Negative mg/dL (NEG) Urine Blood Large (NEG) Urine Nitrite Negative (NEG) Urine Bilirubin Negative (NEG) Urine Urobilinogen Dipstick 0.2 mg/dL (0.2 mg/dL) Urine Leukocyte Esterase Negative (NEG) Urine RBC Tntc /HPF (0-2) Urine WBC 5-10 /HPF (0-4) Urine Squamous Epithelial Cells Few /LPF Urine Bacteria Few /HPF (0-FEW) Urine Opiates Screen Neg (NEG) Urine Methadone Screen Neg (NEG) Urine Barbiturates Neg (NEG) Urine Phencyclidine Screen Neg (NEG) Urine Amphetamine/Methamphetamine Neg (NEG) Urine Benzodiazepines Screen Neg (NEG) Urine Cocaine Screen Neg (NEG) Urine Cannabinoids Screen Pos (NEG) Urine Ethyl Alcohol Neg (NEG) Laboratory Tests 12/14/18 16:20 Laboratory Tests 12/14/18 16:20 EKG EKG [] Radiology/Procedures Radiology/Procedures [][facility] [address] [place] [address] IMAGING REPORT Signed PATIENT: MARILU MANCIA: [id number] : 1975 LOCATION: ER AGE: 43 SEX: F EXAM STATUS: REG ER ORD. PHYSICIAN: SAMIR CORTEZ MD REASON: pain without injury PROCEDURE: HIP RIGHT 2V WITH PELVIS 2 view study of the right hip and AP view of the pelvis Clinical indications: Right hip pain without injury. FINDINGS: No acute fracture or dislocation or lytic process is seen. Hip joints are symmetric. No diastases of the symphysis pubis or either SI joint is seen. IMPRESSION: No significant osseous abnormality. Electronically signed by: Shefali Pastrana MD (12/14/2018 5:05 PM) [id number] DICTATED and SIGNED BY: SHEFALI PASTRANA MD DATE: 12/14/18 3535 Course & Med Decision Making Course & Med Decision Making Pertinent Labs and Imaging studies reviewed. (See chart for details) discharge: I've spoken with the patient and/or caregivers. I've explained the patient's condition, diagnosis and treatment plan based on information available to me at this time. I've answered the patient's and/or caregivers questions and addressed any concerns. The patient and/or caregivers have a good understanding the patient's diagnosis, condition and treatment plan as can be expected at this point. Vital signs have been stabilized. The patient's condition is stable for discharge from the emergency department. The patient will pursue further outpatient evaluation with her primary care provider or other designated consulting physician as outlined in the discharge instructions. Patient and/or caregivers are agreeable to this plan of care and follow-up instructions have been explained in detail. The patient and/or ca regivers have received these instructions in written format and expressed understanding of these discharge instructions. The patient and her caregivers are aware that if any significant change in condition or worsening of symptoms should prompt him to immediately return to this of the closest emergency department. If an emergent department is not readily available I would encourage him to call 911. Digna Disclaimer Digna Disclaimer This electronic medical record was generated, in whole or in part, using a voice recognition dictation system. Departure Departure Impression: Primary Impression: Right hip pain Additional Impressions: Hyperglycemia Uncontrolled diabetes mellitus Disposition: HOME, SELF-CARE (at 181) Condition: IMPROVED Referrals: REJI CORREA MD (PCP) Patient Instructions: Hip Bursitis, Hyperglycemia Additional Instructions: Apply ice on your right hip Follow-up with your primary care physician in 3-5 days Return to ER if not getting better Continue diabetes medication Scripts Acetaminophen With Codeine (TYLENOL WITH CODEINE #3 TABLET) 1 Each Tablet 1 TAB PO PRN Q6HRS PRN for PAIN, #10 TAB Prov: SAMIR CORTEZ MD 12/14/18 Problem Qualifiers Additional Impressions: Uncontrolled diabetes mellitus Diabetes mellitus type: other specified (including ANGEL) Glycemic state: with hyperglycemia Qualified Codes: E13.65 - Other specified diabetes mellitus with hyperglycemia SAMIR CORTEZ MD Dec 14, 2018 16:59
--- NOTE | 2018-12-14 17:07 | RAD ---
2 view study of the right hip and AP view of the pelvis Clinical indications: Right hip pain without injury. FINDINGS: No acute fracture or dislocation or lytic process is seen. Hip joints are symmetric. No diastases of the symphysis pubis or either SI joint is seen. IMPRESSION: No significant osseous abnormality. Electronically signed by: Nico Pastrana MD (12/14/2018 5:05 PM) [id number]
[2018-12-14 17:37] LABS: BILIRUBIN,URINE NEGATIVE (NEG); CLARITY,URINE CLEAR; NITRITE,URINE NEGATIVE (NEG); PH,URINE 5.5; PROTEIN,URINE 30 mg/dL (NEG-TRACE); UROBILINOGEN,URINE 0.2 mg/dL (0.2 mg/dL)
[2018-12-14 17:43] LABS: AMPHETAMINE/METHAMPHETAMINE NEG (NEG); BARBITURATES NEG (NEG); BENZODIAZEPINES NEG (NEG); CANNABINOIDS POS (NEG); COCAINE NEG (NEG); METHADONE NEG (NEG); OPIATES NEG (NEG); PHENCYCLIDINE NEG (NEG)
[2018-12-14 17:45] LABS: BACTERIA,URINE FEW /HPF (0-FEW); COLOR,URINE PINK; RBC,URINE TNTC /HPF (0-2); SQUAMOUS EPITHELIAL CELL,UR FEW /LPF
[2018-12-14 18:00] VITALS: BP 162/90
[2018-12-14] MEDS ORDERED: ACET-704 PO (18:12)
== END 2018-12-14 18:31 | disposition home or self-care (01) ==
LOC: ER 16:01
DX: E11.65 Type 2 diabetes mellitus with hyperglycemia (principal); M25.551 Pain in right hip; I25.10 Atherosclerotic heart disease of native coronary artery without angina pectoris; I10 Essential (primary) hypertension; I25.2 Old myocardial infarction; Z86.73 Personal history of transient ischemic attack (TIA), and cerebral infarction without residual deficits; Z95.5 Presence of coronary angioplasty implant and graft; Z88.2 Allergy status to sulfonamides; Z88.8 Allergy status to other drugs, medicaments and biological substances
CPT/HCPCS: 36415; 73502; 80053; 80307; 81001; 82962; 85025; 87086; 96361; 96374; 96375; 99285; J1815; J3010; J7030

== ENCOUNTER 2018-12-31 18:39 | Emergency (ER) | payer MEDICAID ==
[~2018-12-31] VITALS: Ht 162.6 cm; Wt 77.1 kg
[~2018-12-31 18:39] MED LIST changes: +ACET-704 PO
--- NOTE | 2018-12-31 19:46 | PHYS DOC ---
Past Medical History Past Medical History: CAD, CVA, Diabetes-Type II, Hypertension, [place], Stroke, Other Additional Past Medical Histor: 3 CARDIAC STENTS, Past Surgical History: Angioplasty, Other Additional Past Surgical Histo: CARDIAC STENTS X'S 3,HEART CATH, Alcohol Use: None Drug Use: Marijuana Adult General Chief Complaint Chief Complaint: LOWER EXTREMITY SWELLING [facility] HPI Patient is a 43-year-old female who presents with complaint of bilateral lower extremity swelling and pain. Patient also complains of cough and shortness of breath. Symptoms have been present for the last several days. They've been getting worse since onset. Patient states that pain is worsened when she is walking. It is difficult to obtain additional history as patient is very emotional and crying. Patient's daughter does indicate that patient's emotional state has been very erratic since her last admission and patient does have history of strokes.[] Review of Systems Review of Systems Constitutional: Denies fever or chills [] Respiratory: Complains of cough and shortness of breath [] Cardiovascular: No additional information not addressed in HPI [] Musculoskeletal: Complains of bilateral lower extremity pain [] Neurologic: Denies headache [] Unable to fully assess review of systems due to patient's emotional lability. Allergies Allergies Allergies Coded Allergies Type Severity Reaction Last Updated Verified Sulfa (Sulfonamide Antibiotics) Allergy Intermediate hives 06/08/15 Yes lisinopril Allergy Intermediate hives 06/08/15 Yes Physical Exam Physical Exam Constitutional: Well developed, well nourished, no acute distress, non-toxic appearance. [] HENT: Normocephalic, atraumatic, bilateral external ears normal, oropharynx moist, no oral exudates, nose normal. [] Eyes: PERRLA, EOMI, conjunctiva normal, no discharge. [] Neck: Normal range of motion, no tenderness, supple. [] Cardiovascular: Regular rate and rhythm[] Lungs & Thorax: Coarse rhonchi are noted bilaterally to auscultation [] Abdomen: Bowel sounds normal, soft, no tenderness. [] Skin: Warm, dry, no erythema, no rash. [] Extremities: No tenderness, no cyanosis, no clubbing, ROM intact, no edema. [] Neurologic: Awake and alert, patient with severe emotional lability and unable to fully assess that she is unable to cooperate with exam. [] Current Patient Data Vital Signs Vital Signs Date Time Temp Pulse Resp B/P (MAP) Pulse Ox O2 Delivery O2 Flow Rate FiO2 12/31/18 19:09 98.4 100 20 159/90 (113) 98 Room Air 98.4 Lab Values Laboratory Tests Test 12/31/18 19:45 12/31/18 20:38 12/31/18 20:40 12/31/18 21:00 White Blood Count 9.7 x10^3/uL (4.0-11.0) Red Blood Count 3.89 x10^6/uL (3.50-5.40) Hemoglobin 11.8 g/dL (12.0-15.5) L Hematocrit 34.9 % (36.0-47.0) L Mean Corpuscular Volume 90 fL (79-100) Mean Corpuscular Hemoglobin 30 pg (25-35) Mean Corpuscular Hemoglobin Concent 34 g/dL (31-37) Red Cell Distribution Width 16.7 % (11.5-14.5) H Platelet Count 286 x10^3/uL (140-400) Neutrophils (%) (Auto) 55 % (31-73) Lymphocytes (%) (Auto) 23 % (24-48) L Monocytes (%) (Auto) 7 % (0-9) Eosinophils (%) (Auto) 14 % (0-3) H Basophils (%) (Auto) 1 % (0-3) Neutrophils # (Auto) 5.3 x10^3/uL (1.8-7.7) Lymphocytes # (Auto) 2.2 x10^3/uL (1.0-4.8) Monocytes # (Auto) 0.6 x10^3/uL (0.0-1.1) Eosinophils # (Auto) 1.4 x10^3/uL (0.0-0.7) H Basophils # (Auto) 0.1 x10^3/uL (0.0-0.2) Segmented Neutrophils % 58 % (35-66) Lymphocytes % 26 % (24-48) Monocytes % 2 % (0-10) Eosinophils % 14 % (0-5) H Platelet Estimate Adequate (ADEQUATE) Urine Collection Type Unknown Urine Color Yellow Urine Clarity Cloudy Urine pH 5.5 Urine Specific [place] 1.025 Urine Protein 100 mg/dL (NEG-TRACE) Urine Glucose (UA) Negative mg/dL (NEG) Urine Ketones (Stick) 15 mg/dL (NEG) Urine Blood Moderate (NEG) Urine Nitrite Negative (NEG) Urine Bilirubin Negative (NEG) Urine Urobilinogen Dipstick 0.2 mg/dL (0.2 mg/dL) Urine Leukocyte Esterase Negative (NEG) Urine RBC 6-10 /HPF (0-2) Urine WBC 1-4 /HPF (0-4) Urine Squamous Epithelial Cells Many /LPF Urine Bacteria 0 /HPF (0-FEW) Urine Mucus Mod /LPF Urine Yeast Present /HPF POC Urine HCG, Qualitative Hcg negative (Negative) Sodium Level 142 mmol/L (136-145) Potassium Level 4.2 mmol/L (3.5-5.1) Chloride Level 108 mmol/L (98-107) H Carbon Dioxide Level 19 mmol/L (21-32) L Anion Gap 15 (6-14) H Blood Urea Nitrogen 16 mg/dL (7-20) Creatinine 1.0 mg/dL (0.6-1.0) Estimated GFR (Cockcroft-Gault) 72.5 BUN/Creatinine Ratio 16 (6-20) Glucose Level 99 mg/dL (70-99) Calcium Level 9.9 mg/dL (8.5-10.1) Total Bilirubin 0.1 mg/dL (0.2-1.0) L Aspartate Amino Transferase (AST) 18 U/L (15-37) Alanine Aminotransferase (ALT) 16 U/L (14-59) Alkaline Phosphatase 71 U/L (46-116) Troponin I Quantitative < 0.017 ng/mL (0.000-0.055) XZ-Gaz-[id number]-Type Natriuretic Peptide 111 pg/mL (0-124) Total Protein 7.7 g/dL (6.4-8.2) Albumin 3.6 g/dL (3.4-5.0) Albumin/Globulin Ratio 0.9 (1.0-1.7) L Laboratory Tests 12/31/18 19:45 Laboratory Tests 12/31/18 21:00 EKG EKG [] Radiology/Procedures Radiology/Procedures [] Course & Med Decision Making Course & Med Decision Making Pertinent Labs and Imaging studies reviewed. (See chart for details) [] Dragon Disclaimer Dragon Disclaimer This electronic medical record was generated, in whole or in part, using a voice recognition dictation system. Departure Departure Impression: Primary Impression: Bronchitis Additional Impression: Lower extremity edema Disposition: 01 HOME, SELF-CARE Condition: STABLE Referrals: REJI CORREA MD (PCP) Patient Instructions: Acute Bronchitis, Peripheral Edema Scripts Furosemide (LASIX) 20 Mg Tablet 1 TAB PO DAILY for 5 Days, #5 TAB 0 Refills Prov: REX GARZA Jr. DO 12/31/18 Azithromycin (ZITHROMAX) 250 Mg Tablet 1 PKG PO UD, #6 TAB Prov: REX GARZA Jr. DO 12/31/18 Problem Qualifiers REX GARZA Jr. DO Dec 31, 2018 19:46
[2018-12-31 19:55] LABS: BASO # 0.1 x10^3/uL (0.0-0.2); BASO % 1 % (0-3); EOS # 1.4 x10^3/uL (0.0-0.7); EOS % 14 % (0-3); HEMATOCRIT 34.9 % (36.0-47.0); HEMOGLOBIN 11.8 g/dL (12.0-15.5); LYMPH # 2.2 x10^3/uL (1.0-4.8); LYMPH % 23 % (24-48); MEAN CORPUSCULAR HEMOGLOBIN 30 pg (25-35); MEAN CORPUSCULAR HGB CONC 34 g/dL (31-37); MEAN CORPUSCULAR VOLUME 90 fL (79-100); MONO # 0.6 x10^3/uL (0.0-1.1); MONO % 7 % (0-9); NEUT # 5.3 x10^3/uL (1.8-7.7); NEUT % 55 % (31-73); PLATELET COUNT 286 x10^3/uL (140-400); RED BLOOD COUNT 3.89 x10^6/uL (3.50-5.40); RED CELL DISTRIBUTION WIDTH 16.7 % (11.5-14.5); WHITE BLOOD COUNT 9.7 x10^3/uL (4.0-11.0)
--- NOTE | 2018-12-31 20:18 | RAD ---
CT HEAD INDICATION: Altered mental status COMPARISON: 08/16/2017 Exposure: One or more of the following individualized dose reduction techniques were utilized for this examination: 1. Automated exposure control 2. Adjustment of the mA and/or kV according to patient size 3. Use of iterative reconstruction technique TECHNIQUE: 5 mm contiguous axial images were obtained from the skull base to the vertex in both bone and soft tissue algorithm. FINDINGS: Mild bilateral periventricular white matter hypodensities likely chronic small vessel ischemic disease. Small hypodensity identified in the left occipital lobe likely old infarct. No evidence of acute intracranial hemorrhage. No extra-axial fluid collections. No mass effect or midline shift. Ventricular size is appropriate. Basal cisterns are patent. No fractures identified.Galarza-white differentiation is preserved.Globes and orbits are within normal limits. Paranasal sinuses and mastoid air cells are clear. IMPRESSION: No acute intracranial findings. Electronically signed by: Hiram Nunn MD (12/31/2018 8:15 PM) [facility]
[2018-12-31 20:35] LABS: % EOS 14 % (0-5); % LYMPHS 26 % (24-48); % MONOS 2 % (0-10); % SEGS 58 % (35-66); PLT ESTIMATE ADEQUATE (ADEQUATE)
[2018-12-31 20:47] LABS: BILIRUBIN,URINE NEGATIVE (NEG); CLARITY,URINE CLOUDY; COLOR,URINE YELLOW; NITRITE,URINE NEGATIVE (NEG); PH,URINE 5.5; PROTEIN,URINE 100 mg/dL (NEG-TRACE); UROBILINOGEN,URINE 0.2 mg/dL (0.2 mg/dL)
[2018-12-31 20:52] LABS: SQUAMOUS EPITHELIAL CELL,UR MANY /LPF
[2018-12-31 20:53] LABS: BACTERIA,URINE 0 /HPF (0-FEW); YEAST,URINE PRESENT /HPF
[2018-12-31 21:38] LABS: CALCIUM 9.9 mg/dL (8.5-10.1); GFR 72.5; POTASSIUM 4.2 mmol/L (3.5-5.1)
[2018-12-31 21:46] LABS: ALBUMIN 3.6 g/dL (3.4-5.0); ALBUMIN/GLOBULIN RATIO 0.9 (1.0-1.7); TOTAL BILIRUBIN 0.1 mg/dL (0.2-1.0); TOTAL PROTEIN 7.7 g/dL (6.4-8.2)
--- NOTE | 2018-12-31 22:06 | RAD ---
Exam: Chest one view INDICATION: Shortness of breath TECHNIQUE: Frontal view of the chest Comparisons: 08/16/2017 FINDINGS: The cardiomediastinal silhouette and pulmonary vessels are within normal limits. The lung and pleural spaces are clear. IMPRESSION: No acute cardiopulmonary process. Electronically signed by: Jodie Dalton MD (12/31/2018 10:03 PM) [facility]
[2018-12-31 22:07] VITALS: BP 152/91
[2018-12-31] MEDS ORDERED: FURO-69 PO (22:11)
[2018-12-31] MEDS ORDERED: AZIT250T PO (22:11)
--- NOTE | 2019-01-01 06:51 | EKG ---
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
== END 2018-12-31 22:21 | disposition home or self-care (01) ==
LOC: ER 18:39
DX: J40 Bronchitis, not specified as acute or chronic (principal); R60.0 Localized edema; I10 Essential (primary) hypertension; R51 Headache; E11.9 Type 2 diabetes mellitus without complications; I25.2 Old myocardial infarction; Z86.73 Personal history of transient ischemic attack (TIA), and cerebral infarction without residual deficits; I25.10 Atherosclerotic heart disease of native coronary artery without angina pectoris; Z95.5 Presence of coronary angioplasty implant and graft; Z88.2 Allergy status to sulfonamides; Z88.8 Allergy status to other drugs, medicaments and biological substances
CPT/HCPCS: 36415; 70450; 71045; 80053; 81001; 81025; 83880; 84484; 85007; 85025; 93005; 99285-25

== ENCOUNTER → 2019-01-11 | Outpatient (CLI) | payer MEDICAID ==
[2018-12-31 22:07] VITALS: BP 152/91
[~2019-01-11] MED LIST changes: +AZIT250T PO; +FURO-69 PO
--- NOTE | 2019-01-12 21:42 | RAD ---
Study: 1. Right and left breast diagnostic mammography 2. Diagnostic left breast ultrasound INDICATION: Follow-up evaluation of a left breast lump. COMPARISON: Correlation is made to the left breast ultrasound from 04/14/2018 and 12/22/2017. Bilateral diagnostic mammography from 12/22/2017. TECHNIQUE: 2-D and 3-D diagnostic mammographic views were obtained of both breasts utilizing digital acquisition and computer aided detection. Subsequently, diagnostic sonography was performed of the left breast in the region of palpable concern. FINDINGS: Diagnostic mammography: Breast Tissue Density B :The breast tissue is composed of mixed fatty and fibroglandular tissue. No newly seen microcalcifications, architectural distortion or mass throughout either breast that is suspicious for malignancy. Redemonstrated left breast skin thickening most pronounced in the area R region that is similar to the comparison. A skin marker in the region of the left areola denotes the palpable abnormality that is further evaluated by sonography. Left breast diagnostic sonography: In the palpable region of concern at the left breast 9:00 location 2 cm from the nipple, a heterogeneously hypoechoic collection containing debris is seen mostly within the subcutaneous tissues which are thickened, edematous and hyperemic. Increased vascularity is seen along the periphery of this collection but no internal vascularity is present. There is some frond-like extension of heterogeneous hypoechogenicity extending towards the deeper tissues of the breast though less pronounced from the most recent ultrasound. This collection measures approximately 1.7 cm antiradial by 2.8 cm radial by 0.8 cm in depth. Previously, this was measured at 6 cm x 4.7 cm and up to 2.6 cm in depth. IMPRESSION: 1. At the 9:00 location of the left breast 2 cm from the nipple, redemonstrated heterogeneous collection with complex internal debris, peripheral vascularity, surrounding soft tissue hyperemia and skin thickening. On the current study this measures approximately 1.7 x 2.8 x 0.8 cm compared to 6 x 4.7 x 2.6 cm on the prior. This has been present on more remote ultrasounds and given the waxing and waning size, is felt most likely related to an infectious or inflammatory process as opposed to malignancy. Note is made that the complexity of the internal contents likely would make it difficult to drain. Given lack of resolution across an extended period of time, breast surgical consultation would likely be beneficial. Though a malignant process is considered unlikely, should surgical resection performed pathologic evaluation would be useful to confirm. 2. No mammographic findings of malignancy within either breast. BI-RADS Category 2: Benign. Recommendations: Surgical follow-up. Routine screening mammography in one year unless otherwise clinically indicated. A mammogram does not have 100% sensitivity and therefore a negative imaging study should not delay further work up of a suspicious abnormality. The patient will receive a letter with the results in the mail. Patient information is entered into the reminder system with a target due date for the next screening mammogram. The patient will receive a reminder. "Our facility is accredited by the [employer] Mammography Program."
== END | disposition home or self-care (01) ==
LOC: MAMMO 12:27
PROVIDERS: ATTEND Surgery
DX: N63.20 Unspecified lump in the left breast, unspecified quadrant (principal)
CPT/HCPCS: 76641; 77066

== ENCOUNTER 2019-01-20 21:28 | Emergency (ER) | payer MEDICAID ==
[~2019-01-20] VITALS: Ht 162.6 cm; Wt 77.1 kg
[2019-01-20 21:30] VITALS: BP 169/99
[2019-01-20] MEDS ORDERED: PERM60CR12 TP (21:46)
--- NOTE | 2019-01-20 21:47 | PHYS DOC ---
Past Medical History Past Medical History: CAD, CHF, CVA, Diabetes-Type II, Hypertension, [place], Stroke, Other Additional Past Medical Histor: 3 CARDIAC STENTS, LEFT BREAST CYST (JASKARAN TEJEDA APRN) Past Surgical History: Angioplasty, Other Additional Past Surgical Histo: CARDIAC STENTS X'S 3,HEART CATH, (JASKARAN TEJEDA APRN) Alcohol Use: None Drug Use: Marijuana (JASKARAN TEJEDA APRN) Attending Signature I have participated in the care of this patient and I have reviewed and agree with all pertinent clinical information above including history, exam, and re commendations. (JACQUELINE RUCKER MD) Adult General Chief Complaint Chief Complaint: ALLERGIC REACTION HPI HPI Patient is a 43 year old female who presents with rash and itching to her left arm that is gone up to her neck. She states that rash has been profusely itching for 2 weeks. She felt there might be an allergic reaction due to that she started a new medicine around this time. (JASKARAN TEJEDA APRN) Review of Systems Review of Systems Constitutional: Denies fever or chills [] Eyes: Denies change in visual acuity, redness, or eye pain [] HENT: Denies nasal congestion or sore throat [] Respiratory: Denies cough or shortness of breath [] Cardiovascular: No additional information not addressed in HPI [] GI: Denies abdominal pain, nausea, vomiting, bloody stools or diarrhea [] : Denies dysuria or hematuria [] Musculoskeletal: Denies back pain or joint pain [] Integument: Reports rash to L arm and neck. Neurologic: Denies headache, focal weakness or sensory changes [] Endocrine: Denies polyuria or polydipsia [] Complete systems were reviewed and found to be within normal limits, except as documented in this note. (JASKARAN TEJEDA APRN) Allergies Allergies Allergies Coded Allergies Type Severity Reaction Last Updated Verified Sulfa (Sulfonamide Antibiotics) Allergy Intermediate hives 06/08/15 Yes lisinopril Allergy Intermediate hives 06/08/15 Yes (JACQUELINE RUCKER MD) Physical Exam Physical Exam Constitutional: Well developed, well nourished, no acute distress, non-toxic appearance. [] HENT: Normocephalic, atraumatic, bilateral external ears normal, oropharynx moist, no oral exudates, nose normal. [] Eyes: PERRLA, EOMI, conjunctiva normal, no discharge. [] Neck: Normal range of motion, no tenderness, supple, no stridor. [] Skin: linear rash that is moving up L arm and neck. Back: No tenderness, no CVA tenderness. [] Extremities: No tenderness, no cyanosis, no clubbing, ROM intact, no edema. [] Neurologic: Alert and oriented X 3, normal motor function, normal sensory function, no focal deficits noted. [] Psychologic: Affect normal, judgement normal, mood normal. [] (JASKARAN TEJEDA APRN) Current Patient Data Vital Signs Vital Signs Date Time Temp Pulse Resp B/P (MAP) Pulse Ox O2 Delivery O2 Flow Rate FiO2 01/20/19 21:30 98.1 84 20 169/99 (122) 97 Room Air 98.1 (JACQUELINE RUCKER MD) EKG EKG [] (JASKARAN TEJEDA APRN) Radiology/Procedures Radiology/Procedures [] (JASKARAN TEJEDA APRN) Course & Med Decision Making Course & Med Decision Making Pertinent Labs and Imaging studies reviewed. (See chart for details) Patient appears to have scabies. Will start on medication. (JASKARAN TEJEDA APRN) Dragon Disclaimer Dragon Disclaimer This electronic medical record was generated, in whole or in part, using a voice recognition dictation system. (JASKARAN TEJEDA APRN) Departure Departure Impression: Primary Impression: Scabies Disposition: 01 HOME, SELF-CARE Condition: STABLE Referrals: REJI CORREA MD (PCP) Patient Instructions: Scabies Additional Instructions: Thank you for visiting [facility]. We appreciate you trusting us with your care. If any additional problems come up don't hesitate to return to visit us. Please follow up with your primary care provider so they can plan additional care if needed and know about the problem that you had. If symptoms worsen come back to the Emergency Department. Any concerning symptoms that start such as chest pain, shortness of air, weakness or numbness on one side of the body, running high fevers or any other concerning symptoms return to the ER. Please apply cream body wide and leave on for 8 hours. After 8 hours please wash off. Reapply in one week Scripts Permethrin (PERMETHRIN) 60 Gm Cream..g. 1 RONNY TP ONCE, #60 GM 1 Refill Prov: JASKARAN TEJEDA APRN 01/20/19 JASKARAN TEJEDA APRN Jan 20, 2019 21:47 JACQUELINE RUCKER MD Jan 21, 2019 03:46
== END 2019-01-20 21:54 | disposition home or self-care (01) ==
LOC: ER 21:28
DX: B86 Scabies (principal); I11.0 Hypertensive heart disease with heart failure; I50.9 Heart failure, unspecified; I25.10 Atherosclerotic heart disease of native coronary artery without angina pectoris; Z86.73 Personal history of transient ischemic attack (TIA), and cerebral infarction without residual deficits; I25.2 Old myocardial infarction; Z95.5 Presence of coronary angioplasty implant and graft
CPT/HCPCS: 99283

== ENCOUNTER 2019-02-02 12:39 | Emergency (ER) | payer MEDICAID ==
[~2019-02-02] VITALS: Ht 154.9 cm; Wt 75.7 kg
[~2019-02-02 12:39] MED LIST changes: +PERM60CR12 TP
[2019-02-02 13:29] VITALS: BP 169/99
[2019-02-02] MEDS ORDERED: PERM60CR11 TP (14:14)
--- NOTE | 2019-02-02 14:15 | PHYS DOC ---
Past Medical History Past Medical History: CAD, CHF, CVA, Diabetes-Type II, Hypertension, [place], Stroke, Other Additional Past Medical Histor: 3 CARDIAC STENTS, LEFT BREAST CYST Past Surgical History: Angioplasty, Other Additional Past Surgical Histo: CARDIAC STENTS X'S 3,HEART CATH, Alcohol Use: None Drug Use: Marijuana Adult General Chief Complaint Chief Complaint: MEDICATION REFILL HPI HPI Patient is a 43 year old AA female who presents to the emergency room with a request for refill of Elimite. Patient states she was diagnosed with scabies recently but ran out of the cream to Treat her condition. She continues to reported increased itching and night and rash to her trunk. She denies any pain at this time. All other ROS is neg unless otherwise noted in HPI. Review of Systems Review of Systems See Above Allergies Allergies Allergies Coded Allergies Type Severity Reaction Last Updated Verified Sulfa (Sulfonamide Antibiotics) Allergy Intermediate hives 06/08/15 Yes lisinopril Allergy Intermediate hives 06/08/15 Yes Physical Exam Physical Exam See Above Constitutional: Well developed, well nourished, no acute distress, non-toxic appearance. [] HENT: Normocephalic, atraumatic, bilateral external ears normal, nose normal. [] Eyes: PERRLA, EOMI, conjunctiva normal, no discharge. [] Neck: Normal range of motion, no stridor. [] Lungs & Thorax: Respirations even and unlabored, no retractions, no respiratory distress Skin: Warm, dry, no erythema, rash consistent with scabies noted to trunk Extremities: No cyanosis, ROM intact, no edema. [] Neurologic: Alert and oriented X 3, no focal deficits noted. [] Psychologic: Affect normal, judgement normal, mood normal. [] Current Patient Data Vital Signs Vital Signs Date Time Temp Pulse Resp B/P (MAP) Pulse Ox O2 Delivery O2 Flow Rate FiO2 02/02/19 13:29 98.6 84 18 169/99 (122) 99 Room Air 98.6 EKG EKG [] Radiology/Procedures Radiology/Procedures [] Course & Med Decision Making Course & Med Decision Making Pertinent Labs and Imaging studies reviewed. (See chart for details) [] Dragon Disclaimer Dragon Disclaimer This electronic medical record was generated, in whole or in part, using a voice recognition dictation system. Departure Departure Impression: Primary Impression: Encounter for medication refill Additional Impression: Scabies Disposition: HOME, SELF-CARE Condition: STABLE Referrals: REJI CORREA MD (PCP) Patient Instructions: Medication Refill, Emergency Department, Scabies Additional Instructions: Fill the prescription(s) and use as directed, may repeat treatment in one week if needed. Wash all bedding and clothing in hot water and bag all stuffed animals and pillows in a sealed plastic bag for 2 weeks. Vaccum furniture and floors. Follow up with your primary care doctor if symptoms persist. Return to the ER if symptoms worsen. Scripts Permethrin (ELIMITE) 60 Gm Cream..g. 1 RONNY TP ONCE, #60 GM 1 Refill massage into skin from head to soles of feet 1x, leave on for 8-14 hours then wash off. May repeat in one week if needed. Prov: FREDRICK TUCKER APRN 02/02/19 Problem Qualifiers FREDRICK TUCKER APRN Feb 02, 2019 14:15
== END 2019-02-02 14:37 | disposition home or self-care (01) ==
LOC: ER 12:39
DX: B86 Scabies (principal); I25.10 Atherosclerotic heart disease of native coronary artery without angina pectoris; I11.0 Hypertensive heart disease with heart failure; I50.9 Heart failure, unspecified; E11.9 Type 2 diabetes mellitus without complications; I25.2 Old myocardial infarction; Z86.73 Personal history of transient ischemic attack (TIA), and cerebral infarction without residual deficits; Z98.61 Coronary angioplasty status; Z88.2 Allergy status to sulfonamides; Z88.8 Allergy status to other drugs, medicaments and biological substances
CPT/HCPCS: 99284

== ENCOUNTER 2019-02-13 06:47 | Emergency (ER) | payer MEDICAID ==
[~2019-02-13] VITALS: Ht 172.7 cm; Wt 75.7 kg
[~2019-02-13 06:47] MED LIST changes: +PERM60CR11 TP
--- NOTE | 2019-02-13 07:10 | PHYS DOC ---
Past Medical History Past Medical History: CAD, CHF, CVA, Diabetes-Type II, Hypertension, [place], Stroke, Other Additional Past Medical Histor: 3 CARDIAC STENTS, LEFT BREAST CYST Past Surgical History: Angioplasty, Other Additional Past Surgical Histo: CARDIAC STENTS X'S 3,HEART CATH, Smoking: Cigarettes, 1 Pack Per Day Alcohol Use: None Drug Use: Marijuana Adult General Chief Complaint Chief Complaint: LOWER EXTREMITY SWELLING HPI HPI Patient is a 43-year-old female with a past medical history of heart failure and heart disease with cardiac stent placement is presenting to the emergency department via EMS with bilateral lower extremity swelling and pain. EMS states that she called early this morning for leg pain, she told them that she has been compliant with her medications, and that she can walk and lives with her daughter. At the time of my interview the patient is inconsolably crying and is unable to answer further questions. Patient was able to state that the only thing that hurts is her feet and she denies chest pain and shortness of breath. Denies trauma. Denies fever/chills. Review of Systems Review of Systems Constitutional: Denies fever or chills Eyes: Denies redness or eye pain HENT: Denies nasal congestion or sore throat Respiratory: Denies cough or shortness of breath Cardiovascular: Denies chest pain or palpitations GI: Denies abdominal pain, nausea, or vomiting : Denies dysuria or hematuria Musculoskeletal: Denies back pain; reports bilateral feet swelling Integument: Denies rash or skin lesions Neurologic: Denies headache, focal weakness or sensory changes Complete systems were reviewed and found to be within normal limits, except as documented in this note. Current Medications Current Medications Current Medications Medications (Trade) Dose Ordered Sig/Payton Start Time Stop Time Status Last Admin Dose Admin Insulin Human Regular (HumuLIN R VIAL) 10 unit 1X ONCE 02/13/19 08:00 02/13/19 08:02 DC 02/13/19 08:08 10 UNIT Ketorolac Tromethamine (Toradol 15mg Vial) 15 mg 1X ONCE 02/13/19 07:30 02/13/19 07:31 DC 02/13/19 07:44 15 MG Magnesium Chloride (Mag Delay) 64 mg 1X ONCE 02/13/19 08:00 02/13/19 08:02 DC 02/13/19 08:21 64 MG Allergies Allergies Allergies Coded Allergies Type Severity Reaction Last Updated Verified Sulfa (Sulfonamide Antibiotics) Allergy Intermediate hives 06/08/15 Yes lisinopril Allergy Intermediate hives 06/08/15 Yes Physical Exam Physical Exam Constitutional: Well developed, well nourished, anxious, non-toxic appearance HENT: Normocephalic, atraumatic, oropharynx moist Eyes: Conjunctiva normal, no discharge Neck: Normal range of motion, no tenderness, supple Cardiovascular: Heart rate normal, regular rhythm Lungs & Thorax: Bilateral breath sounds clear to auscultation, no wheezing Abdomen: Soft, no tenderness Skin: Warm, dry, no erythema, no rash Back: No tenderness, no CVA tenderness Extremities: Tenderness to palpation of the bilateral feet, ROM intact, bilateral lower extremity edema to the ankles, no erythema or warmth, no calf tenderness Neurologic: Alert and oriented X 3, no focal deficits noted Psychologic: Affect anxious, judgement normal Current Patient Data Vital Signs Vital Signs Date Time Temp Pulse Resp B/P (MAP) Pulse Ox O2 Delivery O2 Flow Rate FiO2 02/13/19 08:15 88 16 153/77 (102) 99 Room Air Lab Values Laboratory Tests Test 02/13/19 07:20 White Blood Count 8.0 x10^3/uL (4.0-11.0) Red Blood Count 3.88 x10^6/uL (3.50-5.40) Hemoglobin 11.7 g/dL (12.0-15.5) L Hematocrit 35.2 % (36.0-47.0) L Mean Corpuscular Volume 91 fL (79-100) Mean Corpuscular Hemoglobin 30 pg (25-35) Mean Corpuscular Hemoglobin Concent 33 g/dL (31-37) Red Cell Distribution Width 14.4 % (11.5-14.5) Platelet Count 229 x10^3/uL (140-400) Neutrophils (%) (Auto) 73 % (31-73) Lymphocytes (%) (Auto) 16 % (24-48) L Monocytes (%) (Auto) 7 % (0-9) Eosinophils (%) (Auto) 3 % (0-3) Basophils (%) (Auto) 1 % (0-3) Neutrophils # (Auto) 5.9 x10^3/uL (1.8-7.7) Lymphocytes # (Auto) 1.3 x10^3/uL (1.0-4.8) Monocytes # (Auto) 0.5 x10^3/uL (0.0-1.1) Eosinophils # (Auto) 0.2 x10^3/uL (0.0-0.7) Basophils # (Auto) 0.1 x10^3/uL (0.0-0.2) Sodium Level 135 mmol/L (136-145) L Potassium Level 4.4 mmol/L (3.5-5.1) Chloride Level 103 mmol/L (98-107) Carbon Dioxide Level 22 mmol/L (21-32) Anion Gap 10 (6-14) Blood Urea Nitrogen 13 mg/dL (7-20) Creatinine 0.9 mg/dL (0.6-1.0) Estimated GFR (Cockcroft-Gault) 81.9 BUN/Creatinine Ratio 14 (6-20) Glucose Level 337 mg/dL (70-99) H Calcium Level 9.3 mg/dL (8.5-10.1) Magnesium Level 1.6 mg/dL (1.8-2.4) L Total Bilirubin 0.3 mg/dL (0.2-1.0) Aspartate Amino Transferase (AST) 19 U/L (15-37) Alanine Aminotransferase (ALT) 20 U/L (14-59) Alkaline Phosphatase 85 U/L (46-116) Creatine Kinase 55 U/L (26-192) Creatine Kinase MB (Mass) < 0.5 ng/mL (0.0-3.6) Creatine Kinase MB Relative Index % (0-4) Troponin I Quantitative < 0.017 ng/mL (0.000-0.055) VT-Sfk-A-Type Natriuretic Peptide 150 pg/mL (0-124) H Total Protein 8.1 g/dL (6.4-8.2) Albumin 3.4 g/dL (3.4-5.0) Albumin/Globulin Ratio 0.7 (1.0-1.7) L Laboratory Tests 02/13/19 07:20 Laboratory Tests 02/13/19 07:20 EKG EKG EKG at 0727 heart rate of 87 bpm normal sinus rhythm without ST segment elevation. Radiology/Procedures Radiology/Procedures PROCEDURE: CHEST AP ONLY Exam performed: One view chest. Indication: History of CHF Date of Service: 02/13/2019 7:00 AM Comparison: One view chest from 12/31/2018. Single AP upright portable view chest findings: Cardiomediastinal silhouette is within limits of normal. No acute infiltrates, effusion or pneumothorax is detected. The bony structures are normal. Impression: No acute cardiopulmonary process is detected. Course & Med Decision Making Course & Med Decision Making Pertinent Labs and Imaging studies reviewed. (See chart for details) Patient is 43-year-old female with past medical history of heart failure, heart disease, and cardiac stent placement is presenting to the emergency department with bilateral lower extremity edema. Patient was seen and examined the bedside. Physical exam was significant for tender lower extremity edema to the ankles, no erythema or warmth, no calf tenderness. Labs and imaging ordered. Chest x-ray without acute abnormality. EKG normal sinus rhythm at 87 bpm, no ST segment elevation. Labs significant for glucose of 300s, magnesium of 1.7. BNP negligible All other labs benign. 10 units of regular insulin administered subcutaneous. Oral magnesium ordered. Patient is okay with outpatient follow-up for peripheral edema, return precautions given. Patient stable for discharge with outpatient follow-up with PCP. Discussed findings and plan with patient, who acknowledges understanding and agreement. Dragon Disclaimer Dragon Disclaimer This electronic medical record was generated, in whole or in part, using a voice recognition dictation system. Departure Departure Impression: Primary Impression: Peripheral edema Additional Impressions: Hypomagnesemia Hyperglycemia Disposition: 01 HOME, SELF-CARE Condition: STABLE Referrals: REJI CORREA MD (PCP) Patient Instructions: Hyperglycemia, [id number], Hypomagnesemia, Peripheral Edema Additional Instructions: Please follow-up with PCP regarding the need for water pills (diuretics) in the management of your peripheral edema Problem Qualifiers JASKARAN LARSON DO Feb 13, 2019 07:10
[2019-02-13] MEDS ORDERED: KETOROLAC 15 MG/ML VIAL. IVP ONE (07:30)
[2019-02-13 07:32] LABS: BASO # 0.1 x10^3/uL (0.0-0.2); BASO % 1 % (0-3); EOS # 0.2 x10^3/uL (0.0-0.7); EOS % 3 % (0-3); HEMATOCRIT 35.2 % (36.0-47.0); HEMOGLOBIN 11.7 g/dL (12.0-15.5); LYMPH # 1.3 x10^3/uL (1.0-4.8); LYMPH % 16 % (24-48); MEAN CORPUSCULAR HEMOGLOBIN 30 pg (25-35); MEAN CORPUSCULAR HGB CONC 33 g/dL (31-37); MEAN CORPUSCULAR VOLUME 91 fL (79-100); MONO # 0.5 x10^3/uL (0.0-1.1); MONO % 7 % (0-9); NEUT # 5.9 x10^3/uL (1.8-7.7); NEUT % 73 % (31-73); PLATELET COUNT 229 x10^3/uL (140-400); RED BLOOD COUNT 3.88 x10^6/uL (3.50-5.40); RED CELL DISTRIBUTION WIDTH 14.4 % (11.5-14.5)
--- NOTE | 2019-02-13 07:37 | RAD ---
Exam performed: One view chest. Indication: History of CHF Date of Service: 02/13/2019 7:00 AM Comparison: One view chest from 12/31/2018. Single AP upright portable view chest findings: Cardiomediastinal silhouette is within limits of normal. No acute infiltrates, effusion or pneumothorax is detected. The bony structures are normal. Impression: No acute cardiopulmonary process is detected. Electronically signed by: Ashley Malin MD (02/13/2019 7:34 AM) [id number]
[2019-02-13 07:42] LABS: CALCIUM 9.3 mg/dL (8.5-10.1); CREATININE 0.9 mg/dL (0.6-1.0); GFR 81.9; POTASSIUM 4.4 mmol/L (3.5-5.1)
[2019-02-13 07:47] LABS: ALBUMIN 3.4 g/dL (3.4-5.0); ALBUMIN/GLOBULIN RATIO 0.7 (1.0-1.7); MAGNESIUM 1.6 mg/dL (1.8-2.4); TOTAL BILIRUBIN 0.3 mg/dL (0.2-1.0); TOTAL PROTEIN 8.1 g/dL (6.4-8.2)
[2019-02-13] MEDS ORDERED: INSULIN REGULAR 100 UNIT/ML 3ML VIAL. SQ ONE (08:00)
[2019-02-13] MEDS ORDERED: MAGNESIUM CHLORIDE ER 64 MG TABLET.ER PO ONE (08:00)
[2019-02-13 08:07] LABS: CREATINE KINASE 55 U/L (26-192)
[2019-02-13 08:15] VITALS: BP 153/77
--- NOTE | 2019-02-14 12:51 | EKG ---
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
[2019-02-15] MEDS ORDERED: METF-638 PO (17:51)
[2019-02-15] MEDS ORDERED: TRAM50TA PO (17:51)
== END 2019-02-13 08:28 | disposition home or self-care (01) ==
LOC: ER 06:47
DX: R60.0 Localized edema (principal); E83.42 Hypomagnesemia; E11.65 Type 2 diabetes mellitus with hyperglycemia; I11.0 Hypertensive heart disease with heart failure; I50.9 Heart failure, unspecified; I25.10 Atherosclerotic heart disease of native coronary artery without angina pectoris; I25.2 Old myocardial infarction; Z86.73 Personal history of transient ischemic attack (TIA), and cerebral infarction without residual deficits; F17.210 Nicotine dependence, cigarettes, uncomplicated; Z95.5 Presence of coronary angioplasty implant and graft; Z88.2 Allergy status to sulfonamides; Z88.8 Allergy status to other drugs, medicaments and biological substances
CPT/HCPCS: 36415; 71045; 80053; 82553; 83735; 83880; 84484; 85025; 93005; 96372; 96374; 99285; J1815; J1885

== ENCOUNTER 2019-02-28 09:29 | Emergency (ER) | payer MEDICAID ==
[~2019-02-28] VITALS: Ht 154.9 cm; Wt 72.6 kg
[~2019-02-28 09:29] MED LIST changes: +INSU100I11 SQ; +METF-638 PO
--- NOTE | 2019-02-28 10:00 | PHYS DOC ---
Past Medical History Past Medical History: CAD, CHF, CVA, Diabetes-Type II, Hypertension, [place], Stroke, Other Additional Past Medical Histor: 3 CARDIAC STENTS, LEFT BREAST CYST (FREDRICK TUCKER APRN) Past Surgical History: Angioplasty, Other Additional Past Surgical Histo: CARDIAC STENTS X'S 3,HEART CATH, (FREDRICK TUCKER APRN) Alcohol Use: None Drug Use: Marijuana (FREDRICK TUCKER APRN) Adult General Chief Complaint Chief Complaint: RECTAL BLEED HPI HPI Patient is a 43 year old AA female who presents to the ER via EMS with reports of rectal bleeding since yesterday. On arrival pt also complains of left breast pain and bilateral foot swelling. Pt is non-ambulatory at home. Pt has hx of chronic left breast cyst. HPI is limited due to communication barrier, pt has hx of MS, and CVA. Pt currently rates her pain a 10/10 on the pain scale. She denies any injury. (FREDRICK TUCKER APRN) Review of Systems Review of Systems Constitutional: Denies fever Respiratory: Denies cough or shortness of breath [] Breast: See HPI Cardiovascular: No additional information not addressed in HPI [] GI: Denies abdominal pain, nausea, vomiting, or diarrhea; see HPI : Denies dysuria or hematuria [] Musculoskeletal: Denies back pain or joint pain [] Integument: Denies rash or skin lesions [] Neurologic: Denies headache Limited HPI due to communication barrier (FREDRICK TUCKER APRN) Allergies Allergies Allergies Coded Allergies Type Severity Reaction Last Updated Verified Sulfa (Sulfonamide Antibiotics) Allergy Intermediate hives 06/08/15 Yes lisinopril Allergy Intermediate hives 06/08/15 Yes (JASKARAN LARSON DO) Physical Exam Physical Exam Constitutional: Well developed, well nourished, no acute distress, non-toxic appearance. [] HENT: Normocephalic, atraumatic, bilateral external ears normal, nose normal. [] Eyes: PERRLA, EOMI, conjunctiva normal, no discharge. [] Neck: Normal range of motion, no stridor. [] Cardiovascular:Heart rate regular rhythm, no murmur [] Lungs & Thorax: Bilateral breath sounds clear to auscultation, Breast: firm, red, tender, warm mass noted at 9 o'clock medial to left nipple; no nipple drainage; no visible abscess Abdomen: Bowel sounds normal, soft, no tenderness, no masses, no pulsatile masses. [] Pelvic Exam: Kennel Supervisor present Alexus RN Abdomen: Nontender, soft External Genitalia: Normal Skin, vaginal bleeding noted Skin: Warm, dry, Extremities: No tenderness, no cyanosis, no erythema, no deformity, no clubbing, ROM intact, 1+ edema bilateral LE Neurologic: Alert and oriented X 3, no focal deficits noted. [] Psychologic: Affect normal, judgement normal, mood normal. [] (FREDRICK TUCKER APRN) Current Patient Data Vital Signs Vital Signs Date Time Temp Pulse Resp B/P (MAP) Pulse Ox O2 Delivery O2 Flow Rate FiO2 02/28/19 12:30 16 156/85 (108) 98 02/28/19 11:30 76 Room Air 02/28/19 09:30 98.2 98.2 (LARSONJASKARAN CORREA DO) Lab Values Laboratory Tests Test 02/28/19 09:47 02/28/19 10:26 Urine Collection Type U cath Urine Color Yellow Urine Clarity Clear Urine pH 5.5 Urine Specific [place] >=1.030 Urine Protein 100 mg/dL (NEG-TRACE) Urine Glucose (UA) >=1000 mg/dL (NEG) Urine Ketones (Stick) 15 mg/dL (NEG) Urine Blood Negative (NEG) Urine Nitrite Negative (NEG) Urine Bilirubin Negative (NEG) Urine Urobilinogen Dipstick 1.0 mg/dL (0.2 mg/dL) Urine Leukocyte Esterase Negative (NEG) Urine RBC 0 /HPF (0-2) Urine WBC 0 /HPF (0-4) Urine Squamous Epithelial Cells Occ /LPF Urine Bacteria Few /HPF (0-FEW) Urine Hyaline Casts Few /HPF Urine Mucus Mod /LPF Urine Test Negative (NEG) White Blood Count 6.9 x10^3/uL (4.0-11.0) Red Blood Count 3.39 x10^6/uL (3.50-5.40) L Hemoglobin 10.4 g/dL (12.0-15.5) L Hematocrit 30.9 % (36.0-47.0) L Mean Corpuscular Volume 91 fL (79-100) Mean Corpuscular Hemoglobin 31 pg (25-35) Mean Corpuscular Hemoglobin Concent 34 g/dL (31-37) Red Cell Distribution Width 14.9 % (11.5-14.5) H Platelet Count 291 x10^3/uL (140-400) Neutrophils (%) (Auto) 63 % (31-73) Lymphocytes (%) (Auto) 25 % (24-48) Monocytes (%) (Auto) 7 % (0-9) Eosinophils (%) (Auto) 3 % (0-3) Basophils (%) (Auto) 1 % (0-3) Neutrophils # (Auto) 4.3 x10^3/uL (1.8-7.7) Lymphocytes # (Auto) 1.7 x10^3/uL (1.0-4.8) Monocytes # (Auto) 0.5 x10^3/uL (0.0-1.1) Eosinophils # (Auto) 0.2 x10^3/uL (0.0-0.7) Basophils # (Auto) 0.1 x10^3/uL (0.0-0.2) Sodium Level 138 mmol/L (136-145) Potassium Level 4.7 mmol/L (3.5-5.1) Chloride Level 105 mmol/L (98-107) Carbon Dioxide Level 24 mmol/L (21-32) Anion Gap 9 (6-14) Blood Urea Nitrogen 8 mg/dL (7-20) Creatinine 0.8 mg/dL (0.6-1.0) Estimated GFR (Cockcroft-Gault) 93.9 BUN/Creatinine Ratio 10 (6-20) Glucose Level 227 mg/dL (70-99) H Calcium Level 9.4 mg/dL (8.5-10.1) Total Bilirubin 0.3 mg/dL (0.2-1.0) Aspartate Amino Transferase (AST) 15 U/L (15-37) Alanine Aminotransferase (ALT) 12 U/L (14-59) L Alkaline Phosphatase 84 U/L (46-116) JU-Qbp-O-Type Natriuretic Peptide 118 pg/mL (0-124) Total Protein 7.0 g/dL (6.4-8.2) Albumin 3.2 g/dL (3.4-5.0) L Albumin/Globulin Ratio 0.8 (1.0-1.7) L Laboratory Tests 02/28/19 10:26 Laboratory Tests 02/28/19 10:26 (JASKARAN LARSON DO) Lab Values Laboratory Tests Test 02/28/19 09:47 02/28/19 10:26 Urine Collection Type U cath Urine Color Yellow Urine Clarity Clear Urine pH 5.5 Urine Specific [place] >=1.030 Urine Protein 100 mg/dL (NEG-TRACE) Urine Glucose (UA) >=1000 mg/dL (NEG) Urine Ketones (Stick) 15 mg/dL (NEG) Urine Blood Negative (NEG) Urine Nitrite Negative (NEG) Urine Bilirubin Negative (NEG) Urine Urobilinogen Dipstick 1.0 mg/dL (0.2 mg/dL) Urine Leukocyte Esterase Negative (NEG) Urine RBC 0 /HPF (0-2) Urine WBC 0 /HPF (0-4) Urine Squamous Epithelial Cells Occ /LPF Urine Bacteria Few /HPF (0-FEW) Urine Hyaline Casts Few /HPF Urine Mucus Mod /LPF Urine Test Negative (NEG) White Blood Count 6.9 x10^3/uL (4.0-11.0) Red Blood Count 3.39 x10^6/uL (3.50-5.40) L Hemoglobin 10.4 g/dL (12.0-15.5) L Hematocrit 30.9 % (36.0-47.0) L Mean Corpuscular Volume 91 fL (79-100) Mean Corpuscular Hemoglobin 31 pg (25-35) Mean Corpuscular Hemoglobin Concent 34 g/dL (31-37) Red Cell Distribution Width 14.9 % (11.5-14.5) H Platelet Count 291 x10^3/uL (140-400) Neutrophils (%) (Auto) 63 % (31-73) Lymphocytes (%) (Auto) 25 % (24-48) Monocytes (%) (Auto) 7 % (0-9) Eosinophils (%) (Auto) 3 % (0-3) Basophils (%) (Auto) 1 % (0-3) Neutrophils # (Auto) 4.3 x10^3/uL (1.8-7.7) Lymphocytes # (Auto) 1.7 x10^3/uL (1.0-4.8) Monocytes # (Auto) 0.5 x10^3/uL (0.0-1.1) Eosinophils # (Auto) 0.2 x10^3/uL (0.0-0.7) Basophils # (Auto) 0.1 x10^3/uL (0.0-0.2) Sodium Level 138 mmol/L (136-145) Potassium Level 4.7 mmol/L (3.5-5.1) Chloride Level 105 mmol/L (98-107) Carbon Dioxide Level 24 mmol/L (21-32) Anion Gap 9 (6-14) Blood Urea Nitrogen 8 mg/dL (7-20) Creatinine 0.8 mg/dL (0.6-1.0) Estimated GFR (Cockcroft-Gault) 93.9 BUN/Creatinine Ratio 10 (6-20) Glucose Level 227 mg/dL (70-99) H Calcium Level 9.4 mg/dL (8.5-10.1) Total Bilirubin 0.3 mg/dL (0.2-1.0) Aspartate Amino Transferase (AST) 15 U/L (15-37) Alanine Aminotransferase (ALT) 12 U/L (14-59) L Alkaline Phosphatase 84 U/L (46-116) GF-Ldn-G-Type Natriuretic Peptide 118 pg/mL (0-124) Total Protein 7.0 g/dL (6.4-8.2) Albumin 3.2 g/dL (3.4-5.0) L Albumin/Globulin Ratio 0.8 (1.0-1.7) L Laboratory Tests 02/28/19 10:26 Laboratory Tests 02/28/19 10:26 (FREDRICK TUCKER APRN) EKG EKG [] (FREDRCIK TUCKER APRN) Radiology/Procedures Radiology/Procedures PROCEDURE: BREAST LEFT BREAST LEFT 02/28/2019 9:48 AM INDICATION: Red, forearm and tender area along the 9:00 position medial to the nipple COMPARISON: None available. TECHNIQUE: Breast ultrasound 01/11/2019 FINDINGS/ IMPRESSION: 1. There is a hypoechoic mass with circumscribed margins, parallel orientation and minimal posterior acoustic enhancement. There is peripheral vascularity. This finding is identified at the 9:00 position in the left breast, partly retroareolar. This finding previously measured 2.8 x 0.8 x 1.7 cm on prior ultrasound examination. Differential considerations include a liquefied hematoma versus abscess versus inflammatory mass. No definite pathologically enlarged lymph nodes are identified in the left axilla bilaterally Limited ultrasound evaluation. Recommend diagnostic mammogram with tissue sampling. BI-RADS 4: Suspicious. Recommendations: Diagnostic mammogram and tissue sampling is recommended. [] (FREDRICK TUCKER APRN) Course & Med Decision Making Course & Med Decision Making Pertinent Labs and Imaging studies reviewed. (See chart for details) 1040- Spoke with Dr. Olivares about changes in L breast lump per radiologist. Will have patient call his office in the morning to schedule a follow up appointment on Friday this week. Pt verbalized an understanding of home care, medications, follow-up, and return to ED instructions and was in agreement with the plan of care. [] (FREDRICK TUCKER APRN) Dragon Disclaimer Dragon Disclaimer This electronic medical record was generated, in whole or in part, using a voice recognition dictation system. (FREDRICK TUCKER APRN) Departure Departure Impression: Primary Impression: Pain of left breast Additional Impressions: Left breast mass Swelling of both lower extremities Vaginal bleeding Disposition: HOME, SELF-CARE Condition: STABLE Referrals: REJI CORREA MD (PCP) Patient Instructions: Abnormal Uterine Bleeding, Breast Sonogram, Breast Tenderness, Peripheral Edema Additional Instructions: Follow up with your primary care doctor this week for reevaluation of vaginal b leeding and foot swelling. Call Dr. Olivares's office tomorrow morning to schedule an appointment for Friday. The mass in your left breast has increased in size and needs further evaluation. Attending Signature Attending Signature I have reviewed the PA/LINE FISHER's note and plan of care. I was available for consultation as needed during the patient's visit in the emergency department. I agree with the clinical impression, plan, and disposition. (JASKARAN LARSON DO) Problem Qualifiers FREDRICK TUCKER APRN Feb 28, 2019 10:00 JASKARAN LARSON DO Mar 01, 2019 11:06
[2019-02-28 10:15] LABS: BILIRUBIN,URINE NEGATIVE (NEG); CLARITY,URINE CLEAR; COLOR,URINE YELLOW; NITRITE,URINE NEGATIVE (NEG); PH,URINE 5.5; PROTEIN,URINE 100 mg/dL (NEG-TRACE)
[2019-02-28 10:18] LABS: BACTERIA,URINE FEW /HPF (0-FEW); RBC,URINE 0 /HPF (0-2); SQUAMOUS EPITHELIAL CELL,UR OCC /LPF; WBC,URINE 0 /HPF (0-4)
[2019-02-28 10:19] LABS: HYALINE CASTS, URINE FEW /HPF
[2019-02-28 10:23] LABS: U PREG PATIENT NEGATIVE (NEG)
--- NOTE | 2019-02-28 10:32 | RAD ---
BREAST LEFT 02/28/2019 9:48 AM INDICATION: Red, forearm and tender area along the 9:00 position medial to the nipple COMPARISON: None available. TECHNIQUE: Breast ultrasound 01/11/2019 FINDINGS/ IMPRESSION: 1. There is a hypoechoic mass with circumscribed margins, parallel orientation and minimal posterior acoustic enhancement. There is peripheral vascularity. This finding is identified at the 9:00 position in the left breast, partly retroareolar. This finding previously measured 2.8 x 0.8 x 1.7 cm on prior ultrasound examination. Differential considerations include a liquefied hematoma versus abscess versus inflammatory mass. No definite pathologically enlarged lymph nodes are identified in the left axilla bilaterally Limited ultrasound evaluation. Recommend diagnostic mammogram with tissue sampling. BI-RADS 4: Suspicious. Recommendations: Diagnostic mammogram and tissue sampling is recommended. FOR INTERNAL CODING PURPOSES Critical result: Findings discussed with FREDRICK TUCKER at 02/28/2019 10:25 AM. RESULT CODE: (C) Electronically signed by: Patricia Mortensen MD (02/28/2019 10:30 AM) [id number]
[2019-02-28 10:41] LABS: BASO # 0.1 x10^3/uL (0.0-0.2); BASO % 1 % (0-3); EOS # 0.2 x10^3/uL (0.0-0.7); EOS % 3 % (0-3); HEMATOCRIT 30.9 % (36.0-47.0); HEMOGLOBIN 10.4 g/dL (12.0-15.5); LYMPH # 1.7 x10^3/uL (1.0-4.8); LYMPH % 25 % (24-48); MEAN CORPUSCULAR HEMOGLOBIN 31 pg (25-35); MEAN CORPUSCULAR HGB CONC 34 g/dL (31-37); MEAN CORPUSCULAR VOLUME 91 fL (79-100); MONO # 0.5 x10^3/uL (0.0-1.1); MONO % 7 % (0-9); NEUT # 4.3 x10^3/uL (1.8-7.7); NEUT % 63 % (31-73); PLATELET COUNT 291 x10^3/uL (140-400); RED BLOOD COUNT 3.39 x10^6/uL (3.50-5.40); RED CELL DISTRIBUTION WIDTH 14.9 % (11.5-14.5); WHITE BLOOD COUNT 6.9 x10^3/uL (4.0-11.0)
[2019-02-28 10:45] LABS: CALCIUM 9.4 mg/dL (8.5-10.1); CREATININE 0.8 mg/dL (0.6-1.0); GFR 93.9
[2019-02-28 10:51] LABS: ALBUMIN 3.2 g/dL (3.4-5.0); ALBUMIN/GLOBULIN RATIO 0.8 (1.0-1.7); TOTAL BILIRUBIN 0.3 mg/dL (0.2-1.0)
[2019-02-28 10:52] LABS: POTASSIUM 4.7 mmol/L (3.5-5.1)
[2019-02-28 12:30] VITALS: BP 156/85
== END 2019-02-28 13:00 | disposition home or self-care (01) ==
LOC: ER 09:29
DX: N64.4 Mastodynia (principal); R22.43 Localized swelling, mass and lump, lower limb, bilateral; N63.20 Unspecified lump in the left breast, unspecified quadrant; N93.9 Abnormal uterine and vaginal bleeding, unspecified; E11.9 Type 2 diabetes mellitus without complications; I11.0 Hypertensive heart disease with heart failure; I50.9 Heart failure, unspecified; I25.10 Atherosclerotic heart disease of native coronary artery without angina pectoris; Z86.73 Personal history of transient ischemic attack (TIA), and cerebral infarction without residual deficits; I25.2 Old myocardial infarction; Z95.5 Presence of coronary angioplasty implant and graft; Z88.2 Allergy status to sulfonamides; Z88.8 Allergy status to other drugs, medicaments and biological substances
CPT/HCPCS: 36415; 76641; 80053; 81001; 81025; 83880; 85025; 99285-25

== ENCOUNTER 2019-03-31 17:32 | Emergency (ER) | payer MEDICAID ==
[~2019-03-31] VITALS: Ht 162.6 cm; Wt 79.5 kg
--- NOTE | 2019-03-31 19:59 | PHYS DOC ---
Past Medical History Past Medical History: CAD, CHF, CVA, Diabetes-Type II, Hypertension, [place], Stroke, Other Additional Past Medical Histor: 3 CARDIAC STENTS, LEFT BREAST CYST Past Surgical History: Angioplasty, Other Additional Past Surgical Histo: CARDIAC STENTS X'S 3,HEART CATH, Smoking Status: Current Every Day Smoker Alcohol Use: None Drug Use: Marijuana Adult General Chief Complaint Chief Complaint: CHEST WALL PAIN HPI HPI Patient is a 43 year old female past medical history coronary artery disease CVA hypertension hyperlipidemia diabetes presents with a chief complaint of chest discomfort. Patient states pain is been ongoing since last night. Patient states pain is been constant she's radiates and describes it as sharp. Pain does not radiate. Patient states she has some shortness of breath but denies any nausea vomiting. Review of Systems Review of Systems Constitutional: Denies fever or chills [] Eyes: Denies change in visual acuity, redness, or eye pain [] HENT: Denies nasal congestion or sore throat [] Respiratory: Denies cough or shortness of breath [] Cardiovascular: No additional information not addressed in HPI [] GI: Denies abdominal pain, nausea, vomiting, bloody stools or diarrhea [] : Denies dysuria or hematuria [] Musculoskeletal: Denies back pain or joint pain [] Integument: Denies rash or skin lesions [] Neurologic: Denies headache, focal weakness or sensory changes [] Endocrine: Denies polyuria or polydipsia [] All other systems were reviewed and found to be within normal limits, except as documented in this note. Current Medications Current Medications Current Medications Medications (Trade) Dose Ordered Sig/[facility] Start Time Stop Time Status Last Admin Dose Admin Aspirin (Children'S Aspirin) 324 mg 1X ONCE 03/31/19 20:00 03/31/19 20:01 DC 03/31/19 20:06 324 MG Morphine Sulfate (Morphine Sulfate) 2 mg 1X ONCE 03/31/19 20:00 03/31/19 20:01 DC 03/31/19 20:06 2 MG Allergies Allergies Allergies Coded Allergies Type Severity Reaction Last Updated Verified Sulfa (Sulfonamide Antibiotics) Allergy Intermediate hives 06/08/15 Yes lisinopril Allergy Intermediate hives 06/08/15 Yes Physical Exam Physical Exam Constitutional: Well developed, well nourished, no acute distress, non-toxic appearance. [] HENT: Normocephalic, atraumatic, bilateral external ears normal, oropharynx moist, no oral exudates, nose normal. [] Eyes: PERRLA, EOMI, conjunctiva normal, no discharge. [] Neck: Normal range of motion, no tenderness, supple, no stridor. [] Cardiovascular:Heart rate regular rhythm, no murmur [] Lungs & Thorax: Bilateral breath sounds clear to auscultation [] Abdomen: Bowel sounds normal, soft, no tenderness, no masses, no pulsatile masses. [] Skin: Warm, dry, no erythema, no rash. [] Back: No tenderness, no CVA tenderness. [] Extremities: No tenderness, no cyanosis, no clubbing, ROM intact, no edema. [] Neurologic: Alert and oriented X 3, normal motor function, normal sensory function, no focal deficits noted. [] Psychologic: Affect normal, judgement normal, mood normal. [] Current Patient Data Vital Signs Vital Signs Date Time Temp Pulse Resp B/P (MAP) Pulse Ox O2 Delivery O2 Flow Rate FiO2 03/31/19 17:54 98.1 88 20 155/88 (110) 98 Room Air 98.1 Lab Values Laboratory Tests Test 03/31/19 19:30 03/31/19 20:10 White Blood Count 11.7 x10^3/uL (4.0-11.0) H Red Blood Count 3.54 x10^6/uL (3.50-5.40) Hemoglobin 10.3 g/dL (12.0-15.5) L Hematocrit 31.5 % (36.0-47.0) L Mean Corpuscular Volume 89 fL (79-100) Mean Corpuscular Hemoglobin 29 pg (25-35) Mean Corpuscular Hemoglobin Concent 33 g/dL (31-37) Red Cell Distribution Width 14.6 % (11.5-14.5) H Platelet Count 484 x10^3/uL (140-400) H Neutrophils (%) (Auto) 69 % (31-73) Lymphocytes (%) (Auto) 20 % (24-48) L Monocytes (%) (Auto) 7 % (0-9) Eosinophils (%) (Auto) 3 % (0-3) Basophils (%) (Auto) 1 % (0-3) Neutrophils # (Auto) 8.0 x10^3/uL (1.8-7.7) H Lymphocytes # (Auto) 2.3 x10^3/uL (1.0-4.8) Monocytes # (Auto) 0.9 x10^3/uL (0.0-1.1) Eosinophils # (Auto) 0.4 x10^3/uL (0.0-0.7) Basophils # (Auto) 0.1 x10^3/uL (0.0-0.2) Sodium Level 142 mmol/L (136-145) Potassium Level 3.2 mmol/L (3.5-5.1) L Chloride Level 104 mmol/L (98-107) Carbon Dioxide Level 24 mmol/L (21-32) Anion Gap 14 (6-14) Blood Urea Nitrogen 9 mg/dL (7-20) Creatinine 0.8 mg/dL (0.6-1.0) Estimated GFR (Cockcroft-Gault) 93.9 BUN/Creatinine Ratio 11 (6-20) Glucose Level 217 mg/dL (70-99) H Calcium Level 9.8 mg/dL (8.5-10.1) Total Bilirubin 0.1 mg/dL (0.2-1.0) L Aspartate Amino Transferase (AST) 13 U/L (15-37) L Alanine Aminotransferase (ALT) 11 U/L (14-59) L Alkaline Phosphatase 94 U/L (46-116) Troponin I Quantitative < 0.017 ng/mL (0.000-0.055) Total Protein 8.1 g/dL (6.4-8.2) Albumin 3.1 g/dL (3.4-5.0) L Albumin/Globulin Ratio 0.6 (1.0-1.7) L Laboratory Tests 03/31/19 19:30 Laboratory Tests 03/31/19 20:10 EKG EKG Heart rate 91 normal sinus rhythm no ST elevation no ST depression no acute [place][] Radiology/Procedures Radiology/Procedures [] Impressions: X-ray no acute abnormalities Course & Med Decision Making Course & Med Decision Making Pertinent Labs and Imaging studies reviewed. (See chart for details) []Was evaluated for chief complaint. Workup consisted of laboratory analysis and radiologic imaging. Results reviewed and discussed with patient. EKG troponin within normal limits. Patient's pain treated with morphine with improvement. Discharged home with instruction to follow up with primary care physician. Digna Disclaimer Dragon Disclaimer This electronic medical record was generated, in whole or in part, using a voice recognition dictation system. Departure Departure Impression: Primary Impression: Chest pain Disposition: HOME, SELF-CARE Condition: STABLE Referrals: REJI CORREA MD (PCP) Patient Instructions: Chest Pain (Nonspecific) EARLE GARDNER DO Mar 31, 2019 19:59
[2019-03-31] MEDS ORDERED: MORPHINE SULFATE 2 MG/ML VIAL. IV ONE ×2 (20:00→23:00)
[2019-03-31] MEDS ORDERED: ASPIRIN CHEWABLE 81 MG TABLET. PO ONE (20:00)
[2019-03-31 20:04] LABS: BASO # 0.1 x10^3/uL (0.0-0.2); BASO % 1 % (0-3); EOS # 0.4 x10^3/uL (0.0-0.7); EOS % 3 % (0-3); HEMATOCRIT 31.5 % (36.0-47.0); HEMOGLOBIN 10.3 g/dL (12.0-15.5); LYMPH # 2.3 x10^3/uL (1.0-4.8); LYMPH % 20 % (24-48); MEAN CORPUSCULAR HEMOGLOBIN 29 pg (25-35); MEAN CORPUSCULAR HGB CONC 33 g/dL (31-37); MEAN CORPUSCULAR VOLUME 89 fL (79-100); MONO # 0.9 x10^3/uL (0.0-1.1); MONO % 7 % (0-9); NEUT % 69 % (31-73); PLATELET COUNT 484 x10^3/uL (140-400); RED BLOOD COUNT 3.54 x10^6/uL (3.50-5.40); RED CELL DISTRIBUTION WIDTH 14.6 % (11.5-14.5); WHITE BLOOD COUNT 11.7 x10^3/uL (4.0-11.0)
[2019-03-31 20:29] LABS: CALCIUM 9.8 mg/dL (8.5-10.1); CREATININE 0.8 mg/dL (0.6-1.0); GFR 93.9; POTASSIUM 3.2 mmol/L (3.5-5.1)
[2019-03-31 20:35] LABS: ALBUMIN 3.1 g/dL (3.4-5.0); ALBUMIN/GLOBULIN RATIO 0.6 (1.0-1.7); TOTAL BILIRUBIN 0.1 mg/dL (0.2-1.0); TOTAL PROTEIN 8.1 g/dL (6.4-8.2)
--- NOTE | 2019-03-31 20:35 | RAD ---
Portable AP chest. HISTORY: Chest pain AP view was taken of the chest. Lungs are clear. Heart is normal in size. There is no effusion. IMPRESSION: 1. No acute chest disease. Electronically signed by: Jorden Klein MD (03/31/2019 8:32 PM) [id number]
[2019-03-31 22:25] VITALS: BP 149/87
--- NOTE | 2019-04-01 06:25 | EKG ---
[facility] [address] [place] [address] Test Date: 2019-03-31 Test Time: 17:44:34 Pat Name: MARILU MANCIA Department: Room: Gender: F Striper: : 1975 Requested By: EARLE GARDNER Order Number: [id number] Reading MD: Measurements Intervals Julian Rate: 91 P: 0 OR: 112 QRS: 44 QRSD: 88 T: 37 QT: 382 QTc: 471 Interpretive Statements SINUS RHYTHM PROLONGED QT BORDERLINE ECG No previous ECG available for comparison
== END 2019-03-31 23:00 | disposition home or self-care (01) ==
LOC: ER 17:32
DX: R07.89 Other chest pain (principal); R06.02 Shortness of breath; E11.9 Type 2 diabetes mellitus without complications; I11.0 Hypertensive heart disease with heart failure; I50.9 Heart failure, unspecified; F17.200 Nicotine dependence, unspecified, uncomplicated; I25.10 Atherosclerotic heart disease of native coronary artery without angina pectoris; I25.2 Old myocardial infarction; Z86.73 Personal history of transient ischemic attack (TIA), and cerebral infarction without residual deficits; Z95.5 Presence of coronary angioplasty implant and graft; Z88.2 Allergy status to sulfonamides; Z88.8 Allergy status to other drugs, medicaments and biological substances
CPT/HCPCS: 36415; 71045; 80053; 84484; 85025; 93005; 96374; 96376; 99285; J2270

== ENCOUNTER 2019-04-24 17:20 | Inpatient (IN) | payer MEDICAID ==
[~2019-04-24] VITALS: Ht 154.9 cm; Wt 74.8 kg
[2019-04-24] MEDS ORDERED: NITROGLYCERIN SUBLINGUAL 0.4 MG BOTTLE OF 25. SL PRN (17:45)
[2019-04-24] MEDS ORDERED: ONDANSETRON PF 4 MG/2 ML VIAL. IVP ONE (18:00)
[2019-04-24] MEDS ORDERED: IV NORMAL SALINE 1000ML BAG 1,000 ML IV ONE (18:00)
[2019-04-24] MEDS ORDERED: FAMOTIDINE 20 MG/2 ML VIAL IVP ONE (18:00)
--- NOTE | 2019-04-24 18:12 | RAD ---
PROCEDURE: ACUTE ABDOMEN SERIES STUDY DATE: 04/24/2019 CLINICAL INDICATION / HISTORY: Abdominal pain. Recent feeding tube. Recent pneumonia.. TECHNIQUE: Upright PA chest, supine and upright films of the abdomen were obtained. COMPARISON: Chest x-ray of April 19, 2019 FINDINGS: AP view the chest reveals persistent consolidation of the right lung base, slightly more conspicuous in the interval. The right PICC line evident previously has since been removed. Cardiac and mediastinal silhouette are unremarkable. There is free air, best seen below the right diaphragm. A newly apparent cutaneous gastrostomy tube is present. Overlies the gastric bubble in the left upper quadrant abdomen. Supine and upright views of the abdomen reveal gas-filled large bowel loops with some barium coated fecal debris in the ascending colon and in the rectosigmoid colon. IMPRESSION: New percutaneous gastrostomy tube with likely procedure associated small amount of free intraperitoneal air. Recommend follow-up as clinically warranted to assess expected interval resolution of postprocedure pneumoperitoneum. Electronically signed by: Mariah Posada MD (04/24/2019 6:09 PM) [id number]
[2019-04-24 18:19] LABS: BASO # 0.1 x10^3/uL (0.0-0.2); BASO % 1 % (0-3); EOS # 0.3 x10^3/uL (0.0-0.7); EOS % 2 % (0-3); HEMATOCRIT 25.5 % (36.0-47.0); HEMOGLOBIN 8.2 g/dL (12.0-15.5); LYMPH # 1.7 x10^3/uL (1.0-4.8); LYMPH % 12 % (24-48); MEAN CORPUSCULAR HEMOGLOBIN 26 pg (25-35); MEAN CORPUSCULAR HGB CONC 32 g/dL (31-37); MEAN CORPUSCULAR VOLUME 82 fL (79-100); MONO % 7 % (0-9); NEUT # 11.2 x10^3/uL (1.8-7.7); NEUT % 78 % (31-73); PLATELET COUNT 713 x10^3/uL (140-400); RED BLOOD COUNT 3.12 x10^6/uL (3.50-5.40); RED CELL DISTRIBUTION WIDTH 17.6 % (11.5-14.5); WHITE BLOOD COUNT 14.3 x10^3/uL (4.0-11.0)
[2019-04-24] MEDS: MORPHINE SULFATE 4 MG/ML VIAL. IV/SQ PRN ×2 (18:27→19:34)
[2019-04-24 18:29] LABS: CALCIUM 9.6 mg/dL (8.5-10.1); GFR 72.5; POTASSIUM 4.2 mmol/L (3.5-5.1)
[2019-04-24 18:36] LABS: ALBUMIN 2.4 g/dL (3.4-5.0); ALBUMIN/GLOBULIN RATIO 0.4 (1.0-1.7); MAGNESIUM 1.9 mg/dL (1.8-2.4); TOTAL BILIRUBIN 0.2 mg/dL (0.2-1.0); TOTAL PROTEIN 8.3 g/dL (6.4-8.2)
[2019-04-24 18:43] LABS: CREATINE KINASE 21 U/L (26-192)
[2019-04-24 19:03] LABS: BILIRUBIN,URINE NEGATIVE (NEG); CLARITY,URINE CLEAR; COLOR,URINE YELLOW; NITRITE,URINE NEGATIVE (NEG); PH,URINE 7.5; PROTEIN,URINE 30 mg/dL (NEG-TRACE); UROBILINOGEN,URINE 0.2 mg/dL (0.2 mg/dL)
[2019-04-24 19:10] LABS: AMPHETAMINE/METHAMPHETAMINE NEG (NEG); BARBITURATES NEG (NEG); BENZODIAZEPINES NEG (NEG); CANNABINOIDS NEG (NEG); COCAINE NEG (NEG); METHADONE NEG (NEG); OPIATES POS (NEG); PHENCYCLIDINE NEG (NEG)
[2019-04-24 19:16] LABS: AMORPHOUS SEDIMENT,UR PRESENT /HPF; BACTERIA,URINE 0 /HPF (0-FEW); RBC,URINE 0 /HPF (0-2); SQUAMOUS EPITHELIAL CELL,UR MANY /LPF; WBC,URINE 0 /HPF (0-4)
--- NOTE | 2019-04-24 19:19 | EKG ---
[facility] [address] [place] [address] Test Date: 2019-04-24 Test Time: 17:49:54 Pat Name: MARILU MANCIA Department: Room: Gender: F [employer] Agent: : 1975 Requested By: MALENA CID Order Number: [id number] Reading MD: Measurements Intervals Clark Rate: 99 P: -78 MI: 126 QRS: -6 QRSD: 78 T: -37 QT: 328 QTc: 425 Interpretive Statements SUPRAVENTRICULAR RHYTHM LEFTWARD AXIS QRS(T) CONTOUR ABNORMALITY CONSISTENT WITH INFERIOR INFARCT AGE UNDETERMINED NON SPECIFIC ST DEPRESSION ABNORMAL ECG No previous ECG available for comparison
--- NOTE | 2019-04-24 19:44 | PHYS DOC ---
Past Medical History Past Medical History: CAD, CHF, CVA, Diabetes-Type II, Hypertension, [place], Stroke, Other Additional Past Medical Histor: 3 CARDIAC STENTS, LEFT BREAST CYST Past Surgical History: Angioplasty, Other Additional Past Surgical Histo: CARDIAC STENTS X'S 3,HEART CATH, Smoking Status: Current Every Day Smoker Alcohol Use: None Drug Use: Marijuana Adult General Chief Complaint Chief Complaint: ABDOMINAL PAIN [facility] HPI Patient is a 43 year old female with a history of multiple medical conditions including hypertension, high cholesterol, diabetes type 2, CHF, CVA, recent feeding tube placement who was discharged from the hospital yesterday, patient was sent home with home health. Daughter reports she took metformin crashed the medicine and tried to pass it through the feeding tube with no success because it kept on clamping. She states she was unable to give patient any metformin. The home health nurse showed up and tried to crush the Metformin as well and they were unable to do it and dissolve it in the water. They decided to bring patient to the ED, daughter report patient's glucose was over 400 at home. She reports patient is supposed to be on insulin but she was unable to afford the insulin with the pen. She also reports she was not able to afford patient's hydrocodone and only filled 7 tablets too and is currently requesting we admit patient. Review of Systems Review of Systems Constitutional: Denies fever or chills [] Eyes: Denies change in visual acuity, redness, or eye pain [] HENT: Denies nasal congestion or sore throat [] Respiratory: Denies cough or shortness of breath [] Cardiovascular: No additional information not addressed in HPI [] GI: Reports generalized abdominal pain, reports difficulty passing medications through the feeding tube, denies nausea, vomiting, bloody stools or diarrhea [] : Denies dysuria or hematuria [] Musculoskeletal: Denies back pain or joint pain [] Integument: Denies rash or skin lesions [] Neurologic: Denies headache, focal weakness or sensory changes [] Endocrine-reports hyperglycemia All other systems were reviewed and found to be within normal limits, except as documented in this note. Current Medications Current Medications Current Medications Medications (Trade) Dose Ordered Sig/Payton Start Time Stop Time Status Last Admin Dose Admin Dextrose (Dextrose 50%-Water Syringe) 12.5 gm PRN Q15MIN PRN 04/24/19 20:00 Famotidine (Pepcid Vial) 20 mg 1X ONCE 04/24/19 18:00 04/24/19 18:01 DC 04/24/19 18:27 20 MG Insulin Human Lispro (HumaLOG) 0-5 UNITS TIDWMEALS 04/25/19 08:00 Morphine Sulfate (Morphine Sulfate) 4 mg PRN Q2HR PRN 04/24/19 20:00 04/25/19 19:59 Nitroglycerin (Nitrostat) 0.4 mg PRN Q5MIN PRN 04/24/19 17:45 04/25/19 17:44 Ondansetron HCl (Zofran) 4 mg 1X ONCE 04/24/19 18:00 04/24/19 18:01 DC 04/24/19 18:26 4 MG Sodium Chloride 1,000 ml @ 1,000 mls/hr 1X ONCE 04/24/19 18:00 04/24/19 18:59 DC 04/24/19 18:26 1,000 MLS/HR Allergies Allergies Allergies Coded Allergies Type Severity Reaction Last Updated Verified Sulfa (Sulfonamide Antibiotics) Allergy Intermediate hives 04/21/19 Yes lisinopril Allergy Intermediate hives 04/21/19 Yes Physical Exam Physical Exam Constitutional: Well developed, well nourished, no acute distress, non-toxic appearance. [] HENT: Normocephalic, atraumatic, bilateral external ears normal, oropharynx moist, no oral exudates, nose normal. [] Eyes: PERRLA, EOMI, conjunctiva normal, no discharge. [] Neck: Normal range of motion, no tenderness, supple, no stridor. [] Cardiovascular:Heart rate regular rhythm, no murmur [] Lungs & Thorax: Bilateral breath sounds clear to auscultation [] Abdomen: Feeding tube in place. Bowel sounds normal, soft, no tenderness, no masses, no pulsatile masses. [] Skin: Warm, dry, no erythema, no rash. [] Back: No tenderness, no CVA tenderness. [] Extremities: No tenderness, no cyanosis, no clubbing, Chronic limited ROM to bilateral LE, trace dependant edema. [] Neurologic: Alert and oriented X 3, normal motor function, normal sensory function, no focal deficits noted. slurred speech-chronic Psychologic: Affect normal, judgement normal, mood normal. [] Current Patient Data Vital Signs Vital Signs Date Time Temp Pulse Resp B/P (MAP) Pulse Ox O2 Delivery O2 Flow Rate FiO2 04/24/19 17:22 98.7 97 18 187/97 (127) 98 Room Air 98.7 Lab Values Laboratory Tests Test 04/24/19 18:00 04/24/19 18:55 White Blood Count 14.3 x10^3/uL (4.0-11.0) H Red Blood Count 3.12 x10^6/uL (3.50-5.40) L Hemoglobin 8.2 g/dL (12.0-15.5) L Hematocrit 25.5 % (36.0-47.0) L Mean Corpuscular Volume 82 fL (79-100) Mean Corpuscular Hemoglobin 26 pg (25-35) Mean Corpuscular Hemoglobin Concent 32 g/dL (31-37) Red Cell Distribution Width 17.6 % (11.5-14.5) H Platelet Count 713 x10^3/uL (140-400) H Neutrophils (%) (Auto) 78 % (31-73) H Lymphocytes (%) (Auto) 12 % (24-48) L Monocytes (%) (Auto) 7 % (0-9) Eosinophils (%) (Auto) 2 % (0-3) Basophils (%) (Auto) 1 % (0-3) Neutrophils # (Auto) 11.2 x10^3/uL (1.8-7.7) H Lymphocytes # (Auto) 1.7 x10^3/uL (1.0-4.8) Monocytes # (Auto) 1.0 x10^3/uL (0.0-1.1) Eosinophils # (Auto) 0.3 x10^3/uL (0.0-0.7) Basophils # (Auto) 0.1 x10^3/uL (0.0-0.2) Sodium Level 134 mmol/L (136-145) L Potassium Level 4.2 mmol/L (3.5-5.1) Chloride Level 94 mmol/L (98-107) L Carbon Dioxide Level 30 mmol/L (21-32) Anion Gap 10 (6-14) Blood Urea Nitrogen 10 mg/dL (7-20) Creatinine 1.0 mg/dL (0.6-1.0) Estimated GFR (Cockcroft-Gault) 72.5 BUN/Creatinine Ratio 10 (6-20) Glucose Level 257 mg/dL (70-99) H Calcium Level 9.6 mg/dL (8.5-10.1) Magnesium Level 1.9 mg/dL (1.8-2.4) Total Bilirubin 0.2 mg/dL (0.2-1.0) Aspartate Amino Transferase (AST) 21 U/L (15-37) Alanine Aminotransferase (ALT) 14 U/L (14-59) Alkaline Phosphatase 123 U/L (46-116) H Creatine Kinase 21 U/L (26-192) L Creatine Kinase MB (Mass) < 0.5 ng/mL (0.0-3.6) Creatine Kinase MB Relative Index % (0-4) Troponin I Quantitative 0.053 ng/mL (0.000-0.055) HV-Vsi-U-Type Natriuretic Peptide 1029 pg/mL (0-124) H Total Protein 8.3 g/dL (6.4-8.2) H Albumin 2.4 g/dL (3.4-5.0) L Albumin/Globulin Ratio 0.4 (1.0-1.7) L Lipase 102 U/L (73-393) Thyroid Stimulating Hormone (TSH) 1.744 uIU/mL (0.358-3.74) Urine Collection Type Unknown Urine Color Yellow Urine Clarity Clear Urine pH 7.5 Urine Specific Gilbert <=1.005 Urine Protein 30 mg/dL (NEG-TRACE) Urine Glucose (UA) Negative mg/dL (NEG) Urine Ketones (Stick) Negative mg/dL (NEG) Urine Blood Negative (NEG) Urine Nitrite Negative (NEG) Urine Bilirubin Negative (NEG) Urine Urobilinogen Dipstick 0.2 mg/dL (0.2 mg/dL) Urine Leukocyte Esterase Negative (NEG) Urine RBC 0 /HPF (0-2) Urine WBC 0 /HPF (0-4) Urine Squamous Epithelial Cells Many /LPF Urine Amorphous Sediment Present /HPF Urine Bacteria 0 /HPF (0-FEW) Urine Opiates Screen Pos (NEG) Urine Methadone Screen Neg (NEG) Urine Barbiturates Neg (NEG) Urine Phencyclidine Screen Neg (NEG) Urine Amphetamine/Methamphetamine Neg (NEG) Urine Benzodiazepines Screen Neg (NEG) Urine Cocaine Screen Neg (NEG) Urine Cannabinoids Screen Neg (NEG) Urine Ethyl Alcohol Neg (NEG) Laboratory Tests 04/24/19 18:00 Laboratory Tests 04/24/19 18:00 EKG EKG [address] Matthews sinus rhythm HR 100 no STEMI Radiology/Procedures Radiology/Procedures []PROCEDURE: ACUTE ABDOMEN SERIES PROCEDURE: ACUTE ABDOMEN SERIES STUDY DATE: 04/24/2019 CLINICAL INDICATION / HISTORY: Abdominal pain. Recent feeding tube. Recent pneumonia.. TECHNIQUE: Upright PA chest, supine and upright films of the abdomen were obtained. COMPARISON: Chest x-ray of April 19, 2019 FINDINGS: AP view the chest reveals persistent consolidation of the right lung base, slightly more conspicuous in the interval. The right PICC line evident previously has since been removed. Cardiac and mediastinal silhouette are unremarkable. There is free air, best seen below the right diaphragm. A newly apparent cutaneous gastrostomy tube is present. Overlies the gastric bubble in the left upper quadrant abdomen. Supine and upright views of the abdomen reveal gas-filled large bowel loops with some barium coated fecal debris in the ascending colon and in the rectosigmoid colon. IMPRESSION: New percutaneous gastrostomy tube with likely procedure associated small amount of free intraperitoneal air. Recommend follow-up as clinically warranted to assess expected interval resolution of postprocedure pneumoperitoneum. Electronically signed by: Blanche Posada MD (04/24/2019 6:09 PM) [id number] DICTATED and SIGNED BY: BLANCHE POSADA MD DATE: 04/24/19 180 Course & Med Decision Making Course & Med Decision Making Pertinent Labs and Imaging studies reviewed. (See chart for details) This is a 43-year-old female patient presenting to the ED today with family to be evaluated because they were unable to give metformin through the feeding tube. See HPI. Patient was apparently running high blood glucose in the 400s at home. Patient was discharged from the hospital yesterday. Current patient's work-up in the ED is negative for any acute findings. I went to talk to patient's daughter about discharge. She is very hesitant to take the mother home she is actually refusing stating there is no way she can take care of the mother at home considering metformin cannot go through the feeding tube and they were not able to afford the rest of the diabetes medicine specifically insulin. She states it was $50 and she cannot afford it. Spoke with Dr. Jackson who accepted patient for admission Digna Disclaimer Digna Disclaimer This electronic medical record was generated, in whole or in part, using a voice recognition dictation system. Departure Departure Impression: Primary Impression: Hyperglycemia Additional Impression: Complication of feeding tube Referrals: REJI CORREA MD (PCP) Problem Qualifiers MALENA CID APRN Apr 24, 2019 19:44
[2019-04-24] MEDS ORDERED: DEXTROSE 50% 25 GM / 50ML DISP.SYRIN. IV PRN (20:00)
[2019-04-24 21:25] VITALS: BP 184/99
[2019-04-24] MEDS: MORPHINE SULFATE 4 MG/ML VIAL. IV PRN ×2 (21:30→23:36)
[2019-04-24] MEDS ORDERED: hydrALAZINE 20 MG/ML VIAL. IVP PRN (22:45)
[2019-04-24] MEDS ORDERED: ONDANSETRON PF 4 MG/2 ML VIAL. IV PRN (22:45)
[2019-04-24 23:00] VITALS: BP 171/85
[2019-04-24] MEDS: INSULIN GLARGINE SYRINGE. SQ SCH (23:37)
[2019-04-25] MEDS: MORPHINE SULFATE 4 MG/ML VIAL. IV PRN ×7 (01:37→22:51)
[2019-04-25 03:34] VITALS: BP 171/90
[2019-04-25 05:39] LABS: BASO # 0.1 x10^3/uL (0.0-0.2); BASO % 1 % (0-3); EOS # 0.2 x10^3/uL (0.0-0.7); EOS % 2 % (0-3); HEMATOCRIT 25.4 % (36.0-47.0); HEMOGLOBIN 8.2 g/dL (12.0-15.5); LYMPH # 1.6 x10^3/uL (1.0-4.8); LYMPH % 13 % (24-48); MEAN CORPUSCULAR HEMOGLOBIN 26 pg (25-35); MEAN CORPUSCULAR HGB CONC 32 g/dL (31-37); MEAN CORPUSCULAR VOLUME 82 fL (79-100); MONO # 1.4 x10^3/uL (0.0-1.1); MONO % 11 % (0-9); NEUT # 9.1 x10^3/uL (1.8-7.7); NEUT % 74 % (31-73); PLATELET COUNT 665 x10^3/uL (140-400); RED BLOOD COUNT 3.11 x10^6/uL (3.50-5.40); RED CELL DISTRIBUTION WIDTH 17.6 % (11.5-14.5); WHITE BLOOD COUNT 12.3 x10^3/uL (4.0-11.0)
[2019-04-25 05:49] LABS: CALCIUM 9.3 mg/dL (8.5-10.1); CREATININE 0.9 mg/dL (0.6-1.0); GFR 81.9; POTASSIUM 4.2 mmol/L (3.5-5.1)
[2019-04-25 07:30] VITALS: BP 152/92
[2019-04-25] MEDS: ASPIRIN CHEWABLE 81 MG TABLET. PO SCH (09:30)
[2019-04-25] MEDS: CLOPIDOGREL BISULFATE 75 MG TABLET PO SCH (09:30)
[2019-04-25] MEDS: PANTOPRAZOLE 40 MG TABLET.DR. PO SCH (09:30)
[2019-04-25] MEDS: CARVEDILOL 12.5 MG TABLET. PO SCH ×2 (09:30→17:07)
[2019-04-25] MEDS: FERROUS SULFATE 325 MG TABLET. PO SCH (09:30)
[2019-04-25] MEDS: FLUTICASONE 50MCG/NASAL SPRAY 16GM BOTTLE. NS SCH (09:39)
[2019-04-25] MEDS: INSULIN LISPRO 300 UNITS/3 ML VIAL. SQ SCH ×3 (09:39→17:41)
--- NOTE | 2019-04-25 10:38 | PDOC1 ---
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 She was given script for insulin, but noted she was not able to purchase the insulin due to cost and told LOG LOADER in the ED she is unable to take care of her mother. Daughter report patient's glucose was over 400 at home. KUB showed PEG in proper position. WBC 14.3, Hb 8.2, platelets 713. Glucose 257 on labs. EKG NSR. Past Medical History Cardiovascular: CAD, HTN, Hyperlipidemia Pulmonary: No pertinent hx CENTRAL NERVOUS SYSTEM: CVA GI: No pertinent hx Heme/Onc: Anemia NOS Hepatobiliary: No pertinent hx Psych: Anxiety, Depression Musculoskeletal: Osteoarthritis, Other Rheumatologic: No pertinent hx Infectious disease: No pertinent hx Renal/: No pertinent hx, Other Endocrine: Diabetes Past Surgical History Past Surgical History: , Other (PEG) Family History Family History: Diabetes, Hypertension Social History Smoke: <1 pack per day ALCOHOL: rare Drugs: Other Current Problem List Problem List Problems Medical Problems: (1) Hyperglycemia Status: Acute Current Medications Current Medications Current Medications Nitroglycerin (Nitrostat) 0.4 mg PRN Q5MIN PRN SL CP RATING > 1/10; Start 04/24/19 at 17:45 Morphine Sulfate (Morphine Sulfate) 4 mg PRN Q15MIN PRN IV/SQ PAIN GREATER THAN 3/10 Last administered on 04/24/19at 19:34; Start 04/24/19 at 17:45; Stop 04/24/19 at 20:21; Status DC Sodium Chloride 1,000 ml @ 1,000 mls/hr 1X ONCE IV Last administered on 04/24/19at 18:26; Start 04/24/19 at 18:00; Stop 04/24/19 at 18:59; Status DC Ondansetron HCl (Zofran) 4 mg 1X ONCE IVP Last administered on 3/7/20at 18:26; Start 04/24/19 at 18:00; Stop 04/24/19 at 18:01; Status DC Famotidine (Pepcid Vial) 20 mg 1X ONCE IVP Last administered on 04/24/19at 18:27; Start 04/24/19 at 18:00; Stop 04/24/19 at 18:01; Status DC Morphine Sulfate (Morphine Sulfate) 4 mg PRN Q2HR PRN IV PAIN Last administered on 04/25/19at 07:18; Start 04/24/19 at 20:00 Insulin Human Lispro (HumaLOG) 0-5 UNITS TIDWMEALS SQ Last administered on 04/25/19 09:39; Start 04/25/19 at 08:00 Dextrose (Dextrose 50%-Water Syringe) 12.5 gm PRN Q15MIN PRN IV SEE COMMENTS; Start 04/24/19 at 20:00 Aspirin (Children'S Aspirin) 81 mg DAILYWBKFT PO Last administered on 04/25/19at 09:30; Start 04/25/19 at 08:00 Atorvastatin Calcium (Lipitor) 10 mg HS PO ; Start 04/25/19 at 21:00 Carvedilol (Coreg) 12.5 mg BIDWMEALS PO Last administered on 04/25/19 09:30; Start 04/25/19 at 08:00 Clopidogrel Bisulfate (Plavix) 75 mg DAILYWBKFT PO Last administered on 04/25/19 09:30; Start 04/25/19 at 08:00 Ferrous Sulfate (Feosol) 325 mg DAILY PO Last administered on 04/25/19at 09:30; Start 04/25/19 at 09:00 Fluticasone Propionate (Flonase) 2 spray DAILY NS ; Start 04/25/19 at 09:00 Pantoprazole Sodium (Protonix) 40 mg DAILYAC PO Last administered on 04/25/19at 09:30; Start 04/25/19 at 07:30 Ondansetron HCl (Zofran) 4 mg PRN Q4HRS PRN IV NAUSEA/VOMITING; Start 04/24/19 at 22:45 Hydralazine HCl (Apresoline Inj) 10 mg PRN Q4HRS PRN IVP ELEVATED BP, SEE COMMENTS; Start 3/7/20 at 22:45 Insulin Glargine (Lantus Syringe) 8 unit QHS SQ Last administered on 04/24/19at 23:37; Start 04/24/19 at 23:15 Active Scripts Active Humalog (Insulin Lispro) 100 Unit/1 Ml Insuln.pen 0 Units SQ TIDWMEALS 28 Days Lasix (Furosemide) 20 Mg Tablet 1 Tab PO DAILY 5 Days Glipizide 5 Mg Tablet 1 Tab PO BID Januvia (Sitagliptin Phosphate) 50 Mg Tablet 1 Tab PO DAILY Pantoprazole Sodium (Pantoprazole Sodium) 40 Mg Tablet.dr 40 Mg PO DAILYAC Atorvastatin Calcium 10 Mg Tablet 1 Tab PO DAILY Naproxen 500 Mg Tablet.dr 1 Tab PO BID Fluticasone Propionate Nasal [place] (Fluticasone Propionate) 16 Gm [place].susp 2 [place] NS DAILY Coreg (Carvedilol) 12.5 Mg Tablet 12.5 Mg PO BIDWMEALS Clopidogrel (Clopidogrel Bisulfate) 75 Mg Tablet 75 Mg PO DAILYWBKFT Reported Metformin ER Gastric (Metformin HCl) 500 Mg [id number] 750 Mg PO DAILY Iron Supplement (Ferrous Sulfate) 325 Mg Tablet 1 Tab PO DAILY Aspirin 81 Mg Tab.chew 1 Tab PO DAILY Allergies Allergies: Coded Allergies: Sulfa (Sulfonamide Antibiotics) (Verified Allergy, Intermediate, hives, 04/21/19) lisinopril (Verified Allergy, Intermediate, hives, 04/21/19) ROS Review of System Unable to obtain ROS due to paucity of speech Physical Exam General: Alert, Cooperative, mild distress HEENT: Atraumatic, PERRLA, EOMI, Mucous membr. moist/pink Lungs: Clear to auscultation, Normal air movement Heart: S1S2, RRR, no thrills, no rubs, no gallops, no murmurs Abdomen: Normal bowel sounds, Soft, No tenderness, No hepatosplenomegaly, Other (PEG site clean dry) Rectal Exam: not examined Extremities: No clubbing, No cyanosis, No edema, Normal pulses, No tenderness/swelling Skin: No rashes, No breakdown, No significant lesion Neuro: Normal tone, Sensation intact, Cranial nerves 3-12 NL, Reflexes 2+ Psych/Mental Status: Other Vitals Vitals Vital Signs Date Time Temp Pulse Resp B/P (MAP) Pulse Ox O2 Delivery O2 Flow Rate FiO2 04/25/19 09:30 103 152/92 04/25/19 08:36 Room Air 04/25/19 07:30 97.6 20 92 97.6 Labs Labs Laboratory Tests Test 04/24/19 18:00 04/24/19 18:55 04/24/19 21:07 04/25/19 05:03 White Blood Count 14.3 x10^3/uL (4.0-11.0) 12.3 x10^3/uL (4.0-11.0) Red Blood Count 3.12 x10^6/uL (3.50-5.40) 3.11 x10^6/uL (3.50-5.40) Hemoglobin 8.2 g/dL (12.0-15.5) 8.2 g/dL (12.0-15.5) Hematocrit 25.5 % (36.0-47.0) 25.4 % (36.0-47.0) Mean Corpuscular Volume 82 fL (79-100) 82 fL (79-100) Mean Corpuscular Hemoglobin 26 pg (25-35) 26 pg (25-35) Mean Corpuscular Hemoglobin Concent 32 g/dL (31-37) 32 g/dL (31-37) Red Cell Distribution Width 17.6 % (11.5-14.5) 17.6 % (11.5-14.5) Platelet Count 713 x10^3/uL (140-400) 665 x10^3/uL (140-400) Neutrophils (%) (Auto) 78 % (31-73) 74 % (31-73) Lymphocytes (%) (Auto) 12 % (24-48) 13 % (24-48) Monocytes (%) (Auto) 7 % (0-9) 11 % (0-9) Eosinophils (%) (Auto) 2 % (0-3) 2 % (0-3) Basophils (%) (Auto) 1 % (0-3) 1 % (0-3) Neutrophils # (Auto) 11.2 x10^3/uL (1.8-7.7) 9.1 x10^3/uL (1.8-7.7) Lymphocytes # (Auto) 1.7 x10^3/uL (1.0-4.8) 1.6 x10^3/uL (1.0-4.8) Monocytes # (Auto) 1.0 x10^3/uL (0.0-1.1) 1.4 x10^3/uL (0.0-1.1) Eosinophils # (Auto) 0.3 x10^3/uL (0.0-0.7) 0.2 x10^3/uL (0.0-0.7) Basophils # (Auto) 0.1 x10^3/uL (0.0-0.2) 0.1 x10^3/uL (0.0-0.2) Sodium Level 134 mmol/L (136-145) 134 mmol/L (136-145) Potassium Level 4.2 mmol/L (3.5-5.1) 4.2 mmol/L (3.5-5.1) Chloride Level 94 mmol/L (98-107) 98 mmol/L (98-107) Carbon Dioxide Level 30 mmol/L (21-32) 29 mmol/L (21-32) Anion Gap 10 (6-14) 7 (6-14) Blood Urea Nitrogen 10 mg/dL (7-20) 7 mg/dL (7-20) Creatinine 1.0 mg/dL (0.6-1.0) 0.9 mg/dL (0.6-1.0) Estimated GFR (Cockcroft-Gault) 72.5 81.9 BUN/Creatinine Ratio 10 (6-20) Glucose Level 257 mg/dL (70-99) 249 mg/dL (70-99) Calcium Level 9.6 mg/dL (8.5-10.1) 9.3 mg/dL (8.5-10.1) Magnesium Level 1.9 mg/dL (1.8-2.4) Total Bilirubin 0.2 mg/dL (0.2-1.0) Aspartate Amino Transf (AST/SGOT) 21 U/L (15-37) Alanine Aminotransferase (ALT/SGPT) 14 U/L (14-59) Alkaline Phosphatase 123 U/L (46-116) Creatine Kinase 21 U/L (26-192) Creatine Kinase MB (Mass) < 0.5 ng/mL (0.0-3.6) Creatine Kinase MB Relative Index % (0-4) Troponin I Quantitative 0.053 ng/mL (0.000-0.055) KE-Cja-W-Type Natriuretic Peptide 1029 pg/mL (0-124) Total Protein 8.3 g/dL (6.4-8.2) Albumin 2.4 g/dL (3.4-5.0) Albumin/Globulin Ratio 0.4 (1.0-1.7) Lipase 102 U/L (73-393) Thyroid Stimulating Hormone (TSH) 1.744 uIU/mL (0.358-3.74) Urine Collection Type Unknown Urine Color Yellow Urine Clarity Clear Urine pH 7.5 Urine Specific Conner <=1.005 Urine Protein 30 mg/dL (NEG-TRACE) Urine Glucose (UA) Negative mg/dL (NEG) Urine Ketones (Stick) Negative mg/dL (NEG) Urine Blood Negative (NEG) Urine Nitrite Negative (NEG) Urine Bilirubin Negative (NEG) Urine Urobilinogen Dipstick 0.2 mg/dL (0.2 mg/dL) Urine Leukocyte Esterase Negative (NEG) Urine RBC 0 /HPF (0-2) Urine WBC 0 /HPF (0-4) Urine Squamous Epithelial Cells Many /LPF Urine Amorphous Sediment Present /HPF Urine Bacteria 0 /HPF (0-FEW) Urine Opiates Screen Pos (NEG) Urine Methadone Screen Neg (NEG) Urine Barbiturates Neg (NEG) Urine Phencyclidine Screen Neg (NEG) Urine Amphetamine/Methamphetamine Neg (NEG) Urine Benzodiazepines Screen Neg (NEG) Urine Cocaine Screen Neg (NEG) Urine Cannabinoids Screen Neg (NEG) Urine Ethyl Alcohol Neg (NEG) Glucose (Fingerstick) 197 mg/dL (70-99) Test 04/25/19 09:25 Glucose (Fingerstick) 271 mg/dL (70-99) Laboratory Tests Test 04/24/19 18:00 04/24/19 18:55 04/24/19 21:07 04/25/19 05:03 White Blood Count 14.3 x10^3/uL (4.0-11.0) 12.3 x10^3/uL (4.0-11.0) Red Blood Count 3.12 x10^6/uL (3.50-5.40) 3.11 x10^6/uL (3.50-5.40) Hemoglobin 8.2 g/dL (12.0-15.5) 8.2 g/dL (12.0-15.5) Hematocrit 25.5 % (36.0-47.0) 25.4 % (36.0-47.0) Mean Corpuscular Volume 82 fL (79-100) 82 fL (79-100) Mean Corpuscular Hemoglobin 26 pg (25-35) 26 pg (25-35) Mean Corpuscular Hemoglobin Concent 32 g/dL (31-37) 32 g/dL (31-37) Red Cell Distribution Width 17.6 % (11.5-14.5) 17.6 % (11.5-14.5) Platelet Count 713 x10^3/uL (140-400) 665 x10^3/uL (140-400) Neutrophils (%) (Auto) 78 % (31-73) 74 % (31-73) Lymphocytes (%) (Auto) 12 % (24-48) 13 % (24-48) Monocytes (%) (Auto) 7 % (0-9) 11 % (0-9) Eosinophils (%) (Auto) 2 % (0-3) 2 % (0-3) Basophils (%) (Auto) 1 % (0-3) 1 % (0-3) Neutrophils # (Auto) 11.2 x10^3/uL (1.8-7.7) 9.1 x10^3/uL (1.8-7.7) Lymphocytes # (Auto) 1.7 x10^3/uL (1.0-4.8) 1.6 x10^3/uL (1.0-4.8) Monocytes # (Auto) 1.0 x10^3/uL (0.0-1.1) 1.4 x10^3/uL (0.0-1.1) Eosinophils # (Auto) 0.3 x10^3/uL (0.0-0.7) 0.2 x10^3/uL (0.0-0.7) Basophils # (Auto) 0.1 x10^3/uL (0.0-0.2) 0.1 x10^3/uL (0.0-0.2) Sodium Level 134 mmol/L (136-145) 134 mmol/L (136-145) Potassium Level 4.2 mmol/L (3.5-5.1) 4.2 mmol/L (3.5-5.1) Chloride Level 94 mmol/L (98-107) 98 mmol/L (98-107) Carbon Dioxide Level 30 mmol/L (21-32) 29 mmol/L (21-32) Anion Gap 10 (6-14) 7 (6-14) Blood Urea Nitrogen 10 mg/dL (7-20) 7 mg/dL (7-20) Creatinine 1.0 mg/dL (0.6-1.0) 0.9 mg/dL (0.6-1.0) Estimated GFR (Cockcroft-Gault) 72.5 81.9 BUN/Creatinine Ratio 10 (6-20) Glucose Level 257 mg/dL (70-99) 249 mg/dL (70-99) Calcium Level 9.6 mg/dL (8.5-10.1) 9.3 mg/dL (8.5-10.1) Magnesium Level 1.9 mg/dL (1.8-2.4) Total Bilirubin 0.2 mg/dL (0.2-1.0) Aspartate Amino Transf (AST/SGOT) 21 U/L (15-37) Alanine Aminotransferase (ALT/SGPT) 14 U/L (14-59) Alkaline Phosphatase 123 U/L (46-116) Creatine Kinase 21 U/L (26-192) Creatine Kinase MB (Mass) < 0.5 ng/mL (0.0-3.6) Creatine Kinase MB Relative Index % (0-4) Troponin I Quantitative 0.053 ng/mL (0.000-0.055) EN-Ojr-G-Type Natriuretic Peptide 1029 pg/mL (0-124) Total Protein 8.3 g/dL (6.4-8.2) Albumin 2.4 g/dL (3.4-5.0) Albumin/Globulin Ratio 0.4 (1.0-1.7) Lipase 102 U/L (73-393) Thyroid Stimulating Hormone (TSH) 1.744 uIU/mL (0.358-3.74) Urine Collection Type Unknown Urine Color Yellow Urine Clarity Clear Urine pH 7.5 Urine Specific Conner <=1.005 Urine Protein 30 mg/dL (NEG-TRACE) Urine Glucose (UA) Negative mg/dL (NEG) Urine Ketones (Stick) Negative mg/dL (NEG) Urine Blood Negative (NEG) Urine Nitrite Negative (NEG) Urine Bilirubin Negative (NEG) Urine Urobilinogen Dipstick 0.2 mg/dL (0.2 mg/dL) Urine Leukocyte Esterase Negative (NEG) Urine RBC 0 /HPF (0-2) Urine WBC 0 /HPF (0-4) Urine Squamous Epithelial Cells Many /LPF Urine Amorphous Sediment Present /HPF Urine Bacteria 0 /HPF (0-FEW) Urine Opiates Screen Pos (NEG) Urine Methadone Screen Neg (NEG) Urine Barbiturates Neg (NEG) Urine Phencyclidine Screen Neg (NEG) Urine Amphetamine/Methamphetamine Neg (NEG) Urine Benzodiazepines Screen Neg (NEG) Urine Cocaine Screen Neg (NEG) Urine Cannabinoids Screen Neg (NEG) Urine Ethyl Alcohol Neg (NEG) Glucose (Fingerstick) 197 mg/dL (70-99) Test 04/25/19 09:25 Glucose (Fingerstick) 271 mg/dL (70-99) VTE Prophylaxis Ordered VTE Prophylaxis Devices: No VTE Pharmacological Prophylaxi: Yes Assessment/Plan Assessment/Plan A/P: DM2 with hyperglycemia - will place back on insulin regimen. Glucophage XR is not to be crushed. Riomet liquid would be preferred Failure to thrive Chronic obstructive pulmonary disease - will cont nebs prn Tobacco dependent - not currently smoking now Coronary artery disease - s/p stenting x3, cont cadiac meds Expressive aphasia - with dysphagia - ATTRACTION ATTENDANT to see. Cont PEG feeds Essential hypertension - cont meds History of cerebrovascular accident with right-sided weakness - PT and OT for rehab. she needs placement, unable to care for herself and now there is no one to care for her at home Dyslipidemia - cont statin FEN - PEG feeds 40cc/hr glucerna + 100ml q6hr free water bolus PPX - lovenox FULL CODE Dispo - failed home with home health. Should attempt referral for SNF. FLORESITA VALLEJO MD Apr 25, 2019 10:38
[2019-04-25 11:30] VITALS: BP 167/98
[2019-04-25 15:30] VITALS: BP 150/98
[2019-04-25 19:00] VITALS: BP 154/100
[2019-04-25] MEDS: ATORVASTATIN CALCIUM 10 MG TABLET. PO SCH (21:03)
[2019-04-25] MEDS: INSULIN GLARGINE SYRINGE. SQ SCH (21:04)
[2019-04-25] MEDS ORDERED: ACETAMINOPHEN 650 MG/20.3 ML SOLUTION. PO PRN (22:45)
[2019-04-25 23:00] VITALS: BP 135/84
[2019-04-26] MEDS: MORPHINE SULFATE 4 MG/ML VIAL. IV PRN ×7 (02:13→20:27)
[2019-04-26 03:00] VITALS: BP 150/99
[2019-04-26 07:00] VITALS: BP 135/89
[2019-04-26] MEDS: FLUTICASONE 50MCG/NASAL SPRAY 16GM BOTTLE. NS SCH (07:44)
[2019-04-26] MEDS: FERROUS SULFATE 325 MG TABLET. PO SCH (07:44)
[2019-04-26] MEDS: ASPIRIN CHEWABLE 81 MG TABLET. PO SCH (07:45)
[2019-04-26] MEDS: PANTOPRAZOLE 40 MG TABLET.DR. PO SCH (07:45)
[2019-04-26] MEDS: CARVEDILOL 12.5 MG TABLET. PO SCH ×2 (07:45→16:10)
[2019-04-26] MEDS: CLOPIDOGREL BISULFATE 75 MG TABLET PO SCH (07:45)
[2019-04-26] MEDS: INSULIN LISPRO 300 UNITS/3 ML VIAL. SQ SCH ×3 (07:57→17:22)
[2019-04-26 11:00] VITALS: BP 134/81
--- NOTE | 2019-04-26 13:53 | NUR ---
ROCÍO following. Discussed with RN, pt from home with family. PT/OT recommending acute rehab, pt's insurance denied last admission, however pt has now failed outpatient. ROCÍO spoke with pt's daughter/ caregiver, Ángela, she would like referral sent to [facility] again. Ángela plans on taking pt home after rehab. ROCÍO explained rehab would likely only be 7 days due to pt's insurance, Ángela agreed the plan was still to take pt home afterwards. ROCÍO faxed referral to [facility], awaiting acceptance decision and insurance auth. RN notified. ROCÍO will continue to follow.
[2019-04-26 15:00] VITALS: BP 134/85
--- NOTE | 2019-04-26 15:49 | PDOC ---
PROGRESS NOTES Chief Complaint Chief Complaint DM2 with hyperglycemia - will place back on insulin regimen. Glucophage XR is not to be crushed. 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 Cont PEG feeds Essential hypertension - cont meds History of cerebrovascular accident with right-sided weakness - PT and OT for rehab. she needs placement, unable to care for herself and now there is no one to care for her at home Dyslipidemia - cont statin FEN - PEG feeds 40cc/hr glucerna + 100ml q6hr free water bolus PPX - lovenox FULL CODE Dispo - failed home with home health. Case management have sent referrals for SNF placement awaiting for bed History of Present Illness History of Present Illness Patient continues to be tearful just like in her last admission, she seems to have copious secretions and is having a hard time managing them. Suction has been attempted reassurance has been provided to the patient will follow recommendations from speech therapy Vitals Vitals Vital Signs Date Time Temp Pulse Resp B/P (MAP) Pulse Ox O2 Delivery O2 Flow Rate FiO2 04/26/19 13:45 22 90 Room Air 04/26/19 11:00 99.0 93 134/81 (98) 99.0 Physical Exam General: Alert, Cooperative, mild distress Lungs: Clear Abdomen: Normal bowel sounds, Soft, No tenderness, No hepatosplenomegaly, Other (PEG site clean dry) Extremities: No clubbing, No cyanosis, No edema, Normal pulses, No tenderness/swelling Skin: No rashes, No breakdown, No significant lesion Labs LABS Laboratory Tests Test 04/25/19 17:02 04/25/19 20:58 04/26/19 07:39 04/26/19 11:50 Glucose (Fingerstick) 209 mg/dL (70-99) 202 mg/dL (70-99) 294 mg/dL (70-99) 245 mg/dL (70-99) Assessment and Plan Assessmemt and Plan Problems Medical Problems: (1) Hyperglycemia Status: Acute Comment Review of Relevant I have reviewed the following items cecilia (where applicable) has been applied. Labs Laboratory Tests Test 04/24/19 18:00 3/7/20 18:55 04/24/19 21:07 04/25/19 05:03 White Blood Count 14.3 x10^3/uL (4.0-11.0) 12.3 x10^3/uL (4.0-11.0) Red Blood Count 3.12 x10^6/uL (3.50-5.40) 3.11 x10^6/uL (3.50-5.40) Hemoglobin 8.2 g/dL (12.0-15.5) 8.2 g/dL (12.0-15.5) Hematocrit 25.5 % (36.0-47.0) 25.4 % (36.0-47.0) Mean Corpuscular Volume 82 fL (79-100) 82 fL (79-100) Mean Corpuscular Hemoglobin 26 pg (25-35) 26 pg (25-35) Mean Corpuscular Hemoglobin Concent 32 g/dL (31-37) 32 g/dL (31-37) Red Cell Distribution Width 17.6 % (11.5-14.5) 17.6 % (11.5-14.5) Platelet Count 713 x10^3/uL (140-400) 665 x10^3/uL (140-400) Neutrophils (%) (Auto) 78 % (31-73) 74 % (31-73) Lymphocytes (%) (Auto) 12 % (24-48) 13 % (24-48) Monocytes (%) (Auto) 7 % (0-9) 11 % (0-9) Eosinophils (%) (Auto) 2 % (0-3) 2 % (0-3) Basophils (%) (Auto) 1 % (0-3) 1 % (0-3) Neutrophils # (Auto) 11.2 x10^3/uL (1.8-7.7) 9.1 x10^3/uL (1.8-7.7) Lymphocytes # (Auto) 1.7 x10^3/uL (1.0-4.8) 1.6 x10^3/uL (1.0-4.8) Monocytes # (Auto) 1.0 x10^3/uL (0.0-1.1) 1.4 x10^3/uL (0.0-1.1) Eosinophils # (Auto) 0.3 x10^3/uL (0.0-0.7) 0.2 x10^3/uL (0.0-0.7) Basophils # (Auto) 0.1 x10^3/uL (0.0-0.2) 0.1 x10^3/uL (0.0-0.2) Sodium Level 134 mmol/L (136-145) 134 mmol/L (136-145) Potassium Level 4.2 mmol/L (3.5-5.1) 4.2 mmol/L (3.5-5.1) Chloride Level 94 mmol/L (98-107) 98 mmol/L (98-107) Carbon Dioxide Level 30 mmol/L (21-32) 29 mmol/L (21-32) Anion Gap 10 (6-14) 7 (6-14) Blood Urea Nitrogen 10 mg/dL (7-20) 7 mg/dL (7-20) Creatinine 1.0 mg/dL (0.6-1.0) 0.9 mg/dL (0.6-1.0) Estimated GFR (Cockcroft-Gault) 72.5 81.9 BUN/Creatinine Ratio 10 (6-20) Glucose Level 257 mg/dL (70-99) 249 mg/dL (70-99) Calcium Level 9.6 mg/dL (8.5-10.1) 9.3 mg/dL (8.5-10.1) Magnesium Level 1.9 mg/dL (1.8-2.4) Total Bilirubin 0.2 mg/dL (0.2-1.0) Aspartate Amino Transf (AST/SGOT) 21 U/L (15-37) Alanine Aminotransferase (ALT/SGPT) 14 U/L (14-59) Alkaline Phosphatase 123 U/L (46-116) Creatine Kinase 21 U/L (26-192) Creatine Kinase MB (Mass) < 0.5 ng/mL (0.0-3.6) Creatine Kinase MB Relative Index % (0-4) Troponin I Quantitative 0.053 ng/mL (0.000-0.055) [id number] Natriuretic Peptide 1029 pg/mL (0-124) Total Protein 8.3 g/dL (6.4-8.2) Albumin 2.4 g/dL (3.4-5.0) Albumin/Globulin Ratio 0.4 (1.0-1.7) Lipase 102 U/L (73-393) Thyroid Stimulating Hormone (TSH) 1.744 uIU/mL (0.358-3.74) Urine Collection Type Unknown Urine Color Yellow Urine Clarity Clear Urine pH 7.5 Urine Specific [place] <=1.005 Urine Protein 30 mg/dL (NEG-TRACE) Urine Glucose (UA) Negative mg/dL (NEG) Urine Ketones (Stick) Negative mg/dL (NEG) Urine Blood Negative (NEG) Urine Nitrite Negative (NEG) Urine Bilirubin Negative (NEG) Urine Urobilinogen Dipstick 0.2 mg/dL (0.2 mg/dL) Urine Leukocyte Esterase Negative (NEG) Urine RBC 0 /HPF (0-2) Urine WBC 0 /HPF (0-4) Urine Squamous Epithelial Cells Many /LPF Urine Amorphous Sediment Present /HPF Urine Bacteria 0 /HPF (0-FEW) Urine Opiates Screen Pos (NEG) Urine Methadone Screen Neg (NEG) Urine Barbiturates Neg (NEG) Urine Phencyclidine Screen Neg (NEG) Urine Amphetamine/Methamphetamine Neg (NEG) Urine Benzodiazepines Screen Neg (NEG) Urine Cocaine Screen Neg (NEG) Urine Cannabinoids Screen Neg (NEG) Urine Ethyl Alcohol Neg (NEG) Glucose (Fingerstick) 197 mg/dL (70-99) Test 04/25/19 09:25 04/25/19 12:02 04/25/19 17:02 04/25/19 20:58 Glucose (Fingerstick) 271 mg/dL (70-99) 178 mg/dL (70-99) 209 mg/dL (70-99) 202 mg/dL (70-99) Test 04/26/19 07:39 04/26/19 11:50 Glucose (Fingerstick) 294 mg/dL (70-99) 245 mg/dL (70-99) Laboratory Tests Test 04/25/19 17:02 04/25/19 20:58 04/26/19 07:39 04/26/19 11:50 Glucose (Fingerstick) 209 mg/dL (70-99) 202 mg/dL (70-99) 294 mg/dL (70-99) 245 mg/dL (70-99) Medications Current Medications Nitroglycerin (Nitrostat) 0.4 mg PRN Q5MIN PRN SL CP RATING > 1/10; Start 04/24/19 at 17:45 Morphine Sulfate (Morphine Sulfate) 4 mg PRN Q15MIN PRN IV/SQ PAIN GREATER THAN 3/10 Last administered on 04/24/19 19:34; Start 04/24/19 at 17:45; Stop 04/24/19 at 20:21; Status DC Sodium Chloride 1,000 ml @ 1,000 mls/hr 1X ONCE IV Last administered on 04/24/19 18:26; Start 04/24/19 at 18:00; Stop 04/24/19 at 18:59; Status DC Ondansetron HCl (Zofran) 4 mg 1X ONCE IVP Last administered on 04/24/19 18:26; Start 04/24/19 at 18:00; Stop 04/24/19 at 18:01; Status DC Famotidine (Pepcid Vial) 20 mg 1X ONCE IVP Last administered on 04/24/19 18:27; Start 04/24/19 at 18:00; Stop 04/24/19 at 18:01; Status DC Morphine Sulfate (Morphine Sulfate) 4 mg PRN Q2HR PRN IV PAIN Last administered on 04/26/19 13:21; Start 04/24/19 at 20:00 Insulin Human Lispro (HumaLOG) 0-5 UNITS TIDWMEALS SQ Last administered on 04/26/19 11:53; Start 04/25/19 at 08:00 Dextrose (Dextrose 50%-Water Syringe) 12.5 gm PRN Q15MIN PRN IV SEE COMMENTS; Start 04/24/19 at 20:00 Aspirin (Children'S Aspirin) 81 mg DAILYWBKFT PO Last administered on 04/26/19 07:45; Start 04/25/19 at 08:00 Atorvastatin Calcium (Lipitor) 10 mg HS PO Last administered on 04/25/19 21:03; Start 04/25/19 at 21:00 Carvedilol (Coreg) 12.5 mg BIDWMEALS PO Last administered on 04/26/19 07:45; Start 04/25/19 at 08:00 Clopidogrel Bisulfate (Plavix) 75 mg DAILYWBKFT PO Last administered on 04/26/19 07:45; Start 04/25/19 at 08:00 Ferrous Sulfate (Feosol) 325 mg DAILY PO Last administered on 04/26/19 07:44; Start 04/25/19 at 09:00 Fluticasone Propionate (Flonase) 2 spray DAILY NS Last administered on 04/26/19 07:44; Start 04/25/19 at 09:00 Pantoprazole Sodium (Protonix) 40 mg DAILYAC PO Last administered on 04/26/19at 07:45; Start 04/25/19 at 07:30 Ondansetron HCl (Zofran) 4 mg PRN Q4HRS PRN IV NAUSEA/VOMITING; Start 04/24/19 at 22:45 Hydralazine HCl (Apresoline Inj) 10 mg PRN Q4HRS PRN IVP ELEVATED BP, SEE COMMENTS Last administered on 04/25/19at 22:50; Start 04/24/19 at 22:45 Insulin Glargine (Lantus Syringe) 8 unit QHS SQ Last administered on 04/25/19at 21:04; Start 04/24/19 at 23:15 Acetaminophen (Tylenol) 650 mg PRN Q6HRS PRN PO MILD PAIN / TEMP; Start 04/25/19 at 22:45 Active Scripts Active Humalog (Insulin Lispro) 100 Unit/1 Ml Insuln.pen 0 Units SQ TIDWMEALS 28 Days Lasix (Furosemide) 20 Mg Tablet 1 Tab PO DAILY 5 Days Glipizide 5 Mg Tablet 1 Tab PO BID Januvia (Sitagliptin Phosphate) 50 Mg Tablet 1 Tab PO DAILY Pantoprazole Sodium (Pantoprazole Sodium) 40 Mg Tablet.dr 40 Mg PO DAILYAC Atorvastatin Calcium 10 Mg Tablet 1 Tab PO DAILY Naproxen 500 Mg Tablet.dr 1 Tab PO BID Fluticasone Propionate Nasal [place] (Fluticasone Propionate) 16 Gm [place].susp 2 [place] NS DAILY Coreg (Carvedilol) 12.5 Mg Tablet 12.5 Mg PO BIDWMEALS Clopidogrel (Clopidogrel Bisulfate) 75 Mg Tablet 75 Mg PO DAILYWBKFT Reported Metformin ER Gastric (Metformin HCl) 500 Mg [id number] 750 Mg PO DAILY Iron Supplement (Ferrous Sulfate) 325 Mg Tablet 1 Tab PO DAILY Aspirin 81 Mg Tab.chew 1 Tab PO DAILY Vitals/I & O Vital Sign - Last 24 Hours 04/25/19 04/25/19 04/25/19 04/25/19 15:57 16:34 17:07 19:00 Pulse 104 B/P (MAP) 161/95 O2 Delivery Room Air Room Air Room Air 04/25/19 04/25/19 04/25/19 04/25/19 19:00 19:43 20:10 22:50 Temp 100.0 100.0 Pulse 106 100 Resp 20 16 B/P (MAP) 154/100 (118) 160/99 Pulse Ox 94 O2 Delivery Room Air Room Air Room Air 04/25/19 04/25/19 04/25/19 04/26/19 22:51 23:00 23:15 02:13 Temp 97.8 97.8 Pulse 104 Resp 19 B/P (MAP) 135/84 (101) Pulse Ox 94 93 O2 Delivery Room Air Room Air Room Air Room Air 04/26/19 04/26/19 04/26/19 04/26/19 02:40 03:00 05:13 05:43 Temp 98.1 98.1 Pulse 104 Resp 16 B/P (MAP) 150/99 (116) Pulse Ox 92 O2 Delivery Room Air Room Air Room Air Room Air 04/26/19 04/26/19 04/26/19 04/26/19 07:00 07:44 07:45 08:00 Temp 98.6 98.6 Pulse 88 104 Resp 20 B/P (MAP) 135/89 (104) 150/99 Pulse Ox 92 92 O2 Delivery Room Air Room Air Room Air 04/26/19 04/26/19 04/26/19 04/26/19 08:14 10:19 10:49 11:00 Temp 99.0 99.0 Pulse 93 Resp 20 B/P (MAP) 134/81 (98) Pulse Ox 92 92 92 90 O2 Delivery Room Air Room Air Room Air Room Air 04/26/19 13:45 Resp 22 Pulse Ox 90 O2 Delivery Room Air Intake and Output 04/25/19 04/25/19 04/26/19 15:00 23:00 07:00 Intake Total 150 ml 321 ml 625 ml Balance 150 ml 321 ml 625 ml PRATEEK GIVENS MD Apr 26, 2019 15:48
[2019-04-26 19:00] VITALS: BP 148/85
[2019-04-26] MEDS: ATORVASTATIN CALCIUM 10 MG TABLET. PO SCH (20:27)
[2019-04-26] MEDS: INSULIN GLARGINE SYRINGE. SQ SCH (20:30)
[2019-04-26 22:43] VITALS: BP 136/79
[2019-04-27] MEDS: MORPHINE SULFATE 4 MG/ML VIAL. IV PRN ×5 (00:29→20:52)
[2019-04-27 03:00] VITALS: BP 150/86
[2019-04-27 07:42] VITALS: BP 138/85
[2019-04-27] MEDS: FLUTICASONE 50MCG/NASAL SPRAY 16GM BOTTLE. NS SCH (09:00)
[2019-04-27 09:17] LABS: BASO # 0.1 x10^3/uL (0.0-0.2); BASO % 1 % (0-3); EOS # 0.4 x10^3/uL (0.0-0.7); EOS % 4 % (0-3); HEMATOCRIT 23.3 % (36.0-47.0); HEMOGLOBIN 7.6 g/dL (12.0-15.5); LYMPH # 1.8 x10^3/uL (1.0-4.8); LYMPH % 15 % (24-48); MEAN CORPUSCULAR HEMOGLOBIN 26 pg (25-35); MEAN CORPUSCULAR HGB CONC 33 g/dL (31-37); MEAN CORPUSCULAR VOLUME 81 fL (79-100); MONO # 1.2 x10^3/uL (0.0-1.1); MONO % 10 % (0-9); NEUT # 8.6 x10^3/uL (1.8-7.7); NEUT % 71 % (31-73); PLATELET COUNT 601 x10^3/uL (140-400); RED BLOOD COUNT 2.88 x10^6/uL (3.50-5.40); RED CELL DISTRIBUTION WIDTH 18.1 % (11.5-14.5); WHITE BLOOD COUNT 12.1 x10^3/uL (4.0-11.0)
--- NOTE | 2019-04-27 09:18 | NUR ---
SW following. Discussed with RN, pt is accepted at [facility] pending insurance approval. SW will continue to follow.
[2019-04-27] MEDS: CLOPIDOGREL BISULFATE 75 MG TABLET PO SCH (09:26)
[2019-04-27] MEDS: PANTOPRAZOLE 40 MG TABLET.DR. PO SCH (09:26)
[2019-04-27] MEDS: CARVEDILOL 12.5 MG TABLET. PO SCH ×2 (09:27→18:00)
[2019-04-27] MEDS: ASPIRIN CHEWABLE 81 MG TABLET. PO SCH (09:27)
[2019-04-27] MEDS: FERROUS SULFATE 325 MG TABLET. PO SCH (09:27)
[2019-04-27] MEDS: INSULIN LISPRO 300 UNITS/3 ML VIAL. SQ SCH ×3 (09:33→19:22)
[2019-04-27 11:00] VITALS: BP 143/73
--- NOTE | 2019-04-27 11:12 | PDOC ---
PROGRESS NOTES Chief Complaint Chief Complaint DM2 with hyperglycemia - will place back on insulin regimen. Glucophage XR is not to be crushed. 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 Cont PEG feeds Essential hypertension - cont meds History of cerebrovascular accident with right-sided weakness - PT and OT for rehab. she needs placement, unable to care for herself and now there is no one to care for her at home Dyslipidemia - cont statin FEN - PEG feeds 40cc/hr glucerna + 100ml q6hr free water bolus PPX - lovenox FULL CODE Dispo - failed home with home health. Case management have sent referrals for SNF placement awaiting for bed History of Present Illness History of Present Illness Patient continues to be tearful just like in her last admission, secretions are better today. Patient still complaining of chest discomfort she had evidence of pneumo peritoneum in her abdominal series upon admission. We will repeat imaging studies today Vitals Vitals Vital Signs Date Time Temp Pulse Resp B/P (MAP) Pulse Ox O2 Delivery O2 Flow Rate FiO2 04/27/19 09:27 98 138/85 04/27/19 07:42 98.3 20 92 Room Air 98.3 Physical Exam General: Alert, Cooperative, mild distress Lungs: Clear Abdomen: Normal bowel sounds, Soft, No tenderness, No hepatosplenomegaly, Other (PEG site clean dry) Extremities: No clubbing, No cyanosis, No edema, Normal pulses, No tenderness/swelling Skin: No rashes, No breakdown, No significant lesion Labs LABS Laboratory Tests Test 04/26/19 11:50 04/26/19 16:38 04/26/19 20:15 04/27/19 07:53 Glucose (Fingerstick) 245 mg/dL (70-99) 218 mg/dL (70-99) 187 mg/dL (70-99) 290 mg/dL (70-99) Test 04/27/19 08:50 White Blood Count 12.1 x10^3/uL (4.0-11.0) Red Blood Count 2.88 x10^6/uL (3.50-5.40) Hemoglobin 7.6 g/dL (12.0-15.5) Hematocrit 23.3 % (36.0-47.0) Mean Corpuscular Volume 81 fL (79-100) Mean Corpuscular Hemoglobin 26 pg (25-35) Mean Corpuscular Hemoglobin Concent 33 g/dL (31-37) Red Cell Distribution Width 18.1 % (11.5-14.5) Platelet Count 601 x10^3/uL (140-400) Neutrophils (%) (Auto) 71 % (31-73) Lymphocytes (%) (Auto) 15 % (24-48) Monocytes (%) (Auto) 10 % (0-9) Eosinophils (%) (Auto) 4 % (0-3) Basophils (%) (Auto) 1 % (0-3) Neutrophils # (Auto) 8.6 x10^3/uL (1.8-7.7) Lymphocytes # (Auto) 1.8 x10^3/uL (1.0-4.8) Monocytes # (Auto) 1.2 x10^3/uL (0.0-1.1) Eosinophils # (Auto) 0.4 x10^3/uL (0.0-0.7) Basophils # (Auto) 0.1 x10^3/uL (0.0-0.2) Ionized Calcium 1.23 mmol/L (1.13-1.32) Review of Systems Review of Systems Unable to obtain due to aphasia Assessment and Plan Assessmemt and Plan Problems Medical Problems: (1) Hyperglycemia Status: Acute Comment Review of Relevant I have reviewed the following items cecilia (where applicable) has been applied. Labs Laboratory Tests Test 04/25/19 12:02 04/25/19 17:02 04/25/19 20:58 04/26/19 07:39 Glucose (Fingerstick) 178 mg/dL (70-99) 209 mg/dL (70-99) 202 mg/dL (70-99) 294 mg/dL (70-99) Test 04/26/19 11:50 04/26/19 16:38 04/26/19 20:15 04/27/19 07:53 Glucose (Fingerstick) 245 mg/dL (70-99) 218 mg/dL (70-99) 187 mg/dL (70-99) 290 mg/dL (70-99) Test 04/27/19 08:50 White Blood Count 12.1 x10^3/uL (4.0-11.0) Red Blood Count 2.88 x10^6/uL (3.50-5.40) Hemoglobin 7.6 g/dL (12.0-15.5) Hematocrit 23.3 % (36.0-47.0) Mean Corpuscular Volume 81 fL (79-100) Mean Corpuscular Hemoglobin 26 pg (25-35) Mean Corpuscular Hemoglobin Concent 33 g/dL (31-37) Red Cell Distribution Width 18.1 % (11.5-14.5) Platelet Count 601 x10^3/uL (140-400) Neutrophils (%) (Auto) 71 % (31-73) Lymphocytes (%) (Auto) 15 % (24-48) Monocytes (%) (Auto) 10 % (0-9) Eosinophils (%) (Auto) 4 % (0-3) Basophils (%) (Auto) 1 % (0-3) Neutrophils # (Auto) 8.6 x10^3/uL (1.8-7.7) Lymphocytes # (Auto) 1.8 x10^3/uL (1.0-4.8) Monocytes # (Auto) 1.2 x10^3/uL (0.0-1.1) Eosinophils # (Auto) 0.4 x10^3/uL (0.0-0.7) Basophils # (Auto) 0.1 x10^3/uL (0.0-0.2) Ionized Calcium 1.23 mmol/L (1.13-1.32) Laboratory Tests Test 04/26/19 11:50 04/26/19 16:38 04/26/19 20:15 04/27/19 07:53 Glucose (Fingerstick) 245 mg/dL (70-99) 218 mg/dL (70-99) 187 mg/dL (70-99) 290 mg/dL (70-99) Test 04/27/19 08:50 White Blood Count 12.1 x10^3/uL (4.0-11.0) Red Blood Count 2.88 x10^6/uL (3.50-5.40) Hemoglobin 7.6 g/dL (12.0-15.5) Hematocrit 23.3 % (36.0-47.0) Mean Corpuscular Volume 81 fL (79-100) Mean Corpuscular Hemoglobin 26 pg (25-35) Mean Corpuscular Hemoglobin Concent 33 g/dL (31-37) Red Cell Distribution Width 18.1 % (11.5-14.5) Platelet Count 601 x10^3/uL (140-400) Neutrophils (%) (Auto) 71 % (31-73) Lymphocytes (%) (Auto) 15 % (24-48) Monocytes (%) (Auto) 10 % (0-9) Eosinophils (%) (Auto) 4 % (0-3) Basophils (%) (Auto) 1 % (0-3) Neutrophils # (Auto) 8.6 x10^3/uL (1.8-7.7) Lymphocytes # (Auto) 1.8 x10^3/uL (1.0-4.8) Monocytes # (Auto) 1.2 x10^3/uL (0.0-1.1) Eosinophils # (Auto) 0.4 x10^3/uL (0.0-0.7) Basophils # (Auto) 0.1 x10^3/uL (0.0-0.2) Ionized Calcium 1.23 mmol/L (1.13-1.32) Medications Current Medications Nitroglycerin (Nitrostat) 0.4 mg PRN Q5MIN PRN SL CP RATING > 1/10; Start 04/24/19 at 17:45 Morphine Sulfate (Morphine Sulfate) 4 mg PRN Q15MIN PRN IV/SQ PAIN GREATER THAN 3/10 Last administered on 04/24/19at 19:34; Start 04/24/19 at 17:45; Stop 04/24/19 at 20:21; Status DC Sodium Chloride 1,000 ml @ 1,000 mls/hr 1X ONCE IV Last administered on 04/24/19at 18:26; Start 04/24/19 at 18:00; Stop 04/24/19 at 18:59; Status DC Ondansetron HCl (Zofran) 4 mg 1X ONCE IVP Last administered on 04/24/19at 18:26; Start 04/24/19 at 18:00; Stop 04/24/19 at 18:01; Status DC Famotidine (Pepcid Vial) 20 mg 1X ONCE IVP Last administered on 04/24/19 18:27; Start 04/24/19 at 18:00; Stop 04/24/19 at 18:01; Status DC Morphine Sulfate (Morphine Sulfate) 4 mg PRN Q2HR PRN IV PAIN Last administered on 04/27/19 04:33; Start 04/24/19 at 20:00 Insulin Human Lispro (HumaLOG) 0-5 UNITS TIDWMEALS SQ Last administered on 04/26 09:33; Start 04/25/19 at 08:00 Dextrose (Dextrose 50%-Water Syringe) 12.5 gm PRN Q15MIN PRN IV SEE COMMENTS; Start 04/24/19 at 20:00 Aspirin (Children'S Aspirin) 81 mg DAILYWBKFT PO Last administered on 04/27/19 09:27; Start 04/25/19 at 08:00 Atorvastatin Calcium (Lipitor) 10 mg HS PO Last administered on 04/26/19 20:27; Start 04/25/19 at 21:00 Carvedilol (Coreg) 12.5 mg BIDWMEALS PO Last administered on 04/27/19 09:27; Start 04/25/19 at 08:00 Clopidogrel Bisulfate (Plavix) 75 mg DAILYWBKFT PO Last administered on 04/27/19 09:26; Start 04/25/19 at 08:00 Ferrous Sulfate (Feosol) 325 mg DAILY PO Last administered on 04/27/19 09:27; Start 04/25/19 at 09:00 Fluticasone Propionate (Flonase) 2 spray DAILY NS Last administered on 04/26/19 07:44; Start 04/25/19 at 09:00 Pantoprazole Sodium (Protonix) 40 mg DAILYAC PO Last administered on 04/27/19 09:26; Start 04/25/19 at 07:30 Ondansetron HCl (Zofran) 4 mg PRN Q4HRS PRN IV NAUSEA/VOMITING; Start 04/24/19 at 22:45 Hydralazine HCl (Apresoline Inj) 10 mg PRN Q4HRS PRN IVP ELEVATED BP, SEE COMMENTS Last administered on 04/25/19at 22:50; Start 04/24/19 at 22:45 Insulin Glargine (Lantus Syringe) 8 unit QHS SQ Last administered on 04/26/19at 20:30; Start 04/24/19 at 23:15 Acetaminophen (Tylenol) 650 mg PRN Q6HRS PRN PO MILD PAIN / TEMP Last administered on 04/27/19at 09:31; Start 04/25/19 at 22:45 Active Scripts Active Humalog (Insulin Lispro) 100 Unit/1 Ml Insuln.pen 0 Units SQ TIDWMEALS 28 Days Lasix (Furosemide) 20 Mg Tablet 1 Tab PO DAILY 5 Days Glipizide 5 Mg Tablet 1 Tab PO BID Januvia (Sitagliptin Phosphate) 50 Mg Tablet 1 Tab PO DAILY Pantoprazole Sodium (Pantoprazole Sodium) 40 Mg Tablet.dr 40 Mg PO DAILYAC Atorvastatin Calcium 10 Mg Tablet 1 Tab PO DAILY Naproxen 500 Mg Tablet.dr 1 Tab PO BID Fluticasone Propionate Nasal [place] (Fluticasone Propionate) 16 Gm [place].susp 2 [place] NS DAILY Coreg (Carvedilol) 12.5 Mg Tablet 12.5 Mg PO BIDWMEALS Clopidogrel (Clopidogrel Bisulfate) 75 Mg Tablet 75 Mg PO DAILYWBKFT Reported Metformin ER Gastric (Metformin HCl) 500 Mg [id number] 750 Mg PO DAILY Iron Supplement (Ferrous Sulfate) 325 Mg Tablet 1 Tab PO DAILY Aspirin 81 Mg Tab.chew 1 Tab PO DAILY Vitals/I & O Vital Sign - Last 24 Hours 04/26/19 04/26/19 04/26/19 04/26/19 13:45 15:00 16:10 16:10 Temp 97.4 97.4 Pulse 100 100 Resp 22 20 20 B/P (MAP) 134/85 (101) 134/85 Pulse Ox 90 92 92 O2 Delivery Room Air Room Air Room Air 04/26/19 04/26/19 04/26/19 04/26/19 16:40 19:00 19:05 20:27 Pulse 103 Resp 20 24 18 B/P (MAP) 148/85 (106) Pulse Ox 92 94 O2 Delivery Room Air Room Air Room Air Room Air 04/26/19 04/26/19 04/27/19 04/27/19 20:55 22:43 00:29 00:50 Temp 99.2 99.2 Pulse 106 Resp 17 25 16 16 B/P (MAP) 136/79 (98) Pulse Ox 92 O2 Delivery Room Air Room Air Room Air Room Air 04/27/19 04/27/19 04/27/19 04/27/19 03:00 04:33 05:00 07:42 Temp 99.0 98.3 99.0 98.3 Pulse 101 98 Resp 20 19 17 20 B/P (MAP) 150/86 (107) 138/85 (102) Pulse Ox 93 92 O2 Delivery Room Air Room Air Room Air Room Air 04/27/19 09:27 Pulse 98 B/P (MAP) 138/85 Intake and Output 04/26/19 04/26/19 04/27/19 15:00 23:00 07:00 Intake Total 150 ml 100 ml 1302 ml Balance 150 ml 100 ml 1302 ml PRATEEK GIVENS MD Apr 27, 2019 11:12
[2019-04-27 15:00] VITALS: BP 138/77
--- NOTE | 2019-04-27 15:11 | RAD ---
ACUTE ABDOMEN SERIES History: Pneumoperitoneum. Dyspnea Technique: Supine and upright views the abdomen. Comparison: April 24, 2019 Findings: Right lower lobe masslike consolidation, unchanged. Decreased pneumoperitoneum. Gastrostomy tube noted. Minimal small bowel gas. No air-fluid levels. Contrast noted within the proximal colon and rectum. Nonobstructed bowel gas pattern. Impression: 1. Decreased pneumoperitoneum. 2. Right lower lung masslike consolidation, similar compared to prior. Recommend continued follow-up. 3. Moderate proximal colonic stool. Electronically signed by: Mitchell Chew DO (04/27/2019 3:08 PM) [id number]
[2019-04-27 19:02] VITALS: BP 137/76
[2019-04-27] MEDS: ATORVASTATIN CALCIUM 10 MG TABLET. PO SCH (20:46)
[2019-04-27] MEDS: INSULIN GLARGINE SYRINGE. SQ SCH (20:59)
[2019-04-27 23:05] VITALS: BP 140/71
[2019-04-28 03:01] VITALS: BP 136/64
[2019-04-28] MEDS: MORPHINE SULFATE 4 MG/ML VIAL. IV PRN ×4 (03:31→20:29)
[2019-04-28 07:00] VITALS: BP 155/83
[2019-04-28] MEDS: CLOPIDOGREL BISULFATE 75 MG TABLET PO SCH (07:52)
[2019-04-28] MEDS: ASPIRIN CHEWABLE 81 MG TABLET. PO SCH (07:52)
[2019-04-28] MEDS: CARVEDILOL 12.5 MG TABLET. PO SCH ×2 (07:52→17:47)
[2019-04-28] MEDS: FERROUS SULFATE 325 MG TABLET. PO SCH (07:52)
[2019-04-28] MEDS: PANTOPRAZOLE 40 MG TABLET.DR. PO SCH (07:52)
[2019-04-28] MEDS: FLUTICASONE 50MCG/NASAL SPRAY 16GM BOTTLE. NS SCH (07:52)
[2019-04-28] MEDS: INSULIN LISPRO 300 UNITS/3 ML VIAL. SQ SCH ×3 (07:55→17:48)
--- NOTE | 2019-04-28 08:57 | NUR ---
ROC[facility] following. Discussed with RN, insurance still pending for acute rehab. [facility] has not heard anything this morning. ROC[facility]O to fax updates today. LISSETTE notified. Addendum: 04/28/19 at 1604 by GERTRUDE ALFORD Insurance denied for pt to go to acute rehab. Peer to peer available - notified case management. ROC[facility]O will continue to follow. LISSETTE notified.
[2019-04-28 11:00] VITALS: BP 138/84
--- NOTE | 2019-04-28 14:22 | PDOC ---
PROGRESS NOTES Chief Complaint Chief Complaint DM2 with hyperglycemia - will place back on insulin regimen. Glucophage XR is not to be crushed. Riomet liquid would be preferred Failure to thrive Chronic obstructive pulmonary disease - will cont nebs prn Tobacco dependent - not currently smoking now Coronary artery disease - s/p stenting x3, cont cadiac meds Expressive aphasia - with dysphagia - [employer] to see. Cont PEG feeds Essential hypertension - cont meds History of cerebrovascular accident with right-sided weakness - PT and OT for rehab. she needs placement, unable to care for herself and now there is no one to care for her at home Dyslipidemia - cont statin FEN - PEG feeds 40cc/hr glucerna + 100ml q6hr free water bolus PPX - lovenox FULL CODE Dispo - failed home with home health. Case management have sent referrals for SNF placement awaiting for bed History of Present Illness History of Present Illness Patient continues to be tearful and upset consult Neuro for MS treatment will need placement, acute rehab s/p CVA Patient still complaining of chest discomfort she had evidence of pneumo peritoneum in her abdominal series upon admission. Vitals Vitals Vital Signs Date Time Temp Pulse Resp B/P (MAP) Pulse Ox O2 Delivery O2 Flow Rate FiO2 04/28/19 11:00 98.8 96 18 138/84 (102) 93 Room Air 98.8 Physical Exam General: Alert, Cooperative, mild distress Heart: No murmurs Lungs: Clear Abdomen: Normal bowel sounds, Soft, No tenderness, No hepatosplenomegaly, Other (PEG site clean dry) Extremities: No clubbing, No cyanosis, No edema, Normal pulses, No tenderness/swelling Skin: No rashes, No breakdown, No significant lesion Labs LABS Laboratory Tests Test 04/27/19 16:29 04/27/19 20:50 04/28/19 07:20 04/28/19 11:27 Glucose (Fingerstick) 181 mg/dL (70-99) 182 mg/dL (70-99) 313 mg/dL (70-99) 218 mg/dL (70-99) Assessment and Plan Assessmemt and Plan Problems Medical Problems: (1) Hyperglycemia Status: Acute Comment Review of Relevant I have reviewed the following items cecilia (where applicable) has been applied. Labs Laboratory Tests Test 04/26/19 16:38 04/26/19 20:15 04/27/19 07:53 04/27/19 08:50 Glucose (Fingerstick) 218 mg/dL (70-99) 187 mg/dL (70-99) 290 mg/dL (70-99) White Blood Count 12.1 x10^3/uL (4.0-11.0) Red Blood Count 2.88 x10^6/uL (3.50-5.40) Hemoglobin 7.6 g/dL (12.0-15.5) Hematocrit 23.3 % (36.0-47.0) Mean Corpuscular Volume 81 fL (79-100) Mean Corpuscular Hemoglobin 26 pg (25-35) Mean Corpuscular Hemoglobin Concent 33 g/dL (31-37) Red Cell Distribution Width 18.1 % (11.5-14.5) Platelet Count 601 x10^3/uL (140-400) Neutrophils (%) (Auto) 71 % (31-73) Lymphocytes (%) (Auto) 15 % (24-48) Monocytes (%) (Auto) 10 % (0-9) Eosinophils (%) (Auto) 4 % (0-3) Basophils (%) (Auto) 1 % (0-3) Neutrophils # (Auto) 8.6 x10^3/uL (1.8-7.7) Lymphocytes # (Auto) 1.8 x10^3/uL (1.0-4.8) Monocytes # (Auto) 1.2 x10^3/uL (0.0-1.1) Eosinophils # (Auto) 0.4 x10^3/uL (0.0-0.7) Basophils # (Auto) 0.1 x10^3/uL (0.0-0.2) Ionized Calcium 1.23 mmol/L (1.13-1.32) Test 04/27/19 12:30 04/27/19 16:29 04/27/19 20:50 04/28/19 07:20 Glucose (Fingerstick) 253 mg/dL (70-99) 181 mg/dL (70-99) 182 mg/dL (70-99) 313 mg/dL (70-99) Test 04/28/19 11:27 Glucose (Fingerstick) 218 mg/dL (70-99) Laboratory Tests Test 04/27/19 16:29 04/27/19 20:50 04/28/19 07:20 04/28/19 11:27 Glucose (Fingerstick) 181 mg/dL (70-99) 182 mg/dL (70-99) 313 mg/dL (70-99) 218 mg/dL (70-99) Medications Current Medications Nitroglycerin (Nitrostat) 0.4 mg PRN Q5MIN PRN SL CP RATING > 1/10; Start 04/24/19 at 17:45 Morphine Sulfate (Morphine Sulfate) 4 mg PRN Q15MIN PRN IV/SQ PAIN GREATER THAN 3/10 Last administered on 04/24/19at 19:34; Start 04/24/19 at 17:45; Stop 04/24/19 at 20:21; Status DC Sodium Chloride 1,000 ml @ 1,000 mls/hr 1X ONCE IV Last administered on 04/24/19at 18:26; Start 04/24/19 at 18:00; Stop 04/24/19 at 18:59; Status DC Ondansetron HCl (Zofran) 4 mg 1X ONCE IVP Last administered on 04/24/19at 18:26; Start 04/24/19 at 18:00; Stop 04/24/19 at 18:01; Status DC Famotidine (Pepcid Vial) 20 mg 1X ONCE IVP Last administered on 04/24/19at 18:27; Start 04/24/19 at 18:00; Stop 04/24/19 at 18:01; Status DC Morphine Sulfate (Morphine Sulfate) 4 mg PRN Q2HR PRN IV PAIN Last administered on 04/28/19at 10:06; Start 04/24/19 at 20:00 Insulin Human Lispro (HumaLOG) 0-5 UNITS TIDWMEALS SQ Last administered on 04/28/19at 07:55; Start 04/25/19 at 08:00 Dextrose (Dextrose 50%-Water Syringe) 12.5 gm PRN Q15MIN PRN IV SEE COMMENTS; Start 04/24/19 at 20:00 Aspirin (Children'S Aspirin) 81 mg DAILYWBKFT PO Last administered on 04/28/19at 07:52; Start 04/25/19 at 08:00 Atorvastatin Calcium (Lipitor) 10 mg HS PO Last administered on 04/27/19 20:46; Start 04/25/19 at 21:00 Carvedilol (Coreg) 12.5 mg BIDWMEALS PO Last administered on 04/28/19 07:52; Start 04/25/19 at 08:00 Clopidogrel Bisulfate (Plavix) 75 mg DAILYWBKFT PO Last administered on 04/28/19 07:52; Start 04/25/19 at 08:00 Ferrous Sulfate (Feosol) 325 mg DAILY PO Last administered on 04/28/19 07:52; Start 04/25/19 at 09:00 Fluticasone Propionate (Flonase) 2 spray DAILY NS Last administered on 04/28/19 07:52; Start 04/25/19 at 09:00 Pantoprazole Sodium (Protonix) 40 mg DAILYAC PO Last administered on 04/28/19 07:52; Start 04/25/19 at 07:30 Ondansetron HCl (Zofran) 4 mg PRN Q4HRS PRN IV NAUSEA/VOMITING; Start 04/24/19 at 22:45 Hydralazine HCl (Apresoline Inj) 10 mg PRN Q4HRS PRN IVP ELEVATED BP, SEE COMMENTS Last administered on 04/25/19 22:50; Start 04/24/19 at 22:45 Insulin Glargine (Lantus Syringe) 8 unit QHS SQ Last administered on 04/27/19 20:59; Start 04/24/19 at 23:15 Acetaminophen (Tylenol) 650 mg PRN Q6HRS PRN PO MILD PAIN / TEMP Last administered on 04/27/19 09:31; Start 04/25/19 at 22:45 Active Scripts Active Humalog (Insulin Lispro) 100 Unit/1 Ml Insuln.pen 0 Units SQ TIDWMEALS 28 Days Lasix (Furosemide) 20 Mg Tablet 1 Tab PO DAILY 5 Days Glipizide 5 Mg Tablet 1 Tab PO BID Januvia (Sitagliptin Phosphate) 50 Mg Tablet 1 Tab PO DAILY Pantoprazole Sodium (Pantoprazole Sodium) 40 Mg Tablet.dr 40 Mg PO DAILYAC Atorvastatin Calcium 10 Mg Tablet 1 Tab PO DAILY Naproxen 500 Mg Tablet.dr 1 Tab PO BID Fluticasone Propionate Nasal [place] (Fluticasone Propionate) 16 Gm [place].susp 2 [place] NS DAILY Coreg (Carvedilol) 12.5 Mg Tablet 12.5 Mg PO BIDWMEALS Clopidogrel (Clopidogrel Bisulfate) 75 Mg Tablet 75 Mg PO DAILYWBKFT Reported Metformin ER Gastric (Metformin HCl) 500 Mg [id number] 750 Mg PO DAILY Iron Supplement (Ferrous Sulfate) 325 Mg Tablet 1 Tab PO DAILY Aspirin 81 Mg Tab.chew 1 Tab PO DAILY Vitals/I & O Vital Sign - Last 24 Hours 04/27/19 04/27/19 04/27/19 04/27/19 14:47 15:00 17:59 18:00 Temp 97.6 97.6 Pulse 87 87 Resp 18 20 B/P (MAP) 138/77 (97) 138/77 Pulse Ox 96 96 96 O2 Delivery Room Air Room Air Room Air 04/27/19 04/27/19 04/27/19 04/27/19 18:29 19:02 20:00 20:52 Temp 97.9 97.9 Pulse 92 Resp 20 B/P (MAP) 137/76 (96) Pulse Ox 94 91 O2 Delivery Room Air Room Air Room Air Room Air 04/27/19 04/27/19 04/28/19 04/28/19 21:22 23:05 03:01 03:31 Temp 97.2 97.6 97.2 97.6 Pulse 90 88 Resp 18 B/P (MAP) 140/71 (94) 136/64 (88) Pulse Ox 91 95 96 96 O2 Delivery Room Air Room Air Room Air Room Air 04/28/19 04/28/19 04/28/19 04/28/19 04:01 07:00 07:52 10:06 Temp 98.6 98.6 Pulse 99 99 Resp 24 B/P (MAP) 155/83 (107) 155/83 Pulse Ox 96 95 O2 Delivery Room Air Room Air Room Air 04/28/19 04/28/19 10:36 11:00 Temp 98.8 98.8 Pulse 96 Resp 18 18 B/P (MAP) 138/84 (102) Pulse Ox 93 O2 Delivery Room Air Room Air Intake and Output 04/27/19 04/27/19 04/28/19 15:00 23:00 07:00 Intake Total 100 ml 920 ml 700 ml Balance 100 ml 920 ml 700 ml MYRNA ESPINOZA MD Apr 28, 2019 14:22
[2019-04-28 15:00] VITALS: BP 145/92
--- NOTE | 2019-04-28 16:13 | SNU/HH DC ---
DISCHARGE ORDERS DISCHARGE INFORMATION: DISCHARGE DATE: Apr 28, 2019 FINAL DIAGNOSIS Problems Medical Problems: (1) Hyperglycemia Status: Acute CONDITION ON DISCHARGE: Stable CODE STATUS: Code Status: Full ASSISTED: SNF STAY <30 DAYS: Yes POST DISCHARGE ORDERS: ACTIVITY ORDERS: Activity as tolerated WEIGHT BEARING STATUS: As tolerated BATHING ORDERS: No Tub Bath until see DIET AFTER DISCHARGE: NPO WOUND/INCISION CARE: No wound care needed OTHER ORDERS: tube feeds 45 mls/hr, glucerna 1.2 or similar CHECKS AFTER DISCHARGE: CHECKS AFTER DISCHARGE: Check blood press - daily, Check blood sugar, ac/hs TREATMENT/EQUIPMENT ORDERS: ADAPTIVE EQUIPMENT NEEDED: None INFUSION EQUIPMENT NEEDED: Feeding Tube Physical Therapy For: Evalulation/Treatment Occupational Therapy For: Evaluation/Treatment Speech Language Pathology For: Evaluation/Treatment DISCHARGE MEDICATIONS: Home Meds Active Scripts Insulin Lispro (HUMALOG) 100 Unit/1 Ml Insuln.pen, 0 UNITS SQ TIDWMEALS for glucose for 28 Days, #2 EACH Prov:JUSTIN GE MD 02/17/19 Furosemide (LASIX) 20 Mg Tablet, 1 TAB PO DAILY for 5 Days, #5 TAB 0 Refills Prov:REX GARZA Jr., DO 12/31/18 Glipizide (GLIPIZIDE) 5 Mg Tablet, 1 TAB PO BID, #30 TAB 3 Refills Prov:MALENA CID APRN 09/18/18 Sitagliptin Phosphate (JANUVIA) 50 Mg Tablet, 1 TAB PO DAILY, #30 TAB 0 Refills Prov:MALENA CID APRN 09/18/18 Pantoprazole Sodium (PANTOPRAZOLE SODIUM ) 40 Mg Tablet., 40 MG PO DAILYAC for GERD, #30 TAB Prov:MALENA CID APRN 09/18/18 Atorvastatin Calcium (ATORVASTATIN CALCIUM) 10 Mg Tablet, 1 TAB PO DAILY, #30 TAB 0 Refills Prov:MALENA CID APRN 09/18/18 Naproxen (NAPROXEN) 500 Mg Tablet., 1 TAB PO BID, #60 TAB 2 Refills Prov:MALENA CID APRN 03/05/16 Fluticasone Propionate (FLUTICASONE PROPIONATE NASAL SPRAY) 16 Gm [place].susp, 2 SPRAY NS DAILY, #1 BOTTLE Prov:EULA KENNEDY MD 02/20/16 Carvedilol (COREG ) 12.5 Mg Tablet, 12.5 MG PO BIDWMEALS, #60 TAB 2 Refills Prov:DAVID CONNOLLY MD 08/26/15 Clopidogrel Bisulfate (CLOPIDOGREL) 75 Mg Tablet, 75 MG PO DAILYWBKFT, #30 TAB 2 Refills Prov:DAVID CONNOLLY MD 08/26/15 Reported Medications Metformin HCl (Metformin ER Gastric) 500 Mg [id number], 750 MG PO DAILY for Diabetes Mellitis, TAB.SR 02/15/19 Ferrous Sulfate (IRON SUPPLEMENT) 325 Mg Tablet, 1 TAB PO DAILY, #30 TAB 10 Refills 10/04/13 Aspirin (ASPIRIN) 81 Mg Tab.chew, 1 TAB PO DAILY, #30 TAB 3 Refills 10/04/13 Discontinued Scripts Hydralazine Hcl (HYDRALAZINE HCL) 25 Mg Tablet, 1 TAB PO BID for htn for 30 Days, #60 TAB Prov:JASMIN CARTER MD 03/22/19 MYRNA ESPINOZA MD Apr 28, 2019 16:13
--- NOTE | 2019-04-28 17:00 | PDOC2 ---
NEUROLOGY CONSULT Date of Admission Date of Admission DATE: 04/28/19 TIME: 16:53 Reason for Consult Reason for Consult: MS. CVA? Dysartheria. PBP manifestations. Frequent crying spells. Right anthony and right cerebellar infarcts or demyelinating changes in the past. Hyperglycemia. DM. HTN. HLD. Smoking. Vit D deficiency, Hx. Dementia features. Abnormal brain MRI. Obesity. RECOMMENDATIONS/PLAN: MRI w/wo contrast. Continue ASA 325 mg daily. Continue Lipitor HS. Treatment for MS as outpatient, hospital does not carry immuno-modulator. OT/PT. FU with Neurology after recovery of pneumonia.. Discussed with radiologist Dr. Lawrence about MRI findings in 01/2019, more t owards pontine findings as MS than CVA, but no enhanced lesions this time. More lesions seen than that of the previous MRI. HISTORY OF THE PRESENT ILLNESS: The patient is a 43-year-old right-handed AA female with complicated medical and neurological diseases was admitted this time presenting via EMS with complaints of the bilateral lower extremity weakness. She had dysartheria. PBP manifestations, frequent crying spells and LE weakness in the past and she was evaluated in 01/2019 and was thought to have MS. She was instructed to be followed at Neurology Clinic, but she never returned. PAST MEDICAL HISTORY: Noncompliance. Polysubstance abuse. Multiple strokes? MS? Diabetes. Hypertension. Anemia. PAST SURGICAL HISTORY: Coronary artery disease, status post stents. . ALLERGIES: SULFA AND LISINOPRIL. FAMILY HISTORY: Coronary artery disease. SOCIAL HISTORY: She lives with her daughter. The patient does not work. She smokes tobacco and drinks alcohol. MEDICATIONS: Refer to [facility] REVIEW OF SYSTEMS: Constitutional: No malnutrition, weight loss, cachexia. Head: No recent traumatic brain or head injury. Skin: No edema, or rash. Ear: No infection. Eyes: No vision loss, or diplopia. Nose: No bleeding or purulent discharges. Hearing: No hearing decrease. Neck: No injury. Breast: No history of cancer, masses, or discharges. Cardiac: HTN, HLD Pulmonary: No COPD. GI: No GI Ulcer, GI bleeding, GERD Urinary/genital: UTI. Endocrine: Diabetes Mellitus. Skeletomuscular: No muscular atrophy. Neurological: see HP. Psychiatric: Substances use/abuse. Otherwise, not [id number] review of systems. PHYSICAL EXAMINATION: General appearance in chronic on subacute distress. HEENT: Normocephalic and nontraumatic. Eyes, nose, ears, and throat are unremarkable. Hearing decrease. Neck is supple. No lymphadenopathy. No Crepitus. Cardiovascular: S1, S2, regular rate and rhythm. Pulmonary: Clear to auscultation bilaterally. Abdomen: Bowel sounds are positive. Abdomen is soft, nontender, and nondistended. Extremities: No rash, lesions, or edema. No restriction of range of motion NEUROLOGICAL EXAMINATION: Awake. Dysarthria. Crying spells from time to time. Not oriented to time, but knew place and person. PERRL. EOMI. CN: no focal findings. Muscle tone: increased in UE and LE Muscle strength: 4+ DTR: 3 Plantar reflex: Flexor response bilaterally Gait: not examined in bed. Sensory exam: no abnormal findings. No acute cerebellar signs elicited. F-T-N test fine. Current Medications Current Medications Current Medications Nitroglycerin (Nitrostat) 0.4 mg PRN Q5MIN PRN SL CP RATING > 1/10; Start 04/24/19 at 17:45 Morphine Sulfate (Morphine Sulfate) 4 mg PRN Q15MIN PRN IV/SQ PAIN GREATER THAN 3/10 Last administered on 04/24/19 19:34; Start 04/24/19 at 17:45; Stop 04/24/19 at 20:21; Status DC Sodium Chloride 1,000 ml @ 1,000 mls/hr 1X ONCE IV Last administered on 04/24/19 18:26; Start 04/24/19 at 18:00; Stop 04/24/19 at 18:59; Status DC Ondansetron HCl (Zofran) 4 mg 1X ONCE IVP Last administered on 04/24/19 18:26; Start 04/24/19 at 18:00; Stop 04/24/19 at 18:01; Status DC Famotidine (Pepcid Vial) 20 mg 1X ONCE IVP Last administered on 04/24/19 18:27; Start 04/24/19 at 18:00; Stop 04/24/19 at 18:01; Status DC Morphine Sulfate (Morphine Sulfate) 4 mg PRN Q2HR PRN IV PAIN Last administered on 04/28/19at 15:39; Start 04/24/19 at 20:00 Insulin Human Lispro (HumaLOG) 0-5 UNITS TIDWMEALS SQ Last administered on 04/28/19 14:16; Start 04/25/19 at 08:00 Dextrose (Dextrose 50%-Water Syringe) 12.5 gm PRN Q15MIN PRN IV SEE COMMENTS; Start 04/24/19 at 20:00 Aspirin (Children'S Aspirin) 81 mg DAILYWBKFT PO Last administered on 04/28/19 07:52; Start 04/25/19 at 08:00 Atorvastatin Calcium (Lipitor) 10 mg HS PO Last administered on 04/27/19 20:46; Start 04/25/19 at 21:00 Carvedilol (Coreg) 12.5 mg BIDWMEALS PO Last administered on 04/28/19 07:52; Start 04/25/19 at 08:00 Clopidogrel Bisulfate (Plavix) 75 mg DAILYWBKFT PO Last administered on 04/28/19 07:52; Start 04/25/19 at 08:00 Ferrous Sulfate (Feosol) 325 mg DAILY PO Last administered on 04/28/19 07:52; Start 04/25/19 at 09:00 Fluticasone Propionate (Flonase) 2 spray DAILY NS Last administered on 04/28/19 07:52; Start 04/25/19 at 09:00 Pantoprazole Sodium (Protonix) 40 mg DAILYAC PO Last administered on 04/28/19 07:52; Start 04/25/19 at 07:30 Ondansetron HCl (Zofran) 4 mg PRN Q4HRS PRN IV NAUSEA/VOMITING; Start 04/24/19 at 22:45 Hydralazine HCl (Apresoline Inj) 10 mg PRN Q4HRS PRN IVP ELEVATED BP, SEE COMMENTS Last administered on 04/25/19 22:50; Start 04/24/19 at 22:45 Insulin Glargine (Lantus Syringe) 8 unit QHS SQ Last administered on 04/27/19 20:59; Start 04/24/19 at 23:15 Acetaminophen (Tylenol) 650 mg PRN Q6HRS PRN PO MILD PAIN / TEMP Last administered on 04/27/19 09:31; Start 04/25/19 at 22:45 Active Scripts Active Humalog (Insulin Lispro) 100 Unit/1 Ml Insuln.pen 0 Units SQ TIDWMEALS 28 Days Lasix (Furosemide) 20 Mg Tablet 1 Tab PO DAILY 5 Days Glipizide 5 Mg Tablet 1 Tab PO BID Januvia (Sitagliptin Phosphate) 50 Mg Tablet 1 Tab PO DAILY Pantoprazole Sodium (Pantoprazole Sodium) 40 Mg Tablet.dr 40 Mg PO DAILYAC Atorvastatin Calcium 10 Mg Tablet 1 Tab PO DAILY Naproxen 500 Mg Tablet.dr 1 Tab PO BID Fluticasone Propionate Nasal [place] (Fluticasone Propionate) 16 Gm [place].susp 2 [place] NS DAILY Coreg (Carvedilol) 12.5 Mg Tablet 12.5 Mg PO BIDWMEALS Clopidogrel (Clopidogrel Bisulfate) 75 Mg Tablet 75 Mg PO DAILYWBKFT Reported Metformin ER Gastric (Metformin HCl) 500 Mg [id number] 750 Mg PO DAILY Iron Supplement (Ferrous Sulfate) 325 Mg Tablet 1 Tab PO DAILY Aspirin 81 Mg Tab.chew 1 Tab PO DAILY Allergies Allergies: Allergies Coded Allergies Type Severity Reaction Last Updated Verified Sulfa (Sulfonamide Antibiotics) Allergy Intermediate hives 04/21/19 Yes lisinopril Allergy Intermediate hives 04/21/19 Yes ROS Review of System The patient denies any associated fevers, chills, headache, ear pain, rhinorrh ea, sore throat, stiff neck, productive cough, chest pain, shortness of breath, back or flank pain, abdominal pain, nausea, vomiting, diarrhea, constipation, dysuria, rash, numbness, weakness, tingling, incontinence, difficulty ambulating, or diaphoresis. Physical Exam Physical Exam General: Well developed, well nourished, no acute distress, well appearing HEENT: Pupils equally round and reactive to light, EOMI, no discharge, normal conjunctiva Neck: Supple, no nuchal rigidity, no JVD, trachea midline, no tenderness Cardiac: RRR, no murmurs, no gallops, no rubs Chest/Lungs: CTAB, no wheeze, no rhonchi, no crackles Abdomen: soft, non-distended, no guarding, no peritoneal signs, non-tender Back: No tenderness Extremities: no edema, pulses intact, non-tender,capillary refill <3 sec bilateral upper and lower extremities, Neuro: Alert and oriented x 4, no focal deficits, normal speech Vitals Vitals: Vital Signs Date Time Temp Pulse Resp B/P (MAP) Pulse Ox O2 Delivery O2 Flow Rate FiO2 04/28/19 15:39 18 Room Air 04/28/19 15:00 98.3 92 145/92 (109) 95 98.3 Labs Labs Laboratory Tests Test 04/26/19 20:15 04/27/19 07:53 04/27/19 08:50 04/27/19 12:30 Glucose (Fingerstick) 187 mg/dL (70-99) 290 mg/dL (70-99) 253 mg/dL (70-99) White Blood Count 12.1 x10^3/uL (4.0-11.0) Red Blood Count 2.88 x10^6/uL (3.50-5.40) Hemoglobin 7.6 g/dL (12.0-15.5) Hematocrit 23.3 % (36.0-47.0) Mean Corpuscular Volume 81 fL (79-100) Mean Corpuscular Hemoglobin 26 pg (25-35) Mean Corpuscular Hemoglobin Concent 33 g/dL (31-37) Red Cell Distribution Width 18.1 % (11.5-14.5) Platelet Count 601 x10^3/uL (140-400) Neutrophils (%) (Auto) 71 % (31-73) Lymphocytes (%) (Auto) 15 % (24-48) Monocytes (%) (Auto) 10 % (0-9) Eosinophils (%) (Auto) 4 % (0-3) Basophils (%) (Auto) 1 % (0-3) Neutrophils # (Auto) 8.6 x10^3/uL (1.8-7.7) Lymphocytes # (Auto) 1.8 x10^3/uL (1.0-4.8) Monocytes # (Auto) 1.2 x10^3/uL (0.0-1.1) Eosinophils # (Auto) 0.4 x10^3/uL (0.0-0.7) Basophils # (Auto) 0.1 x10^3/uL (0.0-0.2) Ionized Calcium 1.23 mmol/L (1.13-1.32) Test 04/27/19 16:29 3/10/20 20:50 04/28/19 07:20 04/28/19 11:27 Glucose (Fingerstick) 181 mg/dL (70-99) 182 mg/dL (70-99) 313 mg/dL (70-99) 218 mg/dL (70-99) Laboratory Tests Test 04/27/19 20:50 04/28/19 07:20 04/28/19 11:27 Glucose (Fingerstick) 182 mg/dL (70-99) 313 mg/dL (70-99) 218 mg/dL (70-99) CELESTINE MATIAS MD Apr 28, 2019 17:00
[2019-04-28 19:00] VITALS: BP 141/89
[2019-04-28] MEDS: ATORVASTATIN CALCIUM 10 MG TABLET. PO SCH (21:44)
[2019-04-28] MEDS: INSULIN GLARGINE SYRINGE. SQ SCH (21:58)
[2019-04-28 22:45] VITALS: BP 143/84
[2019-04-28 23:31] LABS: INFLUENZA A PATIENT NEGATIVE (NEGATIVE); INFLUENZA B PATIENT NEGATIVE (NEGATIVE)
[2019-04-29] MEDS: MORPHINE SULFATE 4 MG/ML VIAL. IV PRN ×6 (00:37→15:26)
[2019-04-29 03:00] VITALS: BP 99/61
[2019-04-29 07:00] VITALS: BP 146/91
[2019-04-29] MEDS: PANTOPRAZOLE 40 MG TABLET.DR. PO SCH (08:41)
[2019-04-29] MEDS: FERROUS SULFATE 325 MG TABLET. PO SCH (08:41)
[2019-04-29] MEDS: ASPIRIN CHEWABLE 81 MG TABLET. PO SCH (08:42)
[2019-04-29] MEDS: CLOPIDOGREL BISULFATE 75 MG TABLET PO SCH (08:42)
[2019-04-29] MEDS: CARVEDILOL 12.5 MG TABLET. PO SCH ×2 (08:42→16:57)
[2019-04-29] MEDS: INSULIN LISPRO 300 UNITS/3 ML VIAL. SQ SCH ×3 (08:52→17:03)
[2019-04-29] MEDS: FLUTICASONE 50MCG/NASAL SPRAY 16GM BOTTLE. NS SCH (08:52)
--- NOTE | 2019-04-29 09:40 | NUR ---
[facility] following. Discussed with RN. farm planner, Jill faxing pt referral to some shelter facilities to attempt to get an acceptance as pt's insurance has advised they will pay for SNU, but not acute rehab. Awaiting acceptance decisions. farm planner and [facility] will continue to follow. Addendum: 04/29/19 at 1507 by GERTRUDE ALFORD farm planner faxed SNU referral to 3 facilities, all declined to take pt for SNU due to pts medicaid insurance. Dr. Madden did peer to peer to attempt to overturn acute rehab denial, however was unsuccessful. [facility] left voicemail for pt's daughter, Ángela ([phone]) to discuss residential care placement. [facility] will continue to follow.
[2019-04-29 11:00] VITALS: BP 164/105
--- NOTE | 2019-04-29 13:20 | PDOC ---
PROGRESS NOTES Chief Complaint Chief Complaint DM2 with hyperglycemia - will place back on insulin regimen. Glucophage XR is not to be crushed. Riomet liquid would be preferred Failure to thrive Chronic obstructive pulmonary disease - will cont nebs prn Tobacco dependent - not currently smoking now Coronary artery disease - s/p stenting x3, cont cadiac meds Expressive aphasia - with dysphagia - CENTER RECEPTIONIST to see. Cont PEG feeds Essential hypertension - cont meds History of cerebrovascular accident with right-sided weakness - PT and OT for rehab. she needs placement, unable to care for herself and now there is no one to care for her at home Dyslipidemia - cont statin FEN - PEG feeds 40cc/hr glucerna + 100ml q6hr free water bolus PPX - lovenox FULL CODE Dispo - failed home with home health. Case management have sent referrals for SNF placement awaiting for bed History of Present Illness History of Present Illness Patient much improved today she is no longer tearful no neurological deficits have been noted speech therapy has been consulted but according to nursing staff and aids she seems to have a selective aphasia. We will continue to monitor her status hopefully dismiss soon Vitals Vitals Vital Signs Date Time Temp Pulse Resp B/P (MAP) Pulse Ox O2 Delivery O2 Flow Rate FiO2 04/29/19 13:03 90 Room Air 04/29/19 11:00 98.5 94 18 164/105 (124) 98.5 Physical Exam General: Alert, Cooperative, mild distress Heart: No murmurs Lungs: Clear Abdomen: Normal bowel sounds, Soft, No tenderness, No hepatosplenomegaly, Other (PEG site clean dry) Extremities: No clubbing, No cyanosis, No edema, Normal pulses, No tenderness/swelling Skin: No rashes, No breakdown, No significant lesion Labs LABS Laboratory Tests Test 04/28/19 16:59 04/28/19 20:06 04/28/19 21:50 04/29/19 08:01 Glucose (Fingerstick) 265 mg/dL (70-99) 199 mg/dL (70-99) 335 mg/dL (70-99) Influenza Type A Antigen Negative (NEGATIVE) Influenza Type B Antigen Negative (NEGATIVE) Test 04/29/19 12:01 Glucose (Fingerstick) 233 mg/dL (70-99) Assessment and Plan Assessmemt and Plan Problems Medical Problems: (1) Hyperglycemia Status: Acute Comment Review of Relevant I have reviewed the following items cecilia (where applicable) has been applied. Labs Laboratory Tests Test 04/27/19 16:29 04/27/19 20:50 04/28/19 07:20 04/28/19 11:27 Glucose (Fingerstick) 181 mg/dL (70-99) 182 mg/dL (70-99) 313 mg/dL (70-99) 218 mg/dL (70-99) Test 04/28/19 16:59 04/28/19 20:06 04/28/19 21:50 04/29/19 08:01 Glucose (Fingerstick) 265 mg/dL (70-99) 199 mg/dL (70-99) 335 mg/dL (70-99) Influenza Type A Antigen Negative (NEGATIVE) Influenza Type B Antigen Negative (NEGATIVE) Test 04/29/19 12:01 Glucose (Fingerstick) 233 mg/dL (70-99) Laboratory Tests Test 04/28/19 16:59 04/28/19 20:06 04/28/19 21:50 04/29/19 08:01 Glucose (Fingerstick) 265 mg/dL (70-99) 199 mg/dL (70-99) 335 mg/dL (70-99) Influenza Type A Antigen Negative (NEGATIVE) Influenza Type B Antigen Negative (NEGATIVE) Test 04/29/19 12:01 Glucose (Fingerstick) 233 mg/dL (70-99) Medications Current Medications Nitroglycerin (Nitrostat) 0.4 mg PRN Q5MIN PRN SL CP RATING > 1/10; Start 04/24/19 at 17:45 Morphine Sulfate (Morphine Sulfate) 4 mg PRN Q15MIN PRN IV/SQ PAIN GREATER THAN 3/10 Last administered on 04/24/19at 19:34; Start 04/24/19 at 17:45; Stop 04/24/19 at 20:21; Status DC Sodium Chloride 1,000 ml @ 1,000 mls/hr 1X ONCE IV Last administered on 04/24/19at 18:26; Start 04/24/19 at 18:00; Stop 04/24/19 at 18:59; Status DC Ondansetron HCl (Zofran) 4 mg 1X ONCE IVP Last administered on 04/24/19at 18:26; Start 04/24/19 at 18:00; Stop 04/24/19 at 18:01; Status DC Famotidine (Pepcid Vial) 20 mg 1X ONCE IVP Last administered on 04/24/19 18:27; Start 04/24/19 at 18:00; Stop 04/24/19 at 18:01; Status DC Morphine Sulfate (Morphine Sulfate) 4 mg PRN Q2HR PRN IV PAIN Last administered on 04/29/19 12:13; Start 04/24/19 at 20:00 Insulin Human Lispro (HumaLOG) 0-5 UNITS TIDWMEALS SQ Last administered on 04/29/19 12:11; Start 04/25/19 at 08:00 Dextrose (Dextrose 50%-Water Syringe) 12.5 gm PRN Q15MIN PRN IV SEE COMMENTS; Start 04/24/19 at 20:00 Aspirin (Children'S Aspirin) 81 mg DAILYWBKFT PO Last administered on 04/29/19 08:42; Start 04/25/19 at 08:00 Atorvastatin Calcium (Lipitor) 10 mg HS PO Last administered on 04/28/19 21:44; Start 04/25/19 at 21:00 Carvedilol (Coreg) 12.5 mg BIDWMEALS PO Last administered on 04/29/19 08:42; Start 04/25/19 at 08:00 Clopidogrel Bisulfate (Plavix) 75 mg DAILYWBKFT PO Last administered on 04/29/19 08:42; Start 04/25/19 at 08:00 Ferrous Sulfate (Feosol) 325 mg DAILY PO Last administered on 04/29/19 08:41; Start 04/25/19 at 09:00 Fluticasone Propionate (Flonase) 2 spray DAILY NS Last administered on 04/28/19 07:52; Start 04/25/19 at 09:00 Pantoprazole Sodium (Protonix) 40 mg DAILYAC PO Last administered on 04/29/19 08:41; Start 04/25/19 at 07:30 Ondansetron HCl (Zofran) 4 mg PRN Q4HRS PRN IV NAUSEA/VOMITING; Start 04/24/19 at 22:45 Hydralazine HCl (Apresoline Inj) 10 mg PRN Q4HRS PRN IVP ELEVATED BP, SEE COMMENTS Last administered on 04/25/19at 22:50; Start 04/24/19 at 22:45 Insulin Glargine (Lantus Syringe) 8 unit QHS SQ Last administered on 04/28/19at 21:58; Start 04/24/19 at 23:15 Acetaminophen (Tylenol) 650 mg PRN Q6HRS PRN PO MILD PAIN / TEMP Last administered on 04/27/19at 09:31; Start 04/25/19 at 22:45 Active Scripts Active Humalog (Insulin Lispro) 100 Unit/1 Ml Insuln.pen 0 Units SQ TIDWMEALS 28 Days Lasix (Furosemide) 20 Mg Tablet 1 Tab PO DAILY 5 Days Glipizide 5 Mg Tablet 1 Tab PO BID Januvia (Sitagliptin Phosphate) 50 Mg Tablet 1 Tab PO DAILY Pantoprazole Sodium (Pantoprazole Sodium) 40 Mg Tablet.dr 40 Mg PO DAILYAC Atorvastatin Calcium 10 Mg Tablet 1 Tab PO DAILY Naproxen 500 Mg Tablet.dr 1 Tab PO BID Fluticasone Propionate Nasal [place] (Fluticasone Propionate) 16 Gm [place].susp 2 [place] NS DAILY Coreg (Carvedilol) 12.5 Mg Tablet 12.5 Mg PO BIDWMEALS Clopidogrel (Clopidogrel Bisulfate) 75 Mg Tablet 75 Mg PO DAILYWBKFT Reported Metformin ER Gastric (Metformin HCl) 500 Mg [id number] 750 Mg PO DAILY Iron Supplement (Ferrous Sulfate) 325 Mg Tablet 1 Tab PO DAILY Aspirin 81 Mg Tab.chew 1 Tab PO DAILY Vitals/I & O Vital Sign - Last 24 Hours 04/28/19 04/28/19 04/28/19 04/28/19 15:00 15:39 16:09 17:47 Temp 98.3 98.3 Pulse 92 92 Resp 18 18 16 B/P (MAP) 145/92 (109) 145/92 Pulse Ox 95 O2 Delivery Room Air Room Air Room Air 04/28/19 04/28/19 04/28/19 04/28/19 19:00 20:00 20:29 20:59 Temp 98.2 98.2 Pulse 92 Resp 22 B/P (MAP) 141/89 (106) Pulse Ox 96 96 96 O2 Delivery Room Air Room Air Room Air Room Air 04/28/19 04/29/19 04/29/19 04/29/19 22:45 00:37 02:46 03:00 Temp 98.7 98.1 98.7 98.1 Pulse 91 75 Resp 21 22 B/P (MAP) 143/84 (103) 99/61 (74) Pulse Ox 97 97 97 97 O2 Delivery Room Air Room Air Room Air Room Air 04/29/19 04/29/19 04/29/19 04/29/19 05:37 07:00 08:30 08:38 Temp 98.9 98.9 Pulse 93 Resp 17 B/P (MAP) 146/91 (109) Pulse Ox 97 94 94 O2 Delivery Room Air Room Air Room Air Room Air 04/29/19 04/29/19 04/29/19 04/29/19 08:42 09:17 11:00 12:13 Temp 98.5 98.5 Pulse 93 94 Resp 18 B/P (MAP) 146/91 164/105 (124) Pulse Ox 94 90 O2 Delivery Room Air Room Air Room Air 04/29/19 13:03 Pulse Ox 90 O2 Delivery Room Air Intake and Output 04/28/19 04/28/19 04/29/19 15:00 23:00 07:00 Intake Total 100 ml 100 ml Output Total 0 ml Balance 100 ml 100 ml PRATEEK GIVENS MD Apr 29, 2019 13:20
--- NOTE | 2019-04-29 14:18 | PDOC ---
PROGRESS NOTES Assessment Assessment MS. Dysartheria. PBP manifestations. Frequent crying spells. Right anthony and right cerebellar infarcts or demyelinating changes in the past. Hyperglycemia. DM. HTN. HLD. Smoking. Vit D deficiency, Hx. Dementia features. Abnormal brain MRI. Obesity. RECOMMENDATIONS/PLAN: MRI w/wo contrast. Continue ASA 325 mg daily. Continue Lipitor HS. Treatment for MS as outpatient, hospital does not carry immuno-modulator. OT/PT. FU with Neurology after recovery of pneumonia.. Discussed with her daughter at bedside oj 04/29/19. Discussed with radiologist Dr. Lawrence about MRI findings in 01/2019, more towards pontine findings as MS than CVA, but no enhanced lesions this time. More lesions seen than that of the previous MRI. HISTORY OF THE PRESENT ILLNESS: The patient is a 43-year-old right-handed AA female with complicated medical and neurological diseases was admitted this time presenting via EMS with complaints of the bilateral lower extremity weakness. She had dysartheria. PBP manifestations, frequent crying spells and LE weakness in the past and she was evaluated in 01/2019 and was thought to have MS. She was instructed to be followed at [facility]rology [facility], but she never returned. PAST MEDICAL HISTORY: Noncompliance. Polysubstance abuse. Multiple strokes? MS? Diabetes. Hypertension. Anemia. PAST SURGICAL HISTORY: Coronary artery disease, status post stents. . ALLERGIES: SULFA AND LISINOPRIL. FAMILY HISTORY: Coronary artery disease. SOCIAL HISTORY: She lives with her daughter. The patient does not work. She smokes tobacco and drinks alcohol. MEDICATIONS: Refer to MAR REVIEW OF SYSTEMS: Constitutional: No malnutrition, weight loss, cachexia. Head: No recent traumatic brain or head injury. Skin: No edema, or rash. Ear: No infection. Eyes: No vision loss, or diplopia. Nose: No bleeding or purulent discharges. Hearing: No hearing decrease. Neck: No injury. Breast: No history of cancer, masses, or discharges. Cardiac: HTN, HLD Pulmonary: No COPD. GI: No GI Ulcer, GI bleeding, GERD Urinary/genital: UTI. Endocrine: Diabetes Mellitus. Skeletomuscular: No muscular atrophy. Neurological: see HP. Psychiatric: Substances use/abuse. Otherwise, not [id number] review of systems. PHYSICAL EXAMINATION: General appearance in chronic on subacute distress. HEENT: Normocephalic and nontraumatic. Eyes, nose, ears, and throat are unremarkable. Hearing decrease. Neck is supple. No lymphadenopathy. No Crepitus. Cardiovascular: S1, S2, regular rate and rhythm. Pulmonary: Clear to auscultation bilaterally. Abdomen: Bowel sounds are positive. Abdomen is soft, nontender, and nondistended. Extremities: No rash, lesions, or edema. No restriction of range of motion NEUROLOGICAL EXAMINATION: Awake. Dysarthria. Crying spells from time to time. Not oriented to time, but knew place and person. PERRL. EOMI. CN: no focal findings. Muscle tone: increased in UE and LE Muscle strength: 4+ DTR: 3 Plantar reflex: Flexor response bilaterally Gait: not examined in chair. Sensory exam: no abnormal findings. No acute cerebellar signs elicited. F-T-N test fine. Objective Objective Vital Signs Date Time Temp Pulse Resp B/P (MAP) Pulse Ox O2 Delivery O2 Flow Rate FiO2 04/29/19 13:03 90 Room Air 04/29/19 11:00 98.5 94 18 164/105 (124) 98.5 Intake and Output 04/29/19 07:00 Intake Total 200 ml Output Total 0 ml Balance 200 ml Intake Oral 0 ml Tube Feeding 200 ml Output Gastric Drainage Total 0 ml # Voids 5 Vitals Signs Vitals VS - Last 72 Hours, by Label Date Time Temp Pulse Resp B/P (MAP) Pulse Ox O2 Delivery O2 Flow Rate FiO2 04/29/19 13:03 90 Room Air 04/29/19 12:13 Room Air 04/29/19 11:00 98.5 94 18 164/105 (124) 90 Room Air 98.5 04/29/19 09:17 94 Room Air 04/29/19 08:42 93 146/91 04/29/19 08:38 94 Room Air 04/29/19 08:30 Room Air 04/29/19 07:00 98.9 93 17 146/91 (109) 94 Room Air 98.9 04/29/19 05:37 97 Room Air 04/29/19 03:00 98.1 75 22 99/61 (74) 97 Room Air 98.1 04/29/19 02:46 97 Room Air 04/29/19 00:37 97 Room Air 04/28/19 22:45 98.7 91 21 143/84 (103) 97 Room Air 98.7 04/28/19 20:59 96 Room Air 04/28/19 20:29 96 Room Air 04/28/19 20:00 Room Air 04/28/19 19:00 98.2 92 22 141/89 (106) 96 Room Air 98.2 04/28/19 17:47 92 145/92 04/28/19 16:09 16 Room Air 04/28/19 15:39 18 Room Air 04/28/19 15:00 98.3 92 18 145/92 (109) 95 Room Air 98.3 04/28/19 11:00 98.8 96 18 138/84 (102) 93 Room Air 98.8 04/28/19 10:36 18 Room Air 04/28/19 10:06 24 Room Air 04/28/19 08:00 Room Air 04/28/19 07:52 99 155/83 04/28/19 07:00 98.6 99 20 155/83 (107) 95 Room Air 98.6 Laboratory Laboratory Laboratory Tests Test 04/28/19 16:59 04/28/19 20:06 04/28/19 21:50 04/29/19 08:01 Glucose (Fingerstick) 265 mg/dL (70-99) 199 mg/dL (70-99) 335 mg/dL (70-99) Influenza Type A Antigen Negative (NEGATIVE) Influenza Type B Antigen Negative (NEGATIVE) Test 04/29/19 12:01 Glucose (Fingerstick) 233 mg/dL (70-99) Comment Review of Relevant I have reviewed the following items cecilia (where applicable) has been applied. CELESTINE MATIAS MD Apr 29, 2019 14:18
[2019-04-29 15:00] VITALS: BP 183/106
[2019-04-29] MEDS ORDERED: GADOTERATE 7.5 MMOL/15ML VIAL. IVP ONE (15:00)
[2019-04-29] MEDS: MORPHINE IR 15 MG TABLET PEG PRN ×2 (15:48→21:51)
--- NOTE | 2019-04-29 15:55 | NUR ---
Dr. Dejesus called d/t patient losing IV access and needing pain medication. Dr. Dejesus ordered both Morphine SR and Morphine IR, but d/t patient only being able to take meds via peg tube, the SR morphine was dc'd by pharmacy because the sr morphine cannot be crushed.
--- NOTE | 2019-04-29 15:59 | RAD ---
EXAMINATION: Magnetic resonance imaging (MRI) of the brain and brainstem without and with contrast 04/29/2019 4:52 PM HISTORY: Dysarthria with left extremity weakness TECHNIQUE: Multiplanar multi-weighted MRI of the brain and brainstem was performed without and with intravenous contrast using the general brain protocol. Contrast information: 15 mL Gadolinium based contrast COMPARISON: MRI brain 02/16/2019 FINDINGS: The scalp and calvarium are normal. The superior sagittal sinus demonstrates normal venous flow. The corpus callosum is normal in shape and signal intensity. The pituitary and sella are normal. T2 signal hyperintensity is identified within the anthony with a remote lacunar infarct involving the right anthony Remote ischemic changes identified in the left posterior occipital lobe. There is a remote lacunar infarct in the right cerebellum. Remote lacunar infarcts are identified within the bilateral boudreaux radiata, stable from prior examination. There are T2 signal hyperintense foci in the periventricular subcortical white matter which are nonspecific, stable from the prior examination. No new T2 hyperintense lesions are identified. Diffusion weighted images reveal no hyperintensities to suggest acute cerebral infarction. Single focus of susceptibility artifact is identified in the right parietal lobe (series 8, image 18) which may represent a microhemorrhage versus cavernoma. This finding appears new from prior examination from 02/16/2019. The ventricles are normal in size and position without evidence of hydrocephalus. No new enhancing lesions. The paranasal sinuses are normal. The visualized portions of the mastoids are unremarkable. The orbits appear normal. Normal flow voids are demonstrated in the carotid arteries and basilar artery. IMPRESSION: 1. No evidence for acute or subacute ischemia. 2. Stable T2/FLAIR signal hyperintense foci in the periventricular and subcortical white matter as well as and brainstem. No definite new T2 hyperintense lesions are identified although imaging is limited by motion. Consideration may be given for underlying demyelinating disorder such as multiple sclerosis. 3. No new suspicious enhancing lesions. 4. New focal punctate susceptibility artifact is identified in the lateral right parietal lobe which may represent an area of microhemorrhage. Cavernoma may have similar appearance. Electronically signed by: Patricia Mortensen MD (04/29/2019 3:56 PM) [id number]
[2019-04-29 19:00] VITALS: BP 156/102
[2019-04-29] MEDS ORDERED: MORPHINE ER 15 MG TABLET.ER PO SCH (21:00)
[2019-04-29] MEDS: ATORVASTATIN CALCIUM 10 MG TABLET. PO SCH (21:51)
[2019-04-29] MEDS: INSULIN GLARGINE SYRINGE. SQ SCH (21:58)
[2019-04-29 23:00] VITALS: BP 153/111
[2019-04-30 03:00] VITALS: BP 154/100
[2019-04-30 07:00] VITALS: BP 139/91
[2019-04-30] MEDS: PANTOPRAZOLE 40 MG TABLET.DR. PO SCH (08:07)
[2019-04-30] MEDS: FERROUS SULFATE 325 MG TABLET. PO SCH (08:07)
[2019-04-30] MEDS: CLOPIDOGREL BISULFATE 75 MG TABLET PO SCH (08:07)
[2019-04-30] MEDS: FLUTICASONE 50MCG/NASAL SPRAY 16GM BOTTLE. NS SCH (08:08)
[2019-04-30] MEDS: MORPHINE IR 15 MG TABLET PEG PRN ×2 (08:08→13:53)
[2019-04-30] MEDS: ASPIRIN CHEWABLE 81 MG TABLET. PO SCH (08:08)
[2019-04-30] MEDS: CARVEDILOL 12.5 MG TABLET. PO SCH (08:08)
[2019-04-30] MEDS: INSULIN LISPRO 300 UNITS/3 ML VIAL. SQ SCH ×2 (08:09→11:44)
--- NOTE | 2019-04-30 08:26 | PDOC ---
PROGRESS NOTES Chief Complaint Chief Complaint DM2 with hyperglycemia - will place back on insulin regimen. Glucophage XR is not to be crushed. Riomet liquid would be preferred Failure to thrive Chronic obstructive pulmonary disease - will cont nebs prn Tobacco dependent - not currently smoking now Coronary artery disease - s/p stenting x3, cont cadiac meds Expressive aphasia - with dysphagia - C SOFTWARE ENGINEER to see. Cont PEG feeds Essential hypertension - cont meds History of cerebrovascular accident with right-sided weakness - PT and OT for rehab. she needs placement, unable to care for herself and now there is no one to care for her at home Dyslipidemia - cont statin FEN - PEG feeds 40cc/hr glucerna + 100ml q6hr free water bolus PPX - lovenox FULL CODE Dispo - failed home with home health. Case management have sent referrals for SNF placement awaiting for bed History of Present Illness History of Present Illness Seemed quite calm when I first entered the room but very quickly she regressed to being very tearful. Patient stops crying on a whim and starts crying again as usual. I have tried to communicate through writing her needs on a board and I was not very successful. Review of systems is unable to be performed given that the patient cries constantly throughout the questionnaire no acute events reported overnight Vitals Vitals Vital Signs Date Time Temp Pulse Resp B/P (MAP) Pulse Ox O2 Delivery O2 Flow Rate FiO2 04/30/19 08:08 Room Air 04/30/19 08:08 96 139/91 04/30/19 07:00 98.0 16 94 98.0 Physical Exam General: Alert, Cooperative, mild distress Heart: No murmurs Lungs: Clear Abdomen: Normal bowel sounds, Soft, No tenderness, No hepatosplenomegaly, Other (PEG site clean dry) Extremities: No clubbing, No cyanosis, No edema, Normal pulses, No tenderness/swelling Skin: No rashes, No breakdown, No significant lesion Labs LABS Laboratory Tests Test 04/29/19 12:01 04/29/19 16:57 04/29/19 20:21 04/30/19 07:41 Glucose (Fingerstick) 233 mg/dL (70-99) 270 mg/dL (70-99) 225 mg/dL (70-99) 270 mg/dL (70-99) Assessment and Plan Assessmemt and Plan Problems Medical Problems: (1) Hyperglycemia Status: Acute Comment Review of Relevant I have reviewed the following items cecilia (where applicable) has been applied. Labs Laboratory Tests Test 04/28/19 11:27 04/28/19 16:59 04/28/19 20:06 04/28/19 21:50 Glucose (Fingerstick) 218 mg/dL (70-99) 265 mg/dL (70-99) 199 mg/dL (70-99) Influenza Type A Antigen Negative (NEGATIVE) Influenza Type B Antigen Negative (NEGATIVE) Test 04/29/19 08:01 04/29/19 12:01 04/29/19 16:57 04/29/19 20:21 Glucose (Fingerstick) 335 mg/dL (70-99) 233 mg/dL (70-99) 270 mg/dL (70-99) 225 mg/dL (70-99) Test 04/30/19 07:41 Glucose (Fingerstick) 270 mg/dL (70-99) Laboratory Tests Test 04/29/19 12:01 04/29/19 16:57 04/29/19 20:21 04/30/19 07:41 Glucose (Fingerstick) 233 mg/dL (70-99) 270 mg/dL (70-99) 225 mg/dL (70-99) 270 mg/dL (70-99) Medications Current Medications Nitroglycerin (Nitrostat) 0.4 mg PRN Q5MIN PRN SL CP RATING > 1/10; Start 04/24/19 at 17:45 Morphine Sulfate (Morphine Sulfate) 4 mg PRN Q15MIN PRN IV/SQ PAIN GREATER THAN 3/10 Last administered on 04/24/19at 19:34; Start 04/24/19 at 17:45; Stop 04/24/19 at 20:21; Status DC Sodium Chloride 1,000 ml @ 1,000 mls/hr 1X ONCE IV Last administered on 04/24/19at 18:26; Start 04/24/19 at 18:00; Stop 04/24/19 at 18:59; Status DC Ondansetron HCl (Zofran) 4 mg 1X ONCE IVP Last administered on 04/24/19at 18:26; Start 04/24/19 at 18:00; Stop 04/24/19 at 18:01; Status DC Famotidine (Pepcid Vial) 20 mg 1X ONCE IVP Last administered on 04/24/19 18:27; Start 04/24/19 at 18:00; Stop 04/24/19 at 18:01; Status DC Morphine Sulfate (Morphine Sulfate) 4 mg PRN Q2HR PRN IV PAIN Last administered on 04/29/19 12:13; Start 04/24/19 at 20:00 Insulin Human Lispro (HumaLOG) 0-5 UNITS TIDWMEALS SQ Last administered on 04/30/19 08:09; Start 04/25/19 at 08:00 Dextrose (Dextrose 50%-Water Syringe) 12.5 gm PRN Q15MIN PRN IV SEE COMMENTS; Start 04/24/19 at 20:00 Aspirin (Children'S Aspirin) 81 mg DAILYWBKFT PO Last administered on 04/30/19 08:08; Start 04/25/19 at 08:00 Atorvastatin Calcium (Lipitor) 10 mg HS PO Last administered on 04/29/19 21:51; Start 04/25/19 at 21:00 Carvedilol (Coreg) 12.5 mg BIDWMEALS PO Last administered on 04/30/19 08:08; Start 04/25/19 at 08:00 Clopidogrel Bisulfate (Plavix) 75 mg DAILYWBKFT PO Last administered on 04/30/19 08:07; Start 04/25/19 at 08:00 Ferrous Sulfate (Feosol) 325 mg DAILY PO Last administered on 04/30/19 08:07; Start 04/25/19 at 09:00 Fluticasone Propionate (Flonase) 2 spray DAILY NS Last administered on 04/30/19 08:08; Start 04/25/19 at 09:00 Pantoprazole Sodium (Protonix) 40 mg DAILYAC PO Last administered on 04/30/19 08:07; Start 04/25/19 at 07:30 Ondansetron HCl (Zofran) 4 mg PRN Q4HRS PRN IV NAUSEA/VOMITING; Start 04/24/19 at 22:45 Hydralazine HCl (Apresoline Inj) 10 mg PRN Q4HRS PRN IVP ELEVATED BP, SEE COMMENTS Last administered on 04/25/19 22:50; Start 04/24/19 at 22:45 Insulin Glargine (Lantus Syringe) 8 unit QHS SQ Last administered on 04/29/19at 21:58; Start 04/24/19 at 23:15 Acetaminophen (Tylenol) 650 mg PRN Q6HRS PRN PO MILD PAIN / TEMP Last administered on 04/27/19at 09:31; Start 04/25/19 at 22:45 Gadoterate Meglumine (Dotarem) 15 ml 1X ONCE IVP Last administered on 04/29/19at 15:03; Start 04/29/19 at 15:00; Stop 04/29/19 at 15:01; Status DC Morphine Sulfate (Ms Contin) 15 mg BID PO ; Start 04/29/19 at 21:00; Status UNV Morphine Sulfate (Morphine Ir) 15 mg PRN Q6HRS PRN PEG BREAKTHROUGH PAIN Last administered on 04/30/19at 08:08; Start 04/29/19 at 15:45 Active Scripts Active Humalog (Insulin Lispro) 100 Unit/1 Ml Insuln.pen 0 Units SQ TIDWMEALS 28 Days Lasix (Furosemide) 20 Mg Tablet 1 Tab PO DAILY 5 Days Glipizide 5 Mg Tablet 1 Tab PO BID Januvia (Sitagliptin Phosphate) 50 Mg Tablet 1 Tab PO DAILY Pantoprazole Sodium (Pantoprazole Sodium) 40 Mg Tablet.dr 40 Mg PO DAILYAC Atorvastatin Calcium 10 Mg Tablet 1 Tab PO DAILY Naproxen 500 Mg Tablet.dr 1 Tab PO BID Fluticasone Propionate Nasal [place] (Fluticasone Propionate) 16 Gm [place].susp 2 [place] NS DAILY Coreg (Carvedilol) 12.5 Mg Tablet 12.5 Mg PO BIDWMEALS Clopidogrel (Clopidogrel Bisulfate) 75 Mg Tablet 75 Mg PO DAILYWBKFT Reported Metformin ER Gastric (Metformin HCl) 500 Mg [id number] 750 Mg PO DAILY Iron Supplement (Ferrous Sulfate) 325 Mg Tablet 1 Tab PO DAILY Aspirin 81 Mg Tab.chew 1 Tab PO DAILY Vitals/I & O Vital Sign - Last 24 Hours 04/29/19 04/29/19 04/29/19 04/29/19 08:30 08:38 08:42 09:17 Pulse 93 B/P (MAP) 146/91 Pulse Ox 94 94 O2 Delivery Room Air Room Air Room Air 04/29/19 04/29/19 04/29/19 04/29/19 11:00 12:13 13:03 15:00 Temp 98.5 98.5 98.5 98.5 Pulse 94 98 Resp 18 18 B/P (MAP) 164/105 (124) 183/106 (131) Pulse Ox 90 90 93 O2 Delivery Room Air Room Air Room Air Room Air 04/29/19 04/29/19 04/29/19 04/29/19 15:48 16:56 16:57 19:00 Temp 98.4 98.4 Pulse 94 96 Resp 18 B/P (MAP) 139/83 156/102 (120) Pulse Ox 92 O2 Delivery Room Air Room Air Room Air 04/29/19 04/29/19 04/29/19 04/30/19 20:00 21:51 23:00 03:00 Temp 98.4 98.1 98.4 98.1 Pulse 97 86 Resp 16 17 B/P (MAP) 153/111 (125) 154/100 (118) Pulse Ox 92 96 93 O2 Delivery Room Air Room Air Room Air Room Air 04/30/19 04/30/19 04/30/19 07:00 08:08 08:08 Temp 98.0 98.0 Pulse 96 96 Resp 16 B/P (MAP) 139/91 (107) 139/91 Pulse Ox 94 O2 Delivery Room Air Room Air Intake and Output 04/29/19 04/29/19 04/30/19 15:00 23:00 07:00 Intake Total 300 ml 980 ml Balance 300 ml 980 ml PRATEEK GIVENS MD Apr 30, 2019 08:26
[2019-04-30 08:50] LABS: BASO # 0.1 x10^3/uL (0.0-0.2); BASO % 1 % (0-3); EOS # 0.5 x10^3/uL (0.0-0.7); EOS % 5 % (0-3); HEMATOCRIT 25.3 % (36.0-47.0); LYMPH # 1.8 x10^3/uL (1.0-4.8); LYMPH % 18 % (24-48); MEAN CORPUSCULAR HEMOGLOBIN 26 pg (25-35); MEAN CORPUSCULAR HGB CONC 32 g/dL (31-37); MEAN CORPUSCULAR VOLUME 81 fL (79-100); MONO # 0.9 x10^3/uL (0.0-1.1); MONO % 9 % (0-9); NEUT # 6.6 x10^3/uL (1.8-7.7); NEUT % 67 % (31-73); PLATELET COUNT 625 x10^3/uL (140-400); RED BLOOD COUNT 3.11 x10^6/uL (3.50-5.40); RED CELL DISTRIBUTION WIDTH 18.8 % (11.5-14.5); WHITE BLOOD COUNT 9.9 x10^3/uL (4.0-11.0)
[2019-04-30 08:51] LABS: ALBUMIN/GLOBULIN RATIO 0.3 (1.0-1.7); CALCIUM 9.5 mg/dL (8.5-10.1); CREATININE 0.9 mg/dL (0.6-1.0); GFR 81.9; POTASSIUM 4.6 mmol/L (3.5-5.1); TOTAL BILIRUBIN 0.1 mg/dL (0.2-1.0); TOTAL PROTEIN 7.8 g/dL (6.4-8.2)
--- NOTE | 2019-04-30 09:15 | PDOC ---
PROGRESS NOTES Assessment Problems Medical Problems: (1) Hyperglycemia Status: Acute Dysartheria. Pseudobulbar affect Frequent crying spells. Right anthony and right cerebellar infarcts, Lumbar puncture in October 2016 negative for multiple sclerosis or other inflammation. 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 DM. HTN. HLD. Smoking. Vit D deficiency, Hx. Dementia features. Abnormal brain MRI. Obesity. Plan Continue ASA 325 mg daily. Continue Lipitor HS. OT/PT. FU with Neurology after recovery of pneumonia. SNU Subjective Cannot tell me why she is crying Objective Vital Signs Date Time Temp Pulse Resp B/P (MAP) Pulse Ox O2 Delivery O2 Flow Rate FiO2 04/30/19 08:08 Room Air 04/30/19 08:08 96 139/91 04/30/19 07:00 98.0 16 94 98.0 Intake and Output 04/30/19 07:00 Intake Total 1280 ml Balance 1280 ml Tube Feeding 1280 ml # Voids 5 PHYSICAL EXAM Physical Exam: Alert. Oriented to person. Pseudo-bulbar affect, cries for no reason, speech is dysarthric PERRL. EOMI. CN: no focal findings. Muscle tone: increased Muscle strength: 4/5 DTR: 3+ Plantar reflex: flexor Gait: not examined in bed. Sensory exam: no abnormal findings. Cerebellar: not cooperative Review of Relevant I have reviewed the following items cecilia (where applicable) has been applied. Labs Laboratory Tests Test 04/28/19 11:27 04/28/19 16:59 04/28/19 20:06 04/28/19 21:50 Glucose (Fingerstick) 218 mg/dL (70-99) 265 mg/dL (70-99) 199 mg/dL (70-99) Influenza Type A Antigen Negative (NEGATIVE) Influenza Type B Antigen Negative (NEGATIVE) Test 04/29/19 08:01 04/29/19 12:01 04/29/19 16:57 04/29/19 20:21 Glucose (Fingerstick) 335 mg/dL (70-99) 233 mg/dL (70-99) 270 mg/dL (70-99) 225 mg/dL (70-99) Test 04/30/19 07:41 04/30/19 08:15 Glucose (Fingerstick) 270 mg/dL (70-99) White Blood Count 9.9 x10^3/uL (4.0-11.0) Red Blood Count 3.11 x10^6/uL (3.50-5.40) Hemoglobin 8.0 g/dL (12.0-15.5) Hematocrit 25.3 % (36.0-47.0) Mean Corpuscular Volume 81 fL (79-100) Mean Corpuscular Hemoglobin 26 pg (25-35) Mean Corpuscular Hemoglobin Concent 32 g/dL (31-37) Red Cell Distribution Width 18.8 % (11.5-14.5) Platelet Count 625 x10^3/uL (140-400) Neutrophils (%) (Auto) 67 % (31-73) Lymphocytes (%) (Auto) 18 % (24-48) Monocytes (%) (Auto) 9 % (0-9) Eosinophils (%) (Auto) 5 % (0-3) Basophils (%) (Auto) 1 % (0-3) Neutrophils # (Auto) 6.6 x10^3/uL (1.8-7.7) Lymphocytes # (Auto) 1.8 x10^3/uL (1.0-4.8) Monocytes # (Auto) 0.9 x10^3/uL (0.0-1.1) Eosinophils # (Auto) 0.5 x10^3/uL (0.0-0.7) Basophils # (Auto) 0.1 x10^3/uL (0.0-0.2) Sodium Level 135 mmol/L (136-145) Potassium Level 4.6 mmol/L (3.5-5.1) Chloride Level 98 mmol/L (98-107) Carbon Dioxide Level 28 mmol/L (21-32) Anion Gap 9 (6-14) Blood Urea Nitrogen 8 mg/dL (7-20) Creatinine 0.9 mg/dL (0.6-1.0) Estimated GFR (Cockcroft-Gault) 81.9 BUN/Creatinine Ratio 9 (6-20) Glucose Level 283 mg/dL (70-99) Calcium Level 9.5 mg/dL (8.5-10.1) Total Bilirubin 0.1 mg/dL (0.2-1.0) Aspartate Amino Transf (AST/SGOT) 14 U/L (15-37) Alanine Aminotransferase (ALT/SGPT) 9 U/L (14-59) Alkaline Phosphatase 96 U/L (46-116) Total Protein 7.8 g/dL (6.4-8.2) Albumin 2.0 g/dL (3.4-5.0) Albumin/Globulin Ratio 0.3 (1.0-1.7) Laboratory Tests Test 04/29/19 12:01 04/29/19 16:57 04/29/19 20:21 04/30/19 07:41 Glucose (Fingerstick) 233 mg/dL (70-99) 270 mg/dL (70-99) 225 mg/dL (70-99) 270 mg/dL (70-99) Test 04/30/19 08:15 White Blood Count 9.9 x10^3/uL (4.0-11.0) Red Blood Count 3.11 x10^6/uL (3.50-5.40) Hemoglobin 8.0 g/dL (12.0-15.5) Hematocrit 25.3 % (36.0-47.0) Mean Corpuscular Volume 81 fL (79-100) Mean Corpuscular Hemoglobin 26 pg (25-35) Mean Corpuscular Hemoglobin Concent 32 g/dL (31-37) Red Cell Distribution Width 18.8 % (11.5-14.5) Platelet Count 625 x10^3/uL (140-400) Neutrophils (%) (Auto) 67 % (31-73) Lymphocytes (%) (Auto) 18 % (24-48) Monocytes (%) (Auto) 9 % (0-9) Eosinophils (%) (Auto) 5 % (0-3) Basophils (%) (Auto) 1 % (0-3) Neutrophils # (Auto) 6.6 x10^3/uL (1.8-7.7) Lymphocytes # (Auto) 1.8 x10^3/uL (1.0-4.8) Monocytes # (Auto) 0.9 x10^3/uL (0.0-1.1) Eosinophils # (Auto) 0.5 x10^3/uL (0.0-0.7) Basophils # (Auto) 0.1 x10^3/uL (0.0-0.2) Sodium Level 135 mmol/L (136-145) Potassium Level 4.6 mmol/L (3.5-5.1) Chloride Level 98 mmol/L (98-107) Carbon Dioxide Level 28 mmol/L (21-32) Anion Gap 9 (6-14) Blood Urea Nitrogen 8 mg/dL (7-20) Creatinine 0.9 mg/dL (0.6-1.0) Estimated GFR (Cockcroft-Gault) 81.9 BUN/Creatinine Ratio 9 (6-20) Glucose Level 283 mg/dL (70-99) Calcium Level 9.5 mg/dL (8.5-10.1) Total Bilirubin 0.1 mg/dL (0.2-1.0) Aspartate Amino Transf (AST/SGOT) 14 U/L (15-37) Alanine Aminotransferase (ALT/SGPT) 9 U/L (14-59) Alkaline Phosphatase 96 U/L (46-116) Total Protein 7.8 g/dL (6.4-8.2) Albumin 2.0 g/dL (3.4-5.0) Albumin/Globulin Ratio 0.3 (1.0-1.7) Medications Current Medications Nitroglycerin (Nitrostat) 0.4 mg PRN Q5MIN PRN SL CP RATING > 1/10; Start 04/24/19 at 17:45 Morphine Sulfate (Morphine Sulfate) 4 mg PRN Q15MIN PRN IV/SQ PAIN GREATER THAN 3/10 Last administered on 04/24/19at 19:34; Start 04/24/19 at 17:45; Stop 04/24/19 at 20:21; Status DC Sodium Chloride 1,000 ml @ 1,000 mls/hr 1X ONCE IV Last administered on 04/24/19 18:26; Start 04/24/19 at 18:00; Stop 04/24/19 at 18:59; Status DC Ondansetron HCl (Zofran) 4 mg 1X ONCE IVP Last administered on 04/24/19 18:26; Start 04/24/19 at 18:00; Stop 04/24/19 at 18:01; Status DC Famotidine (Pepcid Vial) 20 mg 1X ONCE IVP Last administered on 04/24/19 18:27; Start 04/24/19 at 18:00; Stop 04/24/19 at 18:01; Status DC Morphine Sulfate (Morphine Sulfate) 4 mg PRN Q2HR PRN IV PAIN Last administered on 04/29/19 12:13; Start 04/24/19 at 20:00 Insulin Human Lispro (HumaLOG) 0-5 UNITS TIDWMEALS SQ Last administered on 04/30/19 08:09; Start 04/25/19 at 08:00 Dextrose (Dextrose 50%-Water Syringe) 12.5 gm PRN Q15MIN PRN IV SEE COMMENTS; Start 04/24/19 at 20:00 Aspirin (Children'S Aspirin) 81 mg DAILYWBKFT PO Last administered on 04/30/19 08:08; Start 04/25/19 at 08:00 Atorvastatin Calcium (Lipitor) 10 mg HS PO Last administered on 04/29/19 21:51; Start 04/25/19 at 21:00 Carvedilol (Coreg) 12.5 mg BIDWMEALS PO Last administered on 04/30/19 08:08; Start 04/25/19 at 08:00 Clopidogrel Bisulfate (Plavix) 75 mg DAILYWBKFT PO Last administered on 04/30/19 08:07; Start 04/25/19 at 08:00 Ferrous Sulfate (Feosol) 325 mg DAILY PO Last administered on 04/30/19 08:07; Start 04/25/19 at 09:00 Fluticasone Propionate (Flonase) 2 spray DAILY NS Last administered on 04/30/19 08:08; Start 04/25/19 at 09:00 Pantoprazole Sodium (Protonix) 40 mg DAILYAC PO Last administered on 04/30/19 08:07; Start 04/25/19 at 07:30 Ondansetron HCl (Zofran) 4 mg PRN Q4HRS PRN IV NAUSEA/VOMITING; Start 04/24/19 at 22:45 Hydralazine HCl (Apresoline Inj) 10 mg PRN Q4HRS PRN IVP ELEVATED BP, SEE COMMENTS Last administered on 04/25/19 22:50; Start 04/24/19 at 22:45 Insulin Glargine (Lantus Syringe) 8 unit QHS SQ Last administered on 04/29/19 21:58; Start 3/7/20 at 23:15 Acetaminophen (Tylenol) 650 mg PRN Q6HRS PRN PO MILD PAIN / TEMP Last administered on 04/27/19at 09:31; Start 04/25/19 at 22:45 Gadoterate Meglumine (Dotarem) 15 ml 1X ONCE IVP Last administered on 04/29/19at 15:03; Start 04/29/19 at 15:00; Stop 04/29/19 at 15:01; Status DC Morphine Sulfate (Ms Contin) 15 mg BID PO ; Start 04/29/19 at 21:00; Status UNV Morphine Sulfate (Morphine Ir) 15 mg PRN Q6HRS PRN PEG BREAKTHROUGH PAIN Last administered on 04/30/19at 08:08; Start 04/29/19 at 15:45 Active Scripts Active Humalog (Insulin Lispro) 100 Unit/1 Ml Insuln.pen 0 Units SQ TIDWMEALS 28 Days Lasix (Furosemide) 20 Mg Tablet 1 Tab PO DAILY 5 Days Glipizide 5 Mg Tablet 1 Tab PO BID Januvia (Sitagliptin Phosphate) 50 Mg Tablet 1 Tab PO DAILY Pantoprazole Sodium (Pantoprazole Sodium) 40 Mg Tablet.dr 40 Mg PO DAILYAC Atorvastatin Calcium 10 Mg Tablet 1 Tab PO DAILY Naproxen 500 Mg Tablet.dr 1 Tab PO BID Fluticasone Propionate Nasal Kelly (Fluticasone Propionate) 16 Gm Kelly.susp 2 Kelly NS DAILY Coreg (Carvedilol) 12.5 Mg Tablet 12.5 Mg PO BIDWMEALS Clopidogrel (Clopidogrel Bisulfate) 75 Mg Tablet 75 Mg PO DAILYWBKFT Reported Metformin ER Gastric (Metformin HCl) 500 Mg [id number] 750 Mg PO DAILY Iron Supplement (Ferrous Sulfate) 325 Mg Tablet 1 Tab PO DAILY Aspirin 81 Mg Tab.chew 1 Tab PO DAILY Vitals/I & O Vital Sign - Last 24 Hours 04/29/19 04/29/19 04/29/19 04/29/19 09:17 11:00 12:13 13:03 Temp 98.5 98.5 Pulse 94 Resp 18 B/P (MAP) 164/105 (124) Pulse Ox 94 90 90 O2 Delivery Room Air Room Air Room Air Room Air 04/29/19 04/29/19 04/29/19 04/29/19 15:00 15:48 16:56 16:57 Temp 98.5 98.5 Pulse 98 94 Resp 18 B/P (MAP) 183/106 (131) 139/83 Pulse Ox 93 O2 Delivery Room Air Room Air Room Air 04/29/19 04/29/19 04/29/19 04/29/19 19:00 20:00 21:51 23:00 Temp 98.4 98.4 98.4 98.4 Pulse 96 97 Resp 18 16 B/P (MAP) 156/102 (120) 153/111 (125) Pulse Ox 92 92 96 O2 Delivery Room Air Room Air Room Air Room Air 04/30/19 04/30/19 04/30/19 04/30/19 03:00 07:00 08:00 08:08 Temp 98.1 98.0 98.1 98.0 Pulse 86 96 96 Resp 17 16 B/P (MAP) 154/100 (118) 139/91 (107) 139/91 Pulse Ox 93 94 O2 Delivery Room Air Room Air Room Air 04/30/19 08:08 O2 Delivery Room Air Intake and Output 04/29/19 04/29/19 04/30/19 15:00 23:00 07:00 Intake Total 300 ml 980 ml Balance 300 ml 980 ml Images Magnetic resonance imaging (MRI) of the brain and brainstem without and with contrast 04/29/2019 4:52 PM HISTORY: Dysarthria with left extremity weakness TECHNIQUE: Multiplanar multi-weighted MRI of the brain and brainstem was performed without and with intravenous contrast using the general brain protocol. Contrast information: 15 mL Gadolinium based contrast COMPARISON: MRI brain 02/16/2019 FINDINGS: The scalp and calvarium are normal. The superior sagittal sinus demonstrates normal venous flow. The corpus callosum is normal in shape and signal intensity. The pituitary and sella are normal. T2 signal hyperintensity is identified within the anthony with a remote lacunar infarct involving the right anthony Remote ischemic changes identified in the left posterior occipital lobe. There is a remote lacunar infarct in the right cerebellum. Remote lacunar infarcts are identified within the bilateral boudreaux radiata, stable from prior examination. There are T2 signal hyperintense foci in the periventricular subcortical white matter which are nonspecific, stable from the prior examination. No new T2 hyperintense lesions are identified. Diffusion weighted images reveal no hyperintensities to suggest acute cerebral infarction. Single focus of susceptibility artifact is identified in the right parietal lobe (series 8, image 18) which may represent a microhemorrhage versus cavernoma. This finding appears new from prior examination from 02/16/2019. The ventricles are normal in size and position without evidence of hydrocephalus. No new enhancing lesions. The paranasal sinuses are normal. The visualized portions of the mastoids are unremarkable. The orbits appear normal. Normal flow voids are demonstrated in the carotid arteries and basilar artery. IMPRESSION: 1. No evidence for acute or subacute ischemia. 2. Stable T2/FLAIR signal hyperintense foci in the periventricular and subcortical white matter as well as and brainstem. No definite new T2 hyperintense lesions are identified although imaging is limited by motion. Consideration may be given for underlying demyelinating disorder such as multiple sclerosis. 3. No new suspicious enhancing lesions. 4. New focal punctate susceptibility artifact is identified in the lateral right parietal lobe which may represent an area of microhemorrhage. Cavernoma may have similar appearance. CAT DORADO MD Apr 30, 2019 09:15
[2019-04-30 10:11] LABS: ALBUM 2.3 g/dL (2.9-4.4); ALPHA 1 0.5 g/dL (0.0-0.4); ALPHA 2 1.2 g/dL (0.4-1.0); BETA 1.3 g/dL (0.7-1.3); GAMMA 2.1 g/dL (0.4-1.8); PROTEIN TOTAL 7.3 g/dL (6.0-8.5); SPEP AG RATIO 0.5 (0.7-1.7)
[2019-04-30 11:00] VITALS: BP 132/84
--- NOTE | 2019-04-30 11:52 | SNU/HH DC ---
DISCHARGE WITH HOME HEALTH DISCHARGE INFORMATION: Discharge Date: Apr 30, 2019 Final Diagnosis: Problems Medical Problems: (1) Hyperglycemia Status: Acute Condition on Discharge: Stable CODE STATUS: Code Status: Full HOME HEALTH: Face to Face: I certify this patient is under my care and that I, or a nurse practitioner or physician's daycare assistant working with me, had a face to face encounter that meets the physician face to face encounter requirements with this patient on []. RN For Eval/Treatment: Yes Physical Therapy For: Evalulation/Treatment Occupational Therapy For: Evaluation/Treatment Speech Language Pathology For: Evaluation/Treatment Pt Meets Homebound Status: Extreme weakness w/ amb., Limited distance walking POST DISCHARGE ORDERS: Activity Instructions for Disc: Activity as tolerated Weight Bearing Status after Di: As tolerated Bathing Instructions: No Tub Bath until see DIET AFTER DISCHARGE: NPO Wound/Incision Care: No wound care needed DC TO SNF OTHER: tube feeds 45 mls/hr, glucerna 1.2 or similar CHECKS AFTER DISCHARGE: Checks after discharge: Check blood press - daily, Check blood sugar, ac/hs TREATMENT/EQUIPMENT ORDERS: Adaptive Equipment Issued: None Infusion Equipment, home use: Feeding Tube CERTIFICATION STATEMENT: Certification Statement: Certification Statement: Based on the above finding, I certify that this patient is confined to the home and needs intermittent fpc care, physical therapy and/or speech therapy, or continues to need occupational therapy.~ This patient is under my care, and I have initiated the establishment of the plan of care.~ This patient will be followed by myself or a community physician who will periodically review the plan of care. Home Meds Active Scripts Insulin Lispro (HUMALOG) 100 Unit/1 Ml Insuln.pen, 0 UNITS SQ TIDWMEALS for glucose for 28 Days, #2 EACH Prov:JUSTIN GE MD 02/17/19 Furosemide (LASIX) 20 Mg Tablet, 1 TAB PO DAILY for 5 Days, #5 TAB 0 Refills Prov:REX GARZA Jr., DO 12/31/18 Glipizide (GLIPIZIDE) 5 Mg Tablet, 1 TAB PO BID, #30 TAB 3 Refills Prov:MALENA CID APRN 09/18/18 Sitagliptin Phosphate (JANUVIA) 50 Mg Tablet, 1 TAB PO DAILY, #30 TAB 0 Refills Prov:MALENA CID APRN 09/18/18 Pantoprazole Sodium (PANTOPRAZOLE SODIUM ) 40 Mg Tablet.dr, 40 MG PO DAILYAC for GERD, #30 TAB Prov:MALENA CID APRN 09/18/18 Atorvastatin Calcium (ATORVASTATIN CALCIUM) 10 Mg Tablet, 1 TAB PO DAILY, #30 TAB 0 Refills Prov:MALENA CID APRN 09/18/18 Naproxen (NAPROXEN) 500 Mg Tablet.dr, 1 TAB PO BID, #60 TAB 2 Refills Prov:MALENA CID APRN 03/05/16 Fluticasone Propionate (FLUTICASONE PROPIONATE NASAL SPRAY) 16 Gm [place].susp, 2 SPRAY NS DAILY, #1 BOTTLE Prov:EULA KENNEDY MD 02/20/16 Carvedilol (COREG ) 12.5 Mg Tablet, 12.5 MG PO BIDWMEALS, #60 TAB 2 Refills Prov:DAVID CONNOLLY MD 08/26/15 Clopidogrel Bisulfate (CLOPIDOGREL) 75 Mg Tablet, 75 MG PO DAILYWBKFT, #30 TAB 2 Refills Prov:DAVID CONNOLLY MD 08/26/15 Reported Medications Metformin HCl (Metformin ER Gastric) 500 Mg [id number], 750 MG PO DAILY for Diabetes Mellitis, TAB.SR 02/15/19 Ferrous Sulfate (IRON SUPPLEMENT) 325 Mg Tablet, 1 TAB PO DAILY, #30 TAB 10 Refills 10/04/13 Aspirin (ASPIRIN) 81 Mg Tab.chew, 1 TAB PO DAILY, #30 TAB 3 Refills 10/04/13 Discontinued Scripts Hydralazine Hcl (HYDRALAZINE HCL) 25 Mg Tablet, 1 TAB PO BID for htn for 30 Days, #60 TAB Prov:JASMIN CARTER MD 03/22/19 PRATEEK GIVENS MD Apr 30, 2019 11:52
--- NOTE | 2019-04-30 12:00 | PDOC3 ---
Discharge Summary Visit Information Date of Admission: Apr 25, 2019 Date of Discharge: Apr 30, 2019 Admitting Diagnosis Comment: DM2 with hyperglycemia - will place back on insulin regimen. Glucophage XR is not to be crushed. Riomet liquid would be preferred Failure to thrive Chronic obstructive pulmonary disease - will cont nebs prn Tobacco dependent - not currently smoking now Coronary artery disease - s/p stenting x3, cont cadiac meds Expressive aphasia - with dysphagia - NON DESTRUCTIVE EVALUATION SPECIALIST to see. Cont PEG feeds Essential hypertension - cont meds History of cerebrovascular accident with right-sided weakness - PT and OT for rehab. she needs placement, unable to care for herself and now there is no one to care for her at home Dyslipidemia - cont statin Final Diagnosis DM2 with hyperglycemia - will place back on insulin regimen. Glucophage XR is not to be crushed. Riomet liquid would be preferred Failure to thrive Chronic obstructive pulmonary disease - will cont nebs prn Tobacco dependent - not currently smoking now Coronary artery disease - s/p stenting x3, cont cadiac meds Expressive aphasia - with dysphagia - NON DESTRUCTIVE EVALUATION SPECIALIST to see. Cont PEG feeds Essential hypertension - cont meds History of cerebrovascular accident with right-sided weakness - PT and OT for rehab. she needs placement, unable to care for herself and now there is no one to care for her at home Dyslipidemia - cont statin Brief Hospital Course Allergies Allergies Coded Allergies Type Severity Reaction Last Updated Verified Sulfa (Sulfonamide Antibiotics) Allergy Intermediate hives 04/21/19 Yes lisinopril Allergy Intermediate hives 04/21/19 Yes Vital Signs Vital Signs Date Time Temp Pulse Resp B/P (MAP) Pulse Ox O2 Delivery O2 Flow Rate FiO2 04/30/19 09:37 Room Air 04/30/19 08:08 96 139/91 04/30/19 07:00 98.0 16 94 98.0 Lab Results Laboratory Tests Test 04/28/19 16:59 04/28/19 20:06 04/28/19 21:50 04/29/19 08:01 Glucose (Fingerstick) 265 mg/dL (70-99) 199 mg/dL (70-99) 335 mg/dL (70-99) Influenza Type A Antigen Negative (NEGATIVE) Influenza Type B Antigen Negative (NEGATIVE) Test 04/29/19 12:01 04/29/19 16:57 04/29/19 20:21 04/30/19 07:41 Glucose (Fingerstick) 233 mg/dL (70-99) 270 mg/dL (70-99) 225 mg/dL (70-99) 270 mg/dL (70-99) Test 04/30/19 08:15 04/30/19 11:03 White Blood Count 9.9 x10^3/uL (4.0-11.0) Red Blood Count 3.11 x10^6/uL (3.50-5.40) Hemoglobin 8.0 g/dL (12.0-15.5) Hematocrit 25.3 % (36.0-47.0) Mean Corpuscular Volume 81 fL (79-100) Mean Corpuscular Hemoglobin 26 pg (25-35) Mean Corpuscular Hemoglobin Concent 32 g/dL (31-37) Red Cell Distribution Width 18.8 % (11.5-14.5) Platelet Count 625 x10^3/uL (140-400) Neutrophils (%) (Auto) 67 % (31-73) Lymphocytes (%) (Auto) 18 % (24-48) Monocytes (%) (Auto) 9 % (0-9) Eosinophils (%) (Auto) 5 % (0-3) Basophils (%) (Auto) 1 % (0-3) Neutrophils # (Auto) 6.6 x10^3/uL (1.8-7.7) Lymphocytes # (Auto) 1.8 x10^3/uL (1.0-4.8) Monocytes # (Auto) 0.9 x10^3/uL (0.0-1.1) Eosinophils # (Auto) 0.5 x10^3/uL (0.0-0.7) Basophils # (Auto) 0.1 x10^3/uL (0.0-0.2) Sodium Level 135 mmol/L (136-145) Potassium Level 4.6 mmol/L (3.5-5.1) Chloride Level 98 mmol/L (98-107) Carbon Dioxide Level 28 mmol/L (21-32) Anion Gap 9 (6-14) Blood Urea Nitrogen 8 mg/dL (7-20) Creatinine 0.9 mg/dL (0.6-1.0) Estimated GFR (Cockcroft-Gault) 81.9 BUN/Creatinine Ratio 9 (6-20) Glucose Level 283 mg/dL (70-99) Calcium Level 9.5 mg/dL (8.5-10.1) Total Bilirubin 0.1 mg/dL (0.2-1.0) Aspartate Amino Transf (AST/SGOT) 14 U/L (15-37) Alanine Aminotransferase (ALT/SGPT) 9 U/L (14-59) Alkaline Phosphatase 96 U/L (46-116) Total Protein 7.8 g/dL (6.4-8.2) Albumin 2.0 g/dL (3.4-5.0) Albumin/Globulin Ratio 0.3 (1.0-1.7) Glucose (Fingerstick) 270 mg/dL (70-99) Laboratory Tests Test 04/29/19 12:01 04/29/19 16:57 04/29/19 20:21 04/30/19 07:41 Glucose (Fingerstick) 233 mg/dL (70-99) 270 mg/dL (70-99) 225 mg/dL (70-99) 270 mg/dL (70-99) Test 04/30/19 08:15 04/30/19 11:03 White Blood Count 9.9 x10^3/uL (4.0-11.0) Red Blood Count 3.11 x10^6/uL (3.50-5.40) Hemoglobin 8.0 g/dL (12.0-15.5) Hematocrit 25.3 % (36.0-47.0) Mean Corpuscular Volume 81 fL (79-100) Mean Corpuscular Hemoglobin 26 pg (25-35) Mean Corpuscular Hemoglobin Concent 32 g/dL (31-37) Red Cell Distribution Width 18.8 % (11.5-14.5) Platelet Count 625 x10^3/uL (140-400) Neutrophils (%) (Auto) 67 % (31-73) Lymphocytes (%) (Auto) 18 % (24-48) Monocytes (%) (Auto) 9 % (0-9) Eosinophils (%) (Auto) 5 % (0-3) Basophils (%) (Auto) 1 % (0-3) Neutrophils # (Auto) 6.6 x10^3/uL (1.8-7.7) Lymphocytes # (Auto) 1.8 x10^3/uL (1.0-4.8) Monocytes # (Auto) 0.9 x10^3/uL (0.0-1.1) Eosinophils # (Auto) 0.5 x10^3/uL (0.0-0.7) Basophils # (Auto) 0.1 x10^3/uL (0.0-0.2) Sodium Level 135 mmol/L (136-145) Potassium Level 4.6 mmol/L (3.5-5.1) Chloride Level 98 mmol/L (98-107) Carbon Dioxide Level 28 mmol/L (21-32) Anion Gap 9 (6-14) Blood Urea Nitrogen 8 mg/dL (7-20) Creatinine 0.9 mg/dL (0.6-1.0) Estimated GFR (Cockcroft-Gault) 81.9 BUN/Creatinine Ratio 9 (6-20) Glucose Level 283 mg/dL (70-99) Calcium Level 9.5 mg/dL (8.5-10.1) Total Bilirubin 0.1 mg/dL (0.2-1.0) Aspartate Amino Transf (AST/SGOT) 14 U/L (15-37) Alanine Aminotransferase (ALT/SGPT) 9 U/L (14-59) Alkaline Phosphatase 96 U/L (46-116) Total Protein 7.8 g/dL (6.4-8.2) Albumin 2.0 g/dL (3.4-5.0) Albumin/Globulin Ratio 0.3 (1.0-1.7) Glucose (Fingerstick) 270 mg/dL (70-99) Brief Hospital Course History of Present Illness Ms Al is a 43 yo F w/ PMHx chronic obstructive pulmonary disease, tobacco dependent, coronary artery disease, hypertension, hyperlipidemia, cerebrovascular accident with residual right sided weakness and an expressive aphasia who recently had feeding tube placed and was discharged home with home health that was brought back to ED by daughter because she was unable to give patient any metformin through PEG tube. She was given script for insulin, but noted she was not able to purchase the insulin due to cost and told SCRATCHER TENDER in the ED she is unable to take care of her mother. Daughter report patient's glucose was over 400 at home. KUB showed PEG in proper position. WBC 14.3, Hb 8.2, platelets 713. Glucose 257 on labs. EKG NSR. Apparently what caused the problem was that the patient was crushing the Metformin XR. The patient will go home with the immediate release form. There was a question throughout the hospital stay the patient may have MS nevertheless Dr. 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 The dysarthria most likely is related to the multiple infarcts she has suffered as a consequence of cocaine abuse. The patient did present at times quiet episodes without her crying spells that characterize her. She did not have any adverse outcomes in the inpatient hospital setting and she will be going home with insulin and metformin immediate release for her diabetes control. Greater than 35 minutes were spent in the discharge process the patient in counseling coordination of care and arrangements for a safe transfer home with home health services. Discussed with daughter prior to departure General: Alert, Cooperative, mild distress Heart: No murmurs Lungs: Clear Abdomen: Normal bowel sounds, Soft, No tenderness, No hepatosplenomegaly, Other (PEG site clean dry) Extremities: No clubbing, No cyanosis, No edema, Normal pulses, No tenderness/swelling Skin: No rashes, No breakdown, No significant lesion Discharge Information Condition at Discharge: Improved Follow Up: Weeks Disposition/Orders: D/C to Home w/ HH Scheduled Aspirin (Aspirin) 81 Mg Tab.chew, 1 TAB PO DAILY, #30 Ref 3 (Reported) Entered as Reported by: PHUONG MOTT on 10/04/13 1550 Last Action: Continued on 04/24/192243 by FLORESITA VALLEJO MD Atorvastatin Calcium (Atorvastatin Calcium) 10 Mg Tablet, 1 TAB PO DAILY, #30 Ref 0 Prescribed by: Radha Pedroza APRN on 09/18/18 0105 Last Action: Continued on 04/24/192243 by FLORESITA VALLEJO MD Carvedilol (Coreg ) 12.5 Mg Tablet, 12.5 MG PO BIDWMEALS, #60 Ref 2 Prescribed by: DAVID CONNOLLY MD on 08/26/15 1536 Last Action: Continued on 04/24/192243 by FLORESITA VALLEJO MD Clopidogrel Bisulfate (Clopidogrel) 75 Mg Tablet, 75 MG PO DAILYWBKFT, #30 Ref 2 Prescribed by: DAVID CONNOLLY MD on 08/26/15 1536 Last Action: Continued on 04/24/192243 by FLORESITA VALLEJO MD Ferrous Sulfate (Iron Supplement) 325 Mg Tablet, 1 TAB PO DAILY, #30 Ref 10 (Reported) Entered as Reported by: PHUONG MOTT on 10/04/13 1550 Last Action: Continued on 04/24/192243 by FLORESITA VALLEJO MD Fluticasone Propionate (Fluticasone Propionate Nasal Dale) 16 Gm Dale.susp, 2 SPRAY NS DAILY, #1 Prescribed by: EULA KENNEDY MD on 02/20/16 1227 Last Action: Continued on 04/24/192243 by FLORESITA VALLEJO MD Furosemide (Lasix) 20 Mg Tablet, 1 TAB PO DAILY for 5 Days, #5 Ref 0 Prescribed by: REX GARZA D.O. on 12/31/18 2211 Glipizide (Glipizide) 5 Mg Tablet, 1 TAB PO BID, #30 Ref 3 Prescribed by: Radha Pedroza APRN on 09/18/18104 Insulin Lispro (Humalog) 100 Unit/1 Ml Insuln.pen, 0 UNITS SQ TIDWMEALS for glucose for 28 Days, #2 Prescribed by: JUSTIN GE MD on 02/17/19 1219 Metformin HCl (Metformin ER Gastric) 500 Mg [id number], 750 MG PO DAILY for Diabetes Mellitis, (Reported) Entered as Reported by: ILIA RAMIREZ on 02/15/19 1751 Naproxen (Naproxen) 500 Mg Tablet.dr, 1 TAB PO BID, #60 Ref 2 Prescribed by: Radha Pedroza APRN on 03/05/16 1735 Pantoprazole Sodium (Pantoprazole Sodium ) 40 Mg Tablet.dr, 40 MG PO DAILYAC for GERD, #30 Prescribed by: Radha Pedroza APRN on 09/18/18104 Last Action: Continued on 04/24/192243 by FLORESITA VALLEJO MD Sitagliptin Phosphate (Januvia) 50 Mg Tablet, 1 TAB PO DAILY, #30 Ref 0 Prescribed by: Radha Pedroza APRN on 09/18/18104 Discontinued Medications Hydralazine Hcl (Hydralazine Hcl) 25 Mg Tablet, 1 TAB PO BID for htn for 30 Days, #60 Discontinued Reason: Auto Discontinued Prescribed by: JASMIN CARTER MD on 03/22/19 1201 PRATEEK GIVENS MD Apr 30, 2019 12:00
[2019-04-30] MEDS ORDERED: INSU100V8 SQ (12:03)
[2019-04-30] MEDS ORDERED: METF500S PO (12:03)
--- NOTE | 2019-04-30 13:00 | NUR ---
ROCÍO following. Discussed with RN. ROCÍO spoke with pt's daughter, Ángela at bedside. Ángela does not want pt to go to a long-term care facility. She wants to take her home and said the only reason they came back here is because the peg tube got blocked with the metformin. Ángela has no concerns about taking pt home to take care of her. ROCÍO faxed clinicals and discharge order to [facility], who pt was on services with. Pt discharging home today at 1400 with [facility] transportation. RN notified.
--- NOTE | 2019-04-30 15:32 | NUR ---
Discharge Note: PT DISCHARGED HOME WITH [facility]. PT LEFT FACILITY [facility]IA [facility] AT 1420. PT STABLE AND ALERT UPON DISCHARGE. PT HAD NO IV ACCESS TO REMOVE. PT DAUGHTER EDUCATED ABOUT DISCHARGE INSTRUCTIONS, DISCHARGE MEDICATIONS, AND FOLLOW-UP APPOINTMENTS. DAUGHTER PROVIDED EDUCATIONAL MATERIALS FOR TUBE FEED CARE AND TUBE FEEDING INSTRUCTIONS, INSULIN INJECTIONS, STORAGE AND CARE OF INSULIN, AND DIABETES. NO CONCERNS VOICED AT THIS TIME. PT LEFT WITH ALL PERSONAL BELONGINGS. MARILU MANCIA Y5 [facility] Discharge instructions and discharge home medications reviewed with Patient and a copy given. All questions have been answered and understanding verbalized.
== END 2019-04-30 14:20 | disposition home health service (06) | DRG 637 ==
LOC: ER 17:20 → 5 SOUTH 19:50
PROVIDERS: ADMIT Internal Medicine; ATTEND Internal Medicine
DX: E11.65 Type 2 diabetes mellitus with hyperglycemia (principal); E43 Unspecified severe protein-calorie malnutrition; I69.351 Hemiplegia and hemiparesis following cerebral infarction affecting right dominant side; R47.01 Aphasia; F32.9 Major depressive disorder, single episode, unspecified; F41.9 Anxiety disorder, unspecified; M19.90 Unspecified osteoarthritis, unspecified site; I25.10 Atherosclerotic heart disease of native coronary artery without angina pectoris; I11.0 Hypertensive heart disease with heart failure; I50.9 Heart failure, unspecified; F17.210 Nicotine dependence, cigarettes, uncomplicated; E78.00 Pure hypercholesterolemia, unspecified; E78.5 Hyperlipidemia, unspecified; F48.2 Pseudobulbar affect; R13.10 Dysphagia, unspecified; F14.10 Cocaine abuse, uncomplicated; E55.9 Vitamin D deficiency, unspecified; F03.90 Unspecified dementia, unspecified severity, without behavioral disturbance, psychotic disturbance, mood disturbance, and anxiety; E66.9 Obesity, unspecified; Z71.89 Other specified counseling; Z79.82 Long term (current) use of aspirin; Z79.4 Long term (current) use of insulin; Z91.19 Patient's noncompliance with other medical treatment and regimen; Y92.89 Other specified places as the place of occurrence of the external cause; Z95.5 Presence of coronary angioplasty implant and graft; Z88.2 Allergy status to sulfonamides; Z88.8 Allergy status to other drugs, medicaments and biological substances; Z83.3 Family history of diabetes mellitus; Z82.49 Family history of ischemic heart disease and other diseases of the circulatory system; Z87.01 Personal history of pneumonia (recurrent)
CPT/HCPCS: 36415; 70553; 74022; 80048; 80053; 80307; 81001; 82310; 82553; 82962; 83690; 83735; 83880; 84165; 84443; 84484; 85025; 87804; 93005; 96361; 96374; 96375; 96376; A9575; J0360; J1815; J2270; J2405; J3490; J7030; 92610; 97110; 97116; 97530; 97535; 99285-25; G0378

== ENCOUNTER 2019-05-02 09:33 | Emergency (ER) | payer MEDICAID ==
[~2019-05-02] VITALS: Ht 162.6 cm; Wt 72.0 kg
[~2019-05-02 09:33] MED LIST changes: +INSU100V8 SQ; +METF500S PO
--- NOTE | 2019-05-02 10:31 | RAD ---
CHEST AP ONLY History: Cough Comparison: April 19, 2019 chest x-ray. Abdominal x-ray April 27, 2019 Findings: Decreased patchy right basilar consolidation compared to prior. No pleural effusion. Unchanged heart size. No pneumothorax. Impression: 1. Decreased right basilar consolidation. Recommend continued follow-up to ensure complete resolution. Electronically signed by: Mitchell Chew DO (05/02/2019 10:28 AM) [id number]
[2019-05-02 10:35] VITALS: BP 124/94
--- NOTE | 2019-05-02 10:35 | PHYS DOC ---
Past Medical History Past Medical History: CAD, CHF, CVA, Diabetes-Type II, Hypertension, ME, Stroke, Other Additional Past Medical Histor: 3 CARDIAC STENTS, LEFT BREAST CYST Past Surgical History: Angioplasty, Other Additional Past Surgical Histo: CARDIAC STENTS X'S 3,HEART CATH, Smoking Status: Current Every Day Smoker Alcohol Use: None Drug Use: Marijuana Adult General Chief Complaint Chief Complaint: SHORTNESS OF BREATH HPI HPI Patient is very unfortunate 43-year-old female with multiple medical problems who is recently been in the hospital. She presents today with a little bit of a dry cough and a subjective fever at home. Patient is tearful and really unable to provide any meaningful history.[] Review of Systems Review of Systems [] Review of systems is unobtainable secondary to patient's underlying CVA Allergies Allergies Allergies Coded Allergies Type Severity Reaction Last Updated Verified Sulfa (Sulfonamide Antibiotics) Allergy Intermediate hives 04/21/19 Yes lisinopril Allergy Intermediate hives 04/21/19 Yes Physical Exam Physical Exam Constitutional: Well developed, well nourished, no acute distress, very tearful[] HENT: Normocephalic, atraumatic, bilateral external ears normal, oropharynx moist, no oral exudates, nose normal. [] Eyes: PERRLA, EOMI, conjunctiva normal, no discharge. [] Neck: Normal range of motion, no tenderness, supple, no stridor. [] Cardiovascular:Heart rate regular rhythm, no murmur [] Lungs & Thorax: Bilateral breath sounds clear to auscultation I do not appreciate any significant wheeze [] Abdomen: Bowel sounds normal, soft, no tenderness, no masses, no pulsatile masses. [] Skin: Warm, dry, no erythema, no rash. [] Back: No tenderness, no CVA tenderness. [] Extremities: No tenderness, no cyanosis, no clubbing, ROM intact, no edema. [] Neurologic: Alert and interactive but unable to effectively communicate. [] Psychologic: Tearful affect[] Current Patient Data Vital Signs Vital Signs Date Time Temp Pulse Resp B/P (MAP) Pulse Ox O2 Delivery O2 Flow Rate FiO2 05/02/19 09:33 97.9 24 28 151/82 (105) 96 Room Air 97.9 Lab Values Laboratory Tests Test 05/02/19 09:45 Glucose (Fingerstick) 285 mg/dL (70-99) H EKG EKG [] Radiology/Procedures Radiology/Procedures [] Course & Med Decision Making Course & Med Decision Making Pertinent Labs and Imaging studies reviewed. (See chart for details) [ED course: Evaluation reveals a 43-year-old female who does not appear to be in any acute distress. I reviewed her most recent hospitalization and discharge summary and it appears that she is in better shape today than when she was discharged from the hospital. I believe the patient is safe for discharge home today with close outpatient follow-up given her underlying medical conditions I certainly do not believe hospitalization is ideal for this patient.] Dragon Disclaimer Dragon Disclaimer This electronic medical record was generated, in whole or in part, using a voice recognition dictation system. Departure Departure Impression: Primary Impression: Cough Disposition: 01 HOME, SELF-CARE Condition: STABLE Referrals: REJI CORREA MD (PCP) TIMOTHY GARCIA DO May 02, 2019 10:35
--- NOTE | 2019-05-02 21:09 | EKG ---
[facility] [address] [place] [address] Test Date: 2019-05-02 Test Time: 09:59:42 Pat Name: MARILU MANCIA Department: Room: Gender: F Director Chemistry: : 1975 Requested By: TIMOTHY GARCIA Order Number: [id number] Reading MD: Measurements Intervals [place] Rate: 94 P: -47 FL: 120 QRS: -44 QRSD: 76 T: 56 QT: 338 QTc: 428 Interpretive Statements SINUS RHYTHM ABNORMAL LEFT AXIS DEVIATION QRS(T) CONTOUR ABNORMALITY CONSIDER ANTEROSEPTAL MYOCARDIAL DAMAGE ABNORMAL ECG RI6.01 No previous ECG available for comparison
[2019-05-06] MEDS ORDERED: METO5TAB55 PO (13:54)
== END 2019-05-02 10:49 | disposition home or self-care (01) ==
LOC: ER 09:33
DX: R05 Cough (principal); R50.9 Fever, unspecified; I11.0 Hypertensive heart disease with heart failure; I50.9 Heart failure, unspecified; E11.9 Type 2 diabetes mellitus without complications; I25.10 Atherosclerotic heart disease of native coronary artery without angina pectoris; I25.2 Old myocardial infarction; Z86.73 Personal history of transient ischemic attack (TIA), and cerebral infarction without residual deficits; Z95.5 Presence of coronary angioplasty implant and graft; Z88.2 Allergy status to sulfonamides; Z88.8 Allergy status to other drugs, medicaments and biological substances
CPT/HCPCS: 71045; 82962; 93005; 99284

== ENCOUNTER 2019-05-09 18:22 | Emergency (ER) | payer MEDICAID ==
[~2019-05-09] VITALS: Ht 154.9 cm; Wt 79.5 kg
[~2019-05-09 18:22] MED LIST changes: +METO5TAB55 PO
--- NOTE | 2019-05-09 18:29 | PHYS DOC ---
Past Medical History Past Medical History: CAD, CHF, CVA, Diabetes-Type II, Hypertension, DC, Stroke, Other Additional Past Medical Histor: 3 CARDIAC STENTS, LEFT BREAST CYST, PEG TUBE (JASKARAN TEJEDA APRN) Past Surgical History: Angioplasty, Other Additional Past Surgical Histo: CARDIAC STENTS X'S 3,HEART CATH, PEG TUBE (JASKARAN TEJEDA APRN) Smoking Status: Former Smoker Alcohol Use: None Drug Use: Marijuana (JASKARAN TEJEDA APRN) Attending Signature I have participated in the care of this patient and I have reviewed and agree with all pertinent clinical information above including history, exam, and recommendations. (JACQUELINE RUCKER MD) Adult General HPI HPI Patient is a 43 year old female who presents with shortness of breath that started today. The patient denies cough, denies fever, denies any contact with any positive covid cases. Denies any travel. The patient has a history of MS and diabetes. Complete ROS were reviewed and found to be within normal limits, except as documented in the HPI (JASKARAN TEJEDA APRN) Allergies Allergies Allergies Coded Allergies Type Severity Reaction Last Updated Verified Sulfa (Sulfonamide Antibiotics) Allergy Intermediate hives 04/21/19 Yes lisinopril Allergy Intermediate hives 04/21/19 Yes (JACQUELINE RUCKER MD) Physical Exam Physical Exam Constitutional: Well developed, well nourished, no acute distress, non-toxic appearance. [] HENT: Normocephalic, atraumatic, bilateral external ears normal, oropharynx moist, no oral exudates, nose normal. [] Cardiovascular:Heart rate regular rhythm, no murmur [] Lungs & Thorax: Bilateral breath sounds clear to auscultation [] Neurologic: Alert and oriented X 3, normal motor function, normal sensory function, no focal deficits noted. [] Psychologic: Affect normal, judgement normal, mood normal. [] (JASKARAN TEJEDA APRN) Current Patient Data Vital Signs Vital Signs Date Time Temp Pulse Resp B/P (MAP) Pulse Ox O2 Delivery O2 Flow Rate FiO2 05/09/19 22:14 98.8 94 19 152/86 (108) 98 Room Air 98.8 (JACQUELINE RUCKER MD) Lab Values Laboratory Tests Test 05/09/19 18:40 05/09/19 19:30 05/09/19 20:15 White Blood Count 7.3 x10^3/uL (4.0-11.0) Red Blood Count 3.26 x10^6/uL (3.50-5.40) L Hemoglobin 8.6 g/dL (12.0-15.5) L Hematocrit 26.2 % (36.0-47.0) L Mean Corpuscular Volume 80 fL (79-100) Mean Corpuscular Hemoglobin 26 pg (25-35) Mean Corpuscular Hemoglobin Concent 33 g/dL (31-37) Red Cell Distribution Width 19.0 % (11.5-14.5) H Platelet Count 523 x10^3/uL (140-400) H Neutrophils (%) (Auto) 51 % (31-73) Lymphocytes (%) (Auto) 36 % (24-48) Monocytes (%) (Auto) 9 % (0-9) Eosinophils (%) (Auto) 4 % (0-3) H Basophils (%) (Auto) 1 % (0-3) Neutrophils # (Auto) 3.7 x10^3/uL (1.8-7.7) Lymphocytes # (Auto) 2.6 x10^3/uL (1.0-4.8) Monocytes # (Auto) 0.6 x10^3/uL (0.0-1.1) Eosinophils # (Auto) 0.3 x10^3/uL (0.0-0.7) Basophils # (Auto) 0.1 x10^3/uL (0.0-0.2) Urine Collection Type U cath Urine Color Yellow Urine Clarity Clear Urine pH 6.5 (<5.0-8.0) Urine Specific [place] 1.025 (1.000-1.030) Urine Protein >=300 mg/dL (NEG-TRACE) Urine Glucose (UA) Negative mg/dL (NEG) Urine Ketones (Stick) Trace mg/dL (NEG) Urine Blood Negative (NEG) Urine Nitrite Negative (NEG) Urine Bilirubin Negative (NEG) Urine Urobilinogen Dipstick 1.0 mg/dL (0.2 mg/dL) Urine Leukocyte Esterase Negative (NEG) Urine RBC Occ /HPF (0-2) Urine WBC Occ /HPF (0-4) Urine Squamous Epithelial Cells Mod /LPF Urine Bacteria 0 /HPF (0-FEW) Urine Mucus Mod /LPF Urine Test Negative (NEG) Urine Opiates Screen Neg (NEG) Urine Methadone Screen Neg (NEG) Urine Barbiturates Neg (NEG) Urine Phencyclidine Screen Neg (NEG) Urine Amphetamine/Methamphetamine Neg (NEG) Urine Benzodiazepines Screen Neg (NEG) Urine Cocaine Screen Neg (NEG) Urine Cannabinoids Screen Neg (NEG) Urine Ethyl Alcohol Neg (NEG) Sodium Level 136 mmol/L (136-145) Potassium Level 4.1 mmol/L (3.5-5.1) Chloride Level 99 mmol/L (98-107) Carbon Dioxide Level 24 mmol/L (21-32) Anion Gap 13 (6-14) Blood Urea Nitrogen 15 mg/dL (7-20) Creatinine 0.9 mg/dL (0.6-1.0) Estimated GFR (Cockcroft-Gault) 81.9 BUN/Creatinine Ratio 17 (6-20) Glucose Level 87 mg/dL (70-99) Calcium Level 10.0 mg/dL (8.5-10.1) Total Bilirubin 0.2 mg/dL (0.2-1.0) Aspartate Amino Transferase (AST) 26 U/L (15-37) Alanine Aminotransferase (ALT) 18 U/L (14-59) Alkaline Phosphatase 89 U/L (46-116) Troponin I Quantitative < 0.017 ng/mL (0.000-0.055) SY-Qqp-[id number]-Type Natriuretic Peptide 405 pg/mL (0-124) H Total Protein 9.2 g/dL (6.4-8.2) H Albumin 3.1 g/dL (3.4-5.0) L Albumin/Globulin Ratio 0.5 (1.0-1.7) L Lipase 719 U/L (73-393) H Ethyl Alcohol Level < 10 mg/dL (0-10) Laboratory Tests 05/09/19 18:40 Laboratory Tests 05/09/19 20:15 (JACQUELINE RUCKER MD) Lab Values Laboratory Tests Test 05/09/19 18:40 05/09/19 19:30 05/09/19 20:15 White Blood Count 7.3 x10^3/uL (4.0-11.0) Red Blood Count 3.26 x10^6/uL (3.50-5.40) L Hemoglobin 8.6 g/dL (12.0-15.5) L Hematocrit 26.2 % (36.0-47.0) L Mean Corpuscular Volume 80 fL (79-100) Mean Corpuscular Hemoglobin 26 pg (25-35) Mean Corpuscular Hemoglobin Concent 33 g/dL (31-37) Red Cell Distribution Width 19.0 % (11.5-14.5) H Platelet Count 523 x10^3/uL (140-400) H Neutrophils (%) (Auto) 51 % (31-73) Lymphocytes (%) (Auto) 36 % (24-48) Monocytes (%) (Auto) 9 % (0-9) Eosinophils (%) (Auto) 4 % (0-3) H Basophils (%) (Auto) 1 % (0-3) Neutrophils # (Auto) 3.7 x10^3/uL (1.8-7.7) Lymphocytes # (Auto) 2.6 x10^3/uL (1.0-4.8) Monocytes # (Auto) 0.6 x10^3/uL (0.0-1.1) Eosinophils # (Auto) 0.3 x10^3/uL (0.0-0.7) Basophils # (Auto) 0.1 x10^3/uL (0.0-0.2) Urine Collection Type U cath Urine Color Yellow Urine Clarity Clear Urine pH 6.5 (<5.0-8.0) Urine Specific [place] 1.025 (1.000-1.030) Urine Protein >=300 mg/dL (NEG-TRACE) Urine Glucose (UA) Negative mg/dL (NEG) Urine Ketones (Stick) Trace mg/dL (NEG) Urine Blood Negative (NEG) Urine Nitrite Negative (NEG) Urine Bilirubin Negative (NEG) Urine Urobilinogen Dipstick 1.0 mg/dL (0.2 mg/dL) Urine Leukocyte Esterase Negative (NEG) Urine RBC Occ /HPF (0-2) Urine WBC Occ /HPF (0-4) Urine Squamous Epithelial Cells Mod /LPF Urine Bacteria 0 /HPF (0-FEW) Urine Mucus Mod /LPF Urine Test Negative (NEG) Urine Opiates Screen Neg (NEG) Urine Methadone Screen Neg (NEG) Urine Barbiturates Neg (NEG) Urine Phencyclidine Screen Neg (NEG) Urine Amphetamine/Methamphetamine Neg (NEG) Urine Benzodiazepines Screen Neg (NEG) Urine Cocaine Screen Neg (NEG) Urine Cannabinoids Screen Neg (NEG) Urine Ethyl Alcohol Neg (NEG) Sodium Level 136 mmol/L (136-145) Potassium Level 4.1 mmol/L (3.5-5.1) Chloride Level 99 mmol/L (98-107) Carbon Dioxide Level 24 mmol/L (21-32) Anion Gap 13 (6-14) Blood Urea Nitrogen 15 mg/dL (7-20) Creatinine 0.9 mg/dL (0.6-1.0) Estimated GFR (Cockcroft-Gault) 81.9 BUN/Creatinine Ratio 17 (6-20) Glucose Level 87 mg/dL (70-99) Calcium Level 10.0 mg/dL (8.5-10.1) Total Bilirubin 0.2 mg/dL (0.2-1.0) Aspartate Amino Transferase (AST) 26 U/L (15-37) Alanine Aminotransferase (ALT) 18 U/L (14-59) Alkaline Phosphatase 89 U/L (46-116) Troponin I Quantitative < 0.017 ng/mL (0.000-0.055) DU-Weh-Y-Type Natriuretic Peptide 405 pg/mL (0-124) H Total Protein 9.2 g/dL (6.4-8.2) H Albumin 3.1 g/dL (3.4-5.0) L Albumin/Globulin Ratio 0.5 (1.0-1.7) L Lipase 719 U/L (73-393) H Ethyl Alcohol Level < 10 mg/dL (0-10) Laboratory Tests 05/09/19 18:40 Laboratory Tests 05/09/19 20:15 (JASKARAN TEJEDA APRN) EKG EKG [] (JASKARAN TEJEDA APRN) Radiology/Procedures Radiology/Procedures [] (JASKARAN TEJEDA APRN) Course & Med Decision Making Course & Med Decision Making Pertinent Labs and Imaging studies reviewed. (See chart for details) We will get a CT of the chest to rule out bilateral pneumonia and glasslike opacities. Will also get EKG, and labs. CT of the chest shows right sided middle pneumonia. White blood cell are unr emarkable, hemoglobin is at baseline, lipase is elevated at 793 however patient was recently admitted for pancreatitis and is half what it was when she was discharged several days ago. We will put the patient on doxycycline and discharged home. I will also have the patient self isolate at home for 14 days. (JASKARAN TEJEDA APRN) Dragon Disclaimer Dragon Disclaimer This electronic medical record was generated, in whole or in part, using a voice recognition dictation system. (JASKARAN TEJEDA APRN) Departure Departure Impression: Primary Impression: Pneumonia Additional Impression: Suspected 2019-nCoV infection Disposition: HOME, SELF-CARE Condition: STABLE Referrals: REJI CORREA MD (PCP) Patient Instructions: Pneumonia, Adult Additional Instructions: Thank you for visiting [facility]. We appreciate you trusting us with your care. If any additional problems come up don't hesitate to return to visit us. Please follow up with your primary care provider so they can plan additional care if needed and know about the problem that you had. If symptoms worsen come back to the Emergency Department. Any concerning symptoms that start such as chest pain, shortness of air, weakness or numbness on one side of the body, running high fevers or any other concerning symptoms return to the ER. You have a viral syndrome which may include symptoms like muscle aches, fevers, chills, runny nose, cough, sneezing, sore throat, vomiting, or diarrhea. One of the potential viruses that you may have is SARS-CoV-2, the virus that causes COVID-19, also known as the Coronavirus. You are just as likely to have a different viral infection such as the common cold, flu, etc. Most patients with the Coronavirus have mild symptoms and recover on their own. Resting, staying hydrated, and sleep from known cases can be helpful. As of todays visit, you are well enough to go home and treat your symptoms with oral fluids and over the counter medications. Coronavirus testing is not performed on most people with mild symptoms who are being discharged from the emergency department. If Coronavirus testing was performed the results will not be available for possibly up to 2-3 days. If your result is positive you will be contacted. Please follow the following precautions at home: 1) Stay home except to get medical care. 2) As advised by the CDC we recommend you stay in your home and minimize contact with other people. We do not want you to spread the infection. 3) Those who are older or have significant medical issues may have more severe symptoms from this infection. We recommend self-isolation,FOR AT LEAST 7 DAYS after your 1st day of symptoms. AFTER you feel better please wait AT LEAST ANOTHER WEEK before returning to regular activities and being around other people! 4) IF you become sicker and have difficulty breathing, chest pain, unable to eat/drink, severe vomiting, diarrhea, or weakness you may need to return to the Emergency Department. 5) You should restrict activities outside your home, except for getting medical care. DO NOT go to work, school, or public areas. Avoid using public transportation, ride sharing, or taxis. 6) Separate yourself from other people in your home. You should use a separate bathroom if possible. 7) Avoid sharing personal household items such as dishes, cups, eating utensils, towels, etc. 8) Clean all high touch surfaces every day (door knobs, counter tops, etc). Use a household cleaning spray or wipe per label instructions. 9) Clean your hands often. Wash your hands with soap and water for at least 20 seconds. 10) Cover your mouth and nose with a tissue when you cough or sneeze. 11) Throw used tissues in a trash can and immediately wash your hands. For additional resources please visit the CDC website or the [facility] ([phone]). You have been prescribed an antibiotic today to help fight your infection. Please take all of the antibiotic as directed. If after 48 hours the infection is not improving, please return for more care. If the infection worsens, return to ER for additional care. Scripts Doxycycline Hyclate (DOXYCYCLINE HYCLATE) 100 Mg Capsule 1 CAP PO BID for 10 Days, #20 CAP Prov: JASKARAN TEJEDA APRN 05/09/19 Problem Qualifiers Primary Impression: Pneumonia Pneumonia type: due to unspecified organism Laterality: right Lung location: middle lobe of lung Qualified Codes: J18.9 - Pneumonia, unspecified organism JASKARAN TEJEDA APRN May 09, 2019 18:29 JACQUELINE RUCKER MD May 09, 2019 23:19
[2019-05-09 18:52] LABS: BASO # 0.1 x10^3/uL (0.0-0.2); BASO % 1 % (0-3); EOS # 0.3 x10^3/uL (0.0-0.7); EOS % 4 % (0-3); HEMATOCRIT 26.2 % (36.0-47.0); HEMOGLOBIN 8.6 g/dL (12.0-15.5); LYMPH # 2.6 x10^3/uL (1.0-4.8); LYMPH % 36 % (24-48); MEAN CORPUSCULAR HEMOGLOBIN 26 pg (25-35); MEAN CORPUSCULAR HGB CONC 33 g/dL (31-37); MEAN CORPUSCULAR VOLUME 80 fL (79-100); MONO # 0.6 x10^3/uL (0.0-1.1); MONO % 9 % (0-9); NEUT # 3.7 x10^3/uL (1.8-7.7); NEUT % 51 % (31-73); PLATELET COUNT 523 x10^3/uL (140-400); RED BLOOD COUNT 3.26 x10^6/uL (3.50-5.40); WHITE BLOOD COUNT 7.3 x10^3/uL (4.0-11.0)
[2019-05-09 19:39] LABS: BILIRUBIN,URINE NEGATIVE (NEG); CLARITY,URINE CLEAR; COLOR,URINE YELLOW; NITRITE,URINE NEGATIVE (NEG); PH,URINE 6.5 (<5.0-8.0); PROTEIN,URINE >=300 mg/dL (NEG-TRACE)
[2019-05-09 19:44] LABS: BACTERIA,URINE 0 /HPF (0-FEW); RBC,URINE OCC /HPF (0-2); SQUAMOUS EPITHELIAL CELL,UR MOD /LPF; WBC,URINE OCC /HPF (0-4)
[2019-05-09 19:46] LABS: AMPHETAMINE/METHAMPHETAMINE NEG (NEG); BARBITURATES NEG (NEG); BENZODIAZEPINES NEG (NEG); CANNABINOIDS NEG (NEG); COCAINE NEG (NEG); METHADONE NEG (NEG); OPIATES NEG (NEG); PHENCYCLIDINE NEG (NEG)
[2019-05-09 20:43] LABS: CREATININE 0.9 mg/dL (0.6-1.0); GFR 81.9; POTASSIUM 4.1 mmol/L (3.5-5.1)
[2019-05-09 20:47] LABS: U PREG PATIENT NEGATIVE (NEG)
[2019-05-09 20:48] LABS: ALBUMIN 3.1 g/dL (3.4-5.0); ALBUMIN/GLOBULIN RATIO 0.5 (1.0-1.7); TOTAL BILIRUBIN 0.2 mg/dL (0.2-1.0); TOTAL PROTEIN 9.2 g/dL (6.4-8.2)
--- NOTE | 2019-05-09 20:57 | EKG ---
[facility] [address] [place] [address] Test Date: 2019-05-09 Test Time: 18:37:06 Pat Name: MARILU MANCIA Department: Room: Gender: F Client Services Analyst: : 1975 Requested By: JASKARAN TEJEDA Order Number: [id number] Reading MD: Measurements Intervals [place] Rate: 96 P: 0 NC: 116 QRS: 47 QRSD: 84 T: 28 QT: 336 QTc: 425 Interpretive Statements SINUS RHYTHM NO SPECIFIC ECG ABNORMALITIES RI6.01 No previous ECG available for comparison
--- NOTE | 2019-05-09 21:18 | RAD ---
Exam: CT of chest without contrast INDICATION: Soreness of breath TECHNIQUE: Sequential axial images through the chest obtained without IV contrast. Sagittal and coronal reformatted images were reconstructed from the axial data and reviewed. Comparisons: None FINDINGS: Visualized portions of the thyroid are unremarkable. No enlarged mediastinal lymph nodes are identified. Heart size is normal. No pericardial effusion. Thoracic aorta has a normal course and caliber. Pulmonary artery is not enlarged. Airways are patent. There is consolidative changes in the right middle lobe. No pneumothorax. No suspicious lung nodules. Small right-sided pleural effusion. Percutaneous enteric tube noted within the stomach. Otherwise, visualized upper abdomen is unremarkable. No suspicious osseous lesions or acute fractures. IMPRESSION: Consolidative changes in the right middle lobe favored represent pneumonia. Exposure: One or more of the following in the visualized dose reduction techniques were utilized for this examination: 1. Automated exposure control 2. Adjustment of the MA and/or KV according to patient size 3. Use of iterative of reconstructive technique Electronically signed by: Jodie Dalton MD (05/09/2019 9:15 PM) [id number]
[2019-05-09] MEDS ORDERED: DOXY100C2 PO (21:41)
[2019-05-09 22:14] VITALS: BP 152/86
== END 2019-05-09 22:10 | disposition home or self-care (01) ==
LOC: ER 18:22
DX: Z20.828 Contact with and (suspected) exposure to other viral communicable diseases (principal); J18.9 Pneumonia, unspecified organism; I11.0 Hypertensive heart disease with heart failure; I50.9 Heart failure, unspecified; E11.9 Type 2 diabetes mellitus without complications; I25.10 Atherosclerotic heart disease of native coronary artery without angina pectoris; I25.2 Old myocardial infarction; Z86.73 Personal history of transient ischemic attack (TIA), and cerebral infarction without residual deficits; Z87.891 Personal history of nicotine dependence; Z95.5 Presence of coronary angioplasty implant and graft; Z88.2 Allergy status to sulfonamides; Z88.8 Allergy status to other drugs, medicaments and biological substances
CPT/HCPCS: 36415; 71250; 80053; 80307; 81001; 81025; 83690; 83880; 84484; 85025; 93005; 99285; G0480

== ENCOUNTER 2019-06-17 19:02 | Emergency (ER) | payer MEDICAID ==
[~2019-06-17] VITALS: Ht 162.6 cm; Wt 63.6 kg
[~2019-06-17 19:02] MED LIST changes: +DOXY100C2 PO
--- NOTE | 2019-06-17 19:27 | PHYS DOC ---
Past Medical History Past Medical History: CAD, CHF, CVA, Diabetes-Type II, Hypertension, [place], Stroke, Other Additional Past Medical Histor: 3 CARDIAC STENTS, LEFT BREAST CYST, PEG TUBE Past Surgical History: Angioplasty, Other Additional Past Surgical Histo: CARDIAC STENTS X'S 3,HEART CATH, PEG TUBE Smoking Status: Former Smoker Alcohol Use: None Drug Use: Marijuana General Adult EDM: Chief Complaint: EARACHE/EAR PAIN HPI: HPI: Patient is a 43 year old female who presents with bilateral ear pain. She denies any fevers. She denies any other symptoms. History is limited secondary to patient's learning disability. Review of Systems: Review of Systems: General: Denies fever, chills, sweats, fatigue Eyes: Denies drainage, blurred vision HENT: Denies rhinorrhea, sore throat reports ear pain Respiratory: Denies cough, shortness of breath, wheezing Cardiac: Denies edema, palpitations, chest pain GI: Denies abdominal pain, N/V MSK: Denies back pain, neck pain Skin: Denies rash, jaundice Neuro: Denies headache, dizziness Psychiatric: Denies SI/HI Heart Score: Risk Factors: Risk Factors: DM, Current or recent (<one month) smoker, HTN, HLP, family history of CAD, obesity. Risk Scores: Score 0 - 3: 2.5% MACE over next 6 weeks - Discharge Home Score 4 - 6: 20.3% MACE over next 6 weeks - Admit for Clinical Observation Score 7 - 10: 72.7% MACE over next 6 weeks - Early Invasive Strategies Allergies: Allergies: Allergies Coded Allergies Type Severity Reaction Last Updated Verified Sulfa (Sulfonamide Antibiotics) Allergy Intermediate hives 04/21/19 Yes lisinopril Allergy Intermediate hives 04/21/19 Yes Physical Exam: PE: Constitutional: Well developed, well nourished, Cooperative, NAD, non-toxic appearing HEENT: Normocephalic, atraumatic, oropharynx moist, EOMI, PERRL, no drainage from eyes, normal conjunctiva, right TM erythematous, no bulging TMs bilaterally Neck: Supple, normal range of motion, no stridor Cardiovascular: RRR, 2+ radial pulses bilaterally, no edema Respiratory: CTA bilaterally, no respiratory distress, no wheezing/crackles Abdomen: Soft, nontender, nondistended, no masses Skin: Warm, dry, intact Extremities: No obvious deformities Neurologic: Alert and Oriented x3, motor and sensory function grossly normal, no focal deficits Psychologic: Normal affect, normal judgment, normal mood. No SI/HI Current Patient Data: Vital Signs: Vital Signs Date Time Temp Pulse Resp B/P (MAP) Pulse Ox O2 Delivery O2 Flow Rate FiO2 06/17/19 19:02 97.8 89 16 127/81 (96) 99 Room Air 97.8 EKG: EKG: [] Radiology/Procedures: Radiology/Procedures: [] Course & Med Decision Making: Course & Med Decision Making Pertinent Labs and Imaging studies reviewed. (See chart for details) Patient is a 43-year-old female who presents to the emergency room complaining of bilateral ear pain. Patient does appear to have an ear infection on the right side. She will be placed on amoxicillin. She is requesting pain medicine. I discussed with her that she should take ibuprofen at home. She is very well-appearing. Vitals are normal. Patient's test results and vitals while in the ED were fully reviewed and discussed with the patient. Patient is stable and at this time does not need admission to the hospital. We have discussed strict return precautions and the importance of following up with their Primary Care Physician. Patient stated understanding and was given an opportunity to ask any questions. Digna Disclaimer: Digna Disclaimer: This electronic medical record was generated, in whole or in part, using a voice recognition dictation system. Departure Departure Condition: STABLE Referrals: REJI CORREA MD (PCP) Scripts Amoxicillin (AMOXICILLIN) 500 Mg Capsule 1 CAP PO Q8HRS for infection for 7 Days, #21 CAP Prov: BHUPENDRA MORALES MD 06/17/19 BHUPENDRA MORALES MD Jun 17, 2019 19:27
[2019-06-17] MEDS ORDERED: AMOX500C PO (19:35)
[2019-06-17 19:52] VITALS: BP 111/81
== END 2019-06-17 20:15 | disposition home or self-care (01) ==
LOC: ER 19:02
DX: H92.03 Otalgia, bilateral (principal); I11.0 Hypertensive heart disease with heart failure; I50.9 Heart failure, unspecified; Z86.73 Personal history of transient ischemic attack (TIA), and cerebral infarction without residual deficits; I25.10 Atherosclerotic heart disease of native coronary artery without angina pectoris; I25.2 Old myocardial infarction; E11.9 Type 2 diabetes mellitus without complications; Z95.5 Presence of coronary angioplasty implant and graft; Z87.891 Personal history of nicotine dependence; Z88.2 Allergy status to sulfonamides; Z88.8 Allergy status to other drugs, medicaments and biological substances
CPT/HCPCS: 99284

== ENCOUNTER 2019-07-24 21:45 | Emergency (ER) | payer MEDICAID ==
[~2019-07-24] VITALS: Ht 170.2 cm; Wt 75.0 kg
[~2019-07-24 21:45] MED LIST changes: +AMOX500C PO
[2019-07-24] MEDS ORDERED: DEXTROSE 50% 25 GM / 50ML DISP.SYRIN. IV ONE ×2 (22:04→22:05)
[2019-07-24 22:47] LABS: BASO # 0.1 x10^3/uL (0.0-0.2); BASO % 1 % (0-3); EOS # 0.3 x10^3/uL (0.0-0.7); EOS % 4 % (0-3); HEMATOCRIT 29.6 % (36.0-47.0); HEMOGLOBIN 9.8 g/dL (12.0-15.5); LYMPH # 1.1 x10^3/uL (1.0-4.8); LYMPH % 13 % (24-48); MEAN CORPUSCULAR HEMOGLOBIN 27 pg (25-35); MEAN CORPUSCULAR HGB CONC 33 g/dL (31-37); MEAN CORPUSCULAR VOLUME 82 fL (79-100); MONO # 0.8 x10^3/uL (0.0-1.1); MONO % 10 % (0-9); NEUT # 5.8 x10^3/uL (1.8-7.7); NEUT % 72 % (31-73); PLATELET COUNT 336 x10^3/uL (140-400); RED BLOOD COUNT 3.62 x10^6/uL (3.50-5.40); RED CELL DISTRIBUTION WIDTH 21.6 % (11.5-14.5); WHITE BLOOD COUNT 8.1 x10^3/uL (4.0-11.0)
[2019-07-24 22:54] LABS: CALCIUM 8.4 mg/dL (8.5-10.1); CREATININE 1.1 mg/dL (0.6-1.0); GFR 64.7; POTASSIUM 3.6 mmol/L (3.5-5.1)
[2019-07-24 23:00] LABS: ALBUMIN 2.9 g/dL (3.4-5.0); ALBUMIN/GLOBULIN RATIO 0.7 (1.0-1.7); TOTAL BILIRUBIN 0.1 mg/dL (0.2-1.0); TOTAL PROTEIN 7.1 g/dL (6.4-8.2)
[2019-07-24] MEDS ORDERED: ACETAMINOPHEN 650 MG/20.3 ML SOLUTION. PEG ONE (23:30)
[2019-07-24 23:36] LABS: PLT ESTIMATE ADEQUATE (ADEQUATE)
[2019-07-24 23:37] LABS: MICROCYTOSIS SLIGHT
--- NOTE | 2019-07-25 01:18 | PHYS DOC ---
Past Medical History Past Medical History: CAD, CHF, CVA, Diabetes-Type II, Hypertension, [place], Stroke, Other Additional Past Medical Histor: 3 CARDIAC STENTS, LEFT BREAST CYST, PEG TUBE Past Surgical History: Angioplasty, Other Additional Past Surgical Histo: CARDIAC STENTS X'S 3,HEART CATH, PEG TUBE Smoking Status: Former Smoker Alcohol Use: None Drug Use: Marijuana General Adult EDM: Chief Complaint: HYPOGLYCEMIA HPI: HPI: Patient is a 44 year old female brought to ER with a chief complaint of hypoglycemia. EMS state that patient's initial blood glucose was 42. Patient was given oral glucose and the patient's blood glucose was 49. Patient does have a PEG tube. Patient is alert she has a history of insulin-dependent diabetes. Currently patient is alert and answering questions. Review of Systems: Review of Systems: Constitutional: Denies fever or chills. [] Eyes: Denies change in visual acuity. [] HENT: Denies nasal congestion or sore throat. [] Respiratory: Denies cough or shortness of breath. [] Cardiovascular: Denies chest pain or edema. [] GI: Denies abdominal pain, nausea, vomiting, bloody stools or diarrhea. [] Neurologic: Denies headache, focal weakness or sensory changes. [] Heart Score: Risk Factors: Risk Factors: DM, Current or recent (<one month) smoker, HTN, HLP, family history of CAD, obesity. Risk Scores: Score 0 - 3: 2.5% MACE over next 6 weeks - Discharge Home Score 4 - 6: 20.3% MACE over next 6 weeks - Admit for Clinical Observation Score 7 - 10: 72.7% MACE over next 6 weeks - Early Invasive Strategies Current Medications: Current Medications Medications (Trade) Dose Ordered Sig/[facility] Start Time Stop Time Status Last Admin Dose Admin Acetaminophen (Tylenol) 650 mg 1X ONCE 07/24/19 23:30 07/24/19 23:31 DC 07/24/19 23:21 650 MG Dextrose (Dextrose 50%-Water Syringe) 25 gm STK-MED ONCE 07/24/19 22:05 07/24/19 22:05 DC Allergies: Allergies: Allergies Coded Allergies Type Severity Reaction Last Updated Verified Sulfa (Sulfonamide Antibiotics) Allergy Intermediate hives 04/21/19 Yes lisinopril Allergy Intermediate hives 04/21/19 Yes Physical Exam: PE: Constitutional: Well developed, well nourished, no acute distress, non-toxic appearance. [] HENT: Normocephalic, atraumatic Eyes: EOMI Neck: Normal range of motion, Supple Cardiovascular: Heart rate regular rhythm Lungs & Thorax: Bilateral breath sounds clear to auscultation [] Abdomen: Bowel sounds normal, soft, no tenderness, PEG tube in place Extremities: No tenderness, ROM intact Neurologic: Alert and oriented X 3 Current Patient Data: Labs: Laboratory Tests Test 07/24/19 22:20 07/24/19 22:40 07/24/19 23:28 07/25/19 00:19 Glucose (Fingerstick) 158 mg/dL (70-99) H 198 mg/dL (70-99) H 220 mg/dL (70-99) H White Blood Count 8.1 x10^3/uL (4.0-11.0) Red Blood Count 3.62 x10^6/uL (3.50-5.40) Hemoglobin 9.8 g/dL (12.0-15.5) L Hematocrit 29.6 % (36.0-47.0) L Mean Corpuscular Volume 82 fL (79-100) Mean Corpuscular Hemoglobin 27 pg (25-35) Mean Corpuscular Hemoglobin Concent 33 g/dL (31-37) Red Cell Distribution Width 21.6 % (11.5-14.5) H Platelet Count 336 x10^3/uL (140-400) Neutrophils (%) (Auto) 72 % (31-73) Lymphocytes (%) (Auto) 13 % (24-48) L Monocytes (%) (Auto) 10 % (0-9) H Eosinophils (%) (Auto) 4 % (0-3) H Basophils (%) (Auto) 1 % (0-3) Neutrophils # (Auto) 5.8 x10^3/uL (1.8-7.7) Lymphocytes # (Auto) 1.1 x10^3/uL (1.0-4.8) Monocytes # (Auto) 0.8 x10^3/uL (0.0-1.1) Eosinophils # (Auto) 0.3 x10^3/uL (0.0-0.7) Basophils # (Auto) 0.1 x10^3/uL (0.0-0.2) Platelet Estimate Adequate (ADEQUATE) Microcytosis Slight Macrocytosis Slight Sodium Level 138 mmol/L (136-145) Potassium Level 3.6 mmol/L (3.5-5.1) Chloride Level 104 mmol/L (98-107) Carbon Dioxide Level 25 mmol/L (21-32) Anion Gap 9 (6-14) Blood Urea Nitrogen 14 mg/dL (7-20) Creatinine 1.1 mg/dL (0.6-1.0) H Estimated GFR (Cockcroft-Gault) 64.7 BUN/Creatinine Ratio 13 (6-20) Glucose Level 233 mg/dL (70-99) H Calcium Level 8.4 mg/dL (8.5-10.1) L Total Bilirubin 0.1 mg/dL (0.2-1.0) L Aspartate Amino Transferase (AST) 111 U/L (15-37) H Alanine Aminotransferase (ALT) 87 U/L (14-59) H Alkaline Phosphatase 107 U/L (46-116) Total Protein 7.1 g/dL (6.4-8.2) Albumin 2.9 g/dL (3.4-5.0) L Albumin/Globulin Ratio 0.7 (1.0-1.7) L Laboratory Tests 07/24/19 22:40 Laboratory Tests 07/24/19 22:40 Vital Signs: Vital Signs Date Time Temp Pulse Resp B/P (MAP) Pulse Ox O2 Delivery O2 Flow Rate FiO2 07/25/19 00:14 85 20 145/85 (105) 98 Room Air 07/24/19 21:49 97.9 97.9 EKG: EKG: [] Radiology/Procedures: Radiology/Procedures: [] Course & Med Decision Making: Course & Med Decision Making Pertinent Labs reviewed. (See chart for details) Patient was given 1 amp of D50. Patient glucose was not measured at 220. Patient was also given apple juice throughout that day. Multiple blood glucose checks have been on the patient. Patient blood glucose has been in the 200s. Patient's last glucose was 220. Patient stable to be discharged home. Discussed results and plan of care with patient. Patient is instructed to follow up with PCP in one to 2 days. Appropriate discharge instructions given to patient to return to the ED or to seek immediate medical evaluation. Patient is instructed to return to the ED if symptoms worsen or if any concerns. Dragon Disclaimer: Dragon Disclaimer: This electronic medical record was generated, in whole or in part, using a voice recognition dictation system. Departure Departure Impression: Primary Impression: Hypoglycemia Disposition: HOME, SELF-CARE Condition: IMPROVED Referrals: REJI CORREA MD (PCP) Patient Instructions: Hypoglycemia (Low Blood Sugar) Additional Instructions: Please follow-up with PCP in 1 to 2 days. Please return to the ED if symptoms worsen or if any concerns. Justicifation of Admission Dx: Justifications for Admission: Justification of Admission Dx: MAYELA Zeng DO Jul 25, 2019 01:18
[2019-07-25 01:44] VITALS: BP 133/82
== END 2019-07-25 02:05 | disposition home or self-care (01) ==
LOC: ER 21:45
DX: E11.649 Type 2 diabetes mellitus with hypoglycemia without coma (principal); I11.0 Hypertensive heart disease with heart failure; I50.9 Heart failure, unspecified; I25.2 Old myocardial infarction; F12.90 Cannabis use, unspecified, uncomplicated; Z90.89 Acquired absence of other organs; Z98.890 Other specified postprocedural states; Z86.73 Personal history of transient ischemic attack (TIA), and cerebral infarction without residual deficits; Z88.2 Allergy status to sulfonamides; Z88.6 Allergy status to analgesic agent
CPT/HCPCS: 36415; 80053; 82962; 85025; 99285

== ENCOUNTER 2019-09-13 17:19 | Emergency (ER) | payer MEDICAID ==
[~2019-09-13] VITALS: Ht 170.2 cm; Wt 61.3 kg
[2019-09-13] MEDS ORDERED: MORPHINE SULFATE 4 MG/ML VIAL. IV ONE (18:00)
--- NOTE | 2019-09-13 18:19 | RAD ---
CLINICAL HISTORY: RLE pain and swelling COMPARISON: None available. TECHNIQUE: Ultrasound evaluation of the right lower extremity was performed from the groin to the upper calf with leos scale, spectral and color doppler evaluation. FINDINGS: The common femoral vein, and femoral vein, including the saphenous-femoral junction are normal in appearance. Color and spectral Doppler evaluation demonstrates normal spontaneous flow, augmentation and phasicity. The popliteal vein and visualized calf veins also demonstrate normal compressibility and flow. IMPRESSION: No evidence for DVT in the right lower extremity Electronically signed by: Levon Art MD (09/13/2019 6:16 PM) REILLY
--- NOTE | 2019-09-13 18:25 | PHYS DOC ---
Past Medical History Past Medical History: CAD, CHF, CVA, Diabetes-Type II, Hypertension, [place], Stroke, Other Additional Past Medical Histor: 3 CARDIAC STENTS, LEFT BREAST CYST, PEG TUBE Past Surgical History: Angioplasty, Other Additional Past Surgical Histo: CARDIAC STENTS X'S 3,HEART CATH, PEG TUBE Smoking Status: Former Smoker Alcohol Use: None Drug Use: Marijuana General Adult EDM: Chief Complaint: LOWER EXT PAIN HPI: HPI: The history was obtained from the patient daughter. Patient is a 44 with PMH coronary artery disease, stroke, hypertension, hyperlipidemia who presents with a chief complaint of right leg pain. Patient states she has had gradual onset right leg pain for the past week. She denies any traumas or injury. She denies any falls. She states she is able to ambulate although is painful. She notes increased unilateral swelling on the right. Denies any history of known blood clot to the leg she states. She states she does not take any blood thinners. She denies any abdominal pain or back pain. Denies any chest pain or shortness of breath. She denies any syncope. She denies any skin discoloration to the right lower extremity. She denies any joint discomfort. She states it is more painful when she tries to ambulate or lift her leg. She denies any history of peripheral arterial disease. No other complaints at this time. Review of Systems: Review of Systems: Constitutional: Denies fever or chills. [] Eyes: Denies change in visual acuity. [] HENT: Denies nasal congestion or sore throat. [] Respiratory: Denies cough or shortness of breath. [] Cardiovascular: Denies chest pain or edema. [] GI: Denies abdominal pain, nausea, vomiting, bloody stools or diarrhea. [] : Denies dysuria. [] Musculoskeletal: Leg pain Integument: Denies rash. [] Neurologic: Denies headache, focal weakness or sensory changes. [] Endocrine: Denies polyuria or polydipsia. [] Lymphatic: Denies swollen glands. [] Psychiatric: Denies depression or anxiety. [] Heart Score: Risk Factors: Risk Factors: DM, Current or recent (<one month) smoker, HTN, HLP, family history of CAD, obesity. Risk Scores: Score 0 - 3: 2.5% MACE over next 6 weeks - Discharge Home Score 4 - 6: 20.3% MACE over next 6 weeks - Admit for Clinical Observation Score 7 - 10: 72.7% MACE over next 6 weeks - Early Invasive Strategies Current Medications: Current Medications Medications (Trade) Dose Ordered Sig/Payton Start Time Stop Time Status Last Admin Dose Admin Morphine Sulfate (Morphine Sulfate) 4 mg 1X ONCE 09/13/19 18:00 09/13/19 18:01 DC Allergies: Allergies: Allergies Coded Allergies Type Severity Reaction Last Updated Verified Sulfa (Sulfonamide Antibiotics) Allergy Intermediate hives 04/21/19 Yes lisinopril Allergy Intermediate hives 04/21/19 Yes Physical Exam: PE: Constitutional: Well developed, well nourished, no acute distress, non-toxic appearance. [] HENT: Normocephalic, atraumatic, bilateral external ears normal, oropharynx moist, no oral exudates, nose normal. [] Eyes: PERRLA, EOMI, conjunctiva normal, no discharge. [] Neck: Normal range of motion, no tenderness, supple, no stridor. [] Cardiovascular:Heart rate regular rhythm, no murmur [] Lungs & Thorax: Bilateral breath sounds clear to auscultation [] Abdomen: Bowel sounds normal, soft, no tenderness, no masses, no pulsatile masses. [] Skin: Warm, dry, no erythema, no rash. [] Back: No tenderness, no CVA tenderness. [] Extremities: Lower extremities with right unilateral +1/4 pitting edema. Strong dopplerable DP pulse on the right. Skin warm to touch. No crepitus appreciated. Lower extremity compartments are soft bilaterally. Full range of motion of the right lower extremity without difficulty. +5 strength. No overlying erythema or induration appreciated. +2/4 femoral pulse bilaterally. Neurologic: Alert and oriented X 3, normal motor function, normal sensory function, no focal deficits noted. [] Psychologic: Affect normal, judgement normal, mood normal. [] Current Patient Data: Labs: Laboratory Tests Test 09/13/19 19:15 White Blood Count 8.0 x10^3/uL Red Blood Count 3.44 x10^6/uL Hemoglobin 9.5 g/dL Hematocrit 28.4 % Mean Corpuscular Volume 83 fL Mean Corpuscular Hemoglobin 28 pg Mean Corpuscular Hemoglobin Concent 34 g/dL Red Cell Distribution Width 19.7 % Platelet Count 307 x10^3/uL Neutrophils (%) (Auto) 40 % Lymphocytes (%) (Auto) 25 % Monocytes (%) (Auto) 7 % Eosinophils (%) (Auto) 26 % Basophils (%) (Auto) 1 % Neutrophils # (Auto) 3.2 x10^3/uL Lymphocytes # (Auto) 2.0 x10^3/uL Monocytes # (Auto) 0.6 x10^3/uL Eosinophils # (Auto) 2.1 x10^3/uL Basophils # (Auto) 0.1 x10^3/uL Segmented Neutrophils % 48 % Lymphocytes % 27 % Monocytes % 5 % Eosinophils % 20 % Platelet Estimate Adequate Polychromasia Slight Hypochromasia Slight Anisocytosis Slight Prothrombin Time 13.3 SEC Prothromb Time International Ratio 1.1 Activated Partial Thromboplast Time 31 SEC Sodium Level 137 mmol/L Potassium Level 4.2 mmol/L Chloride Level 103 mmol/L Carbon Dioxide Level 27 mmol/L Anion Gap 7 Blood Urea Nitrogen 15 mg/dL Creatinine 0.9 mg/dL Estimated GFR (Cockcroft-Gault) 81.6 Glucose Level 200 mg/dL Lactic Acid Level 1.3 mmol/L Calcium Level 9.0 mg/dL Creatine Kinase 33 U/L Serum Test, Qualitative Negative Current Medications Medications (Trade) Dose Ordered Sig/Payton Route PRN Reason Start Time Stop Time Status Last Admin Dose Admin Morphine Sulfate (Morphine Sulfate) 4 mg 1X ONCE IV 09/13/19 18:00 09/13/19 18:01 DC 09/13/19 19:25 Iohexol (Omnipaque 350 Mg/ml) 90 ml 1X ONCE IV 09/13/19 20:15 09/13/19 20:16 DC Info (CONTRAST GIVEN -- Rx MONITORING) 1 each PRN DAILY PRN MC SEE COMMENTS 09/13/19 20:15 09/15/19 20:14 Sodium Chloride 1,000 ml @ 0 mls/hr 1X ONCE IV 09/13/19 21:30 09/13/19 21:31 DC Vital Signs: Vital Signs Date Time Temp Pulse Resp B/P (MAP) Pulse Ox O2 Delivery O2 Flow Rate FiO2 09/13/19 22:58 100 Room Air 09/13/19 19:25 16 09/13/19 17:30 98.5 84 169/82 (111) 98.5 EKG: EKG: [] Radiology/Procedures: Radiology/Procedures: [][facility] [address] [place] [address] IMAGING REPORT Signed PATIENT: MARILU MANCIA: [id number] : 1975 LOCATION: ER AGE: 44 SEX: F EXAM STATUS: REG ER ORD. PHYSICIAN: KEI MEJIAS DO REASON: RLE pain and swelling PROCEDURE: VENOUS LOWER EXTREMITY RIGHT CLINICAL HISTORY: RLE pain and swelling COMPARISON: None available. TECHNIQUE: Ultrasound evaluation of the right lower extremity was performed from the groin to the upper calf with leos scale, spectral and color doppler evaluation. FINDINGS: The common femoral vein, and femoral vein, including the saphenous-femoral junction are normal in appearance. Color and spectral Doppler evaluation demonstrates normal spontaneous flow, augmentation and phasicity. The popliteal vein and visualized calf veins also demonstrate normal compressibility and flow. IMPRESSION: No evidence for DVT in the right lower extremity Electronically signed by: Levon Beckett MD (09/13/2019 6:16 PM) [facility] DICTATED and SIGNED BY: LEVON BECKETT MD DATE: 09/13/191815 [id number] [place] [address] IMAGING REPORT Signed PATIENT: MARILU MANCIA: [id number] : 1975 LOCATION: ER AGE: 44 SEX: F EXAM STATUS: REG ER ORD. PHYSICIAN: KEI MEJIAS DO REASON: assymetric RLE swelling. eval IVC and Right ilac fro DVT PROCEDURE: CT ABD PELV W/ IV CONTRST ONLY CT abdomen and pelvis with contrast: Reason for examination: Asymmetric right lower extremity swelling. Comparison is made to previous study dated 05/05/2019. Helical images were obtained through the abdomen and pelvis with intravenous administration of 100 cc Omnipaque 300. Reconstruction was performed in sagittal and coronal planes. Exposure: One or more of the following individualized dose reduction techniques were utilized for this examination: 1. Automated exposure control 2. Adjustment of the mA and/or kV according to patient size 3. Use of iterative reconstruction technique. There is minimal residual bandlike density in the right middle lobe distribution. No pleural effusions or pneumothorax are seen. The heart size is normal with no pericardial effusion. No abnormality seen at the liver, gallbladder adrenal glands or pancreas. Splenic granuloma are present. The abdominal aorta and inferior vena cava show no abnormalities. The kidneys show no renal masses or hydronephrosis but there are bilateral nonobstructing renal calculi again seen. The stomach is not distended. G-tube is present however in the anterior gastric wall. There is no evidence of diverticulosis or diverticulitis or colitis. The appendix is not identified. The small intestinal tract shows no abnormal dilatation, wall thickening or evidence of obstruction. No abnormality seen at the bladder. Uterus is heterogeneous with nodules consistent with fibroids. There are phleboliths in the pelvis. No free fluid is identified. No gross abnormalities are seen at the iliac or common femoral arteries and veins. There are a few prominent lymph nodes present in the groin bilaterally. No acute bony abnormalities are seen. IMPRESSION: Minimal residual stranding in the right middle lobe possibly reflecting scarring. No obstructive uropathy is seen. No bowel obstruction is evident. Uterus is heterogeneous with nodules consistent with fibroids. A few prominent lymph nodes are seen in the groin. No acute vascular abnormality apparent. Electronically signed by: Reba Mckeon MD (09/14/2019 12:08 AM) [id number] DICTATED and SIGNED BY: REBA MCKEON MD DATE: 09/14/19 0008 Course & Med Decision Making: Course & Med Decision Making Pertinent Labs and Imaging studies reviewed. (See chart for details) Patient is a 44-year-old female who presents with chief complaint of right lower extremity pain and swelling. She denies any trauma or injury. Physical exam noted above. Patient does have +1-4 pitting edema in the right lower extremity. Warm to touch. Strong dopplerable pulse on the right DP. Right lower extremity ultrasound was obtained and did not show any DVT. Basic labs were obtained and were grossly unremarkable. CPK normal. Lactic acid normal. Overall very low suspicion for emergent peripheral arterial disease. Given she has a normal lactate, strong dopplerable DP pulse on the right, warm to touch right lower extremity. Given the patient's asymmetric right lower swelling without DVT identified on ultrasound it was concern for potential proximal venous occlusion. CT abdomen pelvis with IV contrast was obtained. No signs of proximal venous occlusion were identified. No further abdominal etiology can be identified. Patient's pain was well controlled in the emergency department. She was able to ambulate with assistance which is at her baseline. Furthermore, she was seen moving her right lower extremity and full range of motion without discomfort multiple times in the emergency department. I do feel is reasonable to discharge patient home at this time. She does live with her daughter who can watch her closely. I did give her strict 24-hour return precautions. The patient and daughter both expressed understanding. She was instructed to follow-up with her primary care physician in the next 2 to 3 days. Stable for discharge home. Digna Disclaimer: Digna Disclaimer: This electronic medical record was generated, in whole or in part, using a voice recognition dictation system. Departure Departure Disposition: 01 HOME, SELF-CARE Condition: GOOD Referrals: REJI CORREA MD (PCP) Patient Instructions: Peripheral Edema Additional Instructions: [facility] [address] [place] [address] [facility] [address] [place] [address] [facility] [address] [place] [address] [facility] [address] [place] [address] [facility] [address] [place] [address] San[facility] [address] [place] [address] [facility] [address] [place] [address] [facility] [address] [place] [address] [facility] [address] [place] [address] [facility] [address] [place] [address] Scripts Acetaminophen (TYLENOL) 325 Mg Tablet 650 MG PO TID for 7 Days, #21 TAB Prov: TANQUARY,KEI H DO 09/14/19 Justicifation of Admission Dx: Justifications for Admission: Justification of Admission Dx: N/A KEI MEJIAS DO Sep 13, 2019 18:25
[2019-09-13 19:25] LABS: BASO # 0.1 x10^3/uL (0.0-0.2); BASO % 1 % (0-3); EOS # 2.1 x10^3/uL (0.0-0.7); EOS % 26 % (0-3); HEMATOCRIT 28.4 % (36.0-47.0); HEMOGLOBIN 9.5 g/dL (12.0-15.5); LYMPH % 25 % (24-48); MEAN CORPUSCULAR HEMOGLOBIN 28 pg (25-35); MEAN CORPUSCULAR HGB CONC 34 g/dL (31-37); MEAN CORPUSCULAR VOLUME 83 fL (79-100); MONO # 0.6 x10^3/uL (0.0-1.1); MONO % 7 % (0-9); NEUT # 3.2 x10^3/uL (1.8-7.7); NEUT % 40 % (31-73); PLATELET COUNT 307 x10^3/uL (140-400); RED BLOOD COUNT 3.44 x10^6/uL (3.50-5.40); RED CELL DISTRIBUTION WIDTH 19.7 % (11.5-14.5)
[2019-09-13 19:34] LABS: PROTHROMBIN TIME PATIENT 13.3 SEC (11.7-14.0)
[2019-09-13 19:38] LABS: CREATININE 0.9 mg/dL (0.6-1.0); GFR 81.6; POTASSIUM 4.2 mmol/L (3.5-5.1)
[2019-09-13 19:49] LABS: PREG TEST PT QUAL NEGATIVE (NEG)
[2019-09-13 19:57] LABS: % EOS 20 % (0-5); % LYMPHS 27 % (24-48); % MONOS 5 % (0-10); % SEGS 48 % (35-66); PLT ESTIMATE ADEQUATE (ADEQUATE)
[2019-09-13 19:58] LABS: ANISOCYTOSIS SLIGHT; HYPOCHROMIA SLIGHT; POLYCHROMASIA SLIGHT
[2019-09-13] MEDS ORDERED: IOHEXOL 350 MG/ML 100 ML VIAL. IV ONE (20:15)
[2019-09-13] MEDS ORDERED: CONTRAST GIVEN. MC PRN ×2 (20:15→23:55)
[2019-09-13] MEDS ORDERED: IV NORMAL SALINE 1000ML BAG 1,000 ML IV ONE (21:30)
[2019-09-13] MEDS ORDERED: HYDROcodone/APAP 5/325MG 1 TAB TABLET PO ONE (22:15)
[2019-09-13] MEDS ORDERED: IOHEXOL 300 MG/ML 100ML VIAL. IV ONE (23:55)
--- NOTE | 2019-09-14 00:11 | RAD ---
CT abdomen and pelvis with contrast: Reason for examination: Asymmetric right lower extremity swelling. Comparison is made to previous study dated 05/05/2019. Helical images were obtained through the abdomen and pelvis with intravenous administration of 100 cc Omnipaque 300. Reconstruction was performed in sagittal and coronal planes. Exposure: One or more of the following individualized dose reduction techniques were utilized for this examination: 1. Automated exposure control 2. Adjustment of the mA and/or kV according to patient size 3. Use of iterative reconstruction technique. There is minimal residual bandlike density in the right middle lobe distribution. No pleural effusions or pneumothorax are seen. The heart size is normal with no pericardial effusion. No abnormality seen at the liver, gallbladder adrenal glands or pancreas. Splenic granuloma are present. The abdominal aorta and inferior vena cava show no abnormalities. The kidneys show no renal masses or hydronephrosis but there are bilateral nonobstructing renal calculi again seen. The stomach is not distended. G-tube is present however in the anterior gastric wall. There is no evidence of diverticulosis or diverticulitis or colitis. The appendix is not identified. The small intestinal tract shows no abnormal dilatation, wall thickening or evidence of obstruction. No abnormality seen at the bladder. Uterus is heterogeneous with nodules consistent with fibroids. There are phleboliths in the pelvis. No free fluid is identified. No gross abnormalities are seen at the iliac or common femoral arteries and veins. There are a few prominent lymph nodes present in the groin bilaterally. No acute bony abnormalities are seen. IMPRESSION: Minimal residual stranding in the right middle lobe possibly reflecting scarring. No obstructive uropathy is seen. No bowel obstruction is evident. Uterus is heterogeneous with nodules consistent with fibroids. A few prominent lymph nodes are seen in the groin. No acute vascular abnormality apparent. Electronically signed by: Mary Kate Hess MD (09/14/2019 12:08 AM) [id number]
[2019-09-14] MEDS ORDERED: ACET325T9 PO (00:23)
[2019-09-14 00:45] VITALS: BP 190/105
--- NOTE | 2019-09-14 01:09 | RAD ---
Right lower extremity arterial Doppler: Reason for examination: Right lower extremity pain and swelling. The right lower extremity arterial system was evaluated from the common femoral artery distally to the posterior tibial and dorsalis pedis arteries with grayscale imaging, color-flow imaging and spectral analysis. There appears to be arteriosclerotic plaque from the common femoral artery to the proximal anterior tibial and tibial peritoneal trunk. Blood flow however is present. There is a triphasic waveform at the common femoral and superficial from femoral artery. There is a monophasic waveform at the popliteal artery and biphasic waveform at the posterior tibial, peroneal and anterior tibial artery. There is reversed flow at the distal posterior tibial artery and biphasic waveform at the dorsalis pedis artery. Flow velocities are as follows (in centimeters per second): Common femoral artery 109. Deep femoral artery 172. Proximal superficial femoral artery 170. Mid superficial femoral artery 106. Distal superficial femoral artery 209. Popliteal artery 102. Proximal posterior tibial artery 58. Mid posterior tibial artery 55 Distal posterior tibial artery reverse flow. Peroneal artery 57 Anterior tibial artery 56. Dorsalis pedis artery 28. IMPRESSION: Plaque with stenosis throughout the arterial system system with a monophasic waveform in the popliteal artery but biphasic waveform distal to the popliteal artery and reversal in the posterior tibial artery distally suggesting collateral flow. Slow flow velocity in the dorsalis pedis artery. Electronically signed by: Mary Kate Hess MD (09/14/2019 1:06 AM) [id number]
== END 2019-09-14 00:45 | disposition home or self-care (01) ==
LOC: ER 17:19
DX: R60.0 Localized edema (principal); M79.604 Pain in right leg; I11.0 Hypertensive heart disease with heart failure; I50.9 Heart failure, unspecified; E11.9 Type 2 diabetes mellitus without complications; E78.5 Hyperlipidemia, unspecified; I25.10 Atherosclerotic heart disease of native coronary artery without angina pectoris; Z86.73 Personal history of transient ischemic attack (TIA), and cerebral infarction without residual deficits; I25.2 Old myocardial infarction; Z87.891 Personal history of nicotine dependence; Z95.5 Presence of coronary angioplasty implant and graft; Z88.2 Allergy status to sulfonamides; Z88.8 Allergy status to other drugs, medicaments and biological substances
CPT/HCPCS: 36415; 74177; 80048; 82550; 83605; 84703; 85007; 85025; 85610; 85730; 93926; 93971; 96374; 99285; J2270; J7030

== ENCOUNTER 2019-10-08 18:34 | Emergency (ER) | payer MEDICAID ==
[~2019-10-08] VITALS: Ht 154.9 cm; Wt 64.5 kg
[~2019-10-08 18:34] MED LIST changes: +ACET325T9 PO; -ASPI-612 PO; +ASPI-886 PO
[2019-10-08 19:26] LABS: BASO # 0.1 x10^3/uL (0.0-0.2); BASO % 2 % (0-3); EOS # 0.9 x10^3/uL (0.0-0.7); EOS % 15 % (0-3); HEMATOCRIT 28.8 % (36.0-47.0); HEMOGLOBIN 9.5 g/dL (12.0-15.5); LYMPH # 2.2 x10^3/uL (1.0-4.8); LYMPH % 37 % (24-48); MEAN CORPUSCULAR HEMOGLOBIN 28 pg (25-35); MEAN CORPUSCULAR HGB CONC 33 g/dL (31-37); MEAN CORPUSCULAR VOLUME 85 fL (79-100); MONO # 0.6 x10^3/uL (0.0-1.1); MONO % 10 % (0-9); NEUT # 2.1 x10^3/uL (1.8-7.7); NEUT % 36 % (31-73); PLATELET COUNT 285 x10^3/uL (140-400); RED BLOOD COUNT 3.38 x10^6/uL (3.50-5.40)
[2019-10-08 19:33] LABS: CALCIUM 8.9 mg/dL (8.5-10.1); CREATININE 0.8 mg/dL (0.6-1.0); GFR 93.4; POTASSIUM 3.7 mmol/L (3.5-5.1)
--- NOTE | 2019-10-08 21:16 | RAD ---
STUDY: CT head without contrast INDICATION: Leg weakness. COMPARISON: MRI of the brain 04/29/2019; CT head 02/15/2019 TECHNIQUE: Axial CT imaging through the head without the use of intravenous contrast. Sagittal and coronal reformats were obtained. One or more of the following individualized dose reduction techniques were utilized for this examination: 1. Automated exposure control 2. Adjustment of the mA and/or kV according to patient size 3. Use of iterative reconstruction technique. FINDINGS: No acute intracranial hemorrhage. No CT evidence for an acute cortical infarction. No mass effect, midline shift or hydrocephalus. Redemonstrated foci of bihemispheric subcortical/periventricular white matter low-attenuation. Rounded hypoattenuating focus within the left occipital lobe is unchanged. There is redemonstration of hypoattenuation at the junction of the midbrain and anthony, image 10 series 2. Age accelerated carotid siphon calcific atherosclerosis. Unchanged calvarium. IMPRESSION: 1. No acute intracranial abnormality by CT. 2. Scattered subcortical/periventricular and brainstem low-attenuation does not appear significantly different from the 02/15/2019 comparison. These findings were better characterized on the more recent MRI and again could be from chronic microvascular ischemia or a demyelinating process. MRI would be more sensitive to assess for progression. Electronically signed by: ADDIE VERDE MD (10/08/2019 9:13 PM) [id number]
--- NOTE | 2019-10-08 22:01 | PHYS DOC ---
Past Medical History Past Medical History: CAD, CHF, CVA, Diabetes-Type II, Hypertension, [place], Stroke, Other Additional Past Medical Histor: 3 CARDIAC STENTS, LEFT BREAST CYST, PEG TUBE Past Surgical History: Angioplasty, Other Additional Past Surgical Histo: CARDIAC STENTS X'S 3,HEART CATH, PEG TUBE Smoking Status: Former Smoker Alcohol Use: None Drug Use: Marijuana General Adult EDM: Chief Complaint: LOWER EXT PAIN HPI: HPI: Patient is a 44-year-old female who presents the emergency room complaining of right leg heaviness. She has chronic deficits in this leg from former strokes. She states that this heaviness feeling started at 7 AM this morning. Patient answered very few questions. In the middle of history patient asked for the TV remote so she could watch TV. She did not answer any questions after that. Review of Systems: Review of Systems: General: Denies fever, chills, sweats, fatigue Eyes: Denies drainage, blurred vision, eye redness HENT: Denies rhinorrhea, sore throat, earache Respiratory: Denies cough, shortness of breath, wheezing Cardiac: Denies edema, palpitations, chest pain GI: Denies abdominal pain, Nausea, vomiting MSK: Denies back pain, neck pain Skin: Denies rash, jaundice Neuro: Denies headache, dizziness Psychiatric: Denies SI/HI Heart Score: Risk Factors: Risk Factors: DM, Current or recent (<one month) smoker, HTN, HLP, family history of CAD, obesity. Risk Scores: Score 0 - 3: 2.5% MACE over next 6 weeks - Discharge Home Score 4 - 6: 20.3% MACE over next 6 weeks - Admit for Clinical Observation Score 7 - 10: 72.7% MACE over next 6 weeks - Early Invasive Strategies Allergies: Allergies: Allergies Coded Allergies Type Severity Reaction Last Updated Verified Sulfa (Sulfonamide Antibiotics) Allergy Intermediate hives 04/21/19 Yes lisinopril Allergy Intermediate hives 04/21/19 Yes Physical Exam: PE: General: Awake, alert, NAD. Well Nourished, well hydrated. Cooperative HEENT: Atraumatic, EOMI, PERRL, airway patent, moist oral mucosa Neck: Supple, trachea midline Respiratory: CTA bilaterally, normal effort, no wheezing/crackles CV: RRR, no murmur, cap refill <2 GI: Soft, nondistended, nontender, no masses MSK: No obvious deformities Skin: Warm, dry, intact Neuro: A&O x3, speech NL, 5/5 strength in BUE/BLE distally and proximally, CN 2- 12 intact, cerebellar testing normal Psych: Normal affect, normal mood, not suicidal or homicidal Current Patient Data: Labs: Laboratory Tests Test 10/08/19 19:16 White Blood Count 6.0 x10^3/uL (4.0-11.0) Red Blood Count 3.38 x10^6/uL (3.50-5.40) L Hemoglobin 9.5 g/dL (12.0-15.5) L Hematocrit 28.8 % (36.0-47.0) L Mean Corpuscular Volume 85 fL (79-100) Mean Corpuscular Hemoglobin 28 pg (25-35) Mean Corpuscular Hemoglobin Concent 33 g/dL (31-37) Red Cell Distribution Width 19.0 % (11.5-14.5) H Platelet Count 285 x10^3/uL (140-400) Neutrophils (%) (Auto) 36 % (31-73) Lymphocytes (%) (Auto) 37 % (24-48) Monocytes (%) (Auto) 10 % (0-9) H Eosinophils (%) (Auto) 15 % (0-3) H Basophils (%) (Auto) 2 % (0-3) Neutrophils # (Auto) 2.1 x10^3/uL (1.8-7.7) Lymphocytes # (Auto) 2.2 x10^3/uL (1.0-4.8) Monocytes # (Auto) 0.6 x10^3/uL (0.0-1.1) Eosinophils # (Auto) 0.9 x10^3/uL (0.0-0.7) H Basophils # (Auto) 0.1 x10^3/uL (0.0-0.2) D-Dimer (Sonam) 0.55 ug/mlFEU (0.00-0.50) H Sodium Level 140 mmol/L (136-145) Potassium Level 3.7 mmol/L (3.5-5.1) Chloride Level 105 mmol/L (98-107) Carbon Dioxide Level 24 mmol/L (21-32) Anion Gap 11 (6-14) Blood Urea Nitrogen 10 mg/dL (7-20) Creatinine 0.8 mg/dL (0.6-1.0) Estimated GFR (Cockcroft-Gault) 93.4 Glucose Level 81 mg/dL (70-99) Calcium Level 8.9 mg/dL (8.5-10.1) Laboratory Tests 10/08/19 19:16 Laboratory Tests 10/08/19 19:16 Vital Signs: Vital Signs Date Time Temp Pulse Resp B/P (MAP) Pulse Ox O2 Delivery O2 Flow Rate FiO2 10/08/19 18:53 98.2 84 16 174/85 (114) 96 Room Air 98.2 EKG: EKG: [] Radiology/Procedures: Radiology/Procedures: [] Course & Med Decision Making: Course & Med Decision Making Pertinent Labs and Imaging studies reviewed. (See chart for details) Patient is a 44-year-old female presents the emergency room complaining of leg heaviness. Overall patient has a normal exam. She overall is well-appearing. CT head is unchanged. Labs are unremarkable. Patient has been stable here in the emergency room. This time she is safe for discharge. Patient's test results and vitals while in the ED were fully reviewed and discussed with the patient. Patient is stable and at this time does not need admission to the hospital. We have discussed strict return precautions and the importance of following up with their Primary Care Physician. Patient stated understanding and was given an opportunity to ask any questions. Patient is in agreement with plan. Dragon Disclaimer: Dragon Disclaimer: This electronic medical record was generated, in whole or in part, using a voice recognition dictation system. Departure Departure Impression: Primary Impression: Leg heaviness Disposition: HOME, SELF-CARE Condition: STABLE Referrals: REJI CORREA MD (PCP) Patient Instructions: Weakness, [id number] Justicifation of Admission Dx: Justifications for Admission: Justification of Admission Dx: BHUPENDRA Miles MD Oct 08, 2019 22:01
[2019-10-08 22:25] VITALS: BP 144/83
== END 2019-10-08 22:27 | disposition home or self-care (01) ==
LOC: ER 18:34
DX: M79.606 Pain in leg, unspecified (principal); I11.9 Hypertensive heart disease without heart failure; I50.9 Heart failure, unspecified; E11.9 Type 2 diabetes mellitus without complications; I25.2 Old myocardial infarction; F12.90 Cannabis use, unspecified, uncomplicated; Z98.890 Other specified postprocedural states; Z90.89 Acquired absence of other organs; Z87.891 Personal history of nicotine dependence; Z88.2 Allergy status to sulfonamides; Z88.6 Allergy status to analgesic agent
CPT/HCPCS: 36415; 70450; 80048; 85025; 85379; 99284

== ENCOUNTER 2019-10-13 17:33 | Emergency (ER) | payer MEDICAID ==
[~2019-10-13] VITALS: Ht 162.6 cm; Wt 65.4 kg
[2019-10-13] MEDS ORDERED: FAMOTIDINE 20 MG/2 ML VIAL IVP ONE (17:45)
--- NOTE | 2019-10-13 17:49 | PHYS DOC ---
Past Medical History Past Medical History: CAD, CHF, CVA, Diabetes-Type II, Hypertension, DC, Stroke, Other Additional Past Medical Histor: 3 CARDIAC STENTS, LEFT BREAST CYST, PEG TUBE (LUISA YOUNGER [facility]) Past Surgical History: Angioplasty, Other Additional Past Surgical Histo: CARDIAC STENTS X'S 3,HEART CATH, PEG TUBE ([facility]ISA YOUNGER [facility]) Smoking Status: Former Smoker Alcohol Use: None Drug Use: Marijuana (LUISA YOUNGER [facility]) General Adult EDM: Chief Complaint: GTUBE REPLACEMENT/MALFUNCTION HPI: HPI: Patient is a 44 year old fentanyl who presents with complaints of pain around her PEG tube. Upon going in the room patient is pulling out her PEG tube. Patient is educated that she should not pull up the PEG tube as this can cause her pain. She also states that when she belches she gets a "nasty" taste in her mouth. She is unable to tell me what that tastes like. Patient rates her pain a 10 out of 10. Patient is asking for a IV in her neck with pain medicine. Abdomen is soft but looks slightly distended and is tender only around the PEG tube area. Patient states the PEG tube is working appropriately and her daughter does her PEG tube for her. Patient has a history of diabetes, DC, CVA, CAD, CHF, hypertension, cardiac stents, PEG tube. ([facility]ISA YOUNGER [facility]) Review of Systems: Review of Systems: Constitutional: Denies fever or chills. [] Eyes: Denies change in visual acuity. [] HENT: Denies nasal congestion or sore throat. Bad taste in mouth after belching[] Respiratory: Denies cough or shortness of breath. [] Cardiovascular: Denies chest pain or edema. [] GI: abdominal pain at G Tube, nausea, vomiting, bloody stools or diarrhea. [] : Denies dysuria. [] Musculoskeletal: Denies back pain or joint pain. [] Integument: Denies rash. [] Neurologic: Denies headache, focal weakness or sensory changes. [] Endocrine: Denies polyuria or polydipsia. [] Lymphatic: Denies swollen glands. [] Psychiatric: Denies depression or anxiety. [] (LUISA YOUNGER [facility]) Heart Score: Risk Factors: Risk Factors: DM, Current or recent (<one month) smoker, HTN, HLP, family history of CAD, obesity. Risk Scores: Score 0 - 3: 2.5% MACE over next 6 weeks - Discharge Home Score 4 - 6: 20.3% MACE over next 6 weeks - Admit for Clinical Observation Score 7 - 10: 72.7% MACE over next 6 weeks - Early Invasive Strategies (LUISA YOUNGER APRN) Allergies: Allergies: Allergies Coded Allergies Type Severity Reaction Last Updated Verified Sulfa (Sulfonamide Antibiotics) Allergy Intermediate hives 04/21/19 Yes lisinopril Allergy Intermediate hives 04/21/19 Yes (LUISA YOUNGER APRN) Physical Exam: PE: Constitutional: Well developed, well nourished, no acute distress, non-toxic appearance. [] HENT: Normocephalic, atraumatic, bilateral external ears normal, oropharynx moist, no oral exudates, nose normal. [] Eyes: PERRLA, EOMI, conjunctiva normal, no discharge. [] Neck: Normal range of motion, no tenderness, supple, no stridor. [] Cardiovascular:Heart rate regular rhythm, no murmur [] Lungs & Thorax: Bilateral breath sounds clear to auscultation [] Abdomen: Bowel sounds normal, soft, mid umbilical tenderness, no masses, no pulsatile masses. [] Skin: Warm, dry, no erythema, no rash. [] Back: No tenderness, no CVA tenderness. [] Extremities: No tenderness, no cyanosis, no clubbing, ROM intact, no edema. [] Neurologic: Alert and oriented X 3, normal motor function, normal sensory function, no focal deficits noted. [] Psychologic: Affect normal, judgement normal, mood normal. [] (LUISA YOUNGER APRN) EKG: EK and read by Dr Larson as Sinus Rhythm and no STEMI[] (LUISA YOUNGER APRN) Radiology/Procedures: Radiology/Procedures: [] Impression: [facility] [address] [place] [address] IMAGING REPORT Signed PATIENT: MARILU MANCIA YACCOUNT: [id number] : 1975 LOCATION: ER AGE: 44 SEX: F EXAM STATUS: REG ER ORD. PHYSICIAN: LUISA YOUNGER APRN REASON: abnormal CT scan PROCEDURE: PELVIS W/TV PELVIS W/TV History: Abnormal CT scan Comparison: CT the same day. Findings: Multiple transabdominal sonographic images of the pelvis are submitted. Uterus measured about 10.2 x 6.6 cm. Endometrium measured about 0.9 cm in thickness. There is a mass near the fundus of the uterus about 2.6 cm in greatest dimension. Left ovary measured 3.4 x 2.7 x 2.8 cm, normal color flow. There is mild free fluid along the left aspect of the uterus and also the right adnexal region. Transvaginal ultrasound: Multiple transvaginal sonographic images of pelvis are submitted. Right ovary measured 5.9 x 4.7 x 5.1 cm. There is a 4 x 2.4 by by 4.2 cm focus of different echogenicity of the right ovary with diffuse internal echoes present, not associated with internal vascularity on color Doppler imaging. There is normal color flow and low resistance vascularity of the right ovary. Left ovary measured 4.9 x 2 x 2.3 cm with normal color flow and low resistance vascularity. Uterus measured 10.4 x 5.7 x 6.5 cm. Endometrium measured 1.2 cm in thickness. Impression: 1. There is an avascular mass of the right ovary, diffuse internal echoes. This could be due to etiology such as complex cyst or endometrioma, although solid avascular mass possible. Short-term follow-up such as in 2 months or nonemergent pelvis MRI could be indicated. There is minimal free fluid in the pelvis such as of the right adnexal region. 2. Mass along the superior uterus near the fundus could be a fibroid. Electronically signed by: Abner Chan MD (10/13/2019 8:47 PM) [facility] DICTATED and SIGNED BY: ABNER CHAN MD DATE: 10/13/192046 [facility] [address] [place] [address] IMAGING REPORT Signed PATIENT: MARILU MANCIACCOUNT: [id number] : 1975 LOCATION: ER AGE: 44 SEX: F EXAM STATUS: REG ER ORD. PHYSICIAN: LUISA YOUNGER APRN REASON: pain at gi tube site PROCEDURE: CT ABDOMEN PELVIS WO CONTRAST CT ABDOMEN PELVIS WO CONTRAST History: Reason: pain at gi tube site / Spl. Instructions: / History: Technique: Noncontrast examination of the abdomen and pelvis. Coronal and sagittal reconstructions were performed. Exposure: One or more of the following individualized dose reduction techniques were utilized for this examination: 1. Automated exposure control 2. Adjustment of the mA and/or kV according to patient size 3. Use of iterative reconstruction technique. Comparison: September 13, 2019 Findings: Lower chest: Right middle lobe linear atelectasis or scarring. No pleural effusion. No consolidation. Prior granulomatous disease within the chest. Abdomen and pelvis: Unremarkable noncontrast appearance of the liver, adrenal glands, pancreas and gallbladder. Splenic calcifications likely related to prior granulomatous disease. Left nonobstructing renal calculi and renal artery calcifications. Right renal artery calcifications and/or nonobstructing renal calculi. No hydronephrosis. Decompressed urinary bladder. Bulky appearance of the uterus with exophytic mass anteriorly measures 2.0 x 2.8 cm, unchanged and likely represents uterine fibroids. Hyperdense lesion within the right adnexa, may represent ovarian lesion or enlarged right ovary measures 6.4 x 3.6 cm. Appendix not well seen. No evidence of bowel obstruction. Gastrostomy tube noted within the stomach. No infiltration adjacent to the gastrostomy tube within the anterior abdominal wall or subcutaneous tissues. No pathologic lymphadenopathy. No ascites. Bones: No pathologic osseous lesions. Impression: 1. Unchanged gastrostomy tube. 2. Right adnexal hypodense lesion, may represent ovarian lesion or enlarged ovary. Recommend ultrasound to further evaluate. 3. Bulky appearance of the uterus with exophytic lesion anteriorly, likely fibroids. Electronically signed by: Mitchell Chew DO (10/13/2019 6:41 PM) [facility] DICTATED and SIGNED BY: MITCHELL CHEW DO DATE: 10/13/19 184 (LUISA YOUNGER APRN) Course & Med Decision Making: Course & Med Decision Making Pertinent Labs and Imaging studies reviewed. (See chart for details) See HPI. Alert and oriented x4. Speaks in full complete sentences. Skin is pink warm and dry. Bowel sounds are present. Blood work unremarkable. CT abdomen pelvis shows no acute findings but does see what is likely ovarian cyst. I then did an ultrasound which showed the same thing. She is to follow-up with an [facility] as soon as possible. I have referred her to the [facility]. Urinalysis shows no infection. Patient is stable and can go home. [] (LUSIA YOUNGER APRN) Dragon Disclaimer: Dragon Disclaimer: This electronic medical record was generated, in whole or in part, using a voice recognition dictation system. (LUISA YOUNGER APRN) Departure Departure Impression: Primary Impression: Ovarian mass Additional Impression: Abdominal pain Qualified Codes: R10.33 - Periumbilical pain Disposition: 01 LEFT WITHOUT BEING SEEN Referrals: REJI CORREA MD (PCP) DENIS CHOUDHARY Jr, MD Patient Instructions: Abdominal Pain (Nonspecific), Ovarian Cyst, [id number] Additional Instructions: Follow-up with your trouble tracer or Dr. Choudhary that I have referred you to for your ovarian cyst. Follow-up with your primary care physician. Scripts Hydrocodone/Apap 5-325 (NORCO 5-325 TABLET) 1 Each Tablet 1 TAB PO PRN Q6HRS PRN for PAIN, #5 TAB 0 Refills Prov: LUISA YOUNGER APRN 10/13/19 Justicifation of Admission Dx: Justifications for Admission: Justification of Admission Dx: N/A (LUISA YOUNGER APRN) Attending Signature Attending Signature I have reviewed the PA/DRY DIP WORKER's note and plan of care. I was available for consultation as needed at all times during the patient's visit in the emergency department. I agree with the clinical impression, plan and disposition. (JASKARAN LARSON DO) LUISA YOUNGER APRN Oct 13, 2019 17:49 JASKARAN LARSON DO Oct 15, 2019 09:25
--- NOTE | 2019-10-13 18:44 | RAD ---
CT ABDOMEN PELVIS WO CONTRAST History: Reason: pain at gi tube site / Spl. Instructions: / History: Technique: Noncontrast examination of the abdomen and pelvis. Coronal and sagittal reconstructions were performed. Exposure: One or more of the following individualized dose reduction techniques were utilized for this examination: 1. Automated exposure control 2. Adjustment of the mA and/or kV according to patient size 3. Use of iterative reconstruction technique. Comparison: September 13, 2019 Findings: Lower chest: Right middle lobe linear atelectasis or scarring. No pleural effusion. No consolidation. Prior granulomatous disease within the chest. Abdomen and pelvis: Unremarkable noncontrast appearance of the liver, adrenal glands, pancreas and gallbladder. Splenic calcifications likely related to prior granulomatous disease. Left nonobstructing renal calculi and renal artery calcifications. Right renal artery calcifications and/or nonobstructing renal calculi. No hydronephrosis. Decompressed urinary bladder. Bulky appearance of the uterus with exophytic mass anteriorly measures 2.0 x 2.8 cm, unchanged and likely represents uterine fibroids. Hyperdense lesion within the right adnexa, may represent ovarian lesion or enlarged right ovary measures 6.4 x 3.6 cm. Appendix not well seen. No evidence of bowel obstruction. Gastrostomy tube noted within the stomach. No infiltration adjacent to the gastrostomy tube within the anterior abdominal wall or subcutaneous tissues. No pathologic lymphadenopathy. No ascites. Bones: No pathologic osseous lesions. Impression: 1. Unchanged gastrostomy tube. 2. Right adnexal hypodense lesion, may represent ovarian lesion or enlarged ovary. Recommend ultrasound to further evaluate. 3. Bulky appearance of the uterus with exophytic lesion anteriorly, likely fibroids. Electronically signed by: Mitchell Chew DO (10/13/2019 6:41 PM) [facility]
[2019-10-13 18:54] LABS: BASO % 1 % (0-3); EOS # 0.6 x10^3/uL (0.0-0.7); EOS % 10 % (0-3); HEMOGLOBIN 9.5 g/dL (12.0-15.5); LYMPH # 1.9 x10^3/uL (1.0-4.8); LYMPH % 34 % (24-48); MEAN CORPUSCULAR HEMOGLOBIN 28 pg (25-35); MEAN CORPUSCULAR HGB CONC 33 g/dL (31-37); MEAN CORPUSCULAR VOLUME 86 fL (79-100); MONO # 0.5 x10^3/uL (0.0-1.1); MONO % 8 % (0-9); NEUT # 2.6 x10^3/uL (1.8-7.7); NEUT % 46 % (31-73); PLATELET COUNT 277 x10^3/uL (140-400); RED BLOOD COUNT 3.37 x10^6/uL (3.50-5.40); RED CELL DISTRIBUTION WIDTH 19.2 % (11.5-14.5); WHITE BLOOD COUNT 5.6 x10^3/uL (4.0-11.0)
[2019-10-13] MEDS ORDERED: FAMOTIDINE 20 MG TABLET. PO ONE (19:00)
[2019-10-13] MEDS ORDERED: MORPHINE SULFATE 2 MG/ML VIAL. IM ONE (19:00)
[2019-10-13] MEDS ORDERED: ONDANSETRON ODT 4 MG TAB.RAPDIS. PO ONE (19:00)
[2019-10-13 19:05] LABS: PROTHROMBIN TIME PATIENT 13.8 SEC (11.7-14.0)
[2019-10-13 19:08] LABS: CALCIUM 9.5 mg/dL (8.5-10.1); CREATININE 0.9 mg/dL (0.6-1.0); GFR 81.6; POTASSIUM 3.7 mmol/L (3.5-5.1)
[2019-10-13 19:26] LABS: ALBUMIN 3.2 g/dL (3.4-5.0); ALBUMIN/GLOBULIN RATIO 0.8 (1.0-1.7); TOTAL BILIRUBIN 0.2 mg/dL (0.2-1.0); TOTAL PROTEIN 7.4 g/dL (6.4-8.2)
--- NOTE | 2019-10-13 20:50 | RAD ---
PELVIS W/TV History: Abnormal CT scan Comparison: CT the same day. Findings: Multiple transabdominal sonographic images of the pelvis are submitted. Uterus measured about 10.2 x 6.6 cm. Endometrium measured about 0.9 cm in thickness. There is a mass near the fundus of the uterus about 2.6 cm in greatest dimension. Left ovary measured 3.4 x 2.7 x 2.8 cm, normal color flow. There is mild free fluid along the left aspect of the uterus and also the right adnexal region. Transvaginal ultrasound: Multiple transvaginal sonographic images of pelvis are submitted. Right ovary measured 5.9 x 4.7 x 5.1 cm. There is a 4 x 2.4 by by 4.2 cm focus of different echogenicity of the right ovary with diffuse internal echoes present, not associated with internal vascularity on color Doppler imaging. There is normal color flow and low resistance vascularity of the right ovary. Left ovary measured 4.9 x 2 x 2.3 cm with normal color flow and low resistance vascularity. Uterus measured 10.4 x 5.7 x 6.5 cm. Endometrium measured 1.2 cm in thickness. Impression: 1. There is an avascular mass of the right ovary, diffuse internal echoes. This could be due to etiology such as complex cyst or endometrioma, although solid avascular mass possible. Short-term follow-up such as in 2 months or nonemergent pelvis MRI could be indicated. There is minimal free fluid in the pelvis such as of the right adnexal region. 2. Mass along the superior uterus near the fundus could be a fibroid. Electronically signed by: Ruiz Alexander MD (10/13/2019 8:47 PM) [facility]
[2019-10-13 21:24] LABS: BILIRUBIN,URINE NEGATIVE (NEG); CLARITY,URINE CLEAR; COLOR,URINE YELLOW; NITRITE,URINE NEGATIVE (NEG); PH,URINE 5.5 (<5.0-8.0); PROTEIN,URINE >=300 mg/dL (NEG-TRACE); UROBILINOGEN,URINE 0.2 mg/dL (0.2 mg/dL)
[2019-10-13 21:29] LABS: SQUAMOUS EPITHELIAL CELL,UR MANY /LPF
[2019-10-13 21:30] LABS: AMPHETAMINE/METHAMPHETAMINE NEG (NEG); BARBITURATES NEG (NEG); BENZODIAZEPINES NEG (NEG); CANNABINOIDS POS (NEG); COCAINE NEG (NEG); HYALINE CASTS, URINE MODERATE /HPF; METHADONE NEG (NEG); OPIATES POS (NEG); PHENCYCLIDINE NEG (NEG)
[2019-10-13 21:31] LABS: RBC,URINE 0 /HPF (0-2); WBC,URINE RARE /HPF (0-4)
[2019-10-13 21:32] LABS: BACTERIA,URINE FEW /HPF (0-FEW)
[2019-10-13] MEDS ORDERED: HYDR-3164 PO (21:35)
[2019-10-13 22:35] VITALS: BP 142/81
--- NOTE | 2019-10-14 05:24 | EKG ---
[facility] [address] [place] [address] Test Date: 2019-10-13 Test Time: 17:52:09 Pat Name: MARILU MANCIA Department: Room: Gender: F Progressive Care Unit Registered Nurse: : 1975 Requested By: LUISA YOUNGER Order Number: [id number] Reading MD: Measurements Intervals [place] Rate: 81 P: [place]: QRS: 32 QRSD: 78 T: 17 QT: 350 QTc: 407 Interpretive Statements ACCELERATED JUNCTIONAL RHYTHM ABNORMAL ECG RI6.02 No previous ECG available for comparison
== END 2019-10-13 22:40 | disposition home or self-care (01) ==
LOC: ER 17:33
DX: N83.8 Other noninflammatory disorders of ovary, fallopian tube and broad ligament (principal); R10.33 Periumbilical pain; I11.0 Hypertensive heart disease with heart failure; I50.9 Heart failure, unspecified; E11.9 Type 2 diabetes mellitus without complications; I25.2 Old myocardial infarction; I25.10 Atherosclerotic heart disease of native coronary artery without angina pectoris; Z86.73 Personal history of transient ischemic attack (TIA), and cerebral infarction without residual deficits; Z87.891 Personal history of nicotine dependence; Z95.5 Presence of coronary angioplasty implant and graft; Z88.2 Allergy status to sulfonamides; Z88.8 Allergy status to other drugs, medicaments and biological substances
CPT/HCPCS: 36415; 74176; 76830; 76856; 80053; 80307; 81001; 83690; 84484; 85025; 85610; 93005; 96372; 99285; J2270

== ENCOUNTER 2019-10-16 13:26 | Emergency (ER) | payer MEDICAID ==
[~2019-10-16] VITALS: Ht 162.6 cm; Wt 65.9 kg
[2019-10-16 14:17] LABS: ANION GAP 13 (6-14); BLOOD UREA NITROGEN 12 mg/dL (7-20); BUN/CREATININE RATIO 13 (6-20); CARBON DIOXIDE 20 mmol/L (21-32); CHLORIDE 106 mmol/L (98-107); CREATININE 0.9 mg/dL (0.6-1.0); GFR 81.6; GLUCOSE 176 mg/dL (70-99); POTASSIUM 3.6 mmol/L (3.5-5.1); SODIUM 139 mmol/L (136-145)
[2019-10-16 14:20] LABS: ALBUMIN/GLOBULIN RATIO 0.7 (1.0-1.7); ALK PHOS 64 U/L (46-116); CREATINE KINASE 48 U/L (26-192); LIPASE 162 U/L (73-393); MAGNESIUM 1.8 mg/dL (1.8-2.4); PHOSPHORUS 3.5 mg/dL (2.6-4.7); TOTAL BILIRUBIN 0.3 mg/dL (0.2-1.0); TOTAL PROTEIN 7.4 g/dL (6.4-8.2)
--- NOTE | 2019-10-16 14:28 | RAD ---
EXAM: CHEST 1 VIEW History: Stomach pain COMPARISON: 05/02/2019. TECHNIQUE: Single portable radiograph of the chest FINDINGS: The cardiac silhouette is unremarkable. The lungs are clear bilaterally. The costophrenic sulci are clear and well demarcated. IMPRESSION: No radiographic evidence of an acute cardiopulmonary process. Electronically signed by: Hiram Nunn MD (10/16/2019 2:25 PM) [id number]
[2019-10-16 14:36] LABS: ALT (SGPT) < 6 U/L (14-59); AST (SGOT) < 5 U/L (15-37)
--- NOTE | 2019-10-16 14:43 | PHYS DOC ---
Past Medical History Past Medical History: CAD, CHF, CVA, Diabetes-Type II, Hypertension, [place], Stroke, Other Additional Past Medical Histor: 3 CARDIAC STENTS, LEFT BREAST CYST, PEG TUBE Past Surgical History: Angioplasty, Other Additional Past Surgical Histo: CARDIAC STENTS X'S 3,HEART CATH, PEG TUBE Smoking Status: Former Smoker Additional Information: pt smells of cigarette smoke Alcohol Use: None Drug Use: Marijuana General Adult EDM: Chief Complaint: WEAKNESS/GENERALIZED HPI: HPI: 44 yo F PMH CVA, CAD, HTN HLD and DM sent to the ED brought in by EMS with complaints of generalized weakness starting this morning when she woke up. Also c/o chronic right leg pain. H/o cva with baseline expressive aphasia and right sided weakness. EMR was reviewed and patient was seen in the ed 3 days ago for abdominal pain and ovarian cysts (s/p CT abd/pel and pelvic US), drug screen positive for opioids and marijuana. Pt lives with daughter who provides all care. Review of Systems: Review of Systems: Constitutional: Denies fever or chills. [] Eyes: Denies change in visual acuity. [] HENT: Denies nasal congestion or sore throat. [] Respiratory: Denies cough or shortness of breath. [] Cardiovascular: Denies chest pain or edema. [] GI: Denies abdominal pain, nausea, vomiting, bloody stools or diarrhea. [] : Denies dysuria. [] Musculoskeletal: Denies back pain or joint pain. [] Integument: Denies rash. [] Neurologic: Denies headache, focal weakness or sensory changes. [] Endocrine: Denies polyuria or polydipsia. [] Lymphatic: Denies swollen glands. [] Psychiatric: Denies depression or anxiety. [] Heart Score: Risk Factors: Risk Factors: DM, Current or recent (<one month) smoker, HTN, HLP, family history of CAD, obesity. Risk Scores: Score 0 - 3: 2.5% MACE over next 6 weeks - Discharge Home Score 4 - 6: 20.3% MACE over next 6 weeks - Admit for Clinical Observation Score 7 - 10: 72.7% MACE over next 6 weeks - Early Invasive Strategies Allergies: Allergies: Allergies Coded Allergies Type Severity Reaction Last Updated Verified Sulfa (Sulfonamide Antibiotics) Allergy Intermediate hives 04/21/19 Yes lisinopril Allergy Intermediate hives 04/21/19 Yes Physical Exam: PE: Constitutional: Well developed, well nourished, no acute distress, non-toxic appearance. [] HENT: Normocephalic, atraumatic, bilateral external ears normal, oropharynx moist, baseline aphasia-no change from prior ed visits Eyes: PERRLA, EOMI, conjunctiva normal, no discharge. [] Neck: Normal range of motion, no tenderness, supple, no stridor. [] Cardiovascular:Heart rate regular rhythm, no murmur [] Lungs & Thorax: Bilateral breath sounds clear to auscultation [] Abdomen: Bowel sounds normal, soft, no tenderness, no masses, no pulsatile masses. [] Skin: Warm, dry, no erythema, no rash. [] Back: No tenderness, no CVA tenderness. [] Extremities: No tenderness, no cyanosis, no clubbing, ROM intact, no edema. [] Neurologic: Alert and oriented X 3, normal motor function, normal sensory function, no focal deficits noted. [] Psychologic: Affect normal, judgement normal, mood normal. [] Current Patient Data: Labs: Laboratory Tests Test 10/16/19 13:50 Sodium Level 139 mmol/L (136-145) Potassium Level 3.6 mmol/L (3.5-5.1) Chloride Level 106 mmol/L (98-107) Carbon Dioxide Level 20 mmol/L (21-32) L Anion Gap 13 (6-14) Blood Urea Nitrogen 12 mg/dL (7-20) Creatinine 0.9 mg/dL (0.6-1.0) Estimated GFR (Cockcroft-Gault) 81.6 BUN/Creatinine Ratio 13 (6-20) Glucose Level 176 mg/dL (70-99) H Calcium Level 9.0 mg/dL (8.5-10.1) Phosphorus Level 3.5 mg/dL (2.6-4.7) Magnesium Level 1.8 mg/dL (1.8-2.4) Total Bilirubin 0.3 mg/dL (0.2-1.0) Aspartate Amino Transferase (AST) < 5 U/L (15-37) L Alanine Aminotransferase (ALT) < 6 U/L (14-59) L Alkaline Phosphatase 64 U/L (46-116) Creatine Kinase 48 U/L (26-192) Troponin I Quantitative < 0.017 ng/mL (0.000-0.055) Total Protein 7.4 g/dL (6.4-8.2) Albumin 3.0 g/dL (3.4-5.0) L Albumin/Globulin Ratio 0.7 (1.0-1.7) L Lipase 162 U/L (73-393) Laboratory Tests 10/16/19 13:50 Vital Signs: Vital Signs Date Time Temp Pulse Resp B/P (MAP) Pulse Ox O2 Delivery O2 Flow Rate FiO2 10/16/19 13:26 99.1 85 20 121/82 (95) 100 Room Air 99.1 EKG: EKG: nsr @ 87 bpm, normal intervals, No twis/farhan/std Radiology/Procedures: Radiology/Procedures: []IMAGING REPORT Signed PATIENT: MARILU MANCIA: [id number] : 1975 LOCATION: ER AGE: 44 SEX: F EXAM STATUS: REG ER ORD. PHYSICIAN: CANDIE MATHUR DO REASON: weakness PROCEDURE: CT HEAD WO CONTRAST Exam: CT head INDICATION: Weakness TECHNIQUE: Sequential axial images through the head were obtained without the administration of IV contrast. Comparisons: 10/08/2019 FINDINGS: No focal parenchymal lesion or hemorrhage is identified. There is no midline shift or sulcal effacement. Stable hypodensity in the white matter of the left occipital lobe. No acute vascular territory infarction is identified. Galarza-white distinction is preserved. The ventricular system is within normal limits without compression hydrocephalus. The basal cisterns are well maintained. The visualized portions of the paranasal sinuses and mastoid air cells are well-pneumatized. No acute fractures. IMPRESSION: No acute intracranial abnormality. Exposure: One or more of the following in the visualized dose reduction techniques were utilized for this examination: 1. Automated exposure control 2. Adjustment of the MA and/or KV according to patient size Use of iterative of reconstructive technique Electronically signed by: Jodie Schultz MD (10/16/2019 4:02 PM) [id number] DICTATED and SIGNED BY: JODIE SCHULTZ MD DATE: 10/16/19 160 IMAGING REPORT Signed PATIENT: MARILU MANCIA: [id number] : 1975 LOCATION: ER AGE: 44 SEX: F EXAM STATUS: PRE ER ORD. PHYSICIAN: CANDIE MATHUR DO REASON: stomach samara PROCEDURE: CHEST AP ONLY EXAM: CHEST 1 VIEW History: Stomach pain COMPARISON: 05/02/2019. TECHNIQUE: Single portable radiograph of the chest FINDINGS: The cardiac silhouette is unremarkable. The lungs are clear bilaterally. The costophrenic sulci are clear and well demarcated. IMPRESSION: No radiographic evidence of an acute cardiopulmonary process. Electronically signed by: Hiram Nunn MD (10/16/2019 2:25 PM) [id number] DICTATED and SIGNED BY: HIRAM NUNN MD DATE: 10/16/19 1425 Course & Med Decision Making: Course & Med Decision Making Pertinent Labs and Imaging studies reviewed. (See chart for details) Concern for nonspecific generalized weakness. Labs show chronic normocytic anemia at baseline with non-anion gap hyperglycemia, poorly controlled diabetes. CT head and cxr with no acute process. Pt well appearing in ed, in no distress. Daughter later present in ed and states pt often presses her medical alert button and she was unaware of pt doing this today. Pt is at her baseline mental/physical functioning status. Strict ED return precautions were given for neurologic deficits, worsening a aphasia, weakness, sensory deficits or facial droop. Encouraged urgent outpatient follow-up with PMD. Life-threatening processes were considered (infection, electrolyte abnormality, cva, acs, etc) but are low suspicion at this time, given history and physical exam. Pt was educated on all prescription medications and adverse effects. All patient's questions were answered and pt was stable at time of discharge. I spoken with the patient and her caregivers. I explained the patient's condition, diagnoses and treatment plan based on the information available to me at this time. I have answered the patient and her caregiver's questions and addressed any concerns. The patient and her caregivers have a good understanding of patient's diagnosis, condition and treatment plan as can be expected at this point. Vital signs have been stable. Patient's condition is stable and appropriate for discharge from the emergency department. Patient will pursue further outpatient evaluation with primary care physician or other designated or consulting physician as outlined in the discharge instructions. The patient and/or caregivers are agreeable to this plan of care and follow-up instructions have been explained in detail. The patient and/or caregivers have received these instructions in written form and have expressed an understanding of the discharge instructions. The patient and/or caregivers are aware that any significant change of condition or worsening of symptoms should prompt immediate return to this or the closest emergency department or call to 911. Digna Disclaimer: Dragmariah Disclaimer: This electronic medical record was generated, in whole or in part, using a voice recognition dictation system. Departure Departure Impression: Primary Impression: Generalized weakness Disposition: 01 HOME, SELF-CARE Condition: STABLE Referrals: REJI CORREA MD (PCP) Patient Instructions: Weakness Justicifation of Admission Dx: Justifications for Admission: Justification of Admission Dx: N/A CANDIE MATHUR DO Oct 16, 2019 14:43
[2019-10-16 15:41] LABS: BASO # 0.1 x10^3/uL (0.0-0.2); BASO % 1 % (0-3); EOS # 0.5 x10^3/uL (0.0-0.7); EOS % 9 % (0-3); HEMATOCRIT 27.7 % (36.0-47.0); HEMOGLOBIN 9.1 g/dL (12.0-15.5); LYMPH # 1.6 x10^3/uL (1.0-4.8); LYMPH % 29 % (24-48); MEAN CORPUSCULAR HEMOGLOBIN 28 pg (25-35); MEAN CORPUSCULAR HGB CONC 33 g/dL (31-37); MEAN CORPUSCULAR VOLUME 86 fL (79-100); MONO # 0.6 x10^3/uL (0.0-1.1); MONO % 10 % (0-9); NEUT # 2.9 x10^3/uL (1.8-7.7); NEUT % 51 % (31-73); PLATELET COUNT 254 x10^3/uL (140-400); WHITE BLOOD COUNT 5.7 x10^3/uL (4.0-11.0)
[2019-10-16 15:59] LABS: PREG TEST PT QUAL NEGATIVE (NEG)
--- NOTE | 2019-10-16 16:05 | RAD ---
Exam: CT head INDICATION: Weakness TECHNIQUE: Sequential axial images through the head were obtained without the administration of IV contrast. Comparisons: 10/08/2019 FINDINGS: No focal parenchymal lesion or hemorrhage is identified. There is no midline shift or sulcal effacement. Stable hypodensity in the white matter of the left occipital lobe. No acute vascular territory infarction is identified. Galarza-white distinction is preserved. The ventricular system is within normal limits without compression hydrocephalus. The basal cisterns are well maintained. The visualized portions of the paranasal sinuses and mastoid air cells are well-pneumatized. No acute fractures. IMPRESSION: No acute intracranial abnormality. Exposure: One or more of the following in the visualized dose reduction techniques were utilized for this examination: 1. Automated exposure control 2. Adjustment of the MA and/or KV according to patient size Use of iterative of reconstructive technique Electronically signed by: Jodie Dalton MD (10/16/2019 4:02 PM) [id number]
[2019-10-16 16:57] VITALS: BP 126/68
--- NOTE | 2019-10-18 11:10 | EKG ---
[facility] [address] [place] [address] Test Date: 2019-10-16 Test Time: 13:33:35 Pat Name: MARILU MANCIA Department: Room: Gender: F [employer]: : 1975 Requested By: CANDIE MATHUR Order Number: [id number] Reading MD: Measurements Intervals [place] Rate: 87 P: 180 MT: 104 QRS: 15 QRSD: 82 T: 16 QT: 354 QTc: 427 Interpretive Statements SINUS RHYTHM NORMAL ECG RI6.02 No previous ECG available for comparison
== END 2019-10-16 17:11 | disposition home or self-care (01) ==
LOC: ER 13:26
DX: R53.1 Weakness (principal); G89.29 Other chronic pain; M79.604 Pain in right leg; R51 Headache; I11.0 Hypertensive heart disease with heart failure; I50.9 Heart failure, unspecified; E11.9 Type 2 diabetes mellitus without complications; I25.10 Atherosclerotic heart disease of native coronary artery without angina pectoris; I25.2 Old myocardial infarction; Z86.73 Personal history of transient ischemic attack (TIA), and cerebral infarction without residual deficits; Z87.891 Personal history of nicotine dependence; Z88.2 Allergy status to sulfonamides; Z88.8 Allergy status to other drugs, medicaments and biological substances
CPT/HCPCS: 36415; 70450; 71045; 80053; 82550; 83690; 83735; 84100; 84484; 84703; 85025; 93005; 99285

== ENCOUNTER 2020-02-06 12:18 | Emergency (ER) | payer MEDICAID ==
[~2020-02-06] VITALS: Ht 167.6 cm; Wt 63.0 kg
[~2020-02-06 12:18] MED LIST changes: +AMLO-186 PO; +AMLO-187 PO; -AMLO10TA8 PO; -AMLO5TAB10 PO; -CLIN300C8 PO; +CLIN300C9 PO
[2020-02-06 12:26] VITALS: BP 183/106
--- NOTE | 2020-02-06 12:38 | PHYS DOC ---
Past Medical History Past Medical History: CAD, CHF, CVA, Diabetes-Type II, Hypertension, [place], Stroke, Other Additional Past Medical Histor: 3 CARDIAC STENTS, LEFT BREAST CYST, PEG TUBE Past Surgical History: Angioplasty, Other Additional Past Surgical Histo: CARDIAC STENTS X'S 3,HEART CATH, PEG TUBE Smoking Status: Former Smoker Alcohol Use: None Drug Use: Marijuana General Adult EDM: Chief Complaint: UPPER EXTREMITY PAIN HPI: HPI: Patient is a 44 year old female with a prior history of stroke presents via EMS with a chief complaint of left shoulder pain. Patient had a mechanical fall landing on her left shoulder 2 days ago. Patient is extremely aphasic therefore history, physical review of systems are limited due to her aphasia. Patient describes moderate pain that is worse with range of motion of the left shoulder. Patient also has some discomfort around her PEG tube site after she was given her medications this morning. Patient denies any nausea or vomiting. I discussed the patient's care in case with her daughter over the phone who states that she had a fall 2 days ago but pain began this morning. She also stated that she gave her mother medications via the PEG tube this morning without feedings which may have caused her discomfort. She states that the feedings have been going on smoothly. Review of Systems: Review of Systems: Constitutional: Denies fever or chills. [] Eyes: Denies change in visual acuity. [] HENT: Denies nasal congestion or sore throat. [] Respiratory: Denies cough or shortness of breath. [] Cardiovascular: Denies chest pain or edema. [] GI: Complains of abdominal pain around her PEG tube site but no nausea, vomiting, bloody stools or diarrhea. [] : Denies dysuria. [] Musculoskeletal: Denies back pain but has left shoulder pain Integument: Denies rash. [] Neurologic: Denies headache, focal weakness or sensory changes. [] Endocrine: Denies polyuria or polydipsia. [] Lymphatic: Denies swollen glands. [] Psychiatric: Denies depression or anxiety. [] Heart Score: Risk Factors: Risk Factors: DM, Current or recent (<one month) smoker, HTN, HLP, family history of CAD, obesity. Risk Scores: Score 0 - 3: 2.5% MACE over next 6 weeks - Discharge Home Score 4 - 6: 20.3% MACE over next 6 weeks - Admit for Clinical Observation Score 7 - 10: 72.7% MACE over next 6 weeks - Early Invasive Strategies Allergies: Allergies: Allergies Coded Allergies Type Severity Reaction Last Updated Verified Sulfa (Sulfonamide Antibiotics) Allergy Intermediate hives 04/21/19 Yes lisinopril Allergy Intermediate hives 04/21/19 Yes Physical Exam: PE: Constitutional: Well developed, well nourished, no acute distress, non-toxic appearance. [] HENT: Normocephalic, atraumatic, bilateral external ears normal, no trismus nose normal. [] Eyes: PERRLA, EOMI, conjunctiva normal, no discharge. [] Neck: Normal range of motion, no tenderness, supple, no stridor. [] Cardiovascular:Heart rate regular rhythm, peripheral pulse intact cap refill is brisk Lungs & Thorax: Bilateral breath sounds clear, no respiratory distress Abdomen: Soft with minimal tenderness around PEG tube site, no guarding or rebound, no erythema or skin changes around her PEG tube site no masses, no pu lsatile masses. [] Skin: Warm, dry, no erythema, no rash. [] Back: No tenderness, no CVA tenderness. [] Extremities: No tenderness, no cyanosis, no clubbing, ROM intact, no edema. [] Neurologic: Alert and oriented X 3, right lower extremity weakness which is pre- existing, expressive aphasia is present Psychologic: Affect normal, judgement normal, mood normal. [] Current Patient Data: Vital Signs: Vital Signs Date Time Temp Pulse Resp B/P (MAP) Pulse Ox O2 Delivery O2 Flow Rate FiO2 02/06/20 12:26 98.0 95 18 183/106 (131) 94 Room Air 98.0 EKG: EKG: [] Radiology/Procedures: Radiology/Procedures: [][facility] [address] [place], [place] [id number] IMAGING REPORT Signed PATIENT: MARILU MANCIAOUNT: [id number] : 1975 LOCATION: ER AGE: 44 SEX: F EXAM STATUS: REG ER ORD. PHYSICIAN: RIKI DODD MD REASON: FALL, PT HAS PEG PAIN, NEEDS GASTROGRAFIN. 40cc [id number] given PROCEDURE: KUB PROCEDURE: XR SHOULDER_LEFT 2+ VIEWS, XR ABDOMEN 1V STUDY DATE: 02/06/2020 CLINICAL INDICATION / HISTORY: Reason: LEFT SHOULDER PAIN, S/P FALL 2 DAYS AGO / Spl. Instructions: / History: . TECHNIQUE: AP internal and external rotation views with a Y- view were obtained. COMPARISON: No relevant comparisons currently available. FINDINGS: There is suggestion of an os acromiale. Otherwise no fracture, dislocation or bone destruction is identified. There are no degenerative changes at the left AC joint. No calcifications are seen in relation to the rotator cuff insertion. IMPRESSION: Suggestion of an os acromiale. Correlate with the physical exam and consider CT if there is a high index of suspicion for bone bruise or fracture. Otherwise, no acute findings in the left shoulder. PROCEDURE: XR ABDOMEN 1V STUDY DATE: 02/06/2020 CLINICAL INDICATION / HISTORY: Pain at the PEG tube, status post fall a few days ago.. TECHNIQUE: Single AP image of the abdomen was obtained. COMPARISON: 10/13/[address] FINDINGS: There is some motion artifact. The visualized lung bases are clear. A nonobstructive bowel gas pattern is present. No organomegaly or pathologic calcifications are identified. No acute osseous abnormality. A PEG tube with enteric contrast in the gastic lumen is present. IMPRESSION: PEG tube remains in the gastric lumen with no evidence of contrast extravasation. Electronically signed by: Blanche Posada MD (02/06/2020 2:00 PM) [id number] DICTATED and SIGNED BY: BLANCHE POSADA MD DATE: 02/06/20 [id number] Course & Med Decision Making: Course & Med Decision Making 44-year-old female presents with left shoulder pain following a fall 2 days ago. Patient also has a pre-existing stroke.PEG tube has some discomfort slightly x-rays are reassuring. Patient otherwise currently stable for discharge outpatient follow-up. Pertinent Labs and Imaging studies reviewed. (See chart for details) [] Dragon Disclaimer: Dragmariah Disclaimer: This electronic medical record was generated, in whole or in part, using a voice recognition dictation system. Departure Departure Impression: Primary Impression: Contusion of left shoulder Additional Impression: Pain around PEG tube site Disposition: 01 DC HOME SELF CARE/HOMELESS Condition: STABLE Referrals: REJI CORREA MD (PCP) 2-3 DAYS Patient Instructions: Contusion Additional Instructions: EMERGENCY DEPARTMENT GENERAL DISCHARGE INSTRUCTIONS Thank you for coming to [facility] Emergency Department (ED) today and trusting us with you care. We trust that you had a positive experience in our Emergency Department. If you wish to speak to the department management, you may call the Director at [phone]. YOUR FOLLOW UP INSTRUCTIONS ARE FOLLOWS: 1. Do you have a private Doctor? If you do not have a private doctor, please ask for a resource list of physicians or clinics that may be able to assist you with follow up care. 2. The Emergency Physicain has interpreted your x-rays. The X-Ray specialist will also review them. If there is a change in the findings, you will be notified in 48 hours when at all possible. 3. A lab test or culture has been done, your results will be reviewed and you will be notified if you need a change in treatment. ADDITIONAL INSTRUCTIONS AND INFORMATION: 1. Your care today has been supervised by a physician who is specially trained in emergency care. Many problems require more than one evaluation for a complete diagnosis and treatment. We recommend that you schedule your follow up appointment as recommended to ensure complete treatment of you illness or injury. If you are unable to obtain follow up care and continue to have a problem, or if your condition worsens, we recommend that you return to the ED. 2. We are not able to safely determine your condition over the phone nor are we able to give sound medical advice over the phone. For these safety reasons, if you call for medical advice we will ask you to come to the ED for further evaluation. 3. If you have any questions regarding these discharge instructions please call the ED at [phone]. SAFETY INFORMATION: In the interest of safety, wellness, and injury prevention; we encourage you to wear your sealbelt, if you smoke; quite smoking, and we encourage family to use a protective helmet for bicycling and other sporting events that present an increased risk for head injury. IF YOUR SYMPTOMS WORSEN OR NEW SYMPTOMS DEVELOP, OR YOU HAVE CONCERNS ABOUT YOUR CONDITION; OR IF YOUR CONDITION WORSENS WHILE YOU ARE WAITING FOR YOUR FOLLOW UP APPOINTMENT; EITHER CONTACT YOUR PRIMARY CARE DOCTOR, THE PHYSICIAN WHOSE NAME AND NUMBER YOU WERE GIVEN, OR RETURN TO THE ED IMMEDIATELY. RIKI DODD MD Feb 06, 2020 12:38
[2020-02-06] MEDS ORDERED: IOHEXOL 300 MG/ML 50 ML VIAL. IJ ONE (13:00)
--- NOTE | 2020-02-06 14:02 | RAD ---
PROCEDURE: XR SHOULDER_LEFT 2+ VIEWS, XR ABDOMEN 1V STUDY DATE: 02/06/2020 CLINICAL INDICATION / HISTORY: Reason: LEFT SHOULDER PAIN, S/P FALL 2 DAYS AGO / Spl. Instructions: / History: . TECHNIQUE: AP internal and external rotation views with a Y- view were obtained. COMPARISON: No relevant comparisons currently available. FINDINGS: There is suggestion of an os acromiale. Otherwise no fracture, dislocation or bone destruct ion is identified. There are no degenerative changes at the left AC joint. No calcifications are seen in relation to the rotator cuff insertion. IMPRESSION: Suggestion of an os acromiale. Correlate with the physical exam and consider CT if there is a high index of suspicion for bone bruise or fracture. Otherwise, no acute findings in the left s houlder. PROCEDURE: XR ABDOMEN 1V STUDY DATE: 02/06/2020 CLINICAL INDICATION / HISTORY: Pain at the PEG tube, status post fall a few days ago.. TECHNIQUE: Single AP image of the abdomen was obtained. COMPARISON: 10/13/[address] FINDINGS: There is some motion artifact. The visualized lung bases are clear. A nonobstructive bowel gas pattern is present. No organomegaly or pathologic calcifications are identified. No acute osseo us abnormality. A PEG tube with enteric contrast in the gastic lumen is present. IMPRESSION: PEG tube remains in the gastric lumen with no evidence of contrast extravasation. Electronically signed by: Mariah Posada MD (02/06/2020 2:00 PM) [id number]
== END 2020-02-06 14:34 | disposition home or self-care (01) ==
LOC: ER 12:18
DX: S40.012A Contusion of left shoulder, initial encounter (principal); R10.9 Unspecified abdominal pain; I11.0 Hypertensive heart disease with heart failure; I50.9 Heart failure, unspecified; E11.9 Type 2 diabetes mellitus without complications; I25.10 Atherosclerotic heart disease of native coronary artery without angina pectoris; I25.2 Old myocardial infarction; Z86.73 Personal history of transient ischemic attack (TIA), and cerebral infarction without residual deficits; Z95.5 Presence of coronary angioplasty implant and graft; Z87.891 Personal history of nicotine dependence; Z88.2 Allergy status to sulfonamides; Z88.8 Allergy status to other drugs, medicaments and biological substances; W18.39XA Other fall on same level, initial encounter; Y93.89 Activity, other specified; Y92.89 Other specified places as the place of occurrence of the external cause; Y99.8 Other external cause status
CPT/HCPCS: 73030; 74018; 99284; A4565; Q9967

== ENCOUNTER 2020-04-10 21:01 | Emergency (ER) | payer MEDICAID ==
[~2020-04-10] VITALS: Ht 160 cm; Wt 63.0 kg
[~2020-04-10 21:01] MED LIST changes: -ISOS30TA4 PO; +ISOS30TA68 PO; -LISI-334 PO; +LISI20TA18 PO
--- NOTE | 2020-04-10 22:20 | RAD ---
Exam: CT head INDICATION: Altered mental status TECHNIQUE: Sequential axial images through the head were obtained without the administration of IV co ntrast. Comparisons: 10/16/2019 FINDINGS: No focal parenchymal lesion or hemorrhage is identified. There is no midline shift or sulcal effaceme nt. Patchy hypodensity in the periventricular white matter, similar when compared to prior exam. No acute vascular territory infarction is identified. Galarza-white distinction is preserved. The ventricular system is within normal limits without compression hydrocephalus. The basal cisterns are well maintained. The visualized portions of the paranasal sinuses and mastoid air cells are well-pneumatized. No acute fractures. IMPRESSION: No acute intracranial abnormality. Exposure: One or more of the following in the visualized dose reduction techniques were utilized for this examination: 1. Automated exposure control 2. Adjustment of the MA and/or KV according to patient size Use of iterative of reconstructive technique Electronically signed by: Jodie Dalton MD (04/10/2020 10:18 PM) [facility]
[2020-04-10 22:47] LABS: BASO # 0.1 x10^3/uL (0.0-0.2); BASO % 1 % (0-3); EOS # 0.5 x10^3/uL (0.0-0.7); EOS % 10 % (0-3); HEMATOCRIT 27.3 % (36.0-47.0); HEMOGLOBIN 8.6 g/dL (12.0-15.5); LYMPH # 1.3 x10^3/uL (1.0-4.8); LYMPH % 26 % (24-48); MEAN CORPUSCULAR HEMOGLOBIN 25 pg (25-35); MEAN CORPUSCULAR HGB CONC 32 g/dL (31-37); MEAN CORPUSCULAR VOLUME 80 fL (79-100); MONO # 0.6 x10^3/uL (0.0-1.1); MONO % 11 % (0-9); NEUT # 2.7 x10^3/uL (1.8-7.7); NEUT % 51 % (31-73); PLATELET COUNT 399 x10^3/uL (140-400); RED CELL DISTRIBUTION WIDTH 17.9 % (11.5-14.5); WHITE BLOOD COUNT 5.2 x10^3/uL (4.0-11.0)
[2020-04-10 22:57] LABS: CREATININE 0.9 mg/dL (0.6-1.0); GFR 81.6; POTASSIUM 3.3 mmol/L (3.5-5.1)
[2020-04-10 23:03] LABS: ALBUMIN 3.2 g/dL (3.4-5.0); ALBUMIN/GLOBULIN RATIO 0.7 (1.0-1.7); TOTAL BILIRUBIN 0.3 mg/dL (0.2-1.0); TOTAL PROTEIN 7.7 g/dL (6.4-8.2)
[2020-04-10 23:25] LABS: BILIRUBIN,URINE SMALL (NEG); CLARITY,URINE CLEAR; COLOR,URINE YELLOW; NITRITE,URINE NEGATIVE (NEG); PH,URINE 5.5 (<5.0-8.0); PROTEIN,URINE >=300 mg/dL (NEG-TRACE)
[2020-04-10 23:29] LABS: AMPHETAMINE/METHAMPHETAMINE NEG (NEG); BARBITURATES NEG (NEG); BENZODIAZEPINES NEG (NEG); CANNABINOIDS POS (NEG); COCAINE NEG (NEG); METHADONE NEG (NEG); OPIATES NEG (NEG); PHENCYCLIDINE NEG (NEG)
[2020-04-10 23:33] LABS: BACTERIA,URINE 0 /HPF (0-FEW); RBC,URINE 0 /HPF (0-2); WBC,URINE RARE /HPF (0-4)
[2020-04-10 23:34] LABS: HYALINE CASTS, URINE OCCASIONAL /HPF
--- NOTE | 2020-04-11 01:21 | PHYS DOC ---
Past Medical History Past Medical History: CAD, CHF, CVA, Diabetes-Type II, Hypertension, [place], Stroke, Other Additional Past Medical Histor: 3 CARDIAC STENTS, LEFT BREAST CYST, PEG TUBE Past Surgical History: Angioplasty, Other Additional Past Surgical Histo: CARDIAC STENTS X'S 3,HEART CATH, PEG TUBE Smoking Status: Former Smoker Alcohol Use: None Drug Use: Marijuana General Adult EDM: Chief Complaint: DIZZY/LIGHT HEADED HPI: HPI: Patient is a 44 year old female who presents to the emergency department via EMS with chief complaints from family that the patient might be feeling lightheaded. The patient has a history of CVA with expressive aphasia. Patient also has a past medical history of coronary artery disease congestive heart failure, type 2 diabetes, hypertension, [place], is on a PEG tube feeding. Patient is unable to communicate verbally. HPI limited related to patient's CVA history and expressive aphasia history. Called patient's primary caregiver who is her daughter at home whom stated that she thinks the patient was feeling lightheaded but was not sure so she sent her to the emergency department related to her past stroke history. Review of Systems: Review of Systems: 14 body systems of review of systems have been reviewed. See HPI for pertinent positives and negative responses, otherwise all other systems are negative, nonpertinent or noncontributory. Heart Score: Risk Factors: Risk Factors: DM, Current or recent (<one month) smoker, HTN, HLP, family history of CAD, obesity. Risk Scores: Score 0 - 3: 2.5% MACE over next 6 weeks - Discharge Home Score 4 - 6: 20.3% MACE over next 6 weeks - Admit for Clinical Observation Score 7 - 10: 72.7% MACE over next 6 weeks - Early Invasive Strategies Allergies: Allergies: Allergies Coded Allergies Type Severity Reaction Last Updated Verified Sulfa (Sulfonamide Antibiotics) Allergy Intermediate hives 04/21/19 Yes lisinopril Allergy Intermediate hives 04/21/19 Yes Physical Exam: PE: Constitutional: Well developed, well nourished, no acute distress, non-toxic appearance. Patient is nonverbal related to CVA with expressive aphasia. Aphasia at baseline when compared to prior emergency department visits HENT: Normocephalic, atraumatic, bilateral external ears normal, oropharynx moist, no oral exudates, nose normal. Eyes: PERRLA, EOMI, conjunctiva normal, no discharge. Neck: Normal range of motion, no tenderness, supple, no stridor. Cardiovascular:Heart rate regular rhythm, no murmur, heart sounds S1-S2. Lungs & Thorax: Bilateral breath sounds clear to auscultation Abdomen: Bowel sounds normal, soft, no tenderness, no masses, no pulsatile masses. Skin: Warm, dry, no erythema, no rash. Back: No tenderness, no CVA tenderness. Extremities: No tenderness, no cyanosis, no clubbing, ROM intact, no edema. Neurologic: Alert and unable to assess orientation as patient is nonverbal and has expressive aphasia history, no focal deficits appreciated Psychologic: Patient appears to be in normal mood, unable to assess affect related to patient's aphasia history. Current Patient Data: Labs: Laboratory Tests Test 04/10/20 22:40 04/10/20 23:15 White Blood Count 5.2 x10^3/uL Red Blood Count 3.40 x10^6/uL Hemoglobin 8.6 g/dL Hematocrit 27.3 % Mean Corpuscular Volume 80 fL Mean Corpuscular Hemoglobin 25 pg Mean Corpuscular Hemoglobin Concent 32 g/dL Red Cell Distribution Width 17.9 % Platelet Count 399 x10^3/uL Neutrophils (%) (Auto) 51 % Lymphocytes (%) (Auto) 26 % Monocytes (%) (Auto) 11 % Eosinophils (%) (Auto) 10 % Basophils (%) (Auto) 1 % Neutrophils # (Auto) 2.7 x10^3/uL Lymphocytes # (Auto) 1.3 x10^3/uL Monocytes # (Auto) 0.6 x10^3/uL Eosinophils # (Auto) 0.5 x10^3/uL Basophils # (Auto) 0.1 x10^3/uL Sodium Level 139 mmol/L Potassium Level 3.3 mmol/L Chloride Level 105 mmol/L Carbon Dioxide Level 24 mmol/L Anion Gap 10 Blood Urea Nitrogen 9 mg/dL Creatinine 0.9 mg/dL Estimated GFR (Cockcroft-Gault) 81.6 BUN/Creatinine Ratio 10 Glucose Level 59 mg/dL Calcium Level 9.0 mg/dL Total Bilirubin 0.3 mg/dL Aspartate Amino Transf (AST/SGOT) 15 U/L Alanine Aminotransferase (ALT/SGPT) 14 U/L Alkaline Phosphatase 58 U/L Total Protein 7.7 g/dL Albumin 3.2 g/dL Albumin/Globulin Ratio 0.7 Urine Collection Type U cath Urine Color Yellow Urine Clarity Clear Urine pH 5.5 Urine Specific Redrock >=1.030 Urine Protein >=300 mg/dL Urine Glucose (UA) Negative mg/dL Urine Ketones (Stick) Negative mg/dL Urine Blood Negative Urine Nitrite Negative Urine Bilirubin Small Urine Urobilinogen Dipstick 1.0 mg/dL Urine Leukocyte Esterase Negative Urine RBC 0 /HPF Urine WBC Rare /HPF Urine Squamous Epithelial Cells Few /LPF Urine Bacteria 0 /HPF Urine Hyaline Casts Occasional /HPF Urine Mucus Mod /LPF Urine Opiates Screen Neg Urine Methadone Screen Neg Urine Barbiturates Neg Urine Phencyclidine Screen Neg Urine Amphetamine/Methamphetamine Neg Urine Benzodiazepines Screen Neg Urine Cocaine Screen Neg Urine Cannabinoids Screen Pos Urine Ethyl Alcohol Neg Laboratory Tests Test 04/10/20 22:40 04/10/20 23:15 White Blood Count 5.2 x10^3/uL (4.0-11.0) Red Blood Count 3.40 x10^6/uL (3.50-5.40) L Hemoglobin 8.6 g/dL (12.0-15.5) L Hematocrit 27.3 % (36.0-47.0) L Mean Corpuscular Volume 80 fL (79-100) Mean Corpuscular Hemoglobin 25 pg (25-35) Mean Corpuscular Hemoglobin Concent 32 g/dL (31-37) Red Cell Distribution Width 17.9 % (11.5-14.5) H Platelet Count 399 x10^3/uL (140-400) Neutrophils (%) (Auto) 51 % (31-73) Lymphocytes (%) (Auto) 26 % (24-48) Monocytes (%) (Auto) 11 % (0-9) H Eosinophils (%) (Auto) 10 % (0-3) H Basophils (%) (Auto) 1 % (0-3) Neutrophils # (Auto) 2.7 x10^3/uL (1.8-7.7) Lymphocytes # (Auto) 1.3 x10^3/uL (1.0-4.8) Monocytes # (Auto) 0.6 x10^3/uL (0.0-1.1) Eosinophils # (Auto) 0.5 x10^3/uL (0.0-0.7) Basophils # (Auto) 0.1 x10^3/uL (0.0-0.2) Sodium Level 139 mmol/L (136-145) Potassium Level 3.3 mmol/L (3.5-5.1) L Chloride Level 105 mmol/L (98-107) Carbon Dioxide Level 24 mmol/L (21-32) Anion Gap 10 (6-14) Blood Urea Nitrogen 9 mg/dL (7-20) Creatinine 0.9 mg/dL (0.6-1.0) Estimated GFR (Cockcroft-Gault) 81.6 BUN/Creatinine Ratio 10 (6-20) Glucose Level 59 mg/dL (70-99) L Calcium Level 9.0 mg/dL (8.5-10.1) Total Bilirubin 0.3 mg/dL (0.2-1.0) Aspartate Amino Transferase (AST) 15 U/L (15-37) Alanine Aminotransferase (ALT) 14 U/L (14-59) Alkaline Phosphatase 58 U/L (46-116) Total Protein 7.7 g/dL (6.4-8.2) Albumin 3.2 g/dL (3.4-5.0) L Albumin/Globulin Ratio 0.7 (1.0-1.7) L Urine Collection Type U cath Urine Color Yellow Urine Clarity Clear Urine pH 5.5 (<5.0-8.0) Urine Specific Redrock >=1.030 (1.000-1.030) Urine Protein >=300 mg/dL (NEG-TRACE) Urine Glucose (UA) Negative mg/dL (NEG) Urine Ketones (Stick) Negative mg/dL (NEG) Urine Blood Negative (NEG) Urine Nitrite Negative (NEG) Urine Bilirubin Small (NEG) Urine Urobilinogen Dipstick 1.0 mg/dL (0.2 mg/dL) Urine Leukocyte Esterase Negative (NEG) Urine RBC 0 /HPF (0-2) Urine WBC Rare /HPF (0-4) Urine Squamous Epithelial Cells Few /LPF Urine Bacteria 0 /HPF (0-FEW) Urine Hyaline Casts Occasional /HPF Urine Mucus Mod /LPF Urine Opiates Screen Neg (NEG) Urine Methadone Screen Neg (NEG) Urine Barbiturates Neg (NEG) Urine Phencyclidine Screen Neg (NEG) Urine Amphetamine/Methamphetamine Neg (NEG) Urine Benzodiazepines Screen Neg (NEG) Urine Cocaine Screen Neg (NEG) Urine Cannabinoids Screen Pos (NEG) Urine Ethyl Alcohol Neg (NEG) Laboratory Tests 04/10/20 22:40 Laboratory Tests 04/10/20 22:40 Vital Signs: Vital Signs Date Time Temp Pulse Resp B/P (MAP) Pulse Ox O2 Delivery O2 Flow Rate FiO2 04/10/20 22:30 96 98 04/10/20 21:30 170/95 (120) 04/10/20 21:15 98.6 18 Room Air 98.6 EKG: EKG: [] Radiology/Procedures: Radiology/Procedures: PATIENT: MARILU MANCIA YACCOUNT: [id number] : 1975 LOCATION: ER AGE: 44 SEX: F EXAM STATUS: REG ER ORD. PHYSICIAN: JASKARAN THOMAS APRN REASON: ALTERED MENTAL STATUS PROCEDURE: CT HEAD WO CONTRAST Exam: CT head INDICATION: Altered mental status TECHNIQUE: Sequential axial images through the head were obtained without the administration of IV contrast. Comparisons: 10/16/2019 FINDINGS: No focal parenchymal lesion or hemorrhage is identified. There is no midline shift or sulcal effacement. Patchy hypodensity in the periventricular white matter, similar when compared to prior exam. No acute vascular territory infarction is identified. Galarza-white distinction is preserved. The ventricular system is within normal limits without compression hydrocephalus. The basal cisterns are well maintained. The visualized portions of the paranasal sinuses and mastoid air cells are well- pneumatized. No acute fractures. IMPRESSION: No acute intracranial abnormality. Exposure: One or more of the following in the visualized dose reduction techniques were utilized for this examination: 1. Automated exposure control 2. Adjustment of the MA and/or KV according to patient size Use of iterative of reconstructive technique Electronically signed by: Jdoie Schultz MD (04/10/2020 10:18 PM) [facility] DICTATED and SIGNED BY: JODIE SCHULTZ MD DATE: 04/10/20 [id number] 0 Course & Med Decision Making: Course & Med Decision Making Pertinent Labs and Imaging studies reviewed. (See chart for details) 44-year-old female, vital signs reviewed, sent to the emergency department for concerns of possible dizziness at home. A CT head was ordered along with basic labs, no acute findings from CT head and serum lab work was at baseline. Patient was in no acute distress and was nontoxic in the emergency department. When patient's daughter was called who cares for her at home, patient's daughter was concerned that she might be dizzy but was not sure and was scared that she has had a stroke in the past so wanted her to be seen in the emergency dep artment. The patient is currently at baseline, however patient was given her insulin dose at home and had not eaten, the patient will be fed through PEG tube Ensure in order extrudes prior to being discharged home. Discussed with patient's daughter discharge home instructions, strict return to ER precautions or concerns given for neurological deficits, worsening of her aphasia, or other physical concerns. Discussed with patient's daughter to have follow-up with primary care physician for ongoing symptoms. Low suspicion of life-threatening processes at this time given patient's physical examination, history, and CT head/lab results. I have spoken with patient's caregivers regarding the patient's condition in the emergency department, diagnosis, and treatment plan along with follow-up with primary care, patient's caregiver gave verbal understanding of discharge home instructions, follow-up with primary care, return to ER precautions and concerns, was discharged home without incident. Digna Disclaimer: Digna Disclaimer: This electronic medical record was generated, in whole or in part, using a voice recognition dictation system. Departure Departure Impression: Primary Impression: Feared condition not demonstrated Disposition: 01 DC HOME SELF CARE/HOMELESS Condition: GOOD Referrals: REJI CORREA MD (PCP) Additional Instructions: Use follow-up with your primary care for ongoing symptoms, return to the emergency department for worsening symptoms or other concerns. EMERGENCY DEPARTMENT GENERAL DISCHARGE INSTRUCTIONS Thank you for coming to [facility] Emergency Department (ED) today and trusting us with you care. We trust that you had a positive experience in our Emergency Department. If you wish to speak to the department management, you may call the Director at [phone]. YOUR FOLLOW UP INSTRUCTIONS ARE FOLLOWS: 1. Do you have a private Doctor? If you do not have a private doctor, please ask for a resource list of physicians or clinics that may be able to assist you with follow up care. 2. The Emergency Physicain has interpreted your x-rays. The X-Ray specialist will also review them. If there is a change in the findings, you will be notified in 48 hours when at all possible. 3. A lab test or culture has been done, your results will be reviewed and you will be notified if you need a change in treatment. ADDITIONAL INSTRUCTIONS AND INFORMATION: 1. Your care today has been supervised by a physician who is specially trained in emergency care. Many problems require more than one evaluation for a complete diagnosis and treatment. We recommend that you schedule your follow up appointment as recommended to ensure complete treatment of you illness or injury. If you are unable to obtain follow up care and continue to have a problem, or if your condition worsens, we recommend that you return to the ED. 2. We are not able to safely determine your condition over the phone nor are we able to give sound medical advice over the phone. For these safety reasons, if you call for medical advice we will ask you to come to the ED for further evaluation. 3. If you have any questions regarding these discharge instructions please call the ED at [phone]. SAFETY INFORMATION: In the interest of safety, wellness, and injury prevention; we encourage you to wear your sealbelt, if you smoke; quite smoking, and we encourage family to use a protective helmet for bicycling and other sporting events that present an increased risk for head injury. IF YOUR SYMPTOMS WORSEN OR NEW SYMPTOMS DEVELOP, OR YOU HAVE CONCERNS ABOUT YOUR CONDITION; OR IF YOUR CONDITION WORSENS WHILE YOU ARE WAITING FOR YOUR FOLLOW UP APPOINTMENT; EITHER CONTACT YOUR PRIMARY CARE DOCTOR, THE PHYSICIAN WHOSE NAME AND NUMBER YOU WERE GIVEN, OR RETURN TO THE ED IMMEDIATELY. JASKARAN THOMAS APRN Apr 11, 2020 01:21
[2020-04-11 06:30] VITALS: BP 158/82
== END 2020-04-11 06:30 | disposition home or self-care (01) ==
LOC: ER 21:01
DX: R42 Dizziness and giddiness (principal); E11.9 Type 2 diabetes mellitus without complications; I11.0 Hypertensive heart disease with heart failure; I50.9 Heart failure, unspecified; I25.2 Old myocardial infarction; F12.90 Cannabis use, unspecified, uncomplicated; Z86.73 Personal history of transient ischemic attack (TIA), and cerebral infarction without residual deficits; Z98.890 Other specified postprocedural states; Z90.89 Acquired absence of other organs; Z87.891 Personal history of nicotine dependence; Z88.2 Allergy status to sulfonamides; Z88.8 Allergy status to other drugs, medicaments and biological substances
CPT/HCPCS: 36415; 70450; 80053; 80307; 81001; 82962; 85025; 99285

== ENCOUNTER 2021-04-22 01:02 | Observation (INO) | payer MEDICAID ==
[~2021-04-22] VITALS: Ht 162.6 cm; Wt 61.4 kg
[2021-04-22] VITALS (12 sets, daily range): BP systolic 147–165; BP diastolic 82–95
[~2021-04-22 01:02] MED LIST changes: +CLIN-94 PO; -CLIN300C9 PO; -DOXY100C2 PO; +DOXY100C3 PO
[2021-04-22] MEDS ORDERED: MORPHINE SULFATE 4 MG/ML INJ. IVP ONE (02:00)
[2021-04-22 02:48] LABS: BASO # 0.1 x10^3/uL (0.0-0.2); BASO % 1 % (0-3); CREATININE 0.9 mg/dL (0.6-1.0); EOS # 1.1 x10^3/uL (0.0-0.7); EOS % 17 % (0-3); GFR 81.2; LYMPH # 2.3 x10^3/uL (1.0-4.8); LYMPH % 36 % (24-48); MEAN CORPUSCULAR HEMOGLOBIN 20 pg (25-35); MEAN CORPUSCULAR HGB CONC 29 g/dL (31-37); MEAN CORPUSCULAR VOLUME 69 fL (79-100); MONO # 0.5 x10^3/uL (0.0-1.1); MONO % 8 % (0-9); NEUT # 2.5 x10^3/uL (1.8-7.7); NEUT % 39 % (31-73); PLATELET COUNT 311 x10^3/uL (140-400); POTASSIUM 3.4 mmol/L (3.5-5.1); RED BLOOD COUNT 3.16 x10^6/uL (3.50-5.40); RED CELL DISTRIBUTION WIDTH 20.1 % (11.5-14.5); WHITE BLOOD COUNT 6.5 x10^3/uL (4.0-11.0)
[2021-04-22 02:54] LABS: ALBUMIN 3.1 g/dL (3.4-5.0); ALBUMIN/GLOBULIN RATIO 0.7 (1.0-1.7); TOTAL BILIRUBIN 0.2 mg/dL (0.2-1.0); TOTAL PROTEIN 7.5 g/dL (6.4-8.2)
[2021-04-22 02:57] LABS: HEMOGLOBIN 6.5 g/dL (12.0-15.5)
[2021-04-22] MEDS ORDERED: IOHEXOL 300 MG/ML 100ML VIAL. IV ONE (03:00)
[2021-04-22] MEDS ORDERED: CONTRAST GIVEN. MC PRN (03:15)
--- NOTE | 2021-04-22 03:17 | PHYS DOC ---
Past Medical History Past Medical History: CAD, CHF, CVA, Diabetes-Type II, Hypertension, [place], Stroke, Other Additional Past Medical Histor: 3 CARDIAC STENTS, LEFT BREAST CYST, PEG TUBE Past Surgical History: Other Additional Past Surgical Histo: J tube Smoking Status: Never Smoker Alcohol Use: None Drug Use: Marijuana General Adult EDM: Chief Complaint: LOWER EXTREMITY SWELLING HPI: HPI: Patient is a 45 year old FEMALE past medical history of CVA, CAD, Hypertension presents for evaluation due to abdominal discomfort. On arrival patient pointing to her peg tube site. Daughter states patient has been picking at her peg tube x 1 week. Daughter does not report any vomiting but patient has had diarrhea. Patient is non verbal secondary to previous cva Review of Systems: Review of Systems: Constitutional: Denies fever or chills. [] Eyes: Denies change in visual acuity. [] HENT: Denies nasal congestion or sore throat. [] Respiratory: Denies cough or shortness of breath. [] Cardiovascular: Denies chest pain or edema. [] GI: Denies , nausea, vomiting, bloody stools positive abdominal pain and diarrhea. [] : Denies dysuria. [] Musculoskeletal: Denies back pain or joint pain. [] Integument: Denies rash. [] Neurologic: Denies headache, focal weakness or sensory changes. [] Endocrine: Denies polyuria or polydipsia. [] Lymphatic: Denies swollen glands. [] Psychiatric: Denies depression or anxiety. [] Heart Score: C/O Chest Pain: N/A Risk Factors: Risk Factors: DM, Current or recent (<one month) smoker, HTN, HLP, family history of CAD, obesity. Risk Scores: Score 0 - 3: 2.5% MACE over next 6 weeks - Discharge Home Score 4 - 6: 20.3% MACE over next 6 weeks - Admit for Clinical Observation Score 7 - 10: 72.7% MACE over next 6 weeks - Early Invasive Strategies Current Medications: Current Medications Medications (Trade) Dose Ordered Sig/Payton Start Time Stop Time Status Last Admin Dose Admin Info (CONTRAST GIVEN -- Rx MONITORING) 1 each PRN DAILY PRN 04/22/21 03:15 04/24/21 03:14 Iohexol (Omnipaque 300 Mg/ml) 75 ml 1X ONCE 04/22/21 03:00 04/22/21 03:01 DC Morphine Sulfate (Morphine Sulfate) 4 mg 1X ONCE 04/22/21 02:00 04/22/21 02:01 DC Allergies: Allergies: Allergies Coded Allergies Type Severity Reaction Last Updated Verified Sulfa (Sulfonamide Antibiotics) Allergy Intermediate hives 04/21/19 Yes lisinopril Allergy Intermediate hives 04/21/19 Yes Physical Exam: PE: Constitutional: Well developed, well nourished, no acute distress, non-toxic appearance. [] HENT: Normocephalic, atraumatic, bilateral external ears normal, oropharynx moist, no oral exudates, nose normal. [] Eyes: PERRLA, EOMI, conjunctiva normal, no discharge. [] Neck: Normal range of motion, no tenderness, supple, no stridor. [] Cardiovascular:Heart rate regular rhythm, no murmur [] Lungs & Thorax: Bilateral breath sounds clear to auscultation [] Abdomen: Bowel sounds normal, soft, no tenderness, no masses, no pulsatile masses. [] Skin: Warm, dry, no erythema, no rash. [] Back: No tenderness, no CVA tenderness. [] Extremities: No tenderness, no cyanosis, no clubbing, ROM intact, no edema. [] Neurologic: Alert and oriented X 3, normal motor function, normal sensory function, no focal deficits noted. [] Psychologic: Affect normal, judgement normal, mood normal. [] Current Patient Data: Labs: Laboratory Tests Test 04/22/21 02:25 White Blood Count 6.5 x10^3/uL (4.0-11.0) Red Blood Count 3.16 x10^6/uL (3.50-5.40) L Hemoglobin 6.5 g/dL (12.0-15.5) *L Hematocrit 22.0 % (36.0-47.0) L Mean Corpuscular Volume 69 fL (79-100) L Mean Corpuscular Hemoglobin 20 pg (25-35) L Mean Corpuscular Hemoglobin Concent 29 g/dL (31-37) L Red Cell Distribution Width 20.1 % (11.5-14.5) H Platelet Count 311 x10^3/uL (140-400) Neutrophils (%) (Auto) 39 % (31-73) Lymphocytes (%) (Auto) 36 % (24-48) Monocytes (%) (Auto) 8 % (0-9) Eosinophils (%) (Auto) 17 % (0-3) H Basophils (%) (Auto) 1 % (0-3) Neutrophils # (Auto) 2.5 x10^3/uL (1.8-7.7) Lymphocytes # (Auto) 2.3 x10^3/uL (1.0-4.8) Monocytes # (Auto) 0.5 x10^3/uL (0.0-1.1) Eosinophils # (Auto) 1.1 x10^3/uL (0.0-0.7) H Basophils # (Auto) 0.1 x10^3/uL (0.0-0.2) Platelet Estimate Pending Sodium Level 141 mmol/L (136-145) Potassium Level 3.4 mmol/L (3.5-5.1) L Chloride Level 105 mmol/L (98-107) Carbon Dioxide Level 27 mmol/L (21-32) Anion Gap 9 (6-14) Blood Urea Nitrogen 8 mg/dL (7-20) Creatinine 0.9 mg/dL (0.6-1.0) Estimated GFR (Cockcroft-Gault) 81.2 BUN/Creatinine Ratio 9 (6-20) Glucose Level 167 mg/dL (70-99) H Calcium Level 9.0 mg/dL (8.5-10.1) Total Bilirubin 0.2 mg/dL (0.2-1.0) Aspartate Amino Transferase (AST) 12 U/L (15-37) L Alanine Aminotransferase (ALT) 11 U/L (14-59) L Alkaline Phosphatase 69 U/L (46-116) Total Protein 7.5 g/dL (6.4-8.2) Albumin 3.1 g/dL (3.4-5.0) L Albumin/Globulin Ratio 0.7 (1.0-1.7) L Lipase 214 U/L (73-393) Laboratory Tests 04/22/21 02:25 Laboratory Tests 04/22/21 02:25 Vital Signs: Vital Signs Date Time Temp Pulse Resp B/P (MAP) Pulse Ox O2 Delivery O2 Flow Rate FiO2 04/22/21 01:10 98.0 96 16 178/91 (120) 98 Room Air 98.0 EKG: EKG: [] Radiology/Procedures: Radiology/Procedures: [] Course & Med Decision Making: Course & Med Decision Making Pertinent Labs and Imaging studies reviewed. (See chart for details) []Patients pain treated with morphine with improvement. CT abd/pel no acute abnormalities. Hb noted to be <7. Patient with anemia of chronic disease but lower than normal. Will transfuse and admit to hospitalist. Digna Disclaimer: Digna Disclaimer: This electronic medical record was generated, in whole or in part, using a voice recognition dictation system. Departure Departure Impression: Primary Impression: Abdominal pain Additional Impression: Anemia Disposition: ADMITTED INPATIENT Referrals: REJI CORREA MD (PCP) EARLE GARDNER DO Apr 22, 2021 03:17
[2021-04-22 03:33] LABS: % BASOS 1 % (0-3); % EOS 12 % (0-5); % LYMPHS 40 % (24-48); % MONOS 5 % (0-10); % SEGS 42 % (35-66); ANISOCYTOSIS MOD; HYPOCHROMIA MARKED; MICROCYTOSIS MARKED; OVALOCYTES OCC; PLT ESTIMATE ADEQUATE (ADEQUATE); POLYCHROMASIA SLIGHT; SCHISTOCYTES OCC
--- NOTE | 2021-04-22 03:33 | RAD ---
EXAMINATION: CT abdomen and pelvis with IV contrast. INDICATION:45 years, Female, abdominal pain. TECHNIQUE: Axial CT images of the abdomen and pelvis were obtained. Coronal and sagittal reformatted performed. COMPARISON: 10/13/2019. Exposure: One or more of the following individualized dose reduction techniques were utilized for thi s examination: 1. Automated exposure control 2. Adjustment of the mA and/or kV according to patient size 3. Use of iterative reconstruction technique. FINDINGS: LOWER CHEST: Unremarkable. ABDOMEN/PELVIS: Liver is unremarkable. Contracted gallbladder which limits evaluation. No biliary ductal dilation. Ca lcified spleen. Unremarkable pancreas and adrenal glands. No hydronephrosis. Similar punctate nonobst ructing bilateral nephrolithiasis. Gastrostomy tube is in place. No bowel dilation. Appendix is not seen with certainty. Mild aortoiliac atherosclerotic calcifications without dilation. Mesenteric arteries and portal veins are patent. No pneumoperitoneum. No lymphadenopathy. Unremarkable urinary bladder. Anteverted uterus. Similar 2.7 c m soft tissue mass exophytic from the uterine fundus, likely fibroid. Small amount of free fluid, lik teressa physiologic. MUSCULOSKELETAL STRUCTURES: No suspicious osseous lesion or acute process. Mild diffuse anasarca. IMPRESSION: 1. No acute abnormality in the abdomen or pelvis. 2. Gastrostomy tube is in place. No bowel obstruction. 3. Similar punctate nonobstructing bilateral nephrolithiasis. Electronically signed by: Walter Platt MD (04/22/2021 3:31 AM) [facility]
[2021-04-22 06:00] LABS: PROTHROMBIN TIME PATIENT 14.3 SEC (11.7-14.0)
[2021-04-22] MEDS ORDERED: ESCITALOPRAM OX10 MG PO (06:41)
[2021-04-22] MEDS ORDERED: CLOP75TA PO (06:42)
[2021-04-22] MEDS ORDERED: PANT40TA77 PO (06:45)
[2021-04-22] MEDS ORDERED: DEXT1CAP PO (06:45)
[2021-04-22] MEDS ORDERED: DEXTROSE 50% 25 GM / 50ML DISP.SYRIN. IV PRN (09:45)
[2021-04-22] MEDS: IV NORMAL SALINE 1000ML BAG 1,000 ML IV SCH ×2 (09:45→20:42)
[2021-04-22] MEDS ORDERED: IV DEXTROSE 5 %-0.45 % NACL 1,000 ML IV ONE (10:00)
[2021-04-22] MEDS: INSULIN LISPRO 300 UNITS/3 ML VIAL. SQ SCH ×4 (10:00→20:46)
--- NOTE | 2021-04-22 10:08 | PDOC ---
GENERAL General: History and physical [id number] VITAL SIGNS Vital Signs/I&O: Vital Signs Date Time Temp Pulse Resp B/P (MAP) Pulse Ox O2 Delivery O2 Flow Rate FiO2 04/22/21 09:26 98.7 90 18 152/83 98.7 04/22/21 06:15 98 Room Air ALLERGIES Allergies: Allergies Coded Allergies Type Severity Reaction Last Updated Verified Sulfa (Sulfonamide Antibiotics) Allergy Intermediate hives 04/21/19 Yes lisinopril Allergy Intermediate hives 04/21/19 Yes MEDS Medications: Current Medications Medications (Trade) Dose Ordered Sig/Payton Route PRN Reason Start Time Stop Time Status Last Admin Dose Admin Iohexol (Omnipaque 300 Mg/ml) 75 ml 1X ONCE IV 04/22/21 03:00 04/22/21 03:01 DC 04/22/21 03:18 LAB Lab: Laboratory Tests Test 04/22/21 02:25 04/22/21 05:35 04/22/21 08:06 White Blood Count 6.5 x10^3/uL (4.0-11.0) Red Blood Count 3.16 x10^6/uL (3.50-5.40) L Hemoglobin 6.5 g/dL (12.0-15.5) *L Hematocrit 22.0 % (36.0-47.0) L Mean Corpuscular Volume 69 fL (79-100) L Mean Corpuscular Hemoglobin 20 pg (25-35) L Mean Corpuscular Hemoglobin Concent 29 g/dL (31-37) L Red Cell Distribution Width 20.1 % (11.5-14.5) H Platelet Count 311 x10^3/uL (140-400) Neutrophils (%) (Auto) 39 % (31-73) Lymphocytes (%) (Auto) 36 % (24-48) Monocytes (%) (Auto) 8 % (0-9) Eosinophils (%) (Auto) 17 % (0-3) H Basophils (%) (Auto) 1 % (0-3) Neutrophils # (Auto) 2.5 x10^3/uL (1.8-7.7) Lymphocytes # (Auto) 2.3 x10^3/uL (1.0-4.8) Monocytes # (Auto) 0.5 x10^3/uL (0.0-1.1) Eosinophils # (Auto) 1.1 x10^3/uL (0.0-0.7) H Basophils # (Auto) 0.1 x10^3/uL (0.0-0.2) Segmented Neutrophils % 42 % (35-66) Lymphocytes % 40 % (24-48) Monocytes % 5 % (0-10) Eosinophils % 12 % (0-5) H Basophils % 1 % (0-3) Platelet Estimate Adequate (ADEQUATE) Polychromasia Slight Hypochromasia Marked Anisocytosis Mod Microcytosis Marked Ovalocytes Occ Schistocytes Occ Sodium Level 141 mmol/L (136-145) Potassium Level 3.4 mmol/L (3.5-5.1) L Chloride Level 105 mmol/L (98-107) Carbon Dioxide Level 27 mmol/L (21-32) Anion Gap 9 (6-14) Blood Urea Nitrogen 8 mg/dL (7-20) Creatinine 0.9 mg/dL (0.6-1.0) Estimated GFR (Cockcroft-Gault) 81.2 BUN/Creatinine Ratio 9 (6-20) Glucose Level 167 mg/dL (70-99) H Calcium Level 9.0 mg/dL (8.5-10.1) Total Bilirubin 0.2 mg/dL (0.2-1.0) Aspartate Amino Transferase (AST) 12 U/L (15-37) L Alanine Aminotransferase (ALT) 11 U/L (14-59) L Alkaline Phosphatase 69 U/L (46-116) Total Protein 7.5 g/dL (6.4-8.2) Albumin 3.1 g/dL (3.4-5.0) L Albumin/Globulin Ratio 0.7 (1.0-1.7) L Lipase 214 U/L (73-393) Prothrombin Time 14.3 SEC (11.7-14.0) H Prothrombin Time INR 1.1 (0.8-1.1) Activated Partial Thromboplast Time 30 SEC (24-38) Glucose (Fingerstick) 99 mg/dL (70-99) Laboratory Tests 04/22/21 02:25 Laboratory Tests 04/22/21 02:25 Justifications for Admission Other Justification MATY CUNNINGHAM MD Apr 22, 2021 10:08
--- NOTE | 2021-04-22 10:41 | HP ---
DATE OF SERVICE: 04/22/2021 ADMIT DATE: 04/22/2021 HISTORY OF PRESENT ILLNESS: This patient is a 45-year-old woman who is a continuity outpatient of Dr. Diya Correa, who uses the [facility] hospitalists here at [facility]. I am rounding for them this weekend. The patient has marked debility after a stroke about 4 years ago that has left her with a right hemiparesis and mostly bedbound. She lives with her daughter, Ángela Mohr, who can best be found at [phone]. Ángela serves as her full-time caregiver medical DPOA and was able to deliver the history of present illness this morning by telephone. The patient is interactive, but nonverbal after stroke. Ángela tells me that she has been told that her mother had a stroke so young due to a history of drug use. 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 Daughter brought her mother to the Emergency Department when she noticed that she was picking at her PEG tube site for the last week or so and seems to have more abdominal discomfort along with looser stools. There has not been any nausea or vomiting. Daughter has not noticed any active bleeding, though patient is on her menses at this point. The patient tends to have heavy menses, though they have continued to be regular. Daughter tells me she herself is feeling fine. Neither the patient nor her daughter are vaccinated for COVID, but they are staying at home for the last couple of years. The patient has not had any recent antibiotics. She has been on metformin for quite some time and never had any trouble with it. This diarrhea is watery and brown and started a couple of weeks ago. All other systems are reviewed and negative. PAST MEDICAL HISTORY: 1. History of stroke related to uncontrolled diabetes and a history of drug use. The patient has sequelae of right hemiparesis and aphasia. 2. Type 2 diabetes that is now well controlled. 3. Hypertension. 4. Coronary artery disease. She has a history of 3 stents. Her last hospital admission was over 2 years ago. 5. Swallow deficit after stroke, but daughter tells me that the patient gets very agitated if she cannot take food and so daughter has been feeding her regular food for the last year without incident. She has not used her PEG tube at all for the last year. MEDICATIONS: Please see the medication reconciliation form. SOCIAL HISTORY: The patient lives with her daughter who serves as her full-time caregiver. She has a history of illicit drug use. I did not get more details on that from daughter. 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 She does not currently take any tobacco or alcohol. The patient is a full code. FAMILY HISTORY: Reviewed in full and noncontributory to the present illness. PHYSICAL EXAMINATION: VITAL SIGNS: Reviewed since admission and are notable for that the patient has been afebrile. Blood pressure has been in the 140s-150s/80s, heart rate is in the 80s and 90s and regular. She is breathing comfortably and saturating normally on room air. GENERAL: The patient is a debilitated 45-year-old woman, lying in her bed, appears comfortable, interactive, but nonverbal, in no acute distress. HEENT: Unremarkable for acute abnormality. NECK: Soft and supple. No adenopathy or thyromegaly noted. CHEST: Clear to auscultation. HEART: S1, S2 normal. Regular rate and rhythm. No murmurs or gallops are noted. ABDOMEN: Soft, nontender, nondistended. No masses or organomegaly noted. EXTREMITIES: Unremarkable for acute abnormality. She is contracted, unable to participate in full strength testing. LABORATORIES AND OTHER STUDIES: Admission white count is 6.5, hemoglobin is 6.5, platelet count is 311. The patient's MCV is quite low at 69. I will compare with prior levels. She likely is struggling with chronic iron deficiency anemia perhaps with concomitant thalassemia. The last hemoglobin in the record here in 2019 was 11. Daughter does not remember her last levels from outpatient labs. Chemistry panel is notable for serum creatinine of 0.9, potassium is 3.4. Liver function test is normal. Serum albumin is 3.1. IMAGING: Unremarkable and includes only a CT abdomen and pelvis. The gastrostomy tube appears to be in place. There is no bowel obstruction. There are several nonobstructing bilateral nephrolithiasis. Liver is unremarkable. Gallbladder unremarkable. Unremarkable pancreas and adrenal glands are noted. ASSESSMENT AND PLAN: Impression: A 45-year-old woman with significant debility, admitted from home with an altered mental status, found to have severe anemia with a hemoglobin of 6.5. This may be exclusively due to menstrual losses. The patient's daughter tells us that she has heavy and prolonged periods for the last couple of years. We will consult Gastroenterology to help us address her PEG tube. It may well be that we need to take it out if the patient and her daughter are understanding the risks of oral intake despite her swallow deficit. I will leave that discussion to Gastroenterology and the patient's daughter. It sounds like the patient has been picking and pulling at the tube. We will hold her aspirin and Plavix until her hemoglobin is in a safer range. We may be able to have her restart on only one of those medications as her cardiac stents are over 1-year-old. We have not consulted Cardiology as there are no active issues at this point, but they may be helpful and elucidating decisions regarding her antithrombotic regimen. We can use sequential compression devices for deep venous thrombosis prophylaxis. We will hold her diet for now pending a speech and swallow evaluation, but again we will need to have discussion with the patient's daughter regarding her mother's wishes on eating. Inpatient stay is most appropriate as we anticipate a length of stay of at least 2-3 midnights while we work this through. XENIA DR: Jose TID: [id number] CC: DIYA CORREA MD MTDD
--- NOTE | 2021-04-22 13:05 | PDOC2 ---
GI CONSULT Reason For Consult: anemia HPI: HPI: 43 y/o female with PEG now with anemia with Hgb 6.5 and reported vaginal bleeding. She has been tolerating PO at home and is not using her PEG. She had been reportedly picking at the PEG prior to admit Denies fever, n/v, reflux, diarrhea, constipation, EGD w/ 20Fr PEG placement by Dr. Gray for abnormal swallowing on 04/21/19 - esophagus, stomach, and duodenum normal. From previous encounters, no previous colonoscopy and no chronic GI symptoms. No GB, liver, pancreas, or PUD history. H/o CAD - ?on Plavix and ASA - "I don't know what that is" when asked about Plavix. PMH: PMH: PMH NV, CAD w/ stents, CVA, HTN, DM, CVA, ?MS (brain MRI 01/2019), ?myasthenia gravis (listed on chart), uterine fibroids, RATNA , LP, PEG FH: Family History: Cancer (prostate) Social History: Smoke: Quit ALCOHOL: rare Drugs: Other (past marijuana) FH: Family History: Cancer Social History: ALCOHOL: rare Drugs: Other ROS: unobtainable VItals: Vitals: Vital Signs Date Time Temp Pulse Resp B/P (MAP) Pulse Ox O2 Delivery O2 Flow Rate FiO2 04/22/21 10:39 97.9 83 18 165/86 97.9 04/22/21 06:15 98 Room Air Labs: Labs: Laboratory Tests Test 04/22/21 02:25 04/22/21 05:35 04/22/21 08:06 04/22/21 12:08 White Blood Count 6.5 x10^3/uL (4.0-11.0) Red Blood Count 3.16 x10^6/uL (3.50-5.40) Hemoglobin 6.5 g/dL (12.0-15.5) Hematocrit 22.0 % (36.0-47.0) Mean Corpuscular Volume 69 fL (79-100) Mean Corpuscular Hemoglobin 20 pg (25-35) Mean Corpuscular Hemoglobin Concent 29 g/dL (31-37) Red Cell Distribution Width 20.1 % (11.5-14.5) Platelet Count 311 x10^3/uL (140-400) Neutrophils (%) (Auto) 39 % (31-73) Lymphocytes (%) (Auto) 36 % (24-48) Monocytes (%) (Auto) 8 % (0-9) Eosinophils (%) (Auto) 17 % (0-3) Basophils (%) (Auto) 1 % (0-3) Neutrophils # (Auto) 2.5 x10^3/uL (1.8-7.7) Lymphocytes # (Auto) 2.3 x10^3/uL (1.0-4.8) Monocytes # (Auto) 0.5 x10^3/uL (0.0-1.1) Eosinophils # (Auto) 1.1 x10^3/uL (0.0-0.7) Basophils # (Auto) 0.1 x10^3/uL (0.0-0.2) Segmented Neutrophils % 42 % (35-66) Lymphocytes % 40 % (24-48) Monocytes % 5 % (0-10) Eosinophils % 12 % (0-5) Basophils % 1 % (0-3) Platelet Estimate Adequate (ADEQUATE) Polychromasia Slight Hypochromasia Marked Anisocytosis Mod Microcytosis Marked Ovalocytes Occ Schistocytes Occ Sodium Level 141 mmol/L (136-145) Potassium Level 3.4 mmol/L (3.5-5.1) Chloride Level 105 mmol/L (98-107) Carbon Dioxide Level 27 mmol/L (21-32) Anion Gap 9 (6-14) Blood Urea Nitrogen 8 mg/dL (7-20) Creatinine 0.9 mg/dL (0.6-1.0) Estimated GFR (Cockcroft-Gault) 81.2 BUN/Creatinine Ratio 9 (6-20) Glucose Level 167 mg/dL (70-99) Calcium Level 9.0 mg/dL (8.5-10.1) Total Bilirubin 0.2 mg/dL (0.2-1.0) Aspartate Amino Transf (AST/SGOT) 12 U/L (15-37) Alanine Aminotransferase (ALT/SGPT) 11 U/L (14-59) Alkaline Phosphatase 69 U/L (46-116) Total Protein 7.5 g/dL (6.4-8.2) Albumin 3.1 g/dL (3.4-5.0) Albumin/Globulin Ratio 0.7 (1.0-1.7) Lipase 214 U/L (73-393) Prothrombin Time 14.3 SEC (11.7-14.0) Prothromb Time International Ratio 1.1 (0.8-1.1) Activated Partial Thromboplast Time 30 SEC (24-38) Glucose (Fingerstick) 99 mg/dL (70-99) 98 mg/dL (70-99) Imaging: Imaging: PATIENT: MARILU MANCIA YACCOUNT: [id number] : 1975 LOCATION: ER AGE: 45 SEX: F EXAM STATUS: REG ER ORD. PHYSICIAN: EARLE GARDNER DO REASON: abd pain, OMNI 300 75 ML IV PROCEDURE: CT ABD PELV W/ IV CONTRST ONLY EXAMINATION: CT abdomen and pelvis with IV contrast. INDICATION:45 years, Female, abdominal pain. TECHNIQUE: Axial CT images of the abdomen and pelvis were obtained. Coronal and sagittal reformatted performed. COMPARISON: 10/13/2019. Exposure: One or more of the following individualized dose reduction techniques were utilized for this examination: 1. Automated exposure control 2. Adjustment of the mA and/or kV according to patient size 3. Use of iterative reconstruction technique. FINDINGS: LOWER CHEST: Unremarkable. ABDOMEN/PELVIS: Liver is unremarkable. Contracted gallbladder which limits evaluation. No biliary ductal dilation. Calcified spleen. Unremarkable pancreas and adrenal glands. No hydronephrosis. Similar punctate nonobstructing bilateral nephrolithiasis. Gastrostomy tube is in place. No bowel dilation. Appendix is not seen with certainty. Mild aortoiliac atherosclerotic calcifications without dilation. Mesenteric arteries and portal veins are patent. No pneumoperitoneum. No lymphadenopathy. Unremarkable urinary bladder. Anteverted uterus. Similar 2.7 cm soft tissue mass exophytic from the uterine fundus, likely fibroid. Small amount of free fluid, likely physiologic. MUSCULOSKELETAL STRUCTURES: No suspicious osseous lesion or acute process. Mild diffuse anasarca. IMPRESSION: 1. No acute abnormality in the abdomen or pelvis. 2. Gastrostomy tube is in place. No bowel obstruction. 3. Similar punctate nonobstructing bilateral nephrolithiasis. PE: GEN: NAD, asks for tissue HEENT: Atraumatic, PERRL LUNGS: some coughing HEART: RRR ABD: BS+, soft, non-tender, PEG in place w/ gauze under bumper w/ thick yellowish drainage EXTREMITY: No edema SKIN: No rashes, no jaundice NEURO/PSYCH: A & O 3 A/P: A/P: A/P: A/P: Anemia- transfuse Dysphagia- await Speech eval to see if PEG necessary given that she has been tolerating PO Abd discomfort- ct without evidence of issue with PEG H/o CVA, ?MS, abnormal swallowing Known RATNA CRC screen - none CAD GERONIMO CAMPBELL MD Apr 22, 2021 13:05
[2021-04-22] MEDS ORDERED: ACETAMINOPHEN 650 MG/20.3 ML SOLUTION. PEG SCH (14:00)
[2021-04-22] MEDS ORDERED: ACETAMINOPHEN 325 MG TABLET. PO SCH (14:00)
--- NOTE | 2021-04-22 16:48 | RAD ---
Study: XR CHEST 1V Indication: Reassess for aspiration. Comparison: 10/16/2019 Findings: Minimal reticulonodular densities at the right lung base. No confluent infiltrate, pleural effusion o r pneumothorax. Unchanged cardiomediastinal silhouette and soy. Impression: No radiographic findings diagnostic of aspiration pneumonitis. Minimal reticulonodular densities at t he right lung base can be seen with bronchovascular crowding related to incomplete inspiration. No co nfluent infiltrate or effusion. If there is concern for aspiration consider a dysphagiagram. Electronically signed by: ADDIE VERDE MD (04/22/2021 4:45 PM) [facility]
[2021-04-22] MEDS: PANTOPRAZOLE IV PUSH 40 MG VIAL. IVP SCH (20:43)
[2021-04-22] MEDS: DEXTROMETHORPHAN HBR PO SCH (20:45)
[2021-04-22] MEDS: QUINIDINE PO SCH (20:45)
[2021-04-22] MEDS: ACETAMINOPHEN 325 MG TABLET. PO SCH (20:45)
[2021-04-23 02:27] VITALS: BP 153/88
[2021-04-23] MEDS: IV NORMAL SALINE 1000ML BAG 1,000 ML IV SCH ×2 (06:03→16:08)
[2021-04-23 07:00] VITALS: BP 168/96
[2021-04-23] MEDS: INSULIN LISPRO 300 UNITS/3 ML VIAL. SQ SCH ×4 (07:30→21:00)
[2021-04-23] MEDS: ACETAMINOPHEN 325 MG TABLET. PO SCH ×3 (10:33→20:47)
[2021-04-23] MEDS: CITALOPRAM 20 MG TABLET. PO SCH (10:33)
[2021-04-23] MEDS: FLUTICASONE 50MCG/NASAL SPRAY 16GM BOTTLE. NS SCH (10:34)
[2021-04-23] MEDS: QUINIDINE PO SCH ×2 (10:34→21:00)
[2021-04-23] MEDS: PANTOPRAZOLE IV PUSH 40 MG VIAL. IVP SCH ×2 (10:34→20:47)
[2021-04-23] MEDS: DEXTROMETHORPHAN HBR PO SCH ×2 (10:34→21:00)
[2021-04-23 11:00] VITALS: BP 172/96
--- NOTE | 2021-04-23 11:21 | PDOC ---
Date of Service: DATE: 04/23/21 TIME: 11:13 Subjective: Subjective: Immediately started crying when I walked in. Objective: Objective: D/w nurse - cries a lot. Vital Signs: Vital Signs Date Time Temp Pulse Resp B/P (MAP) Pulse Ox O2 Delivery O2 Flow Rate FiO2 04/23/21 07:00 97.8 82 20 168/96 (120) 99 Room Air 97.8 Labs: Laboratory Tests Test 04/22/21 12:08 04/22/21 17:15 04/22/21 20:45 04/23/21 08:19 Glucose (Fingerstick) 98 mg/dL (70-99) 158 mg/dL (70-99) 129 mg/dL (70-99) 104 mg/dL (70-99) Imaging: GRIDDLE ATTENDANT Bedside Swallow Eval 04/22/21 Eval completed. Pt known from prior admits in 03/2019 and 04/2019. Prior videoswallow 04/14/2019 rec'd NPO r/t issues of efficiency w/signif.orophayrngeal delay of 20-30 secs across trials which was prohibitive to adequate nutrition. No aspiration noted at that time but some instances of penetration were present. Pt also appeared to aspirate her own secretions at times in 2019 per record review. Peg placed 04/2019 r/t po intake not anticipated to meet nutritional needs. Currently, swallow function appears improved; mild oropharyngeal delay noted, and no s/s aspiration on any tested consistency (multiple trials). Incomplete mastication of solids noted per diffuse lingual residue. IMPRESSIONS: Clinically, swallow function appears improved vs that noted per videoswallow in 03/2019. Prior issues of efficiency of swallow no longer present and no overt s/s aspiration noted at bedside. Pt did not previously aspirate, therefore, low suspicion for silent aspiration presently. Pt has been eating x last year per family. No intervening respiratory issues reported. Pt and family reportedly desire removal of PEG. Would consider initiating modified po diet (due to mastication issues), eval % po intake and perform PCXR. If intake falling below nutritional needs, refer to dietitian to determine if supplemental oral vs non-oral is needed. RECOMMENDATIONS: 1. Initiate dysphagia II diet w/thin liquids. PO meds in puree. Precautions as posted. 2. Dietitian referral re: po intake meeting nutritional needs? 3. Chest xray. 4. Pending dietitian eval and PCXR results, consider PEG removal. CXR 04/22 Impression: No radiographic findings diagnostic of aspiration pneumonitis. Minimal reticulonodular densities at the right lung base can be seen with bronchovascular crowding related to incomplete inspiration. No confluent i nfiltrate or effusion. If there is concern for aspiration consider a dysphagiagram. PE: GEN: sobbing LUNGS: CTAB HEART: RRR, ABD: soft, doesn't seem tender, PEG in place A/P: PEG in place Known RATNA - Hgb improved w/ transfusion, no obvious GI bleeding - normal EGD when PEG placed in 2019, no previous colonoscopy per past encounter, suspected uterine fibroid on past pelvic US CAD on ASA and Plavix (held) Rapid COVID negative -- GRIDDLE ATTENDANT note reviewed, will d/w Dr. Gray. Justicifation of Admission Dx: Justifications for Admission: Justification of Admission Dx: N/A JAZMINE HANCOCK Apr 23, 2021 11:21
--- NOTE | 2021-04-23 12:37 | NUR ---
SW following. Discussed with RN, pt from home, room air, dysphagia II, rapid COVID-19 negative. Plans to remove Peg tube per RN. RN advised no SW needs at this time. SW will continue to follow.
[2021-04-23 13:25] LABS: BASO # 0.1 x10^3/uL (0.0-0.2); BASO % 1 % (0-3); EOS # 1.4 x10^3/uL (0.0-0.7); EOS % 17 % (0-3); HEMATOCRIT 26.4 % (36.0-47.0); LYMPH % 24 % (24-48); MEAN CORPUSCULAR HEMOGLOBIN 22 pg (25-35); MEAN CORPUSCULAR HGB CONC 30 g/dL (31-37); MEAN CORPUSCULAR VOLUME 72 fL (79-100); MONO # 0.5 x10^3/uL (0.0-1.1); MONO % 6 % (0-9); NEUT # 4.3 x10^3/uL (1.8-7.7); NEUT % 52 % (31-73); PLATELET COUNT 304 x10^3/uL (140-400); RED BLOOD COUNT 3.68 x10^6/uL (3.50-5.40); RED CELL DISTRIBUTION WIDTH 22.3 % (11.5-14.5); WHITE BLOOD COUNT 8.2 x10^3/uL (4.0-11.0)
[2021-04-23 13:48] LABS: ALBUMIN 2.8 g/dL (3.4-5.0); ALBUMIN/GLOBULIN RATIO 0.7 (1.0-1.7); CALCIUM 8.5 mg/dL (8.5-10.1); CREATININE 0.7 mg/dL (0.6-1.0); GFR 108.5; POTASSIUM 3.6 mmol/L (3.5-5.1); TOTAL BILIRUBIN 0.1 mg/dL (0.2-1.0); TOTAL PROTEIN 6.8 g/dL (6.4-8.2)
[2021-04-23 15:00] VITALS: BP 162/87
--- NOTE | 2021-04-23 18:23 | PDOC ---
[facility] PROGRESS NOTE Date of Service DOS: DATE: 04/23/21 TIME: 18:22 Chief Complaint Chief Complaint Impression: A 45-year-old woman with significant debility, admitted from home with an altered mental status, found to have severe anemia with a hemoglobin of 6.5. This may be exclusively due to menstrual losses. The patient's daughter tells us that she has heavy and prolonged periods for the last couple of years. We will consult Gastroenterology to help us address her PEG tube. It may well be that we need to take it out if the patient and her daughter are understanding the risks of oral intake despite her swallow deficit. I will leave that discussion to Gastroenterology and the patient's daughter. It sounds like the patient has been picking and pulling at the tube. We will hold her aspirin and Plavix until her hemoglobin is in a safer range. We may be able to have her restart on only one of those medications as her cardiac stents are over 1-year-old. We have not consulted Cardiology as there are no active issues at this point, but they may be helpful and elucidating decisions regarding her antithrombotic regimen. We can use sequential compression devices for deep venous thrombosis prophylaxis. We will hold her diet for now pending a speech and swallow evaluation, but again we will need to have discussion with the patient's daughter regarding her mother's wishes on eating. Inpatient stay is most appropriate as we anticipate a length of stay of at least 2-3 midnights while we work this through. History of Present Illness History of Present Illness 04/23 Patient evaluated and examined at bedside. She was resting in bed. Hemoglobin for stable from yesterday. Closely monitor this. Continue current plan otherwise. Discussed with bedside RN. Vitals/I&O Vitals/I&O: Vital Signs Date Time Temp Pulse Resp B/P (MAP) Pulse Ox O2 Delivery O2 Flow Rate FiO2 04/23/21 15:00 98.6 85 20 162/87 (112) 98 Room Air 98.6 I & O 04/22/21 04/22/21 04/23/21 15:00 23:00 07:00 Intake Total 510 ml 950 ml Balance 510 ml 950 ml Physical Exam General: Alert, Oriented X3, Cooperative Heart: Regular rate Lungs: Clear Abdomen: Normal bowel sounds, Soft Extremities: No edema, Normal pulses Skin: No significant lesion Labs Labs: Laboratory Tests Test 04/22/21 20:45 3/7/22 08:19 04/23/21 11:57 04/23/21 13:15 Glucose (Fingerstick) 129 mg/dL (70-99) 104 mg/dL (70-99) 113 mg/dL (70-99) White Blood Count 8.2 x10^3/uL (4.0-11.0) Red Blood Count 3.68 x10^6/uL (3.50-5.40) Hemoglobin 8.0 g/dL (12.0-15.5) Hematocrit 26.4 % (36.0-47.0) Mean Corpuscular Volume 72 fL (79-100) Mean Corpuscular Hemoglobin 22 pg (25-35) Mean Corpuscular Hemoglobin Concent 30 g/dL (31-37) Red Cell Distribution Width 22.3 % (11.5-14.5) Platelet Count 304 x10^3/uL (140-400) Neutrophils (%) (Auto) 52 % (31-73) Lymphocytes (%) (Auto) 24 % (24-48) Monocytes (%) (Auto) 6 % (0-9) Eosinophils (%) (Auto) 17 % (0-3) Basophils (%) (Auto) 1 % (0-3) Neutrophils # (Auto) 4.3 x10^3/uL (1.8-7.7) Lymphocytes # (Auto) 2.0 x10^3/uL (1.0-4.8) Monocytes # (Auto) 0.5 x10^3/uL (0.0-1.1) Eosinophils # (Auto) 1.4 x10^3/uL (0.0-0.7) Basophils # (Auto) 0.1 x10^3/uL (0.0-0.2) Sodium Level 142 mmol/L (136-145) Potassium Level 3.6 mmol/L (3.5-5.1) Chloride Level 108 mmol/L (98-107) Carbon Dioxide Level 24 mmol/L (21-32) Anion Gap 10 (6-14) Blood Urea Nitrogen 4 mg/dL (7-20) Creatinine 0.7 mg/dL (0.6-1.0) Estimated GFR (Cockcroft-Gault) 108.5 BUN/Creatinine Ratio 6 (6-20) Glucose Level 133 mg/dL (70-99) Calcium Level 8.5 mg/dL (8.5-10.1) Total Bilirubin 0.1 mg/dL (0.2-1.0) Aspartate Amino Transf (AST/SGOT) 17 U/L (15-37) Alanine Aminotransferase (ALT/SGPT) 9 U/L (14-59) Alkaline Phosphatase 69 U/L (46-116) Total Protein 6.8 g/dL (6.4-8.2) Albumin 2.8 g/dL (3.4-5.0) Albumin/Globulin Ratio 0.7 (1.0-1.7) Thyroid Stimulating Hormone (TSH) 1.919 uIU/mL (0.358-3.74) Test 04/23/21 17:22 Glucose (Fingerstick) 162 mg/dL (70-99) Comment Review of Relevant I have reviewed the following items cecilia (where applicable) has been applied. Medications: Current Medications Medications (Trade) Dose Ordered Sig/Payton Route PRN Reason Start Time Stop Time Status Last Admin Dose Admin Fluticasone Propionate (Flonase) 2 spray DAILY NS 04/23/21 09:00 04/23/21 10:34 Non-Formulary Medication (Dextromethorphan Hbr/Quinidine (Nuedexta 20-10 Mg Capsule)) 1 cap BID PO 04/22/21 21:00 04/23/21 10:34 Citalopram Hydrobromide (CeleXA) 20 mg DAILY PO 04/23/21 09:00 04/23/21 10:33 Pantoprazole Sodium (PROTONIX VIAL for IV PUSH) 40 mg BID IVP 04/22/21 21:00 04/23/21 10:34 Acetaminophen (Tylenol) 650 mg TID PO 04/22/21 21:00 04/23/21 10:33 Justifications for Admission Other Justification FLORESITA CANSECO MD Apr 23, 2021 18:23
[2021-04-23 19:00] VITALS: BP 146/93
[2021-04-23 23:00] VITALS: BP 173/89
[2021-04-24 03:00] VITALS: BP 157/95
[2021-04-24] MEDS: IV NORMAL SALINE 1000ML BAG 1,000 ML IV SCH ×2 (05:12→11:45)
[2021-04-24 07:30] VITALS: BP 166/96
[2021-04-24] MEDS: INSULIN LISPRO 300 UNITS/3 ML VIAL. SQ SCH ×3 (07:30→16:30)
[2021-04-24] MEDS: ACETAMINOPHEN 325 MG TABLET. PO SCH ×2 (08:40→13:54)
[2021-04-24] MEDS: CITALOPRAM 20 MG TABLET. PO SCH (08:40)
[2021-04-24] MEDS: PANTOPRAZOLE IV PUSH 40 MG VIAL. IVP SCH (08:40)
[2021-04-24] MEDS: DEXTROMETHORPHAN HBR PO SCH (08:45)
[2021-04-24] MEDS: QUINIDINE PO SCH (08:45)
[2021-04-24] MEDS: FLUTICASONE 50MCG/NASAL SPRAY 16GM BOTTLE. NS SCH (08:45)
--- NOTE | 2021-04-24 10:19 | PDOC ---
Date of Service: DATE: 04/24/21 TIME: 10:16 Subjective: Subjective: Indicates she is enjoying breakfast. Denies pain. Wants PEG out. Objective: Vital Signs: Vital Signs Date Time Temp Pulse Resp B/P (MAP) Pulse Ox O2 Delivery O2 Flow Rate FiO2 04/24/21 07:30 98.1 85 18 166/96 (119) 99 Room Air 98.1 Labs: Laboratory Tests Test 04/23/21 11:57 04/23/21 17:22 04/23/21 19:56 04/24/21 07:45 Glucose (Fingerstick) 113 mg/dL (70-99) 162 mg/dL (70-99) 143 mg/dL (70-99) 107 mg/dL (70-99) PE: GEN: NAD LUNGS: CTAB HEART: RRR ABD: S/ND/NT, PEG in place LUQ - bumper bit loose NEURO/PSYCH: awake and alert, much more calm today, smiling A/P: Dysphagia w/ PEG in place - tolerating PO diet Known RATNA, h/o fibroids -- Tolerating diet. PEG removal inpt vs outpt - will follow-up. Justicifation of Admission Dx: Justifications for Admission: Justification of Admission Dx: N/A JAZMINE HANCOCK Apr 24, 2021 10:19
[2021-04-24 11:15] VITALS: BP 155/89
--- NOTE | 2021-04-24 13:16 | PDOC ---
[facility] [facility] PROGRESS NOTE Date of Service DOS: DATE: 04/24/21 TIME: 13:13 Chief Complaint Chief Complaint priro CVA confused and altered mental status, acut dana chronc anemia Hgb 6.5 kown RATNA dysphagia and PEG tube. History of Present Illness History of Present Illness 04/24, DC IV iron 04/23 Patient evaluated and examined at bedside. She was resting in bed. Hemoglobin for stable from yesterday. Closely monitor this. Continue current plan otherwise. Discussed with bedside RN. Vitals/I&O Vitals/I&O: Vital Signs Date Time Temp Pulse Resp B/P (MAP) Pulse Ox O2 Delivery O2 Flow Rate FiO2 04/24/21 11:15 98.1 81 18 155/89 (111) 97 Room Air 98.1 I & O 04/23/21 04/23/21 04/24/21 15:00 23:00 07:00 Intake Total 450 ml Balance 450 ml Physical Exam General: Alert, Oriented X3, Cooperative Heart: Regular rate Lungs: Clear Abdomen: Normal bowel sounds, Soft Extremities: No edema, Normal pulses Skin: No significant lesion Labs Labs: Laboratory Tests Test 04/23/21 13:15 04/23/21 17:22 04/23/21 19:56 04/24/21 07:45 White Blood Count 8.2 x10^3/uL (4.0-11.0) Red Blood Count 3.68 x10^6/uL (3.50-5.40) Hemoglobin 8.0 g/dL (12.0-15.5) Hematocrit 26.4 % (36.0-47.0) Mean Corpuscular Volume 72 fL (79-100) Mean Corpuscular Hemoglobin 22 pg (25-35) Mean Corpuscular Hemoglobin Concent 30 g/dL (31-37) Red Cell Distribution Width 22.3 % (11.5-14.5) Platelet Count 304 x10^3/uL (140-400) Neutrophils (%) (Auto) 52 % (31-73) Lymphocytes (%) (Auto) 24 % (24-48) Monocytes (%) (Auto) 6 % (0-9) Eosinophils (%) (Auto) 17 % (0-3) Basophils (%) (Auto) 1 % (0-3) Neutrophils # (Auto) 4.3 x10^3/uL (1.8-7.7) Lymphocytes # (Auto) 2.0 x10^3/uL (1.0-4.8) Monocytes # (Auto) 0.5 x10^3/uL (0.0-1.1) Eosinophils # (Auto) 1.4 x10^3/uL (0.0-0.7) Basophils # (Auto) 0.1 x10^3/uL (0.0-0.2) Sodium Level 142 mmol/L (136-145) Potassium Level 3.6 mmol/L (3.5-5.1) Chloride Level 108 mmol/L (98-107) Carbon Dioxide Level 24 mmol/L (21-32) Anion Gap 10 (6-14) Blood Urea Nitrogen 4 mg/dL (7-20) Creatinine 0.7 mg/dL (0.6-1.0) Estimated GFR (Cockcroft-Gault) 108.5 BUN/Creatinine Ratio 6 (6-20) Glucose Level 133 mg/dL (70-99) Calcium Level 8.5 mg/dL (8.5-10.1) Total Bilirubin 0.1 mg/dL (0.2-1.0) Aspartate Amino Transf (AST/SGOT) 17 U/L (15-37) Alanine Aminotransferase (ALT/SGPT) 9 U/L (14-59) Alkaline Phosphatase 69 U/L (46-116) Total Protein 6.8 g/dL (6.4-8.2) Albumin 2.8 g/dL (3.4-5.0) Albumin/Globulin Ratio 0.7 (1.0-1.7) Thyroid Stimulating Hormone (TSH) 1.919 uIU/mL (0.358-3.74) Glucose (Fingerstick) 162 mg/dL (70-99) 143 mg/dL (70-99) 107 mg/dL (70-99) Test 04/24/21 11:54 Glucose (Fingerstick) 112 mg/dL (70-99) Comment Review of Relevant I have reviewed the following items cecilia (where applicable) has been applied. Justifications for Admission Other Justification MYRNA ESPINOZA MD Apr 24, 2021 13:16
--- NOTE | 2021-04-24 13:18 | PDOC3 ---
Discharge Summary Visit Information Date of Admission: Apr 22, 2021 Date of Discharge: Apr 24, 2021 Final Diagnosis prior CVA confused and altered mental status, acute on chronc anemia, menorhagia from fibroids Hgb 6.5 on admit 1 u prbc given known RATNA dysphagia and PEG tube. Brief Hospital Course Allergies Allergies Coded Allergies Type Severity Reaction Last Updated Verified Sulfa (Sulfonamide Antibiotics) Allergy Intermediate hives 04/21/19 Yes lisinopril Allergy Intermediate hives 04/21/19 Yes Vital Signs Vital Signs Date Time Temp Pulse Resp B/P (MAP) Pulse Ox O2 Delivery O2 Flow Rate FiO2 04/24/21 11:15 98.1 81 18 155/89 (111) 97 Room Air 98.1 Lab Results Laboratory Tests Test 04/22/21 15:00 04/22/21 15:05 04/22/21 17:15 04/22/21 20:45 SARS-CoV-2 Antigen (Rapid) Negative (NEGATIVE) Hemoglobin 8.4 g/dL (12.0-15.5) Glucose (Fingerstick) 158 mg/dL (70-99) 129 mg/dL (70-99) Test 04/23/21 08:19 04/23/21 11:57 04/23/21 13:15 04/23/21 17:22 Glucose (Fingerstick) 104 mg/dL (70-99) 113 mg/dL (70-99) 162 mg/dL (70-99) White Blood Count 8.2 x10^3/uL (4.0-11.0) Red Blood Count 3.68 x10^6/uL (3.50-5.40) Hemoglobin 8.0 g/dL (12.0-15.5) Hematocrit 26.4 % (36.0-47.0) Mean Corpuscular Volume 72 fL (79-100) Mean Corpuscular Hemoglobin 22 pg (25-35) Mean Corpuscular Hemoglobin Concent 30 g/dL (31-37) Red Cell Distribution Width 22.3 % (11.5-14.5) Platelet Count 304 x10^3/uL (140-400) Neutrophils (%) (Auto) 52 % (31-73) Lymphocytes (%) (Auto) 24 % (24-48) Monocytes (%) (Auto) 6 % (0-9) Eosinophils (%) (Auto) 17 % (0-3) Basophils (%) (Auto) 1 % (0-3) Neutrophils # (Auto) 4.3 x10^3/uL (1.8-7.7) Lymphocytes # (Auto) 2.0 x10^3/uL (1.0-4.8) Monocytes # (Auto) 0.5 x10^3/uL (0.0-1.1) Eosinophils # (Auto) 1.4 x10^3/uL (0.0-0.7) Basophils # (Auto) 0.1 x10^3/uL (0.0-0.2) Sodium Level 142 mmol/L (136-145) Potassium Level 3.6 mmol/L (3.5-5.1) Chloride Level 108 mmol/L (98-107) Carbon Dioxide Level 24 mmol/L (21-32) Anion Gap 10 (6-14) Blood Urea Nitrogen 4 mg/dL (7-20) Creatinine 0.7 mg/dL (0.6-1.0) Estimated GFR (Cockcroft-Gault) 108.5 BUN/Creatinine Ratio 6 (6-20) Glucose Level 133 mg/dL (70-99) Calcium Level 8.5 mg/dL (8.5-10.1) Total Bilirubin 0.1 mg/dL (0.2-1.0) Aspartate Amino Transf (AST/SGOT) 17 U/L (15-37) Alanine Aminotransferase (ALT/SGPT) 9 U/L (14-59) Alkaline Phosphatase 69 U/L (46-116) Total Protein 6.8 g/dL (6.4-8.2) Albumin 2.8 g/dL (3.4-5.0) Albumin/Globulin Ratio 0.7 (1.0-1.7) Thyroid Stimulating Hormone (TSH) 1.919 uIU/mL (0.358-3.74) Test 04/23/21 19:56 04/24/21 07:45 04/24/21 11:54 Glucose (Fingerstick) 143 mg/dL (70-99) 107 mg/dL (70-99) 112 mg/dL (70-99) Laboratory Tests Test 04/23/21 17:22 04/23/21 19:56 04/24/21 07:45 04/24/21 11:54 Glucose (Fingerstick) 162 mg/dL (70-99) 143 mg/dL (70-99) 107 mg/dL (70-99) 112 mg/dL (70-99) Brief Hospital Course Ms. Al is a 45 old admit fo rconfusion weakness symptomatic anemia 1 u given Hgb then 8 at baseline, DC home 500mg iv iron given Discharge Information Condition at Discharge: Improved Follow Up: Weeks Disposition/Orders: D/C to Home Scheduled Acetaminophen (Tylenol) 325 Mg Tablet, 650 MG PO TID for 7 Days, #21 Prescribed by: KEI MEJIAS on 09/14/19 0023 Last Action: Continued on 04/22/21937 by MATY CUNNINGHAM Aspirin (Aspirin) 81 Mg Tab.chew, 1 TAB PO DAILY, #30 Ref 3 (Reported) Entered as Reported by: PHUONG MOTT on 10/04/13 1550 Last Action: HELD on 04/22/21937 by MATY CUNNINGHAM Clopidogrel Bisulfate (Clopidogrel) 75 Mg Tablet, 1 TAB PO DAILY for blood thinner/hx stroke, #90 Ref 1 (Reported) Entered as Reported by: MANAV WHATLEY on 04/22/21641 Last Action: HELD on 04/22/21937 by MATY CUNNINGHAM Dextromethorphan Hbr/Quinidine (Nuedexta 20-10 Mg Capsule) 1 Each Capsule, 1 CAP PO BID for excessive crying for 30 Days, #60 Ref 0 (Reported) Entered as Reported by: MANAV WHATLEY on 04/22/21644 Last Action: Converted on 04/22/21937 by MATY CUNNINGHAM Escitalopram Oxalate (Escitalopram Oxalate) 10 Mg Tablet, 1 TAB PO DAILY for depression, #30 Ref 3 (Reported) Entered as Reported by: MANAV WHATLEY on 04/22/21640 Last Action: Converted on 04/22/21937 by MATY CUNNINGHAM Fluticasone Propionate (Fluticasone Propionate Nasal [place]) 16 Gm [place].susp, 2 SPRAY NS DAILY, #1 Prescribed by: EULA KENNEDY MD on 02/20/16 1227 Last Action: Continued on 04/22/21937 by MATY CUNNINGHAM Glipizide (Glipizide) 5 Mg Tablet, 1 TAB PO BID, #30 Ref 3 Prescribed by: Radha Pedroza APRN on 09/18/18104 Last Action: HELD on 04/22/21937 by MATY CUNNINGHAM Insulin Glargine,Hum.rec.anlog (Lantus) 100 Unit/1 Ml Vial, 8 UNIT SQ QHS for DM for 30 Days, #1 Prescribed by: PRATEEK GIVENS MD on 04/30/191202 Last Action: HELD on 04/22/21937 by MATY CUNNINGHAM Metformin Hcl (Riomet Oral Solution) 500 Mg/5 Ml Solution, 500 MG PO BIDWMEALS for ANTI-DIABETIC for 30 Days, Ref 0 Prescribed by: PRATEEK GIVENS MD on 04/30/191202 Last Action: HELD on 04/22/21937 by MATY CUNNINGHAM Pantoprazole Sodium (Pantoprazole Sodium ) 40 Mg Tablet.dr, 40 MG PO DAILYAC for GERD, (Reported) Entered as Reported by: MANAV WHATLEY on 04/22/21644 Last Action: HELD on 04/22/21938 by MATY CUNNINGHAM Sitagliptin Phosphate (Januvia) 50 Mg Tablet, 1 TAB PO DAILY, #30 Ref 0 Prescribed by: Radha Pedroza APRN on 09/18/18104 Last Action: HELD on 04/22/21937 by MATY CUNNINGHAM Patient Instructions Patient Instructions pt seen face to face 38 min Justicifation of Admission Dx: Justifications for Admission: Justification of Admission Dx: N/A MYRNA ESPINOZA MD Apr 24, 2021 13:18
--- NOTE | 2021-04-24 14:15 | NUR ---
SW following. Discussed with RN, discharge order for home with self care. RN advised no SW needs.
[2021-04-24] MEDS ORDERED: IRON SUCROSE COMPLEX 500 MG in IV NORMAL SALINE 250ML 250 ML IV ONE (14:30)
[2021-04-24 15:10] VITALS: BP 153/85
--- NOTE | 2021-04-24 15:29 | NUR ---
Patient received approximately 1/4 of ordered iron IV, IV infiltrated, multiple failed attempts by staff members, Per Dr. Madden discontinued iron and ok to leave no IV Access, proceed with discharge.
[2021-04-25] MEDS ORDERED: LANSOPRAZOLE 30 MG TAB.RAP.DR PO SCH (09:00)
== END 2021-04-24 17:15 | disposition home or self-care (01) ==
LOC: ER 01:02 → 2 NORTH 04:34 → 4 NORTH 04-23 18:07
PROVIDERS: ADMIT Internal Medicine; ATTEND Internal Medicine
DX: R53.81 Other malaise (principal); Z20.822 Contact with and (suspected) exposure to COVID-19; D64.9 Anemia, unspecified; R41.82 Altered mental status, unspecified; I11.0 Hypertensive heart disease with heart failure; I50.9 Heart failure, unspecified; I25.10 Atherosclerotic heart disease of native coronary artery without angina pectoris; I63.9 Cerebral infarction, unspecified; D25.9 Leiomyoma of uterus, unspecified; E11.9 Type 2 diabetes mellitus without complications; G70.00 Myasthenia gravis without (acute) exacerbation; G81.91 Hemiplegia, unspecified affecting right dominant side; N20.0 Calculus of kidney; N92.0 Excessive and frequent menstruation with regular cycle; R13.10 Dysphagia, unspecified; R47.01 Aphasia; R10.9 Unspecified abdominal pain; Z43.1 Encounter for attention to gastrostomy; Z86.73 Personal history of transient ischemic attack (TIA), and cerebral infarction without residual deficits; Z95.5 Presence of coronary angioplasty implant and graft; Z79.899 Other long term (current) drug therapy; Z98.890 Other specified postprocedural states; Z95.1 Presence of aortocoronary bypass graft
CPT/HCPCS: 36415; 36430; 71045; 74177; 80053; 82962; 83690; 84443; 85007; 85018; 85025; 85610; 85730; 86850; 86900; 86901; 86920; 87426; 92526; 92610; 96361; 96365; 96366; 96375; 96376; 99285; C9113; G0378; J1756; J1815; J7030; J7042; J7050; P9016; Q9967; G0379

== ENCOUNTER 2021-05-22 12:57 | Inpatient (IN) | payer MEDICAID ==
[2021-05-22] VITALS (13 sets, daily range): BP systolic 149–192; BP diastolic 77–96
[~2021-05-22] VITALS: Ht 162.6 cm; Wt 63.2 kg
[~2021-05-22 12:57] MED LIST changes: +DEXT1CAP PO; +ESCITALOPRAM OX10 MG PO
[2021-05-22] MEDS ORDERED: DEXTROSE 50% 25 GM / 50ML DISP.SYRIN. IV ONE (13:00)
[2021-05-22] MEDS ORDERED: IV DEXTROSE 5% 250 ML BAG. IV ONE (13:15)
--- NOTE | 2021-05-22 13:16 | PHYS DOC ---
Past Medical History Past Medical History: CAD, CHF, CVA, Diabetes-Type II, Hypertension, [place], Stroke, Other Additional Past Medical Histor: 3 CARDIAC STENTS, LEFT BREAST CYST, PEG TUBE Past Surgical History: Other Additional Past Surgical Histo: J tube Smoking Status: Former Smoker Alcohol Use: None Drug Use: Marijuana Adult General HPI HPI Patient is a 45 year old female presenting to the emergency department for evaluation of reported confusion. Patient lives at home with family and reportedly has had a stroke that causes right-sided weakness and difficulty communicating. I asked EMS how she is different from her baseline and they said that she may have not been following commands however she would follow commands for me. She reportedly has baseline GCS 14 at this time she has a GCS of 14 for me. She does not have any family present but reportedly family is going to come here. Patient is unable to communicate effectively but does appear to try and answer questions. She is in no acute distress with normal vital signs. Review of Systems Review of Systems Unable to obtain due to medical condition All other systems were reviewed and found to be within normal limits, except as documented in this note. Current Medications Current Medications Current Medications Medications (Trade) Dose Ordered Sig/Payton Start Time Stop Time Status Last Admin Dose Admin Aspirin (Aspirin Chewable) 81 mg DAILY 05/22/21 16:00 Clopidogrel Bisulfate (Plavix) 75 mg DAILY 05/22/21 16:00 Dextrose (Dextrose 50%-Water Syringe) 12.5 gm PRN Q15MIN PRN 05/22/21 15:00 UNV Dextrose (Iv Dextrose 5%) 250 ml PRN Q15MIN PRN 05/22/21 15:00 UNV Dextrose/Sodium Chloride 1,000 ml @ 150 mls/hr 1X ONCE 05/22/21 15:00 05/22/21 21:39 Fluticasone Propionate (Flonase) 2 spray DAILY 05/23/21 09:00 UNV Insulin Human Lispro (HumaLOG) 0-7 UNITS TIDWMEALS 05/22/21 17:00 UNV Non-Formulary Medication (Escitalopram Oxalate ) 1 tab DAILY 05/23/21 09:00 UNV Pantoprazole Sodium (Protonix) 40 mg DAILYAC 05/23/21 07:30 UNV Potassium Chloride (Klor-Con) 40 meq 1X ONCE 05/22/21 15:00 05/22/21 15:01 Allergies Allergies Allergies Coded Allergies Type Severity Reaction Last Updated Verified Sulfa (Sulfonamide Antibiotics) Allergy Intermediate hives 05/22/21 Yes lisinopril Allergy Intermediate hives 05/22/21 Yes Physical Exam Physical Exam Constitutional: Chronically ill appearing female in no acute distress HENT: Normocephalic, atraumatic, bilateral external ears normal, oropharynx moist, no oral exudates, nose normal. [] Eyes: PERRLA, EOMI, conjunctiva normal, no discharge. [] Neck: Normal range of motion, no tenderness, supple, no stridor. [] Cardiovascular:Heart rate regular rhythm, no murmur [] Lungs & Thorax: Bilateral breath sounds clear to auscultation [] Abdomen: Bowel sounds normal, soft, no tenderness, no masses, no pulsatile masses. [] Skin: Warm, dry, no erythema, no rash. [] Back: No tenderness, no CVA tenderness. [] Extremities: No tenderness, no cyanosis, no clubbing, ROM intact, no edema. [] Neurologic: Alert and oriented X 0. Patient would wiggle fingers and toes however when trying to hold any of her extremities up they fell to the bed within 1 second. Current Patient Data Vital Signs Vital Signs Date Time Temp Pulse Resp B/P (MAP) Pulse Ox O2 Delivery O2 Flow Rate FiO2 05/22/21 12:58 98.5 87 16 181/94 (123) 100 Room Air 98.5 Lab Values Laboratory Tests Test 05/22/21 13:15 05/22/21 13:30 05/22/21 13:58 Urine Collection Type Unknown Urine Color (Auto) Yellow Urine Turbidity Clear Urine pH (Auto) 6.5 (<5.0-8.0) Urine Specific [place] 1.028 (1.000-1.030) Urine Protein (Auto) 300 mg/dL (Negative) Urine Glucose (Auto)(UA) Negative mg/dL (Negative) Urine Ketones (Auto) 10 mg/dL (Negative) Urine Blood (Auto) Negative (Negative) Urine Nitrite Negative (Negative) Urine Bilirubin (Auto) Negative (Negative) Urine Urobilinogen (Auto) Normal mg/dL (Normal) Urine Leukocyte Esterase (Auto) Negative (Negative) Urine RBC 0 /HPF (0-2) Urine WBC Occ /HPF (0-4) Urine Squamous Epithelial Cells Few /LPF Urine Bacteria Moderate /HPF (0-FEW) Urine Hyaline Casts Few /HPF Urine Mucus Mod /LPF Urine Opiates Screen Neg (NEG) Urine Methadone Screen Neg (NEG) Urine Barbiturates Neg (NEG) Urine Phencyclidine Screen Neg (NEG) Urine Amphetamine/Methamphetamine Neg (NEG) Urine Benzodiazepines Screen Neg (NEG) Urine Cocaine Screen Neg (NEG) Urine Cannabinoids Screen Pos (NEG) Urine Ethyl Alcohol Neg (NEG) White Blood Count 8.9 x10^3/uL (4.0-11.0) Red Blood Count 3.92 x10^6/uL (3.50-5.40) Hemoglobin 9.5 g/dL (12.0-15.5) L Hematocrit 30.5 % (36.0-47.0) L Mean Corpuscular Volume 78 fL (79-100) L Mean Corpuscular Hemoglobin 24 pg (25-35) L Mean Corpuscular Hemoglobin Concent 31 g/dL (31-37) Red Cell Distribution Width 29.2 % (11.5-14.5) H Platelet Count 256 x10^3/uL (140-400) Neutrophils (%) (Auto) 74 % (31-73) H Lymphocytes (%) (Auto) 19 % (24-48) L Monocytes (%) (Auto) 5 % (0-9) Eosinophils (%) (Auto) 1 % (0-3) Basophils (%) (Auto) 1 % (0-3) Neutrophils # (Auto) 6.6 x10^3/uL (1.8-7.7) Lymphocytes # (Auto) 1.7 x10^3/uL (1.0-4.8) Monocytes # (Auto) 0.4 x10^3/uL (0.0-1.1) Eosinophils # (Auto) 0.1 x10^3/uL (0.0-0.7) Basophils # (Auto) 0.1 x10^3/uL (0.0-0.2) Platelet Estimate Adequate (ADEQUATE) Hypochromasia Slight Anisocytosis Mod Veronika Cells Present Prothrombin Time 13.2 SEC (11.7-14.0) Prothrombin Time INR 1.0 (0.8-1.1) Activated Partial Thromboplast Time 30 SEC (24-38) Sodium Level 142 mmol/L (136-145) Potassium Level 3.1 mmol/L (3.5-5.1) L Chloride Level 107 mmol/L (98-107) Carbon Dioxide Level 25 mmol/L (21-32) Anion Gap 10 (6-14) Blood Urea Nitrogen 10 mg/dL (7-20) Creatinine 0.8 mg/dL (0.6-1.0) Estimated GFR (Cockcroft-Gault) 93.0 BUN/Creatinine Ratio 13 (6-20) Glucose Level 25 mg/dL (70-99) *L Calcium Level 9.7 mg/dL (8.5-10.1) Total Bilirubin 0.3 mg/dL (0.2-1.0) Aspartate Amino Transferase (AST) 13 U/L (15-37) L Alanine Aminotransferase (ALT) 10 U/L (14-59) L Alkaline Phosphatase 67 U/L (46-116) Troponin I High Sensitivity 108 ng/L (4-50) H PA-Lpk-O-Type Natriuretic Peptide 1628 pg/mL (0-124) H Total Protein 7.5 g/dL (6.4-8.2) Albumin 3.1 g/dL (3.4-5.0) L Albumin/Globulin Ratio 0.7 (1.0-1.7) L Lipase 152 U/L (73-393) Thyroid Stimulating Hormone (TSH) 0.655 uIU/mL (0.358-3.74) Ethyl Alcohol Level < 10 mg/dL (0-10) Glucose (Fingerstick) 76 mg/dL (70-99) Laboratory Tests 05/22/21 13:30 Laboratory Tests 05/22/21 13:30 EKG EKG Sinus rhythm at 81 bpm with normal axis no ST elevation or depression normal T waves with normal intervals. Radiology/Procedures Radiology/Procedures [] Course & Med Decision Making Course & Med Decision Making I will check labs and imaging and reassess. Patient does have an elevated troponin and reportedly has had stents in the past and when I asked her about chest pain she pointed her chest and made some sounds but communication is very limited. She is hyperglycemic but appears to be improving from this. Patient may be altered from her baseline given her abnormal work-up and communication difficulty will admit for further observation and treatment. Dragon Disclaimer Dragon Disclaimer This electronic medical record was generated, in whole or in part, using a voice recognition dictation system. Departure Departure Impression: Primary Impression: Hypoglycemia Additional Impressions: Acute encephalopathy Elevated troponin Anemia Hypokalemia Cannabis use, uncomplicated Disposition: 09 ADMITTED INPATIENT Admitting Physician: EDGARD Parra) Condition: IMPROVED Referrals: REJI CORREA MD (PCP) Problem Qualifiers ROSARIO LÓPEZ DO May 22, 2021 13:16
[2021-05-22 13:40] LABS: BARBITURATES NEG (NEG); BENZODIAZEPINES NEG (NEG); CANNABINOIDS POS (NEG); COCAINE NEG (NEG); METHADONE NEG (NEG); OPIATES NEG (NEG); PHENCYCLIDINE NEG (NEG)
--- NOTE | 2021-05-22 13:46 | EKG ---
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
[2021-05-22 13:47] LABS: AMPHETAMINE/METHAMPHETAMINE NEG (NEG)
[2021-05-22 13:52] LABS: BACTERIA,URINE MODERATE /HPF (0-FEW); HYALINE CASTS, URINE FEW /HPF; RBC,URINE 0 /HPF (0-2); WBC,URINE OCC /HPF (0-4)
[2021-05-22 13:57] LABS: BASO # 0.1 x10^3/uL (0.0-0.2); BASO % 1 % (0-3); EOS # 0.1 x10^3/uL (0.0-0.7); EOS % 1 % (0-3); HEMATOCRIT 30.5 % (36.0-47.0); HEMOGLOBIN 9.5 g/dL (12.0-15.5); LYMPH # 1.7 x10^3/uL (1.0-4.8); LYMPH % 19 % (24-48); MEAN CORPUSCULAR HEMOGLOBIN 24 pg (25-35); MEAN CORPUSCULAR HGB CONC 31 g/dL (31-37); MEAN CORPUSCULAR VOLUME 78 fL (79-100); MONO # 0.4 x10^3/uL (0.0-1.1); MONO % 5 % (0-9); NEUT # 6.6 x10^3/uL (1.8-7.7); NEUT % 74 % (31-73); PLATELET COUNT 256 x10^3/uL (140-400); RED BLOOD COUNT 3.92 x10^6/uL (3.50-5.40); RED CELL DISTRIBUTION WIDTH 29.2 % (11.5-14.5); WHITE BLOOD COUNT 8.9 x10^3/uL (4.0-11.0)
[2021-05-22 14:07] LABS: PROTHROMBIN TIME PATIENT 13.2 SEC (11.7-14.0)
--- NOTE | 2021-05-22 14:08 | RAD ---
EXAMINATION: CT HEAD/BRAIN WO CLINICAL HISTORY: Altered mental status. TECHNIQUE: Serial axial images without IV contrast were obtained from the vertex to the foramen magnu m. CT Dose Reduction Employed: One or more of the following individualized dose reduction techniques alonso e utilized for this examination: 1. Automated exposure control 2. Adjustment of the mA and/or kV ac cording to patient size 3. Use of iterative reconstruction technique. COMPARISON: 04/10/2020 FINDINGS: Acute Change: No evidence of an acute infarct or other acute parenchymal process. Hemorrhage: No evidence of acute intracranial hemorrhage. Mass Lesion/Mass Effect: No evidence of intracranial mass or extraaxial fluid collection. No signific ant mass effect. Parenchyma: New small focus of asymmetrically prominent hypoattenuation in the periventricular white matter along the frontal horn of the left lateral ventricle, possibly related to an interval lacunar infarct. Probable small area of encephalomalacia related to remote infarct in the left occipital lobe , similar to prior study. Scattered patchy foci of hypoattenuation in the supratentorial white matter , nonspecific but likely represents mild microvascular ischemia. Ventricles: Enlarged lateral and third ventricles, suggestive of changes secondary to central white m atter volume loss. Paranasal Sinuses and Skull Base: Visualized paranasal sinuses clear. Atherosclerotic calcification o f the intracranial portion of the bilateral internal carotid arteries. Visualized skull base and soft tissues unremarkable. IMPRESSION: No definitive evidence of acute intracranial abnormality. Findings suspicious for interval lacunar infarct in the left periventricular white matter. MRI could be obtained for further evaluation if there is concern for acute infarct. Probable remote left occipital infarct. Supratentorial white matter changes as described, likely related to chronic microvascular ischemia. Electronically signed by: Jimy Stone DO (05/22/2021 2:06 PM) [id number]
--- NOTE | 2021-05-22 14:09 | RAD ---
EXAMINATION: XR CHEST 1V CLINICAL HISTORY: Altered mental status. EXAM DATE/TIME: 05/22/2021 1:53 PM COMPARISON: 04/22/2021 FINDINGS: Lines, Tubes, and Devices: None. Cardiomediastinal Silhouette: Normal heart size. Lungs and Pleura: No evidence of focal airspace consolidation or pleural effusion. Pulmonary vasculat ure unremarkable. Bones and Soft Tissues: No acute osseous abnormality. IMPRESSION: No evidence of acute cardiopulmonary abnormality. Electronically signed by: Jimy Stone DO (05/22/2021 2:07 PM) [id number]
[2021-05-22 14:13] LABS: ALBUMIN 3.1 g/dL (3.4-5.0); ALBUMIN/GLOBULIN RATIO 0.7 (1.0-1.7); CALCIUM 9.7 mg/dL (8.5-10.1); CREATININE 0.8 mg/dL (0.6-1.0); POTASSIUM 3.1 mmol/L (3.5-5.1); TOTAL BILIRUBIN 0.3 mg/dL (0.2-1.0); TOTAL PROTEIN 7.5 g/dL (6.4-8.2)
[2021-05-22 14:41] LABS: ANISOCYTOSIS MOD; HYPOCHROMIA SLIGHT; PLT ESTIMATE ADEQUATE (ADEQUATE)
[2021-05-22 14:42] LABS: BURR CELLS PRESENT
[2021-05-22] MEDS ORDERED: POTASSIUM CHLORIDE 20 MEQ TABLET.ER. PO ONE (15:00)
[2021-05-22] MEDS ORDERED: IV DEXTROSE 5% 250 ML BAG. IV PRN (15:00)
[2021-05-22] MEDS ORDERED: DEXTROSE 50% 25 GM / 50ML DISP.SYRIN. IV PRN (15:00)
[2021-05-22] MEDS ORDERED: IV DEXTROSE 5% - 0.9 % NACL 1,000 ML IV ONE (15:00)
[2021-05-22] MEDS ORDERED: ONDANSETRON PF 4 MG/2 ML VIAL. IVP PRN (15:15)
[2021-05-22] MEDS: ASPIRIN CHEWABLE 81 MG TABLET. PO SCH (15:48)
[2021-05-22] MEDS: CLOPIDOGREL BISULFATE 75 MG TABLET PO SCH ×2 (15:49→16:00)
[2021-05-22] MEDS: CITALOPRAM 20 MG TABLET. PO SCH (16:00)
[2021-05-22] MEDS: PANTOPRAZOLE 40 MG TABLET.DR. PO SCH (17:00)
[2021-05-22] MEDS: INSULIN LISPRO 300 UNITS/3 ML VIAL. SQ SCH (17:00)
[2021-05-22] MEDS: FLUTICASONE 50MCG/NASAL SPRAY 16GM BOTTLE. NS SCH (17:00)
--- NOTE | 2021-05-22 18:43 | NUR ---
Notified Dr. Jerry of new consult, new orders received for nitro drip.
[2021-05-22] MEDS ORDERED: NITROGLYCERIN PREMIX 250 ML IV PRN (18:45)
--- NOTE | 2021-05-22 18:54 | PDOC1 ---
History and Physical Date of Service: DOS: DATE: 05/22/21 TIME: 18:54 Chief Complaint: Chief Complain: AMS History of Present Illness: HPI: I was unable to get any information from the patient and no answer when try to contact family. HPI from emergency room Patient is a 45 year old female presenting to the emergency department for evaluation of reported confusion. Patient lives at home with family and reportedly has had a stroke that causes right-sided weakness and difficulty communicating. I asked EMS how she is different from her baseline and they said that she may have not been following commands however she would follow commands for me. She reportedly has baseline GCS 14 at this time she has a GCS of 14 for me. She does not have any family present but reportedly family is going to come here. Patient is unable to communicate effectively but does appear to try and answer questions. She is in no acute distress with normal vital signs. Past Medical/Surgical History: PMH/PSH: Past Medical History: CAD, CHF, CVA, Diabetes-Type II, Hypertension, IA, Stroke, Additional Past Medical Histor: 3 CARDIAC STENTS, LEFT BREAST CYST, PEG TUBE Additional Past Surgical Histo: J tube Smoking Status: Former Smoker Alcohol Use: None Drug Use: Marijuana Allergies: Allergies: Coded Allergies: Sulfa (Sulfonamide Antibiotics) (Verified Allergy, Intermediate, hives, 05/22/21) lisinopril (Verified Allergy, Intermediate, hives, 05/22/21) Current Medications: Current Medications Current Medications Dextrose (Dextrose 50%-Water Syringe) 25 gm 1X ONCE IV ; Start 05/22/21 at 13:00; Stop 05/22/21 at 13:01; Status UNV Dextrose (Iv Dextrose 5%) 500 ml 1X ONCE IV Last administered on 05/22/21at 13:35; Start 05/22/21 at 13:15; Stop 05/22/21 at 13:16; Status DC Dextrose/Sodium Chloride 1,000 ml @ 150 mls/hr 1X ONCE IV Last administered on 05/22/21at 16:02; Start 05/22/21 at 15:00; Stop 05/22/21 at 21:39 Potassium Chloride (Klor-Con) 40 meq 1X ONCE PO Last administered on 05/22/21at 15:49; Start 05/22/21 at 15:00; Stop 05/22/21 at 15:06; Status DC Aspirin (Aspirin Chewable) 81 mg DAILY PO Last administered on 05/22/21at 15:48; Start 05/22/21 at 16:00 Clopidogrel Bisulfate (Plavix) 75 mg DAILY PO ; Start 05/22/21 at 16:00 Fluticasone Propionate (Flonase) 2 spray DAILY NS ; Start 05/22/21 at 17:00 Pantoprazole Sodium (Protonix) 40 mg DAILYAC PO ; Start 05/22/21 at 17:00 Citalopram Hydrobromide (CeleXA) 20 mg DAILY PO ; Start 05/22/21 at 16:00 Insulin Human Lispro (HumaLOG) 0-7 UNITS TIDWMEALS SQ ; Start 05/22/21 at 17:00 Dextrose (Dextrose 50%-Water Syringe) 12.5 gm PRN Q15MIN PRN IV SEE COMMENTS; Start 05/22/21 at 15:00 Dextrose (Iv Dextrose 5%) 250 ml PRN Q15MIN PRN IV SEE COMMENTS; Start 05/22/21 at 15:00 Ondansetron HCl (Zofran) 4 mg PRN Q8HRS PRN IVP NAUSEA/VOMITING; Start 05/22/21 at 15:15; Stop 05/23/21 at 15:14 Nitroglycerin/ Dextrose 250 ml @ 1.5 mls/hr CONT PRN IV SEE I/O RECORD; Start 05/22/21 at 18:45 Active Scripts Active Tylenol (Acetaminophen) 325 Mg Tablet 650 Mg PO TID 7 Days Riomet Oral Solution (Metformin Hcl) 500 Mg/5 Ml Solution 500 Mg PO BIDWMEALS 30 Days Lantus (Insulin Glargine,Hum.rec.anlog) 100 Unit/1 Ml Vial 8 Unit SQ QHS 30 Days Glipizide 5 Mg Tablet 1 Tab PO BID Januvia (Sitagliptin Phosphate) 50 Mg Tablet 1 Tab PO DAILY Fluticasone Propionate Nasal Merced (Fluticasone Propionate) 16 Gm Merced.susp 2 Merced NS DAILY Reported Pantoprazole Sodium (Pantoprazole Sodium) 40 Mg Tablet.dr 40 Mg PO DAILYAC Nuedexta 20-10 Mg Capsule (Dextromethorphan Hbr/Quinidine) 1 Each Capsule 1 Cap PO BID 30 Days Clopidogrel (Clopidogrel Bisulfate) 75 Mg Tablet 1 Tab PO DAILY Escitalopram Oxalate 10 Mg Tablet 1 Tab PO DAILY Aspirin 81 Mg Tab.chew 1 Tab PO DAILY ROS: Review of Systems Review of System Cannot obtain Physical Exam: Vital Signs: Vital Signs Date Time Temp Pulse Resp B/P (MAP) Pulse Ox O2 Delivery O2 Flow Rate FiO2 05/22/21 18:24 Room Air 05/22/21 17:38 90 185/102 (129) 100 05/22/21 15:44 20 05/22/21 12:58 98.5 98.5 Physcial Exam: GEN: No apparent distress. Not alert or oriented, all commands HEENT: Normal cephalic, atraumatic, external auditory canals are patent EYES: Extraocular muscles are intact, pupil are equally round and reactive to light and accommodation MUSCULOSKELETAL: Well developed , well nourished, good range of motion ENDOCRINE: No thyromegaly was palpated LYMPHATICS: No cervical chain or axillary nodes were noted HEMATOPOIETIC: No bruising NECK: Supple, no JVD, no thyromegaly was noted LUNGS: Clear to auscultation in all lung romo without rhonchi or wheezing HEART: RRR, S1, S2 present. Peripheral pulses intact, no obvious murmurs noted ABDOMEN: J-tube in place EXTREMITIES: Without clubbing, cyanosis, or edema. Pedal pulses intact. Negative Homans sign NEUROLOGIC: Could not make sense of any of her speech. Did not follow commands. However pleasant PSYCHIATRIC: Cannot really assess but she is pleasant SKIN: No ulcerations or rashes, good skin turgor, no jaundice VASCULAR: Good capillary refill, neurovascular bundle appears to be intact Labs: Labs: Laboratory Tests Test 05/22/21 13:15 05/22/21 13:30 05/22/21 13:58 05/22/21 15:21 Urine Collection Type Unknown Urine Color (Auto) Yellow Urine Turbidity Clear Urine pH (Auto) 6.5 (<5.0-8.0) Urine Specific Olive 1.028 (1.000-1.030) Urine Protein (Auto) 300 mg/dL (Negative) Urine Glucose (Auto)(UA) Negative mg/dL (Negative) Urine Ketones (Auto) 10 mg/dL (Negative) Urine Blood (Auto) Negative (Negative) Urine Nitrite Negative (Negative) Urine Bilirubin (Auto) Negative (Negative) Urine Urobilinogen (Auto) Normal mg/dL (Normal) Urine Leukocyte Esterase (Auto) Negative (Negative) Urine RBC 0 /HPF (0-2) Urine WBC Occ /HPF (0-4) Urine Squamous Epithelial Cells Few /LPF Urine Bacteria Moderate /HPF (0-FEW) Urine Hyaline Casts Few /HPF Urine Mucus Mod /LPF Urine Opiates Screen Neg (NEG) Urine Methadone Screen Neg (NEG) Urine Barbiturates Neg (NEG) Urine Phencyclidine Screen Neg (NEG) Urine Amphetamine/Methamphetamine Neg (NEG) Urine Benzodiazepines Screen Neg (NEG) Urine Cocaine Screen Neg (NEG) Urine Cannabinoids Screen Pos (NEG) Urine Ethyl Alcohol Neg (NEG) White Blood Count 8.9 x10^3/uL (4.0-11.0) Red Blood Count 3.92 x10^6/uL (3.50-5.40) Hemoglobin 9.5 g/dL (12.0-15.5) Hematocrit 30.5 % (36.0-47.0) Mean Corpuscular Volume 78 fL (79-100) Mean Corpuscular Hemoglobin 24 pg (25-35) Mean Corpuscular Hemoglobin Concent 31 g/dL (31-37) Red Cell Distribution Width 29.2 % (11.5-14.5) Platelet Count 256 x10^3/uL (140-400) Neutrophils (%) (Auto) 74 % (31-73) Lymphocytes (%) (Auto) 19 % (24-48) Monocytes (%) (Auto) 5 % (0-9) Eosinophils (%) (Auto) 1 % (0-3) Basophils (%) (Auto) 1 % (0-3) Neutrophils # (Auto) 6.6 x10^3/uL (1.8-7.7) Lymphocytes # (Auto) 1.7 x10^3/uL (1.0-4.8) Monocytes # (Auto) 0.4 x10^3/uL (0.0-1.1) Eosinophils # (Auto) 0.1 x10^3/uL (0.0-0.7) Basophils # (Auto) 0.1 x10^3/uL (0.0-0.2) Platelet Estimate Adequate (ADEQUATE) Hypochromasia Slight Anisocytosis Mod Argyle Cells Present Prothrombin Time 13.2 SEC (11.7-14.0) Prothromb Time International Ratio 1.0 (0.8-1.1) Activated Partial Thromboplast Time 30 SEC (24-38) Sodium Level 142 mmol/L (136-145) Potassium Level 3.1 mmol/L (3.5-5.1) Chloride Level 107 mmol/L (98-107) Carbon Dioxide Level 25 mmol/L (21-32) Anion Gap 10 (6-14) Blood Urea Nitrogen 10 mg/dL (7-20) Creatinine 0.8 mg/dL (0.6-1.0) Estimated GFR (Cockcroft-Gault) 93.0 BUN/Creatinine Ratio 13 (6-20) Glucose Level 25 mg/dL (70-99) Calcium Level 9.7 mg/dL (8.5-10.1) Total Bilirubin 0.3 mg/dL (0.2-1.0) Aspartate Amino Transf (AST/SGOT) 13 U/L (15-37) Alanine Aminotransferase (ALT/SGPT) 10 U/L (14-59) Alkaline Phosphatase 67 U/L (46-116) Troponin I High Sensitivity 108 ng/L (4-50) LQ-Pxl-S-Type Natriuretic Peptide 1628 pg/mL (0-124) Total Protein 7.5 g/dL (6.4-8.2) Albumin 3.1 g/dL (3.4-5.0) Albumin/Globulin Ratio 0.7 (1.0-1.7) Lipase 152 U/L (73-393) Thyroid Stimulating Hormone (TSH) 0.655 uIU/mL (0.358-3.74) Ethyl Alcohol Level < 10 mg/dL (0-10) Glucose (Fingerstick) 76 mg/dL (70-99) 126 mg/dL (70-99) Test 05/22/21 16:34 Troponin I High Sensitivity 99 ng/L (4-50) Laboratory Tests Test 05/22/21 13:15 05/22/21 13:30 05/22/21 13:58 05/22/21 15:21 Urine Collection Type Unknown Urine Color (Auto) Yellow Urine Turbidity Clear Urine pH (Auto) 6.5 (<5.0-8.0) Urine Specific Olive 1.028 (1.000-1.030) Urine Protein (Auto) 300 mg/dL (Negative) Urine Glucose (Auto)(UA) Negative mg/dL (Negative) Urine Ketones (Auto) 10 mg/dL (Negative) Urine Blood (Auto) Negative (Negative) Urine Nitrite Negative (Negative) Urine Bilirubin (Auto) Negative (Negative) Urine Urobilinogen (Auto) Normal mg/dL (Normal) Urine Leukocyte Esterase (Auto) Negative (Negative) Urine RBC 0 /HPF (0-2) Urine WBC Occ /HPF (0-4) Urine Squamous Epithelial Cells Few /LPF Urine Bacteria Moderate /HPF (0-FEW) Urine Hyaline Casts Few /HPF Urine Mucus Mod /LPF Urine Opiates Screen Neg (NEG) Urine Methadone Screen Neg (NEG) Urine Barbiturates Neg (NEG) Urine Phencyclidine Screen Neg (NEG) Urine Amphetamine/Methamphetamine Neg (NEG) Urine Benzodiazepines Screen Neg (NEG) Urine Cocaine Screen Neg (NEG) Urine Cannabinoids Screen Pos (NEG) Urine Ethyl Alcohol Neg (NEG) White Blood Count 8.9 x10^3/uL (4.0-11.0) Red Blood Count 3.92 x10^6/uL (3.50-5.40) Hemoglobin 9.5 g/dL (12.0-15.5) Hematocrit 30.5 % (36.0-47.0) Mean Corpuscular Volume 78 fL (79-100) Mean Corpuscular Hemoglobin 24 pg (25-35) Mean Corpuscular Hemoglobin Concent 31 g/dL (31-37) Red Cell Distribution Width 29.2 % (11.5-14.5) Platelet Count 256 x10^3/uL (140-400) Neutrophils (%) (Auto) 74 % (31-73) Lymphocytes (%) (Auto) 19 % (24-48) Monocytes (%) (Auto) 5 % (0-9) Eosinophils (%) (Auto) 1 % (0-3) Basophils (%) (Auto) 1 % (0-3) Neutrophils # (Auto) 6.6 x10^3/uL (1.8-7.7) Lymphocytes # (Auto) 1.7 x10^3/uL (1.0-4.8) Monocytes # (Auto) 0.4 x10^3/uL (0.0-1.1) Eosinophils # (Auto) 0.1 x10^3/uL (0.0-0.7) Basophils # (Auto) 0.1 x10^3/uL (0.0-0.2) Platelet Estimate Adequate (ADEQUATE) Hypochromasia Slight Anisocytosis Mod Veronika Cells Present Prothrombin Time 13.2 SEC (11.7-14.0) Prothromb Time International Ratio 1.0 (0.8-1.1) Activated Partial Thromboplast Time 30 SEC (24-38) Sodium Level 142 mmol/L (136-145) Potassium Level 3.1 mmol/L (3.5-5.1) Chloride Level 107 mmol/L (98-107) Carbon Dioxide Level 25 mmol/L (21-32) Anion Gap 10 (6-14) Blood Urea Nitrogen 10 mg/dL (7-20) Creatinine 0.8 mg/dL (0.6-1.0) Estimated GFR (Cockcroft-Gault) 93.0 BUN/Creatinine Ratio 13 (6-20) Glucose Level 25 mg/dL (70-99) Calcium Level 9.7 mg/dL (8.5-10.1) Total Bilirubin 0.3 mg/dL (0.2-1.0) Aspartate Amino Transf (AST/SGOT) 13 U/L (15-37) Alanine Aminotransferase (ALT/SGPT) 10 U/L (14-59) Alkaline Phosphatase 67 U/L (46-116) Troponin I High Sensitivity 108 ng/L (4-50) SF-Qla-E-Type Natriuretic Peptide 1628 pg/mL (0-124) Total Protein 7.5 g/dL (6.4-8.2) Albumin 3.1 g/dL (3.4-5.0) Albumin/Globulin Ratio 0.7 (1.0-1.7) Lipase 152 U/L (73-393) Thyroid Stimulating Hormone (TSH) 0.655 uIU/mL (0.358-3.74) Ethyl Alcohol Level < 10 mg/dL (0-10) Glucose (Fingerstick) 76 mg/dL (70-99) 126 mg/dL (70-99) Test 05/22/21 16:34 Troponin I High Sensitivity 99 ng/L (4-50) Assessment/Plan Assessment/Plan Altered mental status secondary to hypoglycemia versus anemia? NSTEMI; acute lacunar infarct? History CAD CHF type 2 diabetes hypertension stroke J-tube -Presented emergency room to evaluate for altered mental status. Pretty limited history as patient cannot provide any and no family at bedside Anemic which I suspect is chronic sugar in the 20s on presentation. Otherwise outside of a few electrolyte abnormalities and the elevated troponin which needs to be trended labs unremarkable. -Cards consult for elevated troponins and notable cardiac history; started on nitro drip -There is a note on the CT head possible interval lacunar infarct. Will at least give 325 aspirin -Consultation to neurology for possible MRI -N.p.o. -Closely monitor sugars overnight provide dextrose as needed -Continue Plavix -Continue seizure medications -Will hold off home oral antihyperglycemics. Given her hypoglycemia on arrival. May need adjustment on these on discharge. We will put on sliding scale at least for the night and see how patient does -Other home meds as indicated Justifications for Admission Other Justification FLORESITA CANSECO MD May 22, 2021 18:54
[2021-05-23] VITALS (15 sets, daily range): BP systolic 129–167; BP diastolic 76–99
[2021-05-23] MEDS ORDERED: ASPIRIN CHEWABLE 81 MG TABLET. PO ONE
[2021-05-23] MEDS ORDERED: ASPIRIN RECTAL 300 MG SUPP. PR ONE (00:45)
[2021-05-23 05:00] LABS: BASO % 1 % (0-3); EOS # 0.4 x10^3/uL (0.0-0.7); EOS % 5 % (0-3); HEMATOCRIT 27.3 % (36.0-47.0); HEMOGLOBIN 8.6 g/dL (12.0-15.5); LYMPH % 30 % (24-48); MEAN CORPUSCULAR HEMOGLOBIN 25 pg (25-35); MEAN CORPUSCULAR HGB CONC 31 g/dL (31-37); MEAN CORPUSCULAR VOLUME 79 fL (79-100); MONO # 0.7 x10^3/uL (0.0-1.1); MONO % 10 % (0-9); NEUT # 3.6 x10^3/uL (1.8-7.7); NEUT % 54 % (31-73); PLATELET COUNT 227 x10^3/uL (140-400); RED BLOOD COUNT 3.48 x10^6/uL (3.50-5.40); RED CELL DISTRIBUTION WIDTH 29.2 % (11.5-14.5); WHITE BLOOD COUNT 6.7 x10^3/uL (4.0-11.0)
[2021-05-23 05:40] LABS: CALCIUM 9.3 mg/dL (8.5-10.1); CREATININE 0.8 mg/dL (0.6-1.0)
[2021-05-23] MEDS: PANTOPRAZOLE 40 MG TABLET.DR. PO SCH (06:22)
[2021-05-23] MEDS: INSULIN LISPRO 300 UNITS/3 ML VIAL. SQ SCH ×2 (08:00→11:13)
[2021-05-23] MEDS: FLUTICASONE 50MCG/NASAL SPRAY 16GM BOTTLE. NS SCH (09:00)
--- NOTE | 2021-05-23 09:19 | PDOC2 ---
NEUROLOGY CONSULT Date of Service DOS: DATE: 05/23/21 TIME: 09:00 Reason for Consult Reason for Consult: Altered mental status History of Present Illness History of Present Illness The patient is a 45-year-old right-handed female whom I have seen in the past regarding demyelinating disease with negative lumbar puncture and multi-infarct dementia with pseudobulbar affect which has responded to Nuedexta. The demyelinating disease probably reflects multiple infarcts which were related to her previous drug use and hypertension. According to daughter, patient was less alert yesterday morning and felt feverish so she called 911. Sugar was a little low, pulse was a little high, patient was admitted. As far as I can tell, patient is back at her best baseline this morning. She has never had a seizure. Past Medical History Cardiovascular: CAD, CHF, HTN, ND CENTRAL NERVOUS SYSTEM: CVA, Dementia (Multi-infarct) Endocrine: Diabetes Past Surgical History Past Surgical History: , Other (Coronary stents, PEG and PEG removal, breast cyst) Family History Family History: CAD Social History Social History On disability, no alcohol or tobacco, lives with daughter and other family helps Current Medications Current Medications Current Medications Dextrose (Dextrose 50%-Water Syringe) 25 gm 1X ONCE IV ; Start 05/22/21 at 13:00; Stop 05/22/21 at 13:01; Status UNV Dextrose (Iv Dextrose 5%) 500 ml 1X ONCE IV Last administered on 05/22/21at 13:35; Start 05/22/21 at 13:15; Stop 05/22/21 at 13:16; Status DC Dextrose/Sodium Chloride 1,000 ml @ 150 mls/hr 1X ONCE IV Last administered on 05/22/21at 16:02; Start 05/22/21 at 15:00; Stop 05/22/21 at 21:39; Status DC Potassium Chloride (Klor-Con) 40 meq 1X ONCE PO Last administered on 05/22/21at 15:49; Start 05/22/21 at 15:00; Stop 05/22/21 at 15:06; Status DC Aspirin (Aspirin Chewable) 81 mg DAILY PO Last administered on 05/22/21at 15:48; Start 05/22/21 at 16:00 Clopidogrel Bisulfate (Plavix) 75 mg DAILY PO ; Start 05/22/21 at 16:00 Fluticasone Propionate (Flonase) 2 spray DAILY NS ; Start 05/22/21 at 17:00 Pantoprazole Sodium (Protonix) 40 mg DAILYAC PO ; Start 05/22/21 at 17:00 Citalopram Hydrobromide (CeleXA) 20 mg DAILY PO ; Start 05/22/21 at 16:00 Insulin Human Lispro (HumaLOG) 0-7 UNITS TIDWMEALS SQ ; Start 05/22/21 at 17:00 Dextrose (Dextrose 50%-Water Syringe) 12.5 gm PRN Q15MIN PRN IV SEE COMMENTS; Start 05/22/21 at 15:00 Dextrose (Iv Dextrose 5%) 250 ml PRN Q15MIN PRN IV SEE COMMENTS; Start 05/22/21 at 15:00 Ondansetron HCl (Zofran) 4 mg PRN Q8HRS PRN IVP NAUSEA/VOMITING; Start 05/22/21 at 15:15; Stop 05/23/21 at 15:14 Nitroglycerin/ Dextrose 250 ml @ 1.5 mls/hr CONT PRN IV SEE I/O RECORD Last administered on 05/22/21at 19:23; Start 05/22/21 at 18:45 Aspirin (Aspirin Chewable) 324 mg ONCE ONCE PO ; Start 05/23/21 at 00:00; Stop 05/23/21 at 00:01; Status Cancel Aspirin (Aspirin Rectal Supp) 300 mg ONCE ONCE IA Last administered on 05/23/21at 00:50; Start 05/23/21 at 00:45; Stop 05/23/21 at 00:46; Status DC Active Scripts Active Tylenol (Acetaminophen) 325 Mg Tablet 650 Mg PO TID 7 Days Riomet Oral Solution (Metformin Hcl) 500 Mg/5 Ml Solution 500 Mg PO BIDWMEALS 30 Days Lantus (Insulin Glargine,Hum.rec.anlog) 100 Unit/1 Ml Vial 8 Unit SQ QHS 30 Days Glipizide 5 Mg Tablet 1 Tab PO BID Januvia (Sitagliptin Phosphate) 50 Mg Tablet 1 Tab PO DAILY Fluticasone Propionate Nasal [place] (Fluticasone Propionate) 16 Gm [place].susp 2 [place] NS DAILY Reported Pantoprazole Sodium (Pantoprazole Sodium) 40 Mg Tablet.dr 40 Mg PO DAILYAC Nuedexta 20-10 Mg Capsule (Dextromethorphan Hbr/Quinidine) 1 Each Capsule 1 Cap PO BID 30 Days Clopidogrel (Clopidogrel Bisulfate) 75 Mg Tablet 1 Tab PO DAILY Escitalopram Oxalate 10 Mg Tablet 1 Tab PO DAILY Aspirin 81 Mg Tab.chew 1 Tab PO DAILY Allergies Allergies: Coded Allergies: Sulfa (Sulfonamide Antibiotics) (Verified Allergy, Intermediate, hives, 05/22/21) lisinopril (Verified Allergy, Intermediate, hives, 05/22/21) ROS Review of System Negative for fever, chills, weight loss, shortness of breath, chest pain, indigestion, hematochezia, melena, and dysuria. Full 14-point review of systems is negative. Physical Exam Physical Examination General: Well-developed, well-nourished black female in no acute distress HEENT: Normocephalic andatraumatic. Temporal arteriespulsatile and nontender. Neck: Supple without bruit, no meningismus Musculoskeletal: Stability:see neurologic. Gait exam:see neurologic. Tone:see neurologic.Strength:see neurologic. Neurological: Mental Status: orientation, memory, attention span/concentration, language, fund of knowledge: Can tell me her name, names and repeats well, speech is dysarthric. No pseudobulbar affect. Cranial Nerves:Pupils equal and reactive to light, extraocular movements areintact, visual romo are full to confrontation. Facial sensation is normal. There is no facial asymmetry. Vestibulo-ocular reflex is intact. Palate elevates and tongue protrudes in midline. All other cranial related problems are negative except as mentioned before.Reflexes:1+ and symmetric with flexor plantar responses. Motor:3/5 right foot drop, 4//5 strength elsewhere, with normal tone and bulk. Coordination:No dysmetria. Gait:Not tested. Sensory:Stocking loss. Vitals VITALS Vital Signs Date Time Temp Pulse Resp B/P (MAP) Pulse Ox O2 Delivery O2 Flow Rate FiO2 05/23/21 05:06 88 155/88 (110) 05/23/21 03:25 98.4 18 100 Room Air 98.4 Labs Labs Laboratory Tests Test 05/22/21 13:15 05/22/21 13:30 05/22/21 13:58 05/22/21 15:21 Urine Collection Type Unknown Urine Color (Auto) Yellow Urine Turbidity Clear Urine pH (Auto) 6.5 (<5.0-8.0) Urine Specific [place] 1.028 (1.000-1.030) Urine Protein (Auto) 300 mg/dL (Negative) Urine Glucose (Auto)(UA) Negative mg/dL (Negative) Urine Ketones (Auto) 10 mg/dL (Negative) Urine Blood (Auto) Negative (Negative) Urine Nitrite Negative (Negative) Urine Bilirubin (Auto) Negative (Negative) Urine Urobilinogen (Auto) Normal mg/dL (Normal) Urine Leukocyte Esterase (Auto) Negative (Negative) Urine RBC 0 /HPF (0-2) Urine WBC Occ /HPF (0-4) Urine Squamous Epithelial Cells Few /LPF Urine Bacteria Moderate /HPF (0-FEW) Urine Hyaline Casts Few /HPF Urine Mucus Mod /LPF Urine Opiates Screen Neg (NEG) Urine Methadone Screen Neg (NEG) Urine Barbiturates Neg (NEG) Urine Phencyclidine Screen Neg (NEG) Urine Amphetamine/Methamphetamine Neg (NEG) Urine Benzodiazepines Screen Neg (NEG) Urine Cocaine Screen Neg (NEG) Urine Cannabinoids Screen Pos (NEG) Urine Ethyl Alcohol Neg (NEG) White Blood Count 8.9 x10^3/uL (4.0-11.0) Red Blood Count 3.92 x10^6/uL (3.50-5.40) Hemoglobin 9.5 g/dL (12.0-15.5) Hematocrit 30.5 % (36.0-47.0) Mean Corpuscular Volume 78 fL (79-100) Mean Corpuscular Hemoglobin 24 pg (25-35) Mean Corpuscular Hemoglobin Concent 31 g/dL (31-37) Red Cell Distribution Width 29.2 % (11.5-14.5) Platelet Count 256 x10^3/uL (140-400) Neutrophils (%) (Auto) 74 % (31-73) Lymphocytes (%) (Auto) 19 % (24-48) Monocytes (%) (Auto) 5 % (0-9) Eosinophils (%) (Auto) 1 % (0-3) Basophils (%) (Auto) 1 % (0-3) Neutrophils # (Auto) 6.6 x10^3/uL (1.8-7.7) Lymphocytes # (Auto) 1.7 x10^3/uL (1.0-4.8) Monocytes # (Auto) 0.4 x10^3/uL (0.0-1.1) Eosinophils # (Auto) 0.1 x10^3/uL (0.0-0.7) Basophils # (Auto) 0.1 x10^3/uL (0.0-0.2) Platelet Estimate Adequate (ADEQUATE) Hypochromasia Slight Anisocytosis Mod [place] Cells Present Prothrombin Time 13.2 SEC (11.7-14.0) Prothromb Time International Ratio 1.0 (0.8-1.1) Activated Partial Thromboplast Time 30 SEC (24-38) Sodium Level 142 mmol/L (136-145) Potassium Level 3.1 mmol/L (3.5-5.1) Chloride Level 107 mmol/L (98-107) Carbon Dioxide Level 25 mmol/L (21-32) Anion Gap 10 (6-14) Blood Urea Nitrogen 10 mg/dL (7-20) Creatinine 0.8 mg/dL (0.6-1.0) Estimated GFR (Cockcroft-Gault) 93.0 BUN/Creatinine Ratio 13 (6-20) Glucose Level 25 mg/dL (70-99) Calcium Level 9.7 mg/dL (8.5-10.1) Total Bilirubin 0.3 mg/dL (0.2-1.0) Aspartate Amino Transf (AST/SGOT) 13 U/L (15-37) Alanine Aminotransferase (ALT/SGPT) 10 U/L (14-59) Alkaline Phosphatase 67 U/L (46-116) Troponin I High Sensitivity 108 ng/L (4-50) IM-Fzm-F-Type Natriuretic Peptide 1628 pg/mL (0-124) Total Protein 7.5 g/dL (6.4-8.2) Albumin 3.1 g/dL (3.4-5.0) Albumin/Globulin Ratio 0.7 (1.0-1.7) Lipase 152 U/L (73-393) Thyroid Stimulating Hormone (TSH) 0.655 uIU/mL (0.358-3.74) Ethyl Alcohol Level < 10 mg/dL (0-10) Glucose (Fingerstick) 76 mg/dL (70-99) 126 mg/dL (70-99) Test 05/22/21 16:34 05/22/21 16:44 05/22/21 20:38 05/22/21 23:20 Troponin I High Sensitivity 99 ng/L (4-50) 97 ng/L (4-50) Magnesium Level 1.6 mg/dL (1.8-2.4) Glucose (Fingerstick) 70 mg/dL (70-99) Test 05/23/21 03:36 05/23/21 03:40 05/23/21 08:22 Glucose (Fingerstick) 92 mg/dL (70-99) 116 mg/dL (70-99) White Blood Count 6.7 x10^3/uL (4.0-11.0) Red Blood Count 3.48 x10^6/uL (3.50-5.40) Hemoglobin 8.6 g/dL (12.0-15.5) Hematocrit 27.3 % (36.0-47.0) Mean Corpuscular Volume 79 fL (79-100) Mean Corpuscular Hemoglobin 25 pg (25-35) Mean Corpuscular Hemoglobin Concent 31 g/dL (31-37) Red Cell Distribution Width 29.2 % (11.5-14.5) Platelet Count 227 x10^3/uL (140-400) Neutrophils (%) (Auto) 54 % (31-73) Lymphocytes (%) (Auto) 30 % (24-48) Monocytes (%) (Auto) 10 % (0-9) Eosinophils (%) (Auto) 5 % (0-3) Basophils (%) (Auto) 1 % (0-3) Neutrophils # (Auto) 3.6 x10^3/uL (1.8-7.7) Lymphocytes # (Auto) 2.0 x10^3/uL (1.0-4.8) Monocytes # (Auto) 0.7 x10^3/uL (0.0-1.1) Eosinophils # (Auto) 0.4 x10^3/uL (0.0-0.7) Basophils # (Auto) 0.0 x10^3/uL (0.0-0.2) Sodium Level 140 mmol/L (136-145) Potassium Level 3.0 mmol/L (3.5-5.1) Chloride Level 108 mmol/L (98-107) Carbon Dioxide Level 23 mmol/L (21-32) Anion Gap 9 (6-14) Blood Urea Nitrogen 6 mg/dL (7-20) Creatinine 0.8 mg/dL (0.6-1.0) Estimated GFR (Cockcroft-Gault) 93.0 Glucose Level 90 mg/dL (70-99) Calcium Level 9.3 mg/dL (8.5-10.1) Laboratory Tests Test 05/22/21 13:15 05/22/21 13:30 05/22/21 13:58 05/22/21 15:21 Urine Collection Type Unknown Urine Color (Auto) Yellow Urine Turbidity Clear Urine pH (Auto) 6.5 (<5.0-8.0) Urine Specific [place] 1.028 (1.000-1.030) Urine Protein (Auto) 300 mg/dL (Negative) Urine Glucose (Auto)(UA) Negative mg/dL (Negative) Urine Ketones (Auto) 10 mg/dL (Negative) Urine Blood (Auto) Negative (Negative) Urine Nitrite Negative (Negative) Urine Bilirubin (Auto) Negative (Negative) Urine Urobilinogen (Auto) Normal mg/dL (Normal) Urine Leukocyte Esterase (Auto) Negative (Negative) Urine RBC 0 /HPF (0-2) Urine WBC Occ /HPF (0-4) Urine Squamous Epithelial Cells Few /LPF Urine Bacteria Moderate /HPF (0-FEW) Urine Hyaline Casts Few /HPF Urine Mucus Mod /LPF Urine Opiates Screen Neg (NEG) Urine Methadone Screen Neg (NEG) Urine Barbiturates Neg (NEG) Urine Phencyclidine Screen Neg (NEG) Urine Amphetamine/Methamphetamine Neg (NEG) Urine Benzodiazepines Screen Neg (NEG) Urine Cocaine Screen Neg (NEG) Urine Cannabinoids Screen Pos (NEG) Urine Ethyl Alcohol Neg (NEG) White Blood Count 8.9 x10^3/uL (4.0-11.0) Red Blood Count 3.92 x10^6/uL (3.50-5.40) Hemoglobin 9.5 g/dL (12.0-15.5) Hematocrit 30.5 % (36.0-47.0) Mean Corpuscular Volume 78 fL (79-100) Mean Corpuscular Hemoglobin 24 pg (25-35) Mean Corpuscular Hemoglobin Concent 31 g/dL (31-37) Red Cell Distribution Width 29.2 % (11.5-14.5) Platelet Count 256 x10^3/uL (140-400) Neutrophils (%) (Auto) 74 % (31-73) Lymphocytes (%) (Auto) 19 % (24-48) Monocytes (%) (Auto) 5 % (0-9) Eosinophils (%) (Auto) 1 % (0-3) Basophils (%) (Auto) 1 % (0-3) Neutrophils # (Auto) 6.6 x10^3/uL (1.8-7.7) Lymphocytes # (Auto) 1.7 x10^3/uL (1.0-4.8) Monocytes # (Auto) 0.4 x10^3/uL (0.0-1.1) Eosinophils # (Auto) 0.1 x10^3/uL (0.0-0.7) Basophils # (Auto) 0.1 x10^3/uL (0.0-0.2) Platelet Estimate Adequate (ADEQUATE) Hypochromasia Slight Anisocytosis Mod [place] Cells Present Prothrombin Time 13.2 SEC (11.7-14.0) Prothromb Time International Ratio 1.0 (0.8-1.1) Activated Partial Thromboplast Time 30 SEC (24-38) Sodium Level 142 mmol/L (136-145) Potassium Level 3.1 mmol/L (3.5-5.1) Chloride Level 107 mmol/L (98-107) Carbon Dioxide Level 25 mmol/L (21-32) Anion Gap 10 (6-14) Blood Urea Nitrogen 10 mg/dL (7-20) Creatinine 0.8 mg/dL (0.6-1.0) Estimated GFR (Cockcroft-Gault) 93.0 BUN/Creatinine Ratio 13 (6-20) Glucose Level 25 mg/dL (70-99) Calcium Level 9.7 mg/dL (8.5-10.1) Total Bilirubin 0.3 mg/dL (0.2-1.0) Aspartate Amino Transf (AST/SGOT) 13 U/L (15-37) Alanine Aminotransferase (ALT/SGPT) 10 U/L (14-59) Alkaline Phosphatase 67 U/L (46-116) Troponin I High Sensitivity 108 ng/L (4-50) GA-Ktq-W-Type Natriuretic Peptide 1628 pg/mL (0-124) Total Protein 7.5 g/dL (6.4-8.2) Albumin 3.1 g/dL (3.4-5.0) Albumin/Globulin Ratio 0.7 (1.0-1.7) Lipase 152 U/L (73-393) Thyroid Stimulating Hormone (TSH) 0.655 uIU/mL (0.358-3.74) Ethyl Alcohol Level < 10 mg/dL (0-10) Glucose (Fingerstick) 76 mg/dL (70-99) 126 mg/dL (70-99) Test 05/22/21 16:34 05/22/21 16:44 05/22/21 20:38 05/22/21 23:20 Troponin I High Sensitivity 99 ng/L (4-50) 97 ng/L (4-50) Magnesium Level 1.6 mg/dL (1.8-2.4) Glucose (Fingerstick) 70 mg/dL (70-99) Test 05/23/21 03:36 05/23/21 03:40 05/23/21 08:22 Glucose (Fingerstick) 92 mg/dL (70-99) 116 mg/dL (70-99) White Blood Count 6.7 x10^3/uL (4.0-11.0) Red Blood Count 3.48 x10^6/uL (3.50-5.40) Hemoglobin 8.6 g/dL (12.0-15.5) Hematocrit 27.3 % (36.0-47.0) Mean Corpuscular Volume 79 fL (79-100) Mean Corpuscular Hemoglobin 25 pg (25-35) Mean Corpuscular Hemoglobin Concent 31 g/dL (31-37) Red Cell Distribution Width 29.2 % (11.5-14.5) Platelet Count 227 x10^3/uL (140-400) Neutrophils (%) (Auto) 54 % (31-73) Lymphocytes (%) (Auto) 30 % (24-48) Monocytes (%) (Auto) 10 % (0-9) Eosinophils (%) (Auto) 5 % (0-3) Basophils (%) (Auto) 1 % (0-3) Neutrophils # (Auto) 3.6 x10^3/uL (1.8-7.7) Lymphocytes # (Auto) 2.0 x10^3/uL (1.0-4.8) Monocytes # (Auto) 0.7 x10^3/uL (0.0-1.1) Eosinophils # (Auto) 0.4 x10^3/uL (0.0-0.7) Basophils # (Auto) 0.0 x10^3/uL (0.0-0.2) Sodium Level 140 mmol/L (136-145) Potassium Level 3.0 mmol/L (3.5-5.1) Chloride Level 108 mmol/L (98-107) Carbon Dioxide Level 23 mmol/L (21-32) Anion Gap 9 (6-14) Blood Urea Nitrogen 6 mg/dL (7-20) Creatinine 0.8 mg/dL (0.6-1.0) Estimated GFR (Cockcroft-Gault) 93.0 Glucose Level 90 mg/dL (70-99) Calcium Level 9.3 mg/dL (8.5-10.1) Images Images CT HEAD/BRAIN WO CLINICAL HISTORY: Altered mental status. TECHNIQUE: Serial axial images without IV contrast were obtained from the vertex to the foramen magnum. CT Dose Reduction Employed: One or more of the following individualized dose reduction techniques were utilized for this examination: 1. Automated exposure control 2. Adjustment of the mA and/or kV according to patient size 3. Use of iterative reconstruction technique. COMPARISON: 04/10/2020 FINDINGS: Acute Change: No evidence of an acute infarct or other acute parenchymal process. Hemorrhage: No evidence of acute intracranial hemorrhage. Mass Lesion/Mass Effect: No evidence of intracranial mass or extraaxial fluid collection. No significant mass effect. Parenchyma: New small focus of asymmetrically prominent hypoattenuation in the periventricular white matter along the frontal horn of the left lateral ventricle, possibly related to an interval lacunar infarct. Probable small area of encephalomalacia related to remote infarct in the left occipital lobe, similar to prior study. Scattered patchy foci of hypoattenuation in the supratentorial white matter, nonspecific but likely represents mild microvascular ischemia. Ventricles: Enlarged lateral and third ventricles, suggestive of changes secondary to central white matter volume loss. Paranasal Sinuses and Skull Base: Visualized paranasal sinuses clear. Atherosclerotic calcification of the intracranial portion of the bilateral internal carotid arteries. Visualized skull base and soft tissues unremarkable. IMPRESSION: No definitive evidence of acute intracranial abnormality. Findings suspicious for interval lacunar infarct in the left periventricular white matter. MRI could be obtained for further evaluation if there is concern for acute infarct. Probable remote left occipital infarct. Supratentorial white matter changes as described, likely related to chronic microvascular ischemia. Assessment/Plan Assessment/Plan Impression: Metabolic encephalopathy, she did have some hypoglycemia, also has some anemia. Interval development of lacunar stroke on the CT, no clinical evidence of new stroke Elevated troponins, coronary artery disease, cardiology seeing Recommendations: Daughter tells me patient is on aspirin alone at home, she was on Plavix before, suggest home on low-dose aspirin and Plavix combination, Dr. Moran already started. MRI of the brain would not exchange trouble shooter, nor would repeating her stroke work-up. She is not a candidate for any major vascular intervention, so I see no need to repeat vascular studies. Continue Nuedexta when she goes home, it is not on our formulary Optional follow-up with me, or Dr. Barber can refill the Nuedexta Rehabilitation modalities while here Review of chart notes from Dr. Barber show that she is supposed to be on statin and she was planning to recheck her lipids; I ordered lipid panel for tomorrow morning Home as soon as today Full discussion with daughter Thank you for letting me help with the patient's care. CAT DORADO MD May 23, 2021 09:19
--- NOTE | 2021-05-23 10:45 | PDOC2 ---
CARDIAC CONSULT DATE OF CONSULT Date of Consult DATE: 05/23/21 TIME: 10:38 REASON FOR CONSULT Reason for Consult: Elevated troponin, AMS REFERRING PHYSICIAN Referring Physician: Dr. Moran SOURCE Source: Chart review HISTORY OF PRESENT ILLNESS HISTORY OF PRESENT ILLNESS This is a 45 yo female, with a history of multiple prior stroke, who presented secondary to altered mental status. Troponin level noted to be elevated, which prompted this consult. Patient does have right sided weakness and aphasia at baseline. Is unable to effectively communication to tell me what brought her into the ED.per daughter, patient was less alert yesterday morning and felt feverish so she called EMS. No reports of chest pain, shortness of breath, or nausea/vomiting. Blood pressure was elevated yesterday evening and patient was started on nitro gtt. Blood pressure is better controlled. PAST MEDICAL HISTORY Cardiovascular: CAD, HTN CENTRAL NERVOUS SYSTEM: CVA GI: GERD Heme/Onc: Anemia NOS Psych: Anxiety, Depression Musculoskeletal: Osteoarthritis PAST SURGICAL HISTORY Past Surgical History: Other (PCI/stent, . PEG placement and removal) FAMILY HISTORY Family History: Diabetes, Hypertension SOCIAL HISTORY Smoke: No ALCOHOL: none Drugs: Marijuana Lives: with Family CURRENT MEDICATIONS CURRENT MEDICATIONS Current Medications Medications (Trade) Dose Ordered Sig/Payton Route PRN Reason Start Time Stop Time Status Last Admin Dose Admin Dextrose (Iv Dextrose 5%) 500 ml 1X ONCE IV 05/22/21 13:15 05/22/21 13:16 DC 05/22/21 13:35 Dextrose/Sodium Chloride 1,000 ml @ 150 mls/hr 1X ONCE IV 05/22/21 15:00 05/22/21 21:39 DC 05/22/21 16:02 Potassium Chloride (Klor-Con) 40 meq 1X ONCE PO 05/22/21 15:00 05/22/21 15:06 DC 05/22/21 15:49 Aspirin (Aspirin Chewable) 81 mg DAILY PO 05/22/21 16:00 05/22/21 15:48 Nitroglycerin/ Dextrose 250 ml @ 1.5 mls/hr CONT PRN IV SEE I/O RECORD 05/22/21 18:45 05/22/21 19:23 Aspirin (Aspirin Rectal Supp) 300 mg ONCE ONCE NC 05/23/21 00:45 05/23/21 00:46 DC 05/23/21 00:50 ALLERGIES ALLERGIES: Coded Allergies: Sulfa (Sulfonamide Antibiotics) (Verified Allergy, Intermediate, hives, 05/22/21) lisinopril (Verified Allergy, Intermediate, hives, 05/22/21) ROS Review of System Unable to obtain due to aphasia PHYSICAL EXAM General: Alert, Cooperative, No acute distress HEENT: Atraumatic, Mucous membr. moist/pink Lungs: Other Heart: Regular rate Abdomen: Soft, No tenderness Extremities: No edema Neuro: Other (right sided weakness, aphasia ) MUSCULOSKELETAL: Osteoarthritic changes both hands VITALS/I&O VITALS/I&O: Vital Signs Date Time Temp Pulse Resp B/P (MAP) Pulse Ox O2 Delivery O2 Flow Rate FiO2 05/23/21 08:00 Room Air 05/23/21 07:00 98.4 88 18 150/99 (116) 98.4 05/23/21 03:25 100 I & O 05/22/21 05/22/21 05/23/21 15:00 23:00 07:00 Intake Total 1000 ml 0 ml Output Total 1150 ml Balance 1000 ml -1150 ml LABS Lab: Laboratory Tests Test 05/22/21 13:15 05/22/21 13:30 05/22/21 13:58 05/22/21 15:21 Urine Collection Type Unknown Urine Color (Auto) Yellow Urine Turbidity Clear Urine pH (Auto) 6.5 (<5.0-8.0) Urine Specific [place] 1.028 (1.000-1.030) Urine Protein (Auto) 300 mg/dL (Negative) Urine Glucose (Auto)(UA) Negative mg/dL (Negative) Urine Ketones (Auto) 10 mg/dL (Negative) Urine Blood (Auto) Negative (Negative) Urine Nitrite Negative (Negative) Urine Bilirubin (Auto) Negative (Negative) Urine Urobilinogen (Auto) Normal mg/dL (Normal) Urine Leukocyte Esterase (Auto) Negative (Negative) Urine RBC 0 /HPF (0-2) Urine WBC Occ /HPF (0-4) Urine Squamous Epithelial Cells Few /LPF Urine Bacteria Moderate /HPF (0-FEW) Urine Hyaline Casts Few /HPF Urine Mucus Mod /LPF Urine Opiates Screen Neg (NEG) Urine Methadone Screen Neg (NEG) Urine Barbiturates Neg (NEG) Urine Phencyclidine Screen Neg (NEG) Urine Amphetamine/Methamphetamine Neg (NEG) Urine Benzodiazepines Screen Neg (NEG) Urine Cocaine Screen Neg (NEG) Urine Cannabinoids Screen Pos (NEG) Urine Ethyl Alcohol Neg (NEG) White Blood Count 8.9 x10^3/uL (4.0-11.0) Red Blood Count 3.92 x10^6/uL (3.50-5.40) Hemoglobin 9.5 g/dL (12.0-15.5) L Hematocrit 30.5 % (36.0-47.0) L Mean Corpuscular Volume 78 fL (79-100) L Mean Corpuscular Hemoglobin 24 pg (25-35) L Mean Corpuscular Hemoglobin Concent 31 g/dL (31-37) Red Cell Distribution Width 29.2 % (11.5-14.5) H Platelet Count 256 x10^3/uL (140-400) Neutrophils (%) (Auto) 74 % (31-73) H Lymphocytes (%) (Auto) 19 % (24-48) L Monocytes (%) (Auto) 5 % (0-9) Eosinophils (%) (Auto) 1 % (0-3) Basophils (%) (Auto) 1 % (0-3) Neutrophils # (Auto) 6.6 x10^3/uL (1.8-7.7) Lymphocytes # (Auto) 1.7 x10^3/uL (1.0-4.8) Monocytes # (Auto) 0.4 x10^3/uL (0.0-1.1) Eosinophils # (Auto) 0.1 x10^3/uL (0.0-0.7) Basophils # (Auto) 0.1 x10^3/uL (0.0-0.2) Platelet Estimate Adequate (ADEQUATE) Hypochromasia Slight Anisocytosis Mod [place] Cells Present Prothrombin Time 13.2 SEC (11.7-14.0) Prothrombin Time INR 1.0 (0.8-1.1) Activated Partial Thromboplast Time 30 SEC (24-38) Sodium Level 142 mmol/L (136-145) Potassium Level 3.1 mmol/L (3.5-5.1) L Chloride Level 107 mmol/L (98-107) Carbon Dioxide Level 25 mmol/L (21-32) Anion Gap 10 (6-14) Blood Urea Nitrogen 10 mg/dL (7-20) Creatinine 0.8 mg/dL (0.6-1.0) Estimated GFR (Cockcroft-Gault) 93.0 BUN/Creatinine Ratio 13 (6-20) Glucose Level 25 mg/dL (70-99) *L Calcium Level 9.7 mg/dL (8.5-10.1) Total Bilirubin 0.3 mg/dL (0.2-1.0) Aspartate Amino Transferase (AST) 13 U/L (15-37) L Alanine Aminotransferase (ALT) 10 U/L (14-59) L Alkaline Phosphatase 67 U/L (46-116) Troponin I High Sensitivity 108 ng/L (4-50) H ZB-Nek-U-Type Natriuretic Peptide 1628 pg/mL (0-124) H Total Protein 7.5 g/dL (6.4-8.2) Albumin 3.1 g/dL (3.4-5.0) L Albumin/Globulin Ratio 0.7 (1.0-1.7) L Lipase 152 U/L (73-393) Thyroid Stimulating Hormone (TSH) 0.655 uIU/mL (0.358-3.74) Ethyl Alcohol Level < 10 mg/dL (0-10) Glucose (Fingerstick) 76 mg/dL (70-99) 126 mg/dL (70-99) H Test 05/22/21 16:34 05/22/21 16:44 05/22/21 20:38 05/22/21 23:20 Troponin I High Sensitivity 99 ng/L (4-50) H 97 ng/L (4-50) H Magnesium Level 1.6 mg/dL (1.8-2.4) L Glucose (Fingerstick) 70 mg/dL (70-99) Test 05/23/21 03:36 05/23/21 03:40 05/23/21 08:22 Glucose (Fingerstick) 92 mg/dL (70-99) 116 mg/dL (70-99) H White Blood Count 6.7 x10^3/uL (4.0-11.0) Red Blood Count 3.48 x10^6/uL (3.50-5.40) L Hemoglobin 8.6 g/dL (12.0-15.5) L Hematocrit 27.3 % (36.0-47.0) L Mean Corpuscular Volume 79 fL (79-100) Mean Corpuscular Hemoglobin 25 pg (25-35) Mean Corpuscular Hemoglobin Concent 31 g/dL (31-37) Red Cell Distribution Width 29.2 % (11.5-14.5) H Platelet Count 227 x10^3/uL (140-400) Neutrophils (%) (Auto) 54 % (31-73) Lymphocytes (%) (Auto) 30 % (24-48) Monocytes (%) (Auto) 10 % (0-9) H Eosinophils (%) (Auto) 5 % (0-3) H Basophils (%) (Auto) 1 % (0-3) Neutrophils # (Auto) 3.6 x10^3/uL (1.8-7.7) Lymphocytes # (Auto) 2.0 x10^3/uL (1.0-4.8) Monocytes # (Auto) 0.7 x10^3/uL (0.0-1.1) Eosinophils # (Auto) 0.4 x10^3/uL (0.0-0.7) Basophils # (Auto) 0.0 x10^3/uL (0.0-0.2) Sodium Level 140 mmol/L (136-145) Potassium Level 3.0 mmol/L (3.5-5.1) L Chloride Level 108 mmol/L (98-107) H Carbon Dioxide Level 23 mmol/L (21-32) Anion Gap 9 (6-14) Blood Urea Nitrogen 6 mg/dL (7-20) L Creatinine 0.8 mg/dL (0.6-1.0) Estimated GFR (Cockcroft-Gault) 93.0 Glucose Level 90 mg/dL (70-99) Calcium Level 9.3 mg/dL (8.5-10.1) Laboratory Tests 05/22/21 13:30 05/23/21 03:40 Laboratory Tests 05/22/21 13:30 05/23/21 03:40 ECHOCARDIOGRAM ECHOCARDIOGRAM <Conclusion> The left ventricular systolic function is normal and the ejection fraction is within normal range. The Ejection Fraction is 55-60%. There is normal LV segmental wall motion. The interatrial septum is intact with no evidence for an atrial septal defect or patent foramen ovale as noted on 2-D or Doppler imaging. Injection of agitated saline contrast documented no interatrial shunt. DATE: 02/24/18 1011 STRESS TEST STRESS TEST Conclusion 1. No evidence of stress induced EKG changes. 2. Reversible anterior wall defect as noted above with TID at upper limits suggestive of occlusive disease. 3. Normal EF at > 65% 4. Moderate risk study Recommendations Consider coronary angiography DATE: 02/27/18 1251 HEART CATH HEART CATH Conclusion 1. Three-vessel coronary artery disease 2. Successful PCI/bare metal stents placement to the posterolateral branch of right coronary artery, obtuse marginal branch of left circumflex artery and the left anterior descending artery Recommendations 1. Plavix 75 mg daily for preferably one year 2. Aspirin 325 mg daily if okay with gastroenterology team (anemia from possible GI bleed) 3. Check 2-D echo to assess LV systolic function 4. Cardiovascular risk factor modification DATE: 08/25/15 1634 ASSESSMENT/PLAN ASSESSMENT/PLAN 1. Metabolic encephalopathy with hypoglycemia. BG 25 upon arrival. Mentation reportedly back to baseline 2. Elevated troponin; high sensitivity peak 108. most probably type II, demand ischemia 3. Accelerated hypertension; on nitro gtt. remains mildly elevated 4. CAD s/p PCI/BMS to RCA, OM brand of LCx, and LAD 5. H/o multiple CVA's with right sided weakness and expressive aphasia 6. Hyperlipidemia 7. Hypokalemia, hypomagnesemia; replaced Recommendations Resume secondary prevention including ASA/Plavix and high dose statin therapy Add amlodipine for BP control Discontinue nitro gtt Supportive care Outpatient ischemic evaluation DEL CASILLAS APRN May 23, 2021 10:44
[2021-05-23] MEDS ORDERED: MAGNESIUM SULFATE 4GM 100 ML IV ONE (11:00)
[2021-05-23] MEDS ORDERED: POTASSIUM CL 20MEQ D5-0.45NACL 1,000 ML IV SCH (11:00)
[2021-05-23] MEDS: CITALOPRAM 20 MG TABLET. PO SCH (11:25)
[2021-05-23] MEDS: ASPIRIN CHEWABLE 81 MG TABLET. PO SCH (11:25)
[2021-05-23] MEDS ORDERED: ATOR10TA60 PO (12:44)
--- NOTE | 2021-05-23 12:47 | SNU/HH DC ---
DISCHARGE WITH HOME HEALTH DISCHARGE INFORMATION: Discharge Date: May 23, 2021 Final Diagnosis: Metabolic encephalopathy, s hypoglycemia, anemia. Interval development of lacunar stroke on the CT, no clinical evidence of new stroke coronary artery disease, pneudobulbar syndrome - Continue Nuedexta when she goes home, it is not on our formulary Problems Medical Problems: (1) Acute encephalopathy Status: Acute (2) Anemia Status: Acute (3) Cannabis use, uncomplicated Status: Acute (4) Elevated troponin Status: Acute (5) Hypoglycemia Status: Acute (6) Hypokalemia Status: Acute Condition on Discharge: Stable CODE STATUS: Code Status: Full HOME HEALTH: Face to Face: I certify this patient is under my care and that I, had a face to face encounter that meets the physician face to face encounter requirements with this patient on 05/23/21 Medical Complications: CVA RN For Eval/Treatment: Yes Physical Therapy For: Evalulation/Treatment Occupational Therapy For: Evaluation/Treatment Pt Meets Homebound Status: Poor cognition, Psychological condition POST DISCHARGE ORDERS: Activity Instructions for Disc: No restrictions Weight Bearing Status after Di: No restrictions Bathing Instructions: No Tub Bath until see Dr. WU AFTER DISCHARGE: NPO Wound/Incision Care: No wound care needed DC TO SNF OTHER: tube feeds 45 mls/hr, glucerna 1.2 or similar CHECKS AFTER DISCHARGE: Checks after discharge: Check blood press - daily, Check blood sugar, ac/hs, Check your Temp as needed FOLLOW-UP: Follow up with: Optional follow-up with neuro , or Dr. Barber can refill the Nuedexta TREATMENT/EQUIPMENT ORDERS: Adaptive Equipment Issued: None CERTIFICATION STATEMENT: Certification Statement: Certification Statement: Based on the above finding, I certify that this patient is confined to the home and needs intermittent usp care, physical therapy and/or speech therapy, or continues to need occupational therapy.~ This patient is under my care, and I have initiated the establishment of the plan of care.~ This patient will be followed by myself or a community physician who will periodically review the plan of care. Home Meds Active Scripts Amlodipine Besylate (NORVASC) 5 Mg Tablet, 1 TAB PO DAILY for hypertension, #30 TAB 1 Refill Prov:MYRNA ESPINOZA MD 05/23/21 Glipizide (GLIPIZIDE) 5 Mg Tablet, 2.5 MG PO BID for diabtes, #30 TAB 3 Refills Prov:MYRNA ESPINOZA MD 05/23/21 Atorvastatin Calcium (ATORVASTATIN CALCIUM) 10 Mg Tablet, 10 MG PO QHS for cardiac, #30 TAB Prov:MYRNA ESPINOZA MD 05/23/21 Acetaminophen (TYLENOL) 325 Mg Tablet, 650 MG PO TID for 7 Days, #21 TAB Prov:KEI MEJIAS DO 09/14/19 Metformin Hcl (RIOMET ORAL SOLUTION) 500 Mg/5 Ml Solution, 500 MG PO BIDWMEALS for ANTI-DIABETIC for 30 Days, ML 0 Refills Prov:PRATEEK GIVENS MD 04/30/19 Insulin Glargine,Hum.rec.anlog (LANTUS) 100 Unit/1 Ml Vial, 8 UNIT SQ QHS for DM for 30 Days, #1 VIAL Prov:PRATEEK GIVENS MD 04/30/19 Sitagliptin Phosphate (JANUVIA) 50 Mg Tablet, 1 TAB PO DAILY, #30 TAB 0 Refills Prov:MALENA CID COLORIST FORMULATOR 09/18/18 Fluticasone Propionate (FLUTICASONE PROPIONATE NASAL SPRAY) 16 Gm [place].susp, 2 SPRAY NS DAILY, #1 BOTTLE Prov:EULA KENNEDY MD 02/20/16 Reported Medications Pantoprazole Sodium (PANTOPRAZOLE SODIUM ) 40 Mg Tablet.dr, 40 MG PO DAILYAC for GERD, TAB 04/22/21 Dextromethorphan Hbr/Quinidine (NUEDEXTA 20-10 MG CAPSULE) 1 Each Capsule, 1 CAP PO BID for excessive crying for 30 Days, #60 CAP 0 Refills 04/22/21 Clopidogrel Bisulfate (CLOPIDOGREL) 75 Mg Tablet, 1 TAB PO DAILY for blood thinner/hx stroke, #90 TAB 1 Refill 04/22/21 Escitalopram Oxalate (ESCITALOPRAM OXALATE) 10 Mg Tablet, 1 TAB PO DAILY for depression, #30 TAB 3 Refills 04/22/21 Aspirin (ASPIRIN) 81 Mg Tab.chew, 1 TAB PO DAILY, #30 TAB 3 Refills 10/04/13 MYRNA ESPINOZA MD May 23, 2021 12:46
--- NOTE | 2021-05-23 12:49 | PDOC3 ---
Discharge Summary Visit Information Date of Admission: May 22, 2021 Date of Discharge: May 23, 2021 Final Diagnosis prior stroke, aphasia, weakness, dysphagia Metabolic encephalopathy, s hypoglycemia, anemia. Interval development of lacunar stroke on the CT, no clinical evidence of new stroke coronary artery disease, pneudobulbar syndrome - Continue Nuedexta when she goes home, it is not on our formulary Problems Medical Problems: (1) Acute encephalopathy Status: Acute (2) Anemia Status: Acute (3) Cannabis use, uncomplicated Status: Acute (4) Elevated troponin Status: Acute (5) Hypoglycemia Status: Acute (6) Hypokalemia Status: Acute Brief Hospital Course Allergies Allergies Coded Allergies Type Severity Reaction Last Updated Verified Sulfa (Sulfonamide Antibiotics) Allergy Intermediate hives 05/22/21 Yes lisinopril Allergy Intermediate hives 05/22/21 Yes Vital Signs Vital Signs Date Time Temp Pulse Resp B/P (MAP) Pulse Ox O2 Delivery O2 Flow Rate FiO2 05/23/21 11:00 99.5 91 20 159/91 (113) 99.5 05/23/21 08:00 Room Air 05/23/21 03:25 100 Lab Results Laboratory Tests Test 05/22/21 13:15 05/22/21 13:30 05/22/21 13:58 05/22/21 15:21 Urine Collection Type Unknown Urine Color (Auto) Yellow Urine Turbidity Clear Urine pH (Auto) 6.5 (<5.0-8.0) Urine Specific [place] 1.028 (1.000-1.030) Urine Protein (Auto) 300 mg/dL (Negative) Urine Glucose (Auto)(UA) Negative mg/dL (Negative) Urine Ketones (Auto) 10 mg/dL (Negative) Urine Blood (Auto) Negative (Negative) Urine Nitrite Negative (Negative) Urine Bilirubin (Auto) Negative (Negative) Urine Urobilinogen (Auto) Normal mg/dL (Normal) Urine Leukocyte Esterase (Auto) Negative (Negative) Urine RBC 0 /HPF (0-2) Urine WBC Occ /HPF (0-4) Urine Squamous Epithelial Cells Few /LPF Urine Bacteria Moderate /HPF (0-FEW) Urine Hyaline Casts Few /HPF Urine Mucus Mod /LPF Urine Opiates Screen Neg (NEG) Urine Methadone Screen Neg (NEG) Urine Barbiturates Neg (NEG) Urine Phencyclidine Screen Neg (NEG) Urine Amphetamine/Methamphetamine Neg (NEG) Urine Benzodiazepines Screen Neg (NEG) Urine Cocaine Screen Neg (NEG) Urine Cannabinoids Screen Pos (NEG) Urine Ethyl Alcohol Neg (NEG) White Blood Count 8.9 x10^3/uL (4.0-11.0) Red Blood Count 3.92 x10^6/uL (3.50-5.40) Hemoglobin 9.5 g/dL (12.0-15.5) Hematocrit 30.5 % (36.0-47.0) Mean Corpuscular Volume 78 fL (79-100) Mean Corpuscular Hemoglobin 24 pg (25-35) Mean Corpuscular Hemoglobin Concent 31 g/dL (31-37) Red Cell Distribution Width 29.2 % (11.5-14.5) Platelet Count 256 x10^3/uL (140-400) Neutrophils (%) (Auto) 74 % (31-73) Lymphocytes (%) (Auto) 19 % (24-48) Monocytes (%) (Auto) 5 % (0-9) Eosinophils (%) (Auto) 1 % (0-3) Basophils (%) (Auto) 1 % (0-3) Neutrophils # (Auto) 6.6 x10^3/uL (1.8-7.7) Lymphocytes # (Auto) 1.7 x10^3/uL (1.0-4.8) Monocytes # (Auto) 0.4 x10^3/uL (0.0-1.1) Eosinophils # (Auto) 0.1 x10^3/uL (0.0-0.7) Basophils # (Auto) 0.1 x10^3/uL (0.0-0.2) Platelet Estimate Adequate (ADEQUATE) Hypochromasia Slight Anisocytosis Mod [place] Cells Present Prothrombin Time 13.2 SEC (11.7-14.0) Prothromb Time International Ratio 1.0 (0.8-1.1) Activated Partial Thromboplast Time 30 SEC (24-38) Sodium Level 142 mmol/L (136-145) Potassium Level 3.1 mmol/L (3.5-5.1) Chloride Level 107 mmol/L (98-107) Carbon Dioxide Level 25 mmol/L (21-32) Anion Gap 10 (6-14) Blood Urea Nitrogen 10 mg/dL (7-20) Creatinine 0.8 mg/dL (0.6-1.0) Estimated GFR (Cockcroft-Gault) 93.0 BUN/Creatinine Ratio 13 (6-20) Glucose Level 25 mg/dL (70-99) Calcium Level 9.7 mg/dL (8.5-10.1) Total Bilirubin 0.3 mg/dL (0.2-1.0) Aspartate Amino Transf (AST/SGOT) 13 U/L (15-37) Alanine Aminotransferase (ALT/SGPT) 10 U/L (14-59) Alkaline Phosphatase 67 U/L (46-116) Troponin I High Sensitivity 108 ng/L (4-50) JF-Ejy-K-Type Natriuretic Peptide 1628 pg/mL (0-124) Total Protein 7.5 g/dL (6.4-8.2) Albumin 3.1 g/dL (3.4-5.0) Albumin/Globulin Ratio 0.7 (1.0-1.7) Lipase 152 U/L (73-393) Thyroid Stimulating Hormone (TSH) 0.655 uIU/mL (0.358-3.74) Ethyl Alcohol Level < 10 mg/dL (0-10) Glucose (Fingerstick) 76 mg/dL (70-99) 126 mg/dL (70-99) Test 05/22/21 16:34 05/22/21 16:44 05/22/21 20:38 05/22/21 23:20 Troponin I High Sensitivity 99 ng/L (4-50) 97 ng/L (4-50) Magnesium Level 1.6 mg/dL (1.8-2.4) Glucose (Fingerstick) 70 mg/dL (70-99) Test 05/23/21 03:36 05/23/21 03:40 05/23/21 08:22 05/23/21 11:10 Glucose (Fingerstick) 92 mg/dL (70-99) 116 mg/dL (70-99) 133 mg/dL (70-99) White Blood Count 6.7 x10^3/uL (4.0-11.0) Red Blood Count 3.48 x10^6/uL (3.50-5.40) Hemoglobin 8.6 g/dL (12.0-15.5) Hematocrit 27.3 % (36.0-47.0) Mean Corpuscular Volume 79 fL (79-100) Mean Corpuscular Hemoglobin 25 pg (25-35) Mean Corpuscular Hemoglobin Concent 31 g/dL (31-37) Red Cell Distribution Width 29.2 % (11.5-14.5) Platelet Count 227 x10^3/uL (140-400) Neutrophils (%) (Auto) 54 % (31-73) Lymphocytes (%) (Auto) 30 % (24-48) Monocytes (%) (Auto) 10 % (0-9) Eosinophils (%) (Auto) 5 % (0-3) Basophils (%) (Auto) 1 % (0-3) Neutrophils # (Auto) 3.6 x10^3/uL (1.8-7.7) Lymphocytes # (Auto) 2.0 x10^3/uL (1.0-4.8) Monocytes # (Auto) 0.7 x10^3/uL (0.0-1.1) Eosinophils # (Auto) 0.4 x10^3/uL (0.0-0.7) Basophils # (Auto) 0.0 x10^3/uL (0.0-0.2) Sodium Level 140 mmol/L (136-145) Potassium Level 3.0 mmol/L (3.5-5.1) Chloride Level 108 mmol/L (98-107) Carbon Dioxide Level 23 mmol/L (21-32) Anion Gap 9 (6-14) Blood Urea Nitrogen 6 mg/dL (7-20) Creatinine 0.8 mg/dL (0.6-1.0) Estimated GFR (Cockcroft-Gault) 93.0 Glucose Level 90 mg/dL (70-99) Calcium Level 9.3 mg/dL (8.5-10.1) Magnesium Level 1.6 mg/dL (1.8-2.4) Laboratory Tests Test 05/22/21 13:15 05/22/21 13:30 05/22/21 13:58 05/22/21 15:21 Urine Collection Type Unknown Urine Color (Auto) Yellow Urine Turbidity Clear Urine pH (Auto) 6.5 (<5.0-8.0) Urine Specific [place] 1.028 (1.000-1.030) Urine Protein (Auto) 300 mg/dL (Negative) Urine Glucose (Auto)(UA) Negative mg/dL (Negative) Urine Ketones (Auto) 10 mg/dL (Negative) Urine Blood (Auto) Negative (Negative) Urine Nitrite Negative (Negative) Urine Bilirubin (Auto) Negative (Negative) Urine Urobilinogen (Auto) Normal mg/dL (Normal) Urine Leukocyte Esterase (Auto) Negative (Negative) Urine RBC 0 /HPF (0-2) Urine WBC Occ /HPF (0-4) Urine Squamous Epithelial Cells Few /LPF Urine Bacteria Moderate /HPF (0-FEW) Urine Hyaline Casts Few /HPF Urine Mucus Mod /LPF Urine Opiates Screen Neg (NEG) Urine Methadone Screen Neg (NEG) Urine Barbiturates Neg (NEG) Urine Phencyclidine Screen Neg (NEG) Urine Amphetamine/Methamphetamine Neg (NEG) Urine Benzodiazepines Screen Neg (NEG) Urine Cocaine Screen Neg (NEG) Urine Cannabinoids Screen Pos (NEG) Urine Ethyl Alcohol Neg (NEG) White Blood Count 8.9 x10^3/uL (4.0-11.0) Red Blood Count 3.92 x10^6/uL (3.50-5.40) Hemoglobin 9.5 g/dL (12.0-15.5) Hematocrit 30.5 % (36.0-47.0) Mean Corpuscular Volume 78 fL (79-100) Mean Corpuscular Hemoglobin 24 pg (25-35) Mean Corpuscular Hemoglobin Concent 31 g/dL (31-37) Red Cell Distribution Width 29.2 % (11.5-14.5) Platelet Count 256 x10^3/uL (140-400) Neutrophils (%) (Auto) 74 % (31-73) Lymphocytes (%) (Auto) 19 % (24-48) Monocytes (%) (Auto) 5 % (0-9) Eosinophils (%) (Auto) 1 % (0-3) Basophils (%) (Auto) 1 % (0-3) Neutrophils # (Auto) 6.6 x10^3/uL (1.8-7.7) Lymphocytes # (Auto) 1.7 x10^3/uL (1.0-4.8) Monocytes # (Auto) 0.4 x10^3/uL (0.0-1.1) Eosinophils # (Auto) 0.1 x10^3/uL (0.0-0.7) Basophils # (Auto) 0.1 x10^3/uL (0.0-0.2) Platelet Estimate Adequate (ADEQUATE) Hypochromasia Slight Anisocytosis Mod [place] Cells Present Prothrombin Time 13.2 SEC (11.7-14.0) Prothromb Time International Ratio 1.0 (0.8-1.1) Activated Partial Thromboplast Time 30 SEC (24-38) Sodium Level 142 mmol/L (136-145) Potassium Level 3.1 mmol/L (3.5-5.1) Chloride Level 107 mmol/L (98-107) Carbon Dioxide Level 25 mmol/L (21-32) Anion Gap 10 (6-14) Blood Urea Nitrogen 10 mg/dL (7-20) Creatinine 0.8 mg/dL (0.6-1.0) Estimated GFR (Cockcroft-Gault) 93.0 BUN/Creatinine Ratio 13 (6-20) Glucose Level 25 mg/dL (70-99) Calcium Level 9.7 mg/dL (8.5-10.1) Total Bilirubin 0.3 mg/dL (0.2-1.0) Aspartate Amino Transf (AST/SGOT) 13 U/L (15-37) Alanine Aminotransferase (ALT/SGPT) 10 U/L (14-59) Alkaline Phosphatase 67 U/L (46-116) Troponin I High Sensitivity 108 ng/L (4-50) CK-Oxk-P-Type Natriuretic Peptide 1628 pg/mL (0-124) Total Protein 7.5 g/dL (6.4-8.2) Albumin 3.1 g/dL (3.4-5.0) Albumin/Globulin Ratio 0.7 (1.0-1.7) Lipase 152 U/L (73-393) Thyroid Stimulating Hormone (TSH) 0.655 uIU/mL (0.358-3.74) Ethyl Alcohol Level < 10 mg/dL (0-10) Glucose (Fingerstick) 76 mg/dL (70-99) 126 mg/dL (70-99) Test 05/22/21 16:34 05/22/21 16:44 05/22/21 20:38 05/22/21 23:20 Troponin I High Sensitivity 99 ng/L (4-50) 97 ng/L (4-50) Magnesium Level 1.6 mg/dL (1.8-2.4) Glucose (Fingerstick) 70 mg/dL (70-99) Test 05/23/21 03:36 05/23/21 03:40 05/23/21 08:22 05/23/21 11:10 Glucose (Fingerstick) 92 mg/dL (70-99) 116 mg/dL (70-99) 133 mg/dL (70-99) White Blood Count 6.7 x10^3/uL (4.0-11.0) Red Blood Count 3.48 x10^6/uL (3.50-5.40) Hemoglobin 8.6 g/dL (12.0-15.5) Hematocrit 27.3 % (36.0-47.0) Mean Corpuscular Volume 79 fL (79-100) Mean Corpuscular Hemoglobin 25 pg (25-35) Mean Corpuscular Hemoglobin Concent 31 g/dL (31-37) Red Cell Distribution Width 29.2 % (11.5-14.5) Platelet Count 227 x10^3/uL (140-400) Neutrophils (%) (Auto) 54 % (31-73) Lymphocytes (%) (Auto) 30 % (24-48) Monocytes (%) (Auto) 10 % (0-9) Eosinophils (%) (Auto) 5 % (0-3) Basophils (%) (Auto) 1 % (0-3) Neutrophils # (Auto) 3.6 x10^3/uL (1.8-7.7) Lymphocytes # (Auto) 2.0 x10^3/uL (1.0-4.8) Monocytes # (Auto) 0.7 x10^3/uL (0.0-1.1) Eosinophils # (Auto) 0.4 x10^3/uL (0.0-0.7) Basophils # (Auto) 0.0 x10^3/uL (0.0-0.2) Sodium Level 140 mmol/L (136-145) Potassium Level 3.0 mmol/L (3.5-5.1) Chloride Level 108 mmol/L (98-107) Carbon Dioxide Level 23 mmol/L (21-32) Anion Gap 9 (6-14) Blood Urea Nitrogen 6 mg/dL (7-20) Creatinine 0.8 mg/dL (0.6-1.0) Estimated GFR (Cockcroft-Gault) 93.0 Glucose Level 90 mg/dL (70-99) Calcium Level 9.3 mg/dL (8.5-10.1) Magnesium Level 1.6 mg/dL (1.8-2.4) Brief Hospital Course Ms. Al is a 45 old female prior hx of demyelinating disease and multi-infarct dementia with pseudobulbar affect which has responded to Nuedexta. marked confusion, some hypoglycemia, better in AM Discharge Information Condition at Discharge: Improved Follow Up: Weeks Disposition/Orders: D/C to Home w/ HH Scheduled Acetaminophen (Tylenol) 325 Mg Tablet, 650 MG PO TID for 7 Days, #21 Prescribed by: KEI MEJIAS on 09/14/19 0023 Last Action: HELD on 05/22/211455 by FLORESITA CANSECO MD Aspirin (Aspirin) 81 Mg Tab.chew, 1 TAB PO DAILY, #30 Ref 3 (Reported) Entered as Reported by: PHUONG MOTT on 10/04/13 1550 Last Action: Continued on 05/22/211455 by FLORESITA CANSECO MD Atorvastatin Calcium (Atorvastatin Calcium) 10 Mg Tablet, 10 MG PO QHS for cardiac, #30 Prescribed by: MYRNA ESPINOZA on 05/23/21 1244 Clopidogrel Bisulfate (Clopidogrel) 75 Mg Tablet, 1 TAB PO DAILY for blood thinner/hx stroke, #90 Ref 1 (Reported) Entered as Reported by: MANAV WHATLEY on 04/22/21 0642 Last Action: Continued on 05/22/211455 by FLORESITA CANSECO MD Dextromethorphan Hbr/Quinidine (Nuedexta 20-10 Mg Capsule) 1 Each Capsule, 1 CAP PO BID for excessive crying for 30 Days, #60 Ref 0 (Reported) Entered as Reported by: MANAV WHATLEY on 04/22/21 0645 Last Action: Converted on 05/23/21 1239 by DEL DAVIS Escitalopram Oxalate (Escitalopram Oxalate) 10 Mg Tablet, 1 TAB PO DAILY for depression, #30 Ref 3 (Reported) Entered as Reported by: MAANV WHATLEY on 04/22/21 0641 Last Action: Converted on 05/22/211455 by FLORESITA CANSECO MD Fluticasone Propionate (Fluticasone Propionate Nasal [place]) 16 Gm [place].susp, 2 SPRAY NS DAILY, #1 Prescribed by: EULA KENNEDY MD on 02/20/16 1227 Last Action: Continued on 05/22/211455 by FLORESITA CANSECO MD Glipizide (Glipizide) 5 Mg Tablet, 1 TAB PO BID, #30 Ref 3 Prescribed by: Radha Pedroza APRN on 09/18/18104 Last Action: HELD on 05/22/211455 by FLORESITA CANSECO MD Insulin Glargine,Hum.rec.anlog (Lantus) 100 Unit/1 Ml Vial, 8 UNIT SQ QHS for DM for 30 Days, #1 Prescribed by: PRATEEK GIVENS MD on 04/30/191202 Last Action: HELD on 05/22/211455 by FLORESITA CANSECO MD Metformin Hcl (Riomet Oral Solution) 500 Mg/5 Ml Solution, 500 MG PO BIDWMEALS for ANTI-DIABETIC for 30 Days, Ref 0 Prescribed by: PARTEEK GIVENS MD on 04/30/191202 Last Action: HELD on 05/22/211455 by FLORESITA CANSECO MD Pantoprazole Sodium (Pantoprazole Sodium ) 40 Mg Tablet.dr, 40 MG PO DAILYAC for GERD, (Reported) Entered as Reported by: MANAV WHATLEY on 04/22/21 0645 Last Action: Continued on 05/22/211455 by FLORESITA CANSECO MD Sitagliptin Phosphate (Januvia) 50 Mg Tablet, 1 TAB PO DAILY, #30 Ref 0 Prescribed by: Radha Pedroza APRN on 09/18/18104 Last Action: HELD on 05/22/211455 by FLORESITA CANSECO MD Patient Instructions Patient Instructions face to face x2 discussed with daughter, home heaslth 34 minutes Justicifation of Admission Dx: Justifications for Admission: Justification of Admission Dx: N/A MYRNA ESPINOZA MD May 23, 2021 12:49
[2021-05-23] MEDS ORDERED: GLIP5TAB10 PO (12:51)
[2021-05-23] MEDS ORDERED: POTASSIUM BICARB 20 MEQ EFFERVESCENT TABLET. PO ONE (13:30)
[2021-05-23] MEDS ORDERED: AMLO5TAB4 PO (15:52)
--- NOTE | 2021-05-23 15:55 | NUR ---
SS following for discharge planning. SS reviewed pt chart and discussed with pt RN. Pt is from home with family and is currently on room air. PO diet. PT/OT recommended home with home healthcare. SS contacted pt's daughter and discussed. Pt's daughter reported that family provides all cares for pt at this time. Pt's family declined home healthcare. Pt's RN notified. Discharge order on the chart.
--- NOTE | 2021-05-23 18:03 | NUR ---
Discharge Note: MARILU MANCIA Y6 [facility] Discharge instructions and discharge home medications reviewed with Farrowing Worker and a copy given. All questions have been answered and understanding verbalized.
[2021-05-23] MEDS ORDERED: ATORVASTATIN CALCIUM 10 MG TABLET. PO SCH (21:00)
[2021-05-23] MEDS ORDERED: DEXTROMETHORPHAN HBR PO SCH (21:00)
[2021-05-23] MEDS ORDERED: QUINIDINE PO SCH (21:00)
== END 2021-05-23 18:04 | disposition home health service (06) | DRG 637 ==
LOC: ER 12:57 → 6 SOUTH 14:33
PROVIDERS: ADMIT Student in an Organized Health Care Education/Training Program; ATTEND Student in an Organized Health Care Education/Training Program
DX: E11.649 Type 2 diabetes mellitus with hypoglycemia without coma (principal); G93.41 Metabolic encephalopathy; I21.A1 Myocardial infarction type 2; I69.351 Hemiplegia and hemiparesis following cerebral infarction affecting right dominant side; D64.9 Anemia, unspecified; E78.5 Hyperlipidemia, unspecified; E83.42 Hypomagnesemia; E87.6 Hypokalemia; F01.50 Vascular dementia, unspecified severity, without behavioral disturbance, psychotic disturbance, mood disturbance, and anxiety; F12.90 Cannabis use, unspecified, uncomplicated; I11.0 Hypertensive heart disease with heart failure; I25.10 Atherosclerotic heart disease of native coronary artery without angina pectoris; I50.9 Heart failure, unspecified; F32.A Depression, unspecified; F41.9 Anxiety disorder, unspecified; K21.9 Gastro-esophageal reflux disease without esophagitis; M19.90 Unspecified osteoarthritis, unspecified site; I69.311 Memory deficit following cerebral infarction; Z79.02 Long term (current) use of antithrombotics/antiplatelets; Z82.49 Family history of ischemic heart disease and other diseases of the circulatory system; Z83.3 Family history of diabetes mellitus; Z87.891 Personal history of nicotine dependence; Z95.5 Presence of coronary angioplasty implant and graft; Z93.1 Gastrostomy status; I25.2 Old myocardial infarction; I69.320 Aphasia following cerebral infarction
CPT/HCPCS: 36415; 70450; 71045; 80048; 80053; 80307; 81001; 82962; 83690; 83735; 83880; 84443; 84484; 85025; 85610; 85730; 87086; 93005; 96365; 96366; 96375; G0480; J1815; J3475; J3490; J7042; J7060; 92610-GN; 97530-GP; 97535-GO; 99285-25; G0378

== ENCOUNTER → 2021-06-01 | Day surgery (SDC) | payer MEDICAID ==
[~2021-06-01] VITALS: Ht 162.6 cm; Wt 66.0 kg
[~2021-06-01] MED LIST changes: +AMLO5TAB4 PO; +DEXTROSE 50% 25 GM / 50ML DISP.SYRIN. IV ONE; +INSULIN LISPRO 100 UNIT/ML 3ML VIAL for OP,RR ONLY. SQ PRN; +IV RINGERS,LACTATED 1000ML 1,000 ML IV SCH; +LIDOCAINE 2% PF 5 ML VIAL. ONE; +PROPOFOL 10 MG/ML (20ML) VIAL. IV ONE
--- NOTE | 2021-06-01 09:30 | PDOC2 ---
CONSULT Date of Consult Date of Consult DATE: 06/01/21 TIME: 09:27 Reason for Consult Reason for Consult: Improved oropharyngeal dysphagia History of Present Illness Reason for Visit: 45 year old Female is seen with improved oropharyngeal dysphagia. She is tolerating PO and wishes to have her G tube removed. She otheriwse is without additional complaints. Past Medical History Cardiovascular: CAD, HTN Pulmonary: No pertinent hx CENTRAL NERVOUS SYSTEM: CVA GI: GERD Heme/Onc: Anemia NOS Hepatobiliary: No pertinent hx Psych: Anxiety, Depression Musculoskeletal: Osteoarthritis Rheumatologic: No pertinent hx Infectious disease: No pertinent hx Renal/: No pertinent hx, Other Endocrine: Diabetes Past Surgical History Past Surgical History: , Other Family History Family History: Diabetes, Hypertension Social History ALCOHOL: none Drugs: Marijuana Lives: with Family Current Medications Current Medications Current Medications Ringer's Solution 1,000 ml @ 50 mls/hr Q20H IV Last administered on 06/01/21at 09:14; Start 06/01/21 at 07:00; Stop 06/01/21 at 18:59 Insulin Human Lispro (HumaLOG VIAL for OP,RR ONLY) 0-10 units PRN Q1HR PRN SQ PER PROTOCOL; Start 06/01/21 at 09:00; Stop 06/02/21 at 08:59 Dextrose (Dextrose 50%-Water Syringe) 25 gm STK-MED ONCE IV ; Start 06/01/21 at 09:09; Stop 06/01/21 at 09:09; Status DC Dextrose (Dextrose 50%-Water Syringe) 25 gm 1X ONCE IV Last administered on 06/01/21at 09:10; Start 06/01/21 at 09:15; Stop 06/01/21 at 09:17; Status DC Active Scripts Active Glipizide 5 Mg Tablet 2.5 Mg PO BID Atorvastatin Calcium 10 Mg Tablet 10 Mg PO QHS Tylenol (Acetaminophen) 325 Mg Tablet 650 Mg PO TID 7 Days Riomet Oral Solution (Metformin Hcl) 500 Mg/5 Ml Solution 500 Mg PO BIDWMEALS 30 Days Januvia (Sitagliptin Phosphate) 50 Mg Tablet 1 Tab PO DAILY Fluticasone Propionate Nasal [place] (Fluticasone Propionate) 16 Gm [place].susp 2 [place] NS DAILY Reported Pantoprazole Sodium (Pantoprazole Sodium) 40 Mg Tablet.dr 40 Mg PO DAILYAC Nuedexta 20-10 Mg Capsule (Dextromethorphan Hbr/Quinidine) 1 Each Capsule 1 Cap PO BID 30 Days Clopidogrel (Clopidogrel Bisulfate) 75 Mg Tablet 1 Tab PO DAILY Escitalopram Oxalate 10 Mg Tablet 1 Tab PO DAILY Aspirin 81 Mg Tab.chew 1 Tab PO DAILY Allergies Allergies: Coded Allergies: Sulfa (Sulfonamide Antibiotics) (Verified Allergy, Intermediate, hives, 05/22/21) lisinopril (Verified Allergy, Intermediate, hives, 05/22/21) ROS PSYCHOLOGICAL ROS: YES: Anxiety, Mood Swings Physical Exam Lungs: Clear to auscultation Heart: Normal S1, Normal S2 Abdomen: Normal bowel sounds, Soft, No tenderness, Other (PEG :LUQ) Labs Labs Laboratory Tests Test 06/01/21 08:25 POC SARS CoV-2 Antigen Negative (NEGATIVE) Laboratory Tests Test 06/01/21 08:25 POC SARS CoV-2 Antigen Negative (NEGATIVE) Assessment/Plan Assessment/Plan oropharyngeal dysphagia- improved, PEG removal requested. R/B discussed with [id number] who is willing to proceed. RIKI ANTONY MD Jun 01, 2021 09:30
[2021-06-01 10:00] VITALS: BP 141/90
== END | disposition home or self-care (01) ==
LOC: ENDOS 08:09
PROVIDERS: ATTEND Internal Medicine Gastroenterology
DX: Z43.1 Encounter for attention to gastrostomy (principal); R13.12 Dysphagia, oropharyngeal phase; K29.50 Unspecified chronic gastritis without bleeding; Z93.1 Gastrostomy status; I10 Essential (primary) hypertension; K21.9 Gastro-esophageal reflux disease without esophagitis; E11.9 Type 2 diabetes mellitus without complications; F41.9 Anxiety disorder, unspecified; F32.9 Major depressive disorder, single episode, unspecified; Z79.82 Long term (current) use of aspirin; Z79.84 Long term (current) use of oral hypoglycemic drugs; Z79.899 Other long term (current) drug therapy; Z98.890 Other specified postprocedural states; Z87.891 Personal history of nicotine dependence; Z88.2 Allergy status to sulfonamides; Z88.8 Allergy status to other drugs, medicaments and biological substances
CPT/HCPCS: 43247; 82962; J2704